=== PATIENT | female | born 1950 | race Caucasian/White ===

== ENCOUNTER → 2017-04-14 | Outpatient (CLI) | payer MEDICARE ==
--- NOTE | 2017-04-15 13:54 | MM ---
Reason for exam: screening (asymptomatic). Last mammogram was performed 1 year ago. History: Patient is postmenopausal and is nulliparous. Family history of breast cancer in sister at age 58. Benign stereotactic core biopsy of the left breast, January 14, 2004. Core biopsy of the left breast. Took hormonal contraceptives for 1 year. Physical Findings: A clinical breast exam by your physician is recommended on an annual basis and results should be correlated with mammographic findings. MG 3D Screening Mammo W/Cad Bilateral CC and MLO view(s) were taken. Prior study comparison: April 09, 2016, bilateral MG 3d screening mammo w/cad. April 05, 2015, bilateral MG screening mammo w CAD. The breast tissue is heterogeneously dense. This may lower the sensitivity of mammography. No suspicious abnormality. No significant changes when compared with prior studies. ASSESSMENT: Negative, BI-RAD 1 RECOMMENDATION: Routine screening mammogram of both breasts in 1 year.
== END | disposition home or self-care (01) ==
LOC: RADMAMWWP 14:50
PROVIDERS: ATTEND Obstetrics & Gynecology
DX: Z12.31 Encounter for screening mammogram for malignant neoplasm of breast (principal); Z80.3 Family history of malignant neoplasm of breast
CPT/HCPCS: 77063; G0202

== ENCOUNTER 2017-10-13 10:20 | Observation (INO) | payer MEDICARE ==
[2017-10-13] MEDS ORDERED: SODIUM CHLORIDE 0.9% 1,000 ML IV STA (10:45)
[2017-10-13] MEDS ORDERED: ONDANSETRON 4 MG/2 ML VIAL IVP STA (10:45)
[2017-10-13] MEDS ORDERED: DEXAMETHASONE SOD PHOSPHATE 10 MG/ML 1 ML VIAL IV STA (10:46)
[2017-10-13] MEDS ORDERED: MORPHINE SULFATE 4 MG/ML SYRINGE IVP STA (10:47)
--- NOTE | 2017-10-13 11:19 | ED ---
General Adult HPI - General Chief complaint: Recheck/Abnormal Lab/Rx Stated complaint: Head pain Time Seen by Provider: 10/13/17 10:33 Source: patient, RN notes reviewed, old records reviewed Mode of arrival: ambulatory - History of Present Illness Initial comments: This is a 57-year-old female to the ER for evaluation regarding headache. Severe headache 3 days. No history of headache. Patient denies vision loss denies any other complaints. Patient does have shooting pain in her forehead and right side of her head. Patient denies any vision changes currently. No other neurological deficit - Related Data Home Medications Medication Instructions Recorded Confirmed Azithromycin [Zithromax] 250 mg PO MOWEFR 10/13/17 10/13/17 Bimatoprost [Lumigan .01% Ophth 1 drop BOTH EYES HS 10/13/17 10/13/17 Soln] Calcium Carbonate [Calcium] 600 mg PO DAILY 10/13/17 10/13/17 Ibuprofen [Advil] 200 mg PO Q6HR PRN 10/13/17 10/13/17 Mometasone/Formoterol [Dulera 200 2 puff INHALATION RT-BID 10/13/17 10/13/17 Mcg/5 Mcg Inhaler] Tiotropium Stanley [Spiriva] 1 cap INHALATION RT-DAILY 10/13/17 10/13/17 Previous Rx's Medication Instructions Recorded predniSONE 60 mg PO DAILY #30 tab 10/13/17 Allergies Allergy/AdvReac Type Severity Reaction Status Date / Time budesonide [From Symbicort] AdvReac ANXIETY Verified 10/13/17 11:46 formoterol [From Symbicort] AdvReac ANXIETY Verified 10/13/17 11:46 Review of Systems ROS Statement: Those systems with pertinent positive or pertinent negative responses have been documented in the HPI. ROS Other: All systems not noted in ROS Statement are negative. Past Medical History Past Medical History: COPD History of Any Multi-Drug Resistant Organisms: None Reported Past Surgical History: Hernia Repair Additional Past Surgical History / Comment(s): Carpal tunnel; cataract Past Psychological History: No Psychological Hx Reported Smoking Status: Former smoker Past Alcohol Use History: None Reported Past Drug Use History: None Reported General Exam General appearance: alert, in no apparent distress Head exam: Present: atraumatic, normocephalic, normal inspection Eye exam: Present: normal appearance, PERRL, EOMI. Absent: scleral icterus, conjunctival injection, periorbital swelling ENT exam: Present: normal exam, mucous membranes moist Neck exam: Present: normal inspection. Absent: tenderness, meningismus, lymphadenopathy Respiratory exam: Present: normal lung sounds bilaterally. Absent: respiratory distress, wheezes, rales, rhonchi, stridor Cardiovascular Exam: Present: regular rate, normal rhythm, normal heart sounds. Absent: systolic murmur, diastolic murmur, rubs, gallop, clicks GI/Abdominal exam: Present: soft, normal bowel sounds. Absent: distended, tenderness, guarding, rebound, rigid Extremities exam: Present: normal inspection, full ROM, normal capillary refill. Absent: tenderness, pedal edema, joint swelling, calf tenderness Back exam: Present: normal inspection Neurological exam: Present: alert, oriented X3, CN II-XII intact Psychiatric exam: Present: normal affect, normal mood Skin exam: Present: warm, dry, intact, normal color. Absent: rash Course Vital Signs 10/13/17 10/13/17 10/13/17 10:25 10:46 12:22 Temperature 98.5 F Pulse Rate 104 H 95 85 Respiratory 18 18 18 Rate Blood Pressure 195/98 166/92 160/82 O2 Sat by Pulse 99 99 Oximetry - Reevaluation(s) Reevaluation #1: 10/13/17 13:03 Patient headache is resolved, remains without significant neurological deficit no vision changes Reevaluation #2: 10/13/17 13:03 Patient encouraged to stay in the ER for evaluation of possible temporal arteritis, patient refusing state, will discharge on steroids Medical Decision Making - Medical Decision Making 67 female positive headache right-sided headache right-sided temporal tenderness , positive arteritis, will admit - Lab Data Result diagrams: 10/13/17 11:20 10/13/17 11:20 Lab Results 10/13/17 10/13/17 Range/Units 11:20 11:20 WBC 4.5 (3.8-10.6) k/uL RBC 4.59 (3.80-5.40) m/uL Hgb 13.4 (11.4-16.0) gm/dL Hct 40.1 (34.0-46.0) % MCV 87.4 (80.0-100.0) fL MCH 29.2 (25.0-35.0) pg MCHC 33.4 (31.0-37.0) g/dL RDW 13.4 (11.5-15.5) % Plt Count 295 (150-450) k/uL Neutrophils % 66 % Lymphocytes % 22 % Monocytes % 8 % Eosinophils % 1 % Basophils % 0 % Neutrophils # 3.0 (1.3-7.7) k/uL Lymphocytes # 1.0 (1.0-4.8) k/uL Monocytes # 0.3 (0-1.0) k/uL Eosinophils # 0.0 (0-0.7) k/uL Basophils # 0.0 (0-0.2) k/uL ESR 25 H (0-20) mm/hr Sodium 138 (137-145) mmol/L Potassium 4.9 (3.5-5.1) mmol/L Chloride 101 (98-107) mmol/L Carbon Dioxide 28 (22-30) mmol/L Anion Gap 9 mmol/L BUN 14 (7-17) mg/dL Creatinine 0.70 (0.52-1.04) mg/dL Est GFR (CKD-EPI)AfAm >90 (>60 ml/min/1.73 sqM) Est GFR (CKD-EPI)NonAf 90 (>60 ml/min/1.73 sqM) Glucose 97 (74-99) mg/dL Calcium 10.1 (8.4-10.2) mg/dL Total Bilirubin 0.3 (0.2-1.3) mg/dL AST 27 (14-36) U/L ALT 30 (9-52) U/L Alkaline Phosphatase 84 (38-126) U/L C-Reactive Protein 14.4 H (<10.0) mg/L Total Protein 6.5 (6.3-8.2) g/dL Albumin 3.9 (3.5-5.0) g/dL - Radiology Data Radiology results: report reviewed (CT brain is negative for acute disease), image reviewed Disposition Clinical Impression: Temporal arteritis, Headache, Hypertension Disposition: ADMITTED IP TO THIS [facility] Condition: Good Instructions: Temporal Arteritis (ED), Acute Headache (ED) Prescriptions: predniSONE 60 mg PO DAILY #30 tab Is patient prescribed a controlled substance at d/c from ED?: No Referrals: Jluis Mohan DO [Primary Care Provider] - 1-2 days
[2017-10-13 11:36] LABS: Basophils % (A) 0 %; Eosinophils % (A) 1 %; HCT 40.1 % (34.0-46.0); HGB 13.4 gm/dL (11.4-16.0); Lymphocytes % (A) 22 %; MCH 29.2 pg (25.0-35.0); MCHC 33.4 g/dL (31.0-37.0); MCV 87.4 fL (80.0-100.0); Mean Platelet Volume 6.5; Monocytes # (A) 0.3 k/uL (0-1.0); Monocytes % (A) 8 %; Neutrophils % (A) 66 %; Platelet Count 295 k/uL (150-450); RBC 4.59 m/uL (3.80-5.40); RDW 13.4 % (11.5-15.5); WBC 4.5 k/uL (3.8-10.6)
[2017-10-13 11:47] LABS: ALT 30 U/L (9-52); AST 27 U/L (14-36); Albumin 3.9 g/dL (3.5-5.0); Alkaline Phosphatase 84 U/L (38-126); Anion Gap 9 mmol/L; Blood Urea Nitrogen 14 mg/dL (7-17); C Reactive Protein 14.4 mg/L (<10.0); Calcium 10.1 mg/dL (8.4-10.2); Carbon Dioxide 28 mmol/L (22-30); Chloride 101 mmol/L (98-107); Glucose 97 mg/dL (74-99); Potassium 4.9 mmol/L (3.5-5.1); Sodium 138 mmol/L (137-145); Total Bilirubin 0.3 mg/dL (0.2-1.3); Total Protein 6.5 g/dL (6.3-8.2)
--- NOTE | 2017-10-13 12:01 | CT ---
EXAMINATION TYPE: CT brain wo con DATE OF EXAM: 10/13/2017 HISTORY: Head pain, right-sided headache CT DLP: 1100 mGycm. Automated Exposure Control for Dose Reduction was Utilized. TECHNIQUE: CT scan of the head is performed without contrast. COMPARISON: None. FINDINGS: There is no acute intracranial hemorrhage or midline shift identified. There is diffuse v entricular and sulcal prominence consistent with diffuse age-related cerebral atrophy. There are vag ue areas of low-attenuation in the periventricular white matter consistent suspected on basis of prod uct of chronic small vessel ischemic change in patient of this age. The globes are intact and the vi sualized sinuses are clear. IMPRESSION: No acute intracranial hemorrhage or midline shift. There is mild to moderate diffuse a ge-related cerebral atrophy and probable chronic small vessel ischemic change noted.
[2017-10-13 12:34] LABS: Erythrocyte Sedimentation Rate 25 mm/hr (0-20)
[2017-10-13] MEDS ORDERED: predniSONE 20 MG TAB PO STA (13:02)
[2017-10-13] MEDS ORDERED: ACETAMINOPHEN TAB 500 MG TAB PO PRN (15:52)
[2017-10-13] MEDS: NAPROXEN 250 MG TAB PO SCH ×2 (16:54→20:40)
[2017-10-13] MEDS ORDERED: DEXAMETHASONE SOD PHOSPHATE 4 MG/ML 1 ML VIAL IV SCH (18:00)
[2017-10-13] MEDS ORDERED: RX INFO: IV CONTRAST WAS GIVEN 1 EACH MISC MISCELLANE PRN (21:06)
[2017-10-13] MEDS ORDERED: LATANOPROST 0.005% OPHTH DROPS 2.5 ML BTL BOTH EYES SCH (22:30)
[2017-10-13] MEDS: OXcarbazepine 150 MG TAB PO SCH (22:54)
--- NOTE | 2017-10-13 22:54 | CT ---
EXAMINATION TYPE: CT angio head neck DATE OF EXAM: 10/13/2017 HISTORY: Right side facial pain. COMPARISON: NONE CT DLP: 219.1 mGycm. Automated Exposure Control for Dose Reduction was Utilized. TECHNIQUE: CTA scan of the neck and brain is performed with IV Contrast, patient injected with 65ml mL of Isovue 370, axial images are obtained, coronal and sagittal reformatted images are reviewed. Th ree-D reconstructed images are created on an independent workstation and reviewed. FINDINGS: There is normal branching pattern of the great vessels on the aortic arch. There is approximate 30% s tenosis at the origin left internal carotid artery. There is mild plaque and 10-15% stenosis at the o rigin right internal carotid artery. There is arterial flow in the common internal and external carot id arteries bilaterally. There is arterial flow in both vertebral arteries which are fairly symmetric . There is no evidence of carotid or vertebral artery dissection. There is arterial flow in the anter ior middle and posterior cerebral arteries. There is arterial flow in the vertebrobasilar artery syst em. There is patency of the posterior communicating arteries. I see no mass effect. There is no evide nce of aneurysm or neovascularity. There is normal contrast opacification of the venous sinuses. CONCLUSION: Minimal plaque at the carotid artery bifurcations. No evidence of hemodynamically significant stenosi s. Normal CT angiogram of the brain.
--- NOTE | 2017-10-13 23:41 | HP ---
HISTORY AND PHYSICAL DATE OF SERVICE: 10/13/2017 PRESENTING COMPLAINT: Severe headache. HISTORY OF PRESENTING COMPLAINT: This is a very pleasant 67-year-old patient of Dr. Mohan who presents with a severe headache. Patient's headache started about 4 days ago, worse on the right side, localized, and also affecting the face. It is very sharp, lightening, like a pick ax. Vision was not affected. It comes and goes and can be worse with talking or chewing food. Patient was told in the past that she had neuralgia and did get some treatment for that in the past; does not remember what. Has had it occasionally, but now it has become rather severe. No change in vision. No change in speech. No weakness in the arms or legs. Does not feel any weakness in the muscles or difficulty getting up. REVIEW OF SYSTEMS: CONSTITUTIONAL: None. HEENT: As above. RESPIRATORY: None. CARDIOVASCULAR: None. GASTROINTESTINAL: None. GENITOURINARY: None. MUSCULOSKELETAL: None. DERMATOLOGICAL: None. HEMATOLOGICAL: None. LYMPHATICS: None. PSYCHIATRY: None. NEUROLOGICAL: None. PAST MEDICAL HISTORY: 1. COPD. 2. Possible glaucoma. 3. Neuralgia on the right side of the scalp. PAST SURGICAL HISTORY: 1. Breast surgery. 2. Hernia repair. 3. Bilateral carpal tunnel. 4. Bilateral cataract removal with lens. 5. Bronchoscopy. 6. Right inguinal hernia repair. SOCIAL HISTORY: Lives by herself. Smoked for 21 years; stopped in 2009. Denies alcohol. 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 FAMILY HISTORY: Father in his 50s from COPD. HOME MEDICATIONS: 1. Advil 200 mg q.6 p.r.n. 2. Calcium 600 mg p.o. daily. 3. Lumigan 0.01% one drop to both eyes at bedtime. 4. Spiriva 1 capsule daily. 5. Dulera 200/5 two puffs b.i.d. 6. Zithromax 250 mg Wednesday, Wednesday and Wednesday. ALLERGIES: BUDESONIDE. PHYSICAL EXAMINATION: Temperature 97.8, pulse 99, respiration 18, blood pressure 141/81, pulse ox 92% on room air. GENERAL APPEARANCE: Sitting up. Average build. Not in distress. EYES: Pupils equal. Conjunctivae normal. HEENT: Patient has some tenderness in the right side of the scalp. I do not see any pulsating or prominence of scalp artery. External appearance of nose and ears normal. Oral cavity normal. NECK: JVD not raised. Mass not palpable. RESPIRATORY: Effort normal. LUNGS: Slightly decreased breath sounds. CARDIOVASCULAR: First and second sounds normal. No edema. ABDOMEN: Soft, nontender. Liver and spleen not palpable. LYMPHATIC: No lymph node palpable in neck or axillae. PSYCHIATRY: Alert and oriented x3. Mood and affect normal. NEUROLOGICAL: Pupils equal. Cranial nerves grossly intact. Power and sensation grossly intact. INVESTIGATIONS: White count 4.5, hemoglobin 13.4. ESR 25. Potassium 4.9. BUN and creatinine are normal. CRP 14.4. ASSESSMENT: This patient presented with localized severe headache on the right side of the scalp and extending to the right upper part of the face. There are no visual symptoms, no pulsating arteries, no muscle weakness, etc. This could well be trigeminal neuralgia with acute flareup at presentation, but given a slight increase in ESR and CRP, temporal arteritis cannot be ruled out. Patient was given steroids, and I will also start the patient on Trileptal. I will do a CT angio of the neck and the brain. Neurology was consulted. Will consult Vascular Surgery for a temporal artery biopsy. Care was discussed with the patient. Questions were answered. MMODL / IJN: [id number] /
[2017-10-14] MEDS: IPRATROPIUM-ALBUTEROL 3 ML NEB INHALATION SCH ×4 (00:43→19:00)
[2017-10-14 08:00] VITALS: RESP 18
[2017-10-14] MEDS: NAPROXEN 250 MG TAB PO SCH (08:34)
[2017-10-14] MEDS: OXcarbazepine 150 MG TAB PO SCH (08:34)
[2017-10-14] MEDS ORDERED: predniSONE 20 MG TAB PO SCH (09:00)
[2017-10-14] MEDS ORDERED: ENOXAPARIN 40 MG/0.4 ML SYRINGE SQ SCH (09:00)
--- NOTE | 2017-10-14 10:48 | CONS ---
CONSULTATION This is a 67-year-old female. Patient was consulted for right temporal artery biopsy. Patient came with history of headache localized to the right temporal area for the last 4 days. Patient was put on steroid and had an ESR which was found to be 25. Patient did not has any vision problem. Patient's headache comes and goes. MEDICAL HISTORY: History of COPD. SURGICAL HISTORY: Patient had a breast surgery, hernia repair, bilateral carpal tunnel, bilateral cataract and right inguinal hernia repair. PHYSICAL EXAMINATION: Patient was seen in her room. Neck is supple. No bruit appreciated. Patient's temporal artery is palpable. Patient has a right temporal headache. Chest is clear. Abdomen is soft. NEURO: Normal motor function. PLAN: We will do the carotid ultrasound and schedule for a right temporal artery biopsy. Risks and complications of bleeding, infection has been discussed. MMODL / IJN: [id number] /
[2017-10-14 17:12] VITALS: BP 152/72; PULSE 103; TEMP 98
--- NOTE | 2017-10-15 07:34 | DS ---
DISCHARGE SUMMARY DATE OF ADMISSION: 10/13/17. DATE OF DISCHARGE: 10/14/17 FINAL DIAGNOSES: 1. Acute severe trigeminal neuralgia on the right scalp. 2. Chronic obstructive pulmonary disease in an ex-smoker. 3. Glaucoma. HOSPITAL COURSE: This is a patient who has had prior episodes of neuralgia, presents with severe headache, rather classic of trigeminal neuralgia. The patient had a minimally elevated ESR and CRP. I talked to Dr. Feng today. He said to discontinue the prednisone and cancel temporal artery biopsy. The patient's symptoms were more compatible with trigeminal neuralgia and the patient was started on Tegretol. Symptoms are doing better. On examination tenderness on the right side of the face and right side of the scalp. The patient did also have a CT angio was unremarkable. CONSULTATION: Dr. Feng from Neurology. DISCHARGE MEDICATIONS: 1. Zithromax as before. 2. Lumigan 0.1% 1 drop to both eyes q.h.s. 3. Calcium 600 mg p.o. daily. 4. Advil 200 mg q.6h p.r.n. 5. Dulera 200/5 2 puffs b.i.d. 6. Spiriva 1 capsule p.o. daily. 7. Tegretol 100 mg p.o. t.i.d. Follow up with Dr. Mohan in 1 week. Follow up with Dr. Feng in one week. MMODL / IJN: [id number] /
--- NOTE | 2017-10-15 09:31 | CONS ---
CONSULTATION DATE OF CONSULTATION: 10/14/2017 CHIEF COMPLAINT: Facial pain. HISTORY OF PRESENT ILLNESS: The patient is a pleasant 67-year-old female, who is being evaluated by the neurology service per the request of Dr. Nolen, for right facial pain. The patient states that over the past several days, she has been having a sharp stabbing electrical pain over her right forehead and maxillary region of the face. She also states that her face is extremely sensitive to the touch and anything that touches it can bring on this sharp electrical pain. She denies any visual loss, but does complain of some eye pain as well on the right side. The patient had history of trigeminal neuralgia several years ago, which was treated with Tegretol and the symptoms did resolve. She states that this episode is significantly worse as far as intensity. She denies any recent injuries. A CT scan of the brain was done, which showed generalized atrophy and small- vessel ischemic changes. A CT angiogram of the brain and neck were normal. Her Sed rate was slightly elevated at 25 and her CRP was slightly elevated at 14.4. Her CBC and comprehensive metabolic profile were normal. PAST MEDICAL HISTORY: Chronic obstructive pulmonary disease, history of trigeminal neurology, history of carpal tunnel syndrome, carpal tunnel release surgery, breast surgery, hernia repair, cataract surgery. SOCIAL HISTORY: The patient is a former smoker. She denies any alcohol or drug use. FAMILY HISTORY: Positive for chronic obstructive pulmonary disease. HOME MEDICATIONS: Reviewed in the chart. ALLERGIES: BUDESONIDE. REVIEW OF SYSTEMS: As mentioned above and otherwise negative. PHYSICAL EXAM: Vital signs show a temperature of 97.5, pulse 80, respiration 18, blood pressure 126/74. GENERAL APPEARANCE: The patient is a well-developed, elderly female, who appears to be in no acute distress. HEENT: Normocephalic, atraumatic. No tenderness to palpation is present along the temporal region. No facial asymmetry is seen. Neck is supple with no masses felt. CARDIOVASCULAR: Regular rate and rhythm. ABDOMEN: Nontender, nondistended. Extremities showed no edema or clubbing. NEUROLOGICAL EXAM: The patient is alert, aware and oriented x3. Speech and language are normal. Strength is full in all 4 extremities. Sensory exam was normal to light touch in all 4 extremities. No pronator drift is seen. No tremors or seizure- like activity is noticed. Cranial nerve testing showed significant hypersensitivity in the right V1 and V2 distribution. IMPRESSION: Trigeminal neuralgia, right V1 and V2 distribution. RECOMMENDATION: The patient's symptoms are consistent with acute trigeminal neuralgia. There was concern for temporal arteritis from the emergency room admission, but the patient's symptoms are not consistent with this. She has no tenderness to palpation over the temporal artery and her Sed rate and CRP are minimally elevated. Although she does have some eye pain, she denies any visual loss. Her physical examination is also consistent with trigeminal neuralgia. I discussed with the patient results of her workup. I also discussed with her treatment options. I will start her on Tegretol 100 mg 3 times daily. Possible side effects were discussed with the patient. She will follow up in clinic for further management. From a neurology standpoint, the patient is cleared for discharge. If you have any further questions, please feel free to contact me. Thank you for allowing me to participate in the care of your patient. If you have any questions, please feel free to contact me. KEENAN / IJN: [id number] / TABBY
== END 2017-10-14 20:08 | disposition home or self-care (01) ==
LOC: EC 10:20 → 3OBS 13:04
PROVIDERS: ADMIT Hospitalist; ATTEND Hospitalist
DX: G50.0 Trigeminal neuralgia (principal); J44.9 Chronic obstructive pulmonary disease, unspecified; R70.0 Elevated erythrocyte sedimentation rate; H40.9 Unspecified glaucoma; Z87.891 Personal history of nicotine dependence; Z88.8 Allergy status to other drugs, medicaments and biological substances; Z79.899 Other long term (current) drug therapy; Z79.2 Long term (current) use of antibiotics
CPT/HCPCS: 96374 ×2; 96375 ×3; 96361 ×6; 99285 ×2; 96372; 96376; 36415; 94640 ×2; 80053; 85652; 85025; 86140; 87040; 70496; 70450; 70498; G0378 ×2; J2270; J1100 ×2; J2405; J1650; J7512; Q9967

== ENCOUNTER → 2018-05-12 | Outpatient (CLI) | payer MEDICARE ==
--- NOTE | 2018-05-12 22:12 | BD ---
EXAMINATION TYPE: Axial Bone Density DATE OF EXAM: 05/12/2018 COMPARISON: Prior DEXA bone scan 2012. CLINICAL HISTORY: Postmenopausal female Height: 64.5 Weight: 137.0 FRAX RISK QUESTIONS: Alcohol (3 or more units per day): no Family History (Parent hip fracture): yes Glucocorticoids (More than 3mos): no (Ex: prednisone, prednisolone, methylprednisolone, dexamethasone, and hydrocortisone). History of Fracture in Adulthood: yes Secondary Osteoporosis: 1. Type 1 Diabetes: no 2. Hyperthyroidism: no 3. Menopause before 45: no 4. Malnutrition: no 5. Chronic liver disease: no Rheumatoid Arthritis: no Current Tobacco Use: no RISK FACTORS HISTORY OF: Family History of Osteoporosis: yes Active: no Diet low in dairy products/other sources of calcium: yes Postmenopausal woman: age 50 Lost more than 2 inches in height since high school: yes Frequent falls: no MEDICATIONS: inhalers, Zithromax, eye drops Prednisone or other steroids: prednisone How Long: about 1 month Additional History: EXAM MEASUREMENTS: Bone mineral densitometry was performed using the [employer] System. Bone mineral density as measured about the Lumbar spine is: ----- L1-L4(G/cm2): 1.056 T Score Values are as follows: ----- L2: -0.7 ----- L3: -0.8 ----- L4: -1.7 ----- L1-L4: -1.0 Bone mineral density has: decreased -10.1 % since study of: 03.14.2013 Bone mineral density about the R hip (g/cm2): 0.887 Bone mineral density about the L hip (g/cm2): 0.891 T Score values are as follows: -----R Neck: -1.1 -----L Neck: -1.1 -----R Total: -1.5 -----L Total: -0.9 Bone mineral density has: decreased -3.3 % since study of: 03.14.2013 IMPRESSION: Osteopenia (T Score between -2.5 and -1) is now present femoral neck level in both hips. There is slightly increased risk of fracture and the patient may be considered for treatment. Re-Screen 2-5 years. NOTE: T-SCORE=SD OF THE YOUNG ADULT MEAN.
--- NOTE | 2018-05-13 11:14 | MM ---
Reason for exam: screening (asymptomatic). Last mammogram was performed 1 year and 1 month ago. History: Patient is postmenopausal and is nulliparous. Family history of breast cancer in sister at age 58. Benign stereotactic core biopsy of the left breast, January 14, 2004. Core biopsy of the left breast. Took hormonal contraceptives for 1 year. Physical Findings: A clinical breast exam by your physician is recommended on an annual basis and results should be correlated with mammographic findings. MG Screening Mammo w CAD Bilateral CC and MLO view(s) were taken. Prior study comparison: April 14, 2017, bilateral MG 3d screening mammo w/cad. April 09, 2016, bilateral MG 3d screening mammo w/cad. The breast tissue is heterogeneously dense. This may lower the sensitivity of mammography. No significant changes when compared with prior studies. ASSESSMENT: Benign, BI-RAD 2 RECOMMENDATION: Routine screening mammogram of both breasts in 1 year.
== END | disposition home or self-care (01) ==
LOC: RADMAMWWP 14:43
PROVIDERS: ATTEND Obstetrics & Gynecology
DX: Z12.31 Encounter for screening mammogram for malignant neoplasm of breast (principal); Z13.820 Encounter for screening for osteoporosis; M85.852 Other specified disorders of bone density and structure, left thigh; M85.851 Other specified disorders of bone density and structure, right thigh
CPT/HCPCS: 77067; 77080

== ENCOUNTER 2018-09-13 11:57 | Inpatient (IN) | payer MEDICARE ==
[2018-09-13] MEDS ORDERED: methylPREDNISolone SOD SUCCI 125 MG/2 ML VIAL IV STA (12:11)
[2018-09-13] MEDS ORDERED: ALBUTEROL NEBULIZED 2.5 MG/3 ML INHALATION STA ×2 (12:11→15:43)
[2018-09-13] MEDS ORDERED: IPRATROPIUM 0.5 MG/2.5 ML NEBU INHALATION STA (12:11)
[2018-09-13] MEDS ORDERED: SODIUM CHLORIDE 0.9% 500 ML 500 ML IV STA (12:11)
[2018-09-13] MEDS ORDERED: AZITHROMYCIN 500 MG in SODIUM CHLORIDE 0.9% 250 ML IVPB STA (12:11)
--- NOTE | 2018-09-13 12:29 | ED ---
General Adult HPI - General Chief complaint: Shortness of Breath Stated complaint: Sob/chest pain Time Seen by Provider: 09/13/18 12:05 Source: patient, RN notes reviewed, old records reviewed Mode of arrival: wheelchair - History of Present Illness Initial comments: 68-year-old female history COPD presents for evaluation of cough and dyspnea. Patient quit smoking several years ago. She does have history of COPD, she's had cough and dyspnea for the past 2 weeks, this worsened over the past 24 hours. Cough is nonproductive. Initially began as a sore throat with URI sympt oms. Has progressed to more severe dyspnea. She does complain of chest pain worse with cough and chest congestion. No history of CAD, no history of CHF. Denies fever or chills. - Related Data Home Medications Medication Instructions Recorded Confirmed Azithromycin [Zithromax] 250 mg PO MOWEFR 10/13/17 09/13/18 Bimatoprost [Lumigan .01% Ophth 1 drop BOTH EYES HS 10/13/17 09/13/18 Soln] Mometasone/Formoterol [Dulera 200 2 puff INHALATION RT-BID 10/13/17 09/13/18 Mcg/5 Mcg Inhaler] Tiotropium [place] [Spiriva] 1 cap INHALATION RT-DAILY 10/13/17 09/13/18 Benzonatate [Tessalon Perles] 200 mg PO TID PRN 09/13/18 09/13/18 Ibuprofen [Motrin Ib] 200 mg PO Q4H PRN 09/13/18 09/13/18 predniSONE 5 mg PO Q48H 09/13/18 09/13/18 predniSONE See Taper PO DIRECTED 09/13/18 09/13/18 Allergies Allergy/AdvReac Type Severity Reaction Status Date / Time budesonide [From Symbicort] AdvReac ANXIETY Verified 09/13/18 12:39 formoterol [From Symbicort] AdvReac ANXIETY Verified 09/13/18 12:39 Review of Systems ROS Statement: Those systems with pertinent positive or pertinent negative responses have been documented in the HPI. ROS Other: All systems not noted in ROS Statement are negative. Past Medical History Past Medical History: COPD, Eye Disorder Additional Past Medical History / Comment(s): Bronchitis, bilateral eyes with increased intraocular pressure-not glaucoma yet, neuralgia R side forhead in past. History of Any Multi-Drug Resistant Organisms: None Reported Past Surgical History: Breast Surgery, Hernia Repair, Orthopedic Surgery Additional Past Surgical History / Comment(s): Bilateral carpal tunnel; bilateral cataract removal with lens, bronchoscopy, R inguinal hernia repair, co lonoscopy, benign L breast biopsy. Past Anesthesia/Blood Transfusion Reactions: No Reported Reaction Past Psychological History: No Psychological Hx Reported Smoking Status: Former smoker Past Alcohol Use History: None Reported Past Drug Use History: None Reported - Past Family History Father Family Medical History: COPD Additional Family Medical History / Comment(s): Father in his 50s of COPD. He was a smoker. Mother Family Medical History: CVA/TIA, Hypertension, Pneumonia Additional Family Medical History / Comment(s): Mother fell at age 85 and fractured her hip. Post op she became HTN and had a stroke and then ended up w ith pneumonia and . General Exam General appearance: alert, in no apparent distress Head exam: Present: atraumatic, normocephalic Eye exam: Present: normal appearance, PERRL, EOMI ENT exam: Present: normal exam Neck exam: Present: normal inspection. Absent: tenderness, meningismus Respiratory exam: Present: respiratory distress, wheezes, rhonchi, accessory muscle use, decreased breath sounds, prolonged expiratory Cardiovascular Exam: Present: normal rhythm, tachycardia GI/Abdominal exam: Present: soft. Absent: distended, tenderness, guarding, rebound Neurological exam: Present: alert, oriented X3, CN II-XII intact. Absent: motor sensory deficit Psychiatric exam: Present: normal affect, normal mood Skin exam: Present: warm, dry, intact. Absent: cyanosis, diaphoretic Course Vital Signs 09/13/18 09/13/18 09/13/18 12:01 12:26 12:45 Temperature 98.4 F Pulse Rate 122 H 112 H 117 H Pulse Rate [ Methods Analyst Data Processing ] Respiratory 24 Rate Blood Pressure 180/88 O2 Sat by Pulse 94 L Oximetry 09/13/18 09/13/18 09/13/18 12:53 13:08 13:57 Temperature 97.7 F Pulse Rate 111 H 122 H 124 H Pulse Rate [ 111 H Methods Analyst Data Processing ] Respiratory 28 H 22 Rate Blood Pressure 157/83 151/76 O2 Sat by Pulse 98 96 Oximetry 09/13/18 14:32 Temperature Pulse Rate 112 H Pulse Rate [ Methods Analyst Data Processing ] Respiratory 20 Rate Blood Pressure 142/84 O2 Sat by Pulse 96 Oximetry EKG Findings - EKG Comments: EKG Findings:: EKG: Sinus tachycardia, significant right atrial enlargement, no ST segment changes, rate of 112, GA interval 152, QRS duration 78, QTC 417 Medical Decision Making - Medical Decision Making 60-year-old female presents with worsening cough and dyspnea, she has been on appropriate outpatient treatment and is not improved. She has history of COPD, she is diffuse wheezing and rhonchi bilaterally. Chest x-ray obtained, shows hyperinflation consistent with COPD, no focal pneumonia, no pneumothorax. Patient has mild leukocytosis at 12 she has been on steroids. Normal CMP, negative troponin, negative d-dimer, negative BNP, influenza negative. She will be admitted for further treatment of COPD exacerbation. Pulmonology placed on consult. - Lab Data Result diagrams: 09/13/18 12:38 09/13/18 12:38 Lab Results 09/13/18 09/13/18 09/13/18 Range/Units 12:38 12:38 12:38 WBC 12.0 H (3.8-10.6) k/uL RBC 5.11 (3.80-5.40) m/uL Hgb 14.7 (11.4-16.0) gm/dL Hct 46.3 H (34.0-46.0) % MCV 90.5 (80.0-100.0) fL MCH 28.8 (25.0-35.0) pg MCHC 31.8 (31.0-37.0) g/dL RDW 13.7 (11.5-15.5) % Plt Count 306 (150-450) k/uL Neutrophils % 92 % Lymphocytes % 4 % Monocytes % 4 % Eosinophils % 1 % Basophils % 0 % Neutrophils # 11.0 H (1.3-7.7) k/uL Lymphocytes # 0.4 L (1.0-4.8) k/uL Monocytes # 0.5 (0-1.0) k/uL Eosinophils # 0.1 (0-0.7) k/uL Basophils # 0.0 (0-0.2) k/uL PT (9.0-12.0) sec INR (<1.2) APTT (22.0-30.0) sec D-Dimer (<0.60) mg/L FEU Sodium 137 (137-145) mmol/L Potassium 4.7 (3.5-5.1) mmol/L Chloride 101 (98-107) mmol/L Carbon Dioxide 25 (22-30) mmol/L Anion Gap 11 mmol/L BUN 12 (7-17) mg/dL Creatinine 0.72 (0.52-1.04) mg/dL Est GFR (CKD-EPI)AfAm >90 (>60 ml/min/1.73 sqM) Est GFR (CKD-EPI)NonAf 87 (>60 ml/min/1.73 sqM) Glucose 124 H (74-99) mg/dL Plasma Lactic Acid Jer (0.7-2.0) mmol/L Calcium 10.0 (8.4-10.2) mg/dL Magnesium 2.0 (1.6-2.3) mg/dL Total Bilirubin 0.6 (0.2-1.3) mg/dL AST 21 (14-36) U/L ALT 24 (9-52) U/L Alkaline Phosphatase 76 (38-126) U/L Troponin I (0.000-0.034) ng/mL NT-Pro-B Natriuret Pep 100 pg/mL Total Protein 7.1 (6.3-8.2) g/dL Albumin 4.4 (3.5-5.0) g/dL Influenza Type A RNA (Not Detectd) Influenza Type B (PCR) (Not Detectd) 09/13/18 09/13/18 09/13/18 Range/Units 12:38 12:38 12:38 WBC (3.8-10.6) k/uL RBC (3.80-5.40) m/uL Hgb (11.4-16.0) gm/dL Hct (34.0-46.0) % MCV (80.0-100.0) fL MCH (25.0-35.0) pg MCHC (31.0-37.0) g/dL RDW (11.5-15.5) % Plt Count (150-450) k/uL Neutrophils % % Lymphocytes % % Monocytes % % Eosinophils % % Basophils % % Neutrophils # (1.3-7.7) k/uL Lymphocytes # (1.0-4.8) k/uL Monocytes # (0-1.0) k/uL Eosinophils # (0-0.7) k/uL Basophils # (0-0.2) k/uL PT 9.9 (9.0-12.0) sec INR 0.9 (<1.2) APTT 22.9 (22.0-30.0) sec D-Dimer (<0.60) mg/L FEU Sodium (137-145) mmol/L Potassium (3.5-5.1) mmol/L Chloride (98-107) mmol/L Carbon Dioxide (22-30) mmol/L Anion Gap mmol/L BUN (7-17) mg/dL Creatinine (0.52-1.04) mg/dL Est GFR (CKD-EPI)AfAm (>60 ml/min/1.73 sqM) Est GFR (CKD-EPI)NonAf (>60 ml/min/1.73 sqM) Glucose (74-99) mg/dL Plasma Lactic Acid Jer (0.7-2.0) mmol/L Calcium (8.4-10.2) mg/dL Magnesium (1.6-2.3) mg/dL Total Bilirubin (0.2-1.3) mg/dL AST (14-36) U/L ALT (9-52) U/L Alkaline Phosphatase (38-126) U/L Troponin I <0.012 (0.000-0.034) ng/mL NT-Pro-B Natriuret Pep pg/mL Total Protein (6.3-8.2) g/dL Albumin (3.5-5.0) g/dL Influenza Type A RNA Not Detected (Not Detectd) Influenza Type B (PCR) Not Detected (Not Detectd) 09/13/18 09/13/18 Range/Units 12:38 14:30 WBC (3.8-10.6) k/uL RBC (3.80-5.40) m/uL Hgb (11.4-16.0) gm/dL Hct (34.0-46.0) % MCV (80.0-100.0) fL MCH (25.0-35.0) pg MCHC (31.0-37.0) g/dL RDW (11.5-15.5) % Plt Count (150-450) k/uL Neutrophils % % Lymphocytes % % Monocytes % % Eosinophils % % Basophils % % Neutrophils # (1.3-7.7) k/uL Lymphocytes # (1.0-4.8) k/uL Monocytes # (0-1.0) k/uL Eosinophils # (0-0.7) k/uL Basophils # (0-0.2) k/uL PT (9.0-12.0) sec INR (<1.2) APTT (22.0-30.0) sec D-Dimer 0.54 (<0.60) mg/L FEU Sodium (137-145) mmol/L Potassium (3.5-5.1) mmol/L Chloride (98-107) mmol/L Carbon Dioxide (22-30) mmol/L Anion Gap mmol/L BUN (7-17) mg/dL Creatinine (0.52-1.04) mg/dL Est GFR (CKD-EPI)AfAm (>60 ml/min/1.73 sqM) Est GFR (CKD-EPI)NonAf (>60 ml/min/1.73 sqM) Glucose (74-99) mg/dL Plasma Lactic Acid Jer 1.9 (0.7-2.0) mmol/L Calcium (8.4-10.2) mg/dL Magnesium (1.6-2.3) mg/dL Total Bilirubin (0.2-1.3) mg/dL AST (14-36) U/L ALT (9-52) U/L Alkaline Phosphatase (38-126) U/L Troponin I (0.000-0.034) ng/mL NT-Pro-B Natriuret Pep pg/mL Total Protein (6.3-8.2) g/dL Albumin (3.5-5.0) g/dL Influenza Type A RNA (Not Detectd) Influenza Type B (PCR) (Not Detectd) Critical Care Time Critical Care Time: Yes Total Critical Care Time: 35 Disposition Clinical Impression: Acute exacerbation of chronic obstructive airways disease Disposition: ADMITTED IP TO THIS HOSP Condition: Stable Is patient prescribed a controlled substance at d/c from ED?: No Referrals: Jluis Mohan DO [Primary Care Provider] - 1-2 days Decision to Admit Reason: Admit from EC Decision Date: 09/13/18 Decision Time: 15:47
[2018-09-13 13:01] LABS: Basophils % (A) 0 %; Eosinophils # (A) 0.1 k/uL (0-0.7); Eosinophils % (A) 1 %; HCT 46.3 % (34.0-46.0); HGB 14.7 gm/dL (11.4-16.0); Lymphocytes # (A) 0.4 k/uL (1.0-4.8); Lymphocytes % (A) 4 %; MCH 28.8 pg (25.0-35.0); MCHC 31.8 g/dL (31.0-37.0); MCV 90.5 fL (80.0-100.0); Mean Platelet Volume 6.6; Monocytes # (A) 0.5 k/uL (0-1.0); Monocytes % (A) 4 %; Neutrophils % (A) 92 %; Platelet Count 306 k/uL (150-450); RBC 5.11 m/uL (3.80-5.40); RDW 13.7 % (11.5-15.5)
[2018-09-13 13:11] LABS: ALT 24 U/L (9-52); AST 21 U/L (14-36); Albumin 4.4 g/dL (3.5-5.0); Alkaline Phosphatase 76 U/L (38-126); Anion Gap 11 mmol/L; Blood Urea Nitrogen 12 mg/dL (7-17); Carbon Dioxide 25 mmol/L (22-30); Chloride 101 mmol/L (98-107); Glucose 124 mg/dL (74-99); Potassium 4.7 mmol/L (3.5-5.1); Sodium 137 mmol/L (137-145); Total Bilirubin 0.6 mg/dL (0.2-1.3); Total Protein 7.1 g/dL (6.3-8.2)
[2018-09-13 13:15] LABS: INR 0.9 (<1.2); Partial Thromboplastin Time 22.9 sec (22.0-30.0); Prothrombin Time 9.9 sec (9.0-12.0)
[2018-09-13] MEDS ORDERED: SODIUM CHLORIDE 0.9% 500 ML 500 ML IV ONE (14:09)
--- NOTE | 2018-09-13 14:41 | XR ---
EXAMINATION TYPE: XR chest 2V DATE OF EXAM: 09/13/2018 COMPARISON: 07/11/2013 HISTORY: Shortness of breath, cough and congestion TECHNIQUE: Frontal and lateral views of the chest are obtained. FINDINGS: There is no focal air space opacity, pleural effusion, or pneumothorax seen. Pulmonary hy perinflation and flattening of the diaphragms relate to underlying COPD. The cardiac silhouette size is within normal limits. The osseous structures are intact. Mild multilevel degenerative changes of the spine are noted. IMPRESSION: No acute cardiopulmonary process.
[2018-09-13] MEDS ORDERED: IPRATROPIUM-ALBUTEROL 3 ML NEB INHALATION PRN (15:42)
[2018-09-13] MEDS: IPRATROPIUM-ALBUTEROL 3 ML NEB INHALATION SCH ×3 (15:55→23:27)
[2018-09-13] MEDS: SODIUM CHLORIDE 0.9% 1,000 ML IV SCH (16:06)
[2018-09-13 17:08] VITALS: BMI 20.8
[2018-09-13] MEDS: methylPREDNISolone SOD SUCCI 125 MG/2 ML VIAL IV SCH ×2 (17:35→23:40)
[2018-09-13] MEDS ORDERED: NON-FORMULARY DRUG (Mometasone/Formoterol [Dulera 200 Mcg/5 Mcg Inhaler] 2 PUFF) INHALATION SCH (20:00)
[2018-09-13] MEDS: LATANOPROST 0.005% OPHTH DROPS 2.5 ML BTL BOTH EYES SCH (20:45)
[2018-09-13] MEDS: ACETAMINOPHEN TAB 325 MG TAB PO PRN (20:45)
[2018-09-13 21:19] LABS: Glucose,Whole Blood 140 mg/dL (75-99)
[2018-09-13] MEDS: INSULIN ASPART (NovoLOG) 100 UNIT/ML VIAL SQ SCH (21:41)
[2018-09-13] MEDS ORDERED: NALOXONE 0.4 MG/ML 1 ML VIAL IV PRN (21:51)
[2018-09-13] MEDS ORDERED: ALPRAZolam 0.25 MG TAB PO PRN (21:51)
[2018-09-13] MEDS ORDERED: ONDANSETRON 4 MG/2 ML VIAL IVP PRN (21:51)
[2018-09-13] MEDS ORDERED: CALCIUM CARBONATE 500 MG CHEWABLE PO PRN (21:51)
[2018-09-13] MEDS ORDERED: MAGNESIUM HYDROXIDE 2,400 MG/10 ML CUP PO PRN (21:51)
[2018-09-13] MEDS ORDERED: LACTULOSE 20 GM/30 ML CUP PO PRN (21:51)
--- NOTE | 2018-09-13 22:27 | HP ---
HISTORY AND PHYSICAL DATE OF ADMISSION: 09/13/2018 DATE OF SERVICE: 09/13/2018 PRESENTING COMPLAINT: Short of breath. HISTORY OF PRESENTING COMPLAINT: This is a very pleasant 68-year-old patient of Dr. Mohan who developed a chest cold about 2 weeks ago, went and saw Dr. Parker and was given antibiotics, steroids. She really did not feel better. She went back and got a steroid shot and was still getting short of breath, tired. No fever or chills. Some cough. No major sputum production. Tired, rundown, decreased appetite, wheezing at rest, difficulty getting about. Hence admitted to the hospital. REVIEW OF SYSTEMS: CONSTITUTIONAL: Tired. HEENT: None. RESPIRATORY: As above. CARDIOVASCULAR: None. GASTROINTESTINAL: None. GENITOURINARY: None. MUSCULOSKELETAL: None. DERMATOLOGICAL: None. HEMATOLOGICAL: None. LYMPHATICS: None. PSYCHIATRY: None. NEUROLOGICAL: None. PAST MEDICAL HISTORY: COPD, trigeminal neuralgia. PAST SURGICAL HISTORY: 1. Breast surgery. 2. Hernia repair. 3. Orthopedic surgery. 4. Bilateral carpal tunnel surgery. 5. Bilateral cataract removal with lens. 6. Right inguinal hernia repair. SOCIAL HISTORY: The patient smoked for 31 years, stopped 10 years ago. No alcohol. Lives by herself. Does work at [employer]. FAMILY HISTORY: Father of COPD in his 50s. HOME MEDICATIONS: 1. Prednisone 5 mg every 48 hours. 2. Motrin 200 mg q.4 p.r.n. 3. Zithromax 250 mg Wednesday, Wednesday, Wednesday. 4. Spiriva 1 capsule p.o. daily. 5. Dulera 200/5 two puffs b.i.d. 6. Lumigan 0.01 one drop both eyes at bedtime. 7. Tessalon Perles 200 mg t.i.d. p.r.n. ALLERGY: SYMBICORT. PHYSICAL EXAMINATION: Temperature 98.4, pulse 122, respiration 24, blood pressure 157/83, pulse ox 94% on room air. GENERAL APPEARANCE: Sitting up. Short of breath. EYES: Pupils equal. Conjunctivae normal. HEENT: External appearance of nose and ears normal. Oral cavity normal. NECK: JVD not raised. Mass not palpable. RESPIRATORY: Effort increased. Not able to speak in full sentences. LUNGS: Diminished breath sounds. Prolonged expiration. Expiratory wheezing. CARDIOVASCULAR: First and second sounds normal. No edema. ABDOMEN: Soft, non-tender. Liver and spleen not palpable. LYMPHATIC: No lymph node palpable in neck or axillae. PSYCHIATRY: Alert and oriented x3. Mood and affect normal. NEUROLOGICAL: Pupils equal. Cranial nerves grossly intact. Power and sensation grossly intact. INVESTIGATIONS: White count 12, hemoglobin 14.7, potassium 4.7. BUN and creatinine are normal. Influenza A and B negative. EKG tracing, personally reviewed by me, shows sinus tachycardia, evidence of P- pulmonale. Chest x-ray film, personally reviewed by me, shows evidence of emphysema and prominent pulmonary artery; no obvious infiltrates. ASSESSMENT: 1. Acute severe chronic obstructive pulmonary disease exacerbation, having failed outpatient treatment, in an ex-smoker. 2. Possible viral bronchitis. 3. Rule out secondary pulmonary hypertension. PLAN: Patient is started on nebulized bronchodilator every 4 hours, IV Solu-Medrol, inhaled steroids, Lovenox for DVT prophylaxis. Accu-Cheks will be followed. Care was discussed with the patient. Dr. Parker was consulted. Will also do a 2D echo to rule out pulmonary hypertension. MMODL / IJN: [id number] /
[2018-09-13] MEDS: ENOXAPARIN 40 MG/0.4 ML SYRINGE SQ SCH (22:28)
[2018-09-13] MEDS: BUDESONIDE 1 MG/2 ML NEBU INHALATION SCH (22:30)
[2018-09-13] MEDS: FORMOTEROL FUMARATE 20 MCG/2 ML NEBU INHALATION SCH (22:30)
[2018-09-14] MEDS: IPRATROPIUM-ALBUTEROL 3 ML NEB INHALATION SCH ×6 (03:13→23:57)
[2018-09-14] MEDS: SODIUM CHLORIDE 0.9% 1,000 ML IV SCH ×2 (05:07→18:07)
[2018-09-14] MEDS: methylPREDNISolone SOD SUCCI 125 MG/2 ML VIAL IV SCH ×4 (05:35→23:06)
[2018-09-14 07:20] LABS: Glucose,Whole Blood 129 mg/dL (75-99)
[2018-09-14] MEDS: BUDESONIDE 1 MG/2 ML NEBU INHALATION SCH ×2 (07:30→20:12)
[2018-09-14] MEDS: FORMOTEROL FUMARATE 20 MCG/2 ML NEBU INHALATION SCH ×2 (07:30→20:12)
[2018-09-14] MEDS ORDERED: NON-FORMULARY DRUG (Tiotropium Bromide [Spiriva] 1 CAP) INHALATION SCH (08:00)
[2018-09-14] MEDS: ENOXAPARIN 40 MG/0.4 ML SYRINGE SQ SCH (08:08)
[2018-09-14] MEDS: ACETAMINOPHEN TAB 325 MG TAB PO PRN ×2 (08:08→14:46)
[2018-09-14] MEDS: INSULIN ASPART (NovoLOG) 100 UNIT/ML VIAL SQ SCH ×4 (08:10→19:41)
[2018-09-14] MEDS ORDERED: CARVEDILOL 6.25 MG TAB PO SCH (09:30)
--- NOTE | 2018-09-14 10:35 | ECHOF ---
Referral Reason:poss sec pulm hypertension MEASUREMENTS -------- HEIGHT: 165.1 cm WEIGHT: 58.5 kg BP: 113/68 IVSd: 1.2 cm (0.6 - 1.1) LVIDd: 3.5 cm (3.9 - 5.3) LVPWd: 1.2 cm (0.6 - 1.1) IVSs: 1.5 cm LVIDs: 2.4 cm LVPWs: 1.4 cm Ao Diam: 3.2 cm (2.0 - 3.7) AV Cusp: 1.7 cm (1.5 - 2.6) LA Diam: 3.0 cm (2.7 - 3.8) MV EXCURSION: 21.518 mm (> 18.000) MV EF SLOPE: 118 mm/s (70 - 150) EPSS: 0.4 cm MV E Ronnie: 1.19 m/s MV DecT: 131 ms MV A Ronnie: 0.22 m/s MV E/A Ratio: 5.51 RAP: 5.00 mmHg RVSP: 13.38 mmHg FINDINGS -------- Sinus rhythm. This was a technically adequate study. The left ventricular size is normal. There is mild concentric left ventricular hypertrophy. Overa ll left ventricular systolic function is normal with, an EF between 55 - 60 %. The right ventricle is normal in size. The left atrial size is normal. The right atrial size is normal. The aortic valve is trileaflet, and appears structurally normal. No aortic stenosis or regurgitation. Mild mitral regurgitation is present. Mild tricuspid regurgitation present. There is no evidence of pulmonary hypertension. The right v entricular systolic pressure, as measured by Doppler, is 13.38mmHg. There is no pulmonic regurgitation present. The aortic root size is normal. There is no pericardial effusion. CONCLUSIONS -------- 1. The left ventricular size is normal. 2. There is mild concentric left ventricular hypertrophy. 3. Overall left ventricular systolic function is normal with, an EF between 55 - 60 %. 4. The right ventricle is normal in size. 5. The left atrial size is normal. 6. The right atrial size is normal. 7. The aortic valve is trileaflet, and appears structurally normal. No aortic stenosis or regurgitati on. 8. Mild mitral regurgitation is present. 9. Mild tricuspid regurgitation present. 10. There is no evidence of pulmonary hypertension. 11. The right ventricular systolic pressure, as measured by Doppler, is 13.38mmHg. 12. There is no pulmonic regurgitation present. 13. The aortic root size is normal. 14. There is no pericardial effusion. DEVELOPMENT AND HOUSING DIRECTOR: Penny Nguyen RDCS
[2018-09-14 11:43] LABS: Glucose,Whole Blood 123 mg/dL (75-99)
--- NOTE | 2018-09-14 12:49 | P.CNPUL ---
History of Present Illness Consult date: 09/14/18 Requesting physician: Deonte Nolen Reason for consult: dyspnea, cough, COPD Chief complaint: Exacerbation of COPD History of present illness: This is a 68-year-old white female patient of Dr. Mohan today's Dr. 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 Patient presented to the emergency department on 09/13/2018 for evaluation of worsening dyspnea, cough and congestion, but the outpatient t reatment, patient was seen in the pulmonary clinic on 09/02/2018 complaints of coughing, wheezing, shortness of breath. Is producing some thick yellow phlegm at that time, was negative for any fever or chills, hemoptysis or chest pain. Chest x-ray showed no evidence of infiltrates. Patient was treated with the Depo-Medrol 80 mg IM, placed on prednisone taper over 15 days, and oral Levaquin for 10 days. Patient completed the course of treatment, however she did not significantly improve, she went to the urgent care clinic 2 days ago, was treated with another prednisone taper and was given IM dose of steroids and was given some cough medication, but because of persistence of her symptoms she went to the emergency department for further evaluation and treatment. Chest x-ray showed no acute pulmonary process. Denied any fever or chills, influenza screen was negative, patient denies smoking. He quit smoking 10 years ago, does carry [id number] smoking history prior to that. She works at [employer] and could have been exposed to someone sick. White blood cell, is 12.0, hemoglobin is 14.7, d- dimer, coagulation profile were within normal limits, electrolytes and renal profile lactic acid were normal, troponins were negative 2, proBNP is within normal limits at 100, patient was tachycardic, but afebrile, she was given some IV fluids, she was placed on IV steroids, was given a dose of IV Zithromax in the emergency department and admitted for further management. Review of Systems All systems: negative Constitutional: Denies chills, Denies fever Eyes: denies blurred vision, denies pain Ears, nose, mouth and throat: Denies headache, Denies sore throat Cardiovascular: Denies chest pain, Denies shortness of breath Respiratory: Reports congestion, Reports dyspnea, Reports respiratory infections, Reports wheezing, Denies cough Gastrointestinal: Denies abdominal pain, Denies diarrhea, Denies nausea, Denies vomiting Genitourinary: Denies dysuria, Denies hematuria Musculoskeletal: Denies myalgias Integumentary: Denies pruritus, Denies rash Neurological: Denies numbness, Denies weakness Psychiatric: Denies anxiety, Denies depression Endocrine: Denies fatigue, Denies weight change Past Medical History Past Medical History: COPD, Eye Disorder Additional Past Medical History / Comment(s): Bronchitis, bilateral eyes with increased intraocular pressure-not glaucoma yet, neuralgia R side forhead in past. History of Any Multi-Drug Resistant Organisms: None Reported Past Surgical History: Breast Surgery, Hernia Repair, Orthopedic Surgery Additional Past Surgical History / Comment(s): Bilateral carpal tunnel; bilateral cataract removal with lens, bronchoscopy, R inguinal hernia repair, colonoscopy, benign L breast biopsy. Past Anesthesia/Blood Transfusion Reactions: No Reported Reaction Past Psychological History: No Psychological Hx Reported Additional Psychological History / Comment(s): Pt resides alone in a ground floor apartment with 7 steps to get in. She works at [employer]. She drives. She has a nebulizer. Smoking Status: Former smoker Past Alcohol Use History: None Reported Additional Past Alcohol Use History / Comment(s): Pt started smoking in 1978 and quit in 2009. Past Drug Use History: None Reported - Past Family History Father Family Medical History: COPD Additional Family Medical History / Comment(s): Father in his 50s of COPD. He was a smoker. Mother Family Medical History: CVA/TIA, Hypertension, Pneumonia Additional Family Medical History / Comment(s): Mother fell at age 85 and fractured her hip. Post op she became HTN and had a stroke and then ended up with pneumonia and . Medications and Allergies Home Medications Medication Instructions Recorded Confirmed Type Azithromycin [Zithromax] 250 mg PO MOWEFR 10/13/17 09/13/18 History Bimatoprost [Lumigan .01% Ophth 1 drop BOTH EYES HS 10/13/17 09/13/18 History Soln] Mometasone/Formoterol [Dulera 200 2 puff INHALATION RT-BID 10/13/17 09/13/18 History Mcg/5 Mcg Inhaler] Tiotropium [place] [Spiriva] 1 cap INHALATION RT-DAILY 10/13/17 09/13/18 History Benzonatate [Tessalon Perles] 200 mg PO TID PRN 09/13/18 09/13/18 History Ibuprofen [Motrin Ib] 200 mg PO Q4H PRN 09/13/18 09/13/18 History predniSONE 5 mg PO Q48H 09/13/18 09/13/18 History predniSONE See Taper PO DIRECTED 09/13/18 09/13/18 History Allergies Allergy/AdvReac Type Severity Reaction Status Date / Time budesonide [From Symbicort] AdvReac ANXIETY Verified 09/13/18 12:39 formoterol [From Symbicort] AdvReac ANXIETY Verified 09/13/18 12:39 Physical Exam Vitals: Vital Signs Temp Pulse Pulse Pulse Resp BP BP 09/14/18 11:30 102 H 09/14/18 11:19 100 09/14/18 08:00 111 H 22 09/14/18 07:50 108 H 09/14/18 07:41 104 H 09/14/18 07:40 104 H 09/14/18 07:30 104 H 09/14/18 06:58 98.1 F 111 H 22 151/83 09/14/18 03:25 118 H 16 09/14/18 03:13 115 H 18 09/14/18 01:10 98.2 F 111 H 19 164/77 09/13/18 23:39 111 H 09/13/18 23:29 111 H 09/13/18 20:04 100 09/13/18 19:56 100 09/13/18 19:05 98.3 F 112 H 18 155/66 09/13/18 16:41 97.5 F L 116 H 22 149/78 09/13/18 16:16 120 H 09/13/18 16:00 121 H 22 09/13/18 15:56 110 H 09/13/18 15:53 97.9 F 121 H 20 166/75 09/13/18 14:32 112 H 20 142/84 09/13/18 13:57 97.7 F 124 H 22 151/76 09/13/18 13:08 122 H 09/13/18 12:53 111 H 111 H 28 H 157/83 04/16/19 12:45 117 H BP Pulse Ox 04/17/19 11:30 09/14/18 11:19 09/14/18 08:00 09/14/18 07:50 09/14/18 07:41 09/14/18 07:40 09/14/18 07:30 09/14/18 06:58 178/79 94 L 09/14/18 03:25 09/14/18 03:13 09/14/18 01:10 96 09/13/18 23:39 09/13/18 23:29 09/13/18 20:04 09/13/18 19:56 09/13/18 19:05 92 L 09/13/18 16:41 95 09/13/18 16:16 09/13/18 16:00 09/13/18 15:56 09/13/18 15:53 93 L 09/13/18 14:32 96 09/13/18 13:57 96 09/13/18 13:08 09/13/18 12:53 98 09/13/18 12:45 Intake and Output 09/13/18 09/14/18 09/14/18 22:59 06:59 14:59 Intake Total 200 Balance 200 Intake: Oral 200 Other: # Voids 3 1 1 Weight 58.513 kg GENERAL EXAM: Alert, pleasant, 68-year-old white female, comfortable in no apparent distress. HEAD: Normocephalic/atraumatic. EYES: Normal reaction of pupils, equal size. Conjunctiva pink, sclera white. NOSE: Clear with pink turbinates. THROAT: No erythema or exudates. NECK: No masses, no JVD, no thyroid enlargement, no adenopathy. CHEST: No chest wall deformity. Symmetrical expansion. LUNGS: Equal air entry with dementia breath sounds, and expiratory wheezing CVS: Regular rate and rhythm, normal S1 and S2, no gallops, no murmurs, no rubs ABDOMEN: Soft, nontender. No hepatosplenomegaly, normal bowel sounds, no guarding or rigidity. EXTREMITIES: No clubbing, no edema, no cyanosis, 2+ pulses and upper and lower extremities. MUSCULOSKELETAL: Muscle strength and tone normal. SPINE: No scoliosis or deformity SKIN: No rashes CENTRAL NERVOUS SYSTEM: Alert and oriented -3. No focal deficits, tone is normal in all 4 extremities. PSYCHIATRIC: Alert and oriented -3. Appropriate affect. Intact judgment and insight. Results - Laboratory Findings CBC and BMP: 09/13/18 12:38 09/13/18 12:38 PT/INR, D-dimer PT 9.9 sec (9.0-12.0) 09/13/18 12:38 INR 0.9 (<1.2) 09/13/18 12:38 D-Dimer 0.54 mg/L FEU (<0.60) 09/13/18 14:30 Abnormal lab findings: Abnormal Labs 09/13/18 09/13/18 09/13/18 12:38 12:38 21:18 WBC 12.0 H Hct 46.3 H Neutrophils # 11.0 H Lymphocytes # 0.4 L Glucose 124 H POC Glucose (mg/dL) 140 H TSH 09/14/18 09/14/18 09/14/18 06:59 09:22 11:39 WBC Hct Neutrophils # Lymphocytes # Glucose POC Glucose (mg/dL) 129 H 123 H TSH 0.161 L - Diagnostic Findings Chest x-ray: report reviewed, image reviewed Assessment and Plan Plan: Assessment: #1. Acute exacerbation of COPD complicated by a purulent tracheobronchitis with failure of outpatient treatment, chest x-ray did not show any acute pulmonary process, and influenza screen was negative #2. Stage III COPD, steroid dependent, on chronic suppressive therapy with oral Zithromax every other day #3. Tachycardia, troponins have been negative, proBNP is within normal limits, cardiogram showed preserved left ventricular systolic function with an EF between 55-60%, no aortic stenosis or regurgitation, mild mitral regurgitation, no evidence of pulmonary hypertension #4. Former smoker, currently in remission, quit smoking 10 years ago, carries [id number] smoking history #5. Glaucoma Plan: Continue nebulized bronchodilators, IV steroids, Pulmicort, Perforomist, we'll add Zithromax. Try to obtain a sputum culture, and is not producing much sputum. We will add Mucinex. Fever or chills, chest pain, no hemoptysis, chest x-ray has been reviewed with Dr. Overton, did not show any acute pulmonary process. Echo results have been reviewed. Tachycardia has improved, no complaints of chest pain. Troponins are negative. Continue to follow and make further recommendations I performed a history & physical examination of the patient and discussed their management with my nurse practitioner, Tracey Vicente. I reviewed the nurse practitioner's note and agree with the documented findings and plan of care. Lung sounds are positive for diffuse wheezes throughout the lung sterling. The findings and the impression was discussed with the patient. I attest to the documentation by the nurse practitioner. Time with Patient: Greater than 30
[2018-09-14 12:55] LABS: T4, Free (Free Thyroxine) 1.17 ng/dL (0.78-2.19)
[2018-09-14] MEDS ORDERED: AZITHROMYCIN 500 MG TAB PO SCH (13:00)
--- NOTE | 2018-09-14 13:41 | P.CRDCN ---
History of Present Illness History of present illness: This is a pleasant 68-year-old female past medical history significant for COPD and former nicotine dependence. She denies history of coronary artery disease, hypertension, dyslipidemia or diabetes mellitus. 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 She states she has seen Dr. Miles in the past and undergone a stress test which she states was normal. We have been asked to see her in consultation for symptoms of chest discomfort. She is currently admitted into the hospital being treated for an acute exacerbation of COPD. She complains of persistent cough and congestion for the previous 2 weeks. She states she has seen her primary care physician and was given antibiotics and steroids however she did not have much if any improvement. Upon arrival to the hospital blood pressure was 180/88 heart rate was 122. EKG reveals sinus tachycardia with a heart rate of 112. She has been consistently tachycardic since admission with rates 110-124. She also complains of a pleuritic type chest discomfort worse with deep inspiration or when she coughs. The pain is in the midsternal region and radiates both sides of her chest. There is no radiation down the arm, through to the back, into the neck or jaw. She does complain of shortness of breath with exertion however denies any symptoms of palpitations or dizziness. Chest x-ray on admission is negative for acute cardiopulmonary process. Laboratory data reviewed, WBC 12.0, hemoglobin 14.7, platelets 306, d-dimer 0.54, sodium 137, potassium 4.7, creatinine 0.72, magnesium 2.0, cardiac enzymes negative 2, and T proBNP 100, TSH 0.161 with a free T4 of 1.17. She currently takes no cardiac medications. At the time of my exam: CONSTITUTIONAL: Denies fever. Denies chills. EYES: Denies blurred vision. Denies vision changes. Denies eye pain. EARS, NOSE, MOUTH & THROAT: Denies headache. Denies sore throat. Denies ear pain. CARDIOVASCULAR: Complains of pleuritic chest pain. Complains of shortness of breath. Denies orthopnea. Denies PND. Denies palpitations. RESPIRATORY: Complains of cough. GASTROINTESTINAL: Denies abdominal pain. Denies diarrhea. Denies constipation. Denies nausea. Denies vomiting. MUSCULOSKELETAL: Denies myalgias. INTEGUMENTARY: Denies pruitis. Denies rash. NEUROLOGIC: Denies numbness. Denies tingling. Denies weakness. PSYCHIATRIC: Denies anxiety. Denies depression. ENDOCRINE: Denies fatigue. Denies weight change. Denies polydipsia. Denies polyurina. GENITOURINARY: Denies burning, hematuria or urgency with micturation. HEMATOLOGIC: Denies history of anemia. Denies bleeding. Blood pressure 170/79 heart rate 111 afebrile maintaining oxygen saturation on nasal cannula GENERAL: This is a 68-year-old female in no apparent distress at the time of my examination. HEENT: Head is atraumatic, normocephalic. Pupils are equal, round. Sclerae anicteric. Conjunctivae are clear. Mucous membranes of the mouth are moist. Neck is supple. There is no jugular venous distention. No carotid bruit is heard. LUNGS: Clear to auscultation no wheezes, rales or rhonchi. No chest wall tenderness is noted on palpation or with deep breathing. HEART: Regular rate and rhythm without murmurs, rubs or gallops. S1 and S2 heard. ABDOMEN: Soft, nontender. Bowel sounds are heard. No organomegaly noted. EXTREMITIES: No evidence of peripheral edema and no calf tenderness noted. VASCULAR: Radial and dorsalis pedis pulses palpated, no evidence of clubbing. NEUROLOGIC: Patient is awake, alert and oriented x3. ASSESSMENT Sinus tachycardia secondary to steroids and inhalers as well as infectious process. Acute exacerbation of COPD Pleuritic chest pain, atypical for angina. An acute coronary event has been ruled out. PLAN Echocardiogram has been obtained and reviewed and reveals normal LV systolic function. Thyroid studies have been requested and reviewed as well. Due to her hypertension and tachycardia we will start on metoprolol 25 mg twice a day. Ongoing medical management of acute exacerbation of COPD. Thank you kindly for this consultation. Nurse Practitioner note has been reviewed, I agree with a documented findings and plan of care. Patient was seen and examined. Past Medical History Past Medical History: COPD, Eye Disorder Additional Past Medical History / Comment(s): Bronchitis, bilateral eyes with increased intraocular pressure-not glaucoma yet, neuralgia R side forhead in past. History of Any Multi-Drug Resistant Organisms: None Reported Past Surgical History: Breast Surgery, Hernia Repair, Orthopedic Surgery Additional Past Surgical History / Comment(s): Bilateral carpal tunnel; bilateral cataract removal with lens, bronchoscopy, R inguinal hernia repair, colonoscopy, benign L breast biopsy. Past Anesthesia/Blood Transfusion Reactions: No Reported Reaction Past Psychological History: No Psychological Hx Reported Additional Psychological History / Comment(s): Pt resides alone in a ground floor apartment with 7 steps to get in. She works at [employer]. She drives. She has a nebulizer. Smoking Status: Former smoker Past Alcohol Use History: None Reported Additional Past Alcohol Use History / Comment(s): Pt started smoking in 1978 and quit in 2009. Past Drug Use History: None Reported - Past Family History Father Family Medical History: COPD Additional Family Medical History / Comment(s): Father in his 50s of COPD. He was a smoker. Mother Family Medical History: CVA/TIA, Hypertension, Pneumonia Additional Family Medical History / Comment(s): Mother fell at age 85 and frac tured her hip. Post op she became HTN and had a stroke and then ended up with pneumonia and . Medications and Allergies Home Medications Medication Instructions Recorded Confirmed Type Azithromycin [Zithromax] 250 mg PO MOWEFR 10/13/17 09/13/18 History Bimatoprost [Lumigan .01% Ophth 1 drop BOTH EYES HS 10/13/17 09/13/18 History Soln] Mometasone/Formoterol [Dulera 200 2 puff INHALATION RT-BID 10/13/17 09/13/18 History Mcg/5 Mcg Inhaler] Tiotropium [place] [Spiriva] 1 cap INHALATION RT-DAILY 10/13/17 09/13/18 History Benzonatate [Tessalon Perles] 200 mg PO TID PRN 09/13/18 09/13/18 History Ibuprofen [Motrin Ib] 200 mg PO Q4H PRN 09/13/18 09/13/18 History predniSONE 5 mg PO Q48H 09/13/18 09/13/18 History predniSONE See Taper PO DIRECTED 09/13/18 09/13/18 History Allergies Allergy/AdvReac Type Severity Reaction Status Date / Time budesonide [From Symbicort] AdvReac ANXIETY Verified 09/13/18 12:39 formoterol [From Symbicort] AdvReac ANXIETY Verified 09/13/18 12:39 Physical Exam Vitals: Vital Signs Temp Pulse Pulse Pulse Resp BP BP 09/14/18 08:00 111 H 22 09/14/18 07:50 108 H 09/14/18 07:41 104 H 09/14/18 07:40 104 H 09/14/18 07:30 104 H 09/14/18 06:58 98.1 F 111 H 22 151/83 09/14/18 03:25 118 H 16 09/14/18 03:13 115 H 18 09/14/18 01:10 98.2 F 111 H 19 164/77 09/13/18 23:39 111 H 09/13/18 23:29 111 H 09/13/18 20:04 100 09/13/18 19:56 100 09/13/18 19:05 98.3 F 112 H 18 155/66 09/13/18 16:41 97.5 F L 116 H 22 149/78 09/13/18 16:16 120 H 09/13/18 16:00 121 H 22 09/13/18 15:56 110 H 09/13/18 15:53 97.9 F 121 H 20 166/75 09/13/18 14:32 112 H 20 142/84 09/13/18 13:57 97.7 F 124 H 22 151/76 09/13/18 13:08 122 H 09/13/18 12:53 111 H 111 H 28 H 157/83 09/13/18 12:45 117 H 09/13/18 12:26 112 H 09/13/18 12:01 98.4 F 122 H 24 180/88 BP Pulse Ox 09/14/18 08:00 09/14/18 07:50 09/14/18 07:41 09/14/18 07:40 09/14/18 07:30 09/14/18 06:58 178/79 94 L 09/14/18 03:25 09/14/18 03:13 09/14/18 01:10 96 09/13/18 23:39 09/13/18 23:29 09/13/18 20:04 09/13/18 19:56 09/13/18 19:05 92 L 09/13/18 16:41 95 09/13/18 16:16 09/13/18 16:00 09/13/18 15:56 09/13/18 15:53 93 L 09/13/18 14:32 96 09/13/18 13:57 96 09/13/18 13:08 09/13/18 12:53 98 09/13/18 12:45 09/13/18 12:26 09/13/18 12:01 94 L Intake and Output 09/13/18 09/14/18 09/14/18 22:59 06:59 14:59 Intake Total 200 Balance 200 Intake: Oral 200 Other: # Voids 3 1 Results 09/13/18 12:38 09/13/18 12:38 Cardiac Enzymes 09/13/18 09/13/18 Range/Units 12:38 12:38 AST 21 (14-36) U/L Troponin I <0.012 (0.000-0.034) ng/mL Coagulation 09/13/18 Range/Units 12:38 PT 9.9 (9.0-12.0) sec APTT 22.9 (22.0-30.0) sec CBC 09/13/18 Range/Units 12:38 WBC 12.0 H (3.8-10.6) k/uL RBC 5.11 (3.80-5.40) m/uL Hgb 14.7 (11.4-16.0) gm/dL Hct 46.3 H (34.0-46.0) % Plt Count 306 (150-450) k/uL Comprehensive Metabolic Panel 09/13/18 Range/Units 12:38 Sodium 137 (137-145) mmol/L Potassium 4.7 (3.5-5.1) mmol/L Chloride 101 (98-107) mmol/L Carbon Dioxide 25 (22-30) mmol/L BUN 12 (7-17) mg/dL Creatinine 0.72 (0.52-1.04) mg/dL Glucose 124 H (74-99) mg/dL Calcium 10.0 (8.4-10.2) mg/dL AST 21 (14-36) U/L ALT 24 (9-52) U/L Alkaline Phosphatase 76 (38-126) U/L Total Protein 7.1 (6.3-8.2) g/dL Albumin 4.4 (3.5-5.0) g/dL Current Medications Generic Name Dose Route Start Last Admin Trade Name Freq PRN Reason Stop Dose Admin Acetaminophen 650 mg 09/13/18 20:35 09/14/18 08:08 Tylenol Tab PO 650 mg Q6HR PRN Administration Fever and/ or Pain Albuterol/Ipratropium 3 ml 09/13/18 15:42 Duoneb 0.5 Mg-3 Mg/3 Ml Soln INHALATION RT-Q4H PRN Shortness Of Breath Or Wheezing Albuterol/Ipratropium 3 ml 09/14/18 00:00 09/14/18 07:30 Duoneb 0.5 Mg-3 Mg/3 Ml Soln INHALATION 3 ml RT-Q4H ASH Administration Alprazolam 0.25 mg 09/13/18 21:51 Xanax PO Q6HR PRN Anxiety Budesonide 1 mg 09/13/18 21:31 09/14/18 07:30 Pulmicort INHALATION 1 mg RT-BID [facility] Administration Calcium Carbonate/Glycine 1,000 mg 09/13/18 21:51 Tums PO Q4HR PRN Dyspepsia Carvedilol 6.25 mg 09/14/18 09:30 Coreg PO BID-W/MEALS [facility] Enoxaparin Sodium 40 mg 09/13/18 21:45 09/14/18 08:08 Lovenox SQ 40 mg DAILY [facility] Administration Formoterol Fumarate 20 mcg 09/13/18 21:53 09/14/18 07:30 Perforomist INHALATION 20 mcg RT-BID [facility] Administration Sodium Chloride 1,000 mls @ 75 mls/hr 09/13/18 15:45 09/14/18 05:07 Saline 0.9% IV Not Given .[id number] [facility] Insulin Aspart 0 unit 09/13/18 21:00 09/14/18 08:10 Novolog SQ Not Given ACHS [facility] Protocol Lactulose 20 gm 09/13/18 21:51 Cephulac PO DAILY PRN Constipation Latanoprost 1 drops 09/13/18 21:00 09/13/18 20:45 Xalatan 0.005% BOTH EYES 1 drops HS [facility] Administration Magnesium Hydroxide 2,400 mg 09/13/18 21:51 Milk Of Magnesia PO DAILY PRN Constipation Melatonin 3 mg 09/13/18 21:51 Melatonin PO HS PRN Insomnia Methylprednisolone Sodium Succinate 60 mg 09/13/18 18:00 09/14/18 05:35 Solu-Medrol IV 60 mg Q6HR [facility] Administration Naloxone HCl 0.2 mg 09/13/18 21:51 Narcan IV Q2M PRN Opioid Reversal Ondansetron HCl 4 mg 09/13/18 21:51 Zofran IVP Q8HR PRN Nausea And Vomiting Intake and Output 09/13/18 09/14/18 09/14/18 22:59 06:59 14:59 Intake Total 200 Balance 200 Intake: Oral 200 Other: # Voids 3 1 09/13/18 12:38 09/13/18 12:38
[2018-09-14] MEDS: guaiFENesin 600 MG TABLET.ER PO SCH ×2 (14:43→20:57)
[2018-09-14 16:59] LABS: Glucose,Whole Blood 112 mg/dL (75-99)
[2018-09-14 19:17] LABS: Glucose,Whole Blood 127 mg/dL (75-99)
[2018-09-14] MEDS: METOPROLOL TARTRATE 25 MG TAB PO SCH (20:56)
[2018-09-14] MEDS: LATANOPROST 0.005% OPHTH DROPS 2.5 ML BTL BOTH EYES SCH (20:56)
--- NOTE | 2018-09-14 22:15 | PN ---
PROGRESS NOTE DATE OF SERVICE: September 14, 2018. PRESENTING COMPLAINT: Short of breath. INTERVAL HISTORY: Patient admitted with severe COPD exacerbation, acute tracheobronchitis. Still quite a bit short of breath, slight cough, not able to bring up anything. Sitting up. Did tolerate some diet. REVIEW OF SYSTEMS: Done for constitutional, cardiovascular, GI, pulmonary; relevant findings as above. CURRENT MEDICATIONS: Reviewed that include DuoNeb, IV Solu-Medrol. PHYSICAL EXAMINATION: Temperature 97.8. Pulse 92, respiratory 18, blood pressure 165/79, pulse ox 95 percent on 2 L. GENERAL APPEARANCE: Sitting up in a chair, short of breath. EYES: Pupils equal. Conjunctivae normal. NECK: JVD not raised. Mass not palpable. RESPIRATORY: Effort increased. Not able to speak in full sentences. LUNGS: Diminished breath sounds. Prolonged expiration. Some splinting. CARDIOVASCULAR: 1st and 2nd heart sounds normal. No edema. ABDOMEN: Soft, nontender. Liver and spleen not palpable. PSYCHIATRY: Alert and oriented times three. Mood slightly anxious-appearing. INVESTIGATIONS: TSH 0.161, free T3 2.5. Influenza A and B negative. ASSESSMENT: 1. Acute severe chronic obstructive pulmonary disease exacerbation, having failed outpatient treatment, slow to respond. 2. Possible viral bronchitis. 3. Sick euthyroid syndrome. No clinical evidence of thyroid dysfunction. 4. Hyperglycemia secondary to steroids. Sugars of 140. PLAN: To continue with bronchodilators, antibiotic, steroids. Care was discussed with the patient. Follow. Additionally patient's 2D echocardiogram was unremarkable. MMODL / IJN: [id number] /
[2018-09-15] MEDS: methylPREDNISolone SOD SUCCI 125 MG/2 ML VIAL IV SCH ×4 (05:05→23:40)
[2018-09-15] MEDS: IPRATROPIUM-ALBUTEROL 3 ML NEB INHALATION SCH ×5 (05:56→20:26)
[2018-09-15] MEDS: FORMOTEROL FUMARATE 20 MCG/2 ML NEBU INHALATION SCH ×2 (07:20→20:25)
[2018-09-15] MEDS: BUDESONIDE 1 MG/2 ML NEBU INHALATION SCH ×2 (07:20→20:25)
[2018-09-15 07:22] LABS: Glucose,Whole Blood 120 mg/dL (75-99)
[2018-09-15] MEDS: INSULIN ASPART (NovoLOG) 100 UNIT/ML VIAL SQ SCH ×4 (07:24→21:08)
[2018-09-15] MEDS: SODIUM CHLORIDE 0.9% 1,000 ML IV SCH ×2 (09:00→23:48)
--- NOTE | 2018-09-15 09:16 | XR ---
EXAMINATION TYPE: XR chest 2V DATE OF EXAM: 09/15/2018 COMPARISON: 09/13/2018 HISTORY: Shortness of breath TECHNIQUE: Frontal and lateral views of the chest are obtained. FINDINGS: Scattered senescent parenchymal changes noted. Hyperinflation compatible with COPD. No evidence for infiltrate. No evidence for atelectasis. Heart size is stable. Mediastinal structures are stable and grossly unremarkable. No evidence for hilar prominence. Degenerative changes dorsal spine. IMPRESSION: 1. No evidence for acute pulmonary disease.
[2018-09-15] MEDS: ENOXAPARIN 40 MG/0.4 ML SYRINGE SQ SCH (09:53)
[2018-09-15] MEDS: METOPROLOL TARTRATE 25 MG TAB PO SCH ×2 (09:53→21:07)
[2018-09-15] MEDS: guaiFENesin 600 MG TABLET.ER PO SCH ×2 (09:53→21:07)
[2018-09-15 11:37] LABS: Glucose,Whole Blood 112 mg/dL (75-99)
--- NOTE | 2018-09-15 12:28 | P.PN ---
Subjective Progress Note Date: 09/15/18 Principal diagnosis: Acute exacerbation of COPD completed by purulent tracheal bronchitis and failure of outpatient treatment This is a 68-year-old white female patient of Dr. Kimberlee garrido's Dr. 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 Patient presented to the emergency department on 09/13/2018 for evaluation of worsening dyspnea, cough and congestion, but the outpatient tr eatment, patient was seen in the pulmonary clinic on 09/02/2018 complaints of coughing, wheezing, shortness of breath. Is producing some thick yellow phlegm at that time, was negative for any fever or chills, hemoptysis or chest pain. Chest x-ray showed no evidence of infiltrates. Patient was treated with the Depo-Medrol 80 mg IM, placed on prednisone taper over 15 days, and oral Levaquin for 10 days. Patient completed the course of treatment, however she did not significantly improve, she went to the urgent care clinic 2 days ago, was treated with another prednisone taper and was given IM dose of steroids and was given some cough medication, but because of persistence of her symptoms she went to the emergency department for further evaluation and treatment. Chest x-ray showed no acute pulmonary process. Denied any fever or chills, influenza screen was negative, patient denies smoking. He quit smoking 10 years ago, does carry [id number] smoking history prior to that. She works at [employer] and could have been exposed to someone sick. White blood cell, is 12.0, hemoglobin is 14.7, d- dimer, coagulation profile were within normal limits, electrolytes and renal profile lactic acid were normal, troponins were negative 2, proBNP is within normal limits at 100, patient was tachycardic, but afebrile, she was given some IV fluids, she was placed on IV steroids, was given a dose of IV Zithromax in the emergency department and admitted for further management. On 09/15/2018 patient seen in follow-up in the medical surgical floor. She still states she is short of breath, coughing quite a bit, however she is not able to bring up any phlegm. She states her condition has really not gotten better since she came in, he is on Zithromax, nebulized bronchodilators, Pulmicort, Perforomist, IV steroids. Repeat chest x-ray has been obtained today, reviewed with Dr. Overton, and showed no evidence of acute pulmonary disease, he has been afebrile, hemodynamically stable. Left-sided chest wall discomfort has subsided. Lung sounds are positive for diminished breath sounds on the left base, with the scattered expiratory wheezing and some basilar crackles. Objective - Vital Signs Vital signs: Vital Signs Temp 98.0 F 09/15/18 07:00 Pulse 77 09/15/18 11:26 Resp 18 09/15/18 07:00 BP 166/81 09/15/18 07:00 Pulse Ox 94 L 09/15/18 07:00 Intake & Output 09/14/18 09/15/18 09/15/18 18:59 06:59 18:59 Intake Total 225 Balance 225 Weight 58.513 kg Intake: Intake, IV Titration 225 Amount Sodium Chloride 0.9% 1, 225 000 ml @ 75 mls/hr IV . [id number] [facility] Rx#:[id number] Other: # Voids 2 - Exam GENERAL EXAM: Alert, pleasant, 68-year-old white female, comfortable in no apparent distress. HEAD: Normocephalic/atraumatic. EYES: Normal reaction of pupils, equal size. Conjunctiva pink, sclera white. NOSE: Clear with pink turbinates. THROAT: No erythema or exudates. NECK: No masses, no JVD, no thyroid enlargement, no adenopathy. CHEST: No chest wall deformity. Symmetrical expansion. LUNGS: Equal air entry with dementia breath sounds, and expiratory wheezing CVS: Regular rate and rhythm, normal S1 and S2, no gallops, no murmurs, no rubs ABDOMEN: Soft, nontender. No hepatosplenomegaly, normal bowel sounds, no guarding or rigidity. EXTREMITIES: No clubbing, no edema, no cyanosis, 2+ pulses and upper and lower extremities. MUSCULOSKELETAL: Muscle strength and tone normal. SPINE: No scoliosis or deformity SKIN: No rashes CENTRAL NERVOUS SYSTEM: Alert and oriented -3. No focal deficits, tone is normal in all 4 extremities. PSYCHIATRIC: Alert and oriented -3. Appropriate affect. Intact judgment and insight. - Labs CBC & Chem 7: 09/13/18 12:38 04/16/19 12:38 Labs: Abnormal Lab Results - Last 24 Hours (Table) 09/14/18 09/14/18 09/14/18 Range/Units 09:22 16:45 19:06 POC Glucose (mg/dL) 112 H 127 H (75-99) mg/dL Free T3 pg/mL 2.5 L (2.8-5.3) pg/ml 09/15/18 09/15/18 Range/Units 07:20 11:34 POC Glucose (mg/dL) 120 H 112 H (75-99) mg/dL Free T3 pg/mL (2.8-5.3) pg/ml Microbiology - Last 24 Hours (Table) 09/13/18 12:38 Blood Culture - Preliminary Blood No Growth after 24 hours Assessment and Plan Plan: Assessment: #1. Acute exacerbation of COPD complicated by a purulent tracheobronchitis with failure of outpatient treatment, chest x-ray did not show any acute pulmonary process, and influenza screen was negative #2. Stage III COPD, steroid dependent, on chronic suppressive therapy with oral Zithromax every other day #3. Tachycardia, troponins have been negative, proBNP is within normal limits, cardiogram showed preserved left ventricular systolic function with an EF between 55-60%, no aortic stenosis or regurgitation, mild mitral regurgitation, no evidence of pulmonary hypertension #4. Former smoker, currently in remission, quit smoking 10 years ago, carries 2 5-pack-year smoking history #5. Glaucoma Plan: Repeat chest x-ray has been obtained, and reviewed, showed no acute pulmonary process, patient states she has not significantly improved, still quite dyspneic, coughing quite a bit, not bringing up any phlegm, we will switch to antibiotic coverage to Zosyn and Levaquin. Continue same dose IV steroids, nebulized bronchodilators, will continue to follow. I performed a history & physical examination of the patient and discussed their management with my nurse practitioner, Tracey Vicente. I reviewed the nurse practitioner's note and agree with the documented findings and plan of care. Lung sounds are positive for diffuse wheezes throughout the lung sterling. The findings and the impression was discussed with the patient. I attest to the do cumentation by the nurse practitioner. Time with Patient: Less than 30
[2018-09-15] MEDS ORDERED: LEVOFLOXACIN 500MG-D5W PMX 500 MG in DEXTROSE/WATER 1 100ML.BAG IVPB SCH (13:00)
[2018-09-15] MEDS: PIPERACILLIN-TAZOBACTAM 3.375 GM in SODIUM CHLORIDE 0.9% 100 ML IVPB SCH ×2 (15:02→23:29)
[2018-09-15 17:03] LABS: Glucose,Whole Blood 105 mg/dL (75-99)
[2018-09-15] MEDS: ACETAMINOPHEN TAB 325 MG TAB PO PRN (18:21)
[2018-09-15 20:30] LABS: Glucose,Whole Blood 126 mg/dL (75-99)
--- NOTE | 2018-09-15 20:56 | PN ---
PROGRESS NOTE DATE OF SERVICE: Short of breath. INTERVAL HISTORY: Patient admitted with severe COPD exacerbation, acute tracheobronchitis, still remains short of breath, cough. Did tolerate some diet. Tired. Sitting up. REVIEW OF SYSTEMS: Done for constitutional, cardiovascular, GI, pulmonary and relevant findings as above. CURRENT MEDICATIONS: Reviewed that include DuoNeb, Levaquin, IV Solu-Medrol, IV Zosyn. PHYSICAL EXAMINATION: VITAL SIGNS: Temperature 98.1, pulse 72, respiration 26, blood pressure 155/79, pulse ox 96% on 2 L. GENERAL APPEARANCE: Sitting up in a chair. EYES: Pupils equal. Conjunctivae normal. NECK: JVD not raised. Mass not palpable. RESPIRATORY: Effort increased. LUNGS: Decreased breath sounds. Prolonged expiration. CARDIOVASCULAR: 1st and 2nd sounds normal. No edema. ABDOMEN: Soft, nontender. Liver and spleen not palpable. PSYCHIATRY: Alert and oriented times three. Mood and affect normal. INVESTIGATIONS: TSH 0.161 and free T3 is low at 2.5. ASSESSMENT: 1. Acute severe chronic obstructive pulmonary disease exacerbation, having failed outpatient treatment, slow to respond. 2. Possible viral bronchitis. 3. Sick euthyroid syndrome. No clinical evidence of thyroid dysfunction. 4. Hyperglycemia secondary to steroids. PLAN: Continue patient on bronchodilators, IV Zosyn, IV Solu-Medrol, IV Levaquin. Follow with Pulmonary. MMODL / IJN: [id number] /
[2018-09-15] MEDS: LATANOPROST 0.005% OPHTH DROPS 2.5 ML BTL BOTH EYES SCH (21:07)
[2018-09-15] MEDS: MELATONIN 3 MG TABLET PO PRN (23:32)
[2018-09-16] MEDS: IPRATROPIUM-ALBUTEROL 3 ML NEB INHALATION SCH ×6 (00:01→19:34)
[2018-09-16] MEDS: methylPREDNISolone SOD SUCCI 125 MG/2 ML VIAL IV SCH ×3 (05:25→17:26)
[2018-09-16] MEDS ORDERED: DEXAMETHASONE SOD PHOSPHATE 10 MG/ML 1 ML VIAL IV ONE (07:00)
[2018-09-16] MEDS ORDERED: MORPHINE SULFATE 2 MG/ML SYRINGE IV PRN (07:00)
[2018-09-16] MEDS ORDERED: HYDROmorphone 0.5 MG/0.5 ML SYRINGE IVP PRN (07:00)
[2018-09-16] MEDS ORDERED: ONDANSETRON 4 MG/2 ML VIAL IVP ONE (07:00)
[2018-09-16 07:01] LABS: Glucose,Whole Blood 148 mg/dL (75-99)
[2018-09-16] MEDS: FORMOTEROL FUMARATE 20 MCG/2 ML NEBU INHALATION SCH ×2 (07:29→19:44)
[2018-09-16] MEDS: BUDESONIDE 1 MG/2 ML NEBU INHALATION SCH ×2 (07:29→19:34)
[2018-09-16] MEDS: PIPERACILLIN-TAZOBACTAM 3.375 GM in SODIUM CHLORIDE 0.9% 100 ML IVPB SCH ×3 (07:37→23:24)
[2018-09-16] MEDS: INSULIN ASPART (NovoLOG) 100 UNIT/ML VIAL SQ SCH ×4 (07:39→20:32)
[2018-09-16] MEDS: LACTATED RINGERS 1,000 ML IV SCH (07:40)
[2018-09-16] MEDS: guaiFENesin 600 MG TABLET.ER PO SCH ×2 (07:56→20:32)
[2018-09-16] MEDS: ENOXAPARIN 40 MG/0.4 ML SYRINGE SQ SCH (09:05)
[2018-09-16] MEDS: METOPROLOL TARTRATE 25 MG TAB PO SCH ×2 (09:05→20:31)
[2018-09-16] MEDS ORDERED: KETAMINE 10 MG/ML 20 ML VIAL ONE (11:32)
[2018-09-16] MEDS ORDERED: PROPOFOL 10 MG/ML 20 ML VIAL IV ONE (11:32)
[2018-09-16] MEDS ORDERED: MIDAZOLAM 2 MG/2 ML VIAL ONE (11:32)
[2018-09-16] MEDS ORDERED: IV FLUID CONTINUATION 1,000 ML IV ONE (11:35)
[2018-09-16] MEDS ORDERED: LIDOCAINE 2% INJ 20 MG/ML INTRATRACH ONE (11:57)
[2018-09-16] MEDS ORDERED: LACTATED RINGERS 1,000 ML IV ONE (11:59)
[2018-09-16] MEDS: SODIUM CHLORIDE 0.9% 1,000 ML IV SCH (13:01)
[2018-09-16 13:12] LABS: Glucose,Whole Blood 119 mg/dL (75-99)
[2018-09-16] MEDS: ACETAMINOPHEN TAB 325 MG TAB PO PRN (13:16)
[2018-09-16 16:44] LABS: Glucose,Whole Blood 131 mg/dL (75-99)
--- NOTE | 2018-09-16 17:14 | P.PN ---
Subjective Progress Note Date: 09/16/18 Principal diagnosis: Acute exacerbation of COPD completed by purulent tracheal bronchitis and failure of outpatient treatment This is a 68-year-old white female patient of Dr. Kimberlee garrido's Dr. 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 Patient presented to the emergency department on 09/13/2018 for evaluation of worsening dyspnea, cough and congestion, but the outpatient tr eatment, patient was seen in the pulmonary clinic on 09/02/2018 complaints of coughing, wheezing, shortness of breath. Is producing some thick yellow phlegm at that time, was negative for any fever or chills, hemoptysis or chest pain. Chest x-ray showed no evidence of infiltrates. Patient was treated with the Depo-Medrol 80 mg IM, placed on prednisone taper over 15 days, and oral Levaquin for 10 days. Patient completed the course of treatment, however she did not significantly improve, she went to the urgent care clinic 2 days ago, was treated with another prednisone taper and was given IM dose of steroids and was given some cough medication, but because of persistence of her symptoms she went to the emergency department for further evaluation and treatment. Chest x-ray showed no acute pulmonary process. Denied any fever or chills, influenza screen was negative, patient denies smoking. He quit smoking 10 years ago, does carry [id number] smoking history prior to that. She works at [employer] and could have been exposed to someone sick. White blood cell, is 12.0, hemoglobin is 14.7, d- dimer, coagulation profile were within normal limits, electrolytes and renal profile lactic acid were normal, troponins were negative 2, proBNP is within normal limits at 100, patient was tachycardic, but afebrile, she was given some IV fluids, she was placed on IV steroids, was given a dose of IV Zithromax in the emergency department and admitted for further management. On 09/15/2018 patient seen in follow-up in the medical surgical floor. She still states she is short of breath, coughing quite a bit, however she is not able to bring up any phlegm. She states her condition has really not gotten better since she came in, he is on Zithromax, nebulized bronchodilators, Pulmicort, Perforomist, IV steroids. Repeat chest x-ray has been obtained today, reviewed with Dr. Overton, and showed no evidence of acute pulmonary disease, he has been afebrile, hemodynamically stable. Left-sided chest wall discomfort has subsided. Lung sounds are positive for diminished breath sounds on the left base, with the scattered expiratory wheezing and some basilar crackles. On 09/16/2018 patient seen in follow-up on medical surgical floor, still quite dyspneic, wheezy, congested, not bringing up much sputum, patient is scheduled for bronchoscopy with BAL with Dr. Overton today, yesterday we switched antibiotic coverage to Zosyn and Levaquin, and has been unable to produce sputum for culture, blood culture showed no growth. No new labs a chest x-rays, will continue the steroids, nebulized bronchodilators. Objective - Vital Signs Vital signs: Vital Signs Temp 98.1 F 09/16/18 13:30 Pulse 90 09/16/18 16:14 Resp 16 09/16/18 13:30 BP 149/74 09/16/18 14:00 Pulse Ox 96 09/16/18 14:00 Intake & Output 09/15/18 09/16/18 09/16/18 18:59 06:59 18:59 Intake Total 1480 250 Balance 1480 250 Weight 58.513 kg Intake: IV 250 Intake, IV Titration 800 Amount Levofloxacin 500Mg-D5w 100 Pmx 500 mg In Dextrose/ Water 1 100ml.bag @ 100 mls/hr IVPB Q24H [facility] Rx#: [id number] Piperacillin-Tazobactam 3 100 .375 gm In Sodium Chloride 0.9% 100 ml @ 25 mls/hr IVPB Q8HR [facility] Rx# :[id number] Sodium Chloride 0.9% 1, 600 000 ml @ 75 mls/hr IV . [id number] [facility] Rx#:[id number] Oral 680 Other: # Bowel Movements 0 - Exam GENERAL EXAM: Alert, pleasant, 68-year-old white female, comfortable in no apparent distress. HEAD: Normocephalic/atraumatic. EYES: Normal reaction of pupils, equal size. Conjunctiva pink, sclera white. NOSE: Clear with pink turbinates. THROAT: No erythema or exudates. NECK: No masses, no JVD, no thyroid enlargement, no adenopathy. CHEST: No chest wall deformity. Symmetrical expansion. LUNGS: Equal air entry with diffuse wheezes, rhonchi CVS: Regular rate and rhythm, normal S1 and S2, no gallops, no murmurs, no rubs ABDOMEN: Soft, nontender. No hepatosplenomegaly, normal bowel sounds, no guarding or rigidity. EXTREMITIES: No clubbing, no edema, no cyanosis, 2+ pulses and upper and lower extremities. MUSCULOSKELETAL: Muscle strength and tone normal. SPINE: No scoliosis or deformity SKIN: No rashes CENTRAL NERVOUS SYSTEM: Alert and oriented -3. No focal deficits, tone is normal in all 4 extremities. PSYCHIATRIC: Alert and oriented -3. Appropriate affect. Intact judgment and insight. - Labs CBC & Chem 7: 09/13/18 12:38 09/13/18 12:38 Labs: Abnormal Lab Results - Last 24 Hours (Table) 09/15/18 09/16/18 09/16/18 Range/Units 20:27 06:59 13:09 POC Glucose (mg/dL) 126 H 148 H 119 H (75-99) mg/dL 09/16/18 Range/Units 16:43 POC Glucose (mg/dL) 131 H (75-99) mg/dL Microbiology - Last 24 Hours (Table) 09/13/18 12:38 Blood Culture - Preliminary Blood No Growth after 72 hours Assessment and Plan Plan: Assessment: #1. Acute exacerbation of COPD complicated by a purulent tracheobronchitis with failure of outpatient treatment, chest x-ray did not show any acute pulmonary process, and influenza screen was negative #2. Stage III COPD, steroid dependent, on chronic suppressive therapy with oral Zithromax every other day #3. Tachycardia, troponins have been negative, proBNP is within normal limits, cardiogram showed preserved left ventricular systolic function with an EF between 55-60%, no aortic stenosis or regurgitation, mild mitral regurgitation, no evidence of pulmonary hypertension #4. Former smoker, currently in remission, quit smoking 10 years ago, carries [id number] smoking history #5. Glaucoma Plan: Continue with current antibiotics, will await the results of the bronchial wash cultures. Patient underwent bronchoscopy with BAL today, large amount of retained secretions was removed. Following the procedure patient seen in the room unit, and she is already feeling significant improvement with shortness of breath, congestion and wheezing. Anticipate accelerated recovery, continue with IV steroids, bronchodilators. Continue to follow. I performed a history & physical examination of the patient and discussed their management with my nurse practitioner, Tracey Vicente. I reviewed the nurse practitioner's note and agree with the documented findings and plan of care. Kanchan ng sounds are positive for diffuse wheezes throughout the lung sterling. The findings and the impression was discussed with the patient. I attest to the documentation by the nurse practitioner. Time with Patient: Less than 30
--- NOTE | 2018-09-16 19:03 | PN ---
PROGRESS NOTE PROGRESS NOTE ADDENDUM: DATE OF SERVICE: 09/15/2018 ADDENDUM: My note dictated on 09/15/2018 at 1947 should note that the correct date of service was 09/15/2018. MMODL / IJN: [id number] /
--- NOTE | 2018-09-16 19:39 | PN ---
PROGRESS NOTE DATE OF SERVICE: 09/16/2018 PRESENTING COMPLAINT: Short of breath. INTERVAL HISTORY: Patient presented with severe COPD exacerbation, acute tracheobronchitis, not improving. The patient was taken for bronchoscopy with lavage earlier today and just returned feeling somewhat better. Resting. REVIEW OF SYSTEMS: Done for constitutional, cardiovascular, GI, pulmonary; relevant findings as above. CURRENT MEDICATIONS: Reviewed. They include DuoNeb, Solu-Medrol, IV Zosyn. PHYSICAL EXAMINATION: Temperature 98.1, pulse 82, respiration 16, blood pressure 177/86, pulse ox 97% on 2 L. GENERAL APPEARANCE: Sitting up, awake. EYES: Pupils equal. Conjunctivae normal. NECK: JVD not raised. Mass not palpable. RESPIRATORY: Effort increased. LUNGS: Decreased breath sounds. Prolonged expiration. CARDIOVASCULAR: First and second sounds normal. No edema. ABDOMEN: Soft, non-tender. Liver and spleen not palpable. PSYCHIATRY: Alert and oriented x3. Mood and affect normal. Status post bronchoscopy. INVESTIGATIONS: Accu-Cheks are noted. ASSESSMENT: 1. Acute severe chronic obstructive pulmonary disease exacerbation, having failed outpatient treatment, not improving, status post bronchoalveolar lavage. 2. Acute thyroid syndrome. No clinical evidence of thyroid dysfunction. 3. Hyperglycemia secondary to steroids. PLAN: Await formal report of the bronchoscopy. Continue with IV Solu-Medrol. Dose will be cut back. Antibiotics to continue. MMODL / IJN: [id number] /
--- NOTE | 2018-09-16 20:03 | OP ---
OPERATIVE REPORT OPERATIVE PROCEDURE: Bronchoscopy, random bronchial washings and random bronchoalveolar lavage of both lungs/multiple lobes. PREOPERATIVE DIAGNOSIS: Severe purulent tracheobronchitis and chronic obstructive pulmonary disease exacerbation, difficulty clearing secretions. POSTOPERATIVE DIAGNOSIS: Severe purulent tracheobronchitis and chronic obstructive pulmonary disease exacerbation, difficulty clearing secretions. ANESTHESIA USED: IV conscious sedation. PROCEDURE: The patient was prepared according to the bronchoscopy protocol. Oxygen was applied via Ventimask over the mouth. During the procedure the patient was monitored, and we monitored oxygen saturation continuously via pulse oximetry. Blood pressure was intermittently monitored. Cardiac rhythm was continuously monitored. After adequate IV conscious sedation, the bronchoscope was advanced through the right naris down to the area of the vocal cords. Significant purulent secretions were noted in the distance between the nares and the vocal cords. Multiple attempts were made to reach the vocal cords, but because of secretions these were suctioned until clear, and then I was able to pass the bronchoscope down all the way to the vocal cords. Lidocaine was applied over the vocal cords, and the bronchoscope was advanced further down to the trachea. Significant purulent secretions were noted to be filling most of the trachea, and these were suctioned. As I went down further, thorough examination was done of the multiple lobes, right upper lobe, right middle lobe, right lower lobe, left upper lobe lingula and left lower lobe. Again there were significant purulent secretions filling up the whole airways involving multiple lobes. Washings and lavage was done out of these multiple lobes until all purulent secretions were cleared. Minimal bleeding was noted from the mucosa, mostly from the tip of the bronchoscope, but that was very minimal and negligible. Fluid was sent for different diagnostic studies. No evidence of any immediate complications. MMODL / IJN: [id number] /
[2018-09-16 20:28] LABS: Glucose,Whole Blood 146 mg/dL (75-99)
[2018-09-16] MEDS: LATANOPROST 0.005% OPHTH DROPS 2.5 ML BTL BOTH EYES SCH (20:32)
[2018-09-16 20:57] LABS: Appearance,BF Cloudy; Color,BF Red; Nucleated Cells, Body Fluid 8520 /uL; RBC, Body Fluid 17400 /uL
[2018-09-16 20:58] LABS: Mononuclear WBC,Body Fluid 2 %; Polynuclear WBC,Body Fluid 98 %
[2018-09-16] MEDS: methylPREDNISolone SOD SUCCI 40 MG/ML 1 ML VIAL IV SCH (23:24)
[2018-09-16] MEDS: MELATONIN 3 MG TABLET PO PRN (23:26)
[2018-09-17] MEDS: SODIUM CHLORIDE 0.9% 1,000 ML IV SCH ×2 (02:45→13:23)
[2018-09-17] MEDS: IPRATROPIUM-ALBUTEROL 3 ML NEB INHALATION SCH ×3 (03:44→12:46)
[2018-09-17 07:37] LABS: Glucose,Whole Blood 122 mg/dL (75-99)
[2018-09-17 07:45] VITALS: BP 155/74; RESP 20; TEMP 97.8
[2018-09-17] MEDS: PIPERACILLIN-TAZOBACTAM 3.375 GM in SODIUM CHLORIDE 0.9% 100 ML IVPB SCH (08:08)
[2018-09-17] MEDS: INSULIN ASPART (NovoLOG) 100 UNIT/ML VIAL SQ SCH ×2 (08:09→13:22)
[2018-09-17] MEDS: LACTATED RINGERS 1,000 ML IV SCH (08:09)
[2018-09-17] MEDS: ENOXAPARIN 40 MG/0.4 ML SYRINGE SQ SCH (08:09)
[2018-09-17] MEDS: METOPROLOL TARTRATE 25 MG TAB PO SCH (08:10)
[2018-09-17] MEDS: guaiFENesin 600 MG TABLET.ER PO SCH (08:10)
[2018-09-17] MEDS: methylPREDNISolone SOD SUCCI 40 MG/ML 1 ML VIAL IV SCH (08:10)
[2018-09-17 08:31] LABS: Basophils % (A) 0 %; Eosinophils % (A) 0 %; HCT 40.5 % (34.0-46.0); Lymphocytes # (A) 0.2 k/uL (1.0-4.8); Lymphocytes % (A) 2 %; MCH 29.2 pg (25.0-35.0); Mean Platelet Volume 7.4; Monocytes # (A) 0.6 k/uL (0-1.0); Monocytes % (A) 4 %; Neutrophils # (A) 13.4 k/uL (1.3-7.7); Neutrophils % (A) 94 %; Platelet Count 279 k/uL (150-450); RBC 4.45 m/uL (3.80-5.40); RDW 14.2 % (11.5-15.5); WBC 14.3 k/uL (3.8-10.6)
[2018-09-17 08:43] LABS: Anion Gap 5 mmol/L; Blood Urea Nitrogen 21 mg/dL (7-17); Calcium 9.6 mg/dL (8.4-10.2); Carbon Dioxide 32 mmol/L (22-30); Chloride 103 mmol/L (98-107); Glucose 158 mg/dL (74-99); Potassium 4.3 mmol/L (3.5-5.1); Sodium 140 mmol/L (137-145)
[2018-09-17] MEDS: BUDESONIDE 1 MG/2 ML NEBU INHALATION SCH (09:18)
[2018-09-17] MEDS: FORMOTEROL FUMARATE 20 MCG/2 ML NEBU INHALATION SCH (09:18)
[2018-09-17] MEDS ORDERED: predniSONE 10 MG TAB PO SCH (09:45)
[2018-09-17] MEDS ORDERED: AMOXIC-POT CLAV 875-125MG 1 EACH TAB PO SCH (09:45)
[2018-09-17 12:06] LABS: Glucose,Whole Blood 95 mg/dL (75-99)
--- NOTE | 2018-09-17 12:29 | P.PN ---
Subjective Progress Note Date: 09/17/18 Principal diagnosis: Acute exacerbation of chronic obstructive pulmonary disease, complicated by purulent tracheobronchitis. Failed outpatient treatment. This is a 68-year-old white female patient of Dr. Kimberlee garrido's Dr. 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 Patient presented to the emergency department on 09/13/2018 for evaluation of worsening dyspnea, cough and congestion, but the outpatient treatment, patient was seen in the pulmonary clinic on 09/02/2018 complaints of coughing, wheezing, shortness of breath. Is producing some thick yellow phlegm at that time, was negative for any fever or chills, hemoptysis or chest pain. Chest x-ray showed no evidence of infiltrates. Patient was treated with the Depo-Medrol 80 mg IM, placed on prednisone taper over 15 days, and oral Levaquin for 10 days. Patient completed the course of treatment, however she did not significantly improve, she went to the urgent care clinic 2 days ago, was treated with another prednisone taper and was given IM dose of steroids and was given some cough medication, but because of persistence of her symptoms she went to the emergency department for further evaluation and treatment. Chest x-ray showed no acute pulmonary process. Denied any fever or chills, influenza screen was negative, patient denies smoking. He quit smoking 10 years ago, does carry [id number] smoking history prior to that. She works at [employer] and could have been exposed to someone sick. White blood cell, is 12.0, hemoglobin is 14.7, d- dimer, coagulation profile were within normal limits, electrolytes and renal profile lactic acid were normal, troponins were negative 2, proBNP is within normal limits at 100, patient was tachycardic, but afebrile, she was given some IV fluids, she was placed on IV steroids, was given a dose of IV Zithromax in the emergency department and admitted for further management. On 09/15/2018 patient seen in follow-up in the medical surgical floor. She still states she is short of breath, coughing quite a bit, however she is not able to bring up any phlegm. She states her condition has really not gotten better since she came in, he is on Zithromax, nebulized bronchodilators, Pulmicort, Perforomist, IV steroids. Repeat chest x-ray has been obtained today, reviewed with Dr. Overton, and showed no evidence of acute pulmonary disease, he has been afebrile, hemodynamically stable. Left-sided chest wall discomfort has subsided. Lung sounds are positive for diminished breath sounds on the left base, with the scattered expiratory wheezing and some basilar in house cra ckles. On 09/16/2018 patient seen in follow-up on medical surgical floor, still quite dyspneic, wheezy, congested, not bringing up much sputum, patient is scheduled for bronchoscopy with BAL with Dr. Overton today, yesterday we switched antibiotic coverage to Zosyn and Levaquin, and has been unable to produce sputum for culture, blood culture showed no growth. No new labs a chest x-rays, will continue the steroids, nebulized bronchodilators. The patient is seen today 09/17/2018 in follow-up on the regular medical floor. She is currently sitting up in a chair at the bedside. Awake and alert in no acute distress. She is breathing quite a bit better today as compared to yesterday. Less phlegm production following her bronchoscopy with BAL. Ultrasound pending. He is currently maintaining good O2 saturations in the high 90s on 2 L/m per nasal cannula. She's been afebrile. Hemodynamically stable. White count 14.3. Hemoglobin 13.0. Creatinine 0.71. She remains on DuoNeb inhalations, Augmentin, redness own taper. She is anxious to go home. Objective - Vital Signs Vital signs: Vital Signs Temp 97.8 F 09/17/18 07:00 Pulse 92 09/17/18 09:43 Resp 20 09/17/18 07:00 BP 155/74 09/17/18 07:00 Pulse Ox 99 09/17/18 07:00 Intake & Output 09/16/18 09/17/18 09/17/18 18:59 06:59 18:59 Intake Total 250 350 200 Balance 250 350 200 Weight 58.513 kg Intake: IV 250 Intake, IV Titration 350 Amount Piperacillin-Tazobactam 3 200 .375 gm In Sodium Chloride 0.9% 100 ml @ 25 mls/hr IVPB Q8HR [facility] Rx# :[id number] Sodium Chloride 0.9% 1, 150 000 ml @ 75 mls/hr IV . [id number] [facility] Rx#:[id number] Oral 200 Other: # Voids 3 # Bowel Movements 0 - Exam GENERAL EXAM: Alert, active 68-year-old female, comfortable in no apparent distress. On 2 L nasal cannula. HEAD: Normocephalic. EYES: Normal reaction of pupils, equal size. NOSE: Clear with pink turbinates. THROAT: No erythema or exudates. NECK: No masses, no JVD. CHEST: No chest wall deformity. LUNGS: Equal air entry with few scattered rhonchi, end expiratory wheeze, diminished. CVS: S1 and S2 normal with no audible murmur, regular rhythm. ABDOMEN: No hepatosplenomegaly, normal bowel sounds, no guarding or rigidity. SPINE: No scoliosis or deformity SKIN: No rashes CENTRAL NERVOUS SYSTEM: No focal deficits, tone is normal in all 4 extremities. EXTREMITIES: There is no peripheral edema. No clubbing, no cyanosis. Peripheral pulses are intact. - Labs CBC & Chem 7: 09/17/18 07:57 09/17/18 07:57 Labs: Abnormal Lab Results - Last 24 Hours (Table) 09/16/18 09/16/18 09/16/18 Range/Units 11:45 13:09 16:43 WBC (3.8-10.6) k/uL Neutrophils # (1.3-7.7) k/uL Lymphocytes # (1.0-4.8) k/uL Carbon Dioxide (22-30) mmol/L BUN (7-17) mg/dL Glucose (74-99) mg/dL POC Glucose (mg/dL) 119 H 131 H (75-99) mg/dL Viral Test See Below H 09/16/18 09/17/18 09/17/18 Range/Units 20:26 06:59 07:57 WBC 14.3 H (3.8-10.6) k/uL Neutrophils # 13.4 H (1.3-7.7) k/uL Lymphocytes # 0.2 L (1.0-4.8) k/uL Carbon Dioxide (22-30) mmol/L BUN (7-17) mg/dL Glucose (74-99) mg/dL POC Glucose (mg/dL) 146 H 122 H (75-99) mg/dL Viral Test 09/17/18 Range/Units 07:57 WBC (3.8-10.6) k/uL Neutrophils # (1.3-7.7) k/uL Lymphocytes # (1.0-4.8) k/uL Carbon Dioxide 32 H (22-30) mmol/L BUN 21 H (7-17) mg/dL Glucose 158 H (74-99) mg/dL POC Glucose (mg/dL) (75-99) mg/dL Viral Test Microbiology - Last 24 Hours (Table) 09/16/18 11:45 Acid Fast Bacilli Smear - Final Bronchoalviolar Lavage - Right Acid Fast Bacilli Culture - Preliminary 09/16/18 11:45 Gram Stain - Preliminary Bronchoalviolar Lavage - Right Bronchial Washings Culture - Preliminary 09/16/18 11:45 Fungal Culture - Preliminary Bronchoalviolar Lavage - Right 09/13/18 12:38 Blood Culture - Preliminary Blood No Growth after 72 hours Assessment and Plan Assessment: Assessment: #1. Acute exacerbation of COPD complicated by a purulent tracheobronchitis with failure of outpatient treatment, chest x-ray did not show any acute pulmonary process, and influenza screen was negative #2. Stage III COPD, steroid dependent, on chronic suppressive therapy with oral Zithromax every other day #3. Tachycardia, troponins have been negative, proBNP is within normal limits, cardiogram showed preserved left ventricular systolic function with an EF between 55-60%, no aortic stenosis or regurgitation, mild mitral regurgitation, no evidence of pulmonary hypertension #4. Former smoker, currently in remission, quit smoking 10 years ago, carries [id number] smoking history #5. Glaucoma Plan: The patient was seen and evaluated by Dr. Parker. Bronchial wash cultures pending. She is improved today as compared to yesterday. She is cleared for discharge from the pulmonary standpoint. Complete course of antibiotics in the form of Augmentin, prednisone taper, home pulmonary medications. Follow-up in our office in 1-2 weeks' time. She is encouraged call sooner with any recurrence of symptoms or other questions or concerns. I, the cosigning physician, performed a history & physical examination of the patient. Lungs sounds with some few scattered rhonchi, end expiratory wheeze, diminished Maintaining good O2 saturations in the 90s on 2 L/m per nasal cannula. I discussed the assessment and plan of care with my nurse practitioner, Francisca Madden. I attest to the above note as dictated by her.
[2018-09-17 12:59] VITALS: PULSE 88
--- NOTE | 2018-09-19 06:15 | DS ---
DISCHARGE SUMMARY DATE OF ADMISSION: 09/13/2018 DATE OF DISCHARGE: 09/17/2018 FINAL DIAGNOSES: 1. Acute severe chronic obstructive pulmonary disease exacerbation, having failed outpatient treatment. 2. Sick euthyroid syndrome. No evidence of thyroid dysfunction. 3. Hyperglycemia secondary to steroids. 4. Purulent tracheobronchitis. HOSPITAL COURSE: This patient having failed outpatient treatment with COPD exacerbation, purulent tracheobronchitis. Admitted for the same. As she was not responding adequately, lavage was carried out to which patient responded well. A 2-D echocardiogram showed EF of 55% to 60%. The patient's bronchial results are pending at the time of discharge. CONSULTATION: Dr. Parker from Pulmonary and Dr. Yamila Yancey from Cardiology. DISCHARGE MEDICATIONS: 1. Lumigan 0.01% 1 drop both eyes q.h.s. 2. Dulera 200/5 two puffs b.i.d. 3. Spiriva 1 capsule daily. 4. Prednisone taper. 5. Mucinex 1200 mg q.12. 6. Augmentin 875 one tablet q.12; ten tablets. Follow up with Dr. Mohan in 1 week. Follow up with a relay associate in one week. PHYSICAL EXAMINATION: On examination, temperature 97.8, pulse 73, respiration 20, blood pressure 155/74, pulse ox 99% on 2 L. LUNGS: Occasional crackles. Decreased wheezing. MMODL / IJN: [id number] /
== END 2018-09-17 15:51 | disposition home or self-care (01) | DRG 168 ==
LOC: EC 11:57 → 4SSUR 15:42
PROVIDERS: ADMIT Hospitalist; ATTEND Hospitalist
PROC: 0B9C8ZX Drainage of Right Upper Lung Lobe, Via Natural or Artificial Opening Endoscopic, Diagnostic (ICD-10-PCS; 2018-09-16)
PROC: 0B9G8ZX Drainage of Left Upper Lung Lobe, Via Natural or Artificial Opening Endoscopic, Diagnostic (ICD-10-PCS; 2018-09-16)
PROC: 0B9D8ZX Drainage of Right Middle Lung Lobe, Via Natural or Artificial Opening Endoscopic, Diagnostic (ICD-10-PCS; 2018-09-16)
PROC: 0B9F8ZX Drainage of Right Lower Lung Lobe, Via Natural or Artificial Opening Endoscopic, Diagnostic (ICD-10-PCS; 2018-09-16)
PROC: 0B9H8ZX Drainage of Lung Lingula, Via Natural or Artificial Opening Endoscopic, Diagnostic (ICD-10-PCS; principal; 2018-09-16 07:30)
PROC: 0B9J8ZX Drainage of Left Lower Lung Lobe, Via Natural or Artificial Opening Endoscopic, Diagnostic (ICD-10-PCS; 2018-09-16 07:30)
DX: J44.0 Chronic obstructive pulmonary disease with (acute) lower respiratory infection (principal); J44.1 Chronic obstructive pulmonary disease with (acute) exacerbation; E07.81 Sick-euthyroid syndrome; J20.9 Acute bronchitis, unspecified; T38.0X5A Adverse effect of glucocorticoids and synthetic analogues, initial encounter; R73.9 Hyperglycemia, unspecified; I34.0 Nonrheumatic mitral (valve) insufficiency; H40.9 Unspecified glaucoma; G50.0 Trigeminal neuralgia; Z87.891 Personal history of nicotine dependence; Z79.51 Long term (current) use of inhaled steroids; Z79.52 Long term (current) use of systemic steroids; Z79.899 Other long term (current) drug therapy; Z98.42 Cataract extraction status, left eye; Z98.41 Cataract extraction status, right eye; Z96.1 Presence of intraocular lens; Z98.890 Other specified postprocedural states; Z88.8 Allergy status to other drugs, medicaments and biological substances; Z82.5 Family history of asthma and other chronic lower respiratory diseases; Z82.3 Family history of stroke; Z82.49 Family history of ischemic heart disease and other diseases of the circulatory system
CPT/HCPCS: 31624; 31645; 36415; 71046; 80048; 80053; 83605; 83735; 83880; 84439; 84443; 84481; 84484; 85025; 85379; 85610; 85730; 87040; 87070; 87102; 87116; 87205; 87206; 87252; 87496; 87498; 87502; 87529; 87634; 87798; 88108; 88305; 89050; 93005; 93306; 94640; 94644; 94760; 96361; 96365; 96375; 99291

== ENCOUNTER 2018-12-18 07:41 | Emergency (ER) | payer MEDICARE ==
[2018-12-18 07:48] VITALS: TEMP 98
[2018-12-18] MEDS ORDERED: KETOROLAC 60 MG/2 ML VIAL IM STA (07:53)
[2018-12-18] MEDS ORDERED: MORPHINE SULFATE 4 MG/ML SYRINGE IM STA (07:53)
--- NOTE | 2018-12-18 07:57 | ED ---
General Adult HPI - General Chief complaint: Extremity Injury, Lower Stated complaint: HIP PAIN Time Seen by Provider: 12/18/18 07:42 Source: patient, EMS, RN notes reviewed Mode of arrival: EMS Limitations: no limitations - History of Present Illness Initial comments: Patient is a pleasant 68-year-old female presenting to the emergency Department with complaints of left hip pain. Onset of symptoms was 2 days ago. Symptoms then resolved. Symptoms returned yesterday and have progressively worsened since that time. Discomfort is persistent. Discomfort increases with movement. No history of chronic hip problems. Patient denies any back or sacral pain. No abdominal pain. No lower leg pain. Patient denies any fever or rash. - Related Data Home Medications Medication Instructions Recorded Confirmed Bimatoprost [Lumigan .01% Ophth 1 drop BOTH EYES HS 10/13/17 12/18/18 Soln] Mometasone/Formoterol [Dulera 200 2 puff INHALATION RT-BID 10/13/17 12/18/18 Mcg/5 Mcg Inhaler] Tiotropium [place] [Spiriva] 1 cap INHALATION RT-DAILY 10/13/17 12/18/18 predniSONE 5 mg PO Q48H 09/13/18 12/18/18 Azithromycin [Zithromax] 250 mg PO MOWEFR 12/18/18 12/18/18 carBAMazepine [TEGretol] 100 mg PO TID 12/18/18 12/18/18 Previous Rx's Medication Instructions Recorded predniSONE 2 tab PO DAILY #10 tab 12/18/18 Allergies Allergy/AdvReac Type Severity Reaction Status Date / Time budesonide [From Symbicort] AdvReac ANXIETY Verified 12/18/18 09:02 formoterol [From Symbicort] AdvReac ANXIETY Verified 12/18/18 09:02 Review of Systems ROS Statement: Those systems with pertinent positive or pertinent negative responses have been documented in the HPI. ROS Other: All systems not noted in ROS Statement are negative. Constitutional: Denies: fever, chills Eyes: Denies: eye pain ENT: Denies: ear pain Respiratory: Denies: dyspnea Cardiovascular: Denies: chest pain Endocrine: Denies: fatigue Gastrointestinal: Denies: abdominal pain Genitourinary: Denies: dysuria Musculoskeletal: Reports: arthralgia Skin: Denies: rash Neurological: Denies: weakness Past Medical History Past Medical History: COPD, Eye Disorder Additional Past Medical History / Comment(s): Bronchitis, bilateral eyes with increased intraocular pressure-not glaucoma yet, neuralgia R side forhead in past. History of Any Multi-Drug Resistant Organisms: None Reported Past Surgical History: Breast Surgery, Hernia Repair, Orthopedic Surgery Additional Past Surgical History / Comment(s): Bilateral carpal tunnel; bilateral cataract removal with lens, bronchoscopy, R inguinal hernia repair, colonoscopy, benign L breast biopsy. Past Anesthesia/Blood Transfusion Reactions: No Reported Reaction Past Psychological History: No Psychological Hx Reported Smoking Status: Former smoker Past Alcohol Use History: None Reported Past Drug Use History: None Reported - Past Family History Father Family Medical History: COPD Additional Family Medical History / Comment(s): Father in his 50s of COPD. He was a smoker. Mother Family Medical History: CVA/TIA, Hypertension, Pneumonia Additional Family Medical History / Comment(s): Mother fell at age 85 and fractured her hip. Post op she became HTN and had a stroke and then ended up with pneumonia and . General Exam Limitations: no limitations General appearance: alert, in no apparent distress Head exam: Present: atraumatic Eye exam: Present: normal appearance Neck exam: Present: normal inspection Respiratory exam: Present: normal lung sounds bilaterally Cardiovascular Exam: Present: regular rate, normal rhythm Expanded Peripheral pulses: 2+: Posterior Tibialis (R), Posterior Tibialis (L), Dorsalis Pedis (R), Dorsalis Pedis (L) GI/Abdominal exam: Present: soft. Absent: distended, tenderness, hernia Extremities exam: Present: full ROM (Discomfort with active and passive range of motion), tenderness (Minimal tenderness left anterior hip.), normal capillary refill. Absent: pedal edema, calf tenderness Back exam: Present: normal inspection. Absent: tenderness, vertebral tenderness Neurological exam: Present: alert. Absent: motor sensory deficit Psychiatric exam: Present: normal affect, normal mood Skin exam: Present: normal color. Absent: rash Course Vital Signs 12/18/18 12/18/18 12/18/18 07:46 10:50 12:14 Temperature 98 F Pulse Rate 100 89 89 Respiratory 16 18 18 Rate Blood Pressure 155/85 145/74 171/94 O2 Sat by Pulse 98 94 L 94 L Oximetry - Reevaluation(s) Reevaluation #1: 12/18/18 10:18 Patient reevaluated and still with discomfort. Still with pain with range of motion. Patient is receptive to further imaging with computed tomography scan. Medical Decision Making - Medical Decision Making Case was discussed earlier with Dr. Loya who recommended steroids. He states the patient is able to ambulate some she can be discharged and follow-up in the being the week. Patient was able to ambulate in the emergency department without using a walker. Patient states she does have a cane at home if needed. Patient will be discharged with steroids with close follow-up with orthopedics. Patient is aware of results and need for follow-up. - Lab Data Result diagrams: 12/18/18 10:35 12/18/18 10:35 Lab Results 12/18/18 12/18/18 12/18/18 Range/Units 10:35 10:35 12:12 WBC 8.6 (3.8-10.6) k/uL RBC 4.46 (3.80-5.40) m/uL Hgb 13.3 (11.4-16.0) gm/dL Hct 39.8 (34.0-46.0) % MCV 89.1 (80.0-100.0) fL MCH 29.8 (25.0-35.0) pg MCHC 33.5 (31.0-37.0) g/dL RDW 13.1 (11.5-15.5) % Plt Count 304 (150-450) k/uL Neutrophils % 88 % Lymphocytes % 4 % Monocytes % 6 % Eosinophils % 0 % Basophils % 0 % Neutrophils # 7.6 (1.3-7.7) k/uL Lymphocytes # 0.4 L (1.0-4.8) k/uL Monocytes # 0.5 (0-1.0) k/uL Eosinophils # 0.0 (0-0.7) k/uL Basophils # 0.0 (0-0.2) k/uL Sodium 133 L (137-145) mmol/L Potassium 4.5 (3.5-5.1) mmol/L Chloride 99 (98-107) mmol/L Carbon Dioxide 26 (22-30) mmol/L Anion Gap 8 mmol/L BUN 13 (7-17) mg/dL Creatinine 0.59 (0.52-1.04) mg/dL Est GFR (CKD-EPI)AfAm >90 (>60 ml/min/1.73 sqM) Est GFR (CKD-EPI)NonAf >90 (>60 ml/min/1.73 sqM) Glucose 116 H (74-99) mg/dL Calcium 9.2 (8.4-10.2) mg/dL Total Bilirubin 0.4 (0.2-1.3) mg/dL AST 21 (14-36) U/L ALT 21 (9-52) U/L Alkaline Phosphatase 85 (38-126) U/L C-Reactive Protein 45.6 H (<10.0) mg/L Total Protein 6.6 (6.3-8.2) g/dL Albumin 4.0 (3.5-5.0) g/dL Urine Color Light Yellow Urine Appearance Clear (Clear) Urine pH 7.5 (5.0-8.0) Ur Specific [place] 1.040 H (1.001-1.035) Urine Protein Negative (Negative) Urine Glucose (UA) Negative (Negative) Urine Ketones Trace H (Negative) Urine Blood Negative (Negative) Urine Nitrite Negative (Negative) Urine Bilirubin Negative (Negative) Urine Urobilinogen <2.0 (<2.0) mg/dL Ur Leukocyte Esterase Negative (Negative) - Radiology Data Radiology results: report reviewed (Computed tomography scan of the pelvis and left hip shows degenerative changes. Probable renal cyst.), image reviewed (Pelvis and left hip x-ray show no acute abnormality) Disposition Clinical Impression: Hip pain Disposition: HOME SELF-CARE Condition: Stable Instructions (If sedation given, give patient instructions): Arthralgia (ED), Hip Pain (ED) Additional Instructions: Please follow-up with primary care physician and orthopedics in the beginning of the week. Return for unable to walk, fevers, increased pain, redness, swelling, worsening symptoms or other concerns. Your prescription has been sent to [facility] pharmacy. Prescriptions: predniSONE 2 tab PO DAILY #10 tab Is patient prescribed a controlled substance at d/c from ED?: No Referrals: Jluis Mohan DO [Primary Care Provider] - 1-2 days
--- NOTE | 2018-12-18 08:33 | XR ---
EXAMINATION TYPE: XR Hip LT and AP Pelvis , 3 VIEWS DATE OF EXAM ORDERED: 12/18/2018 HISTORY: Pain. COMPARISON: None. FINDINGS: There are degenerative changes in the lower lumbar spine. Both pelvis, no fracture, dislocation or other acute osseous lesion is seen. There are mild degenerat bria changes present in both hips. IMPRESSION: 1. NO ACUTE OSSEOUS LESION. 2. MILD DEGENERATIVE CHANGE.
[2018-12-18] MEDS ORDERED: RX INFO: IV CONTRAST WAS GIVEN 1 EACH MISC MISCELLANE PRN (10:17)
[2018-12-18] MEDS ORDERED: ORPHENADRINE 30 MG/ML 2 ML VIAL IVP STA (10:17)
[2018-12-18 10:45] LABS: Basophils % (A) 0 %; Eosinophils % (A) 0 %; HCT 39.8 % (34.0-46.0); HGB 13.3 gm/dL (11.4-16.0); Lymphocytes # (A) 0.4 k/uL (1.0-4.8); Lymphocytes % (A) 4 %; MCH 29.8 pg (25.0-35.0); MCHC 33.5 g/dL (31.0-37.0); MCV 89.1 fL (80.0-100.0); Mean Platelet Volume 6.3; Monocytes # (A) 0.5 k/uL (0-1.0); Monocytes % (A) 6 %; Neutrophils # (A) 7.6 k/uL (1.3-7.7); Neutrophils % (A) 88 %; Platelet Count 304 k/uL (150-450); RBC 4.46 m/uL (3.80-5.40); RDW 13.1 % (11.5-15.5); WBC 8.6 k/uL (3.8-10.6)
[2018-12-18 10:52] VITALS: RESP 18
[2018-12-18 10:56] LABS: ALT 21 U/L (9-52); AST 21 U/L (14-36); African American GFR (CKD) >90 (>60 ml/min/1.73 sqM); Alkaline Phosphatase 85 U/L (38-126); Anion Gap 8 mmol/L; Blood Urea Nitrogen 13 mg/dL (7-17); C Reactive Protein 45.6 mg/L (<10.0); Calcium 9.2 mg/dL (8.4-10.2); Carbon Dioxide 26 mmol/L (22-30); Chloride 99 mmol/L (98-107); Glucose 116 mg/dL (74-99); Potassium 4.5 mmol/L (3.5-5.1); Sodium 133 mmol/L (137-145); Total Bilirubin 0.4 mg/dL (0.2-1.3); Total Protein 6.6 g/dL (6.3-8.2)
--- NOTE | 2018-12-18 12:13 | CT ---
EXAMINATION TYPE: CT pelvis w con, CT hip LT w con DATE OF EXAM: 12/18/2018 REFERENCE: NONE HISTORY: Pain HISTORY: Hip pain REFERENCE: NONE CT DLP: 832.8 mGy Automated exposure control for dose reduction was used. TECHNIQUE: Helical acquisition through the abdomen and pelvis was obtained following the oral ingesti on of without Oral Contrast and following intravenous administration of 100 ml mL of Isovue 300. The data was reformatted in axial, coronal and sagittal projections. FINDINGS: There is an exophytic incompletely visualized low attenuating mass arising from the latera l aspect of the mid polar region of the left kidney. Visualized portions of the liver and gallbladder are normal. There is mild to moderate atheromatous calcification of the visualized arterial tree. The bladder is unremarkable. Visualized bowel is unremarkable. There is degenerative disc disease and hypertrophic spondylosis in the lower lumbar spine. There is d egenerative change present in both hips. There is pseudocystic change present in the right hip. No fr acture is seen. IMPRESSION: 1. PROBABLE CYST ARISING FROM THE MID POLAR REGION OF THE LEFT KIDNEY. THIS COULD BE CONFIRMED WITH U LTRASOUND 2. DEGENERATIVE CHANGE WITHIN THE SPINE. 3. DEGENERATIVE CHANGE WITHIN THE HIPS.
[2018-12-18 12:25] LABS: Appearance,Urine Clear (Clear); Bilirubin,Urine Negative (Negative); Blood,Urine Negative (Negative); Color,Urine Light Yellow; Glucose,Urine (UA) Negative (Negative); Ketones,Urine Trace (Negative); Leukocyte Esterase,Urine Negative (Negative); Nitrite,Urine Negative (Negative); PH, Urine 7.5 (5.0-8.0); Protein,Urine Negative (Negative); Urobilinogen,Urine <2.0 mg/dL (<2.0)
[2018-12-18] MEDS ORDERED: methylPREDNISolone SOD SUCCI 125 MG/2 ML VIAL IV STA (12:40)
[2018-12-18 15:10] VITALS: BP 156/78; PULSE 70
== END 2018-12-18 15:09 | disposition home or self-care (01) ==
LOC: EC 07:41
DX: M25.552 Pain in left hip (principal); J44.9 Chronic obstructive pulmonary disease, unspecified; Z87.891 Personal history of nicotine dependence; Z98.890 Other specified postprocedural states; Z79.51 Long term (current) use of inhaled steroids; Z79.52 Long term (current) use of systemic steroids; Z79.899 Other long term (current) drug therapy; Z88.8 Allergy status to other drugs, medicaments and biological substances
CPT/HCPCS: 36415; 80053; 85025; 86140; 81003; 73502; 72193; 73701; 99284; 96374; 96375; 96372 ×2; J2270; J2360; J2930; J1885; Q9967

== ENCOUNTER → 2019-01-13 | Outpatient (CLI) | payer MEDICARE ==
--- NOTE | 2019-01-13 15:54 | US ---
EXAMINATION TYPE: US kidneys/renal and bladder DATE OF EXAM: 01/13/2019 COMPARISON: CT 2019 CLINICAL HISTORY: N28.1 CYST OF KIDNEY. Left kidney cyst seen on recent CT EXAM MEASUREMENTS: Right Kidney: 11.2 x 4.6 x 4.2 cm Left Kidney: 11.1 x 4.7 x 4.4 cm Right Kidney: There is slight fullness of the renal pelvis without dalia hydronephrosis. Correspondin g to the prior CT there is a 1.6 x 1.3 x 1.7cm renal sinus cyst. Left Kidney: As seen on the prior CT of 12/18/2018 there is an exophytic cyst of the lateral mid pole measuring 2.8 x 2.5 x 3.2cm that appears anechoic and simple. Bladder: wnl Bilateral Jets seen: yes There is no evidence for hydronephrosis at this point in time. No nephrolithiasis is seen. No brennan s are identified. The urinary bladder is anechoic. Bilateral ureteral jets are seen. There is malro tation of the left kidney noted. IMPRESSION: Benign-appearing left renal cyst and right renal sinus cyst. 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
== END | disposition home or self-care (01) ==
LOC: RADUSWWP 14:49
PROVIDERS: ATTEND Family Medicine
DX: Q63.2 Ectopic kidney (principal)
CPT/HCPCS: 76770

== ENCOUNTER 2020-01-07 16:59 | Emergency (ER) | payer MEDICARE ==
[2020-01-07 17:02] VITALS: TEMP 98
[2020-01-07] MEDS ORDERED: IPRATROPIUM-ALBUTEROL 3 ML NEB INHALATION STA (17:11)
[2020-01-07] MEDS ORDERED: SODIUM CHLORIDE 0.9% 1,000 ML IV STA (17:13)
--- NOTE | 2020-01-07 17:15 | ED ---
General Adult HPI - General Chief complaint: Shortness of Breath Stated complaint: COPD, congestion Time Seen by Provider: 01/07/20 17:04 Source: patient Mode of arrival: ambulatory Limitations: no limitations - History of Present Illness Initial comments: Dictation was produced using [employer] dictation software. please excuse any grammatical, word or spelling errors. This patient was cared for during a federal and state declared state of emergen cy secondary to Covid 19 Chief Complaint: 69-year-old male presents with shortness of breath and productive cough. History of Present Illness: 69-year-old female presents with shortness of breath and productive cough. Patient states her symptoms have been ongoing since yesterday. She does report a history of COPD. She was put on Levaquin and prednisone. Course of her symptoms have not really improved. 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 She denies any chest pain. She does complain of some mild shortness of breath. Denies any nausea or vomiting. She states that her sputum is white and thick. She states that that certainly reason why she can't breathe. She denies any overt contact with individuals suspicious for coronavirus. The ROS documented in this emergency department record has been reviewed and confirmed by me. Those systems with pertinent positive or negative responses have been documented in the HPI. All other systems are other negative and/or noncontributory. PHYSICAL EXAM: General Impression: Alert and oriented x3, not in acute distress HEENT: Normocephalic atraumatic, extra-ocular movements intact, pupils equal and reactive to light bilaterally, dry mucous membranes Cardiovascular: Heart regular rate and rhythm Chest: Able to complete full sentences, no retractions, no tachypnea lungs clear to auscultation bilaterally Abdomen: abdomen soft, non-tender, non-distended, no organomegaly Musculoskeletal: Pulses present and equal in all extremities, no peripheral edema Motor: no focal deficits noted Neurological: CN II-XII grossly intact, no focal motor or sensory deficits noted Skin: Intact with no visualized rashes Psych: Normal affect and mood ED course: 69-year-old female presents with productive cough and shortness of breath. As upon arrival shows heart rate of 105, blood pressure 209/105, rest of vital signs within acceptable limits. Patient's coffee at bedside however she does not have any wheezing upon auscultation of the lung. Laboratory evaluation obtained. CBC is unremarkable. Coag panel is negative. D-dimer 0.51. Age adjusted d-dimer is negative. Metabolic panel is negative. Prematurity peptide is 176. No concern for pulmonary emboli at this time. No evidence of acute side causing shortness of breath. Patient given breathing treatment.X-rays unremarkable. At this point no other abnormalities noted. X-rays are clear. I believe the medication she owns is appropriate. Patient has some Mucinex at home that she does bought however hasn't taken yet. Patient is strongly advised to begin using this medication to help break on the sputum. Patient also told to hydrate well in order to help loosen the phlegm. Patient's well-appearing at bedside. She is advised follow-up with primary care physician upon discharge. Return parameters discussed. EKG interpretation: Ventricular rate 97, normal sinus rhythm,. 154, QRS 82, QTC 414. No AK prolongation, no QTC prolongation, no ST or T-wave changes noted. EKG compared to 09/13/2018 showing no changes. Overall, this EKG is unremarkable - Related Data Home Medications Medication Instructions Recorded Confirmed Bimatoprost [Lumigan .01% Ophth 1 drop BOTH EYES HS 10/13/17 12/18/18 Soln] Mometasone/Formoterol [Dulera 200 2 puff INHALATION RT-BID 10/13/17 12/18/18 Mcg-5 Mcg Inhaler] Tiotropium [place] [Spiriva] 1 cap INHALATION RT-DAILY 10/13/17 12/18/18 predniSONE 5 mg PO Q48H 09/13/18 12/18/18 Azithromycin [Zithromax] 250 mg PO MOWEFR 12/18/18 12/18/18 carBAMazepine [TEGretol] 100 mg PO TID 12/18/18 12/18/18 Previous Rx's Medication Instructions Recorded predniSONE [Deltasone] 2 tab PO DAILY #10 tab 12/18/18 Allergies Allergy/AdvReac Type Severity Reaction Status Date / Time budesonide [From Symbicort] AdvReac ANXIETY Verified 01/07/20 17:02 formoterol [From Symbicort] AdvReac ANXIETY Verified 01/07/20 17:02 Review of Systems ROS Statement: Those systems with pertinent positive or pertinent negative responses have been documented in the HPI. ROS Other: All systems not noted in ROS Statement are negative. Past Medical History Past Medical History: COPD, Eye Disorder Additional Past Medical History / Comment(s): Bronchitis, bilateral eyes with increased intraocular pressure-not glaucoma yet, neuralgia R side forhead in past. History of Any Multi-Drug Resistant Organisms: None Reported Past Surgical History: Breast Surgery, Hernia Repair, Orthopedic Surgery Additional Past Surgical History / Comment(s): Bilateral carpal tunnel; bilateral cataract removal with lens, bronchoscopy, R inguinal hernia repair, colonoscopy, benign L breast biopsy. Past Anesthesia/Blood Transfusion Reactions: No Reported Reaction Past Psychological History: No Psychological Hx Reported Smoking Status: Former smoker Past Alcohol Use History: None Reported Past Drug Use History: None Reported - Past Family History Father Family Medical History: COPD Additional Family Medical History / Comment(s): Father in his 50s of COPD. He was a smoker. Mother Family Medical History: CVA/TIA, Hypertension, Pneumonia Additional Family Medical History / Comment(s): Mother fell at age 85 and fractured her hip. Post op she became HTN and had a stroke and then ended up with pneumonia and . General Exam Limitations: no limitations Course Vital Signs 01/07/20 01/07/20 01/07/20 17:01 17:54 18:00 Temperature 98.0 F Pulse Rate 105 H 89 90 Respiratory 24 Rate Blood Pressure 209/105 O2 Sat by Pulse 98 Oximetry Medical Decision Making - Lab Data Result diagrams: 01/07/20 17:23 01/07/20 17:23 Lab Results 01/07/20 01/07/20 01/07/20 Range/Units 17:23 17:23 17:23 WBC 6.7 (3.8-10.6) k/uL RBC 4.80 (3.80-5.40) m/uL Hgb 13.8 (11.4-16.0) gm/dL Hct 42.9 (34.0-46.0) % MCV 89.4 (80.0-100.0) fL MCH 28.8 (25.0-35.0) pg MCHC 32.3 (31.0-37.0) g/dL RDW 13.2 (11.5-15.5) % Plt Count 306 (150-450) k/uL Neutrophils % 81 % Lymphocytes % 11 % Monocytes % 6 % Eosinophils % 0 % Basophils % 0 % Neutrophils # 5.4 (1.3-7.7) k/uL Lymphocytes # 0.8 L (1.0-4.8) k/uL Monocytes # 0.4 (0-1.0) k/uL Eosinophils # 0.0 (0-0.7) k/uL Basophils # 0.0 (0-0.2) k/uL PT 9.9 (9.0-12.0) sec INR 0.9 (<1.2) APTT 22.9 (22.0-30.0) sec D-Dimer 0.51 (<0.60) mg/L FEU Sodium 133 L (137-145) mmol/L Potassium 4.4 (3.5-5.1) mmol/L Chloride 99 (98-107) mmol/L Carbon Dioxide 25 (22-30) mmol/L Anion Gap 9 mmol/L BUN 20 H (7-17) mg/dL Creatinine 0.73 (0.52-1.04) mg/dL Est GFR (CKD-EPI)AfAm >90 (>60 ml/min/1.73 sqM) Est GFR (CKD-EPI)NonAf 85 (>60 ml/min/1.73 sqM) Glucose 116 H (74-99) mg/dL Calcium 9.4 (8.4-10.2) mg/dL NT-Pro-B Natriuret Pep pg/mL 01/07/20 Range/Units 17:23 WBC (3.8-10.6) k/uL RBC (3.80-5.40) m/uL Hgb (11.4-16.0) gm/dL Hct (34.0-46.0) % MCV (80.0-100.0) fL MCH (25.0-35.0) pg MCHC (31.0-37.0) g/dL RDW (11.5-15.5) % Plt Count (150-450) k/uL Neutrophils % % Lymphocytes % % Monocytes % % Eosinophils % % Basophils % % Neutrophils # (1.3-7.7) k/uL Lymphocytes # (1.0-4.8) k/uL Monocytes # (0-1.0) k/uL Eosinophils # (0-0.7) k/uL Basophils # (0-0.2) k/uL PT (9.0-12.0) sec INR (<1.2) APTT (22.0-30.0) sec D-Dimer (<0.60) mg/L FEU Sodium (137-145) mmol/L Potassium (3.5-5.1) mmol/L Chloride (98-107) mmol/L Carbon Dioxide (22-30) mmol/L Anion Gap mmol/L BUN (7-17) mg/dL Creatinine (0.52-1.04) mg/dL Est GFR (CKD-EPI)AfAm (>60 ml/min/1.73 sqM) Est GFR (CKD-EPI)NonAf (>60 ml/min/1.73 sqM) Glucose (74-99) mg/dL Calcium (8.4-10.2) mg/dL NT-Pro-B Natriuret Pep 176 pg/mL Disposition Clinical Impression: Cough Disposition: HOME SELF-CARE Condition: Good Instructions (If sedation given, give patient instructions): Acute Cough (ED) Is patient prescribed a controlled substance at d/c from ED?: No Referrals: Jluis Mohan DO [Primary Care Provider] - 1-2 days Time of Disposition: 18:41
[2020-01-07 17:51] LABS: Basophils % (A) 0 %; Eosinophils % (A) 0 %; HCT 42.9 % (34.0-46.0); HGB 13.8 gm/dL (11.4-16.0); Lymphocytes # (A) 0.8 k/uL (1.0-4.8); Lymphocytes % (A) 11 %; MCH 28.8 pg (25.0-35.0); MCHC 32.3 g/dL (31.0-37.0); MCV 89.4 fL (80.0-100.0); Mean Platelet Volume 7.4; Monocytes # (A) 0.4 k/uL (0-1.0); Monocytes % (A) 6 %; Neutrophils # (A) 5.4 k/uL (1.3-7.7); Neutrophils % (A) 81 %; Platelet Count 306 k/uL (150-450); RDW 13.2 % (11.5-15.5); WBC 6.7 k/uL (3.8-10.6)
[2020-01-07 18:01] LABS: African American GFR (CKD) >90 (>60 ml/min/1.73 sqM); Anion Gap 9 mmol/L; Blood Urea Nitrogen 20 mg/dL (7-17); Calcium 9.4 mg/dL (8.4-10.2); Carbon Dioxide 25 mmol/L (22-30); Chloride 99 mmol/L (98-107); Glucose 116 mg/dL (74-99); Non-African American GFR(CKD) 85 (>60 ml/min/1.73 sqM); Potassium 4.4 mmol/L (3.5-5.1); Sodium 133 mmol/L (137-145)
[2020-01-07 18:09] LABS: D-Dimer 0.51 mg/L FEU (<0.60); INR 0.9 (<1.2); Prothrombin Time 9.9 sec (9.0-12.0)
[2020-01-07 18:10] LABS: Partial Thromboplastin Time 22.9 sec (22.0-30.0)
--- NOTE | 2020-01-07 18:32 | XR ---
EXAMINATION TYPE: XR chest 2V DATE OF EXAM: 01/07/2020 COMPARISON: 01/02/2020 HISTORY: Cough TECHNIQUE: 2 views FINDINGS: There is pulmonary hyperinflation and flattening of the diaphragm. Heart size is normal. Th ere are chest leads. Costophrenic angles are clear. The bony thorax is intact. IMPRESSION: No active cardiopulmonary disease. Normal heart. No change.
[2020-01-07 19:09] VITALS: BP 180/94; PULSE 92; RESP 18
== END 2020-01-07 19:10 | disposition home or self-care (01) ==
LOC: EC 16:59
DX: R05 Cough (principal); R06.02 Shortness of breath; R03.0 Elevated blood-pressure reading, without diagnosis of hypertension; Z79.899 Other long term (current) drug therapy; Z87.891 Personal history of nicotine dependence; Z88.8 Allergy status to other drugs, medicaments and biological substances; Z87.09 Personal history of other diseases of the respiratory system
CPT/HCPCS: 36415; 71046; 80048; 83880; 85025; 85379; 85610; 85730; 93005; 94640; 96360; 99285

== ENCOUNTER → 2020-08-14 | Outpatient (CLI) | payer MEDICARE ==
--- NOTE | 2020-08-16 08:04 | BD ---
EXAMINATION TYPE: Axial Bone Density DATE OF EXAM: 08/14/2020 COMPARISON: 05/12/2018 CLINICAL HISTORY: Height: 64 IN Weight: 136 LBS FRAX RISK QUESTIONS: Family History (Parent hip fracture): YES MOTHER Glucocorticoids (More than 3mos): 5 MG EVERY OTHER DAYFOR 3 YEARS (Ex: prednisone, prednisolone, methylprednisolone, dexamethasone, and hydrocortisone). RISK FACTORS HISTORY OF: Family History of Osteoporosis: YES MOTHER Active: YES Diet low in dairy products/other sources of calcium: YES Postmenopausal woman: AGE 50 MEDICATIONS: Prednisone or other steroids: 5 MG PREDNISONE EVERY OTHER DAY FOR 3+ YEARS Additional Medications: 5 MG EVERY OTHER DAY PREDNISONE,SPIRIVA, DULERA, AZITHROMCIN, EXAM MEASUREMENTS: Bone mineral densitometry was performed using the [employer] System. Bone mineral density as measured about the Lumbar spine is: ----- L1-L4(G/cm2): 1.003 T Score Values are as follows: ----- L2: -1.2 ----- L3: -1.0 ----- L4: -2.0 ----- L1-L4: -1.5 Bone mineral density has: Decreased -4.4% since study of: 05/12/2018 Bone mineral density about the R hip (g/cm2): 0.836 Bone mineral density about the L hip (g/cm2): 0.869 T Score values are as follows: -----R Neck: -1.5 -----L Neck: -1.2 -----R Total: -1.9 -----L Total: -1.4 Bone mineral density has: Decreased -7.2% since study of: 05/12/2018 IMPRESSION: Osteopenia (T Score between -2.5 and -1). There is slightly increased risk of fracture and the patient may be considered for treatment. Re-Screen 2-5 years. NOTE: T-SCORE=SD OF THE YOUNG ADULT MEAN.
--- NOTE | 2020-08-19 10:00 | MM ---
Reason for exam: screening (asymptomatic). Last mammogram was performed 1 year and 2 months ago. History: Patient is postmenopausal and is nulliparous. Family history of breast cancer in sister at age 58. Benign stereotactic core biopsy of the left breast, January 14, 2004. Core biopsy of the left breast. Took hormonal contraceptives for 1 year. Physical Findings: A clinical breast exam by your physician is recommended on an annual basis and results should be correlated with mammographic findings. MG Screening Mammo w CAD Bilateral CC and MLO view(s) were taken. Prior study comparison: June 08, 2019, bilateral MG screening mammo w CAD. May 12, 2018, bilateral MG screening mammo w CAD. The breast tissue is heterogeneously dense. This may lower the sensitivity of mammography. Previous mammotome biopsy in the left breast. Benign oil cyst calcifications. No significant changes when compared with prior studies. ASSESSMENT: Negative, BI-RAD 1 RECOMMENDATION: Routine screening mammogram of both breasts in 1 year.
== END ==
LOC: RADMAMWWP 11:03
PROVIDERS: ATTEND Obstetrics & Gynecology
DX: M85.80 Other specified disorders of bone density and structure, unspecified site (principal)
CPT/HCPCS: 77067; 77080

== ENCOUNTER 2021-03-19 14:10 | Emergency (ER) | payer MEDICARE ==
[2021-03-19] MEDS ORDERED: IPRATROPIUM-ALBUTEROL 3 ML NEB INHALATION STA (14:39)
--- NOTE | 2021-03-19 14:45 | ED ---
General Adult HPI - General Chief complaint: Allergic Reaction Stated complaint: Poss Allergic Reaction Time Seen by Provider: 03/19/21 14:20 Source: patient, RN notes reviewed, old records reviewed Mode of arrival: wheelchair Limitations: no limitations - History of Present Illness Initial comments: This is a 70-year-old female who presents emergency department stating that she took some nystatin liquid for thrush that her doctor gave her after she took she felt like her throat was irritated and was concerned it might close off. Patient denies any difficulty breathing but she does states she is coughing a lot. Patient states she has albuterol nebulizer but does not take it because it always makes her cough when she takes and sometimes makes her cough up sputum and she doesn't like that. Patient denies any chest pain patient denies any palpitations. Patient is on steroids right now for her COPD at 40 mg a day currently and will be going down to 30 mg a day sounds. - Related Data Home Medications Medication Instructions Recorded Confirmed Bimatoprost [Lumigan .01% Ophth 1 drop BOTH EYES HS 10/13/17 03/19/21 Soln] Mometasone/Formoterol [Dulera 200 2 puff INHALATION RT-BID 10/13/17 03/19/21 Mcg-5 Mcg Inhaler] Tiotropium [place] [Spiriva] 1 cap INHALATION RT-DAILY 10/13/17 03/19/21 predniSONE 5 mg PO DAILY 09/13/18 03/19/21 Azithromycin [Zithromax] 250 mg PO MOWEFR 12/18/18 03/19/21 Albuterol Nebulized [Ventolin 2.5 mg INHALATION RT-Q4H PRN 03/19/21 03/19/21 Nebulized] Atorvastatin [Lipitor] 10 mg PO W/SUPPER 03/19/21 03/19/21 Cholecalciferol [Vitamin D3 (25 25 mcg PO DAILY 03/19/21 03/19/21 Mcg = 1000 Iu)] Levofloxacin [Levaquin] 500 mg PO DAILY 03/19/21 03/19/21 Meloxicam [Mobic] 15 mg PO DAILY PRN 03/19/21 03/19/21 Nystatin 100,000 Unit/ml Susp 5 ml PO QID 03/19/21 03/19/21 [Mycostatin Oral Susp] carBAMazepine 100 mg PO TID PRN 03/19/21 03/19/21 predniSONE See Taper PO DAILY 03/19/21 03/19/21 traZODone HCL [Desyrel] 50 mg PO HS PRN 03/19/21 03/19/21 Allergies Allergy/AdvReac Type Severity Reaction Status Date / Time budesonide [From Symbicort] AdvReac ANXIETY Verified 03/19/21 16:16 formoterol [From Symbicort] AdvReac ANXIETY Verified 03/19/21 16:16 Review of Systems ROS Statement: Those systems with pertinent positive or pertinent negative responses have been documented in the HPI. ROS Other: All systems not noted in ROS Statement are negative. Past Medical History Past Medical History: COPD, Eye Disorder Additional Past Medical History / Comment(s): Bronchitis, bilateral eyes with increased intraocular pressure-not glaucoma yet, neuralgia R side forhead in past. History of Any Multi-Drug Resistant Organisms: None Reported Past Surgical History: Breast Surgery, Hernia Repair, Orthopedic Surgery Additional Past Surgical History / Comment(s): Bilateral carpal tunnel; bila teral cataract removal with lens, bronchoscopy, R inguinal hernia repair, colonoscopy, benign L breast biopsy. Past Anesthesia/Blood Transfusion Reactions: No Reported Reaction Past Psychological History: No Psychological Hx Reported Smoking Status: Former smoker Past Alcohol Use History: None Reported Past Drug Use History: None Reported - Past Family History Father Family Medical History: COPD Additional Family Medical History / Comment(s): Father in his 50s of COPD. He was a smoker. Mother Family Medical History: CVA/TIA, Hypertension, Pneumonia Additional Family Medical History / Comment(s): Mother fell at age 85 and fractured her hip. Post op she became HTN and had a stroke and then ended up with pneumonia and . General Exam - General Exam Comments Initial Comments: GENERAL: Patient is well-developed and well-nourished. Patient is nontoxic and well- hydrated and is in mild distress. ENT: Neck is soft and supple. No significant lymphadenopathy is noted. Oropharynx is clear. Moist mucous membranes. Neck has full range of motion without eliciting any pain. There is no thyroid enlargement and no masses were felt. EYES: The sclera were anicteric and conjunctiva were pink and moist. Extraocular movements were intact and pupils were equal round and reactive to light. Eyelids were unremarkable. PULMONARY: Patient has some expiratory wheezing CARDIOVASCULAR: There is a regular rate and rhythm without any murmurs gallops or rubs. ABDOMEN: Soft and nontender with normal bowel sounds. SKIN: Skin is clear with no lesions or rashes and otherwise unremarkable. NEUROLOGIC: Patient is alert and oriented x3. Cranial nerves II through XII are grossly intact. Motor and sensory are also intact. Normal speech, volume and content. Symmetrical smile. MUSCULOSKELETAL: Normal extremities with adequate strength and full range of motion. LYMPHATICS: No significant lymphadenopathy is noted PSYCHIATRIC: Normal psychiatric evaluation. Limitations: no limitations Course Vital Signs 03/19/21 03/19/21 03/19/21 14:19 15:06 15:14 Temperature 98.0 F Pulse Rate 108 H 80 82 Respiratory 19 Rate Blood Pressure 151/8 O2 Sat by Pulse 96 Oximetry 03/19/21 03/19/21 03/19/21 16:00 16:37 17:43 Temperature 97.4 F L Pulse Rate 89 108 H Respiratory 16 16 Rate Blood Pressure 181/100 198/99 163/75 O2 Sat by Pulse 95 97 Oximetry Medical Decision Making - Medical Decision Making patient did not want Benadryl this time because she has to drive home. EKG shows normal sinus rhythm at 94 bpm [place] interval is on a 46 QRS is 82 QT interval 336 QTC is 420. Patient's EKG shows no ST segment elevation or depression. Patient has a chest x-ray shows no acute abnormality. Patient did receive Benadryl emergency department. I went back into reevaluate her should stay much better however her blood pressure was elevated. Patient states yesterday she was at her doctor's office and her blood pressure was normal. I had an IV started on the patient we gave her hydralazine emergency department or pressure came down and she remained asymptomatic at this time. Disposition Clinical Impression: Hypertensive urgency, Allergic reaction caused by a drug Disposition: HOME SELF-CARE Condition: Good Instructions (If sedation given, give patient instructions): Hypertension (ED), Allergies (ED) Additional Instructions: Patient should follow-up with her primary medical care doctor soon as possible for high blood pressure. Patient should take her blood pressure before the meal before bed and documents of primary medical care doctor can assess her needs. Patient returns emergency Department having chest pain difficulty breathing or any blurred vision. Patient should return to the emergency department blood pressures over 160 systolic or 100 diastolic. Is patient prescribed a controlled substance at d/c from ED?: No Referrals: Jluis Mohan DO [Primary Care Provider] - 1-2 days Time of Disposition: 18:09
[2021-03-19] MEDS ORDERED: diphenhydrAMINE 50 MG CAP PO STA (14:58)
--- NOTE | 2021-03-19 15:59 | XR ---
EXAMINATION TYPE: XR chest 2V DATE OF EXAM: 03/19/2021 COMPARISON: Chest x-ray 01/07/2020, CT chest 02/08/2018 HISTORY: Difficulty breathing TECHNIQUE: Frontal and lateral views of the chest are obtained. FINDINGS: There is no focal air space opacity, pleural effusion, or pneumothorax seen. The cardiac silhouette size is within normal limits. The osseous structures are intact, bone mineralization is reduced. There are prominent lung volumes as on prior exam resting COPD. IMPRESSION: No acute cardiopulmonary process. Emphysema.
[2021-03-19 16:16] VITALS: RESP 16; TEMP 97.4
[2021-03-19] MEDS ORDERED: hydrALAZINE HCL 20 MG/ML 1 ML VIAL IVP STA (17:05)
[2021-03-19] MEDS ORDERED: LORazepam 2 MG/ML INJ IV STA (17:39)
[2021-03-19 17:44] VITALS: BP 163/75; PULSE 108
== END 2021-03-19 18:29 | disposition home or self-care (01) ==
LOC: EC 14:10
DX: I16.0 Hypertensive urgency (principal); T50.905A Adverse effect of unspecified drugs, medicaments and biological substances, initial encounter; J44.9 Chronic obstructive pulmonary disease, unspecified; Z87.891 Personal history of nicotine dependence; Z79.52 Long term (current) use of systemic steroids; Z79.1 Long term (current) use of non-steroidal anti-inflammatories (NSAID); Z79.51 Long term (current) use of inhaled steroids; Z79.899 Other long term (current) drug therapy
CPT/HCPCS: 99284 ×2; 96374 ×2; 96375 ×2; 94640; 93005; 71046; J2060; J0360

== ENCOUNTER 2021-03-23 13:31 | Observation (INO) | payer MEDICARE ==
[2021-03-23] MEDS ORDERED: MAGNESIUM SULFATE-D5W PMX 1 GM in DEXTROSE/WATER 1 100ML.BAG IVPB ONE (14:47)
[2021-03-23] MEDS ORDERED: IPRATROPIUM-ALBUTEROL 3 ML NEB INHALATION STA ×2 (14:47→14:48)
[2021-03-23] MEDS ORDERED: methylPREDNISolone SOD SUCCI 125 MG/2 ML VIAL IV STA (14:48)
[2021-03-23 15:04] LABS: Basophils % (A) 0 %; Eosinophils % (A) 1 %; HCT 44.7 % (34.0-46.0); HGB 15.2 gm/dL (11.4-16.0); Lymphocytes # (A) 0.2 k/uL (1.0-4.8); Lymphocytes % (A) 3 %; MCH 30.7 pg (25.0-35.0); MCV 90.2 fL (80.0-100.0); Mean Platelet Volume 7.2; Monocytes # (A) 0.4 k/uL (0-1.0); Monocytes % (A) 5 %; Neutrophils % (A) 92 %; Platelet Count 307 k/uL (150-450); RBC 4.96 m/uL (3.80-5.40); RDW 14.3 % (11.5-15.5); WBC 7.6 k/uL (3.8-10.6)
[2021-03-23 15:14] LABS: ALT 26 U/L (4-34); AST 25 U/L (14-36); African American GFR (CKD) >90 (>60 ml/min/1.73 sqM); Albumin 3.9 g/dL (3.5-5.0); Alkaline Phosphatase 62 U/L (38-126); Anion Gap 6 mmol/L; Blood Urea Nitrogen 18 mg/dL (7-17); Calcium 9.8 mg/dL (8.4-10.2); Carbon Dioxide 25 mmol/L (22-30); Chloride 102 mmol/L (98-107); Glucose 125 mg/dL (74-99); Non-African American GFR(CKD) 83 (>60 ml/min/1.73 sqM); Potassium 4.9 mmol/L (3.5-5.1); Sodium 133 mmol/L (137-145); Total Bilirubin 0.6 mg/dL (0.2-1.3); Total Protein 6.8 g/dL (6.3-8.2)
--- NOTE | 2021-03-23 15:41 | XR ---
EXAMINATION TYPE: XR chest 2V DATE OF EXAM: 03/23/2021 COMPARISON: 03/19/2021 HISTORY: Cough. Short of breath TECHNIQUE: 2 views FINDINGS: Heart is normal. Lungs are clear of infiltrate. There is no heart failure. There is flatten ing of the diaphragm. Bony thorax is intact. IMPRESSION: There is evidence of COPD. No acute lung disease. No change.
[2021-03-23] MEDS ORDERED: ACETAMINOPHEN TAB 325 MG TAB PO PRN (16:41)
[2021-03-23] MEDS ORDERED: NALOXONE 0.4 MG/ML 1 ML VIAL IV PRN (16:41)
--- NOTE | 2021-03-23 16:41 | ED ---
General Adult HPI - General Chief complaint: Shortness of Breath Stated complaint: DOMINIQUE Time Seen by Provider: 03/23/21 14:32 Source: patient, RN notes reviewed, old records reviewed Mode of arrival: wheelchair Limitations: no limitations - History of Present Illness Initial comments: Patient was evaluated when she was placed in a room. Patient is a 70-year-old female who presents emergency Department complaining of his COPD exacerbation. I evaluated the patient when she was placed in a room. Patient is a past medical history of COPD not on oxygen at home. She states that over the last month she has had intermittent COPD exacerbations. She recently completed a course of Levaquin for bronchitis last week. Just states she is currently on prednisone therapy. She states that her breathing treatments have not been improving and over the last 2-3 days she has noticed worsening shortness of breath. She also endorses a nonproductive cough. She has required bronchoscopy previously to help with mucous plugs. She denies any chest pain, abdominal pain, nausea, vomiting. Denies any lightheadedness, weakness, numbness. Denies any headaches. His no other acute complaints at this time. She has any fevers, chills, sick contacts. She was vaccinated for COVID-19. She presents emergency department over concern for worsening COPD exacerbation. She is on oral prednisone therapy as well as home inhalers which didn't seem to be improving h er symptoms. - Related Data Home Medications Medication Instructions Recorded Confirmed Bimatoprost [Lumigan .01% Ophth 1 drop BOTH EYES HS 10/13/17 03/23/21 Soln] Mometasone/Formoterol [Dulera 200 2 puff INHALATION RT-BID 10/13/17 03/23/21 Mcg-5 Mcg Inhaler] Tiotropium [place] [Spiriva] 1 cap INHALATION RT-DAILY 10/13/17 03/23/21 predniSONE 5 mg PO DIRECTED 09/13/18 03/23/21 Azithromycin [Zithromax] 250 mg PO MOWEFR 12/18/18 03/23/21 Albuterol Nebulized [Ventolin 2.5 mg INHALATION RT-Q4H PRN 03/19/21 03/23/21 Nebulized] Atorvastatin [Lipitor] 10 mg PO W/SUPPER 03/19/21 03/23/21 Cholecalciferol [Vitamin D3 (25 25 mcg PO DAILY 03/19/21 03/23/21 Mcg = 1000 Iu)] Meloxicam [Mobic] 15 mg PO DAILY PRN 03/19/21 03/23/21 Nystatin 100,000 Unit/ml Susp 5 ml PO QID 03/19/21 03/23/21 [Mycostatin Oral Susp] carBAMazepine 100 mg PO TID PRN 03/19/21 03/23/21 predniSONE See Taper PO DAILY 03/19/21 03/23/21 traZODone HCL [Desyrel] 50 mg PO HS PRN 03/19/21 03/23/21 Allergies Allergy/AdvReac Type Severity Reaction Status Date / Time budesonide [From Symbicort] AdvReac ANXIETY Verified 03/23/21 14:06 formoterol [From Symbicort] AdvReac ANXIETY Verified 03/23/21 14:06 Review of Systems ROS Statement: Those systems with pertinent positive or pertinent negative responses have been documented in the HPI. Review of Systems: CONST: Denies fever EYES: Denies blurry vision ENT: Denies nasal congestion C/V: Denies Chest pain RESP: Endorses wheezing, shortness of breath GI: Denies abdominal pain : Denies dysuria SKIN: Denies rash. MSK: Denies joint pain. NEURO: Denies headache ROS Other: All systems not noted in ROS Statement are negative. Past Medical History Past Medical History: COPD, Eye Disorder Additional Past Medical History / Comment(s): Bronchitis, bilateral eyes with increased intraocular pressure-not glaucoma yet, neuralgia R side forhead in past. History of Any Multi-Drug Resistant Organisms: None Reported Past Surgical History: Breast Surgery, Hernia Repair, Orthopedic Surgery Additional Past Surgical History / Comment(s): Bilateral carpal tunnel; bilateral cataract removal with lens, bronchoscopy, R inguinal hernia repair, co lonoscopy, benign L breast biopsy. Past Anesthesia/Blood Transfusion Reactions: No Reported Reaction Past Psychological History: No Psychological Hx Reported Smoking Status: Former smoker Past Alcohol Use History: None Reported Past Drug Use History: None Reported - Past Family History Father Family Medical History: COPD Additional Family Medical History / Comment(s): Father in his 50s of COPD. He was a smoker. Mother Family Medical History: CVA/TIA, Hypertension, Pneumonia Additional Family Medical History / Comment(s): Mother fell at age 85 and fractured her hip. Post op she became HTN and had a stroke and then ended up w ith pneumonia and . General Exam - General Exam Comments Initial Comments: General: Appears in mild distress and is tachypneic. HEAD: Normal with no signs of head trauma. EYES: PERRLA, EOMI, conjunctiva normal, no discharge. ENT: Hearing grossly intact, normal oropharynx. No rhinorrhea appreciated. Trachea is midline. RESPIRATORY: Patient has bilateral end expiratory wheezing without any obvious rales. There is mildly increased work of breathing. She is tachypneic. C/V: Mildly tachycardic with a regular rhythm in triage. S1 and S2 auscultated. No peripheral edema. Peripheral pulses are 2+ and intact throughout. ABD: Abd is soft, nontender, nondistended EXT: Normal range of motion, no obvious deformity SKIN: No rashes or lesions observed on exposed skin. NEURO: Alert and oriented 4. No focal deficits. Limitations: no limitations Course Vital Signs 03/23/21 03/23/21 03/23/21 14:04 15:00 15:10 Temperature 99.1 F Pulse Rate 116 H 72 76 Respiratory 24 Rate Blood Pressure 134/98 O2 Sat by Pulse 94 L Oximetry Medical Decision Making - Medical Decision Making Based on the patient's presentation and physical exam, I'm concerned for was likely a COPD exacerbation. I cannot rule out infectious etiology at this time and therefore we will obtain viral swabs consisting of flu, RSV, Covid in addition to chest x-ray and basic labs. Screening EKG will also be obtained. She was in agreement with this plan. She'll be connected to continuous pulse oximetry while she is here in the department. She varies from 94-96% on room air. She currently is sinus tachycardic. She was symptomatically treated with multiple DuoNeb breathing treatments as well as IV Solu-Medrol and IV magnesium. Patient's EKG showed sinus tachycardia without any signs of acute ischemia. Chest x-ray shows no acute cardiopulmonary process but findings consistent with COPD. Laboratory studies are remarkable for mild hyponatremia of 133. The remainder of her labs are unremarkable. Patient is flu, RSV, Covid negative. On reevaluation, patient still tachypneic with ambulation and has bilateral end expiratory wheezing, although there is some improvement. We did discuss the findings of her laboratory studies, imaging. I would like to admit her to the hospital for her COPD exacerbation. Every 6 hours Solu-Medrol will be ordered as well as every 4 hours DuoNeb. Patient was in agreement this plan. I will consult pulmonology to evaluate the patient tomorrow, Dr. Henao. I spoke with the admitting team under Dr. Nolen who was in agreement this plan. Patient was therefore admitted in serious condition. - Lab Data Result diagrams: 03/23/21 14:52 03/23/21 14:52 Lab Results 03/23/21 03/23/21 03/23/21 Range/Units 14:52 14:52 14:52 WBC 7.6 (3.8-10.6) k/uL RBC 4.96 (3.80-5.40) m/uL Hgb 15.2 (11.4-16.0) gm/dL Hct 44.7 (34.0-46.0) % MCV 90.2 (80.0-100.0) fL MCH 30.7 (25.0-35.0) pg MCHC 34.0 (31.0-37.0) g/dL RDW 14.3 (11.5-15.5) % Plt Count 307 (150-450) k/uL MPV 7.2 Neutrophils % 92 % Lymphocytes % 3 % Monocytes % 5 % Eosinophils % 1 % Basophils % 0 % Neutrophils # 7.0 (1.3-7.7) k/uL Lymphocytes # 0.2 L (1.0-4.8) k/uL Monocytes # 0.4 (0-1.0) k/uL Eosinophils # 0.0 (0-0.7) k/uL Basophils # 0.0 (0-0.2) k/uL Sodium 133 L (137-145) mmol/L Potassium 4.9 (3.5-5.1) mmol/L Chloride 102 (98-107) mmol/L Carbon Dioxide 25 (22-30) mmol/L Anion Gap 6 mmol/L BUN 18 H (7-17) mg/dL Creatinine 0.74 (0.52-1.04) mg/dL Est GFR (CKD-EPI)AfAm >90 (>60 ml/min/1.73 sqM) Est GFR (CKD-EPI)NonAf 83 (>60 ml/min/1.73 sqM) Glucose 125 H (74-99) mg/dL Calcium 9.8 (8.4-10.2) mg/dL Total Bilirubin 0.6 (0.2-1.3) mg/dL AST 25 (14-36) U/L ALT 26 (4-34) U/L Alkaline Phosphatase 62 (38-126) U/L Total Protein 6.8 (6.3-8.2) g/dL Albumin 3.9 (3.5-5.0) g/dL Influenza Type A (PCR) Not Detected (Not Detectd) Influenza Type B (PCR) Not Detected (Not Detectd) RSV (PCR) Not Detected (Not Detectd) SARS-CoV-2 (PCR) Not Detected (Not Detectd) - EKG Data -: EKG Interpreted by Me EKG Comments: 12-lead Electrocardiogram Interpretation Note EKG was reviewed and interpreted by myself. 12-lead ECG performed at 1433 is interpreted by me as revealing sinus tachycardia at a rate of 107 beats per minute. [place] is normal. [place] interval is 150 ms, QRS duration 76 ms, QTc is 408 ms.. There were no ST or T wave abnormalities to suggest myocardial ischemia or injury. R wave progression across the precordium was satisfactory. By my interpretation this EKG is non-diagnostic for acute ischemia. Disposition Clinical Impression: COPD exacerbation Disposition: ADMITTED IP TO THIS HOSP Condition: Serious
[2021-03-23] MEDS ORDERED: traZODone HCL 50 MG TAB PO PRN (16:43)
[2021-03-23] MEDS ORDERED: MELOXICAM 7.5 MG TAB PO PRN (16:43)
[2021-03-23] MEDS: ATORVASTATIN 10 MG TAB PO SCH (18:10)
[2021-03-23] MEDS: NYSTATIN 100,000 UNIT/ML SUSP 500,000 UNIT/5 ML CUP PO SCH ×2 (18:12→23:07)
[2021-03-23] MEDS: IPRATROPIUM-ALBUTEROL 3 ML NEB INHALATION SCH ×2 (19:29→23:18)
[2021-03-23] MEDS ORDERED: MOMETASONE INHALATION SCH (20:00)
[2021-03-23] MEDS ORDERED: FORMOTEROL INHALATION SCH (20:00)
[2021-03-23] MEDS ORDERED: [UNRECOGNIZED DRUG - OTHER] INHALATION SCH (20:00)
[2021-03-23] MEDS: LATANOPROST 0.005% OPHTH DROPS 2.5 ML BTL BOTH EYES SCH (23:17)
[2021-03-23] MEDS: methylPREDNISolone SOD SUCCI 40 MG/ML 1 ML VIAL IV SCH (23:18)
[2021-03-23] MEDS: HEPARIN SODIUM,PORCINE/PF 5,000 UNIT/0.5 ML SYRINGE SQ SCH (23:18)
[2021-03-24] MEDS: IPRATROPIUM-ALBUTEROL 3 ML NEB INHALATION SCH ×6 (03:44→23:37)
[2021-03-24] MEDS: methylPREDNISolone SOD SUCCI 40 MG/ML 1 ML VIAL IV SCH ×2 (05:31→10:02)
[2021-03-24] MEDS ORDERED: NON FORMULARY DRUG (Tiotropium Bromide [Spiriva] 18 MCG Cap.W.Dev) INHALATION SCH (08:00)
[2021-03-24] MEDS: FORMOTEROL FUMARATE 20 MCG/2 ML NEBU INHALATION SCH ×2 (08:44→19:39)
[2021-03-24] MEDS: BUDESONIDE 1 MG/2 ML NEBU INHALATION SCH ×2 (08:44→19:39)
[2021-03-24] MEDS: NYSTATIN 100,000 UNIT/ML SUSP 500,000 UNIT/5 ML CUP PO SCH ×5 (09:59→21:17)
[2021-03-24] MEDS: CHOLECALCIFEROL 25 MCG (1000 IU) TABLET PO SCH (10:02)
[2021-03-24] MEDS: HEPARIN SODIUM,PORCINE/PF 5,000 UNIT/0.5 ML SYRINGE SQ SCH ×3 (10:02→23:13)
[2021-03-24] MEDS ORDERED: ALPRAZolam 0.5 MG TAB PO PRN (11:51)
[2021-03-24] MEDS: methylPREDNISolone SOD SUCCI 125 MG/2 ML VIAL IV SCH ×3 (12:05→23:12)
[2021-03-24] MEDS: DOXYCYCLINE 100 MG CAP PO SCH ×2 (12:05→21:16)
--- NOTE | 2021-03-24 13:12 | P.CNPUL ---
History of Present Illness Consult date: 03/24/21 Requesting physician: Deonte Nolen Reason for consult: dyspnea Chief complaint: cough, wheezing, shortness of breath History of present illness: This is a 70-year-old white female patient, with known history of COPD, she follows with Dr. Overton in the pulmonary clinic for the same, she has a baseline FEV1 of 35% of predicted, stage III COPD, the patient is on maintenance dose of azithromycin 250 mg on Wednesday schedule as well as maintenance dose prednisone 5 mg for prevention of frequent pulmonary infections and COPD exacerbation. Patient is a former smoker, and has history of glaucoma. Patient came into the emergency department on 03/23/2021 for evaluation of worsening shortness of breath. She recently completed a course of Levaquin for bronchitis last week. She is also on a prednisone taper. She has been taking her breathing treatments. She endorsed a nonproductive congested cough. She had previously required bronchoscopy to help clear the mucous plugs. She denied any fever, denied any chest pain, no hemoptysis, no abdominal pain and nausea vomiting or diarrhea. She was vaccinated for COVID-19. She tested negative for influenza A and B, RSV and COVID-19. Chest x-ray showed no acute lung disease. Blood work showed white blood cell count of 7.6, hemoglobin 15.2, platelet count of 307, patient is leukopenic with a lymphocyte count of 0.2, sodium is 133, the rest of the electrolytes are within normal limits, BUN is 18 creatinine 0.74. Patient has been started on IV Solu-Medrol 60 mg every 6 hours, she is on nebulized bronchodilators, and we will add doxycycline. Review of Systems All systems: negative Constitutional: Denies chills, Denies fever Eyes: denies blurred vision, denies pain Ears, nose, mouth and throat: Denies headache, Denies sore throat Cardiovascular: Denies chest pain, Denies shortness of breath Respiratory: Reports dyspnea, Reports respiratory infections, Denies cough Gastrointestinal: Denies abdominal pain, Denies diarrhea, Denies nausea, Denies vomiting Genitourinary: Denies dysuria, Denies hematuria Musculoskeletal: Denies myalgias Integumentary: Denies pruritus, Denies rash Neurological: Denies numbness, Denies weakness Psychiatric: Denies anxiety, Denies depression Endocrine: Denies fatigue, Denies weight change Past Medical History Past Medical History: COPD, Eye Disorder Additional Past Medical History / Comment(s): Bronchitis, bilateral eyes with increased intraocular pressure-not glaucoma yet, neuralgia R side forhead in past. History of Any Multi-Drug Resistant Organisms: None Reported Past Surgical History: Breast Surgery, Hernia Repair, Orthopedic Surgery Additional Past Surgical History / Comment(s): Bilateral carpal tunnel; bilateral cataract removal with lens, bronchoscopy, R inguinal hernia repair, colonoscopy, benign L breast biopsy. Past Anesthesia/Blood Transfusion Reactions: No Reported Reaction Past Psychological History: No Psychological Hx Reported Smoking Status: Former smoker Past Alcohol Use History: None Reported Past Drug Use History: None Reported - Past Family History Father Family Medical History: COPD Additional Family Medical History / Comment(s): Father in his 50s of COPD. He was a smoker. Mother Family Medical History: CVA/TIA, Hypertension, Pneumonia Additional Family Medical History / Comment(s): Mother fell at age 85 and fractured her hip. Post op she became HTN and had a stroke and then ended up with pneumonia and . Medications and Allergies Home Medications Medication Instructions Recorded Confirmed Type Bimatoprost [Lumigan .01% Ophth 1 drop BOTH EYES HS 10/13/17 03/23/21 History Soln] Mometasone/Formoterol [Dulera 200 2 puff INHALATION RT-BID 10/13/17 03/23/21 History Mcg-5 Mcg Inhaler] Tiotropium [place] [Spiriva] 1 cap INHALATION RT-DAILY 10/13/17 03/23/21 History predniSONE 5 mg PO DIRECTED 09/13/18 03/23/21 History Azithromycin [Zithromax] 250 mg PO MOWEFR 12/18/18 03/23/21 History Albuterol Nebulized [Ventolin 2.5 mg INHALATION RT-Q4H PRN 03/19/21 03/23/21 History Nebulized] Atorvastatin [Lipitor] 10 mg PO W/SUPPER 03/19/21 03/23/21 History Cholecalciferol [Vitamin D3 (25 25 mcg PO DAILY 03/19/21 03/23/21 History Mcg = 1000 Iu)] Meloxicam [Mobic] 15 mg PO DAILY PRN 03/19/21 03/23/21 History Nystatin 100,000 Unit/ml Susp 5 ml PO QID 03/19/21 03/23/21 History [Mycostatin Oral Susp] carBAMazepine 100 mg PO TID PRN 03/19/21 03/23/21 History predniSONE See Taper PO DAILY 03/19/21 03/23/21 History traZODone HCL [Desyrel] 50 mg PO HS PRN 03/19/21 03/23/21 History Allergies Allergy/AdvReac Type Severity Reaction Status Date / Time budesonide [From Symbicort] AdvReac ANXIETY Verified 03/23/21 14:06 formoterol [From Symbicort] AdvReac ANXIETY Verified 03/23/21 14:06 Physical Exam Vitals: Vital Signs Temp Pulse Resp BP Pulse Ox 03/24/21 11:13 115 H 03/24/21 10:58 123 H 03/24/21 10:06 116 H 28 H 159/86 93 L 03/24/21 06:00 98.0 F 105 H 26 H 170/91 96 03/24/21 05:00 118 H 18 170/91 96 03/24/21 04:34 29 H 03/24/21 03:58 106 H 03/24/21 03:45 96 03/23/21 23:21 98 18 179/89 94 L 03/23/21 19:42 107 H 03/23/21 19:29 95 03/23/21 18:12 98 18 166/97 95 03/23/21 15:10 76 03/23/21 15:00 72 03/23/21 14:04 99.1 F 116 H 24 134/98 94 L GENERAL EXAM: Alert, very pleasant, 70-year-old white female, resting on the gurney in the emergency department, currently on 2 L of oxygen with a pulse ox of 96%, patient is tachycardic, she is also dyspnea, in sinus mechanism with a rate of 1:15 to 123 BPM on a monitor, afebrile, mildly wheezy, she is at congested cough HEAD: Normocephalic/atraumatic. EYES: Normal reaction of pupils, equal size. Conjunctiva pink, sclera white. NOSE: Clear with pink turbinates. THROAT: No erythema or exudates. NECK: No masses, no JVD, no thyroid enlargement, no adenopathy. CHEST: No chest wall deformity. Symmetrical expansion. LUNGS: Equal air entry with diffuse wheezes and rhonchi CVS: Regular rate and rhythm, normal S1 and S2, no gallops, no murmurs, no rubs ABDOMEN: Soft, nontender. No hepatosplenomegaly, normal bowel sounds, no guarding or rigidity. EXTREMITIES: No clubbing, no edema, no cyanosis, 2+ pulses and upper and lower extremities. MUSCULOSKELETAL: Muscle strength and tone normal. SPINE: No scoliosis or deformity SKIN: No rashes CENTRAL NERVOUS SYSTEM: Alert and oriented -3. No focal deficits, tone is norm al in all 4 extremities. PSYCHIATRIC: Alert and oriented -3. Appropriate affect. Intact judgment and insight. Results - Laboratory Findings CBC and BMP: 03/23/21 14:52 03/23/21 14:52 Abnormal lab findings: Abnormal Labs 03/23/21 03/23/21 14:52 14:52 Lymphocytes # 0.2 L Sodium 133 L BUN 18 H Glucose 125 H - Diagnostic Findings Chest x-ray: report reviewed, image reviewed Additional studies: EKG reviewed Assessment and Plan Plan: Assessment: #1. Acute exacerbation of chronic obstructive pulmonary disease. Chest x-ray showed no evidence of acute pulmonary process, COVID-19, RSV, influenza A and B were negative. #2. Severe COPD, with baseline FEV1 of 35% predicted, stage III COPD, usually not on home oxygen, on maintenance with prednisone 5 mg daily #3. Recent episode of bronchitis, recently completed Levaquin and prednisone taper on an outpatient basis #4. Chronic suppressive therapy with azithromycin for prevention of frequent exacerbations of COPD #5. Former smoker, currently in remission, quit smoking 12 years ago, carries [id number] smoking history #6. Glaucoma Plan: Continue IV steroids Continue nebulized bronchodilators We'll add doxycycline Continue to follow her clinical course and make further adjustments to her therapy I performed a history & physical examination of the patient and discussed their management with my nurse practitioner, Tracey Vicente. I reviewed the nurse practitioner's note and agree with the documented findings and plan of care. Lung sounds are positive for diffuse wheezes throughout the lung sterling. The findings and the impression was discussed with the patient. I attest to the documentation by the nurse practitioner. Time with Patient: Greater than 30
[2021-03-24] MEDS ORDERED: FLUCONAZOLE 100 MG TAB PO ONE (13:30)
[2021-03-24] MEDS: guaiFENesin 600 MG TABLET.ER PO SCH ×3 (14:32→21:16)
[2021-03-24] MEDS ORDERED: LACTULOSE 20 GM/30 ML CUP PO PRN (16:02)
[2021-03-24] MEDS ORDERED: MAG HYDROX/AL HYDROX/SIMETH 30 ML CUP PO PRN (16:02)
[2021-03-24] MEDS ORDERED: ONDANSETRON 4 MG/2 ML VIAL IVP PRN (16:02)
[2021-03-24] MEDS ORDERED: MELATONIN 3 MG TABLET PO PRN (16:02)
[2021-03-24] MEDS ORDERED: MAGNESIUM HYDROXIDE 2,400 MG/10 ML CUP PO PRN (16:02)
[2021-03-24] MEDS ORDERED: CALCIUM CARBONATE 500 MG CHEWABLE PO PRN (16:02)
--- NOTE | 2021-03-24 16:12 | P.HPIM ---
History of Present Illness H&P Date: 03/24/21 Chief Complaint: Short of breath This is a 70-year-old patient, follows with Dr. Mohan. Greeting Card Writer Dr. Parker. Chronic stable medical conditions include hyperlipidemia,. Patient long-standing COPD. Patient for a month has been struggling with increasing shortness of breath. Has a rather congested cough not able to bring up anything. She's gone through steroids antibiotics in the last [address] Parker. Still wheezing. Denies any fever and chills. Appetite is fair. No change in her bowel pattern. Wheezing is present. Presents to the ER for the same. Review of systems: GEN.: Tired EYES: None HEENT: None NECK: None RESPIRATORY: As above CARDIOVASCULAR: None GASTROINTESTINAL: None GENITOURINARY: None MUSCULOSKELETAL: None LYMPHATICS: None HEMATOLOGICAL: None PSYCHIATRY: None NEUROLOGICAL: None Past medical history to include: COPD, hyperlipidemia Social history: Lives alone. Stop smoking 11 years ago. Smoked for about 31 years. No alcohol Family history: Father in his 50s from COPD was a smoker Physical examination: VITAL SIGNS: 99.1, 116, 24, 134/98, 94% on room air GENERAL: BMI 21.6, sitting up in bed, short of breath. EYES: Pupils equal. Conjunctiva normal. HEENT: External appearance of nose and ears normal, oral cavity grossly normal some white spots in the posterior pharynx. NECK: JVD not raised; masses not palpable. HEART: First and second heart sounds are normal; no edema. LUNGS:[ Respiratory rate increased; decreased breath sounds. ABDOMEN: Soft, nontender, liver spleen not palpable, no masses palpable. PSYCH: Alert and oriented x3; mood and affect normal. NEUROLOGICAL: Cranial nerves grossly intact; no facial asymmetry, power and sensation grossly intact. LYMPHATICS: No lymph nodes palpable in the axilla and neck INVESTIGATIONS, reviewed in the clinical context: WBC 7.6 hemoglobin 15.2 platelets 307 sodium 133 potassium 4.9 BUN 18 creatinine 0.74 Influenza type A, type B, RSV, COVID 19 [PCR]: Not detected EKG tracing personally reviewed by me-sinus tachycardia. P pulmonale, rate 107 Chest x-ray film personally reviewed by me-hyperinflated lung. No obvious infiltrate Assessment and plan: -Acute COPD exacerbation and failed outpatient treatment in a ex-smoker Nebulized bronchodilators, IV steroids, inhaled steroids. Long-acting beta agonist. Consult pulmonary -Acute tracheal bronchitis. Patient not able to expectorate. His other congested. Humidify oxygen. Add Mucinex 600 mg 4 times a day. -Pharyngeal candidiasis Oral Diflucan -Hyperlipidemia Lipitor 10 mg with supper Nebulized bronchitis. IV and inhaled steroids. Mucinex. Humidify oxygen. Diflucan. Consult pulmonary. Care was discussed with the patient. Questions answered. Past Medical History Past Medical History: COPD, Eye Disorder Additional Past Medical History / Comment(s): Bronchitis, bilateral eyes with increased intraocular pressure-not glaucoma yet, neuralgia R side forhead in past. History of Any Multi-Drug Resistant Organisms: None Reported Past Surgical History: Breast Surgery, Hernia Repair, Orthopedic Surgery Additional Past Surgical History / Comment(s): Bilateral carpal tunnel; bilateral cataract removal with lens, bronchoscopy, R inguinal hernia repair, colonoscopy, benign L breast biopsy. Past Anesthesia/Blood Transfusion Reactions: No Reported Reaction Past Psychological History: No Psychological Hx Reported Smoking Status: Former smoker Past Alcohol Use History: None Reported Past Drug Use History: None Reported - Past Family History Father Family Medical History: COPD Additional Family Medical History / Comment(s): Father in his 50s of COPD. He was a smoker. Mother Family Medical History: CVA/TIA, Hypertension, Pneumonia Additional Family Medical History / Comment(s): Mother fell at age 85 and fractured her hip. Post op she became HTN and had a stroke and then ended up with pneumonia and . Medications and Allergies Home Medications Medication Instructions Recorded Confirmed Type Bimatoprost [[place] .01% Ophth 1 drop BOTH EYES HS 10/13/17 03/23/21 History Soln] Mometasone/Formoterol [Dulera 200 2 puff INHALATION RT-BID 10/13/17 03/23/21 History Mcg-5 Mcg Inhaler] Tiotropium [place] [Spiriva] 1 cap INHALATION RT-DAILY 10/13/17 03/23/21 History predniSONE 5 mg PO DIRECTED 09/13/18 03/23/21 History Azithromycin [Zithromax] 250 mg PO MOWEFR 12/18/18 03/23/21 History Albuterol Nebulized [Ventolin 2.5 mg INHALATION RT-Q4H PRN 03/19/21 03/23/21 History Nebulized] Atorvastatin [Lipitor] 10 mg PO W/SUPPER 03/19/21 03/23/21 History Cholecalciferol [Vitamin D3 (25 25 mcg PO DAILY 03/19/21 03/23/21 History Mcg = 1000 Iu)] Meloxicam [Mobic] 15 mg PO DAILY PRN 03/19/21 03/23/21 History Nystatin 100,000 Unit/ml Susp 5 ml PO QID 03/19/21 03/23/21 History [Mycostatin Oral Susp] carBAMazepine 100 mg PO TID PRN 03/19/21 03/23/21 History predniSONE See Taper PO DAILY 03/19/21 03/23/21 History traZODone HCL [Desyrel] 50 mg PO HS PRN 03/19/21 03/23/21 History Allergies Allergy/AdvReac Type Severity Reaction Status Date / Time budesonide [From Symbicort] AdvReac ANXIETY Verified 03/23/21 14:06 formoterol [From Symbicort] AdvReac ANXIETY Verified 03/23/21 14:06 Physical Exam Vitals: Vital Signs Temp Pulse Resp BP Pulse Ox 03/24/21 10:06 116 H 28 H 159/86 93 L 03/24/21 06:00 98.0 F 105 H 26 H 170/91 96 03/24/21 05:00 118 H 18 170/91 96 03/24/21 04:34 29 H 03/24/21 03:58 106 H 03/24/21 03:45 96 03/23/21 23:21 98 18 179/89 94 L 03/23/21 19:42 107 H 03/23/21 19:29 95 03/23/21 18:12 98 18 166/97 95 03/23/21 15:10 76 03/23/21 15:00 72 03/23/21 14:04 99.1 F 116 H 24 134/98 94 L Results CBC & Chem 7: 03/23/21 14:52 03/23/21 14:52 Labs: Abnormal Lab Results - Last 24 Hours (Table) 03/23/21 03/23/21 Range/Units 14:52 14:52 Lymphocytes # 0.2 L (1.0-4.8) k/uL Sodium 133 L (137-145) mmol/L BUN 18 H (7-17) mg/dL Glucose 125 H (74-99) mg/dL
[2021-03-24] MEDS: ATORVASTATIN 10 MG TAB PO SCH (17:37)
[2021-03-24 17:45] LABS: Glucose,Whole Blood 151 mg/dL (75-99)
[2021-03-24] MEDS: INSULIN ASPART (NovoLOG) 100 UNIT/ML VIAL SQ SCH ×2 (17:51→21:16)
[2021-03-24 21:10] LABS: Glucose,Whole Blood 158 mg/dL (75-99)
[2021-03-24 21:15] LABS: Magnesium 2.3 mg/dL (1.6-2.3); Potassium 4.6 mmol/L (3.5-5.1)
[2021-03-24] MEDS: LATANOPROST 0.005% OPHTH DROPS 2.5 ML BTL BOTH EYES SCH (21:17)
[2021-03-25] MEDS: IPRATROPIUM-ALBUTEROL 3 ML NEB INHALATION SCH ×5 (04:01→19:53)
[2021-03-25] MEDS: methylPREDNISolone SOD SUCCI 125 MG/2 ML VIAL IV SCH ×3 (05:42→17:49)
[2021-03-25] MEDS: BUDESONIDE 1 MG/2 ML NEBU INHALATION SCH ×2 (07:14→19:53)
[2021-03-25] MEDS: FORMOTEROL FUMARATE 20 MCG/2 ML NEBU INHALATION SCH ×2 (07:14→19:53)
[2021-03-25 07:25] LABS: Glucose,Whole Blood 224 mg/dL (75-99)
[2021-03-25] MEDS: INSULIN ASPART (NovoLOG) 100 UNIT/ML VIAL SQ SCH ×4 (08:24→20:19)
[2021-03-25] MEDS: DOXYCYCLINE 100 MG CAP PO SCH ×2 (08:52→21:14)
[2021-03-25] MEDS: CHOLECALCIFEROL 25 MCG (1000 IU) TABLET PO SCH (08:52)
[2021-03-25] MEDS: guaiFENesin 600 MG TABLET.ER PO SCH ×4 (08:54→21:14)
[2021-03-25] MEDS: FLUCONAZOLE 100 MG TAB PO SCH (08:54)
[2021-03-25] MEDS: NYSTATIN 100,000 UNIT/ML SUSP 500,000 UNIT/5 ML CUP PO SCH ×4 (08:54→21:14)
[2021-03-25] MEDS: HEPARIN SODIUM,PORCINE/PF 5,000 UNIT/0.5 ML SYRINGE SQ SCH ×2 (09:10→17:50)
--- NOTE | 2021-03-25 10:49 | P.PN ---
Subjective Progress Note Date: 03/25/21 Principal diagnosis: COPD exacerbation This is a 70-year-old white female patient, with known history of COPD, she follows with Dr. Overton in the pulmonary clinic for the same, she has a baseline FEV1 of 35% of predicted, stage III COPD, the patient is on maintenance dose of azithromycin 250 mg on Wednesday schedule as well as maintenance dose prednisone 5 mg for prevention of frequent pulmonary infections and COPD exacerbation. Patient is a former smoker, and has history of glaucoma. Patient came into the emergency department on 03/23/2021 for evaluation of worsening shortness of breath. She recently completed a course of Levaquin for bronchitis last week. She is also on a prednisone taper. She has been taking her breathing treatments. She endorsed a nonproductive congested cough. She had previously required bronchoscopy to help clear the mucous plugs. She denied any fever, denied any chest pain, no hemoptysis, no abdominal pain and nausea v omiting or diarrhea. She was vaccinated for COVID-19. She tested negative for influenza A and B, RSV and COVID-19. Chest x-ray showed no acute lung disease. Blood work showed white blood cell count of 7.6, hemoglobin 15.2, platelet count of 307, patient is leukopenic with a lymphocyte count of 0.2, sodium is 133, the rest of the electrolytes are within normal limits, BUN is 18 creatinine 0.74. Patient has been started on IV Solu-Medrol 60 mg every 6 hours, she is on nebulized bronchodilators, and we will add doxycycline. The patient is seen today 03/25/2021 in follow-up on the regular medical floor. She is currently sitting up in bed. Awake and alert in no acute distress. Breathing a bit easier today compared to yesterday. Not quite back to her baseline. She is maintaining O2 saturations in the 90s on room air. She's been afebrile. Glucose 224. She is continued on DuoNeb inhalations, Pulmicort and Perforomist inhalations, IV Solu-Medrol. Empiric antibiotics in the form of doxycycline. She is on Diflucan as well. Objective - Vital Signs Vital signs: Vital Signs Temp 97.8 F 03/25/21 06:45 Pulse 112 H 03/25/21 07:42 Resp 16 03/25/21 06:45 BP 169/95 03/25/21 06:45 Pulse Ox 93 L 03/25/21 04:47 Intake & Output 03/24/21 03/25/21 03/25/21 18:59 06:59 18:59 Other: Voiding Method Toilet # Voids 2 - Exam GENERAL EXAM: Alert, active, pleasant 70-year-old female patient, on room air, fairly comfortable in no apparent distress. HEAD: Normocephalic. EYES: Normal reaction of pupils, equal size. NOSE: Clear with pink turbinates. THROAT: No erythema or exudates. NECK: No masses, no JVD. CHEST: No chest wall deformity. LUNGS: Equal air entry with bilateral end expiratory wheeze, diminished. CVS: S1 and S2 normal with no audible murmur, regular rhythm. ABDOMEN: No hepatosplenomegaly, normal bowel sounds, no guarding or rigidity. SPINE: No scoliosis or deformity SKIN: No rashes CENTRAL NERVOUS SYSTEM: No focal deficits, tone is normal in all 4 extremities. EXTREMITIES: There is no peripheral edema. No clubbing, no cyanosis. Peripheral pulses are intact. - Labs CBC & Chem 7: 03/23/21 14:52 03/24/21 20:53 Labs: Abnormal Lab Results - Last 24 Hours (Table) 03/24/21 03/24/21 03/25/21 Range/Units 17:31 21:08 07:23 POC Glucose (mg/dL) 151 H 158 H 224 H (75-99) mg/dL Assessment and Plan Assessment: 1 Acute exacerbation of chronic obstructive pulmonary disease. Chest x-ray showed no evidence of acute pulmonary process, COVID-19, RSV, influenza A and B were negative. 2 Severe COPD, with baseline FEV1 of 35% predicted, stage III COPD, usually not on home oxygen, on maintenance with prednisone 5 mg daily 3 Recent episode of bronchitis, recently completed Levaquin and prednisone t aper on an outpatient basis 4 Chronic suppressive therapy with azithromycin for prevention of frequent exacerbations of COPD 5 Former smoker, currently in remission, quit smoking 12 years ago, carries [id number] smoking history 6 Glaucoma Plan: The patient was seen and evaluated by Dr. Parker Continue the current treatment plan Probable discharge in the a.m. We will continue to follow I, the cosigning physician, performed a history & physical examination of the patient. Lungs sounds with bilateral end expiratory wheeze, diminished. Maintaining good O2 saturations in the 90s on room air. I discussed the assessment and plan of care with my nurse practitioner, Francisca Madden. I attest to the above note as dictated by her.
[2021-03-25 12:06] LABS: Glucose,Whole Blood 113 mg/dL (75-99)
[2021-03-25 17:36] LABS: Glucose,Whole Blood 134 mg/dL (75-99)
[2021-03-25] MEDS: ATORVASTATIN 10 MG TAB PO SCH (17:49)
--- NOTE | 2021-03-25 18:09 | P.PN ---
Progress Note - Text Progress Note Date: 03/25/21 Chief Complaint: Short of breath This is a 70-year-old patient, follows with Dr. Mohan. [employer] Dr. Parker. Chronic stable medical conditions include hyperlipidemia,. Patient long-standing COPD. Patient for a month has been struggling with increasing shortness of breath. Has a rather congested cough not able to bring up anything. She's gone through steroids antibiotics in the last [address] Parker. Still wheezing. Denies any fever and chills. Appetite is fair. No change in her bowel pattern. Wheezing is present. Presents to the ER for the same. Admitted with COPD exacerbation, acute tracheal bronchitis, oropharyngeal candidiasis. Started on steroids, Mucinex, Diflucan. March 25: Some improvement in breathing. Bringing up some phlegm. Thick. Had about 75% of her lunch. Sitting up. Review of systems: Was done for constitutional, cardiovascular, GI, pulmonary. relevant finding as above Active Medications Acetaminophen (Acetaminophen Tab 325 Mg Tab) 650 mg PO Q6HR PRN PRN Reason: Mild Pain or Fever > 100.5 Al Hydroxide/Mg Hydroxide (Mag Hydrox/Al Hydrox/Simeth 30 Ml Cup) 15 ml PO Q6HR PRN PRN Reason: Indigestion Albuterol/Ipratropium (Ipratropium-Albuterol 3 Ml Neb) 3 ml INHALATION RT-Q4H S Last Admin: 03/25/21 15:13 Dose: 3 ml Documented by: Alprazolam (Alprazolam 0.5 Mg Tab) 0.5 mg PO TID PRN PRN Reason: Anxiety Atorvastatin Calcium (Atorvastatin 10 Mg Tab) 10 mg PO W/SUPPER [facility] Last Admin: 03/25/21 17:49 Dose: 10 mg Documented by: Budesonide (Budesonide 1 Mg/2 Ml Nebu) 1 mg INHALATION RT-BID [facility] Last Admin: 03/25/21 07:14 Dose: 1 mg Documented by: Calcium Carbonate/Glycine (Calcium Carbonate 500 Mg Chewable) 1,000 mg PO Q4HR PRN PRN Reason: Dyspepsia Carbamazepine (Carbamazepine Chew 100 Mg Chew) 100 mg PO TID PRN PRN Reason: SEZIURE Cholecalciferol (Cholecalciferol 25 Mcg (1000 Iu) Tablet) 25 mcg PO DAILY [facility] Last Admin: 03/25/21 08:52 Dose: 25 mcg Documented by: Doxycycline Monohydrate (Doxycycline 100 Mg Cap) 100 mg PO BID [facility] Last Admin: 03/25/21 08:52 Dose: 100 mg Documented by: Fluconazole (Fluconazole 100 Mg Tab) 100 mg PO DAILY [facility] Last Admin: 03/25/21 08:54 Dose: 100 mg Documented by: Formoterol Fumarate (Formoterol Fumarate 20 Mcg/2 Ml Nebu) 20 mcg INHALATION RT-BID [facility] Last Admin: 03/25/21 07:14 Dose: 20 mcg Documented by: Guaifenesin (Guaifenesin 600 Mg Tablet.Er) 600 mg PO QID [facility] Last Admin: 03/25/21 17:49 Dose: 600 mg Documented by: Heparin Sodium (Porcine) (Heparin Sodium,Porcine/Pf 5,000 Unit/0.5 Ml Syringe) 5,000 unit SQ Q8HR [facility] Last Admin: 03/25/21 17:50 Dose: 5,000 unit Documented by: Insulin Aspart (Insulin Aspart (Novolog) 100 Unit/Ml Vial) 0 unit SQ [facility]; Protocol Last Admin: 03/25/21 17:50 Dose: 1 unit Documented by: Lactulose (Lactulose 20 Gm/30 Ml Cup) 20 gm PO DAILY PRN PRN Reason: Constipation Latanoprost (Latanoprost 0.005% Ophth Drops 2.5 Ml Btl) 1 drops BOTH EYES HS [facility] Last Admin: 03/24/21 21:17 Dose: 1 drops Documented by: Magnesium Hydroxide (Magnesium Hydroxide 2,400 Mg/10 Ml Cup) 2,400 mg PO DAILY PRN PRN Reason: Constipation Melatonin (Melatonin 3 Mg Tablet) 3 mg PO HS PRN PRN Reason: Insomnia Meloxicam (Meloxicam 7.5 Mg Tab) 15 mg PO DAILY PRN PRN Reason: Pain Methylprednisolone Sodium Succinate (Methylprednisolone Sod Succi 125 Mg/2 Ml Vial) 60 mg IV Q6H [facility] Last Admin: 03/25/21 17:49 Dose: 60 mg Documented by: Naloxone HCl (Naloxone 0.4 Mg/Ml 1 Ml Vial) 0.2 mg IV Q2M PRN PRN Reason: Opioid Reversal Nystatin (Nystatin 100,000 Unit/Ml Susp 500,000 Unit/5 Ml Cup) 500,000 unit PO QID [facility] Last Admin: 03/25/21 16:39 Dose: Not Given Documented by: Ondansetron HCl (Ondansetron 4 Mg/2 Ml Vial) 4 mg IVP Q8HR PRN PRN Reason: Nausea And Vomiting Trazodone HCl (Trazodone Hcl 50 Mg Tab) 50 mg PO HS PRN PRN Reason: Insomnia Past medical history to include: COPD, hyperlipidemia Social history: Lives alone. Stop smoking 11 years ago. Smoked for about 31 years. No alcohol Family history: Father in his 50s from COPD was a smoker Physical examination: VITAL SIGNS: 97.9, 107, 19, 161-84, 95% room air GENERAL: Reclining in bed, less short of breath EYES: Pupils equal. Conjunctiva normal. HEENT: External appearance of nose and ears normal, oral cavity grossly normal some white spots in the posterior pharynx. NECK: JVD not raised; masses not palpable. HEART: First and second heart sounds are normal; no edema. LUNGS:[ Respiratory rate increased; decreased breath sounds. ABDOMEN: Soft, nontender, liver spleen not palpable, no masses palpable. PSYCH: Alert and oriented x3; mood and affect normal. INVESTIGATIONS, reviewed in the clinical context: WBC 7.6 hemoglobin 15.2 platelets 307 sodium 133 potassium 4.9 BUN 18 creatinine 0.74 Influenza type A, type B, RSV, COVID 19 [PCR]: Not detected EKG tracing personally reviewed by me-sinus tachycardia. P pulmonale, rate 107 Chest x-ray film personally reviewed by me-hyperinflated lung. No obvious infiltrate Assessment and plan: -Acute COPD exacerbation and failed outpatient treatment in a ex-smoker Nebulized bronchodilators, IV steroids, inhaled steroids. Long-acting beta agonist. Consult pulmonary -Acute tracheal bronchitis. Patient not able to expectorate. His other congested. Humidify oxygen. Mucinex 600 mg 4 times a day. -Pharyngeal candidiasis Oral Diflucan -Hyperlipidemia Lipitor 10 mg with supper Nebulized bronchitis. IV and inhaled steroids. Mucinex. Humidify oxygen. Diflucan. Add flutter valve. Discussed with patient
[2021-03-25 20:12] LABS: Glucose,Whole Blood 121 mg/dL (75-99)
[2021-03-25] MEDS: LATANOPROST 0.005% OPHTH DROPS 2.5 ML BTL BOTH EYES SCH (21:14)
[2021-03-26] MEDS: IPRATROPIUM-ALBUTEROL 3 ML NEB INHALATION SCH ×6 (00:34→20:56)
[2021-03-26] MEDS: methylPREDNISolone SOD SUCCI 125 MG/2 ML VIAL IV SCH ×2 (06:13)
[2021-03-26 07:14] LABS: Glucose,Whole Blood 123 mg/dL (75-99)
[2021-03-26] MEDS: INSULIN ASPART (NovoLOG) 100 UNIT/ML VIAL SQ SCH ×4 (07:49→20:21)
[2021-03-26] MEDS: HEPARIN SODIUM,PORCINE/PF 5,000 UNIT/0.5 ML SYRINGE SQ SCH ×4 (08:07→23:52)
[2021-03-26] MEDS: FLUCONAZOLE 100 MG TAB PO SCH (08:08)
[2021-03-26] MEDS: CHOLECALCIFEROL 25 MCG (1000 IU) TABLET PO SCH (08:08)
[2021-03-26] MEDS: DOXYCYCLINE 100 MG CAP PO SCH ×2 (08:08→20:21)
[2021-03-26] MEDS: NYSTATIN 100,000 UNIT/ML SUSP 500,000 UNIT/5 ML CUP PO SCH ×4 (08:08→20:22)
[2021-03-26] MEDS: guaiFENesin 600 MG TABLET.ER PO SCH ×4 (08:08→20:22)
[2021-03-26] MEDS: BUDESONIDE 1 MG/2 ML NEBU INHALATION SCH ×2 (08:54→21:56)
[2021-03-26] MEDS: FORMOTEROL FUMARATE 20 MCG/2 ML NEBU INHALATION SCH ×2 (08:54→21:56)
--- NOTE | 2021-03-26 12:21 | P.PN ---
Subjective Progress Note Date: 03/26/21 Principal diagnosis: COPD exacerbation This is a 70-year-old white female patient, with known history of COPD, she follows with Dr. Overton in the pulmonary clinic for the same, she has a baseline FEV1 of 35% of predicted, stage III COPD, the patient is on maintenance dose of azithromycin 250 mg on Wednesday schedule as well as maintenance dose prednisone 5 mg for prevention of frequent pulmonary infections and COPD exacerbation. Patient is a former smoker, and has history of glaucoma. Patient came into the emergency department on 03/23/2021 for evaluation of worsening shortness of breath. She recently completed a course of Levaquin for bronchitis last week. She is also on a prednisone taper. She has been taking her breathing treatments. She endorsed a nonproductive congested cough. She had previously required bronchoscopy to help clear the mucous plugs. She denied any fever, denied any chest pain, no hemoptysis, no abdominal pain and nausea v omiting or diarrhea. She was vaccinated for COVID-19. She tested negative for influenza A and B, RSV and COVID-19. Chest x-ray showed no acute lung disease. Blood work showed white blood cell count of 7.6, hemoglobin 15.2, platelet count of 307, patient is leukopenic with a lymphocyte count of 0.2, sodium is 133, the rest of the electrolytes are within normal limits, BUN is 18 creatinine 0.74. Patient has been started on IV Solu-Medrol 60 mg every 6 hours, she is on nebulized bronchodilators, and we will add doxycycline. The patient is seen today 03/25/2021 in follow-up on the regular medical floor. She is currently sitting up in bed. Awake and alert in no acute distress. Breathing a bit easier today compared to yesterday. Not quite back to her baseline. She is maintaining O2 saturations in the 90s on room air. She's been afebrile. Glucose 224. She is continued on DuoNeb inhalations, Pulmicort and Perforomist inhalations, IV Solu-Medrol. Empiric antibiotics in the form of doxycycline. She is on Diflucan as well. The patient is seen today 03/26/2021 in follow-up on the regular medical floor. She is currently sitting up in bed. Awake and alert in no acute distress. States she is still not back to her baseline. Still with a loose nonproductive cough. Dyspnea on exertion. Maintaining O2 saturations in the low 90s on room air. Placed on 2 L nasal cannula. She's afebrile. Blood glucose 123. She is continued on DuoNeb inhalations, Pulmicort and Perforomist inhalations, IV Solu- Medrol. Empiric antibiotics in the form of doxycycline. Objective - Vital Signs Vital signs: Vital Signs Temp 97.9 F 03/26/21 04:47 Pulse 97 03/26/21 12:02 Resp 16 03/26/21 04:47 BP 166/81 03/26/21 04:47 Pulse Ox 92 L 03/26/21 04:47 Intake & Output 03/25/21 03/26/21 03/26/21 18:59 06:59 18:59 Intake Total 590 Balance 590 Intake: Oral 590 Other: Voiding Method Toilet # Voids 2 2 - Exam GENERAL EXAM: Alert, active, pleasant 70-year-old female patient, on 2 L nasal cannula, fairly comfortable in no apparent distress. HEAD: Normocephalic. EYES: Normal reaction of pupils, equal size. NOSE: Clear with pink turbinates. THROAT: No erythema or exudates. NECK: No masses, no JVD. CHEST: No chest wall deformity. LUNGS: Equal air entry with bilateral end expiratory wheeze, diminished. CVS: S1 and S2 normal with no audible murmur, regular rhythm. ABDOMEN: No hepatosplenomegaly, normal bowel sounds, no guarding or rigidity. SPINE: No scoliosis or deformity SKIN: No rashes CENTRAL NERVOUS SYSTEM: No focal deficits, tone is normal in all 4 extremities. EXTREMITIES: There is no peripheral edema. No clubbing, no cyanosis. Peripheral pulses are intact. - Labs CBC & Chem 7: 03/23/21 14:52 03/24/21 20:53 Labs: Abnormal Lab Results - Last 24 Hours (Table) 03/25/21 03/25/21 03/26/21 Range/Units 17:34 20:11 07:13 POC Glucose (mg/dL) 134 H 121 H 123 H (75-99) mg/dL Assessment and Plan Assessment: 1 Acute exacerbation of chronic obstructive pulmonary disease. Chest x-ray showed no evidence of acute pulmonary process, COVID-19, RSV, influenza A and B were negative. 2 Severe COPD, with baseline FEV1 of 35% predicted, stage III COPD, usually not on home oxygen, on maintenance with prednisone 5 mg daily 3 Recent episode of bronchitis, recently completed Levaquin and prednisone taper on an outpatient basis 4 Chronic suppressive therapy with azithromycin for prevention of frequent exacerbations of COPD 5 Former smoker, currently in remission, quit smoking 12 years ago, carries [id number] smoking history 6 Glaucoma Plan: The patient was seen and evaluated by Dr. Parker Patient has been slow to progress If no improvement tomorrow we'll plan for bronchoscopy on 03/28/2021 Continue the current treatment plan for now We will continue to follow I, the cosigning physician, performed a history & physical examination of the patient. Lungs sounds with bilateral end expiratory wheeze, diminished. Maintaining good O2 saturations in the 90s on 2 L/m per nasal cannula. I discussed the assessment and plan of care with my nurse practitioner, Francisca Madden. I attest to the above note as dictated by her.
[2021-03-26 12:25] LABS: Glucose,Whole Blood 113 mg/dL (75-99)
[2021-03-26 17:40] LABS: Glucose,Whole Blood 113 mg/dL (75-99)
[2021-03-26] MEDS: methylPREDNISolone SOD SUCCI 40 MG/ML 1 ML VIAL IV SCH ×2 (17:44→23:52)
[2021-03-26] MEDS: ATORVASTATIN 10 MG TAB PO SCH (17:59)
--- NOTE | 2021-03-26 18:11 | P.PN ---
Progress Note - Text Progress Note Date: 03/26/21 Chief Complaint: Short of breath This is a 70-year-old patient, follows with Dr. Mohan. [employer] Dr. Parker. Chronic stable medical conditions include hyperlipidemia,. Patient long-standing COPD. Patient for a month has been struggling with increasing shortness of breath. Has a rather congested cough not able to bring up anything. She's gone through steroids antibiotics in the last [address] Parker. Still wheezing. Denies any fever and chills. Appetite is fair. No change in her bowel pattern. Wheezing is present. Presents to the ER for the same. Admitted with COPD exacerbation, acute tracheal bronchitis, oropharyngeal candidiasis. Started on steroids, Mucinex, Diflucan. March 25: Some improvement in breathing. Bringing up some phlegm. Thick. Had about 75% of her lunch. Sitting up. March 26: Patient still congestive the chest. Not able to bring up much phlegm. Bronchitis steroids. Mucinex. Humidified oxygen. Discussed with the patient patient will benefit from bronchial lavage. Review of systems: Was done for constitutional, cardiovascular, GI, pulmonary. relevant finding as above Active Medications Acetaminophen (Acetaminophen Tab 325 Mg Tab) 650 mg PO Q6HR PRN PRN Reason: Mild Pain or Fever > 100.5 Al Hydroxide/Mg Hydroxide (Mag Hydrox/Al Hydrox/Simeth 30 Ml Cup) 15 ml PO Q6HR PRN PRN Reason: Indigestion Albuterol/Ipratropium (Ipratropium-Albuterol 3 Ml Neb) 3 ml INHALATION RT-Q4H [facility] Last Admin: 03/26/21 17:00 Dose: 3 ml Documented by: Alprazolam (Alprazolam 0.5 Mg Tab) 0.5 mg PO TID PRN PRN Reason: Anxiety Atorvastatin Calcium (Atorvastatin 10 Mg Tab) 10 mg PO W/SUPPER [facility] Last Admin: 03/26/21 17:59 Dose: 10 mg Documented by: Budesonide (Budesonide 1 Mg/2 Ml Nebu) 1 mg INHALATION RT-BID [facility] Last Admin: 03/26/21 08:54 Dose: 1 mg Documented by: Calcium Carbonate/Glycine (Calcium Carbonate 500 Mg Chewable) 1,000 mg PO Q4HR PRN PRN Reason: Dyspepsia Carbamazepine (Carbamazepine Chew 100 Mg Chew) 100 mg PO TID PRN PRN Reason: SEZIURE Cholecalciferol (Cholecalciferol 25 Mcg (1000 Iu) Tablet) 25 mcg PO DAILY [facility] Last Admin: 03/26/21 08:08 Dose: 25 mcg Documented by: Doxycycline Monohydrate (Doxycycline 100 Mg Cap) 100 mg PO BID [facility] Last Admin: 03/26/21 08:08 Dose: 100 mg Documented by: Fluconazole (Fluconazole 100 Mg Tab) 100 mg PO DAILY [facility] Last Admin: 03/26/21 08:08 Dose: 100 mg Documented by: Formoterol Fumarate (Formoterol Fumarate 20 Mcg/2 Ml Nebu) 20 mcg INHALATION RT-BID [facility] Last Admin: 03/26/21 08:54 Dose: 20 mcg Documented by: Guaifenesin (Guaifenesin 600 Mg Tablet.Er) 600 mg PO QID [facility] Last Admin: 03/26/21 17:59 Dose: 600 mg Documented by: Heparin Sodium (Porcine) (Heparin Sodium,Porcine/Pf 5,000 Unit/0.5 Ml Syringe) 5,000 unit SQ Q8HR [facility] Last Admin: 03/26/21 17:43 Dose: 5,000 unit Documented by: Insulin Aspart (Insulin Aspart (Novolog) 100 Unit/Ml Vial) 0 unit SQ [facility]; Protocol Last Admin: 03/26/21 17:42 Dose: Not Given Documented by: Lactulose (Lactulose 20 Gm/30 Ml Cup) 20 gm PO DAILY PRN PRN Reason: Constipation Latanoprost (Latanoprost 0.005% Ophth Drops 2.5 Ml Btl) 1 drops BOTH EYES HS [facility] Last Admin: 03/25/21 21:14 Dose: 1 drops Documented by: Magnesium Hydroxide (Magnesium Hydroxide 2,400 Mg/10 Ml Cup) 2,400 mg PO DAILY PRN PRN Reason: Constipation Melatonin (Melatonin 3 Mg Tablet) 3 mg PO HS PRN PRN Reason: Insomnia Meloxicam (Meloxicam 7.5 Mg Tab) 15 mg PO DAILY PRN PRN Reason: Pain Methylprednisolone Sodium Succinate (Methylprednisolone Sod Succi 40 Mg/Ml 1 Ml Vial) 40 mg IV Q8HR [facility] Last Admin: 03/26/21 17:44 Dose: 40 mg Documented by: Naloxone HCl (Naloxone 0.4 Mg/Ml 1 Ml Vial) 0.2 mg IV Q2M PRN PRN Reason: Opioid Reversal Nystatin (Nystatin 100,000 Unit/Ml Susp 500,000 Unit/5 Ml Cup) 500,000 unit PO QID [facility] Last Admin: 03/26/21 15:05 Dose: Not Given Documented by: Ondansetron HCl (Ondansetron 4 Mg/2 Ml Vial) 4 mg IVP Q8HR PRN PRN Reason: Nausea And Vomiting Trazodone HCl (Trazodone Hcl 50 Mg Tab) 50 mg PO HS PRN PRN Reason: Insomnia Past medical history to include: COPD, hyperlipidemia Social history: Lives alone. Stop smoking 11 years ago. Smoked for about 31 years. No alcohol Family history: Father in his 50s from COPD was a smoker Physical examination: VITAL SIGNS: 97.9, 107, 19, 161-84, 95% room air GENERAL: Reclining in bed, less short of breath EYES: Pupils equal. Conjunctiva normal. HEENT: External appearance of nose and ears normal, oral cavity grossly normal some white spots in the posterior pharynx. NECK: JVD not raised; masses not palpable. HEART: First and second heart sounds are normal; no edema. LUNGS:[ Respiratory rate increased; decreased breath sounds. ABDOMEN: Soft, nontender, liver spleen not palpable, no masses palpable. PSYCH: Alert and oriented x3; mood and affect normal. INVESTIGATIONS, reviewed in the clinical context: WBC 7.6 hemoglobin 15.2 platelets 307 sodium 133 potassium 4.9 BUN 18 creatinine 0.74 Influenza type A, type B, RSV, COVID 19 [PCR]: Not detected EKG tracing personally reviewed by me-sinus tachycardia. P pulmonale, rate 107 Chest x-ray film personally reviewed by me-hyperinflated lung. No obvious infiltrate Assessment and plan: -Acute COPD exacerbation and failed outpatient treatment in a ex-smoker Nebulized bronchodilators, IV steroids, inhaled steroids. Long-acting beta agonist. Consult pulmonary -Acute severe tracheal bronchitis. Patient not able to expectorate. Humidify oxygen. Mucinex 600 mg 4 times a day. Patient will benefit from bronchial lavage -Pharyngeal candidiasis Oral Diflucan -Hyperlipidemia Lipitor 10 mg with supper Nebulized bronchitis. Cutback IV steroids. Continue other medications including Mucinex. Discussed with the patient. Patient will benefit from bronchial lavage
[2021-03-26 20:16] LABS: Glucose,Whole Blood 206 mg/dL (75-99)
[2021-03-26] MEDS: LATANOPROST 0.005% OPHTH DROPS 2.5 ML BTL BOTH EYES SCH (20:21)
[2021-03-27] MEDS: IPRATROPIUM-ALBUTEROL 3 ML NEB INHALATION SCH ×5 (01:21→20:57)
[2021-03-27 07:13] LABS: Glucose,Whole Blood 131 mg/dL (75-99)
[2021-03-27] MEDS: INSULIN ASPART (NovoLOG) 100 UNIT/ML VIAL SQ SCH ×4 (07:19→21:03)
[2021-03-27] MEDS: BUDESONIDE 1 MG/2 ML NEBU INHALATION SCH ×2 (09:09→20:57)
[2021-03-27] MEDS: FORMOTEROL FUMARATE 20 MCG/2 ML NEBU INHALATION SCH ×2 (09:09→20:57)
[2021-03-27] MEDS: HEPARIN SODIUM,PORCINE/PF 5,000 UNIT/0.5 ML SYRINGE SQ SCH ×3 (09:33→23:26)
[2021-03-27] MEDS: methylPREDNISolone SOD SUCCI 40 MG/ML 1 ML VIAL IV SCH ×3 (09:33→23:26)
[2021-03-27] MEDS: CHOLECALCIFEROL 25 MCG (1000 IU) TABLET PO SCH (09:38)
[2021-03-27] MEDS: guaiFENesin 600 MG TABLET.ER PO SCH ×4 (09:38→21:03)
[2021-03-27] MEDS: DOXYCYCLINE 100 MG CAP PO SCH ×2 (09:39→21:03)
[2021-03-27] MEDS: FLUCONAZOLE 100 MG TAB PO SCH (09:39)
[2021-03-27] MEDS: NYSTATIN 100,000 UNIT/ML SUSP 500,000 UNIT/5 ML CUP PO SCH ×4 (09:41→20:26)
[2021-03-27 11:37] LABS: Glucose,Whole Blood 128 mg/dL (75-99)
--- NOTE | 2021-03-27 12:12 | P.PN ---
Subjective Progress Note Date: 03/27/21 Principal diagnosis: COPD exacerbation This is a 70-year-old white female patient, with known history of COPD, she follows with Dr. Overton in the pulmonary clinic for the same, she has a baseline FEV1 of 35% of predicted, stage III COPD, the patient is on maintenance dose of azithromycin 250 mg on Wednesday schedule as well as maintenance dose prednisone 5 mg for prevention of frequent pulmonary infections and COPD exacerbation. Patient is a former smoker, and has history of glaucoma. Patient came into the emergency department on 03/23/2021 for evaluation of worsening shortness of breath. She recently completed a course of Levaquin for bronchitis last week. She is also on a prednisone taper. She has been taking her breathing treatments. She endorsed a nonproductive congested cough. She had previously required bronchoscopy to help clear the mucous plugs. She denied any fever, denied any chest pain, no hemoptysis, no abdominal pain and nausea v omiting or diarrhea. She was vaccinated for COVID-19. She tested negative for influenza A and B, RSV and COVID-19. Chest x-ray showed no acute lung disease. Blood work showed white blood cell count of 7.6, hemoglobin 15.2, platelet count of 307, patient is leukopenic with a lymphocyte count of 0.2, sodium is 133, the rest of the electrolytes are within normal limits, BUN is 18 creatinine 0.74. Patient has been started on IV Solu-Medrol 60 mg every 6 hours, she is on nebulized bronchodilators, and we will add doxycycline. The patient is seen today 03/25/2021 in follow-up on the regular medical floor. She is currently sitting up in bed. Awake and alert in no acute distress. Breathing a bit easier today compared to yesterday. Not quite back to her baseline. She is maintaining O2 saturations in the 90s on room air. She's been afebrile. Glucose 224. She is continued on DuoNeb inhalations, Pulmicort and Perforomist inhalations, IV Solu-Medrol. Empiric antibiotics in the form of doxycycline. She is on Diflucan as well. The patient is seen today 03/26/2021 in follow-up on the regular medical floor. She is currently sitting up in bed. Awake and alert in no acute distress. States she is still not back to her baseline. Still with a loose nonproductive cough. Dyspnea on exertion. Maintaining O2 saturations in the low 90s on room air. Placed on 2 L nasal cannula. She's afebrile. Blood glucose 123. She is continued on DuoNeb inhalations, Pulmicort and Perforomist inhalations, IV Solu- Medrol. Empiric antibiotics in the form of doxycycline. The patient is seen today 03/27/2021 in follow-up on the regular medical floor. She is currently sitting up in a chair at the bedside. Awake and alert in no acute distress. She states she is still not back to her baseline. Loose cough, congestion shortness of breath. Maintaining O2 saturations up to 99% on 2 L/m per nasal cannula. She's been afebrile. Hemodynamically stable. Blood glucose 128. She is continued on DuoNeb inhalations, Pulmicort and Perforomist inhalations, IV Solu-Medrol. Diflucan. Empiric antibiotics in the form of doxycycline. Objective - Vital Signs Vital signs: Vital Signs Temp 97.4 F L 03/27/21 04:35 Pulse 80 03/27/21 12:02 Resp 18 03/27/21 04:35 BP 171/85 03/27/21 04:35 Pulse Ox 93 L 03/27/21 10:46 Intake & Output 03/26/21 03/27/21 03/27/21 18:59 06:59 18:59 Intake Total 600 Balance 600 Intake: Oral 600 Other: Voiding Method Toilet Toilet # Voids 3 2 - Exam GENERAL EXAM: Alert, active, pleasant 70-year-old female patient, on 2 L nasal cannula, fairly comfortable in no apparent distress. HEAD: Normocephalic. EYES: Normal reaction of pupils, equal size. NOSE: Clear with pink turbinates. THROAT: No erythema or exudates. NECK: No masses, no JVD. CHEST: No chest wall deformity. LUNGS: Equal air entry with bilateral end expiratory wheeze, diminished. CVS: S1 and S2 normal with no audible murmur, regular rhythm. ABDOMEN: No hepatosplenomegaly, normal bowel sounds, no guarding or rigidity. SPINE: No scoliosis or deformity SKIN: No rashes CENTRAL NERVOUS SYSTEM: No focal deficits, tone is normal in all 4 extremities. EXTREMITIES: There is no peripheral edema. No clubbing, no cyanosis. Peripheral pulses are intact. - Labs CBC & Chem 7: 03/23/21 14:52 03/24/21 20:53 Labs: Abnormal Lab Results - Last 24 Hours (Table) 03/26/21 03/26/21 03/26/21 Range/Units 12:24 17:39 20:15 POC Glucose (mg/dL) 113 H 113 H 206 H (75-99) mg/dL 03/27/21 03/27/21 Range/Units 07:12 11:35 POC Glucose (mg/dL) 131 H 128 H (75-99) mg/dL Assessment and Plan Assessment: 1 Acute exacerbation of chronic obstructive pulmonary disease. Chest x-ray showed no evidence of acute pulmonary process, COVID-19, RSV, influenza A and B were negative. 2 Severe COPD, with baseline FEV1 of 35% predicted, stage III COPD, usually not on home oxygen, on maintenance with prednisone 5 mg daily 3 Recent episode of bronchitis, recently completed Levaquin and prednisone taper on an outpatient basis 4 Chronic suppressive therapy with azithromycin for prevention of frequent exacerbations of COPD 5 Former smoker, currently in remission, quit smoking 12 years ago, carries [id number] smoking history 6 Glaucoma Plan: The patient was seen and evaluated by Dr. Parker Patient has been slow to progress Bronchoscopy with BAL in the a.m. Continue the current treatment plan for now We will continue to follow I, the cosigning physician, performed a history & physical examination of the patient. Lungs sounds with bilateral end expiratory wheeze, diminished. Maintaining good O2 saturations in the 90s on 2 L/m per nasal cannula. I discussed the assessment and plan of care with my nurse practitioner, Francisca Madden. I attest to the above note as dictated by her.
--- NOTE | 2021-03-27 13:48 | P.PN ---
Progress Note - Text Progress Note Date: 03/27/21 Chief Complaint: Short of breath This is a 70-year-old patient, follows with Dr. Mohan. [employer] Dr. Parker. Chronic stable medical conditions include hyperlipidemia,. Patient long-standing COPD. Patient for a month has been struggling with increasing shortness of breath. Has a rather congested cough not able to bring up anything. She's gone through steroids antibiotics in the last [address] Parker. Still wheezing. Denies any fever and chills. Appetite is fair. No change in her bowel pattern. Wheezing is present. Presents to the ER for the same. Admitted with COPD exacerbation, acute tracheal bronchitis, oropharyngeal candidiasis. Started on steroids, Mucinex, Diflucan. March 25: Some improvement in breathing. Bringing up some phlegm. Thick. Had about 75% of her lunch. Sitting up. March 26: Patient still congestive the chest. Not able to bring up much phlegm. Bronchitis steroids. Mucinex. Humidified oxygen. Discussed with the patient patient will benefit from bronchial lavage. March 27: Congested in the anterior chest. Planning for bronchoscopy. Not able to expectorate much. Anxious about the procedure. Review of systems: Was done for constitutional, cardiovascular, GI, pulmonary. relevant finding as above Active Medications Acetaminophen (Acetaminophen Tab 325 Mg Tab) 650 mg PO Q6HR PRN PRN Reason: Mild Pain or Fever > 100.5 Al Hydroxide/Mg Hydroxide (Mag Hydrox/Al Hydrox/Simeth 30 Ml Cup) 15 ml PO Q6HR PRN PRN Reason: Indigestion Albuterol/Ipratropium (Ipratropium-Albuterol 3 Ml Neb) 3 ml INHALATION RT-Q4H [facility] Last Admin: 03/27/21 12:02 Dose: 3 ml Documented by: Alprazolam (Alprazolam 0.5 Mg Tab) 0.5 mg PO TID PRN PRN Reason: Anxiety Atorvastatin Calcium (Atorvastatin 10 Mg Tab) 10 mg PO W/SUPPER [facility] Last Admin: 03/26/21 17:59 Dose: 10 mg Documented by: Budesonide (Budesonide 1 Mg/2 Ml Nebu) 1 mg INHALATION RT-BID [facility] Last Admin: 03/27/21 09:09 Dose: Not Given Documented by: Calcium Carbonate/Glycine (Calcium Carbonate 500 Mg Chewable) 1,000 mg PO Q4HR PRN PRN Reason: Dyspepsia Carbamazepine (Carbamazepine Chew 100 Mg Chew) 100 mg PO TID PRN PRN Reason: SEZIURE Cholecalciferol (Cholecalciferol 25 Mcg (1000 Iu) Tablet) 25 mcg PO DAILY [facility] Last Admin: 03/27/21 09:38 Dose: 25 mcg Documented by: Doxycycline Monohydrate (Doxycycline 100 Mg Cap) 100 mg PO BID [facility] Last Admin: 03/27/21 09:39 Dose: 100 mg Documented by: Fluconazole (Fluconazole 100 Mg Tab) 100 mg PO DAILY [facility] Last Admin: 03/27/21 09:39 Dose: 100 mg Documented by: Formoterol Fumarate (Formoterol Fumarate 20 Mcg/2 Ml Nebu) 20 mcg INHALATION RT-BID [facility] Last Admin: 03/27/21 09:09 Dose: Not Given Documented by: Guaifenesin (Guaifenesin 600 Mg Tablet.Er) 600 mg PO QID [facility] Last Admin: 03/27/21 13:44 Dose: 600 mg Documented by: Heparin Sodium (Porcine) (Heparin Sodium,Porcine/Pf 5,000 Unit/0.5 Ml Syringe) 5,000 unit SQ Q8HR [facility] Last Admin: 03/27/21 09:33 Dose: 5,000 unit Documented by: Insulin Aspart (Insulin Aspart (Novolog) 100 Unit/Ml Vial) 0 unit SQ [facility]; Protocol Last Admin: 03/27/21 11:45 Dose: Not Given Documented by: Lactulose (Lactulose 20 Gm/30 Ml Cup) 20 gm PO DAILY PRN PRN Reason: Constipation Latanoprost (Latanoprost 0.005% Ophth Drops 2.5 Ml Btl) 1 drops BOTH [facility] Last Admin: 03/26/21 20:21 Dose: 1 drops Documented by: Magnesium Hydroxide (Magnesium Hydroxide 2,400 Mg/10 Ml Cup) 2,400 mg PO DAILY PRN PRN Reason: Constipation Melatonin (Melatonin 3 Mg Tablet) 3 mg PO HS PRN PRN Reason: Insomnia Meloxicam (Meloxicam 7.5 Mg Tab) 15 mg PO DAILY PRN PRN Reason: Pain Methylprednisolone Sodium Succinate (Methylprednisolone Sod Succi 40 Mg/Ml 1 Ml Vial) 40 mg IV Q8HR [facility] Last Admin: 03/27/21 09:33 Dose: 40 mg Documented by: Naloxone HCl (Naloxone 0.4 Mg/Ml 1 Ml Vial) 0.2 mg IV Q2M PRN PRN Reason: Opioid Reversal Nystatin (Nystatin 100,000 Unit/Ml Susp 500,000 Unit/5 Ml Cup) 500,000 unit PO QID [facility] Last Admin: 03/27/21 13:40 Dose: Not Given Documented by: Ondansetron HCl (Ondansetron 4 Mg/2 Ml Vial) 4 mg IVP Q8HR PRN PRN Reason: Nausea And Vomiting Trazodone HCl (Trazodone Hcl 50 Mg Tab) 50 mg PO HS PRN PRN Reason: Insomnia Past medical history to include: COPD, hyperlipidemia Social history: Lives alone. Stop smoking 11 years ago. Smoked for about 31 years. No alcohol Family history: Father in his 50s from COPD was a smoker Physical examination: VITAL SIGNS: 97.9, 57, 14, 1 72 x 66, 94% on 1 L GENERAL: Sitting up in a chair, some shortness of breath EYES: Pupils equal. Conjunctiva normal. HEENT: External appearance of nose and ears normal, oral cavity grossly normal some white spots in the posterior pharynx. NECK: JVD not raised; masses not palpable. HEART: First and second heart sounds are normal; no edema. LUNGS:[ Respiratory rate increased; decreased breath sounds. ABDOMEN: Soft, nontender, liver spleen not palpable, no masses palpable. PSYCH: Alert and oriented x3; mood and affect normal. INVESTIGATIONS, reviewed in the clinical context: WBC 7.6 hemoglobin 15.2 platelets 307 sodium 133 potassium 4.9 BUN 18 creatinine 0.74 Influenza type A, type B, RSV, COVID 19 [PCR]: Not detected EKG tracing personally reviewed by me-sinus tachycardia. P pulmonale, rate 107 Chest x-ray film personally reviewed by me-hyperinflated lung. No obvious infiltrate Assessment and plan: -Acute COPD exacerbation and failed outpatient treatment in a ex-smoker Nebulized bronchodilators, IV steroids, inhaled steroids. Long-acting beta agonist. Follow with pulmonary -Acute severe tracheal bronchitis. Patient not able to expectorate. Humidify oxygen. Mucinex 600 mg 4 times a day. Pending bronchial lavage -Pharyngeal candidiasis Oral Diflucan -Hyperlipidemia Lipitor 10 mg with supper Continue current treatment plan. Pending bronchoscopy. Discussed with the patient.
[2021-03-27 17:20] LABS: Glucose,Whole Blood 128 mg/dL (75-99)
[2021-03-27] MEDS: ATORVASTATIN 10 MG TAB PO SCH (17:45)
[2021-03-27 20:48] LABS: Glucose,Whole Blood 144 mg/dL (75-99)
[2021-03-27] MEDS: LATANOPROST 0.005% OPHTH DROPS 2.5 ML BTL BOTH EYES SCH (21:03)
[2021-03-28] MEDS: IPRATROPIUM-ALBUTEROL 3 ML NEB INHALATION SCH ×6 (01:03→20:35)
[2021-03-28] MEDS: HEPARIN SODIUM,PORCINE/PF 5,000 UNIT/0.5 ML SYRINGE SQ SCH ×3 (07:25→23:20)
[2021-03-28 07:30] LABS: Glucose,Whole Blood 122 mg/dL (75-99)
[2021-03-28] MEDS: INSULIN ASPART (NovoLOG) 100 UNIT/ML VIAL SQ SCH ×4 (07:33→20:58)
[2021-03-28] MEDS: FLUCONAZOLE 100 MG TAB PO SCH (07:55)
[2021-03-28] MEDS: CHOLECALCIFEROL 25 MCG (1000 IU) TABLET PO SCH (07:55)
[2021-03-28] MEDS: guaiFENesin 600 MG TABLET.ER PO SCH ×4 (07:55→20:59)
[2021-03-28] MEDS: DOXYCYCLINE 100 MG CAP PO SCH ×2 (07:56→20:58)
[2021-03-28] MEDS: NYSTATIN 100,000 UNIT/ML SUSP 500,000 UNIT/5 ML CUP PO SCH ×4 (07:57→19:45)
[2021-03-28] MEDS: FORMOTEROL FUMARATE 20 MCG/2 ML NEBU INHALATION SCH ×2 (08:31→20:35)
[2021-03-28] MEDS: BUDESONIDE 1 MG/2 ML NEBU INHALATION SCH ×2 (08:31→20:35)
[2021-03-28] MEDS: methylPREDNISolone SOD SUCCI 40 MG/ML 1 ML VIAL IV SCH ×3 (08:40→23:20)
[2021-03-28 11:52] LABS: Glucose,Whole Blood 124 mg/dL (75-99)
--- NOTE | 2021-03-28 12:05 | P.PN ---
Subjective Progress Note Date: 03/28/21 Principal diagnosis: COPD exacerbation This is a 70-year-old white female patient, with known history of COPD, she follows with Dr. Overton in the pulmonary clinic for the same, she has a baseline FEV1 of 35% of predicted, stage III COPD, the patient is on maintenance dose of azithromycin 250 mg on Wednesday schedule as well as maintenance dose prednisone 5 mg for prevention of frequent pulmonary infections and COPD exacerbation. Patient is a former smoker, and has history of glaucoma. Patient came into the emergency department on 03/23/2021 for evaluation of worsening shortness of breath. She recently completed a course of Levaquin for bronchitis last week. She is also on a prednisone taper. She has been taking her breathing treatments. She endorsed a nonproductive congested cough. She had previously required bronchoscopy to help clear the mucous plugs. She denied any fever, denied any chest pain, no hemoptysis, no abdominal pain and nausea v omiting or diarrhea. She was vaccinated for COVID-19. She tested negative for influenza A and B, RSV and COVID-19. Chest x-ray showed no acute lung disease. Blood work showed white blood cell count of 7.6, hemoglobin 15.2, platelet count of 307, patient is leukopenic with a lymphocyte count of 0.2, sodium is 133, the rest of the electrolytes are within normal limits, BUN is 18 creatinine 0.74. Patient has been started on IV Solu-Medrol 60 mg every 6 hours, she is on nebulized bronchodilators, and we will add doxycycline. The patient is seen today 03/25/2021 in follow-up on the regular medical floor. She is currently sitting up in bed. Awake and alert in no acute distress. Breathing a bit easier today compared to yesterday. Not quite back to her baseline. She is maintaining O2 saturations in the 90s on room air. She's been afebrile. Glucose 224. She is continued on DuoNeb inhalations, Pulmicort and Perforomist inhalations, IV Solu-Medrol. Empiric antibiotics in the form of doxycycline. She is on Diflucan as well. The patient is seen today 03/26/2021 in follow-up on the regular medical floor. She is currently sitting up in bed. Awake and alert in no acute distress. States she is still not back to her baseline. Still with a loose nonproductive cough. Dyspnea on exertion. Maintaining O2 saturations in the low 90s on room air. Placed on 2 L nasal cannula. She's afebrile. Blood glucose 123. She is continued on DuoNeb inhalations, Pulmicort and Perforomist inhalations, IV Solu- Medrol. Empiric antibiotics in the form of doxycycline. The patient is seen today 03/27/2021 in follow-up on the regular medical floor. She is currently sitting up in a chair at the bedside. Awake and alert in no acute distress. She states she is still not back to her baseline. Loose cough, congestion shortness of breath. Maintaining O2 saturations up to 99% on 2 L/m per nasal cannula. She's been afebrile. Hemodynamically stable. Blood glucose 128. She is continued on DuoNeb inhalations, Pulmicort and Perforomist inhalations, IV Solu-Medrol. Diflucan. Empiric antibiotics in the form of doxycycline. The patient is seen today 03/28/2021 in follow-up on the regular medical floor. She is currently sitting up in bed. Awake and alert in no acute distress. St ates her breathing is still about the same. Still with a loose nonproductive cough. She is maintaining O2 saturations up to 98% on 2 L/m per nasal cannula. She's afebrile. Hemodynamically stable. Blood glucose 124. She is continued on DuoNeb inhalations, Pulmicort and Perforomist inhalations, IV Solu-Medrol. Diflucan. Empiric antibiotics in the form of doxycycline. Plan is for bronchoscopy with BAL today. Objective - Vital Signs Vital signs: Vital Signs Temp 97.8 F 03/28/21 05:00 Pulse 101 H 03/28/21 08:55 Resp 17 03/28/21 05:00 BP 164/78 03/28/21 05:00 Pulse Ox 98 03/28/21 08:31 Intake & Output 03/27/21 03/28/21 03/28/21 18:59 06:59 18:59 Other: Voiding Method Toilet Toilet Toilet # Voids 3 2 1 - Exam GENERAL EXAM: Alert, active, pleasant 70-year-old female patient, on 2 L nasal cannula, fairly comfortable in no apparent distress. HEAD: Normocephalic. EYES: Normal reaction of pupils, equal size. NOSE: Clear with pink turbinates. THROAT: No erythema or exudates. NECK: No masses, no JVD. CHEST: No chest wall deformity. LUNGS: Equal air entry with bilateral end expiratory wheeze, diminished. CVS: S1 and S2 normal with no audible murmur, regular rhythm. ABDOMEN: No hepatosplenomegaly, normal bowel sounds, no guarding or rigidity. SPINE: No scoliosis or deformity SKIN: No rashes CENTRAL NERVOUS SYSTEM: No focal deficits, tone is normal in all 4 extremities. EXTREMITIES: There is no peripheral edema. No clubbing, no cyanosis. P eripheral pulses are intact. - Labs CBC & Chem 7: 03/23/21 14:52 03/24/21 20:53 Labs: Abnormal Lab Results - Last 24 Hours (Table) 03/27/21 03/27/21 03/28/21 Range/Units 17:18 20:46 07:29 POC Glucose (mg/dL) 128 H 144 H 122 H (75-99) mg/dL 03/28/21 Range/Units 11:51 POC Glucose (mg/dL) 124 H (75-99) mg/dL Assessment and Plan Assessment: 1 Acute exacerbation of chronic obstructive pulmonary disease. Chest x-ray showed no evidence of acute pulmonary process, COVID-19, RSV, influenza A and B were negative. 2 Severe COPD, with baseline FEV1 of 35% predicted, stage III COPD, usually not on home oxygen, on maintenance with prednisone 5 mg daily 3 Recent episode of bronchitis, recently completed Levaquin and prednisone taper on an outpatient basis 4 Chronic suppressive therapy with azithromycin for prevention of frequent exacerbations of COPD 5 Former smoker, currently in remission, quit smoking 12 years ago, carries [id number] smoking history 6 Glaucoma Plan: The patient was seen and evaluated by Dr. Parker Patient has been slow to progress Bronchoscopy with BAL today Continue the current treatment plan for now We will continue to follow I, the cosigning physician, performed a history & physical examination of the patient. Lungs sounds with bilateral end expiratory wheeze, diminished. Maintaining good O2 saturations in the 90s on 2 L/m per nasal cannula. I discussed the assessment and plan of care with my nurse practitioner, Francisca Madden. I attest to the above note as dictated by her.
[2021-03-28] MEDS ORDERED: PROPOFOL 10 MG/ML 20 ML VIAL IV ONE (13:22)
[2021-03-28] MEDS ORDERED: LACTATED RINGERS 1,000 ML IV ONE ×2 (13:25)
[2021-03-28] MEDS ORDERED: LIDOCAINE 2% INJ 20 MG/ML INTRATRACH ONE (13:34)
[2021-03-28 17:47] LABS: Glucose,Whole Blood 126 mg/dL (75-99)
[2021-03-28] MEDS: ATORVASTATIN 10 MG TAB PO SCH (17:52)
--- NOTE | 2021-03-28 18:45 | OP ---
OPERATIVE REPORT OPERATIVE REPORT: Bronchoscopy. PREOPERATIVE DIAGNOSIS: Acute exacerbation of chronic obstructive pulmonary disease, acute tracheobronchitis, and difficulty clearing secretions. POSTOPERATIVE DIAGNOSIS: Acute exacerbation of chronic obstructive pulmonary disease, acute tracheobronchitis, and difficulty clearing secretions. ANESTHESIA USED: IV conscious sedation. PROCEDURE DESCRIPTION: Patient was placed in a supine position. We monitored her O2 saturation continuously. Blood pressure was intermittently monitored and cardiac rhythm was continuously monitored. O2 was applied via nasal cannula. After IV conscious sedation, 2 mL of lidocaine were instilled into the right naris and the bronchoscope was advanced through the right naris down to the area of the vocal cords. Lidocaine was applied over the vocal cords, and the bronchoscope was advanced further down to the trachea. As we entered the trachea, there was a significant amount of purulent secretions on the posterior wall of the trachea. These were suctioned. Then as I went downwards to the right mainstem and left mainstem bronchi, there was also a significant amount of bronchial secretions, purulent, thick, and I was able to do a random wash of both lungs, including right mainstem and left mainstem bronchus, right upper lobe, right middle lobe, right lower lobe, left upper lobe lingula and left lower lobe. All secretions were suctioned easily with saline used to suction the said secretions. Procedure was well tolerated. No evidence of any complications. Fluid was sent for different diagnostic studies. MMODL / IJN: [id number] /
--- NOTE | 2021-03-28 19:13 | P.PN ---
Progress Note - Text Progress Note Date: 03/28/21 Chief Complaint: Short of breath This is a 70-year-old patient, follows with Dr. Mohan. 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 Parker. Chronic stable medical conditions include hyperlipidemia,. Patient long-standing COPD. Patient for a month has been struggling with increasing shortness of breath. Has a rather congested cough not able to bring up anything. She's gone through steroids antibiotics in the last [address] Parker. Still wheezing. Denies any fever and chills. Appetite is fair. No change in her bowel pattern. Wheezing is present. Presents to the ER for the same. Admitted with COPD exacerbation, acute tracheal bronchitis, oropharyngeal candidiasis. Started on steroids, Mucinex, Diflucan. March 25: Some improvement in breathing. Bringing up some phlegm. Thick. Had about 75% of her lunch. Sitting up. March 26: Patient still congestive the chest. Not able to bring up much phlegm. Bronchitis steroids. Mucinex. Humidified oxygen. Discussed with the patient patient will benefit from bronchial lavage. March 27: Congested in the anterior chest. Planning for bronchoscopy. Not able to expectorate much. Anxious about the procedure. March 28: Remains congested. Saw the patient this morning. Pending bronchoscopy. Discussed with patient. Review of systems: Was done for constitutional, cardiovascular, GI, pulmonary. relevant finding as above Active Medications Acetaminophen (Acetaminophen Tab 325 Mg Tab) 650 mg PO Q6HR PRN PRN Reason: Mild Pain or Fever > 100.5 Al Hydroxide/Mg Hydroxide (Mag Hydrox/Al Hydrox/Simeth 30 Ml Cup) 15 ml PO Q6HR PRN PRN Reason: Indigestion Albuterol/Ipratropium (Ipratropium-Albuterol 3 Ml Neb) 3 ml INHALATION RT-Q4H [facility] Last Admin: 03/28/21 17:49 Dose: Not Given Documented by: Alprazolam (Alprazolam 0.5 Mg Tab) 0.5 mg PO TID PRN PRN Reason: Anxiety Atorvastatin Calcium (Atorvastatin 10 Mg Tab) 10 mg PO W/SUPPER [facility] Last Admin: 03/28/21 17:52 Dose: 10 mg Documented by: Budesonide (Budesonide 1 Mg/2 Ml Nebu) 1 mg INHALATION RT-BID [facility] Last Admin: 03/28/21 08:31 Dose: 1 mg Documented by: Calcium Carbonate/Glycine (Calcium Carbonate 500 Mg Chewable) 1,000 mg PO Q4HR PRN PRN Reason: Dyspepsia Carbamazepine (Carbamazepine Chew 100 Mg Chew) 100 mg PO TID PRN PRN Reason: SEZIURE Cholecalciferol (Cholecalciferol 25 Mcg (1000 Iu) Tablet) 25 mcg PO DAILY [facility] Last Admin: 03/28/21 07:55 Dose: 25 mcg Documented by: Doxycycline Monohydrate (Doxycycline 100 Mg Cap) 100 mg PO BID [facility] Last Admin: 03/28/21 07:56 Dose: 100 mg Documented by: Fluconazole (Fluconazole 100 Mg Tab) 100 mg PO DAILY [facility] Last Admin: 03/28/21 07:55 Dose: 100 mg Documented by: Formoterol Fumarate (Formoterol Fumarate 20 Mcg/2 Ml Nebu) 20 mcg INHALATION RT-BID [facility] Last Admin: 03/28/21 08:31 Dose: 20 mcg Documented by: Guaifenesin (Guaifenesin 600 Mg Tablet.Er) 600 mg PO QID [facility] Last Admin: 03/28/21 17:52 Dose: 600 mg Documented by: Heparin Sodium (Porcine) (Heparin Sodium,Porcine/Pf 5,000 Unit/0.5 Ml Syringe) 5,000 unit SQ Q8HR [facility] Last Admin: 03/28/21 16:26 Dose: 5,000 unit Documented by: Insulin Aspart (Insulin Aspart (Novolog) 100 Unit/Ml Vial) 0 unit SQ [facility]; Protocol Last Admin: 03/28/21 17:48 Dose: Not Given Documented by: Lactulose (Lactulose 20 Gm/30 Ml Cup) 20 gm PO DAILY PRN PRN Reason: Constipation Latanoprost (Latanoprost 0.005% Ophth Drops 2.5 Ml Btl) 1 drops BOTH EYES HS [facility] Last Admin: 03/27/21 21:03 Dose: 1 drops Documented by: Magnesium Hydroxide (Magnesium Hydroxide 2,400 Mg/10 Ml Cup) 2,400 mg PO DAILY PRN PRN Reason: Constipation Melatonin (Melatonin 3 Mg Tablet) 3 mg PO HS PRN PRN Reason: Insomnia Meloxicam (Meloxicam 7.5 Mg Tab) 15 mg PO DAILY PRN PRN Reason: Pain Methylprednisolone Sodium Succinate (Methylprednisolone Sod Succi 40 Mg/Ml 1 Ml Vial) 40 mg IV Q8HR [facility] Last Admin: 03/28/21 16:26 Dose: 40 mg Documented by: Naloxone HCl (Naloxone 0.4 Mg/Ml 1 Ml Vial) 0.2 mg IV Q2M PRN PRN Reason: Opioid Reversal Nystatin (Nystatin 100,000 Unit/Ml Susp 500,000 Unit/5 Ml Cup) 500,000 unit PO QID [facility] Last Admin: 03/28/21 17:48 Dose: Not Given Documented by: Ondansetron HCl (Ondansetron 4 Mg/2 Ml Vial) 4 mg IVP Q8HR PRN PRN Reason: Nausea And Vomiting Trazodone HCl (Trazodone Hcl 50 Mg Tab) 50 mg PO HS PRN PRN Reason: Insomnia Past medical history to include: COPD, hyperlipidemia Social history: Lives alone. Stop smoking 11 years ago. Smoked for about 31 years. No alcohol Family history: Father in his 50s from COPD was a smoker Physical examination: VITAL SIGNS: 98.5, 111, 18, 171/89, 97% on 2 L GENERAL: Reclining in bed, some shortness of breath EYES: Pupils equal. Conjunctiva normal. HEENT: External appearance of nose and ears normal, oral cavity grossly normal some white spots in the posterior pharynx. NECK: JVD not raised; masses not palpable. HEART: First and second heart sounds are normal; no edema. LUNGS:[ Respiratory rate increased; decreased breath sounds. Expiratory crackles. ABDOMEN: Soft, nontender, liver spleen not palpable, no masses palpable. PSYCH: Alert and oriented x3; mood and affect normal. INVESTIGATIONS, reviewed in the clinical context: WBC 7.6 hemoglobin 15.2 platelets 307 sodium 133 potassium 4.9 BUN 18 creatinine 0.74 Influenza type A, type B, RSV, COVID 19 [PCR]: Not detected EKG tracing personally reviewed by me-sinus tachycardia. P pulmonale, rate 107 Chest x-ray film personally reviewed by me-hyperinflated lung. No obvious infiltrate Assessment and plan: -Acute COPD exacerbation and failed outpatient treatment in a ex-smoker Nebulized bronchodilators, IV steroids, inhaled steroids. Long-acting beta agonist. Follow with pulmonary -Acute severe tracheal bronchitis. Patient not able to expectorate. Humidify oxygen. Mucinex 600 mg 4 times a day. Pending bronchial lavage -Pharyngeal candidiasis Oral Diflucan -Hyperlipidemia Lipitor 10 mg with supper Continue current treatment plan. Pending bronchoscopy today. Discussed with patient.
[2021-03-28 20:33] LABS: Glucose,Whole Blood 169 mg/dL (75-99)
[2021-03-28] MEDS: LATANOPROST 0.005% OPHTH DROPS 2.5 ML BTL BOTH EYES SCH (20:59)
[2021-03-29] MEDS: IPRATROPIUM-ALBUTEROL 3 ML NEB INHALATION SCH ×7 (00:04→23:04)
[2021-03-29 07:42] LABS: Glucose,Whole Blood 129 mg/dL (75-99)
[2021-03-29] MEDS: INSULIN ASPART (NovoLOG) 100 UNIT/ML VIAL SQ SCH ×4 (08:34→20:17)
[2021-03-29] MEDS: BUDESONIDE 1 MG/2 ML NEBU INHALATION SCH ×2 (09:03→19:56)
[2021-03-29] MEDS: FORMOTEROL FUMARATE 20 MCG/2 ML NEBU INHALATION SCH ×2 (09:03→19:55)
[2021-03-29] MEDS: methylPREDNISolone SOD SUCCI 40 MG/ML 1 ML VIAL IV SCH ×3 (09:19→23:21)
[2021-03-29] MEDS: HEPARIN SODIUM,PORCINE/PF 5,000 UNIT/0.5 ML SYRINGE SQ SCH ×3 (09:20→23:21)
[2021-03-29] MEDS: NYSTATIN 100,000 UNIT/ML SUSP 500,000 UNIT/5 ML CUP PO SCH ×4 (09:55→20:17)
[2021-03-29] MEDS: FLUCONAZOLE 100 MG TAB PO SCH (09:56)
[2021-03-29] MEDS: CHOLECALCIFEROL 25 MCG (1000 IU) TABLET PO SCH (09:56)
[2021-03-29] MEDS: DOXYCYCLINE 100 MG CAP PO SCH ×2 (09:56→20:17)
[2021-03-29] MEDS: guaiFENesin 600 MG TABLET.ER PO SCH ×4 (09:56→20:17)
[2021-03-29 12:04] LABS: Glucose,Whole Blood 153 mg/dL (75-99)
--- NOTE | 2021-03-29 14:30 | P.PN ---
Progress Note - Text Progress Note Date: 03/29/21 Chief Complaint: Short of breath This is a 70-year-old patient, follows with Dr. Mohan. 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 Chronic stable medical conditions include hyperlipidemia,. Patient long-standing COPD. Patient for a month has been struggling with increasing shortness of breath. Has a rather congested cough not able to bring up anything. She's gone through steroids antibiotics in the last [address] Parker. Still wheezing. Denies any fever and chills. Appetite is fair. No change in her bowel pattern. Wheezing is present. Presents to the ER for the same. Admitted with COPD exacerbation, acute tracheal bronchitis, oropharyngeal candidiasis. Started on steroids, Mucinex, Diflucan. March 25: Some improvement in breathing. Bringing up some phlegm. Thick. Had about 75% of her lunch. Sitting up. March 26: Patient still congestive the chest. Not able to bring up much phlegm. Bronchitis steroids. Mucinex. Humidified oxygen. Discussed with the patient patient will benefit from bronchial lavage. March 27: Congested in the anterior chest. Planning for bronchoscopy. Not able to expectorate much. Anxious about the procedure. March 28: Remains congested. Saw the patient this morning. Pending bronchoscopy. Discussed with patient. March 29: Patient underwent bronchoscopy with lavage yesterday. A lot of thick infected appearing secretion was removed. This morning. Patient breathing is a bit better. Decreased congestion. Discussed with Dr. Parker. Follow. Oral intake better. Sitting up in a chair. Review of systems: Was done for constitutional, cardiovascular, GI, pulmonary. relevant finding as above Active Medications Acetaminophen (Acetaminophen Tab 325 Mg Tab) 650 mg PO Q6HR PRN PRN Reason: Mild Pain or Fever > 100.5 Al Hydroxide/Mg Hydroxide (Mag Hydrox/Al Hydrox/Simeth 30 Ml Cup) 15 ml PO Q6HR PRN PRN Reason: Indigestion Albuterol/Ipratropium (Ipratropium-Albuterol 3 Ml Neb) 3 ml INHALATION RT-Q4H [facility] Last Admin: 03/29/21 12:23 Dose: 3 ml Documented by: Alprazolam (Alprazolam 0.5 Mg Tab) 0.5 mg PO TID PRN PRN Reason: Anxiety Atorvastatin Calcium (Atorvastatin 10 Mg Tab) 10 mg PO W/SUPPER [facility] Last Admin: 03/28/21 17:52 Dose: 10 mg Documented by: Budesonide (Budesonide 1 Mg/2 Ml Nebu) 1 mg INHALATION RT-BID [facility] Last Admin: 03/29/21 09:03 Dose: 1 mg Documented by: Calcium Carbonate/Glycine (Calcium Carbonate 500 Mg Chewable) 1,000 mg PO Q4HR PRN PRN Reason: Dyspepsia Carbamazepine (Carbamazepine Chew 100 Mg Chew) 100 mg PO TID PRN PRN Reason: SEZIURE Cholecalciferol (Cholecalciferol 25 Mcg (1000 Iu) Tablet) 25 mcg PO DAILY [facility] Last Admin: 03/29/21 09:56 Dose: 25 mcg Documented by: Doxycycline Monohydrate (Doxycycline 100 Mg Cap) 100 mg PO BID [facility] Last Admin: 03/29/21 09:56 Dose: 100 mg Documented by: Fluconazole (Fluconazole 100 Mg Tab) 100 mg PO DAILY [facility] Last Admin: 03/29/21 09:56 Dose: 100 mg Documented by: Formoterol Fumarate (Formoterol Fumarate 20 Mcg/2 Ml Nebu) 20 mcg INHALATION RT-BID [facility] Last Admin: 03/29/21 09:03 Dose: 20 mcg Documented by: Guaifenesin (Guaifenesin 600 Mg Tablet.Er) 600 mg PO QID [facility] Last Admin: 03/29/21 12:08 Dose: 600 mg Documented by: Heparin Sodium (Porcine) (Heparin Sodium,Porcine/Pf 5,000 Unit/0.5 Ml Syringe) 5,000 unit SQ Q8HR [facility] Last Admin: 03/29/21 09:20 Dose: 5,000 unit Documented by: Insulin Aspart (Insulin Aspart (Novolog) 100 Unit/Ml Vial) 0 unit SQ [facility]; Protocol Last Admin: 03/29/21 12:08 Dose: 1 unit Documented by: Lactulose (Lactulose 20 Gm/30 Ml Cup) 20 gm PO DAILY PRN PRN Reason: Constipation Latanoprost (Latanoprost 0.005% Ophth Drops 2.5 Ml Btl) 1 drops BOTH EYES HS [facility] Last Admin: 03/28/21 20:59 Dose: 1 drops Documented by: Magnesium Hydroxide (Magnesium Hydroxide 2,400 Mg/10 Ml Cup) 2,400 mg PO DAILY PRN PRN Reason: Constipation Melatonin (Melatonin 3 Mg Tablet) 3 mg PO HS PRN PRN Reason: Insomnia Meloxicam (Meloxicam 7.5 Mg Tab) 15 mg PO DAILY PRN PRN Reason: Pain Methylprednisolone Sodium Succinate (Methylprednisolone Sod Succi 40 Mg/Ml 1 Ml Vial) 40 mg IV Q8HR [facility] Last Admin: 03/29/21 09:19 Dose: 40 mg Documented by: Naloxone HCl (Naloxone 0.4 Mg/Ml 1 Ml Vial) 0.2 mg IV Q2M PRN PRN Reason: Opioid Reversal Nystatin (Nystatin 100,000 Unit/Ml Susp 500,000 Unit/5 Ml Cup) 500,000 unit PO QID [facility] Last Admin: 03/29/21 12:06 Dose: Not Given Documented by: Ondansetron HCl (Ondansetron 4 Mg/2 Ml Vial) 4 mg IVP Q8HR PRN PRN Reason: Nausea And Vomiting Trazodone HCl (Trazodone Hcl 50 Mg Tab) 50 mg PO HS PRN PRN Reason: Insomnia Past medical history to include: COPD, hyperlipidemia Social history: Lives alone. Stop smoking 11 years ago. Smoked for about 31 years. No alcohol Family history: Father in his 50s from COPD was a smoker Physical examination: VITAL SIGNS: 98.9, 109, 19, 154/49, 92% room air GENERAL: Sitting up in a chair, eating lunch congested cough EYES: Pupils equal. Conjunctiva normal. HEENT: External appearance of nose and ears normal, oral cavity grossly normal some white spots in the posterior pharynx. NECK: JVD not raised; masses not palpable. HEART: First and second heart sounds are normal; no edema. LUNGS:[ Respiratory rate increased; decreased breath sounds. Wheezing. ABDOMEN: Soft, nontender, liver spleen not palpable, no masses palpable. PSYCH: Alert and oriented x3; mood and affect normal. INVESTIGATIONS, reviewed in the clinical context: WBC 7.6 hemoglobin 15.2 platelets 307 sodium 133 potassium 4.9 BUN 18 creatinine 0.74 Influenza type A, type B, RSV, COVID 19 [PCR]: Not detected EKG tracing personally reviewed by me-sinus tachycardia. P pulmonale, rate 107 Chest x-ray film personally reviewed by me-hyperinflated lung. No obvious infiltrate Assessment and plan: -Acute COPD exacerbation and failed outpatient treatment in a ex-smoker Nebulized bronchodilators, IV steroids, inhaled steroids. Long-acting beta agonist. Follow with pulmonary -Acute severe tracheal bronchitis. Patient not able to expectorate. Humidify oxygen. Mucinex 600 mg 4 times a day. Status post bronchial lavage. Out of infected secretion was removed. -Pharyngeal candidiasis Oral Diflucan -Hyperlipidemia Lipitor 10 mg with supper Discussed with the patient. Continue current medication treatment plan. Await culture results.
--- NOTE | 2021-03-29 14:46 | P.PN ---
Subjective Progress Note Date: 03/29/21 Principal diagnosis: COPD exacerbation This is a 70-year-old white female patient, with known history of COPD, she follows with Dr. Overton in the pulmonary clinic for the same, she has a baseline FEV1 of 35% of predicted, stage III COPD, the patient is on maintenance dose of azithromycin 250 mg on Wednesday schedule as well as maintenance dose prednisone 5 mg for prevention of frequent pulmonary infections and COPD exacerbation. Patient is a former smoker, and has history of glaucoma. Patient came into the emergency department on 03/23/2021 for evaluation of worsening shortness of breath. She recently completed a course of Levaquin for bronchitis last week. She is also on a prednisone taper. She has been taking her breathing treatments. She endorsed a nonproductive congested cough. She had previously required bronchoscopy to help clear the mucous plugs. She denied any fever, denied any chest pain, no hemoptysis, no abdominal pain and nausea v omiting or diarrhea. She was vaccinated for COVID-19. She tested negative for influenza A and B, RSV and COVID-19. Chest x-ray showed no acute lung disease. Blood work showed white blood cell count of 7.6, hemoglobin 15.2, platelet count of 307, patient is leukopenic with a lymphocyte count of 0.2, sodium is 133, the rest of the electrolytes are within normal limits, BUN is 18 creatinine 0.74. Patient has been started on IV Solu-Medrol 60 mg every 6 hours, she is on nebulized bronchodilators, and we will add doxycycline. The patient is seen today 03/25/2021 in follow-up on the regular medical floor. She is currently sitting up in bed. Awake and alert in no acute distress. Breathing a bit easier today compared to yesterday. Not quite back to her baseline. She is maintaining O2 saturations in the 90s on room air. She's been afebrile. Glucose 224. She is continued on DuoNeb inhalations, Pulmicort and Perforomist inhalations, IV Solu-Medrol. Empiric antibiotics in the form of doxycycline. She is on Diflucan as well. The patient is seen today 03/26/2021 in follow-up on the regular medical floor. She is currently sitting up in bed. Awake and alert in no acute distress. States she is still not back to her baseline. Still with a loose nonproductive cough. Dyspnea on exertion. Maintaining O2 saturations in the low 90s on room air. Placed on 2 L nasal cannula. She's afebrile. Blood glucose 123. She is continued on DuoNeb inhalations, Pulmicort and Perforomist inhalations, IV Solu- Medrol. Empiric antibiotics in the form of doxycycline. The patient is seen today 03/27/2021 in follow-up on the regular medical floor. She is currently sitting up in a chair at the bedside. Awake and alert in no acute distress. She states she is still not back to her baseline. Loose cough, congestion shortness of breath. Maintaining O2 saturations up to 99% on 2 L/m per nasal cannula. She's been afebrile. Hemodynamically stable. Blood glucose 128. She is continued on DuoNeb inhalations, Pulmicort and Perforomist inhalations, IV Solu-Medrol. Diflucan. Empiric antibiotics in the form of doxycycline. The patient is seen today 03/28/2021 in follow-up on the regular medical floor. She is currently sitting up in bed. Awake and alert in no acute distress. St ates her breathing is still about the same. Still with a loose nonproductive cough. She is maintaining O2 saturations up to 98% on 2 L/m per nasal cannula. She's afebrile. Hemodynamically stable. Blood glucose 124. She is continued on DuoNeb inhalations, Pulmicort and Perforomist inhalations, IV Solu-Medrol. Diflucan. Empiric antibiotics in the form of doxycycline. Plan is for bronchoscopy with BAL today. The patient is seen today 03/29/2021 in follow-up on the regular medical floor. She is currently sitting up in bed. Awake and alert in no acute distress. Her breathing is better today compared to yesterday. She is status post bronchoscopy with BAL with significant amount of mucus removed. Cultures pending. She is maintaining O2 saturations in the 90s on room air. She's been afebrile. Hemodynamically stable. Blood glucose 153. She is continued on DuoNeb inhalations, Pulmicort and Perforomist inhalations, IV Solu-Medrol. Diflucan. Empiric antibiotics in the form of doxycycline. Objective - Vital Signs Vital signs: Vital Signs Temp 98.9 F 03/29/21 12:03 Pulse 108 H 03/29/21 12:36 Resp 19 03/29/21 12:03 BP 154/49 03/29/21 12:03 Pulse Ox 92 L 03/29/21 12:03 Intake & Output 03/28/21 03/29/21 03/29/21 18:59 06:59 18:59 Intake Total 100 600 Balance 100 600 Intake: IV 100 Oral 600 Other: Voiding Method Toilet Toilet # Voids 2 3 - Exam GENERAL EXAM: Alert, pleasant 70-year-old female patient, on room air, fairly comfortable in no apparent distress. HEAD: Normocephalic. EYES: Normal reaction of pupils, equal size. NOSE: Clear with pink turbinates. THROAT: No erythema or exudates. NECK: No masses, no JVD. CHEST: No chest wall deformity. LUNGS: Equal air entry with bilateral end expiratory wheeze, diminished. CVS: S1 and S2 normal with no audible murmur, regular rhythm. ABDOMEN: No hepatosplenomegaly, normal bowel sounds, no guarding or rigidity. SPINE: No scoliosis or deformity SKIN: No rashes CENTRAL NERVOUS SYSTEM: No focal deficits, tone is normal in all 4 extremities. EXTREMITIES: There is no peripheral edema. No clubbing, no cyanosis. Peripheral pulses are intact. - Labs CBC & Chem 7: 03/23/21 14:52 03/24/21 20:53 Labs: Abnormal Lab Results - Last 24 Hours (Table) 03/28/21 03/28/21 03/29/21 Range/Units 17:45 20:31 07:40 POC Glucose (mg/dL) 126 H 169 H 129 H (75-99) mg/dL 03/29/21 Range/Units 12:03 POC Glucose (mg/dL) 153 H (75-99) mg/dL Microbiology - Last 24 Hours (Table) 03/28/21 13:32 Gram Stain - Preliminary Bronchoalviolar Lavage - Left Bronchial Washings Culture - Preliminary 03/28/21 13:32 Acid Fast Bacilli Culture - Preliminary Bronchoalviolar Lavage - Left 03/28/21 13:32 Fungal Culture - Preliminary Bronchoalviolar Lavage - Left Assessment and Plan Assessment: 1 Acute exacerbation of chronic obstructive pulmonary disease. Chest x-ray showed no evidence of acute pulmonary process, COVID-19, RSV, influenza A and B were negative. 2 Severe COPD, with baseline FEV1 of 35% predicted, stage III COPD, usually not on home oxygen, on maintenance with prednisone 5 mg daily 3 Recent episode of bronchitis, recently completed Levaquin and prednisone taper on an outpatient basis 4 Chronic suppressive therapy with azithromycin for prevention of frequent exacerbations of COPD 5 Former smoker, currently in remission, quit smoking 12 years ago, carries [id number] smoking history 6 Glaucoma Plan: The patient was seen and evaluated by Dr. Parker Improved and on room air Bronchoscopy with BAL formed yesterday with retained secretions removed Cultures pending Continue the current treatment plan for now Probable discharge in the a.m. We will continue to follow I, the cosigning physician, performed a history & physical examination of the patient. Lungs sounds with bilateral end expiratory wheeze, diminished. Maintaining good O2 saturations in the 90s on room air. I discussed the assessment and plan of care with my nurse practitioner, Francisca Madden. I attest to the above note as dictated by her.
[2021-03-29] MEDS: ATORVASTATIN 10 MG TAB PO SCH (16:49)
[2021-03-29 17:41] LABS: Glucose,Whole Blood 139 mg/dL (75-99)
[2021-03-29 20:02] LABS: Glucose,Whole Blood 189 mg/dL (75-99)
[2021-03-29] MEDS: LATANOPROST 0.005% OPHTH DROPS 2.5 ML BTL BOTH EYES SCH (20:19)
[2021-03-30] MEDS: IPRATROPIUM-ALBUTEROL 3 ML NEB INHALATION SCH ×6 (03:19→23:24)
[2021-03-30 07:01] LABS: African American GFR (CKD) >90 (>60 ml/min/1.73 sqM); Anion Gap 5 mmol/L; Blood Urea Nitrogen 25 mg/dL (7-17); Calcium 9.5 mg/dL (8.4-10.2); Carbon Dioxide 28 mmol/L (22-30); Chloride 101 mmol/L (98-107); Glucose 143 mg/dL (74-99); Non-African American GFR(CKD) 88 (>60 ml/min/1.73 sqM); Potassium 4.7 mmol/L (3.5-5.1); Sodium 134 mmol/L (137-145)
[2021-03-30 07:46] LABS: Glucose,Whole Blood 119 mg/dL (75-99)
[2021-03-30] MEDS: INSULIN ASPART (NovoLOG) 100 UNIT/ML VIAL SQ SCH ×4 (07:50→21:54)
[2021-03-30] MEDS: NYSTATIN 100,000 UNIT/ML SUSP 500,000 UNIT/5 ML CUP PO SCH ×4 (08:02→20:55)
[2021-03-30] MEDS: DOXYCYCLINE 100 MG CAP PO SCH (08:03)
[2021-03-30] MEDS: guaiFENesin 600 MG TABLET.ER PO SCH ×4 (08:03→20:52)
[2021-03-30] MEDS: HEPARIN SODIUM,PORCINE/PF 5,000 UNIT/0.5 ML SYRINGE SQ SCH ×3 (08:03→23:08)
[2021-03-30] MEDS: CHOLECALCIFEROL 25 MCG (1000 IU) TABLET PO SCH (08:03)
[2021-03-30] MEDS: FLUCONAZOLE 100 MG TAB PO SCH (08:04)
[2021-03-30] MEDS: methylPREDNISolone SOD SUCCI 40 MG/ML 1 ML VIAL IV SCH ×2 (08:04→20:51)
[2021-03-30] MEDS: FORMOTEROL FUMARATE 20 MCG/2 ML NEBU INHALATION SCH ×2 (08:57→20:12)
[2021-03-30] MEDS: BUDESONIDE 1 MG/2 ML NEBU INHALATION SCH ×2 (08:57→20:12)
[2021-03-30 13:06] LABS: Glucose,Whole Blood 131 mg/dL (75-99)
--- NOTE | 2021-03-30 14:47 | P.PN ---
Subjective Progress Note Date: 03/30/21 Principal diagnosis: COPD exacerbation This is a 70-year-old white female patient, with known history of COPD, she follows with Dr. Overton in the pulmonary clinic for the same, she has a baseline FEV1 of 35% of predicted, stage III COPD, the patient is on maintenance dose of azithromycin 250 mg on Wednesday schedule as well as maintenance dose prednisone 5 mg for prevention of frequent pulmonary infections and COPD exacerbation. Patient is a former smoker, and has history of glaucoma. Patient came into the emergency department on 03/23/2021 for evaluation of worsening shortness of breath. She recently completed a course of Levaquin for bronchitis last week. She is also on a prednisone taper. She has been taking her breathing treatments. She endorsed a nonproductive congested cough. She had previously required bronchoscopy to help clear the mucous plugs. She denied any fever, denied any chest pain, no hemoptysis, no abdominal pain and nausea v omiting or diarrhea. She was vaccinated for COVID-19. She tested negative for influenza A and B, RSV and COVID-19. Chest x-ray showed no acute lung disease. Blood work showed white blood cell count of 7.6, hemoglobin 15.2, platelet count of 307, patient is leukopenic with a lymphocyte count of 0.2, sodium is 133, the rest of the electrolytes are within normal limits, BUN is 18 creatinine 0.74. Patient has been started on IV Solu-Medrol 60 mg every 6 hours, she is on nebulized bronchodilators, and we will add doxycycline. The patient is seen today 03/25/2021 in follow-up on the regular medical floor. She is currently sitting up in bed. Awake and alert in no acute distress. Breathing a bit easier today compared to yesterday. Not quite back to her baseline. She is maintaining O2 saturations in the 90s on room air. She's been afebrile. Glucose 224. She is continued on DuoNeb inhalations, Pulmicort and Perforomist inhalations, IV Solu-Medrol. Empiric antibiotics in the form of doxycycline. She is on Diflucan as well. The patient is seen today 03/26/2021 in follow-up on the regular medical floor. She is currently sitting up in bed. Awake and alert in no acute distress. States she is still not back to her baseline. Still with a loose nonproductive cough. Dyspnea on exertion. Maintaining O2 saturations in the low 90s on room air. Placed on 2 L nasal cannula. She's afebrile. Blood glucose 123. She is continued on DuoNeb inhalations, Pulmicort and Perforomist inhalations, IV Solu- Medrol. Empiric antibiotics in the form of doxycycline. The patient is seen today 03/27/2021 in follow-up on the regular medical floor. She is currently sitting up in a chair at the bedside. Awake and alert in no acute distress. She states she is still not back to her baseline. Loose cough, congestion shortness of breath. Maintaining O2 saturations up to 99% on 2 L/m per nasal cannula. She's been afebrile. Hemodynamically stable. Blood glucose 128. She is continued on DuoNeb inhalations, Pulmicort and Perforomist inhalations, IV Solu-Medrol. Diflucan. Empiric antibiotics in the form of doxycycline. The patient is seen today 03/28/2021 in follow-up on the regular medical floor. She is currently sitting up in bed. Awake and alert in no acute distress. St ates her breathing is still about the same. Still with a loose nonproductive cough. She is maintaining O2 saturations up to 98% on 2 L/m per nasal cannula. She's afebrile. Hemodynamically stable. Blood glucose 124. She is continued on DuoNeb inhalations, Pulmicort and Perforomist inhalations, IV Solu-Medrol. Diflucan. Empiric antibiotics in the form of doxycycline. Plan is for bronchoscopy with BAL today. The patient is seen today 03/29/2021 in follow-up on the regular medical floor. She is currently sitting up in bed. Awake and alert in no acute distress. Her breathing is better today compared to yesterday. She is status post bronchoscopy with BAL with significant amount of mucus removed. Cultures pending. She is maintaining O2 saturations in the 90s on room air. She's been afebrile. Hemodynamically stable. Blood glucose 153. She is continued on DuoNeb inhalations, Pulmicort and Perforomist inhalations, IV Solu-Medrol. Diflucan. Empiric antibiotics in the form of doxycycline. The patient is seen today 03/30/2021 in follow-up on the regular medical floor. She is currently sitting up in a chair at the bedside. Awake and alert in no acute distress. Breathing better today compared to yesterday. Starting to feel back to her baseline. Maintain O2 saturations in the mid 90s on room air. She's afebrile. Bronchial wash cultures with preliminary gram-negative bacilli, moderate gram-positive cocci. Sodium 134. Potassium 4.7. Creatinine 0.70. Glucose 143. She remains on DuoNeb inhalations, Pulmicort and Perforomist inhalations, IV Solu-Medrol, antibiotics in the form of doxycycline. Remains on Diflucan. Objective - Vital Signs Vital signs: Vital Signs Temp 97.8 F 03/30/21 13:00 Pulse 100 03/30/21 13:00 Resp 18 03/30/21 13:00 BP 156/89 03/30/21 13:00 Pulse Ox 95 03/30/21 13:00 Intake & Output 03/29/21 03/30/21 03/30/21 18:59 06:59 18:59 Intake Total 600 Output Total 2 Balance -2 600 Intake: Oral 600 Output: Urine 2 Other: Voiding Method Toilet # Voids 2 - Exam GENERAL EXAM: Alert, pleasant 70-year-old female patient, on room air, fairly comfortable in no apparent distress. HEAD: Normocephalic. EYES: Normal reaction of pupils, equal size. NOSE: Clear with pink turbinates. THROAT: No erythema or exudates. NECK: No masses, no JVD. CHEST: No chest wall deformity. LUNGS: Equal air entry with bilateral end expiratory wheeze, diminished. CVS: S1 and S2 normal with no audible murmur, regular rhythm. ABDOMEN: No hepatosplenomegaly, normal bowel sounds, no guarding or rigidity. SPINE: No scoliosis or deformity SKIN: No rashes CENTRAL NERVOUS SYSTEM: No focal deficits, tone is normal in all 4 extremities. EXTREMITIES: There is no peripheral edema. No clubbing, no cyanosis. Peripheral pulses are intact. - Labs CBC & Chem 7: 03/23/21 14:52 03/30/21 05:42 Labs: Abnormal Lab Results - Last 24 Hours (Table) 03/29/21 03/29/21 03/30/21 Range/Units 17:39 20:01 05:42 Sodium 134 L (137-145) mmol/L BUN 25 H (7-17) mg/dL Glucose 143 H (74-99) mg/dL POC Glucose (mg/dL) 139 H 189 H (75-99) mg/dL 03/30/21 03/30/21 Range/Units 07:38 12:58 Sodium (137-145) mmol/L BUN (7-17) mg/dL Glucose (74-99) mg/dL POC Glucose (mg/dL) 119 H 131 H (75-99) mg/dL Microbiology - Last 24 Hours (Table) 03/28/21 13:32 Gram Stain - Preliminary Bronchoalviolar Lavage - Left Bronchial Washings Culture - Preliminary Gram Neg Bacilli 03/28/21 13:32 Acid Fast Bacilli Smear - Final Bronchoalviolar Lavage - Left Acid Fast Bacilli Culture - Preliminary Assessment and Plan Assessment: 1 Acute exacerbation of chronic obstructive pulmonary disease. Chest x-ray showed no evidence of acute pulmonary process, COVID-19, RSV, influenza A and B were negative. Bronchial wash culture showing gram-negative bacilli. 2 Severe COPD, with baseline FEV1 of 35% predicted, stage III COPD, usually not on home oxygen, on maintenance with prednisone 5 mg daily 3 Recent episode of bronchitis, recently completed Levaquin and prednisone taper on an outpatient basis 4 Chronic suppressive therapy with azithromycin for prevention of frequent exacerbations of COPD 5 Former smoker, currently in remission, quit smoking 12 years ago, carries [id number] smoking history 6 Glaucoma Plan: The patient was seen and evaluated by Dr. Parker Improved and on room air Awaiting final bronchial wash cultures Continue the current treatment plan for now Probable discharge in the a.m. We will continue to follow I, the cosigning physician, performed a history & physical examination of the patient. Lungs sounds with bilateral end expiratory wheeze, diminished. Maintaining good O2 saturations in the 90s on room air. I discussed the assessment and plan of care with my nurse practitioner, Francisca Madden. I attest to the above note as dictated by her.
--- NOTE | 2021-03-30 15:32 | P.PN ---
Progress Note - Text Chief Complaint: Short of breath This is a 70-year-old patient, follows with Dr. Mohan. [employer] Co Op Dr. Juan pritchett. Chronic stable medical conditions include hyperlipidemia,. Patient long- standing COPD. Patient for a month has been struggling with increasing shortness of breath. Has a rather congested cough not able to bring up anything. She's gone through steroids antibiotics in the last [address] Parker. Still wheezing. Denies any fever and chills. Appetite is fair. No change in her bowel pattern. Wheezing is present. Presents to the ER for the same. Admitted with COPD exacerbation, acute tracheal bronchitis, oropharyngeal candidiasis. Started on steroids, Mucinex, Diflucan. March 25: Some improvement in breathing. Bringing up some phlegm. Thick. Had about 75% of her lunch. Sitting up. March 26: Patient still congestive the chest. Not able to bring up much phlegm. Bronchitis steroids. Mucinex. Humidified oxygen. Discussed with the patient patient will benefit from bronchial lavage. March 27: Congested in the anterior chest. Planning for bronchoscopy. Not able to expectorate much. Anxious about the procedure. March 28: Remains congested. Saw the patient this morning. Pending bronchoscopy. Discussed with patient. March 29: Patient underwent bronchoscopy with lavage yesterday. A lot of thick infected appearing secretion was removed. This morning. Patient breathing is a bit better. Decreased congestion. Discussed with Dr. Parker. Follow. Oral intake better. Sitting up in a chair. March 30: Sitting up in a chair. Breathing congestion much better. Oral intake improved. Discussed with the patient. Awaiting cultures. Active Medications Acetaminophen (Acetaminophen Tab 325 Mg Tab) 650 mg PO Q6HR PRN PRN Reason: Mild Pain or Fever > 100.5 Al Hydroxide/Mg Hydroxide (Mag Hydrox/Al Hydrox/Simeth 30 Ml Cup) 15 ml PO Q6HR PRN PRN Reason: Indigestion Albuterol/Ipratropium (Ipratropium-Albuterol 3 Ml Neb) 3 ml INHALATION RT-Q4H [facility] Last Admin: 03/30/21 12:44 Dose: 3 ml Documented by: Alprazolam (Alprazolam 0.5 Mg Tab) 0.5 mg PO TID PRN PRN Reason: Anxiety Atorvastatin Calcium (Atorvastatin 10 Mg Tab) 10 mg PO W/SUPPER [facility] Last Admin: 03/29/21 16:49 Dose: 10 mg Documented by: Budesonide (Budesonide 1 Mg/2 Ml Nebu) 1 mg INHALATION RT-BID [facility] Last Admin: 03/30/21 08:57 Dose: 1 mg Documented by: Calcium Carbonate/Glycine (Calcium Carbonate 500 Mg Chewable) 1,000 mg PO Q4HR PRN PRN Reason: Dyspepsia Carbamazepine (Carbamazepine Chew 100 Mg Chew) 100 mg PO TID PRN PRN Reason: SEZIURE Cholecalciferol (Cholecalciferol 25 Mcg (1000 Iu) Tablet) 25 mcg PO DAILY [facility] Last Admin: 03/30/21 08:03 Dose: 25 mcg Documented by: Doxycycline Monohydrate (Doxycycline 100 Mg Cap) 100 mg PO BID [facility] Last Admin: 03/30/21 08:03 Dose: 100 mg Documented by: Fluconazole (Fluconazole 100 Mg Tab) 100 mg PO DAILY [facility] Last Admin: 03/30/21 08:04 Dose: 100 mg Documented by: Formoterol Fumarate (Formoterol Fumarate 20 Mcg/2 Ml Nebu) 20 mcg INHALATION RT-BID [facility] Last Admin: 03/30/21 08:57 Dose: 20 mcg Documented by: Guaifenesin (Guaifenesin 600 Mg Tablet.Er) 600 mg PO QID [facility] Last Admin: 03/30/21 13:02 Dose: 600 mg Documented by: Heparin Sodium (Porcine) (Heparin Sodium,Porcine/Pf 5,000 Unit/0.5 Ml Syringe) 5,000 unit SQ Q8HR [facility] Last Admin: 03/30/21 08:03 Dose: 5,000 unit Documented by: Insulin Aspart (Insulin Aspart (Novolog) 100 Unit/Ml Vial) 0 unit SQ ACHS [facility]; Protocol Last Admin: 03/30/21 13:02 Dose: 1 unit Documented by: Lactulose (Lactulose 20 Gm/30 Ml Cup) 20 gm PO DAILY PRN PRN Reason: Constipation Latanoprost (Latanoprost 0.005% Ophth Drops 2.5 Ml Btl) 1 drops BOTH EYES [facility] Last Admin: 03/29/21 20:19 Dose: 1 drops Documented by: Magnesium Hydroxide (Magnesium Hydroxide 2,400 Mg/10 Ml Cup) 2,400 mg PO DAILY PRN PRN Reason: Constipation Melatonin (Melatonin 3 Mg Tablet) 3 mg PO HS PRN PRN Reason: Insomnia Meloxicam (Meloxicam 7.5 Mg Tab) 15 mg PO DAILY PRN PRN Reason: Pain Methylprednisolone Sodium Succinate (Methylprednisolone Sod Succi 40 Mg/Ml 1 Ml Vial) 40 mg IV Q8HR [facility] Last Admin: 03/30/21 08:04 Dose: 40 mg Documented by: Naloxone HCl (Naloxone 0.4 Mg/Ml 1 Ml Vial) 0.2 mg IV Q2M PRN PRN Reason: Opioid Reversal Nystatin (Nystatin 100,000 Unit/Ml Susp 500,000 Unit/5 Ml Cup) 500,000 unit PO QID [facility] Last Admin: 03/30/21 12:17 Dose: Not Given Documented by: Ondansetron HCl (Ondansetron 4 Mg/2 Ml Vial) 4 mg IVP Q8HR PRN PRN Reason: Nausea And Vomiting Trazodone HCl (Trazodone Hcl 50 Mg Tab) 50 mg PO HS PRN PRN Reason: Insomnia Past medical history to include: COPD, hyperlipidemia Social history: Lives alone. Stop smoking 11 years ago. Smoked for about 31 years. No alcohol Family history: Father in his 50s from COPD was a smoker Physical examination: VITAL SIGNS: 97.8, 100, 18, 1 5689, 95% room air GENERAL: Sitting up in a chair, more comfortable. Not sounding congested EYES: Pupils equal. Conjunctiva normal. HEENT: External appearance of nose and ears normal, oral cavity grossly normal some white spots in the posterior pharynx. NECK: JVD not raised; masses not palpable. HEART: First and second heart sounds are normal; no edema. LUNGS:[ Respiratory rate increased; decreased breath sounds. ABDOMEN: Soft, nontender, liver spleen not palpable, no masses palpable. PSYCH: Alert and oriented x3; mood and affect normal. INVESTIGATIONS, reviewed in the clinical context: March 30: Potassium 4.7 creatinine 0.7 WBC 7.6 hemoglobin 15.2 platelets 307 sodium 133 potassium 4.9 BUN 18 creatinine 0.74 Influenza type A, type B, RSV, COVID 19 [PCR]: Not detected EKG tracing personally reviewed by me-sinus tachycardia. P pulmonale, rate 107 Chest x-ray film personally reviewed by me-hyperinflated lung. No obvious infiltrate Assessment and plan: -Acute COPD exacerbation and failed outpatient treatment in a ex-smoker Nebulized bronchodilators, IV steroids, inhaled steroids. Long-acting beta agonist. Follow with pulmonary -Acute severe tracheal bronchitis. Patient not able to expectorate. : Better Humidify oxygen. Mucinex 600 mg 4 times a day. Status post bronchial lavage. lot of infected secretion was removed. -Pharyngeal candidiasis Oral Diflucan -Hyperlipidemia Lipitor 10 mg with supper -Hyperglycemia secondary to steroids. No diabetes Doing better. Continue current medications. Cutback Solu-Medrol. Hopefully home tomorrow.
[2021-03-30 17:30] LABS: Glucose,Whole Blood 106 mg/dL (75-99)
[2021-03-30] MEDS: ATORVASTATIN 10 MG TAB PO SCH (17:38)
[2021-03-30 20:51] VITALS: RESP 20; TEMP 97.6
[2021-03-30] MEDS: LATANOPROST 0.005% OPHTH DROPS 2.5 ML BTL BOTH EYES SCH (20:55)
[2021-03-30] MEDS ORDERED: LEVOFLOXACIN 500 MG TAB PO SCH (21:00)
[2021-03-30 21:34] LABS: Glucose,Whole Blood 144 mg/dL (75-99)
[2021-03-31] MEDS: IPRATROPIUM-ALBUTEROL 3 ML NEB INHALATION SCH ×3 (03:17→12:55)
[2021-03-31 05:48] VITALS: BP 172/84
[2021-03-31 07:35] LABS: Glucose,Whole Blood 115 mg/dL (75-99)
[2021-03-31] MEDS: INSULIN ASPART (NovoLOG) 100 UNIT/ML VIAL SQ SCH ×2 (07:36→12:37)
[2021-03-31] MEDS: BUDESONIDE 1 MG/2 ML NEBU INHALATION SCH (08:29)
[2021-03-31] MEDS: FORMOTEROL FUMARATE 20 MCG/2 ML NEBU INHALATION SCH (08:29)
[2021-03-31 08:33] VITALS: PULSE 98
[2021-03-31] MEDS: guaiFENesin 600 MG TABLET.ER PO SCH (09:36)
[2021-03-31] MEDS: CHOLECALCIFEROL 25 MCG (1000 IU) TABLET PO SCH (09:36)
[2021-03-31] MEDS: methylPREDNISolone SOD SUCCI 40 MG/ML 1 ML VIAL IV SCH (09:36)
[2021-03-31] MEDS: HEPARIN SODIUM,PORCINE/PF 5,000 UNIT/0.5 ML SYRINGE SQ SCH (09:36)
[2021-03-31] MEDS: NYSTATIN 100,000 UNIT/ML SUSP 500,000 UNIT/5 ML CUP PO SCH ×2 (09:37→12:50)
[2021-03-31 12:34] LABS: Glucose,Whole Blood 102 mg/dL (75-99)
--- NOTE | 2021-03-31 19:59 | P.DS ---
Providers Date of admission: 03/26/21 07:16 Expected date of discharge: 03/31/21 Attending physician: Deonte Nolen Consults: 03/23/21 16:42 Consult Physician Routine Consulting Provider: Vinny Henao Consult Reason/Comments: COPD exacerbation Do you want consulting provider notified?: Yes Primary care physician: [facility] Course: Chief Complaint: Short of breath This is a 70-year-old patient, follows with Dr. Mohan. [employer] Dr. Praker. Chronic stable medical conditions include hyperlipidemia,. Patient long-standing COPD. Patient for a month has been struggling with increasing shortness of breath. Has a rather congested cough not able to bring up anything. She's gone through steroids antibiotics in the last [address] Parker. Still wheezing. Denies any fever and chills. Appetite is fair. No change in her bowel pattern. Wheezing is present. Presents to the ER for the same. Admitted with COPD exacerbation, acute tracheal bronchitis, oropharyngeal candidiasis. Started on steroids, Mucinex, Diflucan. March 25: Some improvement in breathing. Bringing up some phlegm. Thick. Had about 75% of her lunch. Sitting up. March 26: Patient still congestive the chest. Not able to bring up much phlegm. Bronchitis steroids. Mucinex. Humidified oxygen. Discussed with the patient patient will benefit from bronchial lavage. March 27: Congested in the anterior chest. Planning for bronchoscopy. Not able to expectorate much. Anxious about the procedure. March 28: Remains congested. Saw the patient this morning. Pending bronchoscopy. Discussed with patient. March 29: Patient underwent bronchoscopy with lavage yesterday. A lot of thick infected appearing secretion was removed. This morning. Patient breathing is a bit better. Decreased congestion. Discussed with Dr. Parker. Follow. Oral intake better. Sitting up in a chair. March 30: Sitting up in a chair. Breathing congestion much better. Oral intake improved. Discussed with the patient. Awaiting cultures. March 31: Doing much better. Up and about in the hallway. Chest congestion greatly improved. Discussed with pulmonary. Patient be discharged. Patient seen by Dr. Patel today. Discussion and discharge planning more than 35 minutes Consultation: Dr. Patel partners from pulmonary Past medical history to include: COPD, hyperlipidemia Social history: Lives alone. Stop smoking 11 years ago. Smoked for about 31 years. No alcohol Family history: Father in his 50s from COPD was a smoker Physical examination: VITAL SIGNS: 97.6, 56, 20, 172/84, 97% on room air GENERAL: Comfortable, not congested EYES: Pupils equal. Conjunctiva normal. HEENT: External appearance of nose and ears normal, oral cavity grossly normal some white spots in the posterior pharynx. NECK: JVD not raised; masses not palpable. HEART: First and second heart sounds are normal; no edema. LUNGS:[ Respiratory rate increased; improved air entry. ABDOMEN: Soft, nontender, liver spleen not palpable, no masses palpable. PSYCH: Alert and oriented x3; mood and affect normal. INVESTIGATIONS, reviewed in the clinical context: March 31: Bronchial culture: Stenotrophomonas maltophilia March 30: Potassium 4.7 creatinine 0.7 WBC 7.6 hemoglobin 15.2 platelets 307 sodium 133 potassium 4.9 BUN 18 creatinine 0.74 Influenza type A, type B, RSV, COVID 19 [PCR]: Not detected EKG tracing personally reviewed by me-sinus tachycardia. P pulmonale, rate 107 Chest x-ray film personally reviewed by me-hyperinflated lung. No obvious infiltrate Assessment and plan: -Acute COPD exacerbation and failed outpatient treatment in a ex-smoker Nebulized bronchodilators, IV steroids, inhaled steroids. Long-acting beta agonist. Discharged on tapering prednisone. -Acute severe tracheal bronchitis. Patient not able to expectorate. : Better Humidify oxygen. Mucinex 600 mg 4 times a day. Status post bronchial lavage. lot of infected secretion was removed. Cultures positive for Stenotrophomonas maltophilia. We will add Levaquin. -Pharyngeal candidiasis Oral Diflucan -Hyperlipidemia Lipitor 10 mg with supper -Hyperglycemia secondary to steroids. No diabetes Disposition: Home Plan - Discharge Summary New Discharge Prescriptions: New predniSONE 10 mg PO DAILY #30 tab Continue Tiotropium [place] [Spiriva] 1 cap INHALATION RT-DAILY Mometasone/Formoterol [Dulera 200 Mcg-5 Mcg Inhaler] 2 puff INHALATION RT-BID Bimatoprost [Lumigan .01% Ophth Soln] 1 drop BOTH EYES HS carBAMazepine 100 mg PO TID PRN PRN Reason: SEZIURE Albuterol Nebulized [Ventolin Nebulized] 2.5 mg INHALATION RT-Q4H PRN PRN Reason: Shortness Of Breath traZODone HCL [Desyrel] 50 mg PO HS PRN PRN Reason: Insomnia Meloxicam [Mobic] 15 mg PO DAILY PRN PRN Reason: Pain Cholecalciferol [Vitamin D3 (25 Mcg = 1000 Iu)] 25 mcg PO DAILY Atorvastatin [Lipitor] 10 mg PO W/SUPPER Discontinued predniSONE 5 mg PO DIRECTED Azithromycin [Zithromax] 250 mg PO MOWEFR Nystatin 100,000 Unit/ml Susp [Mycostatin Oral Susp] 5 ml PO QID predniSONE See Taper PO DAILY Discharge Medication List Bimatoprost [Lumigan .01% Ophth Soln] 1 drop BOTH EYES HS 10/13/17 [History] Mometasone/Formoterol [Dulera 200 Mcg-5 Mcg Inhaler] 2 puff INHALATION RT-BID 10/13/17 [History] Tiotropium [place] [Spiriva] 1 cap INHALATION RT-DAILY 10/13/17 [History] Albuterol Nebulized [Ventolin Nebulized] 2.5 mg INHALATION RT-Q4H PRN 03/19/21 [History] Atorvastatin [Lipitor] 10 mg PO W/SUPPER 03/19/21 [History] Cholecalciferol [Vitamin D3 (25 Mcg = 1000 Iu)] 25 mcg PO DAILY 03/19/21 [History] Meloxicam [Mobic] 15 mg PO DAILY PRN 03/19/21 [History] carBAMazepine 100 mg PO TID PRN 03/19/21 [History] traZODone HCL [Desyrel] 50 mg PO HS PRN 03/19/21 [History] predniSONE 10 mg PO DAILY #30 tab 03/31/21 [Rx] Follow up Appointment(s)/Referral(s): Margarito Parker MD [STAFF PHYSICIAN] - 04/07/21 10:30 am Jluis Mohan DO [Primary Care Provider] - 04/02/21 1:40 pm Patient Instructions/Handouts: Prednisone (By mouth), COPD (Chronic Obstructive Pulmonary Disease) (DC), How Your Lungs Work (ED) Activity/Diet/Wound Care/Special Instructions: antobiotics per pulmonary Discharge Disposition: HOME SELF-CARE
== END 2021-03-31 13:47 | disposition home or self-care (01) ==
LOC: EC 13:31 → 6NMEDSUR 16:47 → 5NMEDONC 03-24 14:39 → OBSVTOIN 03-26 07:16 → INTOOBSV 03-26 07:16 → 5NMEDONC 03-29 12:16 → UNDODISIN 03-31 13:47
PROVIDERS: ADMIT Hospitalist; ATTEND Hospitalist
DX: J44.1 Chronic obstructive pulmonary disease with (acute) exacerbation (principal); J44.0 Chronic obstructive pulmonary disease with (acute) lower respiratory infection; J20.9 Acute bronchitis, unspecified; B37.0 Candidal stomatitis; E78.5 Hyperlipidemia, unspecified; R73.9 Hyperglycemia, unspecified; T38.0X5A Adverse effect of glucocorticoids and synthetic analogues, initial encounter; M79.2 Neuralgia and neuritis, unspecified; H40.053 Ocular hypertension, bilateral; H40.9 Unspecified glaucoma; E87.1 Hypo-osmolality and hyponatremia; Z20.822 Contact with and (suspected) exposure to COVID-19; Z87.891 Personal history of nicotine dependence; Z79.899 Other long term (current) drug therapy; Z79.51 Long term (current) use of inhaled steroids; Z88.8 Allergy status to other drugs, medicaments and biological substances; Z83.6 Family history of other diseases of the respiratory system; Z82.3 Family history of stroke; Z82.49 Family history of ischemic heart disease and other diseases of the circulatory system; Z82.5 Family history of asthma and other chronic lower respiratory diseases
CPT/HCPCS: 96376 ×5; 96372 ×5; 96366 ×2; 96365; 96375; 99285; 36415; 94668 ×3; 94640 ×17; 94760 ×4; 94667; 93005; 87798 ×3; 87496; 87498; 87529; 80053; 80048; 83735; 84132; 85025; 87252; 87502; 87634; 87070; 87205; 87116; 87102; 87077; 87186; 87206; 87636; 71046; 31624; G0378 ×10; J2001; J2920 ×8; J2930 ×4; J3475; J2704; J1644 ×9

== ENCOUNTER 2021-07-12 06:35 | Inpatient (IN) | payer MEDICARE ==
--- NOTE | 2021-07-12 06:48 | ED ---
SOB HPI - General Stated Complaint: Difficulty Breathing Time Seen by Provider: 07/12/21 06:37 Source: patient, EMS, RN notes reviewed Mode of arrival: EMS Limitations: no limitations - History of Present Illness Initial Comments: this is a 70-year-old female presents emergency department via EMS with chief complaint shortness of breath. Patient states symptoms started yesterday afternoon. Patient states she was getting some relief with her albuterol treatments but states helping at this time. Patient does have a history of COPD was a former smoker states that she has a nonproductive cough at this time which is chronic for the patient. She denies any chest pain, leg swelling. Patient has no history of CHF. Patient denies any recent sick contacts. Patient was hospitalized back in February for similar reasons. - Related Data Home Medications Medication Instructions Recorded Confirmed Bimatoprost [Lumigan .01% Ophth 1 drop BOTH EYES HS 10/13/17 03/23/21 Soln] Mometasone/Formoterol [Dulera 200 2 puff INHALATION RT-BID 10/13/17 03/23/21 Mcg-5 Mcg Inhaler] Tiotropium [place] [Spiriva] 1 cap INHALATION RT-DAILY 10/13/17 03/23/21 Albuterol Nebulized [Ventolin 2.5 mg INHALATION RT-Q4H PRN 03/19/21 03/23/21 Nebulized] Atorvastatin [Lipitor] 10 mg PO W/SUPPER 03/19/21 03/23/21 Cholecalciferol [Vitamin D3 (25 25 mcg PO DAILY 03/19/21 03/23/21 Mcg = 1000 Iu)] Meloxicam [Mobic] 15 mg PO DAILY PRN 03/19/21 03/23/21 carBAMazepine 100 mg PO TID PRN 03/19/21 03/23/21 traZODone HCL [Desyrel] 50 mg PO HS PRN 03/19/21 03/23/21 Previous Rx's Medication Instructions Recorded Levofloxacin [Levaquin] 750 mg PO DAILY #7 tab 03/31/21 predniSONE 10 mg PO DAILY #30 tab 03/31/21 Allergies Allergy/AdvReac Type Severity Reaction Status Date / Time budesonide [From Symbicort] AdvReac ANXIETY Verified 07/12/21 06:40 formoterol [From Symbicort] AdvReac ANXIETY Verified 07/12/21 06:40 Review of Systems ROS Statement: Those systems with pertinent positive or pertinent negative responses have been documented in the HPI. ROS Other: All systems not noted in ROS Statement are negative. Past Medical History Past Medical History: COPD, Eye Disorder Additional Past Medical History / Comment(s): Bronchitis, bilateral eyes with increased intraocular pressure-not glaucoma yet, neuralgia R side forhead in past. History of Any Multi-Drug Resistant Organisms: None Reported Past Surgical History: Breast Surgery, Hernia Repair, Orthopedic Surgery Additional Past Surgical History / Comment(s): Bilateral carpal tunnel; bilateral cataract removal with lens, bronchoscopy, R inguinal hernia repair, colonoscopy, benign L breast biopsy. Past Anesthesia/Blood Transfusion Reactions: No Reported Reaction Smoking Status: Former smoker - Past Family History Father Family Medical History: COPD Additional Family Medical History / Comment(s): Father in his 50s of COPD. He was a smoker. Mother Family Medical History: CVA/TIA, Hypertension, Pneumonia Additional Family Medical History / Comment(s): Mother fell at age 85 and fractured her hip. Post op she became HTN and had a stroke and then ended up with pneumonia and . General Exam General appearance: alert, in no apparent distress Head exam: Present: atraumatic, normocephalic, normal inspection Eye exam: Present: normal appearance, PERRL, EOMI. Absent: scleral icterus, conjunctival injection, periorbital swelling ENT exam: Present: normal exam, normal oropharynx, mucous membranes moist Neck exam: Present: normal inspection, full ROM. Absent: tenderness, meningismus, lymphadenopathy Respiratory exam: Present: wheezes, rhonchi. Absent: normal lung sounds bilaterally, respiratory distress, rales, stridor Cardiovascular Exam: Present: regular rate, normal rhythm, normal heart sounds. Absent: systolic murmur, diastolic murmur, rubs, gallop, clicks Extremities exam: Absent: pedal edema Neurological exam: Present: alert Psychiatric exam: Present: normal affect, normal mood Skin exam: Present: warm, dry, intact, normal color. Absent: rash Course Vital Signs 07/12/21 07/12/21 07/12/21 06:41 06:51 06:52 Temperature Pulse Rate 129 H 134 H Respiratory 28 H 26 H 26 H Rate Blood Pressure 149/119 148/90 O2 Sat by Pulse 98 96 Oximetry 07/12/21 07/12/21 07/12/21 07:30 07:34 07:50 Temperature 98 F Pulse Rate 120 H 115 H 129 H Respiratory 24 Rate Blood Pressure 148/90 O2 Sat by Pulse 100 Oximetry Medical Decision Making - Medical Decision Making 70-year-old female presented for a dyspnea. Patient is having acute COPD exacerbation x-ray does not reveal a significant pneumonia. Patient is negative COVID-19. Patient does have multiple treatments prior arrival and emergency department with minimal improvement. Patient continues to have dyspnea with talking, ambulation. - Lab Data Result diagrams: 07/12/21 06:48 07/12/21 06:48 Lab Results 07/12/21 07/12/21 07/12/21 Range/Units 06:48 06:48 06:48 WBC 7.7 (3.8-10.6) k/uL RBC 4.28 (3.80-5.40) m/uL Hgb 13.2 (11.4-16.0) gm/dL Hct 40.8 (34.0-46.0) % MCV 95.3 (80.0-100.0) fL MCH 30.8 (25.0-35.0) pg MCHC 32.3 (31.0-37.0) g/dL RDW 12.6 (11.5-15.5) % Plt Count 347 (150-450) k/uL MPV 7.3 Neutrophils % 73 % Lymphocytes % 17 % Monocytes % 8 % Eosinophils % 0 % Basophils % 0 % Neutrophils # 5.6 (1.3-7.7) k/uL Lymphocytes # 1.3 (1.0-4.8) k/uL Monocytes # 0.6 (0-1.0) k/uL Eosinophils # 0.0 (0-0.7) k/uL Basophils # 0.0 (0-0.2) k/uL PT 10.6 (9.0-12.0) sec INR 1.0 (<1.2) APTT 19.3 L (22.0-30.0) sec Sodium 137 (137-145) mmol/L Potassium 4.0 (3.5-5.1) mmol/L Chloride 104 (98-107) mmol/L Carbon Dioxide 26 (22-30) mmol/L Anion Gap 7 mmol/L BUN 20 H (7-17) mg/dL Creatinine 0.79 (0.52-1.04) mg/dL Est GFR (CKD-EPI)AfAm 89 (>60 ml/min/1.73 sqM) Est GFR (CKD-EPI)NonAf 77 (>60 ml/min/1.73 sqM) Glucose 141 H (74-99) mg/dL Plasma Lactic Acid Jer (0.7-2.0) mmol/L Calcium 9.0 (8.4-10.2) mg/dL Magnesium 1.9 (1.6-2.3) mg/dL Total Bilirubin 0.5 (0.2-1.3) mg/dL AST 20 (14-36) U/L ALT 22 (4-34) U/L Alkaline Phosphatase 75 (38-126) U/L Troponin I (0.000-0.034) ng/mL Total Protein 6.3 (6.3-8.2) g/dL Albumin 3.6 (3.5-5.0) g/dL Coronavirus (PCR) (Not Detectd) 07/12/21 07/12/21 07/12/21 Range/Units 06:48 06:48 07:33 WBC (3.8-10.6) k/uL RBC (3.80-5.40) m/uL Hgb (11.4-16.0) gm/dL Hct (34.0-46.0) % MCV (80.0-100.0) fL MCH (25.0-35.0) pg MCHC (31.0-37.0) g/dL RDW (11.5-15.5) % Plt Count (150-450) k/uL MPV Neutrophils % % Lymphocytes % % Monocytes % % Eosinophils % % Basophils % % Neutrophils # (1.3-7.7) k/uL Lymphocytes # (1.0-4.8) k/uL Monocytes # (0-1.0) k/uL Eosinophils # (0-0.7) k/uL Basophils # (0-0.2) k/uL PT (9.0-12.0) sec INR (<1.2) APTT (22.0-30.0) sec Sodium (137-145) mmol/L Potassium (3.5-5.1) mmol/L Chloride (98-107) mmol/L Carbon Dioxide (22-30) mmol/L Anion Gap mmol/L BUN (7-17) mg/dL Creatinine (0.52-1.04) mg/dL Est GFR (CKD-EPI)AfAm (>60 ml/min/1.73 sqM) Est GFR (CKD-EPI)NonAf (>60 ml/min/1.73 sqM) Glucose (74-99) mg/dL Plasma Lactic Acid Jer 2.2 H* (0.7-2.0) mmol/L Calcium (8.4-10.2) mg/dL Magnesium (1.6-2.3) mg/dL Total Bilirubin (0.2-1.3) mg/dL AST (14-36) U/L ALT (4-34) U/L Alkaline Phosphatase (38-126) U/L Troponin I <0.012 (0.000-0.034) ng/mL Total Protein (6.3-8.2) g/dL Albumin (3.5-5.0) g/dL Coronavirus (PCR) Not Detected (Not Detectd) - EKG Data -: EKG Interpreted by Me EKG Comments: EKG performed at 6:55 sinus tachycardia with a rate of 126 IN 161 QRS 82 QT/QTC 291/365 Disposition Clinical Impression: Acute exacerbation of chronic obstructive airways disease Disposition: ADMITTED IP TO THIS HOSP Condition: Fair Referrals: Jluis Mohan DO [Primary Care Provider] - 1-2 days
[2021-07-12 07:04] LABS: Basophils % (A) 0 %; Eosinophils % (A) 0 %; HCT 40.8 % (34.0-46.0); HGB 13.2 gm/dL (11.4-16.0); Lymphocytes # (A) 1.3 k/uL (1.0-4.8); Lymphocytes % (A) 17 %; MCH 30.8 pg (25.0-35.0); MCHC 32.3 g/dL (31.0-37.0); MCV 95.3 fL (80.0-100.0); Mean Platelet Volume 7.3; Monocytes # (A) 0.6 k/uL (0-1.0); Monocytes % (A) 8 %; Neutrophils # (A) 5.6 k/uL (1.3-7.7); Neutrophils % (A) 73 %; Platelet Count 347 k/uL (150-450); RBC 4.28 m/uL (3.80-5.40); RDW 12.6 % (11.5-15.5); WBC 7.7 k/uL (3.8-10.6)
[2021-07-12 07:20] LABS: Albumin 3.6 g/dL (3.5-5.0); Magnesium 1.9 mg/dL (1.6-2.3); Total Bilirubin 0.5 mg/dL (0.2-1.3); Total Protein 6.3 g/dL (6.3-8.2)
[2021-07-12 07:22] LABS: Prothrombin Time 10.6 sec (9.0-12.0)
[2021-07-12] MEDS ORDERED: IPRATROPIUM-ALBUTEROL 3 ML NEB INHALATION STA (07:26)
--- NOTE | 2021-07-12 07:28 | XR ---
EXAMINATION TYPE: XR chest 2V DATE OF EXAM: 07/12/2021 7:24 AM COMPARISON: 03/23/2021 TECHNIQUE: XR chest 2V Frontal and lateral views of the chest. CLINICAL INDICATION:Female, 70 years old with history of difficulty breathing; FINDINGS: Lungs/Pleura: There is flattening of the diaphragm with increased lucency of the lungs. No evidence o f pneumothorax, pleural effusion or focal consolidation. Pulmonary vascularity: Unremarkable. Heart/mediastinum: Cardiomediastinal silhouette is unremarkable. Musculoskeletal: No acute osseous pathology. IMPRESSION: 1. No acute cardiopulmonary disease process. 2. COPD changes.
[2021-07-12 07:38] LABS: Partial Thromboplastin Time 19.3 sec (22.0-30.0)
[2021-07-12] MEDS ORDERED: AZITHROMYCIN 500 MG in SODIUM CHLORIDE 0.9% 250 ML IVPB STA (08:12)
[2021-07-12] MEDS ORDERED: traZODone HCL 50 MG TAB PO PRN (08:15)
[2021-07-12] MEDS: IPRATROPIUM-ALBUTEROL 3 ML NEB INHALATION PRN ×2 (09:11→12:13)
[2021-07-12] MEDS: ALBUTEROL NEBULIZED 2.5 MG/3 ML INHALATION SCH ×3 (09:16→19:29)
[2021-07-12] MEDS ORDERED: MELOXICAM 7.5 MG TAB PO PRN (10:24)
--- NOTE | 2021-07-12 12:31 | P.CNPUL ---
History of Present Illness Consult date: 07/12/21 Requesting physician: Deonte Nolen Reason for consult: COPD Chief complaint: Shortness of breath, cough, and wheezing History of present illness: This is a 70-year-old female, familiar to my service, known to have history of severe COPD, FEV1 is 35% of the predicted value. Patient is maintained on Zithromax every other day, prednisone 5 mg daily, she is a former smoker, known history of glaucoma, her last admission to the hospital was back in February of 2021, at that time the patient came in with acute exacerbation of COPD, and she underwent bronchoscopy and BAL. Patient was found to have stenotrophomonas infection, treated with proper antibiotics, I believe the patient received Bact rim, and she responded well to treatment. Patient is here today with 2 days history of cough wheezing shortness of breath, cough, however she is unable to bring up any phlegm, intermittent wheezing, and not feeling well. No fever no chills no hemoptysis no chest pain. Chest x-ray showed no evidence of active disease, patient was admitted, and this consult was initiated. Review of Systems Constitutional: Denies chills, Denies fever Eyes: denies blurred vision, denies pain Ears, nose, mouth and throat: Denies headache, Denies sore throat Cardiovascular: Denies chest pain, Denies shortness of breath Respiratory: As noted in HPI Gastrointestinal: Denies abdominal pain, Denies diarrhea, Denies nausea, Denies vomiting Genitourinary: Denies dysuria, Denies hematuria Musculoskeletal: Denies myalgias Integumentary: Denies pruritus, Denies rash Neurological: Denies numbness, Denies weakness Psychiatric: Denies anxiety, Denies depression Endocrine: Denies fatigue, Denies weight change Past Medical History Past Medical History: COPD, Eye Disorder Additional Past Medical History / Comment(s): Bronchitis, bilateral eyes with increased intraocular pressure-not glaucoma yet, neuralgia R side forhead in past. History of Any Multi-Drug Resistant Organisms: None Reported Past Surgical History: Breast Surgery, Hernia Repair, Orthopedic Surgery Additional Past Surgical History / Comment(s): Bilateral carpal tunnel; bilateral cataract removal with lens, bronchoscopy, R inguinal hernia repair, colonoscopy, benign L breast biopsy. Past Anesthesia/Blood Transfusion Reactions: No Reported Reaction Smoking Status: Former smoker - Past Family History Father Family Medical History: COPD Additional Family Medical History / Comment(s): Father in his 50s of COPD. He was a smoker. Mother Family Medical History: CVA/TIA, Hypertension, Pneumonia Additional Family Medical History / Comment(s): Mother fell at age 85 and fractured her hip. Post op she became HTN and had a stroke and then ended up with pneumonia and . Medications and Allergies Home Medications Medication Instructions Recorded Confirmed Type Bimatoprost [Lumigan .01% Ophth 1 drop BOTH EYES HS 10/13/17 07/12/21 History Soln] Mometasone/Formoterol [Dulera 200 2 puff INHALATION RT-BID 10/13/17 07/12/21 History Mcg-5 Mcg Inhaler] Tiotropium [place] [Spiriva] 1 cap INHALATION RT-DAILY 10/13/17 07/12/21 History Albuterol Nebulized [Ventolin 2.5 mg INHALATION RT-Q4H PRN 03/19/21 07/12/21 History Nebulized] Atorvastatin [Lipitor] 10 mg PO W/SUPPER 03/19/21 07/12/21 History Cholecalciferol [Vitamin D3 (25 25 mcg PO DAILY 03/19/21 07/12/21 History Mcg = 1000 Iu)] Meloxicam [Mobic] 15 mg PO DAILY PRN 03/19/21 07/12/21 History carBAMazepine 100 mg PO TID PRN 03/19/21 07/12/21 History traZODone HCL [Desyrel] 50 mg PO HS PRN 03/19/21 07/12/21 History Azithromycin 250 mg PO MOWEFR 07/12/21 07/12/21 History Calcium Carbonate/Vitamin D3 1 cap PO DAILY 07/12/21 07/12/21 History [Calcium 600 mg-D3 10 Mcg (400 Iu)] methylPREDNISolone [Medrol Dose See Taper PO DAILY 07/12/21 07/12/21 History Pack] predniSONE 5 mg PO Q48H 07/12/21 07/12/21 History Allergies Allergy/AdvReac Type Severity Reaction Status Date / Time budesonide [From Symbicort] AdvReac ANXIETY Verified 07/12/21 08:19 formoterol [From Symbicort] AdvReac ANXIETY Verified 07/12/21 08:19 Physical Exam Vitals: Vital Signs Temp Pulse Resp BP Pulse Ox 07/12/21 12:14 117 H 07/12/21 09:24 125 H 07/12/21 09:16 135 H 07/12/21 07:50 129 H 07/12/21 07:34 98 F 115 H 24 148/90 100 07/12/21 07:30 120 H 07/12/21 06:52 26 H 07/12/21 06:51 134 H 26 H 148/90 96 07/12/21 06:41 129 H 28 H 149/119 98 Intake and Output 07/11/21 07/12/21 07/12/21 22:59 06:59 14:59 Other: Weight 60.328 kg Physical Exam: Revealed a 70-year-old female in no distress, on few liters nasal cannula. Head: Atraumatic normocephalic. HEENT:[Neck is supple.] [No neck masses.] [No thyromegaly.] [No JVD.] Chest: [Symmetrical chest expansion, diffuse rhonchi and wheezes noted bilaterally. Cardiac Exam: [Normal S1 and S2, no S3 gallop, no murmur.] Abdomen: [Soft, nontender, no megaly, no rebound, no guarding, normal bowel sounds.] Extremities: [No clubbing, no edema, no cyanosis.] Neurological Exam: [No focal neurologic deficit.] Oriented 3. Psychiatric: Normal mood affect and normal mental status examination. Skin: No rashes. Results - Laboratory Findings CBC and BMP: 07/12/21 06:48 07/12/21 06:48 PT/INR, D-dimer PT 10.6 sec (9.0-12.0) 07/12/21 06:48 INR 1.0 (<1.2) 07/12/21 06:48 Abnormal lab findings: Abnormal Labs 07/12/21 07/12/21 07/12/21 06:48 06:48 06:48 APTT 19.3 L BUN 20 H Glucose 141 H Plasma Lactic Acid Jer 2.2 H* 07/12/21 10:06 APTT BUN Glucose Plasma Lactic Acid Jer 2.1 H* - Diagnostic Findings Chest x-ray: image reviewed (As noted in HPI) Assessment and Plan Assessment: Impression: Acute exacerbation of COPD Acute purulent tracheobronchitis, previous history of stenotrophomonas infection History of severe COPD FEV1 of 35%. Former smoker. History of glaucoma. Recommendation: Patient was seen and examined in the ER. Agree with admitting the patient. Patient will be placed on oxygen, bronchodilators, IV Solu-Medrol, antibiotics in the form of Bactrim, Check sputum cultures, We'll continue to follow. In the past, patient required bronchoscopy and BAL to speed up her recovery, not certain whether she will need bronchoscopy and BAL this time, this decision will be made in the next couple of days. Time with Patient: Greater than 30
[2021-07-12] MEDS: methylPREDNISolone SOD SUCCI 125 MG/2 ML VIAL IV SCH ×3 (13:11→22:43)
[2021-07-12] MEDS: SULFAMETHOX-TMP 800-160MG 1 EACH TAB PO SCH ×2 (13:11→22:42)
[2021-07-12] MEDS ORDERED: FLUCONAZOLE 100 MG TAB PO ONE (13:15)
[2021-07-12] MEDS ORDERED: ACETAMINOPHEN TAB 325 MG TAB PO PRN (14:46)
[2021-07-12] MEDS ORDERED: ONDANSETRON 4 MG/2 ML VIAL IVP PRN (14:46)
[2021-07-12] MEDS ORDERED: LACTULOSE 20 GM/30 ML CUP PO PRN (14:46)
[2021-07-12] MEDS ORDERED: CALCIUM CARBONATE 500 MG CHEWABLE PO PRN (14:46)
[2021-07-12] MEDS ORDERED: NALOXONE 0.4 MG/ML 1 ML VIAL IV PRN (14:46)
[2021-07-12] MEDS ORDERED: ALPRAZolam 0.25 MG TAB PO PRN (14:46)
[2021-07-12] MEDS ORDERED: MELATONIN 3 MG TABLET PO PRN (14:46)
--- NOTE | 2021-07-12 14:49 | P.HPIM ---
History of Present Illness H&P Date: 07/12/21 Chief Complaint: Short of breath This is a 70-year-old patient, follows with Dr. Mohan. [employer] Dr. Parker. Chronic stable medical conditions include hyperlipidemia,. long- standing COPD. patient was admitted in December 2020. Was not responding to regular treatment for COPD was underwent bronchoscopy lot of secretions was removed. Finally was discharged. On dislocation patient remains to be somewhat short of breath. But yesterday became increasingly short of breath. Started wheezing quite a bit. Cough not able to produce much slightly congested in the chest. No fever no chills. Appetite has been fine. No edema. No chest pain or palpitation. Review of systems: GEN.: Tired EYES: None HEENT: None NECK: None RESPIRATORY: As above CARDIOVASCULAR: None GASTROINTESTINAL: None GENITOURINARY: None MUSCULOSKELETAL: None LYMPHATICS: None HEMATOLOGICAL: None PSYCHIATRY: None NEUROLOGICAL: None Past medical history to include: COPD, hyperlipidemia Social history: Lives alone. Stop smoking around 1999. Smoked for about 31 years. No alcohol Family history: Father in his 50s from COPD was a smoker Physical examination: VITAL SIGNS: 98, 129, 28, 149/90, 96% on 4 L GENERAL: BMI 98.6, sitting up in bed, awake, short of breath. EYES: Pupils equal. Conjunctiva normal. HEENT: External appearance of nose and ears normal, oral cavity white spots in the r pharynx. NECK: JVD not raised; masses not palpable. HEART: First and second heart sounds are normal; no edema. LUNGS:[ Respiratory rate increased, diminished breath sounds prolonged ex piration and wheezing. ABDOMEN: Soft, nontender, liver spleen not palpable, no masses palpable. PSYCH: [Alert and oriented x3; mood and affect slightly anxious. MUSCULOSKELETAL:No Clubbing/cyanosis;muscles-grossly intact. Evidence of OA NEUROLOGICAL: Cranial nerves grossly intact; no facial asymmetry, power and sensation grossly intact. LYMPHATICS: No lymph nodes palpable in the axilla and neck INVESTIGATIONS, reviewed in the clinical context: White count 7.7 hemoglobin 13.2 platelets 347 potassium 4 creatinine 0.79 glucose 141 Lactic acid 2.2 Troponin I less than 0.012 proBNP 124 Coronavirus [PCR]: Not detected EKG tracing personally reviewed by Mauro urbina, sinus tachycardia rate 126 Chest x-ray film personally reviewed by me-hyperinflated. No obvious infiltrate Assessment and plan: -Acute COPD exacerbation in a ex-smoker Nebulized bronchodilators every 4 , IV steroids, inhaled steroids. Long-acting beta agonist. -Pharyngeal candidiasis, from steroids Oral Diflucan -Hyperlipidemia Lipitor 10 mg with supper -Lactic acidosis type II. No sepsis -Hyperglycemia secondary to steroids. No diabetes Nebulized bronchodilators, IV steroids, inhaled steroids, long-acting beta agonists. Subcu Lovenox. Diflucan. Resume home medications. Pulmonary consulted. Care was discussed with the patient. Humidify oxygen. Given the complexity and severity of patient's condition expect the patient to be in the hospital at least for 2 overnights Past Medical History Past Medical History: COPD, Eye Disorder Additional Past Medical History / Comment(s): Bronchitis, bilateral eyes with increased intraocular pressure-not glaucoma yet, neuralgia R side forhead in past. History of Any Multi-Drug Resistant Organisms: None Reported Past Surgical History: Breast Surgery, Hernia Repair, Orthopedic Surgery Additional Past Surgical History / Comment(s): Bilateral carpal tunnel; bilateral cataract removal with lens, bronchoscopy, R inguinal hernia repair, colonoscopy, benign L breast biopsy. Past Anesthesia/Blood Transfusion Reactions: No Reported Reaction Smoking Status: Former smoker - Past Family History Father Family Medical History: COPD Additional Family Medical History / Comment(s): Father in his 50s of COPD. He was a smoker. Mother Family Medical History: CVA/TIA, Hypertension, Pneumonia Additional Family Medical History / Comment(s): Mother fell at age 85 and fractured her hip. Post op she became HTN and had a stroke and then ended up with pneumonia and . Medications and Allergies Home Medications Medication Instructions Recorded Confirmed Type Bimatoprost [Lumigan .01% Ophth 1 drop BOTH EYES HS 10/13/17 07/12/21 History Soln] Mometasone/Formoterol [Dulera 200 2 puff INHALATION RT-BID 10/13/17 07/12/21 History Mcg-5 Mcg Inhaler] Tiotropium [place] [Spiriva] 1 cap INHALATION RT-DAILY 10/13/17 07/12/21 History Albuterol Nebulized [Ventolin 2.5 mg INHALATION RT-Q4H PRN 03/19/21 07/12/21 History Nebulized] Atorvastatin [Lipitor] 10 mg PO W/SUPPER 03/19/21 07/12/21 History Cholecalciferol [Vitamin D3 (25 25 mcg PO DAILY 03/19/21 07/12/21 History Mcg = 1000 Iu)] Meloxicam [Mobic] 15 mg PO DAILY PRN 03/19/21 07/12/21 History carBAMazepine 100 mg PO TID PRN 03/19/21 07/12/21 History traZODone HCL [Desyrel] 50 mg PO HS PRN 03/19/21 07/12/21 History Azithromycin 250 mg PO MOWEFR 07/12/21 07/12/21 History Calcium Carbonate/Vitamin D3 1 cap PO DAILY 07/12/21 07/12/21 History [Calcium 600 mg-D3 10 Mcg (400 Iu)] methylPREDNISolone [Medrol Dose See Taper PO DAILY 07/12/21 07/12/21 History Pack] predniSONE 5 mg PO Q48H 07/12/21 07/12/21 History Allergies Allergy/AdvReac Type Severity Reaction Status Date / Time budesonide [From Symbicort] AdvReac ANXIETY Verified 07/12/21 08:19 formoterol [From Symbicort] AdvReac ANXIETY Verified 07/12/21 08:19 Physical Exam Vitals: Vital Signs Temp Pulse Resp BP Pulse Ox 07/12/21 09:24 125 H 07/12/21 09:16 135 H 07/12/21 07:50 129 H 07/12/21 07:34 98 F 115 H 24 148/90 100 07/12/21 07:30 120 H 07/12/21 06:52 26 H 07/12/21 06:51 134 H 26 H 148/90 96 07/12/21 06:41 129 H 28 H 149/119 98 Intake and Output 07/11/21 07/12/21 07/12/21 22:59 06:59 14:59 Other: Weight 60.328 kg Results CBC & Chem 7: 07/12/21 06:48 07/12/21 06:48 Labs: Abnormal Lab Results - Last 24 Hours (Table) 07/12/21 07/12/21 07/12/21 Range/Units 06:48 06:48 06:48 APTT 19.3 L (22.0-30.0) sec BUN 20 H (7-17) mg/dL Glucose 141 H (74-99) mg/dL Plasma Lactic Acid Jer 2.2 H* (0.7-2.0) mmol/L
[2021-07-12] MEDS: IPRATROPIUM-ALBUTEROL 3 ML NEB INHALATION SCH ×3 (15:16→23:19)
[2021-07-12] MEDS: guaiFENesin 600 MG TABLET.ER PO SCH ×3 (15:38→21:55)
[2021-07-12] MEDS: ENOXAPARIN 40 MG/0.4 ML SYRINGE SQ SCH (15:38)
[2021-07-12 16:48] LABS: Glucose,Whole Blood 173 mg/dL (75-99)
[2021-07-12] MEDS: ATORVASTATIN 10 MG TAB PO SCH (17:03)
[2021-07-12] MEDS: INSULIN ASPART (NovoLOG) 100 UNIT/ML VIAL SQ SCH ×2 (17:03→21:55)
[2021-07-12] MEDS: FORMOTEROL FUMARATE 20 MCG/2 ML NEBU INHALATION SCH (18:59)
[2021-07-12] MEDS: BUDESONIDE 1 MG/2 ML NEBU INHALATION SCH (18:59)
[2021-07-12] MEDS ORDERED: SYMBICORT 160-4.5 MCG INHALER INHALATION SCH (20:00)
[2021-07-12 21:56] LABS: Glucose,Whole Blood 133 mg/dL (75-99)
[2021-07-12] MEDS: LATANOPROST 0.005% OPHTH DROPS 2.5 ML BTL BOTH EYES SCH (22:42)
[2021-07-13] MEDS: IPRATROPIUM-ALBUTEROL 3 ML NEB INHALATION SCH ×5 (03:09→19:37)
[2021-07-13] MEDS: methylPREDNISolone SOD SUCCI 125 MG/2 ML VIAL IV SCH ×4 (05:43→23:28)
[2021-07-13 06:55] LABS: Glucose,Whole Blood 153 mg/dL (75-99)
[2021-07-13] MEDS ORDERED: IPRATROPIUM 0.5 MG/2.5 ML NEBU INHALATION SCH (08:00)
[2021-07-13] MEDS: FORMOTEROL FUMARATE 20 MCG/2 ML NEBU INHALATION SCH (08:10)
[2021-07-13] MEDS: BUDESONIDE 1 MG/2 ML NEBU INHALATION SCH (08:10)
[2021-07-13] MEDS: guaiFENesin 600 MG TABLET.ER PO SCH ×4 (08:45→20:55)
[2021-07-13] MEDS: FLUCONAZOLE 100 MG TAB PO SCH (08:45)
[2021-07-13] MEDS: INSULIN ASPART (NovoLOG) 100 UNIT/ML VIAL SQ SCH ×4 (08:45→20:54)
[2021-07-13] MEDS: CHOLECALCIFEROL 25 MCG (1000 IU) TABLET PO SCH (08:45)
[2021-07-13] MEDS: CALCIUM CARB-VIT D 500 MG-5 MCG TAB PO SCH (08:45)
[2021-07-13] MEDS: ENOXAPARIN 40 MG/0.4 ML SYRINGE SQ SCH (08:45)
[2021-07-13] MEDS: SULFAMETHOX-TMP 800-160MG 1 EACH TAB PO SCH ×2 (09:07→20:55)
[2021-07-13 11:46] LABS: Glucose,Whole Blood 142 mg/dL (75-99)
--- NOTE | 2021-07-13 12:26 | P.PN ---
Subjective Progress Note Date: 07/13/21 Principal diagnosis: Acute exacerbation of COPD This is a 70-year-old female, familiar to my service, known to have history of severe COPD, FEV1 is 35% of the predicted value. Patient is maintained on Zithromax every other day, prednisone 5 mg daily, she is a former smoker, known history of glaucoma, her last admission to the hospital was back in February of 2021, at that time the patient came in with acute exacerbation of COPD, and she underwent bronchoscopy and BAL. Patient was found to have stenotrophomonas infection, treated with proper antibiotics, I believe the patient received Bactrim, and she responded well to treatment. Patient is here today with 2 days history of cough wheezing shortness of breath, cough, however she is unable to bring up any phlegm, intermittent wheezing, and not feeling well. No fever no chills no hemoptysis no chest pain. Chest x-ray showed no evidence of active disease, patient was admitted, and this consult was initiated. Reevaluated today on 07/13/21, patient remains symptomatic, continues to have intermittent episodes of cough and wheezing. However the patient is only on 2 L nasal cannula, and O2 saturations 98%. She is on antibiotics, bronchodilators, and steroids, in the past the patient required bronchoscopy and BAL to improve her pulmonary symptoms, and I wouldn't be surprised if that has to be done again. Objective - Vital Signs Vital signs: Vital Signs Temp 97.9 F 07/13/21 07:33 Pulse 111 H 07/13/21 12:11 Resp 20 07/13/21 12:11 BP 147/80 07/13/21 01:30 Pulse Ox 98 07/13/21 08:11 Intake & Output 07/12/21 07/13/21 07/13/21 18:59 06:59 18:59 Intake Total 1000 Balance 1000 Weight 60.328 kg Intake: Oral 1000 Other: Voiding Method Toilet # Voids 2 2 # Bowel Movements 0 - Exam Physical Exam: Revealed a 70-year-old female in no distress, on 2 liters nasal cannula. Head: Atraumatic normocephalic. HEENT:[Neck is supple.] [No neck masses.] [No thyromegaly.] [No JVD.] Chest: [Symmetrical chest expansion, diffuse rhonchi and wheezes noted bilaterally. Cardiac Exam: [Normal S1 and S2, no S3 gallop, no murmur.] Abdomen: [Soft, nontender, no megaly, no rebound, no guarding, normal bowel sounds.] Extremities: [No clubbing, no edema, no cyanosis.] Neurological Exam: [No focal neurologic deficit.] Oriented 3. Psychiatric: Normal mood affect and normal mental status examination. Skin: No rashes. - Labs CBC & Chem 7: 07/12/21 06:48 07/12/21 06:48 Labs: Abnormal Lab Results - Last 24 Hours (Table) 07/12/21 07/12/21 07/12/21 Range/Units 13:00 16:46 21:54 POC Glucose (mg/dL) 173 H 133 H (75-99) mg/dL Plasma Lactic Acid Jer 4.5 H* (0.7-2.0) mmol/L 07/13/21 07/13/21 Range/Units 06:54 11:45 POC Glucose (mg/dL) 153 H 142 H (75-99) mg/dL Plasma Lactic Acid Jer (0.7-2.0) mmol/L Microbiology - Last 24 Hours (Table) 07/12/21 09:18 Blood Culture - Preliminary Blood No Growth after 24 hours 07/12/21 09:05 Blood Culture - Preliminary Blood No Growth after 24 hours Assessment and Plan Assessment: Impression: Acute exacerbation of COPD Acute purulent tracheobronchitis, previous history of stenotrophomonas infection History of severe COPD FEV1 of 35%. Former smoker. History of glaucoma. Recommendation: Continue oxygen, bronchodilators, IV Solu-Medrol, antibiotics in the form of Bactrim, Check sputum cultures, We'll continue to follow. Patient may require bronchoscopy and BAL to improve and speed up her recovered. Time with Patient: Less than 30
[2021-07-13 16:51] LABS: Glucose,Whole Blood 142 mg/dL (75-99)
[2021-07-13] MEDS: ATORVASTATIN 10 MG TAB PO SCH (17:17)
--- NOTE | 2021-07-13 17:26 | P.PN ---
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 Chronic stable medical conditions include hyperlipidemia,. long- standing COPD. patient was admitted in December 2020. Was not responding to regular treatment for COPD was underwent bronchoscopy lot of secretions was removed. Finally was discharged. On dislocation patient remains to be somewhat short of breath. But yesterday became increasingly short of breath. Started wheezing quite a bit. Cough not able to produce much slightly congested in the chest. No fever no chills. Appetite has been fine. No edema. No chest pain or palpitation. Admitted with severe COPD exacerbation and oropharyngeal candidiasis. Started on nebulized bronchodilators steroids Diflucan. July 13: Remains short of breath. Congested cough. Anxious. Patient r eassured. Continue IV steroids bronchodilators. Mucinex. Active Medications Acetaminophen (Acetaminophen Tab 325 Mg Tab) 650 mg PO Q6HR PRN PRN Reason: Mild Pain or Fever > 100.5 Last Admin: 07/12/21 22:47 Dose: 650 mg Documented by: Albuterol/Ipratropium (Ipratropium-Albuterol 3 Ml Neb) 3 ml INHALATION RT-Q4H PRN PRN Reason: Shortness Of Breath Or Wheezing Last Admin: 07/12/21 12:13 Dose: 3 ml Documented by: Albuterol/Ipratropium (Ipratropium-Albuterol 3 Ml Neb) 3 ml INHALATION RT-Q4H [facility] Last Admin: 07/13/21 15:55 Dose: 3 ml Documented by: Alprazolam (Alprazolam 0.25 Mg Tab) 0.25 mg PO Q6HR PRN PRN Reason: Anxiety Atorvastatin Calcium (Atorvastatin 10 Mg Tab) 10 mg PO W/SUPPER [facility] Last Admin: 07/13/21 17:17 Dose: 10 mg Documented by: Calcium Carbonate (Calcium Carb-Vit D 500 Mg-5 Mcg Tab) 1 each PO DAILY [facility] Last Admin: 07/13/21 08:45 Dose: 1 each Documented by: Calcium Carbonate/Glycine (Calcium Carbonate 500 Mg Chewable) 1,000 mg PO Q4HR PRN PRN Reason: Dyspepsia Carbamazepine (Carbamazepine Chew 100 Mg Chew) 100 mg PO TID PRN PRN Reason: SEZIURE Cholecalciferol (Cholecalciferol 25 Mcg (1000 Iu) Tablet) 25 mcg PO DAILY [facility] Last Admin: 07/13/21 08:45 Dose: 25 mcg Documented by: Enoxaparin Sodium (Enoxaparin 40 Mg/0.4 Ml Syringe) 40 mg SQ DAILY [facility] Last Admin: 07/13/21 08:45 Dose: 40 mg Documented by: Fluconazole (Fluconazole 100 Mg Tab) 100 mg PO DAILY [facility] Last Admin: 07/13/21 08:45 Dose: 100 mg Documented by: Guaifenesin (Guaifenesin 600 Mg Tablet.Er) 600 mg PO QID [facility] Last Admin: 07/13/21 17:17 Dose: 600 mg Documented by: Insulin Aspart (Insulin Aspart (Novolog) 100 Unit/Ml Vial) 0 unit SQ ACHS [facility]; Protocol Last Admin: 07/13/21 17:17 Dose: 2 unit Documented by: Lactulose (Lactulose 20 Gm/30 Ml Cup) 20 gm PO DAILY PRN PRN Reason: Constipation Latanoprost (Latanoprost 0.005% Ophth Drops 2.5 Ml Btl) 1 drops BOTH EYES HS [facility] Last Admin: 07/12/21 22:42 Dose: 1 drops Documented by: Melatonin (Melatonin 3 Mg Tablet) 3 mg PO HS PRN PRN Reason: Insomnia Meloxicam (Meloxicam 7.5 Mg Tab) 15 mg PO DAILY PRN PRN Reason: Pain Methylprednisolone Sodium Succinate (Methylprednisolone Sod Succi 125 Mg/2 Ml Vial) 60 mg IV Q6HR [facility] Last Admin: 07/13/21 17:19 Dose: 60 mg Documented by: Naloxone HCl (Naloxone 0.4 Mg/Ml 1 Ml Vial) 0.2 mg IV Q2M PRN PRN Reason: Opioid Reversal Ondansetron HCl (Ondansetron 4 Mg/2 Ml Vial) 4 mg IVP Q8HR PRN PRN Reason: Nausea And Vomiting Trazodone HCl (Trazodone Hcl 50 Mg Tab) 50 mg PO HS PRN PRN Reason: Insomnia Trimethoprim/Sulfamethoxazole (Sulfamethox-Tmp 800-160mg 1 Each Tab) 1 each PO BID [facility] Last Admin: 07/13/21 09:07 Dose: 1 each Documented by: Past medical history to include: COPD, hyperlipidemia Social history: Lives alone. Stop smoking around 1999. Smoked for about 31 years. No alcohol Family history: Father in his 50s from COPD was a smoker Physical examination: VITAL SIGNS: 99, 120, 18, 143.75, 96% 2 L GENERAL: , sitting up in bed, awake, short of breath. Anxious EYES: Pupils equal. Conjunctiva normal. HEENT: External appearance of nose and ears normal, oral cavity white spots in the r pharynx. NECK: JVD not raised; masses not palpable. HEART: First and second heart sounds are normal; no edema. LUNGS:[ Respiratory rate increased, diminished breath sounds prolonged expiration and wheezing. ABDOMEN: Soft, nontender, liver spleen not palpable, no masses palpable. PSYCH: [Alert and oriented x3; mood and affect slightly anxious. MUSCULOSKELETAL:No Clubbing/cyanosis;muscles-grossly intact. Evidence of OA INVESTIGATIONS, reviewed in the clinical context: White count 7.7 hemoglobin 13.2 platelets 347 potassium 4 creatinine 0.79 glucose 141 Lactic acid 2.2 Troponin I less than 0.012 proBNP 124 Coronavirus [PCR]: Not detected EKG tracing personally reviewed by me-P pulmonale, sinus tachycardia rate 126 Chest x-ray film personally reviewed by me-hyperinflated. No obvious infiltrate Assessment and plan: -Acute severe COPD exacerbation in a ex-smoker: Slow to respond Nebulized bronchodilators every 4 , IV steroids, inhaled steroids. Long-acting beta agonist. -Pharyngeal candidiasis, from steroids Oral Diflucan -Hyperlipidemia Lipitor 10 mg with supper -Lactic acidosis type II. No sepsis -Hyperglycemia secondary to steroids. No diabetes Nebulized bronchodilators, IV steroids, inhaled steroids, long-acting beta agonists. Subcu Lovenox. Diflucan. . Care was discussed with the patient. Humidify oxygen. Reassured
[2021-07-13 20:27] LABS: Glucose,Whole Blood 144 mg/dL (75-99)
[2021-07-13] MEDS: LATANOPROST 0.005% OPHTH DROPS 2.5 ML BTL BOTH EYES SCH (20:55)
[2021-07-14] MEDS: IPRATROPIUM-ALBUTEROL 3 ML NEB INHALATION SCH ×6 (02:03→19:13)
[2021-07-14] MEDS: methylPREDNISolone SOD SUCCI 125 MG/2 ML VIAL IV SCH ×4 (05:32→23:00)
[2021-07-14 06:24] LABS: Glucose,Whole Blood 135 mg/dL (75-99)
[2021-07-14] MEDS: INSULIN ASPART (NovoLOG) 100 UNIT/ML VIAL SQ SCH ×4 (08:20→21:27)
[2021-07-14] MEDS: SULFAMETHOX-TMP 800-160MG 1 EACH TAB PO SCH ×2 (08:55→20:23)
[2021-07-14] MEDS: ENOXAPARIN 40 MG/0.4 ML SYRINGE SQ SCH (08:55)
[2021-07-14] MEDS: CALCIUM CARB-VIT D 500 MG-5 MCG TAB PO SCH (08:55)
[2021-07-14] MEDS: FLUCONAZOLE 100 MG TAB PO SCH (08:55)
[2021-07-14] MEDS: CHOLECALCIFEROL 25 MCG (1000 IU) TABLET PO SCH (08:55)
[2021-07-14] MEDS: guaiFENesin 600 MG TABLET.ER PO SCH ×4 (08:55→20:23)
[2021-07-14 11:01] LABS: Glucose,Whole Blood 201 mg/dL (75-99)
--- NOTE | 2021-07-14 14:41 | P.PN ---
Subjective Progress Note Date: 07/14/21 Principal diagnosis: Acute exacerbation of COPD This is a 70-year-old female, familiar to my service, known to have history of severe COPD, FEV1 is 35% of the predicted value. Patient is maintained on Zithromax every other day, prednisone 5 mg daily, she is a former smoker, known history of glaucoma, her last admission to the hospital was back in February of 2021, at that time the patient came in with acute exacerbation of COPD, and she underwent bronchoscopy and BAL. Patient was found to have stenotrophomonas infection, treated with proper antibiotics, I believe the patient received Bactrim, and she responded well to treatment. Patient is here today with 2 days history of cough wheezing shortness of breath, cough, however she is unable to bring up any phlegm, intermittent wheezing, and not feeling well. No fever no chills no hemoptysis no chest pain. Chest x-ray showed no evidence of active disease, patient was admitted, and this consult was initiated. Reevaluated today on 07/13/21, patient remains symptomatic, continues to have intermittent episodes of cough and wheezing. However the patient is only on 2 L nasal cannula, and O2 saturations 98%. She is on antibiotics, bronchodilators, and steroids, in the past the patient required bronchoscopy and BAL to improve her pulmonary symptoms, and I wouldn't be surprised if that has to be done again. On 07/14/2021 patient seen in follow-up on medical surgical floor. Patient states she is improving, still has a congested cough, but feels comfortable, she is on 3 L of oxygen pulse ox is 99%, she is afebrile, hemodynamically she is stable, no complaints of chest discomfort. No fever chills, patient remains on IV Solu-Medrol 61 g every 6 hours, DuoNeb, and Bactrim DS. Objective - Vital Signs Vital signs: Vital Signs Temp 98.3 F 07/14/21 08:55 Pulse 108 H 07/14/21 11:26 Resp 19 07/14/21 08:55 BP 145/81 07/14/21 08:55 Pulse Ox 99 07/14/21 08:55 Intake & Output 07/13/21 07/14/21 07/14/21 18:59 06:59 18:59 Intake Total 1080 Balance 1080 Intake: Oral 1080 Other: Voiding Method Toilet Toilet Toilet # Voids 3 3 # Bowel Movements 0 - Exam GENERAL EXAM: Alert, very pleasant, 71-year-old white female, on 3 L of oxygen with a pulse ox of 99% comfortable in no apparent distress. HEAD: Normocephalic/atraumatic. EYES: Normal reaction of pupils, equal size. Conjunctiva pink, sclera white. NOSE: Clear with pink turbinates. THROAT: No erythema or exudates. NECK: No masses, no JVD, no thyroid enlargement, no adenopathy. CHEST: No chest wall deformity. Symmetrical expansion. LUNGS: Equal air entry with with scattered rhonchi and mild wheezes CVS: Regular rate and rhythm, normal S1 and S2, no gallops, no murmurs, no rubs ABDOMEN: Soft, nontender. No hepatosplenomegaly, normal bowel sounds, no guarding or rigidity. EXTREMITIES: No clubbing, no edema, no cyanosis, 2+ pulses and upper and lower extremities. MUSCULOSKELETAL: Muscle strength and tone normal. SPINE: No scoliosis or deformity SKIN: No rashes CENTRAL NERVOUS SYSTEM: Alert and oriented -3. No focal deficits, tone is normal in all 4 extremities. PSYCHIATRIC: Alert and oriented -3. Appropriate affect. Intact judgment and insight. - Labs CBC & Chem 7: 07/12/21 06:48 07/12/21 06:48 Labs: Abnormal Lab Results - Last 24 Hours (Table) 07/13/21 07/13/21 07/14/21 Range/Units 16:49 20:23 06:19 POC Glucose (mg/dL) 142 H 144 H 135 H (75-99) mg/dL 07/14/21 Range/Units 10:59 POC Glucose (mg/dL) 201 H (75-99) mg/dL Microbiology - Last 24 Hours (Table) 07/12/21 09:05 Blood Culture - Preliminary Blood No Growth after 48 hours 07/12/21 09:18 Blood Culture - Preliminary Blood No Growth after 48 hours Assessment and Plan Plan: Assessment: #1. Acute exacerbation of COPD #2. Accupril tracheobronchitis with previous history of stenotrophomonas infection, patient has been started on Bactrim DS #3. History of severe COPD with FEV1 of 35% predicted #4. Former smoker #5. History of glaucoma Plan: Continue current medical treatment Continue IV Solu-Medrol, Continue DuoNeb Continue Bactrim DS Send a sputum culture We'll continue to follow her clinical course I performed a history & physical examination of the patient and discussed their management with my nurse practitioner, Tracey Vicente. I reviewed the nurse practitioner's note and agree with the documented findings and plan of care. Lung sounds are positive for diffuse rhonchi throughout the lung sterling. The findings and the impression was discussed with the patient. I attest to the documentation by the nurse practitioner. Time with Patient: Less than 30
[2021-07-14 16:08] LABS: Glucose,Whole Blood 80 mg/dL (75-99)
[2021-07-14] MEDS: ATORVASTATIN 10 MG TAB PO SCH (16:19)
[2021-07-14] MEDS ORDERED: FORMOTEROL FUMARATE 20 MCG/2 ML NEBU INHALATION SCH (20:00)
[2021-07-14] MEDS ORDERED: BUDESONIDE 1 MG/2 ML NEBU INHALATION SCH (20:00)
[2021-07-14 20:15] LABS: Glucose,Whole Blood 124 mg/dL (75-99)
[2021-07-14] MEDS: LATANOPROST 0.005% OPHTH DROPS 2.5 ML BTL BOTH EYES SCH (20:23)
--- NOTE | 2021-07-14 21:07 | P.PN ---
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 Chronic stable medical conditions include hyperlipidemia,. long- standing COPD. patient was admitted in December 2020. Was not responding to regular treatment for COPD was underwent bronchoscopy lot of secretions was removed. Finally was discharged. On dislocation patient remains to be somewhat short of breath. But yesterday became increasingly short of breath. Started wheezing quite a bit. Cough not able to produce much slightly congested in the chest. No fever no chills. Appetite has been fine. No edema. No chest pain or palpitation. Admitted with severe COPD exacerbation and oropharyngeal candidiasis. Started on nebulized bronchodilators steroids Diflucan. July 13: Remains short of breath. Congested cough. Anxious. Patient r eassured. Continue IV steroids bronchodilators. Mucinex. July 14: Sitting up. Short of breath. Anxious. Congested cough. No expectorations. On IV steroids bronchodilators Mucinex. Diflucan. Active Medications Acetaminophen (Acetaminophen Tab 325 Mg Tab) 650 mg PO Q6HR PRN PRN Reason: Mild Pain or Fever > 100.5 Last Admin: 07/12/21 22:47 Dose: 650 mg Documented by: Albuterol/Ipratropium (Ipratropium-Albuterol 3 Ml Neb) 3 ml INHALATION RT-Q4H PRN PRN Reason: Shortness Of Breath Or Wheezing Last Admin: 07/12/21 12:13 Dose: 3 ml Documented by: Albuterol/Ipratropium (Ipratropium-Albuterol 3 Ml Neb) 3 ml INHALATION RT-Q4H [facility] Last Admin: 07/14/21 19:13 Dose: 3 ml Documented by: Alprazolam (Alprazolam 0.25 Mg Tab) 0.25 mg PO Q6HR PRN PRN Reason: Anxiety Atorvastatin Calcium (Atorvastatin 10 Mg Tab) 10 mg PO W/SUPPER [facility] Last Admin: 07/14/21 16:19 Dose: 10 mg Documented by: Calcium Carbonate (Calcium Carb-Vit D 500 Mg-5 Mcg Tab) 1 each PO DAILY [facility] Last Admin: 07/14/21 08:55 Dose: 1 each Documented by: Calcium Carbonate/Glycine (Calcium Carbonate 500 Mg Chewable) 1,000 mg PO Q4HR PRN PRN Reason: Dyspepsia Carbamazepine (Carbamazepine Chew 100 Mg Chew) 100 mg PO TID PRN PRN Reason: SEZIURE Cholecalciferol (Cholecalciferol 25 Mcg (1000 Iu) Tablet) 25 mcg PO DAILY [facility] Last Admin: 07/14/21 08:55 Dose: 25 mcg Documented by: Enoxaparin Sodium (Enoxaparin 40 Mg/0.4 Ml Syringe) 40 mg SQ DAILY [facility] Last Admin: 07/14/21 08:55 Dose: 40 mg Documented by: Fluconazole (Fluconazole 150 Mg Tab) 150 mg PO DAILY [facility] Guaifenesin (Guaifenesin 600 Mg Tablet.Er) 600 mg PO QID [facility] Last Admin: 07/14/21 20:23 Dose: 600 mg Documented by: Insulin Aspart (Insulin Aspart (Novolog) 100 Unit/Ml Vial) 0 unit SQ [facility]; Protocol Last Admin: 07/14/21 16:16 Dose: Not Given Documented by: Lactulose (Lactulose 20 Gm/30 Ml Cup) 20 gm PO DAILY PRN PRN Reason: Constipation Latanoprost (Latanoprost 0.005% Ophth Drops 2.5 Ml Btl) 1 drops BOTH EYES HS [facility] Last Admin: 07/14/21 20:23 Dose: 1 drops Documented by: Melatonin (Melatonin 3 Mg Tablet) 3 mg PO HS PRN PRN Reason: Insomnia Meloxicam (Meloxicam 7.5 Mg Tab) 15 mg PO DAILY PRN PRN Reason: Pain Methylprednisolone Sodium Succinate (Methylprednisolone Sod Succi 125 Mg/2 Ml Vial) 60 mg IV Q6HR [facility] Last Admin: 07/14/21 16:19 Dose: 60 mg Documented by: Naloxone HCl (Naloxone 0.4 Mg/Ml 1 Ml Vial) 0.2 mg IV Q2M PRN PRN Reason: Opioid Reversal Ondansetron HCl (Ondansetron 4 Mg/2 Ml Vial) 4 mg IVP Q8HR PRN PRN Reason: Nausea And Vomiting Trazodone HCl (Trazodone Hcl 50 Mg Tab) 50 mg PO HS PRN PRN Reason: Insomnia Last Admin: 07/14/21 20:26 Dose: 50 mg Documented by: Trimethoprim/Sulfamethoxazole (Sulfamethox-Tmp 800-160mg 1 Each Tab) 1 each PO BID [facility] Last Admin: 07/14/21 20:23 Dose: 1 each Documented by: Past medical history to include: COPD, hyperlipidemia Social history: Lives alone. Stop smoking around 1999. Smoked for about 31 years. No alcohol Family history: Father in his 50s from COPD was a smoker Physical examination: VITAL SIGNS: 98.4, 1:15, 18, 1 45 x 77, 97% on 2 L GENERAL: , sitting up in bed, awake, short of breath. Congested cough, EYES: Pupils equal. Conjunctiva normal. HEENT: External appearance of nose and ears normal, oral cavity white spots in the r pharynx. NECK: JVD not raised; masses not palpable. HEART: First and second heart sounds are normal; no edema. LUNGS:[ Respiratory rate increased, diminished breath sounds prolonged expiration and wheezing. Some scattered expiratory crackles ABDOMEN: Soft, nontender, liver spleen not palpable, no masses palpable. PSYCH: Alert and oriented x3; mood and affect slightly anxious. MUSCULOSKELETAL:No Clubbing/cyanosis;muscles-grossly intact. Evidence of OA INVESTIGATIONS, reviewed in the clinical context: White count 7.7 hemoglobin 13.2 platelets 347 potassium 4 creatinine 0.79 glucose 141 Lactic acid 2.2 Troponin I less than 0.012 proBNP 124 Coronavirus [PCR]: Not detected EKG tracing personally reviewed by me-P pulmonale, sinus tachycardia rate 126 Chest x-ray film personally reviewed by me-hyperinflated. No obvious infiltrate Assessment and plan: -Acute severe COPD exacerbation in a ex-smoker: Slow to respond Nebulized bronchodilators every 4 , IV steroids, inhaled steroids. Long-acting beta agonist. -Pharyngeal candidiasis, from steroids Oral Diflucan -Hyperlipidemia Lipitor 10 mg with supper -Lactic acidosis type II. No sepsis -Hyperglycemia secondary to steroids. No diabetes Continue Nebulized bronchodilators, IV steroids, inhaled steroids, long-acting beta agonists. Subcu Lovenox. Diflucan. . discussed with the patient. Humidify oxygen. Add flutter valve.
[2021-07-15] MEDS: IPRATROPIUM-ALBUTEROL 3 ML NEB INHALATION SCH ×7 (00:10→23:25)
[2021-07-15] MEDS: methylPREDNISolone SOD SUCCI 125 MG/2 ML VIAL IV SCH ×3 (05:11→17:12)
[2021-07-15 07:05] LABS: Glucose,Whole Blood 132 mg/dL (75-99)
[2021-07-15] MEDS: CALCIUM CARB-VIT D 500 MG-5 MCG TAB PO SCH (08:00)
[2021-07-15] MEDS: guaiFENesin 600 MG TABLET.ER PO SCH ×4 (08:00→20:26)
[2021-07-15] MEDS: FLUCONAZOLE 150 MG TAB PO SCH (08:00)
[2021-07-15] MEDS: SULFAMETHOX-TMP 800-160MG 1 EACH TAB PO SCH ×2 (08:00→20:26)
[2021-07-15] MEDS: CHOLECALCIFEROL 25 MCG (1000 IU) TABLET PO SCH (08:00)
[2021-07-15] MEDS: ENOXAPARIN 40 MG/0.4 ML SYRINGE SQ SCH (08:01)
[2021-07-15] MEDS: INSULIN ASPART (NovoLOG) 100 UNIT/ML VIAL SQ SCH ×4 (08:01→20:26)
[2021-07-15 11:19] LABS: Glucose,Whole Blood 121 mg/dL (75-99)
--- NOTE | 2021-07-15 12:24 | P.PN ---
Subjective Progress Note Date: 07/15/21 Principal diagnosis: Acute exacerbation of COPD This is a 70-year-old female, familiar to my service, known to have history of severe COPD, FEV1 is 35% of the predicted value. Patient is maintained on Zithromax every other day, prednisone 5 mg daily, she is a former smoker, known history of glaucoma, her last admission to the hospital was back in February of 2021, at that time the patient came in with acute exacerbation of COPD, and she underwent bronchoscopy and BAL. Patient was found to have stenotrophomonas infection, treated with proper antibiotics, I believe the patient received Bactrim, and she responded well to treatment. Patient is here today with 2 days history of cough wheezing shortness of breath, cough, however she is unable to bring up any phlegm, intermittent wheezing, and not feeling well. No fever no chills no hemoptysis no chest pain. Chest x-ray showed no evidence of active disease, patient was admitted, and this consult was initiated. Reevaluated today on 07/13/21, patient remains symptomatic, continues to have intermittent episodes of cough and wheezing. However the patient is only on 2 L nasal cannula, and O2 saturations 98%. She is on antibiotics, bronchodilators, and steroids, in the past the patient required bronchoscopy and BAL to improve her pulmonary symptoms, and I wouldn't be surprised if that has to be done again. On 07/14/2021 patient seen in follow-up on medical surgical floor. Patient states she is improving, still has a congested cough, but feels comfortable, she is on 3 L of oxygen pulse ox is 99%, she is afebrile, hemodynamically she is stable, no complaints of chest discomfort. No fever chills, patient remains on IV Solu-Medrol 61 g every 6 hours, DuoNeb, and Bactrim DS. On 07/15/2021 patient is seen in follow-up on medical surgical floor. Patient states has been slow to improve, still quite congested, she is using the flutter valve, she is maximized on medical treatment, she is on Solu-Medrol 61 g every 6 hours, she is on breathing treatments, she is on Bactrim DS for empiric antibiotic coverage. Discussed possibility of bronchoscopy with BAL with the patient, she has had Bronchs in the past, she states in the past they have helped her recover faster. She is agreeable to proceed with the bronch with BAL possibly tomorrow or the next day. Objective - Vital Signs Vital signs: Vital Signs Temp 98.3 F 07/15/21 07:25 Pulse 111 H 07/15/21 10:29 Resp 17 07/15/21 10:29 BP 168/72 07/15/21 07:25 Pulse Ox 95 07/15/21 08:31 Intake & Output 07/14/21 07/15/21 07/15/21 18:59 06:59 18:59 Intake Total 960 Balance 960 Intake: Oral 960 Other: Voiding Method Toilet # Voids 2 # Bowel Movements 1 - Exam GENERAL EXAM: Alert, very pleasant, 71-year-old white female, on 3 L of oxygen with a pulse ox of 95% comfortable in no apparent distress. HEAD: Normocephalic/atraumatic. EYES: Normal reaction of pupils, equal size. Conjunctiva pink, sclera white. NOSE: Clear with pink turbinates. THROAT: No erythema or exudates. NECK: No masses, no JVD, no thyroid enlargement, no adenopathy. CHEST: No chest wall deformity. Symmetrical expansion. LUNGS: Equal air entry with with scattered rhonchi and mild wheezes CVS: Regular rate and rhythm, normal S1 and S2, no gallops, no murmurs, no rubs ABDOMEN: Soft, nontender. No hepatosplenomegaly, normal bowel sounds, no guarding or rigidity. EXTREMITIES: No clubbing, no edema, no cyanosis, 2+ pulses and upper and lower extremities. MUSCULOSKELETAL: Muscle strength and tone normal. SPINE: No scoliosis or deformity SKIN: No rashes CENTRAL NERVOUS SYSTEM: Alert and oriented -3. No focal deficits, tone is normal in all 4 extremities. PSYCHIATRIC: Alert and oriented -3. Appropriate affect. Intact judgment and insight. - Labs CBC & Chem 7: 07/12/21 06:48 07/12/21 06:48 Labs: Abnormal Lab Results - Last 24 Hours (Table) 07/14/21 07/15/21 07/15/21 Range/Units 20:13 06:56 11:17 POC Glucose (mg/dL) 124 H 132 H 121 H (75-99) mg/dL Microbiology - Last 24 Hours (Table) 07/12/21 09:05 Blood Culture - Preliminary Blood No Growth after 72 hours 07/12/21 09:18 Blood Culture - Preliminary Blood No Growth after 72 hours Assessment and Plan Plan: Assessment: #1. Acute exacerbation of COPD #2. Accupril tracheobronchitis with previous history of stenotrophomonas infection, patient has been started on Bactrim DS #3. History of severe COPD with FEV1 of 35% predicted #4. Former smoker #5. History of glaucoma Plan: Patient continues to be congested, bronchospastic, slow to improve She has been maximized on medical treatment Continue with same dose IV Solu-Medrol, nebulized treatments, and empiric antibiotics Sputum culture has been sent Discussed possibility of bronchoscopy with BAL with the patient She is agreeable to proceed We will schedule for , 07/17/2021 Nothing to eat after midnight on 07/16/2021 I performed a history & physical examination of the patient and discussed their management with my nurse practitioner, Tracey Vicente. I reviewed the nurse practitioner's note and agree with the documented findings and plan of care. Lung sounds are positive for diffuse rhonchi throughout the lung sterling. The findings and the impression was discussed with the patient. I attest to the documentation by the nurse practitioner. Time with Patient: Less than 30
[2021-07-15 16:40] LABS: Glucose,Whole Blood 138 mg/dL (75-99)
[2021-07-15] MEDS: ATORVASTATIN 10 MG TAB PO SCH (17:12)
[2021-07-15 19:57] LABS: Glucose,Whole Blood 148 mg/dL (75-99)
[2021-07-15] MEDS: LATANOPROST 0.005% OPHTH DROPS 2.5 ML BTL BOTH EYES SCH (20:26)
[2021-07-15] MEDS ORDERED: ZOLPIDEM 5 MG TAB PO SCH (21:00)
--- NOTE | 2021-07-15 21:04 | P.PN ---
Progress Note - Text Progress Note Date: 07/15/21 Chief Complaint: Short of breath This is a 70-year-old patient, follows with Dr. Mohan. P[employer] Dr. Parker. Chronic stable medical conditions include hyperlipidemia,. long- standing COPD. patient was admitted in December 2020. Was not responding to regular treatment for COPD was underwent bronchoscopy lot of secretions was removed. Finally was discharged. On dislocation patient remains to be somewhat short of breath. But yesterday became increasingly short of breath. Started wheezing quite a bit. Cough not able to produce much slightly congested in the chest. No fever no chills. Appetite has been fine. No edema. No chest pain or palpitation. Admitted with severe COPD exacerbation and oropharyngeal candidiasis. Started on nebulized bronchodilators steroids Diflucan. July 13: Remains short of breath. Congested cough. Anxious. Patient r eassured. Continue IV steroids bronchodilators. Mucinex. July 14: Sitting up. Short of breath. Anxious. Congested cough. No expectorations. On IV steroids bronchodilators Mucinex. Diflucan. July 15: Oxygen humidified. Anxious. Congested cough. Bringing up some phlegm. Continue steroids bronchodilators Mucinex Diflucan. Bronchoscopy and couple of days Active Medications Acetaminophen (Acetaminophen Tab 325 Mg Tab) 650 mg PO Q6HR PRN PRN Reason: Mild Pain or Fever > 100.5 Last Admin: 07/12/21 22:47 Dose: 650 mg Documented by: Albuterol/Ipratropium (Ipratropium-Albuterol 3 Ml Neb) 3 ml INHALATION RT-Q4H PRN PRN Reason: Shortness Of Breath Or Wheezing Last Admin: 07/12/21 12:13 Dose: 3 ml Documented by: Albuterol/Ipratropium (Ipratropium-Albuterol 3 Ml Neb) 3 ml INHALATION RT-Q4H [facility] Last Admin: 07/15/21 19:54 Dose: 3 ml Documented by: Alprazolam (Alprazolam 0.25 Mg Tab) 0.25 mg PO Q6HR PRN PRN Reason: Anxiety Atorvastatin Calcium (Atorvastatin 10 Mg Tab) 10 mg PO W/SUPPER [facility] Last Admin: 07/15/21 17:12 Dose: 10 mg Documented by: Calcium Carbonate (Calcium Carb-Vit D 500 Mg-5 Mcg Tab) 1 each PO DAILY [facility] Last Admin: 07/15/21 08:00 Dose: 1 each Documented by: Calcium Carbonate/Glycine (Calcium Carbonate 500 Mg Chewable) 1,000 mg PO Q4HR PRN PRN Reason: Dyspepsia Carbamazepine (Carbamazepine Chew 100 Mg Chew) 100 mg PO TID PRN PRN Reason: SEZIURE Cholecalciferol (Cholecalciferol 25 Mcg (1000 Iu) Tablet) 25 mcg PO DAILY [facility] Last Admin: 07/15/21 08:00 Dose: 25 mcg Documented by: Enoxaparin Sodium (Enoxaparin 40 Mg/0.4 Ml Syringe) 40 mg SQ DAILY [facility] Last Admin: 07/15/21 08:01 Dose: 40 mg Documented by: Fluconazole (Fluconazole 150 Mg Tab) 150 mg PO DAILY [facility] Last Admin: 07/15/21 08:00 Dose: 150 mg Documented by: Guaifenesin (Guaifenesin 600 Mg Tablet.Er) 600 mg PO QID [facility] Last Admin: 07/15/21 20:26 Dose: 600 mg Documented by: Insulin Aspart (Insulin Aspart (Novolog) 100 Unit/Ml Vial) 0 unit SQ ACHS [facility]; Protocol Last Admin: 07/15/21 20:26 Dose: Not Given Documented by: Lactulose (Lactulose 20 Gm/30 Ml Cup) 20 gm PO DAILY PRN PRN Reason: Constipation Latanoprost (Latanoprost 0.005% Ophth Drops 2.5 Ml Btl) 1 drops BOTH EYES HS [facility] Last Admin: 07/15/21 20:26 Dose: 1 drops Documented by: Melatonin (Melatonin 3 Mg Tablet) 3 mg PO HS PRN PRN Reason: Insomnia Meloxicam (Meloxicam 7.5 Mg Tab) 15 mg PO DAILY PRN PRN Reason: Pain Methylprednisolone Sodium Succinate (Methylprednisolone Sod Succi 125 Mg/2 Ml Vial) 60 mg IV Q6HR [facility] Last Admin: 07/15/21 17:12 Dose: 60 mg Documented by: Naloxone HCl (Naloxone 0.4 Mg/Ml 1 Ml Vial) 0.2 mg IV Q2M PRN PRN Reason: Opioid Reversal Ondansetron HCl (Ondansetron 4 Mg/2 Ml Vial) 4 mg IVP Q8HR PRN PRN Reason: Nausea And Vomiting Trazodone HCl (Trazodone Hcl 50 Mg Tab) 50 mg PO HS PRN PRN Reason: Insomnia Last Admin: 07/14/21 20:26 Dose: 50 mg Documented by: Trimethoprim/Sulfamethoxazole (Sulfamethox-Tmp 800-160mg 1 Each Tab) 1 each PO BID [facility] Last Admin: 07/15/21 20:26 Dose: 1 each Documented by: Zolpidem Tartrate (Zolpidem 5 Mg Tab) 5 mg PO HS [facility] Last Admin: 07/15/21 20:25 Dose: 5 mg Documented by: Past medical history to include: COPD, hyperlipidemia Social history: Lives alone. Stop smoking around 1999. Smoked for about 31 years. No alcohol Family history: Father in his 50s from COPD was a smoker Physical examination: VITAL SIGNS: 98.5, 113, 17, 169 with 73, 96% on 3 L GENERAL: , sitting up in bed, awake, less short of breath. Congested cough, EYES: Pupils equal. Conjunctiva normal. HEENT: External appearance of nose and ears normal, oral cavity decreased white spots in the pharynx. NECK: JVD not raised; masses not palpable. HEART: First and second heart sounds are normal; no edema. LUNGS:[ Respiratory rate increased, diminished breath sounds prolonged expiration . Some scattered expiratory crackles ABDOMEN: Soft, nontender, liver spleen not palpable, no masses palpable. PSYCH: Alert and oriented x3; mood and affect slightly anxious. MUSCULOSKELETAL:No Clubbing/cyanosis;muscles-grossly intact. Evidence of OA INVESTIGATIONS, reviewed in the clinical context: White count 7.7 hemoglobin 13.2 platelets 347 potassium 4 creatinine 0.79 glucose 141 Lactic acid 2.2 Troponin I less than 0.012 proBNP 124 Coronavirus [PCR]: Not detected EKG tracing personally reviewed by me-P pulmonale, sinus tachycardia rate 126 Chest x-ray film personally reviewed by me-hyperinflated. No obvious infiltrate Assessment and plan: -Acute severe COPD exacerbation in a ex-smoker: Slow to respond Nebulized bronchodilators every 4 , IV steroids, inhaled steroids. Long-acting beta agonist. -Pharyngeal candidiasis, from steroids Oral Diflucan -Hyperlipidemia Lipitor 10 mg with supper -Lactic acidosis type II. No sepsis -Hyperglycemia secondary to steroids. No diabetes Continue Nebulized bronchodilators, IV steroids, inhaled steroids, long-acting beta agonists. Subcu Lovenox. Diflucan. . discussed with the patient. flutter valve-helping. For bronchoscopy next 1-2 days.
[2021-07-16] MEDS: methylPREDNISolone SOD SUCCI 125 MG/2 ML VIAL IV SCH ×4 (02:57→17:11)
[2021-07-16] MEDS: IPRATROPIUM-ALBUTEROL 3 ML NEB INHALATION SCH ×6 (03:48→23:35)
[2021-07-16 07:15] LABS: Glucose,Whole Blood 151 mg/dL (75-99)
[2021-07-16] MEDS: INSULIN ASPART (NovoLOG) 100 UNIT/ML VIAL SQ SCH ×4 (08:55→21:18)
[2021-07-16 11:30] LABS: Glucose,Whole Blood 129 mg/dL (75-99)
[2021-07-16] MEDS ORDERED: MIDAZOLAM 2 MG/2 ML VIAL ONE (11:52)
[2021-07-16] MEDS ORDERED: PROPOFOL 10 MG/ML 20 ML VIAL IV ONE (11:52)
[2021-07-16] MEDS ORDERED: LIDOCAINE 1% INJ 10MG/ML (20 ML MDV) ONE (11:52)
[2021-07-16] MEDS ORDERED: fentaNYL (PF) 50 MCG/ML 2 ML AMP ONE (11:52)
[2021-07-16] MEDS ORDERED: SODIUM CHLORIDE 0.9% 500 ML 500 ML IV ONE ×2 (11:55)
[2021-07-16] MEDS ORDERED: LIDOCAINE 2% INJ 20 MG/ML INTRATRACH ONE (12:06)
--- NOTE | 2021-07-16 12:24 | P.PN ---
Subjective Progress Note Date: 07/16/21 Principal diagnosis: Acute exacerbation of COPD This is a 70-year-old female, familiar to my service, known to have history of severe COPD, FEV1 is 35% of the predicted value. Patient is maintained on Zithromax every other day, prednisone 5 mg daily, she is a former smoker, known history of glaucoma, her last admission to the hospital was back in February of 2021, at that time the patient came in with acute exacerbation of COPD, and she underwent bronchoscopy and BAL. Patient was found to have stenotrophomonas infection, treated with proper antibiotics, I believe the patient received Bactrim, and she responded well to treatment. Patient is here today with 2 days history of cough wheezing shortness of breath, cough, however she is unable to bring up any phlegm, intermittent wheezing, and not feeling well. No fever no chills no hemoptysis no chest pain. Chest x-ray showed no evidence of active disease, patient was admitted, and this consult was initiated. Reevaluated today on 07/13/21, patient remains symptomatic, continues to have intermittent episodes of cough and wheezing. However the patient is only on 2 L nasal cannula, and O2 saturations 98%. She is on antibiotics, bronchodilators, and steroids, in the past the patient required bronchoscopy and BAL to improve her pulmonary symptoms, and I wouldn't be surprised if that has to be done again. On 07/14/2021 patient seen in follow-up on medical surgical floor. Patient states she is improving, still has a congested cough, but feels comfortable, she is on 3 L of oxygen pulse ox is 99%, she is afebrile, hemodynamically she is stable, no complaints of chest discomfort. No fever chills, patient remains on IV Solu-Medrol 61 g every 6 hours, DuoNeb, and Bactrim DS. On 07/15/2021 patient is seen in follow-up on medical surgical floor. Patient states has been slow to improve, still quite congested, she is using the flutter valve, she is maximized on medical treatment, she is on Solu-Medrol 61 g every 6 hours, she is on breathing treatments, she is on Bactrim DS for empiric antibiotic coverage. Discussed possibility of bronchoscopy with BAL with the patient, she has had Bronchs in the past, she states in the past they have helped her recover faster. She is agreeable to proceed with the bronch with BAL possibly tomorrow or the next day. On 07/16/2021 patient seen in follow-up on medical surgical floor, she still quite congested, she states she is not able to clear much phlegm, she has been coughing quite a bit. She remains on IV Solu-Medrol 60 mg every 6 hours, breathing treatments, she is on Diflucan and Bactrim DS for empiric antibiotic coverage, vital signs have been stable, she is on 3 L of oxygen the pulse ox of 96%. She is scheduled for bronchoscopy with BAL today. Objective - Vital Signs Vital signs: Vital Signs Temp 97.7 F 07/16/21 01:42 Pulse 108 H 07/16/21 10:07 Resp 16 07/16/21 10:07 BP 152/75 07/16/21 01:42 Pulse Ox 96 07/16/21 08:41 Intake & Output 07/15/21 07/16/21 07/16/21 18:59 06:59 18:59 Intake Total 960 200 Balance 960 200 Intake: IV 200 Oral 960 Other: Voiding Method Toilet # Voids 3 1 # Bowel Movements 1 - Exam GENERAL EXAM: Alert, very pleasant, 71-year-old white female, on 3 L of oxygen with a pulse ox of 95% comfortable in no apparent distress. HEAD: Normocephalic/atraumatic. EYES: Normal reaction of pupils, equal size. Conjunctiva pink, sclera white. NOSE: Clear with pink turbinates. THROAT: No erythema or exudates. NECK: No masses, no JVD, no thyroid enlargement, no adenopathy. CHEST: No chest wall deformity. Symmetrical expansion. LUNGS: Equal air entry with with scattered rhonchi and mild wheezes CVS: Regular rate and rhythm, normal S1 and S2, no gallops, no murmurs, no rubs ABDOMEN: Soft, nontender. No hepatosplenomegaly, normal bowel sounds, no guarding or rigidity. EXTREMITIES: No clubbing, no edema, no cyanosis, 2+ pulses and upper and lower extremities. MUSCULOSKELETAL: Muscle strength and tone normal. SPINE: No scoliosis or deformity SKIN: No rashes CENTRAL NERVOUS SYSTEM: Alert and oriented -3. No focal deficits, tone is no rmal in all 4 extremities. PSYCHIATRIC: Alert and oriented -3. Appropriate affect. Intact judgment and insight. - Labs CBC & Chem 7: 07/12/21 06:48 07/12/21 06:48 Labs: Abnormal Lab Results - Last 24 Hours (Table) 07/15/21 07/15/21 07/16/21 Range/Units 16:36 19:55 07:13 POC Glucose (mg/dL) 138 H 148 H 151 H (75-99) mg/dL 07/16/21 Range/Units 11:29 POC Glucose (mg/dL) 129 H (75-99) mg/dL Microbiology - Last 24 Hours (Table) 07/12/21 09:18 Blood Culture - Preliminary Blood No Growth after 96 hours 07/12/21 09:05 Blood Culture - Preliminary Blood No Growth after 96 hours 07/15/21 12:30 Gram Stain - Preliminary Sputum Sputum Culture - Preliminary Assessment and Plan Plan: Assessment: #1. Acute exacerbation of COPD #2. Acute tracheobronchitis with previous history of stenotrophomonas infec tion, patient has been started on Bactrim DS, status post bronchoscopy with BAL on 07/16/2021 with removal of copious purulent secretions #3. History of severe COPD with FEV1 of 35% predicted #4. Former smoker #5. History of glaucoma Plan: Patient has tolerated procedure very well, please refer to the procedure note Copious purulent secretions have been removed from both lungs, upper and lower lobes Samples were sent for cultures We'll continue with same medical treatment including with IV Solu-Medrol, nebulized treatments, and antibiotics Anticipate speeded up recovery post bronch We'll continue to follow her clinical course I performed a history & physical examination of the patient and discussed their management with my nurse practitioner, Tracey Vicente. I reviewed the nurse practitioner's note and agree with the documented findings and plan of care. Lung sounds are positive for diffuse rhonchi throughout the lung sterling. The findings and the impression was discussed with the patient. I attest to the documentation by the nurse practitioner. Time with Patient: Less than 30
[2021-07-16] MEDS: IPRATROPIUM-ALBUTEROL 3 ML NEB INHALATION PRN (13:52)
[2021-07-16] MEDS: CALCIUM CARB-VIT D 500 MG-5 MCG TAB PO SCH (13:52)
[2021-07-16] MEDS: ENOXAPARIN 40 MG/0.4 ML SYRINGE SQ SCH (13:52)
[2021-07-16] MEDS: CHOLECALCIFEROL 25 MCG (1000 IU) TABLET PO SCH (13:53)
[2021-07-16] MEDS: SULFAMETHOX-TMP 800-160MG 1 EACH TAB PO SCH ×2 (13:53→21:24)
[2021-07-16] MEDS: guaiFENesin 600 MG TABLET.ER PO SCH ×4 (13:53→21:24)
[2021-07-16] MEDS: FLUCONAZOLE 150 MG TAB PO SCH (13:53)
--- NOTE | 2021-07-16 14:06 | PCN ---
PROCEDURE NOTE PULMONARY/CRITICAL CARE PROCEDURE NOTE: PROCEDURE PERFORMED: Bronchoscopy, airway examination, therapeutic lavage, BAL right middle lobe. PREOPERATIVE DIAGNOSIS: Acute bronchitis with retained secretions. POSTOPERATIVE DIAGNOSIS: Acute bronchitis with retained secretions. OPERATORS: 1. Dr. Patel. 2. Dr. Vicente. PROCEDURE DESCRIPTION: There was informed consent and universal timeout. The patient's procedure took place in room #1 [facility]. Anesthesia provided general anesthesia. After the patient was adequately sedated and being fully monitored, the bronchoscope was inserted through the right nostril. It passed through the right nasopharynx into the oropharynx. The hypopharynx was identified and topicalized. The hypopharyngeal structures included anterior commissure, true cords, false cords, arytenoids, piriform sinuses, right and left valleculae and epiglottis. All those structures appeared normal. There were some retained secretions noted, though, in the hypopharynx. The glottic opening was topicalized. The bronchoscope was pushed through the glottic opening into the trachea. There were thick secretions noted throughout the trachea. They were suctioned with some difficulty. The tracheal wilfrid was sharp. The right and left mainstem were topicalized. Right upper lobe and its 3 segments, right middle lobe and its 2 segments, right lower lobe and its 5 segments, left upper lobe proper and its 2 segments, lingula and its 2 segments and left lower lobe and its 4 segments were all evaluated. There was hyperemia and erythema of the airways throughout. There was some mucosal friability, some vascular engorgement. There were thick secretions noted throughout the airways. They were very difficult to suction, and saline was used to facilitate that. After the secretions were removed, the bronchoscope was wedged into the right middle lobe. A formal BAL took place. Thirty mL of fluid was recovered. The fluid will be sent for analysis. Additional secretions were suctioned and the bronchoscope was withdrawn. The patient tolerated the procedure well and was stable throughout the entire procedure. There were no immediate complications. MMODL / IJN: [id number] /
[2021-07-16 16:39] LABS: Glucose,Whole Blood 135 mg/dL (75-99)
[2021-07-16] MEDS: ATORVASTATIN 10 MG TAB PO SCH (17:11)
--- NOTE | 2021-07-16 20:32 | P.PN ---
Progress Note - Text Progress Note Date: 07/16/21 Chief Complaint: Short of breath This is a 70-year-old patient, follows with Dr. Mohan. Patient Office Rep Dr. Parker. Chronic stable medical conditions include hyperlipidemia,. long- standing COPD. patient was admitted in December 2020. Was not responding to regular treatment for COPD was underwent bronchoscopy lot of secretions was removed. Finally was discharged. On dislocation patient remains to be somewhat short of breath. But yesterday became increasingly short of breath. Started wheezing quite a bit. Cough not able to produce much slightly congested in the chest. No fever no chills. Appetite has been fine. No edema. No chest pain or palpitation. Admitted with severe COPD exacerbation and oropharyngeal candidiasis. Started on nebulized bronchodilators steroids Diflucan. July 13: Remains short of breath. Congested cough. Anxious. Patient r eassured. Continue IV steroids bronchodilators. Mucinex. July 14: Sitting up. Short of breath. Anxious. Congested cough. No expectorations. On IV steroids bronchodilators Mucinex. Diflucan. July 15: Oxygen humidified. Anxious. Congested cough. Bringing up some phlegm. Continue steroids bronchodilators Mucinex Diflucan. Bronchoscopy and couple of days July 16: Humidified oxygen. Underwent bronchoscopy today: Thick secretions noted. Hyperkalemia noted mucosal friability. Some secretions are very difficult to suction.. Postprocedure patient still short of breath. Short winded. Active Medications Acetaminophen (Acetaminophen Tab 325 Mg Tab) 650 mg PO Q6HR PRN PRN Reason: Mild Pain or Fever > 100.5 Last Admin: 07/12/21 22:47 Dose: 650 mg Documented by: Albuterol/Ipratropium (Ipratropium-Albuterol 3 Ml Neb) 3 ml INHALATION RT-Q4H PRN PRN Reason: Shortness Of Breath Or Wheezing Last Admin: 07/16/21 13:52 Dose: 3 ml Documented by: Albuterol/Ipratropium (Ipratropium-Albuterol 3 Ml Neb) 3 ml INHALATION RT-Q4H [facility] Last Admin: 07/16/21 16:15 Dose: 3 ml Documented by: Alprazolam (Alprazolam 0.25 Mg Tab) 0.25 mg PO Q6HR PRN PRN Reason: Anxiety Atorvastatin Calcium (Atorvastatin 10 Mg Tab) 10 mg PO W/SUPPER [facility] Last Admin: 07/16/21 17:11 Dose: 10 mg Documented by: Calcium Carbonate (Calcium Carb-Vit D 500 Mg-5 Mcg Tab) 1 each PO DAILY [facility] Last Admin: 07/16/21 13:52 Dose: 1 each Documented by: Calcium Carbonate/Glycine (Calcium Carbonate 500 Mg Chewable) 1,000 mg PO Q4HR PRN PRN Reason: Dyspepsia Carbamazepine (Carbamazepine Chew 100 Mg Chew) 100 mg PO TID PRN PRN Reason: SEZIURE Cholecalciferol (Cholecalciferol 25 Mcg (1000 Iu) Tablet) 25 mcg PO DAILY [facility] Last Admin: 07/16/21 13:53 Dose: 25 mcg Documented by: Enoxaparin Sodium (Enoxaparin 40 Mg/0.4 Ml Syringe) 40 mg SQ DAILY [facility] Last Admin: 07/16/21 13:52 Dose: 40 mg Documented by: Fluconazole (Fluconazole 150 Mg Tab) 150 mg PO DAILY [facility] Last Admin: 07/16/21 13:53 Dose: 150 mg Documented by: Guaifenesin (Guaifenesin 600 Mg Tablet.Er) 600 mg PO QID [facility] Last Admin: 07/16/21 17:10 Dose: 600 mg Documented by: Insulin Aspart (Insulin Aspart (Novolog) 100 Unit/Ml Vial) 0 unit SQ [facility]; Protocol Last Admin: 07/16/21 17:06 Dose: Not Given Documented by: Lactulose (Lactulose 20 Gm/30 Ml Cup) 20 gm PO DAILY PRN PRN Reason: Constipation Latanoprost (Latanoprost 0.005% Ophth Drops 2.5 Ml Btl) 1 drops BOTH EYES HS [facility] Last Admin: 07/15/21 20:26 Dose: 1 drops Documented by: Melatonin (Melatonin 3 Mg Tablet) 3 mg PO HS PRN PRN Reason: Insomnia Meloxicam (Meloxicam 7.5 Mg Tab) 15 mg PO DAILY PRN PRN Reason: Pain Methylprednisolone Sodium Succinate (Methylprednisolone Sod Succi 125 Mg/2 Ml Vial) 60 mg IV Q6HR [facility] Last Admin: 07/16/21 17:11 Dose: 60 mg Documented by: Naloxone HCl (Naloxone 0.4 Mg/Ml 1 Ml Vial) 0.2 mg IV Q2M PRN PRN Reason: Opioid Reversal Ondansetron HCl (Ondansetron 4 Mg/2 Ml Vial) 4 mg IVP Q8HR PRN PRN Reason: Nausea And Vomiting Trazodone HCl (Trazodone Hcl 50 Mg Tab) 50 mg PO HS PRN PRN Reason: Insomnia Last Admin: 07/14/21 20:26 Dose: 50 mg Documented by: Trimethoprim/Sulfamethoxazole (Sulfamethox-Tmp 800-160mg 1 Each Tab) 1 each PO BID [facility] Last Admin: 07/16/21 13:53 Dose: 1 each Documented by: Past medical history to include: COPD, hyperlipidemia Social history: Lives alone. Stop smoking around 1999. Smoked for about 31 years. No alcohol Family history: Father in his 50s from COPD was a smoker Physical examination: VITAL SIGNS: 98, 110, 18, 1 77 x 82, 98% 3 L GENERAL: , sitting up in bed, awake, short of breath. EYES: Pupils equal. Conjunctiva normal. HEENT: External appearance of nose and ears normal, oral cavity decreased white spots in the pharynx. NECK: JVD not raised; masses not palpable. HEART: First and second heart sounds are normal; no edema. LUNGS:[ Respiratory rate increased, diminished breath sounds prolonged e xpiration . ABDOMEN: Soft, nontender, liver spleen not palpable, no masses palpable. PSYCH: Alert and oriented x3; mood and affect slightly anxious. MUSCULOSKELETAL:No Clubbing/cyanosis;muscles-grossly intact. Evidence of OA INVESTIGATIONS, reviewed in the clinical context: White count 7.7 hemoglobin 13.2 platelets 347 potassium 4 creatinine 0.79 glucose 141 Lactic acid 2.2 Troponin I less than 0.012 proBNP 124 Coronavirus [PCR]: Not detected EKG tracing personally reviewed by me-P pulmonale, sinus tachycardia rate 126 Chest x-ray film personally reviewed by me-hyperinflated. No obvious infiltrate Assessment and plan: -Acute severe COPD exacerbation in a ex-smoker: Slow to respond Nebulized bronchodilators every 4 , IV steroids, inhaled steroids. Long-acting beta agonist. -Severe bronchial secretions. Cleared by lavage/bronchoscopy on July 16 Cultures pending -Pharyngeal candidiasis, from steroids Oral Diflucan -Hyperlipidemia Lipitor 10 mg with supper -Lactic acidosis type II. No sepsis -Hyperglycemia secondary to steroids. No diabetes Continue Nebulized bronchodilators, IV steroids, inhaled steroids, long-acting beta agonists. Subcu Lovenox. Diflucan. . flutter valve-helping. Follow with pulmonary
[2021-07-16 21:04] LABS: Glucose,Whole Blood 137 mg/dL (75-99)
[2021-07-16] MEDS: LATANOPROST 0.005% OPHTH DROPS 2.5 ML BTL BOTH EYES SCH (21:24)
[2021-07-16 22:29] LABS: Appearance,BF Cloudy
[2021-07-17] MEDS: methylPREDNISolone SOD SUCCI 125 MG/2 ML VIAL IV SCH ×2 (01:11→06:36)
[2021-07-17] MEDS: IPRATROPIUM-ALBUTEROL 3 ML NEB INHALATION SCH ×3 (04:02→11:28)
[2021-07-17 07:11] LABS: Glucose,Whole Blood 143 mg/dL (75-99)
[2021-07-17 07:28] VITALS: BP 154/81; TEMP 97.8
[2021-07-17] MEDS: INSULIN ASPART (NovoLOG) 100 UNIT/ML VIAL SQ SCH ×2 (07:37→13:01)
[2021-07-17] MEDS: guaiFENesin 600 MG TABLET.ER PO SCH ×2 (09:43→13:02)
[2021-07-17] MEDS: CALCIUM CARB-VIT D 500 MG-5 MCG TAB PO SCH (09:43)
[2021-07-17] MEDS: ENOXAPARIN 40 MG/0.4 ML SYRINGE SQ SCH (09:43)
[2021-07-17] MEDS: CHOLECALCIFEROL 25 MCG (1000 IU) TABLET PO SCH (09:43)
[2021-07-17] MEDS: SULFAMETHOX-TMP 800-160MG 1 EACH TAB PO SCH (10:05)
[2021-07-17] MEDS: FLUCONAZOLE 150 MG TAB PO SCH (10:05)
[2021-07-17 11:29] VITALS: PULSE 92
[2021-07-17 11:29] LABS: Glucose,Whole Blood 136 mg/dL (75-99)
[2021-07-17 11:39] VITALS: RESP 20
--- NOTE | 2021-07-17 11:53 | P.PN ---
Subjective Progress Note Date: 07/17/21 This is a 70-year-old female, familiar to my service, known to have history of severe COPD, FEV1 is 35% of the predicted value. Patient is maintained on Zithromax every other day, prednisone 5 mg daily, she is a former smoker, known history of glaucoma, her last admission to the hospital was back in February of 2021, at that time the patient came in with acute exacerbation of COPD, and she underwent bronchoscopy and BAL. Patient was found to have stenotrophomonas infection, treated with proper antibiotics, I believe the patient received Bactrim, and she responded well to treatment. Patient is here today with 2 days history of cough wheezing shortness of breath, cough, however she is unable to bring up any phlegm, intermittent wheezing, and not feeling well. No fever no chills no hemoptysis no chest pain. Chest x-ray showed no evidence of active disease, patient was admitted, and this consult was initiated. Reevaluated today on 07/13/21, patient remains symptomatic, continues to have intermittent episodes of cough and wheezing. However the patient is only on 2 L nasal cannula, and O2 saturations 98%. She is on antibiotics, bronchodilators, and steroids, in the past the patient required bronchoscopy and BAL to improve her pulmonary symptoms, and I wouldn't be surprised if that has to be done again. On 07/14/2021 patient seen in follow-up on medical surgical floor. Patient states she is improving, still has a congested cough, but feels comfortable, she is on 3 L of oxygen pulse ox is 99%, she is afebrile, hemodynamically she is stable, no complaints of chest discomfort. No fever chills, patient remains on IV Solu-Medrol 61 g every 6 hours, DuoNeb, and Bactrim DS. On 07/15/2021 patient is seen in follow-up on medical surgical floor. Patient states has been slow to improve, still quite congested, she is using the flutter valve, she is maximized on medical treatment, she is on Solu-Medrol 61 g every 6 hours, she is on breathing treatments, she is on Bactrim DS for empiric antibiotic coverage. Discussed possibility of bronchoscopy with BAL with the patient, she has had Bronchs in the past, she states in the past they have helped her recover faster. She is agreeable to proceed with the bronch with BAL possibly tomorrow or the next day. On 07/16/2021 patient seen in follow-up on medical surgical floor, she still quite congested, she states she is not able to clear much phlegm, she has been coughing quite a bit. She remains on IV Solu-Medrol 60 mg every 6 hours, breathing treatments, she is on Diflucan and Bactrim DS for empiric antibiotic coverage, vital signs have been stable, she is on 3 L of oxygen the pulse ox of 96%. She is scheduled for bronchoscopy with BAL today. The patient is seen today 07/17/2021 in follow-up on the regular medical floor. She is currently sitting up in bed. Awake and alert in no acute distress. Maintaining O2 saturations in the 90s on room air. Afebrile. Hemodynamically stable. Bronchial wash cultures revealed no growth. Blood glucose 136. Continued on DuoNeb inhalations, IV Solu-Medrol, antibiotics in the form of Bactrim. Lovenox for DVT prophylaxis. Remains on Diflucan. Objective - Vital Signs Vital signs: Vital Signs Temp 97.8 F 07/17/21 07:27 Pulse 92 07/17/21 11:38 Resp 20 07/17/21 11:38 BP 154/81 07/17/21 07:27 Pulse Ox 94 L 07/17/21 08:28 Intake & Output 07/16/21 07/17/21 07/17/21 18:59 06:59 18:59 Intake Total 550 236 Balance 550 236 Intake: IV 200 Oral 350 236 Other: Voiding Method Toilet Toilet Toilet # Voids 2 - Exam GENERAL EXAM: Alert, active, currently on room air, pleasant 71-year-old female patient, comfortable in no apparent distress. HEAD: Normocephalic. EYES: Normal reaction of pupils, equal size. NOSE: Clear with pink turbinates. THROAT: No erythema or exudates. NECK: No masses, no JVD. CHEST: No chest wall deformity. LUNGS: Equal air entry with no crackles, wheeze, rhonchi or dullness. CVS: S1 and S2 normal with no audible murmur, regular rhythm. ABDOMEN: No hepatosplenomegaly, normal bowel sounds, no guarding or rigidity. SPINE: No scoliosis or deformity SKIN: No rashes CENTRAL NERVOUS SYSTEM: No focal deficits, tone is normal in all 4 extremities. EXTREMITIES: There is no peripheral edema. No clubbing, no cyanosis. Peripheral pulses are intact. - Labs CBC & Chem 7: 07/12/21 06:48 07/12/21 06:48 Labs: Abnormal Lab Results - Last 24 Hours (Table) 07/16/21 07/16/21 07/17/21 Range/Units 16:37 21:01 07:10 POC Glucose (mg/dL) 135 H 137 H 143 H (75-99) mg/dL 07/17/21 Range/Units 11:28 POC Glucose (mg/dL) 136 H (75-99) mg/dL Microbiology - Last 24 Hours (Table) 07/12/21 09:18 Blood Culture - Preliminary Blood No Growth after 120 hours 07/12/21 09:05 Blood Culture - Preliminary Blood No Growth after 120 hours 07/15/21 12:30 Gram Stain - Final Sputum Sputum Culture - Final 07/16/21 12:00 Gram Stain - Preliminary Bronchial Washings - Right Bronchial Washings Culture - Preliminary 07/16/21 12:00 Acid Fast Bacilli Culture - Preliminary Bronchial Washings - Right 07/16/21 12:00 Fungal Culture - Preliminary Bronchial Washings - Right Assessment and Plan Assessment: 1. Acute exacerbation of COPD 2. Acute tracheobronchitis with previous history of stenotrophomonas infection, patient has been started on Bactrim DS, status post bronchoscopy with BAL on 07/16/2021 with removal of copious purulent secretions 3. History of severe COPD with FEV1 of 35% predicted 4. Former smoker 5. History of glaucoma Plan: The patient was seen and evaluated Stable for discharge from the pulmonary standpoint Continue her home pulmonary medications Please a prednisone taper starting at 40 mg daily for 4 days Complete her course of antibiotics Follow-up in the office in 1-2 weeks' I, the cosigning physician, performed a history & physical examination of the patient. Lungs sounds are clear. Maintaining good O2 saturations in the 90s on room air. I discussed the assessment and plan of care with my nurse practitioner, Francisca Madden. I attest to the above note as dictated by her.
--- NOTE | 2021-07-17 18:30 | P.DS ---
Providers Date of admission: 07/12/21 08:16 Expected date of discharge: 07/17/21 Attending physician: Deonte Nolen Consults: 07/12/21 08:13 Consult Physician Routine Consulting Provider: Margarito Parker Consult Reason/Comments: COPD exacerbation Do you want consulting provider notified?: Yes Primary care physician: [facility] Course: Chief Complaint: Short of breath This is a 70-year-old patient, follows with Dr. Mohan. Remote Sensing Advisor Dr. Parker. Chronic stable medical conditions include hyperlipidemia,. long- standing COPD. patient was admitted in December 2020. Was not responding to regular treatment for COPD was underwent bronchoscopy lot of secretions was removed. Finally was discharged. On dislocation patient remains to be somewhat short of breath. But yesterday became increasingly short of breath. Started wheezing quite a bit. Cough not able to produce much slightly congested in the chest. No fever no chills. Appetite has been fine. No edema. No chest pain or palpitation. Admitted with severe COPD exacerbation and oropharyngeal candidiasis. Started on nebulized bronchodilators steroids Diflucan. Patient remained very congested. On July 16 underwent bronchoscopy thick secretions were removed. Hyperemic and mucosal friability noted. July 17: Breathing much improved. Feeling better. Patient be discharged home. Short course of Bactrim DS. Diflucan. Questions answered Discussion and discharge planning more than 35 minutes Past medical history to include: COPD, hyperlipidemia Social history: Lives alone. Stop smoking around 1999. Smoked for about 31 years. No alcohol Family history: Father in his 50s from COPD was a smoker Physical examination: VITAL SIGNS: 97.8, 100, 18, 150/81, 94% room air GENERAL: , sitting up in chair, awake, breathing better EYES: Pupils equal. Conjunctiva normal. HEENT: External appearance of nose and ears normal, oral cavity decreased white spots in the pharynx. NECK: JVD not raised; masses not palpable. HEART: First and second heart sounds are normal; no edema. LUNGS:[ Respiratory rate increased, diminished breath sounds ABDOMEN: Soft, nontender, liver spleen not palpable, no masses palpable. PSYCH: Alert and oriented x3; mood and affect slightly anxious. MUSCULOSKELETAL:No Clubbing/cyanosis;muscles-grossly intact. Evidence of OA INVESTIGATIONS, reviewed in the clinical context: White count 7.7 hemoglobin 13.2 platelets 347 potassium 4 creatinine 0.79 glucose 141 Lactic acid 2.2 Troponin I less than 0.012 proBNP 124 Coronavirus [PCR]: Not detected EKG tracing personally reviewed by Mauro pulmonale, sinus tachycardia rate 126 Chest x-ray film personally reviewed by me-katie. No obvious infiltrate Assessment and plan: -Acute severe COPD exacerbation in a ex-smoker: Better Nebulized bronchodilators every 4 , IV steroids, inhaled steroids. Long-acting beta agonist. -Severe bronchial secretions. Cleared by lavage/bronchoscopy on July 16 -Pharyngeal candidiasis, from steroids Oral Diflucan -Hyperlipidemia Lipitor 10 mg with supper -Lactic acidosis type II. No sepsis -Hyperglycemia secondary to steroids. No diabetes Disposition: Home Patient Condition at Discharge: Fair Plan - Discharge Summary New Discharge Prescriptions: New Sulfamethox-Tmp 800-160Mg [Bactrim DS 800-160 mg] 1 each PO BID #10 tab Fluconazole [Diflucan] 150 mg PO DAILY #10 tab Continue Tiotropium [place] [Spiriva] 1 cap INHALATION RT-DAILY Mometasone/Formoterol [Dulera 200 Mcg-5 Mcg Inhaler] 2 puff INHALATION RT-BID Bimatoprost [[place]umigan .01% Ophth Soln] 1 drop BOTH EYES HS carBAMazepine 100 mg PO TID PRN PRN Reason: SEZIURE Azithromycin 250 mg PO MOWEFR Calcium Carbonate/Vitamin D3 [Calcium 600 mg-D3 10 Mcg (400 Iu)] 1 cap PO DAILY Albuterol Nebulized [Ventolin Nebulized] 2.5 mg INHALATION RT-Q4H PRN PRN Reason: Shortness Of Breath traZODone HCL [Desyrel] 50 mg PO HS PRN PRN Reason: Insomnia Meloxicam [Mobic] 15 mg PO DAILY PRN PRN Reason: Pain Cholecalciferol [Vitamin D3 (25 Mcg = 1000 Iu)] 25 mcg PO DAILY Atorvastatin [Lipitor] 10 mg PO W/SUPPER methylPREDNISolone [Medrol Dose Pack] See Taper PO DAILY predniSONE 5 mg PO Q48H Discharge Medication List Bimatoprost [[place] .01% Ophth Soln] 1 drop BOTH EYES HS 10/13/17 [History] Mometasone/Formoterol [Dulera 200 Mcg-5 Mcg Inhaler] 2 puff INHALATION RT-BID 10/13/17 [History] Tiotropium [place] [Spiriva] 1 cap INHALATION RT-DAILY 10/13/17 [History] Albuterol Nebulized [Ventolin Nebulized] 2.5 mg INHALATION RT-Q4H PRN 03/19/21 [History] Atorvastatin [Lipitor] 10 mg PO W/SUPPER 03/19/21 [History] Cholecalciferol [Vitamin D3 (25 Mcg = 1000 Iu)] 25 mcg PO DAILY 03/19/21 [History] Meloxicam [Mobic] 15 mg PO DAILY PRN 03/19/21 [History] carBAMazepine 100 mg PO TID PRN 03/19/21 [History] traZODone HCL [Desyrel] 50 mg PO HS PRN 03/19/21 [History] Azithromycin 250 mg PO MOWEFR 07/12/21 [History] Calcium Carbonate/Vitamin D3 [Calcium 600 mg-D3 10 Mcg (400 Iu)] 1 cap PO DAILY 07/12/21 [History] methylPREDNISolone [Medrol Dose Pack] See Taper PO DAILY 07/12/21 [History] predniSONE 5 mg PO Q48H 07/12/21 [History] Fluconazole [Diflucan] 150 mg PO DAILY #10 tab 07/17/21 [Rx] Sulfamethox-Tmp 800-160Mg [Bactrim DS 800-160 mg] 1 each PO BID #10 tab 07/17/21 [Rx] Follow up Appointment(s)/Referral(s): Margarito Parker MD [Family Provider] - 07/25/21 1:00 pm Jluis Mohan DO [Primary Care Provider] - 07/18/21 1:20 pm Patient Instructions/Handouts: COPD (Chronic Obstructive Pulmonary Disease) (DC) Discharge Disposition: HOME SELF-CARE
[2021-07-18] MEDS ORDERED: predniSONE 20 MG TAB PO SCH (09:00)
== END 2021-07-17 15:14 | disposition home or self-care (01) | DRG 191 ==
LOC: EC 06:35 → 5NMEDONC 08:16 → 4SSUR 16:48
PROVIDERS: ADMIT Hospitalist; ATTEND Hospitalist
PROC: 0B9D8ZX Drainage of Right Middle Lung Lobe, Via Natural or Artificial Opening Endoscopic, Diagnostic (ICD-10-PCS; principal; 2021-07-16 11:30)
DX: J44.1 Chronic obstructive pulmonary disease with (acute) exacerbation (principal); B37.0 Candidal stomatitis; E87.2 Acidosis; H40.9 Unspecified glaucoma; B96.89 Other specified bacterial agents as the cause of diseases classified elsewhere; R73.9 Hyperglycemia, unspecified; T38.0X5A Adverse effect of glucocorticoids and synthetic analogues, initial encounter; J44.0 Chronic obstructive pulmonary disease with (acute) lower respiratory infection; F41.9 Anxiety disorder, unspecified; G47.00 Insomnia, unspecified; K59.00 Constipation, unspecified; J20.9 Acute bronchitis, unspecified; E87.5 Hyperkalemia; Z20.822 Contact with and (suspected) exposure to COVID-19; E78.5 Hyperlipidemia, unspecified; Z87.891 Personal history of nicotine dependence; Z79.51 Long term (current) use of inhaled steroids; Z79.52 Long term (current) use of systemic steroids; Z79.899 Other long term (current) drug therapy; Z98.42 Cataract extraction status, left eye; Z98.41 Cataract extraction status, right eye; Z96.1 Presence of intraocular lens; Z82.5 Family history of asthma and other chronic lower respiratory diseases; Z82.49 Family history of ischemic heart disease and other diseases of the circulatory system; Z82.3 Family history of stroke; Z88.8 Allergy status to other drugs, medicaments and biological substances
CPT/HCPCS: 31624; 31645; 36415; 71046; 80053; 83605; 83735; 83880; 84145; 84484; 85025; 85610; 85730; 87040; 87070; 87102; 87116; 87205; 87206; 87252; 87635; 88108; 88305; 89050; 93005; 94640; 94667; 94760; 99285

== ENCOUNTER → 2021-09-19 | Outpatient (CLI) | payer MEDICARE ==
--- NOTE | 2021-09-22 11:22 | MM ---
Reason for exam: screening (asymptomatic). Last mammogram was performed 1 year and 1 month ago. History: Patient is postmenopausal and is nulliparous. Family history of breast cancer in sister at age 58. Benign stereotactic core biopsy of the left breast, January 14, 2004. Core biopsy of the left breast. Took hormonal contraceptives for 1 year. Physical Findings: A clinical breast exam by your physician is recommended on an annual basis and results should be correlated with mammographic findings. MG Screening Mammo w CAD Bilateral CC and MLO view(s) were taken. Prior study comparison: August 14, 2020, bilateral MG screening mammo w CAD. June 08, 2019, bilateral MG screening mammo w CAD. The breast tissue is extremely dense which could obscure a lesion on mammography. Previous mammotome biopsy in the left breast. No significant changes when compared with prior studies. ASSESSMENT: Benign, BI-RAD 2 RECOMMENDATION: Routine screening mammogram of both breasts in 1 year.
== END | disposition home or self-care (01) ==
LOC: RADMAMWWP 12:25
PROVIDERS: ATTEND Obstetrics & Gynecology
DX: Z12.31 Encounter for screening mammogram for malignant neoplasm of breast (principal); Z78.0 Asymptomatic menopausal state; Z80.3 Family history of malignant neoplasm of breast
CPT/HCPCS: 77067

== ENCOUNTER → 2022-09-21 | Outpatient (CLI) | payer MEDICARE ==
--- NOTE | 2022-09-21 16:07 | BD ---
EXAMINATION TYPE: Axial Bone Density DATE OF EXAM: 09/21/2022 CLINICAL HISTORY: 72 years old Female. ICD-10 CODE: M85.88 DISORDER OF BONE DENSITY Comparison: Prior DEXA bone scan 2020 Height: 64 Weight: 142.8 FRAX RISK QUESTIONS: Alcohol (3 or more units per day): no Family History (Parent hip fracture): mother Glucocorticoids (More than 3mos): yes past 10 years History of Fracture in Adulthood: foot Secondary Osteoporosis: 1. Type 1 Diabetes: no 2. Hyperthyroidism: no 3. Menopause before 45: no 4. Malnutrition: no 5. Chronic liver disease: no Rheumatoid Arthritis: no Current Tobacco Use: no RISK FACTORS HISTORY OF: Hip Fracture (Right/Left): no Spine Fracture: no History of Wrist Fracture: no Surgery to Spine/Hip(right/left)/Wrist (right/left): no Family History of Osteoporosis: mother, sister, Active: somewhat Diet low in dairy products/other sources of calcium: yes Postmenopausal woman: no Take estrogen and/or progesterone medications: no Lost more than 2 inches in height since high school: yes Frequent falls: no Poor Health: no Hyperparathyroidism: no Adrenal Insufficiency: no MEDICATIONS: Prednisone or other steroids: prednisone How Long: past 2 years Thyroid Medications: no Osteoporosis Medications: no Additional Medications: inhaler past 10 years, calcium, Vit D , Azithromycin Additional History: EXAM MEASUREMENTS: Bone mineral densitometry was performed using the [employer] System. Bone mineral density as measured about the Lumbar spine is: ----- L1-L4(G/cm2): 0.979 T Score Values are as follows: ----- L1: -2.1 ----- L2: -1.3 ----- L3: -1.3 ----- L4: -2.2 ----- L1-L4: -1.7 Z Score Values are as follows: ----- L1: -0.4 ----- L2: 0.4 ----- L3: 0.4 ----- L4: -0.4 ----- L1-L4: 0.0 Bone mineral density has: decreased -5.3 % since study of: 08/14/2022 Bone mineral density about the R hip (g/cm2): 0.747 Bone mineral density about the L hip (g/cm2): 0.738 T Score values are as follows: -----R Neck: -1.0 -----L Neck: -2.2 -----R Total: -2.1 -----L Total: -2.1 Z Score values are as follows: -----R Neck: 0.7 -----L Neck: -0.4 -----R Total: -0.5 -----L Total: -0.6 Bone mineral density has: DECREASED -6.8 % since study of: 08/14/2020 FRAX%s: The graph provided illustrates a 34.1% chance for a major osteoporotic fx and a 16.3% chance for the hips probability for fx in 10 years time. IMPRESSION: Osteopenia (T Score between -2.5 and -1) remains present. There is slightly increased risk of fracture and the patient may be considered for treatment. Re-Screen 2-5 years. NOTE: T-SCORE=SD OF THE YOUNG ADULT MEAN.
--- NOTE | 2022-09-22 18:59 | MM ---
Reason for Exam: Screening (asymptomatic). Last screening mammogram was performed 12 month(s) ago. Patient History: Menarche at age 12. Patient has no children. Hormonal Contraceptives for 1 year until age 21. Core Biopsy on the Left side. 01/14/2004, Benign Stereotactic Core Biopsy on the left side. Sister had breast cancer, age 58. Risk Values: Lesley 5 year model risk: 5.2%. NCI Lifetime model risk: 13.0%. Prior Study Comparison: 06/08/2019 Bilateral Screening Mammogram, [facility]. 08/14/2020 Bilateral Screening Mammogram, [facility]. 09/19/2021 Bilateral Screening Mammogram, [facility]. Tissue Density: The breast tissue is heterogeneously dense. This may lower the sensitivity of mammography. Findings: Analyzed By CAD. Microcalcification 11:00 anterior depth right breast. Further magnification views are recommended. Microclip left breast from prior biopsy. Otherwise, no significant change. Overall Assessment: Incomplete: need additional imaging evaluation, BI-RAD 0 Management: Special View Mammogram of the right breast. For new anterior right breast microcalcifications. [facility] will attempt to contact patient to return for supplemental views and ultrasound if indicated. Electronically signed and approved by: Tucker Zuluaga M.D. Radiologist
== END | disposition home or self-care (01) ==
LOC: RADMAMWWP 14:34
PROVIDERS: ATTEND Obstetrics & Gynecology
DX: Z12.31 Encounter for screening mammogram for malignant neoplasm of breast (principal); M85.89 Other specified disorders of bone density and structure, multiple sites; Z80.3 Family history of malignant neoplasm of breast
CPT/HCPCS: 77063; 77067; 77080

== ENCOUNTER → 2022-09-24 | Outpatient (CLI) | payer MEDICARE ==
--- NOTE | 2022-09-24 11:22 | MM ---
Reason for Exam: Additional evaluation requested from prior study. Last screening mammogram was performed less than 1 month ago. Patient History: Menarche at age 12. Patient has no children. Hormonal Contraceptives for 1 year until age 21. Core Biopsy on the Left side. 01/14/2004, Benign Stereotactic Core Biopsy on the left side. Sister had breast cancer, age 58. Risk Values: Lesley 5 year model risk: 5.2%. NCI Lifetime model risk: 13.0%. Tissue Density: Right: The breast tissue is heterogeneously dense. This may lower the sensitivity of mammography. Findings: Analyzed By CAD. New grouped heterogeneous microcalcifications 11:00 anterior right breast. Further tissue sampling is recommended. Overall Assessment: Suspicious, BI-RAD 4 Management: Stereotactic Core Biopsy of the right breast. For the 11:00 anterior right breast microcalcifications. Results were given to the patient verbally at the time of exam. Electronically signed and approved by: Tucker Zuluaga M.D. Radiologist
== END | disposition home or self-care (01) ==
LOC: RADMAMWWP 10:08
PROVIDERS: ATTEND Obstetrics & Gynecology
DX: R92.8 Other abnormal and inconclusive findings on diagnostic imaging of breast (principal); Z80.3 Family history of malignant neoplasm of breast; Z98.890 Other specified postprocedural states
CPT/HCPCS: 77065; G0279; 77061

== ENCOUNTER → 2022-10-08 | Day surgery (SDC) | payer MEDICARE ==
[2022-10-08 10:12] VITALS: BP 149/82; RESP 12
[2022-10-08 11:10] VITALS: PULSE 79; TEMP 98.7
--- NOTE | 2022-10-16 10:12 | MM ---
Risk Values: Lesley 5 year model risk: 5.2%. NCI Lifetime model risk: 13.0%. Prior Study Comparison: 09/19/2021 Bilateral Screening Mammogram, [facility]. 09/21/2022 Bilateral MG 3D screening mammo w/cad, [facility]. 09/24/2022 Right MG 3D work up w/cad RT, [facility]. Pathology Description: Approach: CC FA Needle Type: Eviva Cores: 10 Skin Nicks: 1 Gauge: 9 The procedure of stereotactic guided core biopsy was explained to the patient. Benefits, alternatives, and risks were discussed. An informed consent was then obtained. The shortness pathway for biopsy was chosen. Shortness pathway was a superior approach. I performed the localization followed by the remainder of the procedure. A vacuum assisted biopsy gun was used to obtain multiple 10 core samples. The patient tolerated the procedure well without any immediate complication. The patient was kept in the radiology department for short stay after the procedure and then discharged home in stable condition. Targeted calcifications are identified in specimen mammogram. Post biopsy mammogram shows the clip to appear in satisfactory position relative to the targeted area of concern on the preprocedure images. Some residual calcifications are present along the posterior margin of the clip. IMPRESSION: SUCCESSFUL, UNCOMPLICATED STEREOTACTIC GUIDED CORE BIOPSY NEW 11-12 O'CLOCK ANTERIOR LEFT BREAST MICROCALCIFICATIONS. Pathology Results: Result: Malignant, Invasive ductal carcinoma. 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 See Surgical Pathology Cancer Case Summary and Comment. Overall Assessment: Malignant Management: Surgical Consultation of the right breast. Electronically signed and approved by: Tucker Zuluaga M.D. Radiologist
== END ==
LOC: RADMAMWWP 09:54
PROVIDERS: ATTEND Surgery
DX: C50.911 Malignant neoplasm of unspecified site of right female breast (principal)
CPT/HCPCS: 19081; A4648; J2001; 88305; 88341; 88342

== ENCOUNTER 2022-10-16 08:14 | Day surgery (SDC) | payer MEDICARE ==
[2022-10-14 08:33] VITALS: BMI 24.0
[~2022-10-16 08:14] MED LIST: LACTATED RINGERS 1,000 ML IV SCH
[2022-10-16 08:40] VITALS: TEMP 98.6
[2022-10-16 08:53] LABS: Glucose,Whole Blood 86 mg/dL (70-110)
[2022-10-16] MEDS ORDERED: HYDROCORTISONE SUCCINATE 100 MG/2 ML VIAL IVP ONE (08:54)
[2022-10-16] MEDS ORDERED: PROPOFOL 10 MG/ML 20 ML VIAL IV ONE (10:47)
[2022-10-16] MEDS ORDERED: LIDOCAINE 2% INJ 20 MG/ML (2 ML VIAL) ONE (10:47)
--- NOTE | 2022-10-16 11:16 | P.PCN ---
Date of Procedure: 10/16/22 Procedure(s) Performed: BRIEF HISTORY: Patient is a 72-year-old, pleasant, white female scheduled for an upper endoscopy as a part of evaluation of intermittent dysphagia to solids for the last several months duration. She has the symptoms usually with meat and bread. She is hence scheduled for possible dilation today. PROCEDURE PERFORMED: Esophagogastroduodenoscopy with biopsy and dilation. PREOPERATIVE DIAGNOSIS: Intermittent dysphagia to solids of 6 months duration. IV sedation per anesthesia. PROCEDURE: After informed consent was obtained, the patient was brought into the endoscopy unit. IV sedation was administered by Anesthesia under continuous monitoring. Initially the Olympus GIF-140 video endoscope was inserted into the mouth. Esophagus intubated without any difficulty. It was gradually advanced into the stomach and duodenum and carefully examined. The bulb and the second part of the duodenum appeared normal. The scope at this time was withdrawn to the stomach, adequately insufflated with air, and upon careful examination, mucosa of the antrum, mild gastritis and biopsies were done from this area. Mucosa body, cardia and the fundus appeared normal. The scope was then withdrawn into the esophagus. The GE junction was located at 39 cm from the incisors. Small hiatal hernia noted. There was a short segment of Phan's esophagus extending 3 mm proximal to the GE junction which was biopsied. There was a distal esophageal Schatzki's ring identified and this was dilated using 18-20 mm TTS balloon in a sequential fashion for 6 seconds. The rest of the esophagus appeared normal and the patient tolerated the procedure well. IMPRESSION: 1. Widely patent distal esophageal Schatzki's ring status post balloon dilation using 18-20 mm TTS balloon as described above. 2. Small hiatal hernia and short segment Phan's esophagus 3. Mild antral gastric. RECOMMENDATIONS: The findings of this examination were discussed with the patient as her family. She was advised to follow with the biopsy results. If the biopsy of Phan's esophagus he can have a repeat upper endoscopy in 2 years. In the meantime I suggested that she can try Prilosec 20 mg daily for 6 weeks to see for any improvement in his symptoms.
[2022-10-16 11:26] VITALS: RESP 16
[2022-10-16 11:34] VITALS: BP 167/83; PULSE 90
== END 2022-10-16 12:00 | disposition home or self-care (01) ==
LOC: ORWHC2ENDO 08:14
PROVIDERS: ATTEND Internal Medicine Gastroenterology
DX: K29.50 Unspecified chronic gastritis without bleeding (principal); K22.2 Esophageal obstruction; K44.9 Diaphragmatic hernia without obstruction or gangrene; K22.70 Barrett's esophagus without dysplasia; E78.5 Hyperlipidemia, unspecified; J44.9 Chronic obstructive pulmonary disease, unspecified; Z79.899 Other long term (current) drug therapy; Z88.8 Allergy status to other drugs, medicaments and biological substances; Z98.890 Other specified postprocedural states
CPT/HCPCS: 88305; 43239; 43249; J1720; J2704; J2001; C1726

== ENCOUNTER → 2022-11-27 | Outpatient (CLI) | payer MEDICARE ==
--- NOTE | 2022-12-08 13:50 | BMR ---
EXAMINATION TYPE: MR breast BILAT wo/w con DATE OF EXAM: 11/27/2022 6:09 PM COMPARISON: Mammography 09/24/2022 as well as 09/21/2022 HISTORY: Right breast cancer. HX of biopsy. CONTRAST: The patient was injected with 6.5 mL intravenous Gadavist gadolinium contrast. TECHNIQUE: Precontrast T1 and T2 coronal, axial and high-resolution STIR sagittal images were acquire d. Postcontrast dynamic images were acquired.This study was processed using a [employer] computer-aid ed detection system to optimize radiologist interpretation by generating multiplanar and three-dimens ional reconstructions, creating subtraction images from the dynamic contrast data and computing tumor volumes and dimensions. FINDINGS: Right breast: There is scattered fibroglandular tissue seen with mild adenosis present. Postbiopsy c hanges are noted at the right 11:00 position approximately 3.6 cm from the nipple. Microclip marker s ignal void defect is noted to be in place. There is postprocedural nonmass enhancement seen adjacent to the clip. There is no evidence for multifocal disease. There is no evidence for an enhancing mass. No skin thickening or nipple retraction is seen. No axillary adenopathy present. Left breast: There is scattered fibroglandular tissue seen with mild adenosis present. Microclip mar ker noted in place from prior biopsy. There is no evidence for an enhancing mass or pathologic enhanc ement. No skin thickening or nipple retraction is seen. No axillary adenopathy present. IMPRESSION: 1. Right breast: BI-RADS 5 biopsy-proven malignancy. Needle localization with open biopsy recommended . No evidence for adenopathy or multifocal disease. 2. Left breast: BI-RADS Category 2 benign RECOMMENDATION: MR is approximately 98% specific in excluding invasive or infiltrative malignant neop lasm when hypovascularity or absence of enhancement is determined. Rare hypovascular neoplasms includ e mucinous carcinomas and tubular carcinomas. MR may not detect low-grade of DCIS and unusual instan amrik of hypovascular lobular carcinomas have been reported. Mr breast findings should not be used to mitigate against biopsy in cases where there is substantive mammographic evidence of malignancy. Mri is not a suitable substitute for yearly screening mammogram unless the patient has extremely dense b reasts and the mammography study is limited or un-interpretable at which point the decision to substi tute MR is at the discretion of the patient and the patients clinician.
== END | disposition home or self-care (01) ==
LOC: RADMRIMAIN 17:09
PROVIDERS: ATTEND Surgery
DX: C50.911 Malignant neoplasm of unspecified site of right female breast (principal)
CPT/HCPCS: C8908; A9585; 77049

== ENCOUNTER 2022-12-21 09:54 | Day surgery (SDC) | payer MEDICARE ==
--- NOTE | 2022-12-21 07:41 | P.GSHP ---
History of Present Illness H&P Date: 12/21/22 Chief Complaint: Right breast cancer 72-year-old female underwent a recent right breast workup. She was found have calcifications. Stereo core biopsy showed triple negative invasive ductal carcinoma. Patient is asymptomatic. Family history of breast cancer in her sister. She has been seen by oncology preoperatively. She was presented at tumor board. It was decided to order an MRI of the breast to evaluate proximity to the nipple areola complex and to rule out non-mass enhancement. MRI showed no findings to contraindicate breast conservation. Patient has been interested in lumpectomy from the onset. Past Medical History Past Medical History: COPD, Eye Disorder, Hyperlipidemia Additional Past Medical History / Comment(s): Bronchitis, bilateral eyes with increased intraocular pressure-not glaucoma yet, neuralgia R side forhead in past,daily steroid, FOOD GETS STUCK IN THROAT, BLOATING History of Any Multi-Drug Resistant Organisms: None Reported Past Surgical History: Breast Surgery, Hernia Repair, Orthopedic Surgery Additional Past Surgical History / Comment(s): Bilateral carpal tunnel; bilateral cataract removal with lens, bronchoscopy, R inguinal hernia repair, colonoscopy, benign L breast biopsy. RT BREAST BIOSPY, Past Anesthesia/Blood Transfusion Reactions: No Reported Reaction Smoking Status: Former smoker - Past Family History Father Family Medical History: COPD Additional Family Medical History / Comment(s): Father in his 50s of COPD. He was a smoker. Mother Family Medical History: CVA/TIA, Hypertension, Pneumonia Additional Family Medical History / Comment(s): Mother fell at age 85 and fractured her hip. Post op she became HTN and had a stroke and then ended up with pneumonia and . Medications and Allergies Home Medications Medication Instructions Recorded Confirmed Type Bimatoprost [Lumigan 0.01% Ophth 1 drop BOTH EYES HS 10/13/17 12/18/22 History Soln] Mometasone/Formoterol [Dulera 200 2 puff INHALATION RT-BID 10/13/17 12/18/22 History Mcg-5 Mcg Inhaler] Tiotropium [place] [Spiriva] 1 cap INHALATION RT-DAILY 10/13/17 12/18/22 History Albuterol Nebulized [Ventolin 2.5 mg INHALATION RT-Q4H PRN 03/19/21 12/18/22 History Nebulized] Atorvastatin [Lipitor] 10 mg PO W/SUPPER 03/19/21 12/18/22 History Azithromycin 250 mg PO MOWEFR 07/12/21 12/18/22 History Calcium Carbonate/Vitamin D3 1 cap PO DAILY 07/12/21 12/18/22 History [Calcium 600 mg-D3 10 Mcg (400 Iu)] predniSONE 5 mg PO DAILY 07/12/21 12/18/22 History guaiFENesin [Mucinex] 600 mg PO Q12H 10/14/22 12/18/22 History Omeprazole 20 mg PO DAILY 12/18/22 12/18/22 History Allergies Allergy/AdvReac Type Severity Reaction Status Date / Time budesonide [From Symbicort] AdvReac ANXIETY Verified 12/18/22 08:29 formoterol [From Symbicort] AdvReac ANXIETY Verified 12/18/22 08:29 zolpidem [From Ambien] AdvReac Hallucinati Verified 12/18/22 08:29 ons Surgical - Exam Physical exam: General: Well-developed, well-nourished HEENT: Normocephalic, sclerae nonicteric Right breast: Recent biopsy site changes noted, no palpable adenopathy or residual mass Left breast: No masses or adenopathy Abdomen: Nontender, nondistended Extremities: No edema Neuro: Alert and oriented Assessment and Plan (1) Breast cancer, right Narrative/Plan: 72-year-old female with right-sided breast cancer. We'll proceed with right b reast wire localization lumpectomy with sentinel lymph node biopsy and injection. Risks of bleeding, infection, scarring, dimpling, numbness, poor healing, seroma, nerve injury, lymphedema, recurrence, possible need for further surgeries reviewed. Patient understands and wishes to proceed. Status: Acute Code(s): C50.911 - MALIGNANT NEOPLASM OF UNSP SITE OF RIGHT FEMALE BREAST SNOMED Code(s): 514601330
--- NOTE | 2022-12-21 07:42 | P.NAPBC ---
NAPBC Queries - NAPBC Queries Was patient's case review presented at [facility] tumor board? If no, comment.: Yes Was patient's pathology reviewed at [facility]? If no, comment.: Yes Was breast conservation surgery offered? If no, comment.: Yes Was sentinel node biopsy offered? If no, comment.: Yes Was diagnosis confirmed by percutaneous core biopsy? If no, comment.: Yes Is patient mastectomy patient?: No Was a preop referral to reconstructive surgeon offered?: Yes Clinical Stage: 1b
[~2022-12-21 09:54] MED LIST changes: +ACETAMINOPHEN TAB 500 MG TAB PO PRN; +HEPARIN SODIUM,PORCINE/PF 5,000 UNIT/0.5 ML SYRINGE SQ PRN; -LACTATED RINGERS 1,000 ML IV SCH; +Pre Op ABX Message 1 EACH MISC MISCELLANE ONE
[2022-12-21] MEDS ORDERED: LACTATED RINGERS 1,000 ML IV ONE ×2 (10:20→13:50)
[2022-12-21 10:35] LABS: Glucose,Whole Blood 101 mg/dL (70-110)
[2022-12-21] MEDS ORDERED: ONDANSETRON 4 MG/2 ML VIAL ONE (10:35)
[2022-12-21] MEDS ORDERED: ALPRAZolam 0.25 MG TAB ONE (10:35)
[2022-12-21] MEDS ORDERED: ALPRAZolam 0.25 MG TAB PO ONE (10:37)
[2022-12-21] MEDS ORDERED: ONDANSETRON 4 MG/2 ML VIAL IVP ONE (10:38)
[2022-12-21] MEDS ORDERED: HYDROCORTISONE SUCCINATE 100 MG/2 ML VIAL IVP ONE (10:47)
[2022-12-21] MEDS ORDERED: LIDOCAINE 1% INJ 10MG/ML (20 ML MDV) SQ ONE (11:44)
[2022-12-21] MEDS ORDERED: LIDOCAINE 2% INJ 20 MG/ML (2 ML VIAL) ONE (12:19)
[2022-12-21] MEDS ORDERED: PROPOFOL 10 MG/ML 20 ML VIAL IV ONE (12:19)
[2022-12-21] MEDS ORDERED: fentaNYL (PF) 50 MCG/ML 2 ML AMP ONE (12:19)
[2022-12-21] MEDS ORDERED: MIDAZOLAM 2 MG/2 ML VIAL ONE (12:19)
[2022-12-21] MEDS ORDERED: BUPIVACAINE (PF) 0.25% 30 ML VIAL SQ ONE ×2 (12:32→13:34)
--- NOTE | 2022-12-21 12:43 | NM ---
EXAMINATION TYPE: NM sentinel node injection DATE OF EXAM: 12/21/2022 COMPARISON: Same day needle localization CLINICAL INDICATION: Female, 72 years old with history of Breast cancer; TECHNIQUE AND FINDINGS: The procedure of sentinel lymph node injection was explained to the patient. The benefits, alternatives, and risks were discussed. An informed consent was then obtained. Overlying skin is cleaned with sterile alcohol. Following this, 476 uCi Tc99m Tilmanocept was inject ed in the upper outer aspect of the right nipple intradermally. The patient tolerated the procedure well without any immediate complication. The patient was kept in the radiology department for short stay after the procedure and then taken to surgery for surgical p rocedure what is presumed intraoperative gamma probe will be used for sentinel lymph node detection. IMPRESSION: Right breast radiotracer injection for sentinel node localization as above.
[2022-12-21] MEDS ORDERED: ceFAZolin 1,000 MG VIAL ONE (12:45)
[2022-12-21] MEDS ORDERED: SODIUM CHLORIDE 0.9% 100 ML BAG ONE (12:45)
[2022-12-21] MEDS ORDERED: SODIUM CHLORIDE 0.9% 50 ML with ceFAZolin 2,000 MG IV ONE ×2 (12:45)
[2022-12-21] MEDS ORDERED: ACETAMINOPHEN TAB 325 MG TAB PO PRN (13:46)
[2022-12-21] MEDS ORDERED: NALOXONE 0.4 MG/ML 1 ML VIAL IV PRN (13:46)
[2022-12-21] MEDS ORDERED: traMADol 50 MG TAB PO PRN (13:46)
--- NOTE | 2022-12-21 13:51 | P.OP ---
Date of Procedure: 12/21/22 Procedure(s) Performed: PREOPERATIVE DIAGNOSIS: Right breast cancer POSTOPERATIVE DIAGNOSIS: Same PROCEDURE: Right Breast wire localization lumpectomy with sentinel lymph node biopsy SURGEON: Akosua EBL: Minimal ANESTHESIA: General COMPLICATIONS: None OPERATIVE PROCEDURE: Patient was placed on the operating room table in the supine position. 2 mL of methylene blue was injected into the subareolar space. The breast was then massaged for 5 minutes. The breast was prepped and draped in usual sterile fashion. The right axilla was addressed at that time. The hot spot in the right axilla was identified. A small curvilinear incision was made using the scalpel. Dissection down through the subcutaneous tissues took place using electrocautery. Using the neoprobe I identified a single fatty replaced lymph node that was both blue in color and radioactive. After this was removed there was no residual blue lymph nodes or radioactivity within the axilla. This lymph node was then sent to pathology for permanent sectioning. The surgical site was inspected and no bleeding was seen. The subcutaneous tissues were closed using 3-0 Vicryl sutures. The skin was closed using 4-0 Monocryl sutures. The wire entrance site was then addressed. This was present at the 10:00 location periareolar. A curvilinear incision was made adjacent to the areola. I followed the wire down into the breast tissue. An adequate lumpectomy specimen then took place around the wire. Margins of 1.5-2 cm worth attempted to be achieved. Palpation of the specimen suggested that the posterior and superior margins were somewhat close. I took an additional margin posteriorly and superiorly and these margins were painted the appropriate color on the new margin side. The initial specimen was also painted the appropriate 6 colors. Clips were used to identify the lumpectomy cavity. The clip was confirmed to be within the lumpectomy specimen by radiology. The subcutaneous tissues were closed using 3-0 Vicryl sutures. The skin was closed using a running 4-0 Monocryl stitch. Skin glue was then applied. DISPOSITION: Stable to recovery room
[2022-12-21 14:07] VITALS: TEMP 97.8
[2022-12-21] MEDS ORDERED: HYDROmorphone 0.5 MG/0.5 ML SYRINGE IVP ONE ×2 (14:11→14:20)
--- NOTE | 2022-12-21 14:15 | MM ---
Electronically signed and approved by: Bucky Amor, DO
[2022-12-21] MEDS ORDERED: ENALAPRILAT 1.25 MG/ML 1 ML VIAL IV ONE (15:40)
[2022-12-21 16:58] VITALS: PULSE 76; RESP 18
[2022-12-21 16:59] VITALS: BP 135/71
== END 2022-12-21 16:33 ==
LOC: OR 09:54
PROVIDERS: ATTEND Surgery
DX: C50.911 Malignant neoplasm of unspecified site of right female breast (principal); J44.9 Chronic obstructive pulmonary disease, unspecified; E78.5 Hyperlipidemia, unspecified; H40.053 Ocular hypertension, bilateral; R13.10 Dysphagia, unspecified; Z98.890 Other specified postprocedural states; Z97.2 Presence of dental prosthetic device (complete) (partial); Z98.42 Cataract extraction status, left eye; Z98.41 Cataract extraction status, right eye; Z96.1 Presence of intraocular lens; Z87.891 Personal history of nicotine dependence; Z83.6 Family history of other diseases of the respiratory system; Z80.3 Family history of malignant neoplasm of breast; Z82.49 Family history of ischemic heart disease and other diseases of the circulatory system; Z82.3 Family history of stroke; Z79.52 Long term (current) use of systemic steroids; Z79.51 Long term (current) use of inhaled steroids; Z79.899 Other long term (current) drug therapy; Z88.8 Allergy status to other drugs, medicaments and biological substances
CPT/HCPCS: 76098; 19281; 38792; 19301; 38525; A9520; J2250; J1720; J2405; J0690; J2001 ×2; J3010; J2704; J1170; J1644; 88307; 88341; 88342

== ENCOUNTER 2023-01-25 08:44 | Day surgery (SDC) | payer MEDICARE ==
[2023-01-19 08:32] VITALS: BMI 24.0
[~2023-01-25 08:44] MED LIST changes: -ACETAMINOPHEN TAB 500 MG TAB PO PRN; -HEPARIN SODIUM,PORCINE/PF 5,000 UNIT/0.5 ML SYRINGE SQ PRN
[2023-01-25] MEDS ORDERED: fentaNYL (PF) 50 MCG/ML 2 ML AMP IV PRN (08:57)
[2023-01-25] MEDS ORDERED: ONDANSETRON 4 MG/2 ML VIAL IVP ONE (08:57)
[2023-01-25] MEDS ORDERED: LACTATED RINGERS 1,000 ML IV SCH (08:57)
[2023-01-25 09:32] LABS: Glucose,Whole Blood 83 mg/dL (70-110)
--- NOTE | 2023-01-25 10:24 | P.GSHP ---
History of Present Illness H&P Date: 01/25/23 Chief Complaint: Right breast cancer 72-year-old female recently diagnosed with right-sided breast cancer. Underwent lumpectomy demonstrating grade 3 triple negative right breast cancer with a positive sentinel lymph node. Patient will be starting adjuvant chemotherapy later this week. Here today for Port-A-Cath placement. Past Medical History Past Medical History: Cancer, COPD, Eye Disorder, Hyperlipidemia Additional Past Medical History / Comment(s): Bronchitis, bilateral eyes with increased intraocular pressure-not glaucoma yet, past hx neuralgia R side forehead, right sided breast cancer History of Any Multi-Drug Resistant Organisms: None Reported Past Surgical History: Breast Surgery, Hernia Repair, Orthopedic Surgery Additional Past Surgical History / Comment(s): Bilateral carpal tunnel, bilateral cataract removal with lens, bronchoscopy, R inguinal hernia repair, colonoscopy, benign L breast biopsy. RT BREAST BIOSPY, Rt breast lumpectomy Past Anesthesia/Blood Transfusion Reactions: No Reported Reaction Past Psychological History: No Psychological Hx Reported Smoking Status: Former smoker Past Alcohol Use History: None Reported Additional Past Alcohol Use History / Comment(s): Pt started smoking in 1978 and quit in 2009. Past Drug Use History: None Reported - Past Family History Father Family Medical History: COPD Additional Family Medical History / Comment(s): Father in his 50s of COPD. He was a smoker. Mother Family Medical History: CVA/TIA, Hypertension, Pneumonia Additional Family Medical History / Comment(s): Mother fell at age 85 and fractured her hip. Post op she became HTN and had a stroke and then ended up with pneumonia and . Medications and Allergies Home Medications Medication Instructions Recorded Confirmed Type Bimatoprost [Lumigan 0.01% Ophth 1 drop BOTH EYES HS 10/13/17 01/25/23 History Soln] Mometasone/Formoterol [Dulera 200 2 puff INHALATION RT-BID 10/13/17 01/25/23 History Mcg-5 Mcg Inhaler] Tiotropium [place] [Spiriva] 1 cap INHALATION RT-DAILY 10/13/17 01/25/23 History Atorvastatin [Lipitor] 10 mg PO W/SUPPER 03/19/21 01/25/23 History predniSONE 5 mg PO DAILY 07/12/21 01/25/23 History guaiFENesin [Mucinex] 600 mg PO Q12H PRN 10/14/22 01/25/23 History Omeprazole 20 mg PO DAILY 12/18/22 01/25/23 History levoFLOXacin 500 mg PO DAILY 01/19/23 01/25/23 History Allergies Allergy/AdvReac Type Severity Reaction Status Date / Time budesonide [From Symbicort] AdvReac ANXIETY Verified 01/25/23 09:14 formoterol [From Symbicort] AdvReac ANXIETY Verified 01/25/23 09:14 zolpidem [From Ambien] AdvReac Hallucinati Verified 01/25/23 09:14 ons Surgical - Exam Vital Signs Temp Pulse Resp BP Pulse Ox 98.3 F 88 18 156/72 96 01/25/23 09:11 01/25/23 09:11 01/25/23 09:11 01/25/23 09:11 01/25/23 09:11 Physical exam: General: Well-developed, well-nourished HEENT: Normocephalic, sclerae nonicteric Abdomen: Nontender, nondistended Extremities: No edema Neuro: Alert and oriented Assessment and Plan (1) Breast cancer, right Narrative/Plan: Will proceed with Port-A-Cath placement at this time. Risks of bleeding, infection, DVT, pneumothorax, catheter malfunction, anesthesia related complications were discussed. The patient understands and wishes to proceed. Current Visit: No Status: Acute Code(s): C50.911 - MALIGNANT NEOPLASM OF UNSP SITE OF RIGHT FEMALE BREAST SNOMED Code(s): 463443065
[2023-01-25] MEDS ORDERED: MIDAZOLAM 2 MG/2 ML VIAL ONE (10:32)
[2023-01-25] MEDS ORDERED: PROPOFOL 10 MG/ML 20 ML VIAL IV ONE (10:32)
[2023-01-25] MEDS ORDERED: LIDOCAINE 2% INJ 20 MG/ML (2 ML VIAL) ONE (10:32)
[2023-01-25] MEDS ORDERED: fentaNYL (PF) 50 MCG/ML 2 ML AMP ONE (10:32)
[2023-01-25] MEDS ORDERED: LIDOCAINE 1% INJ 10MG/ML (20 ML MDV) SQ ONE ×2 (10:46→11:13)
[2023-01-25] MEDS ORDERED: HYDROcodone/APAP 5-325MG 1 EACH TAB PO PRN (11:26)
[2023-01-25] MEDS ORDERED: traMADol 50 MG TAB PO PRN (11:26)
[2023-01-25] MEDS ORDERED: NALOXONE 0.4 MG/ML 1 ML VIAL IV PRN (11:26)
[2023-01-25] MEDS ORDERED: ACETAMINOPHEN TAB 325 MG TAB PO PRN (11:26)
[2023-01-25 11:29] VITALS: TEMP 97.8
--- NOTE | 2023-01-25 11:30 | P.OP ---
Date of Procedure: 01/25/23 Procedure(s) Performed: PREOPERATIVE DIAGNOSIS: Right breast cancer POSTOPERATIVE DIAGNOSIS: Same PROCEDURE: Port-A-Cath placement with fluoroscopic and ultrasound guidance SURGEON: Akosua EBL: Minimal ANESTHESIA: Sedation COMPLICATIONS: None OPERATIVE PROCEDURE: Patient was brought and placed on the operative table in the supine position. The patient was sedated per anesthesia that time. The chest and neck were prepped and draped in usual sterile fashion. The ultrasound probe was used to identify the location of the left internal jugular vein. The skin was localized with lidocaine. The Seldinger needle was advanced into the IJ under ultrasound guidance. The wire was advanced through the needle under fluoroscopic guidance into the superior vena cava. A port pocket was created in the left infraclavicular location. The catheter was tunneled from the wire entrance site to the port pocket. The port was then connected to the catheter. The dilator introducer was threaded over the guidewire. The guidewire and dilator were then removed. The catheter was advanced through the introducer and introducer was then removed. The tip was seen to be in the right atrial junction via fluoroscopy. A picture of the radiograph showing the tip at the radial digital junction was taken. Port was flushed with both saline and a Hep- Lock solution. There was good flow both in and out of the port. The port was sutured in underlying tissues using 3-0 silk sutures. The subcutaneous tissues were reapproximated using 3-0 Vicryl sutures and the skin at both locations using 4-0 Monocryl sutures. Skin glue and sterile dressings then applied. DISPOSITION: Stable to recovery room
[2023-01-25 12:09] VITALS: RESP 16
--- NOTE | 2023-01-25 12:17 | XR ---
EXAMINATION TYPE: XR chest 1V confirm line [facility] DATE OF EXAM: 01/25/2023 COMPARISON: 07/12/2021 HISTORY: Post Port-A-Cath insertion TECHNIQUE: Single frontal view of the chest is obtained. FINDINGS: There is a Mediport catheter. There is no consolidation. Diffuse osteopenia. The heart siz e is normal. There are surgical clips along the right chest. Subsegmental linear changes lung bases. Hyperinflation is suggestive of COPD. IMPRESSION: 1. COPD. No definite focal pneumonia.
[2023-01-25 13:32] VITALS: BP 165/89; PULSE 72
--- NOTE | 2023-01-25 16:17 | FL ---
Intraoperative/procedural fluoroscopic services were provided. Total fluoroscopy time is 25 seconds w ith a total of 3 submitted images to PACS. Please see the operative/procedural note for further detai ls. DAP: [id number] [id number]
== END 2023-01-25 13:46 | disposition home or self-care (01) ==
LOC: OR 08:44
PROVIDERS: ATTEND Surgery
DX: C50.911 Malignant neoplasm of unspecified site of right female breast (principal); J44.9 Chronic obstructive pulmonary disease, unspecified; E78.5 Hyperlipidemia, unspecified; Z17.1 Estrogen receptor negative status [ER-]; Z85.3 Personal history of malignant neoplasm of breast; Z87.891 Personal history of nicotine dependence; Z83.3 Family history of diabetes mellitus; Z82.49 Family history of ischemic heart disease and other diseases of the circulatory system; Z79.51 Long term (current) use of inhaled steroids; Z79.52 Long term (current) use of systemic steroids; Z79.899 Other long term (current) drug therapy
CPT/HCPCS: 77001; 36561; C1788; J2250; J2405; J2001 ×2; J3010; J1642; J2704

== ENCOUNTER 2023-02-04 05:06 | Inpatient (IN) | payer MEDICARE ==
[2023-02-04 05:10] LABS: Glucose,Whole Blood 97 mg/dL (70-110)
[2023-02-04] MEDS ORDERED: SODIUM CHLORIDE 0.9% 500 ML 500 ML IV STA (05:29)
[2023-02-04] MEDS: SODIUM CHLORIDE 0.9% 500 ML 500 ML IV STA ×2 (05:30→05:33)
--- NOTE | 2023-02-04 05:30 | ED ---
Weakness HPI - General Source: patient, EMS, RN notes reviewed, old records reviewed Mode of arrival: EMS Limitations: no limitations - History of Present Illness MD Complaint: generalized weakness, lack of energy -: days(s) Location: generalized Severity: severe Severity scale (1-10): 8 Consistency: constant Improves with: none Worsens with: none Context: recent illness, history of similar Associated Symptoms: nausea/vomiting <Jacob Abdi - Last Filed: 02/04/23 05:41> <Bucky Perez - Last Filed: 02/04/23 08:29> - General Chief complaint: Fall Stated complaint: SYNCOPE Time Seen by Provider: 02/04/23 05:07 - History of Present Illness Initial comments: This is a 72-year-old female DF for evaluation today. Patient presents today for evaluation of severe weakness lightheadedness dizziness multiple falls dizziness and near syncopal feelings. Patient has no chest pain or shortness of breath currently but has been persistently weak with diarrhea throughout the day. (Jacob Abdi) - Related Data Home Medications Medication Instructions Recorded Confirmed Bimatoprost [Lumigan 0.01% Ophth 1 drop BOTH EYES HS 10/13/17 01/25/23 Soln] Mometasone/Formoterol [Dulera 200 2 puff INHALATION RT-BID 10/13/17 01/25/23 Mcg-5 Mcg Inhaler] Tiotropium [place] [Spiriva] 1 cap INHALATION RT-DAILY 10/13/17 01/25/23 Atorvastatin [Lipitor] 10 mg PO W/SUPPER 03/19/21 01/25/23 predniSONE 5 mg PO DAILY 07/12/21 01/25/23 guaiFENesin [Mucinex] 600 mg PO Q12H PRN 10/14/22 01/25/23 Omeprazole 20 mg PO DAILY 12/18/22 01/25/23 levoFLOXacin 500 mg PO DAILY 01/19/23 01/25/23 Previous Rx's Medication Instructions Recorded traMADol HCl [Ultram] 50 mg PO Q6H PRN #6 tab 01/25/23 Allergies Allergy/AdvReac Type Severity Reaction Status Date / Time budesonide [From Symbicort] AdvReac ANXIETY Verified 01/28/23 09:53 formoterol [From Symbicort] AdvReac ANXIETY Verified 01/28/23 09:53 zolpidem [From Ambien] AdvReac Hallucinati Verified 01/28/23 09:53 ons Review of Systems ROS Other: All systems not noted in ROS Statement are negative. <JinJacob B - Last Filed: 02/04/23 05:41> ROS Other: All systems not noted in ROS Statement are negative. <Bucky Perez Fidencio - Last Filed: 02/04/23 08:29> ROS Statement: Those systems with pertinent positive or pertinent negative responses have been documented in the HPI. Past Medical History Past Medical History: COPD, Eye Disorder, Hyperlipidemia Additional Past Medical History / Comment(s): Bronchitis, bilateral eyes with increased intraocular pressure-not glaucoma yet, neuralgia R side forhead in past,daily steroid, FOOD GETS STUCK IN THROAT, BLOATING History of Any Multi-Drug Resistant Organisms: None Reported Past Surgical History: Breast Surgery, Hernia Repair, Orthopedic Surgery Additional Past Surgical History / Comment(s): Bilateral carpal tunnel; bilateral cataract removal with lens, bronchoscopy, R inguinal hernia repair, colonoscopy, benign L breast biopsy. RT BREAST BIOSPY, Past Anesthesia/Blood Transfusion Reactions: No Reported Reaction Past Psychological History: No Psychological Hx Reported Smoking Status: Former smoker - Past Family History Father Family Medical History: COPD Additional Family Medical History / Comment(s): Father in his 50s of COPD. He was a smoker. Mother Family Medical History: CVA/TIA, Hypertension, Pneumonia Additional Family Medical History / Comment(s): Mother fell at age 85 and fr actured her hip. Post op she became HTN and had a stroke and then ended up with pneumonia and . <Jacob Abdi - Last Filed: 02/04/23 05:41> General Exam Limitations: no limitations General appearance: alert, in no apparent distress, anxious, lethargic, in distress Head exam: Present: atraumatic, normocephalic, normal inspection Eye exam: Present: normal appearance, PERRL, EOMI. Absent: scleral icterus, conjunctival injection, periorbital swelling ENT exam: Present: normal exam, mucous membranes dry Neck exam: Present: normal inspection. Absent: tenderness, meningismus, lymphadenopathy Respiratory exam: Present: normal lung sounds bilaterally. Absent: respiratory distress, wheezes, rales, rhonchi, stridor Cardiovascular Exam: Present: regular rate, normal rhythm, normal heart sounds. Absent: systolic murmur, diastolic murmur, rubs, gallop, clicks GI/Abdominal exam: Present: soft, normal bowel sounds. Absent: distended, tenderness, guarding, rebound, rigid Extremities exam: Present: normal inspection, full ROM, normal capillary refill. Absent: tenderness, pedal edema, joint swelling, calf tenderness Back exam: Present: normal inspection Neurological exam: Present: alert, oriented X3, CN II-XII intact Psychiatric exam: Present: normal affect, normal mood Skin exam: Present: warm, dry, intact, normal color. Absent: rash <Jacob Abdi - Last Filed: 02/04/23 05:41> Course Vital Signs 02/04/23 02/04/23 02/04/23 05:08 06:28 07:31 Temperature 98.8 F Pulse Rate 103 H 98 105 H Respiratory 20 18 20 Rate Blood Pressure 122/67 118/66 O2 Sat by Pulse 98 94 L Oximetry 02/04/23 02/04/23 07:45 07:47 Temperature Pulse Rate 107 H 113 H Respiratory 24 Rate Blood Pressure O2 Sat by Pulse 96 Oximetry EKG Findings - EKG Comments: EKG Findings:: EKG is sinus tachycardia 106 ND 159 QRS 179 QTC 370 <Jacob Abdi - Last Filed: 02/04/23 05:41> Medical Decision Making - Lab Data Result diagrams: 02/04/23 05:48 02/04/23 05:48 <Bucky Perez - Last Filed: 02/04/23 08:29> - Medical Decision Making Was pt. sent in by a medical professional or institution (, PA, DRYWALL HANGER, urgent care, hospital, or fci...) When possible be specific @ -No Did you speak to anyone other than the patient for history (EMS, parent, family, police, friend...)? What history was obtained from this source @ -No Did you review nursing and triage notes (agree or disagree)? Why? @ -I reviewed and agree with nursing and triage notes Were old charts reviewed (outside hosp., previous admission, EMS record, old EKG, old radiological studies, urgent care reports/EKG's, fci records)? Report findings @ -No old charts were reviewed Differential Diagnosis (chest pain, altered mental status, abdominal pain women, abdominal pain men, vaginal bleeding, weakness, fever, dyspnea, syncope, headache, dizziness, GI bleed, back pain, seizure, CVA, palpatations, mental health, musculoskeletal)? @ Differential Weakness: Hypoglycemia, shock, sepsis, hyponatremia, anemia, infection, ID, ETOH, adverse medicine reaction, overdose, stroke, this is not meant to be an all-inclusive list. EKG interpreted by me (3pts min.). @ -As above X-rays interpreted by me (1pt min.). @ -None done CT interpreted by me (1pt min.). @ -CT brain, negative for intracranial hemorrhage or mass effect, CT and she agreed with the chest negative for pulmonary embolism, CT of the abdomen and pelvis with contrast showing a distended urinary bladder, and enteritis versus ileus. U/S interpreted by me (1pt. min.). @ -None done What testing was considered but not performed or refused? (CT, X-rays, U/S, labs)? Why? @ -None What meds were considered but not given or refused? Why? @ -None Did you discuss the management of the patient with other professionals (professionals i.e. , PA, DRYWALL HANGER, lab, RT, psych nurse, social services counselor, mental hygiene consultant, teacher, ammunition officer, case management assistant)? Give summary @ -Is discussed with Dr. Nolen will admit Was smoking cessation discussed for >3mins.? @ -No Was critical care preformed (if so, how long)? @ -No Were there social determinants of health that impacted care today? How? (Homelessness, low income, unemployed, alcoholism, drug addiction, transportat ion, low edu. Level, literacy, decrease access to med. care, retirement, rehab)? @ -No Was there de-escalation of care discussed even if they declined (Discuss DNR or withdrawal of care, Hospice)? DNR status @ -No What co-morbidities impacted this encounter? (DM, HTN, Smoking, COPD, CAD, Cancer, CVA, ARF, Chemo, Hep., AIDS, mental health diagnosis, sleep apnea, morbid obesity)? @ -[Breast cancer, current chemotherapy Was patient admitted / discharged? Hospital course, mention meds given and route, prescriptions, significant lab abnormalities, going to OR and other pertinent info. @ -[6 is a 72-year-old female whose care was signed out at shift change awaiting CT imaging and laboratory testing. Patient had initially presented with generalized weakness, multiple falls and diarrhea. She is currently undergoing chemotherapy and received chemotherapy one week prior. She is neutropenic on laboratory testing with a total white count of 600. She has stable hemoglobin and from cytopenia. Normal electrolytes, urinalysis is pending. Imaging of the brain for headache injury related to her falls is negative for intracranial hemorrhage or mass effect. Patient is moderately dyspneic with wheezing throughout and there was concern for pulmonary embolism given her cancer diagnoses, this is negative for pulmonary embolism. CT the abdomen does show ileus and enteritis type picture. Patient will be admitted for hydration, treatment of COPD and generalized weakness. Undiagnosed new problem with uncertain prognosis? @ -No Drug Therapy requiring intensive monitoring for toxicity (Heparin, Nitro, Insulin, Cardizem)? @ -No Were any procedures done? @ -No Diagnosis/symptom? @ Neutropenia, dehydration, COPD Acute, or Chronic, or Acute on Chronic? @acute Uncomplicated (without systemic symptoms) or Complicated (systemic symptoms)? @ -[Complicated. Side effects of treatment? @ -No Exacerbation, Progression, or Severe Exacerbation? @ -No Poses a threat to life or bodily function? How? (Chest pain, USA, ID, pneumonia, PE, COPD, DKA, ARF, appy, cholecystitis, CVA, Diverticulitis, Homicidal, Suicidal, threat to staff... and all critical care pts) @ -[Yes, cancer, COPD (Bucky Perez) - Lab Data Lab Results 02/04/23 02/04/23 02/04/23 Range/Units 05:09 05:48 05:48 WBC (3.8-10.6) k/uL RBC (3.80-5.40) m/uL Hgb (11.4-16.0) gm/dL Hct (34.0-46.0) % MCV (80.0-100.0) fL MCH (25.0-35.0) pg MCHC (31.0-37.0) g/dL RDW (11.5-15.5) % Plt Count (150-450) k/uL MPV Sodium 133 L (137-145) mmol/L Potassium 4.2 (3.5-5.1) mmol/L Chloride 101 (98-107) mmol/L Carbon Dioxide 31 H (22-30) mmol/L Anion Gap 1 mmol/L BUN 20 H (7-17) mg/dL Creatinine 0.86 (0.52-1.04) mg/dL Est GFR (CKD-EPI)AfAm 79 (>60 ml/min/1.73 sqM) Est GFR (CKD-EPI)NonAf 68 (>60 ml/min/1.73 sqM) Glucose 94 (74-99) mg/dL POC Glucose (mg/dL) 97 (70-110) mg/dL POC Glu Lead Sql Developer ID Katerine Fagan Plasma Lactic Acid Jer 0.9 (0.7-2.0) mmol/L Calcium 8.6 (8.4-10.2) mg/dL Phosphorus 2.9 (2.5-4.5) mg/dL Magnesium 2.0 (1.6-2.3) mg/dL Total Bilirubin 0.9 (0.2-1.3) mg/dL AST 22 (14-36) U/L ALT 18 (4-34) U/L Alkaline Phosphatase 78 (38-126) U/L Troponin I (0.000-0.034) ng/mL NT-Pro-B Natriuret Pep 235 pg/mL Total Protein 5.7 L (6.3-8.2) g/dL Albumin 3.3 L (3.5-5.0) g/dL 02/04/23 02/04/23 Range/Units 05:48 05:48 WBC 0.6 L* (3.8-10.6) k/uL RBC 4.36 (3.80-5.40) m/uL Hgb 13.1 (11.4-16.0) gm/dL Hct 40.6 (34.0-46.0) % MCV 93.2 (80.0-100.0) fL MCH 30.2 (25.0-35.0) pg MCHC 32.4 (31.0-37.0) g/dL RDW 12.8 (11.5-15.5) % Plt Count 96 L D (150-450) k/uL MPV 8.1 Sodium (137-145) mmol/L Potassium (3.5-5.1) mmol/L Chloride (98-107) mmol/L Carbon Dioxide (22-30) mmol/L Anion Gap mmol/L BUN (7-17) mg/dL Creatinine (0.52-1.04) mg/dL Est GFR (CKD-EPI)AfAm (>60 ml/min/1.73 sqM) Est GFR (CKD-EPI)NonAf (>60 ml/min/1.73 sqM) Glucose (74-99) mg/dL POC Glucose (mg/dL) (70-110) mg/dL POC Glu Lead Sql Developer ID Plasma Lactic Acid Jer (0.7-2.0) mmol/L Calcium (8.4-10.2) mg/dL Phosphorus (2.5-4.5) mg/dL Magnesium (1.6-2.3) mg/dL Total Bilirubin (0.2-1.3) mg/dL AST (14-36) U/L ALT (4-34) U/L Alkaline Phosphatase (38-126) U/L Troponin I <0.012 (0.000-0.034) ng/mL NT-Pro-B Natriuret Pep pg/mL Total Protein (6.3-8.2) g/dL Albumin (3.5-5.0) g/dL Disposition <Jacob Abdi B - Last Filed: 02/04/23 05:41> Is patient prescribed a controlled substance at d/c from ED?: No Time of Disposition: 08:29 <Bucky Perez - Last Filed: 02/04/23 08:29> Clinical Impression: Weakness, Dehydration, COPD (chronic obstructive pulmonary disease), Neutropenia, Breast cancer Disposition: ADMITTED IP TO THIS HOSP Condition: Stable Referrals: Jluis Mohan DO [Primary Care Provider] - 1-2 days
[2023-02-04] MEDS: SODIUM CHLORIDE 0.9% 1,000 ML IV SCH ×3 (05:34→22:17)
[2023-02-04 06:12] LABS: ALT 18 U/L (4-34); AST 22 U/L (14-36); African American GFR (CKD) 79 (>60 ml/min/1.73 sqM); Albumin 3.3 g/dL (3.5-5.0); Alkaline Phosphatase 78 U/L (38-126); Anion Gap 1 mmol/L; Blood Urea Nitrogen 20 mg/dL (7-17); Calcium 8.6 mg/dL (8.4-10.2); Carbon Dioxide 31 mmol/L (22-30); Chloride 101 mmol/L (98-107); Glucose 94 mg/dL (74-99); Non-African American GFR(CKD) 68 (>60 ml/min/1.73 sqM); Phosphorus 2.9 mg/dL (2.5-4.5); Potassium 4.2 mmol/L (3.5-5.1); Sodium 133 mmol/L (137-145); Total Bilirubin 0.9 mg/dL (0.2-1.3); Total Protein 5.7 g/dL (6.3-8.2)
[2023-02-04 06:15] LABS: HCT 40.6 % (34.0-46.0); HGB 13.1 gm/dL (11.4-16.0); MCH 30.2 pg (25.0-35.0); MCHC 32.4 g/dL (31.0-37.0); MCV 93.2 fL (80.0-100.0); Mean Platelet Volume 8.1; RBC 4.36 m/uL (3.80-5.40); RDW 12.8 % (11.5-15.5)
[2023-02-04 06:20] LABS: NT-Pro-B-Type Natriuretic Pept 235 pg/mL
[2023-02-04] MEDS ORDERED: IPRATROPIUM-ALBUTEROL 3 ML NEB INHALATION STA (07:01)
[2023-02-04 07:13] LABS: WBC 0.6 k/uL (3.8-10.6)
--- NOTE | 2023-02-04 07:41 | CT ---
EXAMINATION TYPE: CT brain wo con DATE OF EXAM: 02/04/2023 COMPARISON: 10/13/2017 HISTORY: 72-year-old female with pain after fall, dizziness TECHNIQUE: Examination was done in axial plane without intravenous contrast. Coronal and sagittal r econstructions performed. CT DLP: 1110.4 mGycm Automated exposure control for dose reduction was used. FINDINGS: There is no evidence of acute intracranial hemorrhage, acute ischemic changes, mass, mass-effect, or extra-axial fluid collection. There is no effacement of cerebral sulci or basal subarachnoid cister ns. Similar mild ventricular prominence likely due to central cerebral atrophy. Huber's ratio calculat ed at 0.33. Moderate confluent white matter hypodense lesions in both cerebral hemispheres redemonstr ated. There is no midline shift. [place]-white matter distinction is preserved. Leftward nasal septal deviation. Trace mucosal thickening ethmoid air cells. Mastoid air cells are we ll pneumatized. Orbits and globes are intact. IMPRESSION: Similar mild central cerebral atrophy and moderate burden of chronic small vessel ischemic disease. N o acute intracranial abnormality seen.
--- NOTE | 2023-02-04 07:45 | CT ---
EXAMINATION TYPE: CT angio chest DATE OF EXAM: 02/04/2023 COMPARISON: 02/08/2018 HISTORY: 72-year-old female fall, trauma, shortness of breath, PE TECHNIQUE: Contiguous axial scanning of the chest performed with IV Contrast, patient injected with 1 00 mL of Isovue 370. Coronal/sagittal MIP reconstructions performed. CT DLP: 271.5 mGycm Automated exposure control for dose reduction was used. FINDINGS: Suspect prior postsurgical and posttreatment change of the right breast. Additional surgical clips ri ght axilla. Heart normal size without pericardial effusion. No flattening of the interventricular septum or reflu x of contrast into the hepatic veins. Borderline ectatic ascending aorta 3.5 cm. Bovine configuration to the aortic arch. Left anterior chest wall injection port with catheter tip at the lower SVC. Satisfactory opacification of the pulmonary arterial system without evidence for pulmonary embolus. No progressive lymphadenopathy by CT size criteria. Mild diffuse bronchial wall thickening. Mild emphysematous change. Some strandy scarring or atelectas is in the lower lungs. No consolidation or pleural effusion. Abdomen and pelvis reported separately. Bones: Mild to moderate degenerative disc disease and anterior endplate spondylosis mid to lower thor acic spine. IMPRESSION: 1. NO EVIDENCE FOR PULMONARY EMBOLUS. 2. COPD WITH MILD EMPHYSEMA. NO ACUTE PROCESS SEEN.
--- NOTE | 2023-02-04 07:54 | CT ---
EXAMINATION TYPE: CT abdomen pelvis w con DATE OF EXAM: 02/04/2023 COMPARISON: Pelvis 12/18/2018 HISTORY: 72-year-old female with abdominal pain after fall, trauma TECHNIQUE: Contiguous axial scanning of the abdomen and pelvis following administration of 100 ml Iso dawson 300 IV contrast. Delayed images through the kidneys and coronal/sagittal reconstructions perform ed. CT DLP: 751.7 mGycm Automated exposure control for dose reduction was used. FINDINGS: Chest reported separately. 2.0 cm left hepatic dome cyst. No other focal liver lesion. Portal venous system is patent. No biliar y ductal dilatation. No abnormal gallbladder distention. Adrenal glands, spleen, and pancreas within normal limits. Centrally located cyst right kidney measuring 1.6 cm and partially exophytic lateral cyst left kidney measuring 3.5 cm. Symmetric uptake and excretion of contrast from both kidneys. Moderate atherosclerotic calcification infrarenal abdominal aorta. A few prominent but nondilated small bowel loops are present and are nonspecific measuring up to 2.4 cm in caliber. No free fluid or free air. No mesenteric or retroperitoneal lymphadenopathy. Scattered mild to moderate stool burden. Minimal sigmoid diverticulosis. No pericolonic inflammatory change seen. Prominent distention of the urinary bladder, distended up to 14 cm craniocaudal. Uterus is anteverted. Probable left fundal fibroid measuring 2.8 cm was present on 12/18/2018 as well. Ovaries are not well delineated from adjacent clustered bowel loops. No abnormal fluid collection in the pelvis or pelvic lymphadenopathy. Bones: Moderate degenerative change of the left greater than right hips. Suggestion of some subcutane ous soft tissue bruising along the lateral aspect of the upper left thigh and left hip. Moderate spon dylotic change mid to lower lumbar spine. No acute fracture seen. IMPRESSION: 1. PROMINENT DISTENTION OF THE URINARY BLADDER UP TO 14 CM CRANIOCAUDAL. PLEASE CORRELATE CLINICALLY TO EXCLUDE URINARY RETENTION. 2. A FEW PROMINENT BUT NONDILATED SMALL BOWEL LOOPS THROUGHOUT THE ABDOMEN ARE NONSPECIFIC AND COULD BE TRANSIENT OR COULD REPRESENT A MILD ILEUS OR ENTERITIS. 3. MINIMAL SIGMOID DIVERTICULOSIS WITHOUT ACUTE DIVERTICULITIS. 4. THE APPEARANCE OF SOME SUBCUTANEOUS SOFT TISSUE BRUISING ALONG THE LATERAL ASPECT OF THE LEFT HIP AND UPPER LEFT THIGH.
[2023-02-04] MEDS ORDERED: NON FORMULARY DRUG (Tiotropium Bromide [Spiriva] 18 MCG Cap.W.Dev) INHALATION SCH (08:00)
[2023-02-04] MEDS ORDERED: NALOXONE 0.4 MG/ML 1 ML VIAL IV PRN (08:23)
[2023-02-04] MEDS ORDERED: ONDANSETRON 4 MG/2 ML VIAL IVP PRN (08:23)
[2023-02-04 10:27] LABS: RBC Morphology Normal
[2023-02-04 10:28] LABS: Platelet Count 96 k/uL (150-450)
[2023-02-04 10:38] LABS: Prothrombin Time 10.4 sec (9.0-12.0)
[2023-02-04] MEDS ORDERED: ONDANSETRON ODT 4 MG TAB PO PRN (11:10)
[2023-02-04] MEDS: PANTOPRAZOLE 40 MG TABLET PO SCH (11:46)
[2023-02-04] MEDS: ACETAMINOPHEN TAB 325 MG TAB PO PRN ×2 (11:46→19:52)
[2023-02-04] MEDS ORDERED: VANCOMYCIN IV PER PHARMACY 1 EACH MISC MISCELLANE PRN (12:30)
[2023-02-04] MEDS: MAG HYDROX/AL HYDROX/SIMETH 30 ML, diphenhydrAMINE ELIXIR 75 MG, LIDOCAINE VISCOUS 2% 3... PO SCH ×9 (12:48→21:36)
[2023-02-04 13:11] LABS: Appearance,Urine Clear (Clear); Bilirubin,Urine Negative (Negative); Blood,Urine Negative (Negative); Color,Urine Colorless; Glucose,Urine (UA) Negative (Negative); Ketones,Urine Negative (Negative); Leukocyte Esterase,Urine Negative (Negative); Nitrite,Urine Negative (Negative); PH, Urine 7.5 (5.0-8.0); Protein,Urine Negative (Negative); Specific Gravity,Urine 1.036 (1.001-1.035); Urobilinogen,Urine <2.0 mg/dL (<2.0)
[2023-02-04] MEDS: IPRATROPIUM-ALBUTEROL 3 ML NEB INHALATION SCH ×3 (13:31→21:15)
[2023-02-04] MEDS ORDERED: VANCOMYCIN 1,250 MG in SODIUM CHLORIDE 0.9% 250 ML IVPB ONE (14:00)
--- NOTE | 2023-02-04 14:08 | P.HPIM ---
History of Present Illness H&P Date: 02/04/23 Chief Complaint: Tired Very pleasant 72-year-old patient, follows with Dr. Mohan. Power Lineman Dr. Parker. Oncologist Dr. Garber. Patient has been diagnosed with breast cancer. Stage I. Triple negative. Posterior lymph nodes. Received her first chemotherapy. Patient thereafter started feeling increasingly tired. The point she fell down yesterday. Has been having diarrhea. A few a day. No blood. No abdominal pain. Has been feeling cold. Did spike a fever in the ER. Decreased appetite. Tired rundown. Had a baseline patient does have a congested cough. Patient has noted urine increased urinary frequency. Has been a bit more short of breath right now. Review of systems: GEN.: Tired fever EYES: None HEENT: None NECK: None RESPIRATORY: As above CARDIOVASCULAR: None GASTROINTESTINAL: As above GENITOURINARY: Urinary frequency MUSCULOSKELETAL: None LYMPHATICS: None HEMATOLOGICAL: None PSYCHIATRY: None NEUROLOGICAL: None Past medical history to include: COPD, hyperlipidemia, breast cancer triple negative currently undergoing treatment Social history: Lives alone. Stop smoking around 1999. Smoked for about 31 years. No alcohol Physical examination: VITAL SIGNS: 101.6, 122, 20, 151/71, 94% room air GENERAL: BMI 24.4, reclining in bed, awake, but short of breath, congested cough EYES: Pupils equal. Conjunctiva normal. HEENT: External appearance of nose and ears normal, oral cavity white spots in the r pharynx. NECK: JVD not raised; masses not palpable. HEART: First and second heart sounds are normal; no edema. LUNGS:[ Respiratory rate increased, diminished breath sounds ABDOMEN: Soft, nontender, liver spleen not palpable, no masses palpable. PSYCH: [Alert and oriented x3; mood and affect slightly anxious. MUSCULOSKELETAL:No Clubbing/cyanosis;muscles-grossly intact. Evidence of OA NEUROLOGICAL: Cranial nerves grossly intact; no facial asymmetry, power and sensation grossly intact. LYMPHATICS: No lymph nodes palpable in the axilla and neck INVESTIGATIONS, reviewed in the clinical context: February 04: White count 0.6 hemoglobin 13.1 platelets 96 sodium 133 potassium 4.2 BUN 20 creatinine 0.86 UA: Negative for nitrite leukoesterase. EKG tracing personally reviewed by me-normal sinus rhythm. Rate 106 CT brain without contrast: Mild central cerebral atrophy. Moderate burden of chronic small vessel ischemic disease. CT angiogram chest: No evidence of PE. Emphysema changes. Assessment and plan: -Sepsis picture in a patient status post first dose of chemotherapy. Patient's UA is benign. Had some more shortness breath. This could be from tumor lysis. Empirically patient started on IVs cefepime and vancomycin. Blood culture pending. -Acute COPD exacerbation in a ex-smoker: DuoNeb, nebulized steroids -Hyperlipidemia Lipitor 10 mg with supper -Breast cancer stage I, triple negative. Has received 4 dose of chemotherapy. Being followed by Dr. Garber from oncology. -Full code Care was discussed with the patient and the friends at bedside. Given the complexity and severity of patient's condition expect the patient to be in the hospital at least for 2 overnights Past Medical History Past Medical History: COPD, Eye Disorder, Hyperlipidemia Additional Past Medical History / Comment(s): Bronchitis, bilateral eyes with increased intraocular pressure-not glaucoma yet, neuralgia R side forhead in past,daily steroid, FOOD GETS STUCK IN THROAT, BLOATING History of Any Multi-Drug Resistant Organisms: None Reported Past Surgical History: Breast Surgery, Hernia Repair, Orthopedic Surgery Additional Past Surgical History / Comment(s): Bilateral carpal tunnel; bilateral cataract removal with lens, bronchoscopy, R inguinal hernia repair, colonoscopy, benign L breast biopsy. RT BREAST BIOSPY, Past Anesthesia/Blood Transfusion Reactions: No Reported Reaction Past Psychological History: No Psychological Hx Reported Smoking Status: Former smoker - Past Family History Father Family Medical History: COPD Additional Family Medical History / Comment(s): Father in his 50s of COPD. He was a smoker. Mother Family Medical History: CVA/TIA, Hypertension, Pneumonia Additional Family Medical History / Comment(s): Mother fell at age 85 and fractured her hip. Post op she became HTN and had a stroke and then ended up with pneumonia and . Medications and Allergies Home Medications Medication Instructions Recorded Confirmed Type Bimatoprost [Lumigan 0.01% Ophth 1 drop BOTH EYES HS 10/13/17 02/04/23 History Soln] Mometasone/Formoterol [Dulera 200 2 puff INHALATION RT-BID 10/13/17 02/04/23 History Mcg-5 Mcg Inhaler] Tiotropium [place] [Spiriva] 1 cap INHALATION RT-DAILY 10/13/17 02/04/23 History Atorvastatin [Lipitor] 10 mg PO W/SUPPER 03/19/21 02/04/23 History Omeprazole 20 mg PO DAILY 12/18/22 02/04/23 History Aprepitant [Emend] 80 mg PO DIRECTED 02/04/23 02/04/23 History Lido/Mdryl/Maalox 111 5 ml PO PCHS 02/04/23 02/04/23 History Lidocaine-Prilocaine Cream [Emla 1 applic TOPICAL DAILY PRN 02/04/23 02/04/23 History Cream 2.5%/2.5%] OLANZapine [ZyPREXA] 2.5 - 5 mg PO HS 02/04/23 02/04/23 History Ondansetron Odt [Zofran Odt] 4 mg PO Q4H PRN 02/04/23 02/04/23 History Allergies Allergy/AdvReac Type Severity Reaction Status Date / Time budesonide [From Symbicort] AdvReac ANXIETY Verified 02/04/23 08:51 formoterol [From Symbicort] AdvReac ANXIETY Verified 02/04/23 08:51 zolpidem [From Ambien] AdvReac Hallucinati Verified 02/04/23 08:51 ons Physical Exam Vitals: Vital Signs Temp Pulse Resp BP Pulse Ox 02/04/23 07:47 113 H 24 96 02/04/23 07:45 107 H 02/04/23 07:31 105 H 20 02/04/23 06:28 98 18 118/66 94 L 02/04/23 05:08 98.8 F 103 H 20 122/67 98 Intake and Output 02/03/23 02/04/23 02/04/23 22:59 06:59 14:59 Other: Weight 64.41 kg Results CBC & Chem 7: 02/04/23 05:48 02/04/23 05:48 Labs: Abnormal Lab Results - Last 24 Hours (Table) 02/04/23 02/04/23 02/04/23 Range/Units 05:48 05:48 09:58 WBC 0.6 L* (3.8-10.6) k/uL Plt Count 96 L D (150-450) k/uL D-Dimer 1.51 H (<0.60) mg/L FEU Sodium 133 L (137-145) mmol/L Carbon Dioxide 31 H (22-30) mmol/L BUN 20 H (7-17) mg/dL Total Protein 5.7 L (6.3-8.2) g/dL Albumin 3.3 L (3.5-5.0) g/dL
--- NOTE | 2023-02-04 14:31 | P.CNPUL ---
History of Present Illness Consult date: 02/04/23 Requesting physician: Jluis Mohan Reason for consult: dyspnea, cough, COPD Chief complaint: Weakness, diarrhea, dehydration. History of present illness: Pulmonary consult dated 02/04/2023. 72-year-old female who was seen in the emergency department, for generalized weakness, diarrhea, and dehydration. The patient apparently was seen in the emergency department, early in the morning on February 04. She came in for weakness, lightheadedness, and dizziness. Addition, she apparently was having multiple falls at home. In addition, more recently she was complaining of shortness of breath, chest congestion and cough. She does see my partner in the office for COPD. She states that her lung function is only at 30%. Nonetheless, she does not use oxygen at home. Currently, she is on room air. She seen in the emergency department,. She's getting a breathing treatment with albuterol sulfate and ipratropium bromide. Her home medications include albuterol updrafts, an albuterol inhaler, Dulera, 2 puffs twice a day, Spiriva, and prednisone 5 mg a day. She apparently also takes azithromycin, 250 mg every other day, primarily as an anti-inflammatory. White count is 0.6, heme him 13.1, hematocrit 40.6, and platelet count 96,000. The patient is undergoing chemotherapy for breast cancer. D-dimer was 1.51. Sodium 133, potassium 4.2, chlorides 101, CO2 31, UN 20, and creatinine 0.86. The rest of her metabolic profile looks relatively normal. Albumin is a bit low at 3.3. Urine is negative. Brain CT shows mild central cerebral atrophy and moderate burden of chronic small vessel ischemic disease. CT angiogram was negative for pulmonary embolism, and did show some evidence of emphysema. CT of the abdomen and pelvis showed prominent distention of the urinary bladder, prominent but nondilated small bowel loops, minimal sigmoid diverticulosis, without diverticulitis, and some soft tissue bruising along the lateral aspect of the left hip and upper left thigh. Review of Systems REVIEW OF SYSTEMS: CONSTITUTIONAL: Weakness, lack of energy.] NEUROLOGIC: Lightheadedness, dizziness, with possible syncope.] HEENT: [ Negative.] CARDIAC: [Negative.] PULMONARY: Shortness of breath, cough, chest congestion. GI: [Negative.] : [Negative.] RHEUMATOLOGIC: [ Negative.] IMMUNOLOGIC: [ Negative.] ENDOCRINE: [Negative. ] DERMATOLOGIC: [Negative.] Past Medical History Past Medical History: COPD, Eye Disorder, Hyperlipidemia Additional Past Medical History / Comment(s): Bronchitis, bilateral eyes with increased intraocular pressure-not glaucoma yet, neuralgia R side forhead in past,daily steroid, FOOD GETS STUCK IN THROAT, BLOATING History of Any Multi-Drug Resistant Organisms: None Reported Past Surgical History: Breast Surgery, Hernia Repair, Orthopedic Surgery Additional Past Surgical History / Comment(s): Bilateral carpal tunnel; bilateral cataract removal with lens, bronchoscopy, R inguinal hernia repair, colonoscopy, benign L breast biopsy. RT BREAST BIOSPY, Past Anesthesia/Blood Transfusion Reactions: No Reported Reaction Past Psychological History: No Psychological Hx Reported Smoking Status: Former smoker - Past Family History Father Family Medical History: COPD Additional Family Medical History / Comment(s): Father in his 50s of COPD. He was a smoker. Mother Family Medical History: CVA/TIA, Hypertension, Pneumonia Additional Family Medical History / Comment(s): Mother fell at age 85 and fractured her hip. Post op she became HTN and had a stroke and then ended up with pneumonia and . Medications and Allergies Home Medications Medication Instructions Recorded Confirmed Type Bimatoprost [Lumigan 0.01% Ophth 1 drop BOTH EYES HS 10/13/17 02/04/23 History Soln] Mometasone/Formoterol [Dulera 200 2 puff INHALATION RT-BID 10/13/17 02/04/23 History Mcg-5 Mcg Inhaler] Tiotropium [place] [Spiriva] 1 cap INHALATION RT-DAILY 10/13/17 02/04/23 History Atorvastatin [Lipitor] 10 mg PO W/SUPPER 03/19/21 02/04/23 History Omeprazole 20 mg PO DAILY 12/18/22 02/04/23 History Aprepitant [Emend] 80 mg PO DIRECTED 02/04/23 02/04/23 History Lido/Mdryl/Maalox 111 5 ml PO PCHS 02/04/23 02/04/23 History Lidocaine-Prilocaine Cream [Emla 1 applic TOPICAL DAILY PRN 02/04/23 02/04/23 History Cream 2.5%/2.5%] OLANZapine [ZyPREXA] 2.5 - 5 mg PO HS 02/04/23 02/04/23 History Ondansetron Odt [Zofran Odt] 4 mg PO Q4H PRN 02/04/23 02/04/23 History Allergies Allergy/AdvReac Type Severity Reaction Status Date / Time budesonide [From Symbicort] AdvReac ANXIETY Verified 02/04/23 08:51 formoterol [From Symbicort] AdvReac ANXIETY Verified 02/04/23 08:51 zolpidem [From Ambien] AdvReac Hallucinati Verified 02/04/23 08:51 ons Physical Exam Osteopathic Statement: *. No significant issues noted on an osteopathic structural exam other than those noted in the History and Physical/Consult. Vitals: Vital Signs Temp Pulse Resp BP Pulse Ox 02/04/23 13:31 104 H 16 98 02/04/23 13:13 97.7 F 112 H 18 130/67 02/04/23 11:37 101.6 F H 122 H 20 151/71 94 L 02/04/23 07:47 113 H 24 96 02/04/23 07:45 107 H 02/04/23 07:31 105 H 20 02/04/23 06:28 98 18 118/66 94 L 02/04/23 05:08 98.8 F 103 H 20 122/67 98 Intake and Output 02/03/23 02/04/23 02/04/23 22:59 06:59 14:59 Other: Weight 64.41 kg No acute distress, oriented 3. Currently on room air. No respiratory distress. No use of accessory muscles or conversational dyspnea. HEENT examination is grossly unremarkable. Neck supple. Full range of motion. No adenopathy thyromegaly or neck vein distention. Cardiovascular examination reveals regular rhythm rate. S1-S2 normal. No S3 or S4. No discernible murmur noted. Heart rate 104 bpm. Lungs reveal scattered rhonchi and expiratory wheezes. Breath sounds are equal bilaterally. No crackles. Room air saturation between 94 and 98%. Abdomen soft bowel sounds are heard. No masses or tenderness. Extremities are intact. No cyanosis clubbing or edema. Skin is without rash or lesion. Neurologic examination is brief but nonfocal. Results - Laboratory Findings CBC and BMP: 02/04/23 05:48 02/04/23 05:48 PT/INR, D-dimer PT 10.4 sec (9.0-12.0) 02/04/23 09:58 INR 1.0 (<1.2) 02/04/23 09:58 D-Dimer 1.51 mg/L FEU (<0.60) H 02/04/23 09:58 Abnormal lab findings: Abnormal Labs 02/04/23 02/04/23 02/04/23 05:48 05:48 09:58 WBC 0.6 L* Plt Count 96 L D D-Dimer 1.51 H Sodium 133 L Carbon Dioxide 31 H BUN 20 H Total Protein 5.7 L Albumin 3.3 L Ur Specific [place] 02/04/23 12:52 WBC Plt Count D-Dimer Sodium Carbon Dioxide BUN Total Protein Albumin Ur Specific [place] 1.036 H - Diagnostic Findings Chest x-ray: image reviewed CT scan - chest: image reviewed Assessment and Plan Assessment: Weakness, dehydration, dizziness, lightheadedness, and frequent falls, likely related to recent chemotherapy for breast cancer. Severe COPD, with an FEV1, that is 30% of predicted, mildly active at this time. History of hyperlipidemia. History of breast cancer, currently undergoing chemotherapy. Gastroesophageal reflux disease. Prior history of tobacco use. Plan: Plan dated 02/04/2023. The patient is seen in the emergency department, room 5. We'll get her back on her normal breathing medications and regimen. Additional recommendations and suggestions are forthcoming. Labs, x-rays, and medications are reviewed. We will boost her dose of steroid given her history of chronic prednisone use, and the possibility of relative adrenal insufficiency. Additional recommendations and suggestions are forthcoming. Prognosis is guarded. Time with Patient: Greater than 30
[2023-02-04] MEDS: CEFEPIME 2 GM in SODIUM CHLORIDE 0.9% 100 ML IVPB SCH ×2 (14:58→22:16)
[2023-02-04] MEDS: BUDESONIDE 1 MG/2 ML NEBU INHALATION SCH ×2 (15:03→21:14)
--- NOTE | 2023-02-04 15:29 | XR ---
EXAMINATION TYPE: XR chest 2V DATE OF EXAM: 02/04/2023 COMPARISON: 01/25/2023 TECHNIQUE: PA and lateral views submitted. HISTORY: Shortness of breath FINDINGS: The lungs are clear and there is no pneumothorax, pleural effusion, or focal pneumonia. Heart size normal and no overt failure. Osseous structures demonstrate hypertrophic and degenerative changes of the spine. Mediport catheter seen with the tip overlying the SVC and there is diffuse osteopenia with bilateral shoulder arthropathy. Hyperinflation lungs noted. Surgical clips along the right axilla an d chest wall. IMPRESSION: 1. COPD and cardiomegaly. No acute infiltrate. No overt failure.
--- NOTE | 2023-02-04 16:27 | P.CONS ---
History of Present Illness - Reason for Consult Consult date: 02/04/23 neutropenia Requesting physician: Bucky Perez - Chief Complaint weakness - History of Present Illness Patient is a 72-year-old female with a history of COPD and breast cancer. She is a patient of Dr. Garber. The patient had routine mammogram performed on 09/21/22. This showed new microcalcifications that 11:00 in the anterior right breast. She underwent a stereotactic biopsy on 10/08/22. Size of the biopsy specimen was 9 mm, and showed invasive ductal carcinoma, grade 3, which was triple negative ( ER/VT negative, and HER-2/haja 0 on IHC). The patient therefore proceeded to lumpectomy with sentinel node biopsy on 12/21/22. This revealed 1.4 cm invasive ductal carcinoma, grade 3, with associated DCIS and margins negative. 05/31 lymph node was involved with 8 mm tumor deposit. She completed cycle 1 of Adriamycin and Cytoxan with neulasta on 01/28/23. patient presented to the emergency room with complaints of generalized weakness, dizziness, near-syncope and diarrhea over the last couple days. Patient reports diarrhea began progressing 2 days ago but worsened last night having 7 episodes of diarrhea. patient denies vomiting nausea and vomiting. Denies shortness of breath and cough. He reports she is experiencing sore throat and oral sores. Prior to admission patient was prescribed cool solution. Her treatment of mucositis. Patient denies fever and chills. Upon presentation CTA chest revealed no evidence for PE. COPD with mild emphysema. No acute processes seen. CT brain showed no acute intracranial abnormalities. CT abdomen and pelvis showed, in distention of the urinary bladder. A few prominent but nondilated small bowel loops throughout the abdomen are nonspecific. Minimal sigmoid diverticulosis without acute diverticulitis. UA pending. CBC revealed leukopenia with WBC 0.6. Hemoglobin 13.1 and platelets 96,000. Patient is afebrile. 98% on room air Review of Systems 10 point ROS is negative except as stated in the HPI Past Medical History Past Medical History: Cancer, COPD, Eye Disorder, Hyperlipidemia Additional Past Medical History / Comment(s): Bronchitis, bilateral eyes with increased intraocular pressure-not glaucoma yet, neuralgia R side forhead in past,daily steroid, FOOD GETS STUCK IN THROAT, BLOATING, breats cancer History of Any Multi-Drug Resistant Organisms: None Reported Past Surgical History: Breast Surgery, Hernia Repair, Orthopedic Surgery Additional Past Surgical History / Comment(s): Bilateral carpal tunnel; bilateral cataract removal with lens, bronchoscopy, R inguinal hernia repair, colonoscopy, benign L breast biopsy. RT BREAST BIOSPY, Past Anesthesia/Blood Transfusion Reactions: No Reported Reaction Past Psychological History: No Psychological Hx Reported Additional Psychological History / Comment(s): Pt resides alone in a ground floor apartment with 7 steps to get in. She works at [employer]. She drives. She has a nebulizer. Smoking Status: Former smoker Past Alcohol Use History: None Reported Additional Past Alcohol Use History / Comment(s): Pt started smoking in 1978 and quit in 2009. Past Drug Use History: None Reported - Past Family History Father Family Medical History: COPD Additional Family Medical History / Comment(s): Father in his 50s of COPD. He was a smoker. Mother Family Medical History: CVA/TIA, Hypertension, Pneumonia Additional Family Medical History / Comment(s): Mother fell at age 85 and fractured her hip. Post op she became HTN and had a stroke and then ended up with pneumonia and . Medications and Allergies Home Medications Medication Instructions Recorded Confirmed Type Bimatoprost [Lumigan 0.01% Ophth 1 drop BOTH EYES HS 10/13/17 02/04/23 History Soln] Mometasone/Formoterol [Dulera 200 2 puff INHALATION RT-BID 10/13/17 02/04/23 History Mcg-5 Mcg Inhaler] Tiotropium [place] [Spiriva] 1 cap INHALATION RT-DAILY 10/13/17 02/04/23 History Atorvastatin [Lipitor] 10 mg PO W/SUPPER 03/19/21 02/04/23 History Omeprazole 20 mg PO DAILY 12/18/22 02/04/23 History Aprepitant [Emend] 80 mg PO DIRECTED 02/04/23 02/04/23 History Lido/Mdryl/Maalox 111 5 ml PO PCHS 02/04/23 02/04/23 History Lidocaine-Prilocaine Cream [Emla 1 applic TOPICAL DAILY PRN 02/04/23 02/04/23 History Cream 2.5%/2.5%] OLANZapine [ZyPREXA] 2.5 - 5 mg PO HS 02/04/23 02/04/23 History Ondansetron Odt [Zofran Odt] 4 mg PO Q4H PRN 02/04/23 02/04/23 History Allergies Allergy/AdvReac Type Severity Reaction Status Date / Time budesonide [From Symbicort] AdvReac ANXIETY Verified 02/04/23 08:51 formoterol [From Symbicort] AdvReac ANXIETY Verified 02/04/23 08:51 zolpidem [From Ambien] AdvReac Hallucinati Verified 02/04/23 08:51 ons Physical Exam Vitals: Vital Signs Temp Pulse Pulse Resp BP BP Pulse Ox 02/04/23 15:37 100 02/04/23 15:32 96 02/04/23 15:17 98.8 F 109 H 18 128/72 95 02/04/23 13:31 104 H 16 98 02/04/23 13:13 97.7 F 112 H 18 130/67 02/04/23 11:37 101.6 F H 122 H 20 151/71 94 L 02/04/23 07:47 113 H 24 96 02/04/23 07:45 107 H 02/04/23 07:31 105 H 20 02/04/23 06:28 98 18 118/66 94 L 02/04/23 05:08 98.8 F 103 H 20 122/67 98 Intake and Output 02/04/23 02/04/23 02/04/23 06:59 14:59 22:59 Other: # Voids 1 # Bowel Movements 1 Weight 64.41 kg 64.41 kg - Constitutional General appearance: average body habitus, no acute distress - EENT diffuse mucositis noted Eyes: anicteric sclerae, EOMI ENT: hearing grossly normal - Respiratory Respiratory: bilateral: CTA - Cardiovascular Rhythm: regular Heart sounds: normal: S1, S2 Abnormal Heart Sounds: no systolic murmur, no diastolic murmur, no rub, no S3 Gallop, no S4 Gallop, no click, no other - Gastrointestinal General gastrointestinal: soft, no tenderness - Integumentary Integumentary: no cyanotic, no jaundiced - Neurologic grossly intact - Musculoskeletal Musculoskeletal: generalized weakness - Psychiatric Psychiatric: A&O x's 3, appropriate affect, intact judgment & insight Results CBC & Chem 7: 02/04/23 05:48 02/04/23 05:48 Labs: Abnormal Lab Results - Last 24 Hours (Table) 02/04/23 02/04/23 02/04/23 Range/Units 05:48 05:48 09:58 WBC 0.6 L* (3.8-10.6) k/uL Plt Count 96 L D (150-450) k/uL D-Dimer 1.51 H (<0.60) mg/L FEU Sodium 133 L (137-145) mmol/L Carbon Dioxide 31 H (22-30) mmol/L BUN 20 H (7-17) mg/dL Total Protein 5.7 L (6.3-8.2) g/dL Albumin 3.3 L (3.5-5.0) g/dL Ur Specific [place] (1.001-1.035) 02/04/23 Range/Units 12:52 WBC (3.8-10.6) k/uL Plt Count (150-450) k/uL D-Dimer (<0.60) mg/L FEU Sodium (137-145) mmol/L Carbon Dioxide (22-30) mmol/L BUN (7-17) mg/dL Total Protein (6.3-8.2) g/dL Albumin (3.5-5.0) g/dL Ur Specific [place] 1.036 H (1.001-1.035) CT scan - abdomen: report reviewed CT scan - chest: report reviewed CT Scan - head: report reviewed CT scan - pelvis: report reviewed Assessment and Plan (1) Dehydration Current Visit: Yes Status: Acute Priority: High Code(s): E86.0 - DEHYDRATION SNOMED Code(s): 45999170 (2) Neutropenia Current Visit: Yes Status: Acute Priority: High Code(s): D70.9 - NEUTROPENIA, UNSPECIFIED SNOMED Code(s): 916715953 (3) Breast cancer Current Visit: Yes Status: Acute Priority: High Code(s): C50.919 - MALIGNANT NEOPLASM OF UNSP SITE OF UNSPECIFIED FEMALE BREAST SNOMED Code(s): 685679908 Plan: Neutropenia: -WBC 600. Patient completed cycle 1 of Adriamycin and Cytoxan with neulasta on 01/28/23. Neulasta injection given on 01/29. Noted cytopennia common with this regimen. G-CSF takes 7-10 days to become effective. She is s/p 6 days from injection date. Would expect counts to improve over the next 1-3 days. No need for additional G-CSF support at this time. Will continue to monitor -Will order infectious workup. CTA chest negative for acute processes -Pt started on clear liquid diet for bowel rest -Empiric abx Vanco and cefepime has been started. ID consulted -KOOLs solution ordered for mucositis Breast cancer: -S/p right lumpectomy with sentinel node biopsy on 12/21/22. 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 -Completed cycle 1 of Adriamycin and Cytoxan with neulasta on 01/28/23 -May have to delay next cycle by 1 week, pending recovery of counts and acute condition. Will schedule hospital f/u prior to cycle 2 to ensure she has adequately recovered Attests: I have seen and examined pt, performed H&P, developed impression and plan of care. Discussed with dictator. Agree with documentation, dictated as a scribe
[2023-02-04] MEDS: ATORVASTATIN 10 MG TAB PO SCH (16:57)
[2023-02-04] MEDS: HYDROCORTISONE SUCCINATE 100 MG/2 ML VIAL IV SCH (18:08)
[2023-02-04] MEDS ORDERED: MOMETASONE INHALATION SCH (20:00)
[2023-02-04] MEDS ORDERED: FORMOTEROL INHALATION SCH (20:00)
[2023-02-04] MEDS: FORMOTEROL FUMARATE 20 MCG/2 ML NEBU INHALATION SCH (21:15)
[2023-02-04] MEDS: LATANOPROST 0.005% OPHTH DROPS 2.5 ML BTL BOTH EYES SCH (21:33)
--- NOTE | 2023-02-04 22:10 | P.CONS ---
History of Present Illness - Reason for Consult Consult date: 02/04/23 - History of Present Illness Patient is a 72-year-old female with a past medical history significant for COPD breast cancer for the patient recently did get Mediport placement and completed her first chemotherapy cycle on 01/28/2023 patient now presenting to the [facility] ER complains of generalized weakness dizziness and near syncopal episode patient denies any headache or URI symptoms no chest pain shortness of breath or cough she did have some sores in the mouth but no difficulty swallowing some nausea but no vomiting no abdominal pain however he did have diarrhea with multiple loose stools condition of the patient was evaluated on presentation to the hospital patient initially febrile subseque ntly spiked a fever of 101.6 F patient was tachycardic did have a low white count of 0.6 and neutrophil count not done creatinine 0.86 liver enzymes are normal UA has been negative influenza RSV was negative patient did have a CT of the brain that was negative for any bleed CT of the chest no evidence for PE COPD with mild emphysema no acute processes seen CT abdominal pelvis prominent distention of the urinary bladder after 14 cm nondilated small bowel loops , diverticulosis without diverticulitis patient was empirically started on cefepime and vancomycin infectious was consulted for further management of antibiotic therapy Past Medical History Past Medical History: COPD, Eye Disorder, Hyperlipidemia Additional Past Medical History / Comment(s): Bronchitis, bilateral eyes with increased intraocular pressure-not glaucoma yet, neuralgia R side forhead in past,daily steroid, FOOD GETS STUCK IN THROAT, BLOATING History of Any Multi-Drug Resistant Organisms: None Reported Past Surgical History: Breast Surgery, Hernia Repair, Orthopedic Surgery Additional Past Surgical History / Comment(s): Bilateral carpal tunnel; bilateral cataract removal with lens, bronchoscopy, R inguinal hernia repair, colonoscopy, benign L breast biopsy. RT BREAST BIOSPY, Past Anesthesia/Blood Transfusion Reactions: No Reported Reaction Past Psychological History: No Psychological Hx Reported Smoking Status: Former smoker - Past Family History Father Family Medical History: COPD Additional Family Medical History / Comment(s): Father in his 50s of COPD. He was a smoker. Mother Family Medical History: CVA/TIA, Hypertension, Pneumonia Additional Family Medical History / Comment(s): Mother fell at age 85 and fractured her hip. Post op she became HTN and had a stroke and then ended up with pneumonia and . Medications and Allergies Home Medications Medication Instructions Recorded Confirmed Type Bimatoprost [Lumigan 0.01% Ophth 1 drop BOTH EYES HS 10/13/17 02/04/23 History Soln] Mometasone/Formoterol [Dulera 200 2 puff INHALATION RT-BID 10/13/17 02/04/23 History Mcg-5 Mcg Inhaler] Tiotropium [place] [Spiriva] 1 cap INHALATION RT-DAILY 10/13/17 02/04/23 History Atorvastatin [Lipitor] 10 mg PO W/SUPPER 03/19/21 02/04/23 History Omeprazole 20 mg PO DAILY 12/18/22 02/04/23 History Aprepitant [Emend] 80 mg PO DIRECTED 02/04/23 02/04/23 History Lido/Mdryl/Maalox 111 5 ml PO PCHS 02/04/23 02/04/23 History Lidocaine-Prilocaine Cream [Emla 1 applic TOPICAL DAILY PRN 02/04/23 02/04/23 History Cream 2.5%/2.5%] OLANZapine [ZyPREXA] 2.5 - 5 mg PO HS 02/04/23 02/04/23 History Ondansetron Odt [Zofran Odt] 4 mg PO Q4H PRN 02/04/23 02/04/23 History Allergies Allergy/AdvReac Type Severity Reaction Status Date / Time budesonide [From Symbicort] AdvReac ANXIETY Verified 02/04/23 08:51 formoterol [From Symbicort] AdvReac ANXIETY Verified 02/04/23 08:51 zolpidem [From Ambien] AdvReac Hallucinati Verified 02/04/23 08:51 ons Physical Exam Vitals: Vital Signs Temp Pulse Resp BP Pulse Ox 02/04/23 11:37 101.6 F H 122 H 20 151/71 94 L 02/04/23 07:47 113 H 24 96 02/04/23 07:45 107 H 02/04/23 07:31 105 H 20 02/04/23 06:28 98 18 118/66 94 L 02/04/23 05:08 98.8 F 103 H 20 122/67 98 Intake and Output 02/03/23 02/04/23 02/04/23 22:59 06:59 14:59 Other: Weight 64.41 kg Results CBC & Chem 7: 02/06/23 05:06 02/06/23 05:06 Labs: Abnormal Lab Results - Last 24 Hours (Table) 02/04/23 02/04/23 02/04/23 Range/Units 05:48 05:48 09:58 WBC 0.6 L* (3.8-10.6) k/uL Plt Count 96 L D (150-450) k/uL D-Dimer 1.51 H (<0.60) mg/L FEU Sodium 133 L (137-145) mmol/L Carbon Dioxide 31 H (22-30) mmol/L BUN 20 H (7-17) mg/dL Total Protein 5.7 L (6.3-8.2) g/dL Albumin 3.3 L (3.5-5.0) g/dL Assessment and Plan Plan: 1patient presented hospital with febrile neutropenia in this patient with recent diagnosis of breast cancer has received her first cycle of chemotherapy about a week ago now presenting with weakness did have predominantly GI symptoms especially diarrhea and did have some sores in the mouth CT of the chest was negative for any pneumonia urine was negative no evidence of any cellulitis at the [facility] site 2-we will check stool studies including C. difficile and stool culture, blood cultures obtained currently pending 3continue with empiric cefepime and vancomycin while waiting for the work-up to be completed We will follow on clinical condition and cultures to further adjust medication if needed Thank you for this consultation we will follow the patient along with you Dictation was produced using [employer] dictation software. please excuse any grammatical, word or spelling errors. Time with Patient: Greater than 30
[2023-02-05] MEDS: HYDROCORTISONE SUCCINATE 100 MG/2 ML VIAL IV SCH ×5 (00:20→23:59)
[2023-02-05] MEDS: VANCOMYCIN 1,250 MG in SODIUM CHLORIDE 0.9% 250 ML IVPB SCH (05:28)
[2023-02-05] MEDS: SODIUM CHLORIDE 0.9% 1,000 ML IV SCH ×3 (05:29→16:43)
[2023-02-05] MEDS: FORMOTEROL FUMARATE 20 MCG/2 ML NEBU INHALATION SCH ×2 (08:10→18:20)
[2023-02-05] MEDS: BUDESONIDE 1 MG/2 ML NEBU INHALATION SCH ×2 (08:10→18:20)
[2023-02-05] MEDS: IPRATROPIUM-ALBUTEROL 3 ML NEB INHALATION SCH ×4 (08:11→18:21)
[2023-02-05] MEDS: PANTOPRAZOLE 40 MG TABLET PO SCH (11:41)
[2023-02-05] MEDS: CEFEPIME 2 GM in SODIUM CHLORIDE 0.9% 100 ML IVPB SCH ×2 (11:42→20:53)
[2023-02-05] MEDS: MAG HYDROX/AL HYDROX/SIMETH 30 ML, diphenhydrAMINE ELIXIR 75 MG, LIDOCAINE VISCOUS 2% 3... PO SCH ×9 (11:44→20:54)
--- NOTE | 2023-02-05 11:51 | P.PN ---
Subjective Progress Note Date: 02/05/23 72-year-old female who was seen in the emergency department, for generalized weakness, diarrhea, and dehydration. The patient apparently was seen in the emergency department, early in the morning on February 04. She came in for weakness, lightheadedness, and dizziness. Addition, she apparently was having multiple falls at home. In addition, more recently she was complaining of shortness of breath, chest congestion and cough. She does see my partner in the office for COPD. She states that her lung function is only at 30%. Nonetheless, she does not use oxygen at home. Currently, she is on room air. She seen in the emergency department,. She's getting a breathing treatment with albuterol sulfate and ipratropium bromide. Her home medications include albuterol updrafts, an albuterol inhaler, Dulera, 2 puffs twice a day, Spiriva, and prednisone 5 mg a day. She apparently also takes azithromycin, 250 mg every other day, primarily as an anti-inflammatory. White count is 0.6, heme him 13 .1, hematocrit 40.6, and platelet count 96,000. The patient is undergoing chemotherapy for breast cancer. D-dimer was 1.51. Sodium 133, potassium 4.2, chlorides 101, CO2 31, UN 20, and creatinine 0.86. The rest of her metabolic profile looks relatively normal. Albumin is a bit low at 3.3. Urine is negative. Brain CT shows mild central cerebral atrophy and moderate burden of chronic small vessel ischemic disease. CT angiogram was negative for pulmonary embolism, and did show some evidence of emphysema. CT of the abdomen and pelvis showed prominent distention of the urinary bladder, prominent but nondilated small bowel loops, minimal sigmoid diverticulosis, without diverticulitis, and some soft tissue bruising along the lateral aspect of the left hip and upper left thigh. The patient is seen today 02/05/2023 in follow-up on the regular [facility] floor. She is sitting up in bed. Awake and alert in no acute distress. Maintaining good O2 saturations in the 90s on room air. She's afebrile. Hemodynamically stable. Influenza screen negative. COVID-19 screen negative. RSV screen negative. She remains on bronchodilators, vancomycin and cefepime. Remains on Solu-Cortef. Objective - Vital Signs Vital signs: Vital Signs Temp 98.3 F 02/05/23 08:00 Pulse 100 02/05/23 11:15 Resp 18 02/05/23 11:15 BP 160/77 02/05/23 08:00 Pulse Ox 98 02/05/23 08:11 FiO2 Intake & Output 02/04/23 02/05/23 02/05/23 18:59 06:59 18:59 Output Total 200 Balance -200 Weight 64.41 kg Output: Urine 200 Other: Voiding Method Toilet # Voids 1 4 1 # Bowel Movements 1 1 - Exam GENERAL EXAM: Alert, pleasant 72-year-old female, on room air, comfortable in no apparent distress. HEAD: Normocephalic. EYES: Normal reaction of pupils, equal size. NOSE: Clear with pink turbinates. THROAT: No erythema or exudates. NECK: No masses, no JVD. CHEST: No chest wall deformity. LUNGS: Equal air entry with no crackles, wheeze, rhonchi or dullness. CVS: S1 and S2 normal with no audible murmur, regular rhythm. ABDOMEN: No hepatosplenomegaly, normal bowel sounds, no guarding or rigidity. SPINE: No scoliosis or deformity SKIN: No rashes CENTRAL NERVOUS SYSTEM: No focal deficits, tone is normal in all 4 extremities. EXTREMITIES: There is no peripheral edema. No clubbing, no cyanosis. Peripheral pulses are intact. - Labs CBC & Chem 7: 02/04/23 05:48 02/04/23 05:48 Labs: Abnormal Lab Results - Last 24 Hours (Table) 02/04/23 02/04/23 Range/Units 12:52 16:04 Procalcitonin 0.19 H (0.02-0.09) ng/mL Ur Specific [place] 1.036 H (1.001-1.035) Assessment and Plan Assessment: Weakness, dehydration, dizziness, lightheadedness, and frequent falls, likely related to recent chemotherapy for breast cancer. Severe COPD, with an FEV1, that is 30% of predicted, mildly active at this time. History of hyperlipidemia. History of breast cancer, currently undergoing chemotherapy. Gastroesophageal reflux disease. Prior history of tobacco use. Plan: The patient was seen and evaluated Medications reviewed Stable and on room air Continue the current treatment plan We'll continue to follow I have personally seen and examined the patient, performed the documentation and the assessment and plan as written. Number of minutes spent on the visit: 10.
[2023-02-05 13:08] LABS: Basophils % (A) 0 %; Eosinophils % (A) 0 %; HCT 33.1 % (34.0-46.0); HGB 11.1 gm/dL (11.4-16.0); Lymphocytes # (A) 0.2 k/uL (1.0-4.8); Lymphocytes % (A) 24 %; MCHC 33.4 g/dL (31.0-37.0); MCV 92.8 fL (80.0-100.0); Mean Platelet Volume 9.2; Monocytes # (A) 0.1 k/uL (0-1.0); Monocytes % (A) 8 %; Neutrophils % (A) 63 %; RBC 3.57 m/uL (3.80-5.40); RDW 13.2 % (11.5-15.5)
[2023-02-05 13:12] LABS: WBC 0.7 k/uL (3.8-10.6)
[2023-02-05 13:13] LABS: Neutrophils # (A) 0.4 k/uL (1.3-7.7)
[2023-02-05 13:17] LABS: Platelet Count 76 k/uL (150-450)
--- NOTE | 2023-02-05 14:57 | P.PN ---
Progress Note - Text Progress Note Date: 02/05/23 Chief Complaint: Tired Very pleasant 72-year-old patient, follows with Dr. Mohan. Rotoprinter Dr. Parker. Oncologist Dr. Garber. Patient has been diagnosed with breast cancer. Stage I. Triple negative. Posterior lymph nodes. Received her first chemotherapy. Patient thereafter started feeling increasingly tired. The point she fell down yesterday. Has been having diarrhea. A few a day. No blood. No abdominal pain. Has been feeling cold. Did spike a fever in the ER. Decreased appetite. Tired rundown. Had a baseline patient does have a congested cough. Patient has noted urine increased urinary frequency. Has been a bit more short of breath right now. February 05: Tired. Short of breath. Some clear sputum. On IV cefepime and vancomycin. Cultures negative throughout. Did tolerate some diet. Active Medications Acetaminophen (Acetaminophen Tab 325 Mg Tab) 650 mg PO Q6HR PRN PRN Reason: Mild Pain or Fever > 100.5 Last Admin: 02/04/23 19:52 Dose: 650 mg Albuterol/Ipratropium (Ipratropium-Albuterol 3 Ml Neb) 3 ml INHALATION RT-QID [facility] Last Admin: 02/05/23 11:15 Dose: 3 ml Atorvastatin Calcium (Atorvastatin 10 Mg Tab) 10 mg PO W/SUPPER [facility] Last Admin: 02/04/23 16:57 Dose: 10 mg Budesonide (Budesonide 1 Mg/2 Ml Nebu) 1 mg INHALATION RT-BID [facility] Last Admin: 02/05/23 08:10 Dose: Not Given Al Hydroxide/Mg Hydroxide 30 ml/ Diphenhydramine HCl 75 mg/Lidocaine HCl 30 ml 0 ml PO TID [facility] Last Admin: 02/05/23 11:44 Dose: 5 ml Formoterol Fumarate (Formoterol Fumarate 20 Mcg/2 Ml Nebu) 20 mcg INHALATION RT-BID [facility] Last Admin: 02/05/23 08:10 Dose: Not Given Hydrocortisone Sodium Succinate (Hydrocortisone Succinate 100 Mg/2 Ml Vial) 50 mg IV Q6HR [facility] Last Admin: 02/05/23 12:42 Dose: 50 mg Sodium Chloride (Saline 0.9%) 1,000 mls @ 130 mls/hr IV .Q7H42M [facility] Last Admin: 02/05/23 09:13 Dose: 130 mls/hr Cefepime HCl 2 gm/ Sodium (Chloride) 100 mls @ 25 mls/hr IVPB Q12HR [facility]; Protocol Last Admin: 02/05/23 11:42 Dose: 25 mls/hr Vancomycin HCl 1,250 mg/ (Sodium Chloride) 250 mls @ 125 mls/hr IVPB Q18H [facility] Last Admin: 02/05/23 05:28 Dose: 125 mls/hr Latanoprost (Latanoprost 0.005% Ophth Drops 2.5 Ml Btl) 1 drops BOTH EYES HS [facility] Last Admin: 02/04/23 21:33 Dose: 1 drops Miscellaneous Information (Vancomycin Trough Due 1 Each Misc) 0 each MISCELLANE DIRECTED ONE Stop: 02/06/23 17:01 Naloxone HCl (Naloxone 0.4 Mg/Ml 1 Ml Vial) 0.2 mg IV Q2M PRN PRN Reason: Opioid Reversal Ondansetron HCl (Ondansetron 4 Mg/2 Ml Vial) 4 mg IVP Q8HR PRN PRN Reason: Nausea And Vomiting Ondansetron HCl (Ondansetron Odt 4 Mg Tab) 4 mg PO Q4H PRN PRN Reason: Nausea And Vomiting Pantoprazole Sodium (Pantoprazole 40 Mg Tablet) 40 mg PO DAILY [facility] Last Admin: 02/05/23 11:41 Dose: 40 mg Past medical history to include: COPD, hyperlipidemia, breast cancer triple negative currently undergoing treatment Social history: Lives alone. Stop smoking around 1999. Smoked for about 31 years. No alcohol Physical examination: VITAL SIGNS: 98.3, 114, 16, 146 by Lilly 6, 94% room air GENERAL: BMI 24.4, reclining in bed, awake, - short of breath, congested cough EYES: Pupils equal. Conjunctiva normal. HEENT: External appearance of nose and ears normal, oral cavity white spots in the r pharynx. NECK: JVD not raised; masses not palpable. HEART: First and second heart sounds are normal; no edema. LUNGS:[ Respiratory rate increased, diminished breath sounds , coarse breath sounds ABDOMEN: Soft, nontender, liver spleen not palpable, no masses palpable. PSYCH: [Alert and oriented x3; mood and affect slightly anxious. MUSCULOSKELETAL:No Clubbing/cyanosis;muscles-grossly intact. Evidence of OA INVESTIGATIONS, reviewed in the clinical context: January ARDS: White count 0.7 hemoglobin 11.1 platelets 76 neutrophils 0.4 January 7: White count 0.6 hemoglobin 13.1 platelets 96 sodium 133 potassium 4.2 BUN 20 creatinine 0.86 UA: Negative for nitrite leukoesterase. EKG tracing personally reviewed by me-normal sinus rhythm. Rate 106 CT brain without contrast: Mild central cerebral atrophy. Moderate burden of chronic small vessel ischemic disease. CT angiogram chest: No evidence of PE. Emphysema changes. Assessment and plan: -Sepsis picture in a patient status post first dose of chemotherapy. Patient's UA is benign. Had some more shortness breath. This could be from tumor lysis/pneumonia. Empirically patient started on IVs cefepime and vancomycin. Blood culture pending. -Acute COPD exacerbation in a ex-smoker: DuoNeb, nebulized steroids -Pancytopenia secondary to chemotherapy -Hyperlipidemia Lipitor 10 mg with supper -Breast cancer stage I, triple negative. Has received first dose of chemotherapy. Being followed by Dr. Garber from oncology. -Full code Continue IV antibiotics. Discussed. Follow labs.
--- NOTE | 2023-02-05 15:37 | P.PN ---
Subjective Progress Note Date: 02/05/23 Principal diagnosis: neutropenic fever At today's visit patient is resting comfortably in bed. She is reporting improvement in symptoms today. She is tolerating clear liquid diet well. Denies nausea vomiting and abdominal pain. Diarrhea has subsided. Patient developed fever last night, Tmax 101.8. Afebrile today. WBC mildly improved at 700, ANC 400. Objective - Vital Signs Vital signs: Vital Signs Temp 98.3 F 02/05/23 12:40 Pulse 102 H 02/05/23 15:22 Resp 16 02/05/23 12:40 BP 146/66 02/05/23 12:40 Pulse Ox 94 L 02/05/23 12:40 FiO2 Intake & Output 02/04/23 02/05/23 02/05/23 18:59 06:59 18:59 Output Total 200 Balance -200 Weight 64.41 kg Output: Urine 200 Other: Voiding Method Toilet # Voids 1 4 1 # Bowel Movements 1 1 - Constitutional General appearance: Present: average body habitus, no acute distress - EENT Eyes: Present: anicteric sclerae, EOMI ENT: Present: hearing grossly normal - Respiratory Details: breathing is even and unlabored - Cardiovascular Details: skin is warm and dry - Gastrointestinal General gastrointestinal: Present: soft. Absent: distended, tenderness - Integumentary Integumentary: Absent: cyanotic, jaundiced - Neurologic Neurologic Comment(s): grossly intact - Musculoskeletal Musculoskeletal: Present: generalized weakness - Psychiatric Psychiatric: Present: A&O x's 3, appropriate affect, intact judgment & insight - Labs CBC & Chem 7: 02/05/23 12:19 02/04/23 05:48 Labs: Abnormal Lab Results - Last 24 Hours (Table) 02/04/23 02/05/23 Range/Units 16:04 12:19 WBC 0.7 L* (3.8-10.6) k/uL RBC 3.57 L (3.80-5.40) m/uL Hgb 11.1 L (11.4-16.0) gm/dL Hct 33.1 L (34.0-46.0) % Plt Count 76 L (150-450) k/uL Neutrophils # 0.4 L* (1.3-7.7) k/uL Lymphocytes # 0.2 L (1.0-4.8) k/uL Procalcitonin 0.19 H (0.02-0.09) ng/mL Assessment and Plan (1) Dehydration Current Visit: Yes Status: Acute Priority: High Code(s): E86.0 - DEHYDRATION SNOMED Code(s): 15854427 (2) Neutropenia Current Visit: Yes Status: Acute Priority: High Code(s): D70.9 - NEUTROPENIA, UNSPECIFIED SNOMED Code(s): 583705035 (3) Breast cancer Current Visit: Yes Status: Acute Priority: High Code(s): C50.919 - MALIGNANT NEOPLASM OF UNSP SITE OF UNSPECIFIED FEMALE BREAST SNOMED Code(s): 370917392 Plan: Neutropenic fever: -WBC improved, 700, ANC 400. Patient completed cycle 1 of Adriamycin and Cytoxan with neulasta on 01/28/23. Neulasta injection given on 01/29. Noted cytopennia common with this regimen. G-CSF takes 7-10 days to become effective. Would expect counts to continue to improve over the next 1-2 days. No need for additional G-CSF support at this time. Will continue to monitor -Tmax 101.8, afebrile today -Infectious workup negative thus far. Blood and stool cultures pending. -Tolerating clear liquid diet well, will advance to full liquids -Empiric abx Vanco and cefepime has been started. ID following and agrees with plan -KOOLs solution ordered for mucositis Breast cancer: -S/p right lumpectomy with sentinel node biopsy on 12/21/22. 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 -Completed cycle 1 of Adriamycin and Cytoxan with neulasta on 01/28/23 -May have to delay next cycle by 1 week, pending recovery of counts and acute condition. Will schedule hospital f/u prior to cycle 2 to ensure patient has adequately recovered
[2023-02-05] MEDS: ATORVASTATIN 10 MG TAB PO SCH (16:43)
[2023-02-05] MEDS: LATANOPROST 0.005% OPHTH DROPS 2.5 ML BTL BOTH EYES SCH (20:55)
[2023-02-06] MEDS: SODIUM CHLORIDE 0.9% 1,000 ML IV SCH ×3 (00:03→21:19)
[2023-02-06 05:47] LABS: African American GFR (CKD) >90 (>60 ml/min/1.73 sqM); Non-African American GFR(CKD) >90 (>60 ml/min/1.73 sqM)
[2023-02-06] MEDS: HYDROCORTISONE SUCCINATE 100 MG/2 ML VIAL IV SCH (05:47)
[2023-02-06 06:46] LABS: Basophils % (A) 0 %; Eosinophils % (A) 0 %; HCT 32.9 % (34.0-46.0); HGB 10.7 gm/dL (11.4-16.0); Lymphocytes # (A) 0.1 k/uL (1.0-4.8); Lymphocytes % (A) 6 %; MCH 30.9 pg (25.0-35.0); MCHC 32.7 g/dL (31.0-37.0); MCV 94.6 fL (80.0-100.0); Mean Platelet Volume 9.1; Monocytes # (A) 0.1 k/uL (0-1.0); Monocytes % (A) 6 %; Neutrophils # (A) 1.8 k/uL (1.3-7.7); Neutrophils % (A) 84 %; Platelet Count 81 k/uL (150-450); RBC 3.47 m/uL (3.80-5.40); RDW 13.1 % (11.5-15.5); WBC 2.1 k/uL (3.8-10.6)
--- NOTE | 2023-02-06 07:50 | P.PN ---
Subjective Progress Note Date: 02/06/23 72-year-old female who was seen in the emergency department, for generalized weakness, diarrhea, and dehydration. The patient apparently was seen in the emergency department, early in the morning on February 04. She came in for weakness, lightheadedness, and dizziness. Addition, she apparently was having multiple falls at home. In addition, more recently she was complaining of shortness of breath, chest congestion and cough. She does see my partner in the office for COPD. She states that her lung function is only at 30%. Nonetheless, she does not use oxygen at home. Currently, she is on room air. She seen in the emergency department,. She's getting a breathing treatment with albuterol sulfate and ipratropium bromide. Her home medications include albuterol updrafts, an albuterol inhaler, Dulera, 2 puffs twice a day, Spiriva, and prednisone 5 mg a day. She apparently also takes azithromycin, 250 mg every other day, primarily as an anti-inflammatory. White count is 0.6, heme him 13 .1, hematocrit 40.6, and platelet count 96,000. The patient is undergoing chemotherapy for breast cancer. D-dimer was 1.51. Sodium 133, potassium 4.2, chlorides 101, CO2 31, UN 20, and creatinine 0.86. The rest of her metabolic profile looks relatively normal. Albumin is a bit low at 3.3. Urine is negative. Brain CT shows mild central cerebral atrophy and moderate burden of chronic small vessel ischemic disease. CT angiogram was negative for pulmonary embolism, and did show some evidence of emphysema. CT of the abdomen and pelvis showed prominent distention of the urinary bladder, prominent but nondilated small bowel loops, minimal sigmoid diverticulosis, without diverticulitis, and some soft tissue bruising along the lateral aspect of the left hip and upper left thigh. The patient is seen today 02/05/2023 in follow-up on the regular [facility] medical floor. She is sitting up in bed. Awake and alert in no acute distress. Maintaining good O2 saturations in the 90s on room air. She's afebrile. Hemodynamically stable. Influenza screen negative. COVID-19 screen negative. RSV screen negative. She remains on bronchodilators, vancomycin and cefepime. Remains on Solu-Cortef. The patient is seen today 02/06/2023 in follow-up on the regular medical floor. She is awake and alert in no acute distress. Sitting up in bed. Feeling quite a bit better. She is maintaining good O2 saturation in the 90s on room air. She's been afebrile. Slightly tachycardic. Blood cultures reveal no growth. White count 2.1. Hemoglobin 10.7. Platelets 81,000. Creatinine 0.58. She rem ains on Solu-Cortef, bronchodilators, vancomycin and cefepime. Normal saline at 130 ML's per hour. Objective - Vital Signs Vital signs: Vital Signs Temp 98.0 F 02/06/23 01:01 Pulse 119 H 02/06/23 01:01 Resp 19 02/06/23 01:01 BP 188/83 02/06/23 01:01 Pulse Ox 92 L 02/06/23 01:01 FiO2 Intake & Output 02/05/23 02/06/23 02/06/23 18:59 06:59 18:59 Output Total 200 Balance -200 Output: Urine 200 Other: Voiding Method Toilet # Voids 1 2 - Exam GENERAL EXAM: Alert, 72-year-old female, sitting up in bed, comfortable in no apparent distress. HEAD: Normocephalic. EYES: Normal reaction of pupils, equal size. NOSE: Clear with pink turbinates. THROAT: No erythema or exudates. NECK: No masses, no JVD. CHEST: No chest wall deformity. LUNGS: Equal air entry with no crackles, wheeze, rhonchi or dullness. On room air. CVS: S1 and S2 normal with no audible murmur, regular rhythm. ABDOMEN: No hepatosplenomegaly, normal bowel sounds, no guarding or rigidity. SPINE: No scoliosis or deformity SKIN: No rashes CENTRAL NERVOUS SYSTEM: No focal deficits, tone is normal in all 4 extremities. EXTREMITIES: There is no peripheral edema. No clubbing, no cyanosis. Peripheral pulses are intact. - Labs CBC & Chem 7: 02/06/23 05:06 02/06/23 05:06 Labs: Abnormal Lab Results - Last 24 Hours (Table) 02/05/23 02/06/23 Range/Units 12:19 05:06 WBC 0.7 L* 2.1 L (3.8-10.6) k/uL RBC 3.57 L 3.47 L (3.80-5.40) m/uL Hgb 11.1 L 10.7 L (11.4-16.0) gm/dL Hct 33.1 L 32.9 L (34.0-46.0) % Plt Count 76 L 81 L (150-450) k/uL Neutrophils # 0.4 L* (1.3-7.7) k/uL Lymphocytes # 0.2 L 0.1 L (1.0-4.8) k/uL Microbiology - Last 24 Hours (Table) 02/04/23 12:40 Blood Culture - Preliminary Blood 02/04/23 12:55 Blood Culture - Preliminary Blood Assessment and Plan Assessment: Weakness, dehydration, dizziness, lightheadedness, and frequent falls, likely related to recent chemotherapy for breast cancer. Severe COPD, with an FEV1, that is 30% of predicted, mildly active at this time. History of hyperlipidemia. History of breast cancer, currently undergoing chemotherapy. Gastroesophageal reflux disease. Prior history of tobacco use. Plan: The patient was seen and evaluated Medications and labs reviewed Stable and on room air Discontinue Solu-Cortef, initiate prednisone We'll continue to follow I have personally seen and examined the patient, performed the documentation and the assessment and plan as written. Number of minutes spent on the visit: 10.
[2023-02-06] MEDS: PANTOPRAZOLE 40 MG TABLET PO SCH (08:08)
[2023-02-06] MEDS: predniSONE 10 MG TAB PO SCH (08:08)
[2023-02-06] MEDS: CEFEPIME 2 GM in SODIUM CHLORIDE 0.9% 100 ML IVPB SCH ×3 (08:09→23:33)
[2023-02-06] MEDS: MAG HYDROX/AL HYDROX/SIMETH 30 ML, diphenhydrAMINE ELIXIR 75 MG, LIDOCAINE VISCOUS 2% 3... PO SCH ×9 (08:10→21:18)
[2023-02-06] MEDS: IPRATROPIUM-ALBUTEROL 3 ML NEB INHALATION SCH ×4 (09:27→20:30)
[2023-02-06] MEDS: FORMOTEROL FUMARATE 20 MCG/2 ML NEBU INHALATION SCH ×2 (09:27→20:29)
[2023-02-06] MEDS: BUDESONIDE 1 MG/2 ML NEBU INHALATION SCH ×2 (09:27→20:28)
--- NOTE | 2023-02-06 10:35 | P.PN ---
Subjective Progress Note Date: 02/05/23 Principal diagnosis: Febrile Neutropenia Patient is a 72-year-old female with a past medical history significant for COPD breast cancer for the patient recently did get Mediport placement and completed her first chemotherapy cycle on 01/28/2023 patient now presenting to the [facility] ER complains of generalized weakness dizziness and near syncopal episode, patient did have a fever and low white count. On today's evaluation that is 02/05/2023 the patient did have overall resolution of the fever still complaining of some sores in the mouth but no difficulty sw allowing breathing comfortably on room air no chest pain shortness of breath or cough. Patient hemoglobin 11.1 white count 0.7 COVID testing was negative procalcitonin 0.19 blood cultures currently pending Objective - Vital Signs Vital signs: Vital Signs Temp 98.3 F 02/05/23 12:40 Pulse 114 H 02/05/23 12:40 Resp 16 02/05/23 12:40 BP 146/66 02/05/23 12:40 Pulse Ox 94 L 02/05/23 12:40 FiO2 Intake & Output 02/04/23 02/05/23 02/05/23 18:59 06:59 18:59 Output Total 200 Balance -200 Weight 64.41 kg Output: Urine 200 Other: Voiding Method Toilet # Voids 1 4 1 # Bowel Movements 1 1 - Exam GENERAL DESCRIPTION: Elderly female lying in bed in no distress RESPIRATORY SYSTEM: Unlabored breathing , decreased breath sounds at bases HEART: S1 S2 regular rate and rhythm ,no loud murmurs ABDOMEN: Soft , no tenderness EXTREMITIES: No edema feet - Labs CBC & Chem 7: 02/06/23 05:06 02/06/23 05:06 Labs: Abnormal Lab Results - Last 24 Hours (Table) 02/04/23 02/05/23 Range/Units 16:04 12:19 WBC 0.7 L* (3.8-10.6) k/uL RBC 3.57 L (3.80-5.40) m/uL Hgb 11.1 L (11.4-16.0) gm/dL Hct 33.1 L (34.0-46.0) % Plt Count 76 L (150-450) k/uL Neutrophils # 0.4 L* (1.3-7.7) k/uL Lymphocytes # 0.2 L (1.0-4.8) k/uL Procalcitonin 0.19 H (0.02-0.09) ng/mL Assessment and Plan (1) Febrile neutropenia Current Visit: Yes Status: Acute Code(s): D70.9 - NEUTROPENIA, UNSPECIFIED; R50.81 - FEVER PRESENTING WITH CONDITIONS CLASSIFIED ELSEWHERE SNOMED Code(s): 736435208 Plan: 1patient presented hospital with febrile neutropenia in this patient with recent diagnosis of breast cancer has received her first cycle of chemotherapy about a week ago now presenting with weakness did have predominantly GI symptoms especially diarrhea and did have some sores in the mouth CT of the chest was negative for any pneumonia urine was negative no evidence of any cellulitis at the [facility] [place] site 2stool studies and blood cultures are currently pending 3patient did have resolution of the fever we will continue patient cefepime and vancomycin while waiting for the culture to finalize Dictation was produced using [employer] software. please excuse any grammatical, word or spelling errors.
[2023-02-06] MEDS ORDERED: VANCOMYCIN TROUGH DUE 1 EACH MISC MISCELLANE ONE (17:00)
--- NOTE | 2023-02-06 17:43 | P.PN ---
Progress Note - Text Progress Note Date: 02/06/23 Chief Complaint: Tired Very pleasant 72-year-old patient, follows with Dr. Mohan. Yeast Pumper Dr. Parker. Oncologist Dr. Garber. Patient has been diagnosed with breast cancer. Stage I. Triple negative. Posterior lymph nodes. Received her first chemotherapy. Patient thereafter started feeling increasingly tired. The point she fell down yesterday. Has been having diarrhea. A few a day. No blood. No abdominal pain. Has been feeling cold. Did spike a fever in the ER. Decreased appetite. Tired rundown. Had a baseline patient does have a congested cough. Patient has noted urine increased urinary frequency. Has been a bit more short of breath right now. February 05: Tired. Short of breath. Some clear sputum. On IV cefepime and vancomycin. Cultures negative throughout. Did tolerate some diet. February 06: Reclining in bed. Not very keen on hospital food friend visiting. Left family bring in some food, as discussed with limitations. No fever. On IV cefepime and vancomycin. Respiratory symptoms better. We will do nasal MRSA screen. Active Medications Acetaminophen (Acetaminophen Tab 325 Mg Tab) 650 mg PO Q6HR PRN PRN Reason: Mild Pain or Fever > 100.5 Last Admin: 02/04/23 19:52 Dose: 650 mg Albuterol/Ipratropium (Ipratropium-Albuterol 3 Ml Neb) 3 ml INHALATION RT-QID [facility] Last Admin: 02/06/23 15:46 Dose: 3 ml Atorvastatin Calcium (Atorvastatin 10 Mg Tab) 10 mg PO W/SUPPER [facility] Last Admin: 02/05/23 16:43 Dose: 10 mg Budesonide (Budesonide 1 Mg/2 Ml Nebu) 1 mg INHALATION RT-BID [facility] Last Admin: 02/06/23 09:27 Dose: Not Given Al Hydroxide/Mg Hydroxide 30 ml/ Diphenhydramine HCl 75 mg/Lidocaine HCl 30 ml 0 ml PO TID [facility] Last Admin: 02/06/23 15:36 Dose: 5 ml Formoterol Fumarate (Formoterol Fumarate 20 Mcg/2 Ml Nebu) 20 mcg INHALATION RT-BID [facility] Last Admin: 02/06/23 09:27 Dose: Not Given Sodium Chloride (Saline 0.9%) 1,000 mls @ 130 mls/hr IV .Q7H42M [facility] Last Admin: 02/06/23 09:25 Dose: 130 mls/hr Vancomycin HCl 1,250 mg/ (Sodium Chloride) 250 mls @ 125 mls/hr IVPB Q18H [facility] Last Admin: 02/06/23 00:00 Dose: 125 mls/hr Cefepime HCl 2 gm/ Sodium (Chloride) 100 mls @ 25 mls/hr IVPB Q8HR [facility]; Protocol Last Admin: 02/06/23 15:35 Dose: 25 mls/hr Latanoprost (Latanoprost 0.005% Ophth Drops 2.5 Ml Btl) 1 drops BOTH EYES HS [facility] Last Admin: 02/05/23 20:55 Dose: 1 drops Naloxone HCl (Naloxone 0.4 Mg/Ml 1 Ml Vial) 0.2 mg IV Q2M PRN PRN Reason: Opioid Reversal Ondansetron HCl (Ondansetron 4 Mg/2 Ml Vial) 4 mg IVP Q8HR PRN PRN Reason: Nausea And Vomiting Ondansetron HCl (Ondansetron Odt 4 Mg Tab) 4 mg PO Q4H PRN PRN Reason: Nausea And Vomiting Pantoprazole Sodium (Pantoprazole 40 Mg Tablet) 40 mg PO DAILY [facility] Last Admin: 02/06/23 08:08 Dose: 40 mg Prednisone (Prednisone 10 Mg Tab) 30 mg PO DAILY [facility] Last Admin: 02/06/23 08:08 Dose: 30 mg Past medical history to include: COPD, hyperlipidemia, breast cancer triple negative currently undergoing treatment Social history: Lives alone. Stop smoking around 1999. Smoked for about 31 years. No alcohol Physical examination: VITAL SIGNS: 98.3, 96, 19, 151-75, 95% room air GENERAL: reclining in bed, awake, -breathing a bit better EYES: Pupils equal. Conjunctiva normal. HEENT: External appearance of nose and ears normal, oral cavity white spots in the r pharynx. NECK: JVD not raised; masses not palpable. HEART: First and second heart sounds are normal; no edema. LUNGS:[ Respiratory rate increased, diminished breath sounds , improvement entry ABDOMEN: Soft, nontender, liver spleen not palpable, no masses palpable. PSYCH: [Alert and oriented x3; mood and affect normal. MUSCULOSKELETAL:No Clubbing/cyanosis;muscles-grossly intact. Evidence of OA INVESTIGATIONS, reviewed in the clinical context: February 06: WBC 2.1 hemoglobin 10.7 platelets 81 pro calcitonin 0.15 February 05: White count 0.7 hemoglobin 11.1 platelets 76 neutrophils 0.4 February 04: White count 0.6 hemoglobin 13.1 platelets 96 sodium 133 potassium 4.2 BUN 20 creatinine 0.86 UA: Negative for nitrite leukoesterase. EKG tracing personally reviewed by me-normal sinus rhythm. Rate 106 CT brain without contrast: Mild central cerebral atrophy. Moderate burden of chronic small vessel ischemic disease. CT angiogram chest: No evidence of PE. Emphysema changes. Assessment and plan: -Sepsis picture in a patient status post first dose of chemotherapy. Patient's UA is benign. Had some more shortness breath. This could be from tumor lysis/pneumonia. Empirically patient started on IVs cefepime and vancomycin. Blood culture N now -Suspect pneumonia, gram-negative organism, POA IV cefepime and vancomycin. Check MRSA nasal screen. -Acute COPD exacerbation in a ex-smoker: DuoNeb, nebulized steroids -Pancytopenia secondary to chemotherapy -Hyperlipidemia Lipitor 10 mg with supper -Breast cancer stage I, triple negative. Has received first dose of chemotherapy. Being followed by Dr. Garber from oncology. -Full code Continue IV antibiotics. Discussed. Check MRSA nasal screen. Oral prednisone per pulmonary.
--- NOTE | 2023-02-06 18:15 | P.PN ---
Subjective Progress Note Date: 02/06/23 Principal diagnosis: Febrile Neutropenia Patient is a 72-year-old female with a past medical history significant for COPD breast cancer for the patient recently did get Mediport placement and completed her first chemotherapy cycle on 01/28/2023 patient now presenting to the [facility] ER complains of generalized weakness dizziness and near syncopal episode, patient did have a fever and low white count. On today's evaluation that is 02/06/2023, the patient remains to be afebrile, the patient is breathing comfortably, the patient denies chest pain shortness of breath or cough, no nausea no vomiting no abdominal pain and no diarrhea has been reported. Patient hemoglobin 10.7 white count 2.1 COVID testing was negative procalcitonin 0.19 blood cultures currently pending Objective - Vital Signs Vital signs: Vital Signs Temp 98.3 F 02/06/23 12:39 Pulse 100 02/06/23 15:56 Resp 19 02/06/23 12:39 BP 151/75 02/06/23 12:39 Pulse Ox 95 02/06/23 12:39 FiO2 Intake & Output 02/05/23 02/06/23 02/06/23 18:59 06:59 18:59 Output Total 200 Balance -200 Output: Urine 200 Other: Voiding Method Toilet Toilet # Voids 1 2 1 - Exam GENERAL DESCRIPTION: Elderly female lying in bed in no distress RESPIRATORY SYSTEM: Unlabored breathing , decreased breath sounds at bases HEART: S1 S2 regular rate and rhythm ,no loud murmurs ABDOMEN: Soft , no tenderness EXTREMITIES: No edema feet - Labs CBC & Chem 7: 02/06/23 05:06 02/06/23 05:06 Labs: Abnormal Lab Results - Last 24 Hours (Table) 02/06/23 02/06/23 Range/Units 05:06 05:06 WBC 2.1 L (3.8-10.6) k/uL RBC 3.47 L (3.80-5.40) m/uL Hgb 10.7 L (11.4-16.0) gm/dL Hct 32.9 L (34.0-46.0) % Plt Count 81 L (150-450) k/uL Lymphocytes # 0.1 L (1.0-4.8) k/uL Procalcitonin 0.15 H (0.02-0.09) ng/mL Microbiology - Last 24 Hours (Table) 02/04/23 12:40 Blood Culture - Preliminary Blood 02/04/23 12:55 Blood Culture - Preliminary Blood Assessment and Plan (1) Febrile neutropenia Current Visit: Yes Status: Acute Code(s): D70.9 - NEUTROPENIA, UNSPECIFIED; R50.81 - FEVER PRESENTING WITH CONDITIONS CLASSIFIED ELSEWHERE SNOMED Code(s): 435290029 Plan: 1patient presented hospital with febrile neutropenia in this patient with recent diagnosis of breast cancer has received her first cycle of chemotherapy about a week ago now presenting with weakness did have predominantly GI symptoms especially diarrhea and did have some sores in the mouth CT of the chest was negative for any pneumonia urine was negative no evidence of any cellulitis at the [facility] site 2stool studies and blood cultures are currently pending 3patient did have resolution of the fever and improvement in the white count was up to 2.1 4we will continue patient cefepime and vancomycin while waiting for the culture to finalize Dictation was produced using [employer] dictation software. please excuse any grammatical, word or spelling errors. Time with Patient: Less than 30
[2023-02-06] MEDS: ATORVASTATIN 10 MG TAB PO SCH (18:27)
[2023-02-06] MEDS: VANCOMYCIN 1,250 MG in SODIUM CHLORIDE 0.9% 250 ML IVPB SCH ×3 (19:36)
[2023-02-06] MEDS: LATANOPROST 0.005% OPHTH DROPS 2.5 ML BTL BOTH EYES SCH (21:18)
[2023-02-07] MEDS: ACETAMINOPHEN TAB 325 MG TAB PO PRN ×2 (01:54→08:50)
[2023-02-07] MEDS ORDERED: VANCOMYCIN 1,250 MG in SODIUM CHLORIDE 0.9% 250 ML IVPB SCH (07:00)
[2023-02-07] MEDS: BUDESONIDE 1 MG/2 ML NEBU INHALATION SCH ×3 (08:20→20:24)
[2023-02-07] MEDS: FORMOTEROL FUMARATE 20 MCG/2 ML NEBU INHALATION SCH (08:20)
[2023-02-07] MEDS: IPRATROPIUM-ALBUTEROL 3 ML NEB INHALATION SCH ×4 (08:20→20:24)
[2023-02-07] MEDS: predniSONE 10 MG TAB PO SCH (08:44)
[2023-02-07] MEDS: PANTOPRAZOLE 40 MG TABLET PO SCH (08:44)
[2023-02-07] MEDS: CEFEPIME 2 GM in SODIUM CHLORIDE 0.9% 100 ML IVPB SCH ×2 (08:44→16:06)
[2023-02-07] MEDS: MAG HYDROX/AL HYDROX/SIMETH 30 ML, diphenhydrAMINE ELIXIR 75 MG, LIDOCAINE VISCOUS 2% 3... PO SCH ×9 (08:44→22:29)
[2023-02-07] MEDS: SODIUM CHLORIDE 0.9% 1,000 ML IV SCH ×2 (08:57→16:16)
--- NOTE | 2023-02-07 10:32 | P.PN ---
Subjective Progress Note Date: 02/07/23 72-year-old female who was seen in the emergency department, for generalized weakness, diarrhea, and dehydration. The patient apparently was seen in the emergency department, early in the morning on February 04. She came in for weakness, lightheadedness, and dizziness. Addition, she apparently was having multiple falls at home. In addition, more recently she was complaining of shortness of breath, chest congestion and cough. She does see my partner in the office for COPD. She states that her lung function is only at 30%. Nonetheless, she does not use oxygen at home. Currently, she is on room air. She seen in the emergency department,. She's getting a breathing treatment with albuterol sulfate and ipratropium bromide. Her home medications include albuterol updrafts, an albuterol inhaler, Dulera, 2 puffs twice a day, Spiriva, and prednisone 5 mg a day. She apparently also takes azithromycin, 250 mg every other day, primarily as an anti-inflammatory. White count is 0.6, heme him 13 .1, hematocrit 40.6, and platelet count 96,000. The patient is undergoing chemotherapy for breast cancer. D-dimer was 1.51. Sodium 133, potassium 4.2, chlorides 101, CO2 31, UN 20, and creatinine 0.86. The rest of her metabolic profile looks relatively normal. Albumin is a bit low at 3.3. Urine is negative. Brain CT shows mild central cerebral atrophy and moderate burden of chronic small vessel ischemic disease. CT angiogram was negative for pulmonary embolism, and did show some evidence of emphysema. CT of the abdomen and pelvis showed prominent distention of the urinary bladder, prominent but nondilated small bowel loops, minimal sigmoid diverticulosis, without diverticulitis, and some soft tissue bruising along the lateral aspect of the left hip and upper left thigh. The patient is seen today 02/05/2023 in follow-up on the regular [facility] medical floor. She is sitting up in bed. Awake and alert in no acute distress. Maintaining good O2 saturations in the 90s on room air. She's afebrile. Hemodynamically stable. Influenza screen negative. COVID-19 screen negative. RSV screen negative. She remains on bronchodilators, vancomycin and cefepime. Remains on Solu-Cortef. The patient is seen today 02/06/2023 in follow-up on the regular medical floor. She is awake and alert in no acute distress. Sitting up in bed. Feeling quite a bit better. She is maintaining good O2 saturation in the 90s on room air. She's been afebrile. Slightly tachycardic. Blood cultures reveal no growth. White count 2.1. Hemoglobin 10.7. Platelets 81,000. Creatinine 0.58. She rem ains on Solu-Cortef, bronchodilators, vancomycin and cefepime. Normal saline at 130 ML's per hour. The patient is seen today 02/07/2023 in follow-up on the regular medical floor. She is currently sitting up in a chair at the bedside. Awake and alert in no acute distress. She is maintaining O2 saturations in the 90s on 2 L/m per nasal cannula. Mean some increasing shortness of breath, cough and congestion. She had been refusing her Pulmicort and Perforomist inhalations. He is taking DuoNe b inhalations. Continued on antibiotics in the form of vancomycin and cefepime. Normal saline at 130 MLS per hour. Lab work pending. Follow-up chest x-ray continues to show mostly COPD. No acute infiltrate. No overt failure. Blood cultures revealing no growth. Currently on a prednisone taper. Objective - Vital Signs Vital signs: Vital Signs Temp 97.9 F 02/07/23 07:35 Pulse 104 H 02/07/23 08:37 Resp 14 02/07/23 07:35 BP 165/68 02/07/23 07:35 Pulse Ox 96 02/07/23 08:23 FiO2 Intake & Output 02/06/23 02/07/23 02/07/23 18:59 06:59 18:59 Other: Voiding Method Toilet Toilet Bedside Commode # Voids 1 4 - Exam GENERAL EXAM: Alert, 72-year-old female, sitting in a chair, on 2 L nasal cannula, comfortable in no apparent distress. HEAD: Normocephalic. EYES: Normal reaction of pupils, equal size. NOSE: Clear with pink turbinates. THROAT: No erythema or exudates. NECK: No masses, no JVD. CHEST: No chest wall deformity. Left MediPort in place. LUNGS: Equal air entry with few scattered rhonchi, end expiratory wheeze. CVS: S1 and S2 normal with no audible murmur, regular rhythm. ABDOMEN: No hepatosplenomegaly, normal bowel sounds, no guarding or rigidity. SPINE: No scoliosis or deformity SKIN: No rashes CENTRAL NERVOUS SYSTEM: No focal deficits, tone is normal in all 4 extremities. EXTREMITIES: There is no peripheral edema. No clubbing, no cyanosis. Peripheral pulses are intact. - Labs CBC & Chem 7: 02/06/23 05:06 02/06/23 05:06 Labs: Microbiology - Last 24 Hours (Table) 02/04/23 12:40 Blood Culture - Preliminary Blood 02/04/23 12:55 Blood Culture - Preliminary Blood Assessment and Plan Assessment: Weakness, dehydration, dizziness, lightheadedness, and frequent falls, likely related to recent chemotherapy for breast cancer. Severe COPD, with an FEV1, that is 30% of predicted, mildly active at this time. History of hyperlipidemia. History of breast cancer, currently undergoing chemotherapy. Gastroesophageal reflux disease. Prior history of tobacco use. Plan: The patient was seen and evaluated Chest x-ray, medications and labs reviewed Stable and on 2 L nasal cannula Patient will have her Dulera brought in from home Continue DuoNeb inhalations Continue prednisone taper Continue antibiotics We'll continue to follow I have personally seen and examined the patient, performed the documentation and the assessment and plan as written. Number of minutes spent on the visit: 10.
[2023-02-07 10:51] LABS: HCT 35.8 % (34.0-46.0); HGB 11.6 gm/dL (11.4-16.0); MCH 30.7 pg (25.0-35.0); MCHC 32.4 g/dL (31.0-37.0); MCV 94.7 fL (80.0-100.0); Mean Platelet Volume 8.4; Platelet Count 108 k/uL (150-450); RBC 3.77 m/uL (3.80-5.40); RDW 13.2 % (11.5-15.5); WBC 10.3 k/uL (3.8-10.6)
--- NOTE | 2023-02-07 11:02 | XR ---
EXAMINATION TYPE: XR chest 1V portable DATE OF EXAM: 02/07/2023 COMPARISON: 02/04/2023 INDICATION: Dyspnea and difficulty in breathing TECHNIQUE: Single frontal view of the chest is obtained. FINDINGS: The heart size is normal. The pulmonary vasculature is normal. The lungs are clear. Port is present on the left with the tip in the superior vena cava region. IMPRESSION: 1. No acute pulmonary process.
[2023-02-07 11:21] LABS: African American GFR (CKD) >90 (>60 ml/min/1.73 sqM); Non-African American GFR(CKD) 89 (>60 ml/min/1.73 sqM)
[2023-02-07] MEDS: DOCUSATE 100 MG CAP PO SCH ×2 (12:24→22:29)
[2023-02-07] MEDS: BENZONATATE 100 MG CAP PO PRN (12:24)
[2023-02-07 14:15] LABS: Band Neutrophils % 5 %; Lymphocytes # (M) 0.52 k/uL (1.0-4.8); Metamyelocytes # (M) 0.21 k/uL (0); Metamyelocytes % 2 %; Monocytes # (M) 0.62 k/uL (0-1.0); Myelocytes # (M) 0.21 k/uL (0); Myelocytes % 2 %; Neutrophils % (M) 82 %; Nucleated Red Blood Cells 0 /100 WBC (0-0); Total Cells Counted 200
[2023-02-07 14:17] LABS: RBC Morphology Normal
--- NOTE | 2023-02-07 16:12 | P.PN ---
Subjective Progress Note Date: 02/07/23 Principal diagnosis: Febrile Neutropenia Patient is a 72-year-old female with a past medical history significant for COPD breast cancer for the patient recently did get Mediport placement and completed her first chemotherapy cycle on 01/28/2023 patient now presenting to the [facility] ER complains of generalized weakness dizziness and near syncopal episode, patient did have a fever and low white count. On today's evaluation that is 02/07/2023, the patient continues to be afebrile, the patient is complaining of shortness of breath and requiring supplemental oxygen today, the patient denies any chest pain or cough, the patient denies having any nausea and vomiting no abdominal pain and no diarrhea. Patient hemoglobin 11.6, the patient white count normal at 10.3, creatinine 0.66 COVID testing was negative procalcitonin 0.19 blood cultures so far negative Objective - Vital Signs Vital signs: Vital Signs Temp 98.1 F 02/07/23 12:20 Pulse 100 02/07/23 15:46 Resp 17 02/07/23 12:20 BP 167/81 02/07/23 12:20 Pulse Ox 94 L 02/07/23 12:20 FiO2 Intake & Output 02/06/23 02/07/23 02/07/23 18:59 06:59 18:59 Other: Voiding Method Toilet Toilet Bedside Commode # Voids 1 4 - Exam GENERAL DESCRIPTION: Elderly female lying in bed in no distress RESPIRATORY SYSTEM: Unlabored breathing , decreased breath sounds at bases HEART: S1 S2 regular rate and rhythm ,no loud murmurs ABDOMEN: Soft , no tenderness EXTREMITIES: No edema feet - Labs CBC & Chem 7: 02/07/23 10:30 02/07/23 10:30 Labs: Abnormal Lab Results - Last 24 Hours (Table) 02/07/23 Range/Units 10:30 RBC 3.77 L (3.80-5.40) m/uL Plt Count 108 L (150-450) k/uL Neutrophils # (Manual) 8.90 H (1.3-7.7) k/uL Lymphocytes # (Manual) 0.52 L (1.0-4.8) k/uL Metamyelocytes # (Man) 0.21 H (0) k/uL Myelocytes # (Manual) 0.21 H (0) k/uL Microbiology - Last 24 Hours (Table) 02/04/23 12:40 Blood Culture - Preliminary Blood 02/04/23 12:55 Blood Culture - Preliminary Blood Assessment and Plan (1) Febrile neutropenia Current Visit: Yes Status: Acute Code(s): D70.9 - NEUTROPENIA, UNSPECIFIED; R50.81 - FEVER PRESENTING WITH CONDITIONS CLASSIFIED ELSEWHERE SNOMED Code(s): 483793106 Plan: 1patient presented hospital with febrile neutropenia in this patient with recent diagnosis of breast cancer has received her first cycle of chemotherapy about a week ago now presenting with weakness did have predominantly GI symptoms especially diarrhea and did have some sores in the mouth CT of the chest was negative for any pneumonia urine was negative no evidence of any cellulitis at the [facility] site 2the patient blood cultures are negative and the patient white count has normalized, fever has resolved 3patient is complaining of more shortness of breath will repeat a chest x-ray as cultures, we will continue the patient on cefepime discontinued the vancomycin and monitor clinical course closely Dictation was produced using [employer] dictation software. please excuse any grammatical, word or spelling errors. Time with Patient: Less than 30
--- NOTE | 2023-02-07 16:24 | P.PN ---
Progress Note - Text Progress Note Date: 02/07/23 Chief Complaint: Tired Very pleasant 72-year-old patient, follows with Dr. Mohan. Sample Color Maker Dr. Parker. Oncologist Dr. Garber. Patient has been diagnosed with breast cancer. Stage I. Triple negative. Posterior lymph nodes. Received her first chemotherapy. Patient thereafter started feeling increasingly tired. The point she fell down yesterday. Has been having diarrhea. A few a day. No blood. No abdominal pain. Has been feeling cold. Did spike a fever in the ER. Decreased appetite. Tired rundown. Had a baseline patient does have a congested cough. Patient has noted urine increased urinary frequency. Has been a bit more short of breath right now. February 05: Tired. Short of breath. Some clear sputum. On IV cefepime and vancomycin. Cultures negative throughout. Did tolerate some diet. February 06: Reclining in bed. Not very keen on hospital food friend visiting. Left family bring in some food, as discussed with limitations. No fever. On IV cefepime and vancomycin. Respiratory symptoms better. We will do nasal MRSA screen. February 07: Bit more short of breath with coughing overnight. Up in a chair. No fever. Remains on IV cefepime. On DuoNeb. Cultures remain negative. Active Medications Acetaminophen (Acetaminophen Tab 325 Mg Tab) 650 mg PO Q6HR PRN PRN Reason: Mild Pain or Fever > 100.5 Last Admin: 02/07/23 08:50 Dose: 650 mg Albuterol/Ipratropium (Ipratropium-Albuterol 3 Ml Neb) 3 ml INHALATION RT-QID [facility] Last Admin: 02/07/23 15:35 Dose: 3 ml Atorvastatin Calcium (Atorvastatin 10 Mg Tab) 10 mg PO W/SUPPER [facility] Last Admin: 02/06/23 18:27 Dose: 10 mg Benzonatate (Benzonatate 100 Mg Cap) 100 mg PO TID PRN PRN Reason: Cough Last Admin: 02/07/23 12:24 Dose: 100 mg Al Hydroxide/Mg Hydroxide 30 ml/ Diphenhydramine HCl 75 mg/Lidocaine HCl 30 ml 0 ml PO TID [facility] Last Admin: 02/07/23 16:11 Dose: 5 ml Docusate Sodium (Docusate 100 Mg Cap) 100 mg PO BID [facility] Last Admin: 02/07/23 12:24 Dose: 100 mg Sodium Chloride (Saline 0.9%) 1,000 mls @ 50 mls/hr IV .Q20H [facility] Last Admin: 02/07/23 16:16 Dose: 50 mls/hr Cefepime HCl 2 gm/ Sodium (Chloride) 100 mls @ 25 mls/hr IVPB Q8HR [facility]; Protocol Last Admin: 02/07/23 16:06 Dose: 25 mls/hr Latanoprost (Latanoprost 0.005% Ophth Drops 2.5 Ml Btl) 1 drops BOTH EYES HS [facility] Last Admin: 02/06/23 21:18 Dose: 1 drops Naloxone HCl (Naloxone 0.4 Mg/Ml 1 Ml Vial) 0.2 mg IV Q2M PRN PRN Reason: Opioid Reversal Ondansetron HCl (Ondansetron 4 Mg/2 Ml Vial) 4 mg IVP Q8HR PRN PRN Reason: Nausea And Vomiting Ondansetron HCl (Ondansetron Odt 4 Mg Tab) 4 mg PO Q4H PRN PRN Reason: Nausea And Vomiting Pantoprazole Sodium (Pantoprazole 40 Mg Tablet) 40 mg PO DAILY [facility] Last Admin: 02/07/23 08:44 Dose: 40 mg Prednisone (Prednisone 10 Mg Tab) 30 mg PO DAILY [facility] Last Admin: 02/07/23 08:44 Dose: 30 mg Past medical history to include: COPD, hyperlipidemia, breast cancer triple negative currently undergoing treatment Social history: Lives alone. Stop smoking around 1999. Smoked for about 31 years. No alcohol Physical examination: VITAL SIGNS: 98.1, 120, 17, 15 May 81, 94% on 2.5 L GENERAL: Up in a chair, but tired EYES: Pupils equal. Conjunctiva normal. HEENT: External appearance of nose and ears normal, oral cavity white spots in the r pharynx. NECK: JVD not raised; masses not palpable. HEART: First and second heart sounds are normal; no edema. LUNGS:[ Respiratory rate increased, diminished breath sounds , ABDOMEN: Soft, nontender, liver spleen not palpable, no masses palpable. PSYCH: [Alert and oriented x3; mood and affect normal. MUSCULOSKELETAL:No Clubbing/cyanosis;muscles-grossly intact. Evidence of OA INVESTIGATIONS, reviewed in the clinical context: February 07: WBC 10.3 hemoglobin 11.6 platelets 108 COVID 19: Not detected February 06: WBC 2.1 hemoglobin 10.7 platelets 81 pro calcitonin 0.15 February 05: White count 0.7 hemoglobin 11.1 platelets 76 neutrophils 0.4 February 04: White count 0.6 hemoglobin 13.1 platelets 96 sodium 133 potassium 4.2 BUN 20 creatinine 0.86 UA: Negative for nitrite leukoesterase. EKG tracing personally reviewed by me-normal sinus rhythm. Rate 106 CT brain without contrast: Mild central cerebral atrophy. Moderate burden of chronic small vessel ischemic disease. CT angiogram chest: No evidence of PE. Emphysema changes. Assessment and plan: -Sepsis picture in a patient status post first dose of chemotherapy. Patient's UA is benign. Had some more shortness breath. This could be from tumor lysis/pneumonia.: Better Empirically patient on IVs cefepime and vancomycin. Blood culture N now -Suspect pneumonia, gram-negative organism, POA IV cefepime and vancomycin. Check MRSA nasal screen. -Acute COPD exacerbation in a ex-smoker: Some worsening DuoNeb, oral steroids. Add Pulmicort nebulizer 1 mg twice a day -Pancytopenia secondary to chemotherapy: Better -Hyperlipidemia Lipitor 10 mg with supper -Breast cancer stage I, triple negative. Has received first dose of chemotherapy. Being followed by Dr. Garber from oncology. -Full code Continue IV antibiotics. Discussed. With The patient. Other medications to continue. Add Pulmicort nebulized
[2023-02-07] MEDS: ATORVASTATIN 10 MG TAB PO SCH (17:37)
--- NOTE | 2023-02-07 17:59 | XR ---
EXAMINATION TYPE: XR chest 2V DATE OF EXAM: 02/07/2023 COMPARISON: 02/04/2023 HISTORY: Shortness of breath. TECHNIQUE: Frontal and lateral views of the chest are obtained. FINDINGS: There is no focal air space opacity, pleural effusion, or pneumothorax seen. The cardiac silhouette size is within normal limits. The pulmonary vasculature is not congested. There is hyperinflation lungs and flattening the diaphragms consistent with COPD There is a Mediport catheter on the left tip of which is in the SVC/R junction. The osseous structures are intact. There are multiple surgical clips in the right breast. IMPRESSION: No acute cardiopulmonary process. COPD.
--- NOTE | 2023-02-07 18:14 | P.PN ---
Subjective Progress Note Date: 02/07/23 Principal diagnosis: neutropenic fever At today's visit patient is resting comfortably in bedside chair. She is reporting increasing shortness of breath since last night with associated nonproductive cough. Patient also reports upper back pain worsened with cough. Patient remains afebrile, SPO2 96% on 2 L. She was transitioned to soft chopped diet last night and tolerated dinner well, however reports this morning due to cough and discomfort she did not feel like eating. Tessalon ordered prn for cough. Denies abdominal pain. Denies nausea vomiting diarrhea. Patient reports last BM was 3 days ago, colace added. WBC has significantly improved, 10.3, ANC 8.9. Objective - Vital Signs Vital signs: Vital Signs Temp 97.9 F 02/07/23 07:35 Pulse 104 H 02/07/23 08:37 Resp 14 02/07/23 07:35 BP 165/68 02/07/23 07:35 Pulse Ox 96 02/07/23 08:23 FiO2 Intake & Output 02/06/23 02/07/23 02/07/23 18:59 06:59 18:59 Other: Voiding Method Toilet Toilet Bedside Commode # Voids 1 4 - Constitutional General appearance: Present: average body habitus, no acute distress - EENT Eyes: Present: anicteric sclerae, EOMI ENT: Present: hearing grossly normal - Respiratory Details: breathing even and unlabored Respiratory: bilateral: CTA - Cardiovascular Rhythm: regular Heart sounds: normal: S1, S2 Abnormal Heart Sounds: Absent: systolic murmur, diastolic murmur, rub, S3 Gallop, S4 Gallop, click, other - Peripheral edema leg Peripheral Edema: bilateral: None - Integumentary Integumentary: Absent: cyanotic, jaundiced - Musculoskeletal Musculoskeletal: Present: strength equal bilaterally - Psychiatric Psychiatric: Present: A&O x's 3, appropriate affect, intact judgment & insight - Labs CBC & Chem 7: 02/07/23 10:30 02/07/23 10:30 Labs: Microbiology - Last 24 Hours (Table) 02/04/23 12:40 Blood Culture - Preliminary Blood 02/04/23 12:55 Blood Culture - Preliminary Blood Assessment and Plan (1) Dehydration Current Visit: Yes Status: Acute Priority: High Code(s): E86.0 - DEHYDRATION SNOMED Code(s): 44381909 (2) Neutropenia Current Visit: Yes Status: Acute Priority: High Code(s): D70.9 - NEUTROPENIA, UNSPECIFIED SNOMED Code(s): 948655358 (3) Breast cancer Current Visit: Yes Status: Acute Priority: High Code(s): C50.919 - MALIGNANT NEOPLASM OF UNSP SITE OF UNSPECIFIED FEMALE BREAST SNOMED Code(s): 763171370 Plan: Neutropenic fever: -WBC significantly improved, 10.3 today, ANC 8,900. Patient completed cycle 1 of Adriamycin and Cytoxan with neulasta on 01/28/23. -Tmax 101.8, remains afebirle x 72 hrs. -Infectious workup negative thus far. Blood cultures negative at 48 hrs. MRSA nasal swab pending. Stool culture uncollected, reports she has not had a BM since admission 3 days ago. Colace added -Repeat chest x-ray today revealed no acute cardiopulmonary processes. COPD noted -Tolerated full liquid diet, transitioned to chopped soft diet. Tolerated well last night, due to cough and discomfort today did not eat breakfast -Continues on empiric abx Vanco and cefepime. ID following -KOOLs solution ordered for mucositis Breast cancer: -S/p right lumpectomy with sentinel node biopsy on 12/21/22. 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 -Completed cycle 1 of Adriamycin and Cytoxan with neulasta on 01/28/23 -May have to delay next cycle by 1 week, pending recovery of acute condition. Plan to dose reduce adriamycin for next cycle by 10% -F/u scheduled with Dr. Garber on 02/12
[2023-02-07] MEDS: LATANOPROST 0.005% OPHTH DROPS 2.5 ML BTL BOTH EYES SCH (22:32)
[2023-02-08] MEDS: CEFEPIME 2 GM in SODIUM CHLORIDE 0.9% 100 ML IVPB SCH ×3 (00:16→15:54)
[2023-02-08] MEDS: BENZONATATE 100 MG CAP PO PRN (00:59)
[2023-02-08] MEDS: IPRATROPIUM-ALBUTEROL 3 ML NEB INHALATION SCH ×5 (07:48→23:23)
[2023-02-08] MEDS: BUDESONIDE 1 MG/2 ML NEBU INHALATION SCH ×2 (07:48→19:45)
[2023-02-08] MEDS: PANTOPRAZOLE 40 MG TABLET PO SCH (08:15)
[2023-02-08] MEDS: predniSONE 10 MG TAB PO SCH (08:15)
[2023-02-08] MEDS: DOCUSATE 100 MG CAP PO SCH ×2 (08:15→21:09)
[2023-02-08] MEDS: MAG HYDROX/AL HYDROX/SIMETH 30 ML, diphenhydrAMINE ELIXIR 75 MG, LIDOCAINE VISCOUS 2% 3... PO SCH ×9 (08:16→21:10)
[2023-02-08] MEDS: FORMOTEROL FUMARATE 20 MCG/2 ML NEBU INHALATION SCH ×2 (11:38→19:45)
[2023-02-08] MEDS: NYSTATIN 100,000 UNIT/ML SUSP 500,000 UNIT/5 ML CUP PO SCH ×3 (14:23→21:10)
--- NOTE | 2023-02-08 15:07 | P.PN ---
Subjective Progress Note Date: 02/08/23 Principal diagnosis: Neutropenia, COPD exacerbation. On treatment for breast cancer In follow-up patient reports increase in cough, expectorating thick, yellow sputum, denies fever, shortness of breath, chest pain. She is tolerating oral intake. She is getting back and forth to the bathroom. Objective - Vital Signs Vital signs: Vital Signs Temp 99.0 F 02/08/23 07:13 Pulse 100 02/08/23 11:47 Resp 19 02/08/23 07:13 BP 167/74 02/08/23 07:13 Pulse Ox 98 02/08/23 07:13 FiO2 Intake & Output 02/07/23 02/08/23 02/08/23 18:59 06:59 18:59 Intake Total 800 Balance 800 Intake: Intake, IV Titration 800 Amount Cefepime 2 gm In Sodium 200 Chloride 0.9% 100 ml @ 25 mls/hr IVPB Q8HR [facility] Rx# :[id number] Sodium Chloride 0.9% 1, 600 000 ml @ 50 mls/hr IV . Q20H [facility] Rx#:[id number] Other: Voiding Method Toilet Bedside Commode # Voids 1 - Constitutional General appearance: Present: average body habitus, cooperative, mild distress - EENT Eyes: Present: anicteric sclerae, EOMI ENT: Present: hearing grossly normal, thrush - Respiratory Respiratory: bilateral: rhonchi, wheezing - Cardiovascular Rhythm: regular Heart sounds: normal: S1, S2 Abnormal Heart Sounds: Absent: systolic murmur, diastolic murmur, rub, S3 Gallop, S4 Gallop, click, other - Peripheral edema leg Peripheral Edema: bilateral: None - Gastrointestinal General gastrointestinal: Present: normal bowel sounds, soft - Integumentary Integumentary: Present: normal - Neurologic Neurologic: Present: CNII-XII intact - Musculoskeletal Musculoskeletal: Present: strength equal bilaterally - Psychiatric Psychiatric: Present: A&O x's 3, appropriate affect, intact judgment & insight - Labs CBC & Chem 7: 02/07/23 10:30 02/07/23 10:30 Labs: Abnormal Lab Results - Last 24 Hours (Table) 02/07/23 Range/Units 10:30 Neutrophils # (Manual) 8.90 H (1.3-7.7) k/uL Lymphocytes # (Manual) 0.52 L (1.0-4.8) k/uL Metamyelocytes # (Man) 0.21 H (0) k/uL Myelocytes # (Manual) 0.21 H (0) k/uL Microbiology - Last 24 Hours (Table) 02/04/23 12:40 Blood Culture - Preliminary Blood 02/04/23 12:55 Blood Culture - Preliminary Blood 02/06/23 18:07 Nasal Screen MRSA/MSSA - Final Nasal Swab - Imaging and Cardiology Chest x-ray: report reviewed Assessment and Plan (1) Febrile neutropenia Current Visit: Yes Status: Resolved Priority: High Code(s): D70.9 - NEUTROPENIA, UNSPECIFIED; R50.81 - FEVER PRESENTING WITH CONDITIONS CLASSIFIED ELSEWHERE SNOMED Code(s): 686354337 (2) COPD exacerbation Current Visit: Yes Status: Acute Priority: High Code(s): J44.1 - CHRONIC OBSTRUCTIVE PULMONARY DISEASE W (ACUTE) EXACERBATION SNOMED Code(s): 576818522 (3) Breast cancer Current Visit: Yes Status: Acute Priority: Medium Code(s): C50.919 - MALIGNANT NEOPLASM OF UNSP SITE OF UNSPECIFIED FEMALE BREAST SNOMED Code(s): 249240273 (4) Breast cancer, right Current Visit: Yes Status: Acute Priority: Medium Code(s): C50.911 - MALIGNANT NEOPLASM OF UNSP SITE OF RIGHT FEMALE BREAST SNOMED Code(s): 304500799 Plan: Febrile neutropenia -Neutropenia secondary to chemotherapy -Patient did receive G-CSF as part of her regimen on 01/29. Patient's WBC/ANC noted to begin recovery at day 8. -Patient has not had a fever for greater than 48 hours, ANC is 8.9, blood cultures negative at 48 hours. Resolved COPD exacerbation -Patient has history of the same. Low counts contribute to the exacerbation. -Patient is on supportive medications including respiratory treatments and antibiotics. Patient is being followed by Infectious Disease and Pulmonary. -Cont treatment for the same Oral thrush -Multifactorial including neutropenia, inhaled respiratory treatments -Nystatin suspension ordered -Oral care ordered Breast cancer -Patient is status post 1/4 cycles of AC with GCSF -Treatment will be delayed until adequate recovery from her current condition. -Orders sent for dose reduction on anthracycline -G-CSF will continue post-treatment attests: I have seen and examined patient, performed H&P, developed impression and plan of care. Discussed with dictator. Agree with documentation, dictated as a scribe.
[2023-02-08] MEDS: SODIUM CHLORIDE 0.9% 1,000 ML IV SCH (15:34)
--- NOTE | 2023-02-08 16:09 | P.PN ---
Subjective Progress Note Date: 02/08/23 On today's evaluation of 02/08/2023, the patient is reporting cough and sputum. No reported fever or chills. She is afebrile. She is hemodynamically stable. She is currently on room air oxygen with a pulse ox of 91%. The chest x-ray was done yesterday shows no acute cardiac pulmonary process, there was no evidence of any pulmonary embolism. There is left anterior chest wall port with catheter tip in the lower SVC. No lymphadenopathy. Mild diffuse bronchial wall thickening and mild emphysema is seen in the background. The blood work from today shows edematous count 0.3 with a hemoglobin of 11.6 and the patient has recovered from an underlying neutropenia. The patient is on IV cefepime. The patient is on prednisone 30 mg this part of burst taper. She denied a was normal sed rate of 50 mL an hour. The cultures are negative. Objective - Vital Signs Vital signs: Vital Signs Temp 98.4 F 02/08/23 12:14 Pulse 112 H 02/08/23 16:04 Resp 19 02/08/23 12:14 BP 145/69 02/08/23 12:14 Pulse Ox 91 L 02/08/23 12:14 FiO2 Intake & Output 02/07/23 02/08/23 02/08/23 18:59 06:59 18:59 Intake Total 800 Balance 800 Intake: Intake, IV Titration 800 Amount Cefepime 2 gm In Sodium 200 Chloride 0.9% 100 ml @ 25 mls/hr IVPB Q8HR [facility] Rx# :[id number] Sodium Chloride 0.9% 1, 600 000 ml @ 50 mls/hr IV . Q20H [facility] Rx#:[id number] Other: Voiding Method Toilet Bedside Commode # Voids 1 - Exam GENERAL EXAM: Alert, 72-year-old female, sitting in a chair, on 2 L nasal ca nnula, comfortable in no apparent distress. HEAD: Normocephalic. EYES: Normal reaction of pupils, equal size. NOSE: Clear with pink turbinates. THROAT: No erythema or exudates. NECK: No masses, no JVD. CHEST: No chest wall deformity. Left MediPort in place. LUNGS: Equal air entry with few scattered rhonchi, end expiratory wheeze. CVS: S1 and S2 normal with no audible murmur, regular rhythm. ABDOMEN: No hepatosplenomegaly, normal bowel sounds, no guarding or rigidity. SPINE: No scoliosis or deformity SKIN: No rashes CENTRAL NERVOUS SYSTEM: No focal deficits, tone is normal in all 4 extremities. EXTREMITIES: There is no peripheral edema. No clubbing, no cyanosis. Peripheral pulses are intact. - Labs CBC & Chem 7: 02/07/23 10:30 02/07/23 10:30 Labs: Microbiology - Last 24 Hours (Table) 02/04/23 12:40 Blood Culture - Preliminary Blood 02/04/23 12:55 Blood Culture - Preliminary Blood 02/06/23 18:07 Nasal Screen MRSA/MSSA - Final Nasal Swab Assessment and Plan Plan: Neutropenic fever, recovered and the patient is currently afebrile. Cultures are negative. Neutropenia has recovered and the patient has normal white cell count for the time being. COPD with an FEV1 of 30% of predicted Acute COPD exacerbation, currently on bronchodilators and steroids History of breast cancer undergoing systemic chemotherapy Generalized weakness and dehydration and lightheadedness and frequent falls related to systemic chemo, improved Hyperlipidemia Acid reflux Plan Continue same treatment. The white cell count is improving. Continue bronchodilators. Prednisone burst taper. IV cefepime. Cultures are negative. Will follow.
--- NOTE | 2023-02-08 16:51 | CDI ---
Documentation Clarification Form Date: 02/08/2023 04:27:21 PM From: Fauzia Bae RN, CCDS Admit Date: 02/04/2023 08:24:00 AM Patient Name: Adeline Johansen Visit Number: [id number] Discharge Date: ATTENTION: The Clinical Documentation Specialists (CDI) and [facility] Coding Staff appreciate your assistance in clarifying documentation. Please respond to the clarification below the line at the bottom and electronically sign. The CDI & [facility] Coding staff will review the response and follow-up if needed. Please note: Queries are made part of the Legal Health Record. If you have any questions, please contact the author of this message via ITS. Dr. Deonte Nolen The patient has Sepsis picture documented in the H/P and subsequent progress notes. Based on this information and the findings below, is there an additional diagnosis that is clinically appropriate for this patient? 02/04 ID: patient presented hospital with febrile neutropenia in this patient with recent diagnosis of breast cancer has received her first cycle of chemotherapy about a week ago now presenting with weakness did have predominantly GI symptoms especially diarrhea and did have some sores in the mouth CT of the chest was negative for any pneumonia urine was negative no evidence of any cellulitis at the [facility] site. History/Risk Factors: COPD, hyperlipidemia, breast cancer stage I. triple negative currently undergoing treatment, former smoker Clinical Indicators: 72-year-old female presents for evaluation of severe weakness lightheadedness dizziness multiple falls. Received her first chemotherapy. Patient does have a congested cough. 02/04 VS: 122/67 103 20 98.8 98% RA EKG is sinus tachycardia 106 02/04 -CT brain, negative for intracranial hemorrhage or mass effect 02/04 CT scan: with the chest negative for pulmonary embolism. COPD with mild Emphysema. No acute process seen. 02/04 Labs WBC 0.6 Plt 96 Na+ 133, Cl 31 Procalcitonin 0.19 Covid NEGATIVE 02/04 Blood cultures Pending, No growth after 72 hours Treatment: .9NS 500 ML Bolus X 2 02/04 Cefepime HCL 2 GM IVPB Q 12/HR 02/04-02/06 Cefepime HCL 2 GM IVPB Q 8 HRS 02/06-02/08 Vancomycin 1,250 MG IVPB Once then Q 18 HR (PTD) 02/04-02/07 Is there an additional diagnosis that is clinically appropriate for this patient? [ + ] Sepsis, present on admission (further specify infection source) [ ] Sepsis ruled out [ ] Other, please specify [ ] Unable to determine SIRS Criteria: 2 or more of the following may indicate SIRS Temperature < 96.8F (36C) or > 101.0F (38.3C) Heart Rate > 90 bpm Respiratory Rate > 20 breaths/min or PaCO2 < 32 mmHg White Blood Cell Count > 12,000 or < 4,000 cells/mm3 or > 10% bands (Template Last Reviewed: May 2022) MTDD
[2023-02-08] MEDS: ATORVASTATIN 10 MG TAB PO SCH (17:28)
--- NOTE | 2023-02-08 17:42 | P.PN ---
Progress Note - Text Progress Note Date: 02/08/23 Chief Complaint: Tired Very pleasant 72-year-old patient, follows with Dr. Mohan. Sl[employer] Dr. Parker. Oncologist Dr. Garber. Patient has been diagnosed with breast cancer. Stage I. Triple negative. Posterior lymph nodes. Received her first chemotherapy. Patient thereafter started feeling increasingly tired. The point she fell down yesterday. Has been having diarrhea. A few a day. No blood. No abdominal pain. Has been feeling cold. Did spike a fever in the ER. Decreased appetite. Tired rundown. Had a baseline patient does have a congested cough. Patient has noted urine increased urinary frequency. Has been a bit more short of breath right now. On January 29 patient received G-CSF February 05: Tired. Short of breath. Some clear sputum. On IV cefepime and vancomycin. Cultures negative throughout. Did tolerate some diet. February 06: Reclining in bed. Not very keen on hospital food friend visiting. Left family bring in some food, as discussed with limitations. No fever. On IV cefepime and vancomycin. Respiratory symptoms better. We will do nasal MRSA screen. February 07: Bit more short of breath with coughing overnight. Up in a chair. No fever. Remains on IV cefepime. On DuoNeb. Cultures remain negative. February 08: Decreased appetite. More short of breath. Clear sputum. MRSA screen nasal culture negative. Vancomycin discontinued. We will increase DuoNeb every 4. Add Perforomist. Blood cultures negative. Active Medications Acetaminophen (Acetaminophen Tab 325 Mg Tab) 650 mg PO Q6HR PRN PRN Reason: Mild Pain or Fever > 100.5 Last Admin: 02/07/23 08:50 Dose: 650 mg Albuterol/Ipratropium (Ipratropium-Albuterol 3 Ml Neb) 3 ml INHALATION RT-Q4H [facility] Last Admin: 02/08/23 15:47 Dose: 3 ml Atorvastatin Calcium (Atorvastatin 10 Mg Tab) 10 mg PO W/SUPPER [facility] Last Admin: 02/08/23 17:28 Dose: 10 mg Benzonatate (Benzonatate 100 Mg Cap) 100 mg PO TID PRN PRN Reason: Cough Last Admin: 02/08/23 00:59 Dose: 100 mg Budesonide (Budesonide 1 Mg/2 Ml Nebu) 1 mg INHALATION RT-BID [facility] Last Admin: 02/08/23 07:48 Dose: 1 mg Al Hydroxide/Mg Hydroxide 30 ml/ Diphenhydramine HCl 75 mg/Lidocaine HCl 30 ml 0 ml PO TID [facility] Last Admin: 02/08/23 15:55 Dose: 5 ml Docusate Sodium (Docusate 100 Mg Cap) 100 mg PO BID [facility] Last Admin: 02/08/23 08:15 Dose: 100 mg Formoterol Fumarate (Formoterol Fumarate 20 Mcg/2 Ml Nebu) 20 mcg INHALATION RT-BID [facility] Last Admin: 02/08/23 11:38 Dose: Not Given Sodium Chloride (Saline 0.9%) 1,000 mls @ 50 mls/hr IV .Q20H [facility] Last Admin: 02/08/23 15:34 Dose: 50 mls/hr Cefepime HCl 2 gm/ Sodium (Chloride) 100 mls @ 25 mls/hr IVPB Q8HR [facility]; Protocol Last Admin: 02/08/23 15:54 Dose: 25 mls/hr Latanoprost (Latanoprost 0.005% Ophth Drops 2.5 Ml Btl) 1 drops BOTH EYES HS [facility] Last Admin: 02/07/23 22:32 Dose: 1 drops Naloxone HCl (Naloxone 0.4 Mg/Ml 1 Ml Vial) 0.2 mg IV Q2M PRN PRN Reason: Opioid Reversal Nystatin (Nystatin 100,000 Unit/Ml Susp 500,000 Unit/5 Ml Cup) 500,000 unit PO QID [facility]; Protocol Last Admin: 02/08/23 17:29 Dose: Not Given Ondansetron HCl (Ondansetron 4 Mg/2 Ml Vial) 4 mg IVP Q8HR PRN PRN Reason: Nausea And Vomiting Ondansetron HCl (Ondansetron Odt 4 Mg Tab) 4 mg PO Q4H PRN PRN Reason: Nausea And Vomiting Pantoprazole Sodium (Pantoprazole 40 Mg Tablet) 40 mg PO DAILY [facility] Last Admin: 02/08/23 08:15 Dose: 40 mg Prednisone (Prednisone 10 Mg Tab) 30 mg PO DAILY [facility] Last Admin: 02/08/23 08:15 Dose: 30 mg Past medical history to include: COPD, hyperlipidemia, breast cancer triple negative currently undergoing treatment Social history: Lives alone. Stop smoking around 1999. Smoked for about 31 years. No alcohol Physical examination: VITAL SIGNS: 98.4, 112, 19, 145/69, 91% room air GENERAL: Up in a chair, but tired, short of breath EYES: Pupils equal. Conjunctiva normal. HEENT: External appearance of nose and ears normal, oral cavity white spots in the r pharynx. NECK: JVD not raised; masses not palpable. HEART: First and second heart sounds are normal; no edema. LUNGS:[ Respiratory rate increased, diminished breath sounds , wheezing prolonged expiration, ABDOMEN: Soft, nontender, liver spleen not palpable, no masses palpable. PSYCH: [Alert and oriented x3; mood and affect anxious MUSCULOSKELETAL:No Clubbing/cyanosis;muscles-grossly intact. Evidence of OA INVESTIGATIONS, reviewed in the clinical context: Nasal screen MRSA: Negative February 07: WBC 10.3 hemoglobin 11.6 platelets 108 COVID 19: Not detected February 06: WBC 2.1 hemoglobin 10.7 platelets 81 pro calcitonin 0.15 February 05: White count 0.7 hemoglobin 11.1 platelets 76 neutrophils 0.4 February 04: White count 0.6 hemoglobin 13.1 platelets 96 sodium 133 potassium 4.2 BUN 20 creatinine 0.86 UA: Negative for nitrite leukoesterase. EKG tracing personally reviewed by me-normal sinus rhythm. Rate 106 CT brain without contrast: Mild central cerebral atrophy. Moderate burden of chronic small vessel ischemic disease. CT angiogram chest: No evidence of PE. Emphysema changes. Assessment and plan: -Sepsis picture in a patient status post first dose of chemotherapy. Patient's UA is benign. Had some more shortness breath. This could be from tumor lysis/pneumonia.: Better Empirically patient on IVs cefepime . Blood culture negative Vancomycin discontinued. -Suspect pneumonia, gram-negative organism, POA IV cefepime MRSA nasal screen-negative. Vancomycin discontinued.. -Acute COPD exacerbation in a ex-smoker: worsening Increase DuoNeb to every 4., Prednisone 30 mg. Pulmicort nebulizer 1 mg twice a day Add Perforomist twice a day -Pancytopenia secondary to chemotherapy: Better Received G-CSF on January 29 -Hyperlipidemia Lipitor 10 mg with supper -Breast cancer-, triple negative. Has received 2/4 cycles of AC. Being followed by Dr. Garber from oncology. -Full code IV cefepime. Increase DuoNeb to every 4. Perforomist added. Discussed. Patient not ready for discharge.
--- NOTE | 2023-02-08 18:07 | P.PN ---
Subjective Progress Note Date: 02/08/23 Principal diagnosis: Febrile Neutropenia Patient is a 72-year-old female with a past medical history significant for COPD breast cancer for the patient recently did get Mediport placement and completed her first chemotherapy cycle on 01/28/2023 patient now presenting to the [facility] ER complains of generalized weakness dizziness and near syncopal episode, patient did have a fever and low white count. On today's evaluation that is 02/08/2023, the patient remains to be afebrile, the patient is complaining of shortness of breath and is currently on the daily his current oxygen, the patient denies having any chest pain patient coming of cough and bring up some sputum, the patient denies nausea and vomiting no abdominal pain and no diarrhea Patient hemoglobin 11.6, the patient white count normal at 10.3, creatinine 0.66 as of yesterday no blood work was done today, chest x-ray was negative for any pneumonia COVID testing was negative procalcitonin 0.19 blood cultures so far negative Objective - Vital Signs Vital signs: Vital Signs Temp 98.4 F 02/08/23 12:14 Pulse 124 H 02/08/23 12:14 Resp 19 02/08/23 12:14 BP 145/69 02/08/23 12:14 Pulse Ox 91 L 02/08/23 12:14 FiO2 Intake & Output 02/07/23 02/08/23 02/08/23 18:59 06:59 18:59 Intake Total 800 Balance 800 Intake: Intake, IV Titration 800 Amount Cefepime 2 gm In Sodium 200 Chloride 0.9% 100 ml @ 25 mls/hr IVPB Q8HR [facility] Rx# :[id number] Sodium Chloride 0.9% 1, 600 000 ml @ 50 mls/hr IV . Q20H [facility] Rx#:[id number] Other: Voiding Method Toilet Bedside Commode # Voids 1 - Exam GENERAL DESCRIPTION: Elderly female lying in bed in no distress RESPIRATORY SYSTEM: Unlabored breathing , decreased breath sounds at bases HEART: S1 S2 regular rate and rhythm ,no loud murmurs ABDOMEN: Soft , no tenderness EXTREMITIES: No edema feet - Labs CBC & Chem 7: 02/07/23 10:30 02/07/23 10:30 Labs: Abnormal Lab Results - Last 24 Hours (Table) 02/07/23 Range/Units 10:30 Neutrophils # (Manual) 8.90 H (1.3-7.7) k/uL Lymphocytes # (Manual) 0.52 L (1.0-4.8) k/uL Metamyelocytes # (Man) 0.21 H (0) k/uL Myelocytes # (Manual) 0.21 H (0) k/uL Microbiology - Last 24 Hours (Table) 02/04/23 12:40 Blood Culture - Preliminary Blood 02/04/23 12:55 Blood Culture - Preliminary Blood 02/06/23 18:07 Nasal Screen MRSA/MSSA - Final Nasal Swab Assessment and Plan (1) Febrile neutropenia Current Visit: Yes Status: Resolved Priority: High Code(s): D70.9 - NEUTROPENIA, UNSPECIFIED; R50.81 - FEVER PRESENTING WITH CONDITIONS CLASSIFIED ELSEWHERE SNOMED Code(s): 449657898 Plan: 1patient presented hospital with febrile neutropenia in this patient with recent diagnosis of breast cancer has received her first cycle of chemotherapy about a week ago now presenting with weakness did have predominantly GI symptoms especially diarrhea and did have some sores in the mouth CT of the chest was negative for any pneumonia urine was negative no evidence of any cellulitis at the [facility] site 2the patient blood cultures are negative and the patient white count has normalized, fever has resolved 3patient to continue with cefepime obtain sputum for Gram stain and culture and monitor clinical course closely Dictation was produced using [employer] dictation software. please excuse any grammatical, word or spelling errors. Time with Patient: Less than 30
[2023-02-08] MEDS: LATANOPROST 0.005% OPHTH DROPS 2.5 ML BTL BOTH EYES SCH (21:10)
[2023-02-09] MEDS: CEFEPIME 2 GM in SODIUM CHLORIDE 0.9% 100 ML IVPB SCH ×3 (00:19→17:09)
[2023-02-09] MEDS: SODIUM CHLORIDE 0.9% 1,000 ML IV SCH (00:20)
[2023-02-09] MEDS: IPRATROPIUM-ALBUTEROL 3 ML NEB INHALATION SCH ×5 (06:31→19:55)
[2023-02-09] MEDS: BUDESONIDE 1 MG/2 ML NEBU INHALATION SCH ×2 (08:51→19:56)
[2023-02-09] MEDS: FORMOTEROL FUMARATE 20 MCG/2 ML NEBU INHALATION SCH ×2 (08:51→19:56)
[2023-02-09] MEDS: predniSONE 10 MG TAB PO SCH (09:55)
[2023-02-09] MEDS: MAG HYDROX/AL HYDROX/SIMETH 30 ML, diphenhydrAMINE ELIXIR 75 MG, LIDOCAINE VISCOUS 2% 3... PO SCH ×9 (09:55→21:44)
[2023-02-09] MEDS: NYSTATIN 100,000 UNIT/ML SUSP 500,000 UNIT/5 ML CUP PO SCH ×4 (09:55→21:44)
[2023-02-09] MEDS: DOCUSATE 100 MG CAP PO SCH ×2 (09:55→21:44)
[2023-02-09] MEDS: PANTOPRAZOLE 40 MG TABLET PO SCH (09:55)
[2023-02-09] MEDS: SENNOSIDES 8.6 MG TAB PO SCH ×2 (13:13→21:44)
--- NOTE | 2023-02-09 13:24 | P.PN ---
Subjective Progress Note Date: 02/09/23 Principal diagnosis: neutropenic fever At today's visit patient is resting comfortably in bedside chair. She reports improvement in breathing was asked still experiencing persistent productive cough with yellow sputum. Reports Tessalon is not helping cough. Patient remains afebrile, SPO2 93 on room air. Tolerating oral diet but reports decreased appetite. Denies nausea vomiting diarrhea. Patient reports last BM was 5 days ago, colace was added with no improvement. WBC has significantly improved, 10.3, ANC 8.9. Objective - Vital Signs Vital signs: Vital Signs Temp 97.9 F 02/09/23 12:13 Pulse 110 H 02/09/23 12:13 Resp 19 02/09/23 12:13 BP 155/76 02/09/23 12:13 Pulse Ox 93 L 02/09/23 12:13 FiO2 Intake & Output 02/08/23 02/09/23 02/09/23 18:59 06:59 18:59 Other: Voiding Method Toilet Bedside Commode # Voids 2 - Constitutional General appearance: Present: average body habitus, no acute distress - EENT Eyes: Present: anicteric sclerae, EOMI ENT: Present: hearing grossly normal - Respiratory Details: breathing is even and unlabored - Cardiovascular Details: skin warm and dry - Gastrointestinal General gastrointestinal: Present: soft - Integumentary Integumentary: Absent: cyanotic, jaundiced - Neurologic Neurologic Comment(s): ggrossly intact - Musculoskeletal Musculoskeletal: Present: strength equal bilaterally - Psychiatric Psychiatric: Present: A&O x's 3, appropriate affect, intact judgment & insight - Labs CBC & Chem 7: 02/07/23 10:30 02/07/23 10:30 Labs: Microbiology - Last 24 Hours (Table) 02/08/23 16:01 Gram Stain - Final Sputum Sputum Culture - Final - Imaging and Cardiology Chest x-ray: report reviewed CT scan - chest: report reviewed Assessment and Plan (1) Dehydration Current Visit: Yes Status: Acute Priority: High Code(s): E86.0 - DEHYDRATION SNOMED Code(s): 20597202 (2) Neutropenia Current Visit: Yes Status: Acute Priority: High Code(s): D70.9 - NEUTROPENIA, UNSPECIFIED SNOMED Code(s): 513783144 (3) Breast cancer Current Visit: Yes Status: Acute Priority: Medium Code(s): C50.919 - MALIGNANT NEOPLASM OF UNSP SITE OF UNSPECIFIED FEMALE BREAST SNOMED Code(s): 985506176 (4) COPD exacerbation Current Visit: Yes Status: Acute Priority: High Code(s): J44.1 - CHRONIC OBSTRUCTIVE PULMONARY DISEASE W (ACUTE) EXACERBATION SNOMED Code(s): 166993394 Plan: Febrile neutropenia -Neutropenia secondary to chemotherapy -Patient did receive G-CSF as part of her regimen on 01/29. Patient's WBC/ANC noted to begin recovery at day 8. -Patient has not had a fever for greater than 72 hours, ANC is 8.9, blood cultures thus far. MRSA nasal swab negative. Repeat CXR negative for acute processes COPD exacerbation -Patient has history of the same. Low counts contribute to the exacerbation. -Patient is on supportive medications including respiratory treatments and antibiotics. Patient is being followed by Infectious Disease and Pulmonary. -Cont treatment for the same Consitpation: -Last BM 5 days ago. -Colace was added without improvement. Will add senna bid -Encouraged increasing oral intake as tolerated Oral thrush -Multifactorial including neutropenia, inhaled respiratory treatments -Nystatin suspension ordered -Oral care ordered Breast cancer -Patient is status post 1/4 cycles of AC with GCSF -Treatment will be delayed until adequate recovery from her current condition. -Orders sent for dose reduction on anthracycline
[2023-02-09] MEDS ORDERED: FUROSEMIDE 10 MG/ML 2 ML VIAL IV STA (16:52)
[2023-02-09] MEDS: ATORVASTATIN 10 MG TAB PO SCH (17:09)
--- NOTE | 2023-02-09 17:36 | P.PN ---
Progress Note - Text Progress Note Date: 02/09/23 Chief Complaint: Tired Very pleasant 72-year-old patient, follows with Dr. Mohan. Brazing Machine Setter Dr. Parker. Oncologist Dr. Garber. Patient has been diagnosed with breast cancer. Stage I. Triple negative. Posterior lymph nodes. Received her first chemotherapy. Patient thereafter started feeling increasingly tired. The point she fell down yesterday. Has been having diarrhea. A few a day. No blood. No abdominal pain. Has been feeling cold. Did spike a fever in the ER. Decreased appetite. Tired rundown. Had a baseline patient does have a congested cough. Patient has noted urine increased urinary frequency. Has been a bit more short of breath right now. On January 29 patient received G-CSF February 05: Tired. Short of breath. Some clear sputum. On IV cefepime and vancomycin. Cultures negative throughout. Did tolerate some diet. February 06: Reclining in bed. Not very keen on hospital food friend visiting. Left family bring in some food, as discussed with limitations. No fever. On IV cefepime and vancomycin. Respiratory symptoms better. We will do nasal MRSA screen. February 07: Bit more short of breath with coughing overnight. Up in a chair. No fever. Remains on IV cefepime. On DuoNeb. Cultures remain negative. February 08: Decreased appetite. More short of breath. Clear sputum. MRSA screen nasal culture negative. Vancomycin discontinued. We will increase DuoNeb every 4. Add Perforomist. Blood cultures negative. February 09: Up in a chair. Some improvement in wheezing and short of breath. Eating little amounts. Some lower extremity edema. Cutback IV fluids. 1 dose of IV Lasix. Kiran wrap. Mouthwash with salt and warm water. Active Medications Acetaminophen (Acetaminophen Tab 325 Mg Tab) 650 mg PO Q6HR PRN PRN Reason: Mild Pain or Fever > 100.5 Last Admin: 02/07/23 08:50 Dose: 650 mg Albuterol/Ipratropium (Ipratropium-Albuterol 3 Ml Neb) 3 ml INHALATION RT-Q4H [facility] Last Admin: 02/09/23 15:33 Dose: 3 ml Atorvastatin Calcium (Atorvastatin 10 Mg Tab) 10 mg PO W/SUPPER [facility] Last Admin: 02/09/23 17:09 Dose: 10 mg Benzonatate (Benzonatate 100 Mg Cap) 100 mg PO TID PRN PRN Reason: Cough Last Admin: 02/08/23 00:59 Dose: 100 mg Budesonide (Budesonide 1 Mg/2 Ml Nebu) 1 mg INHALATION RT-BID [facility] Last Admin: 02/09/23 08:51 Dose: Not Given Al Hydroxide/Mg Hydroxide 30 ml/ Diphenhydramine HCl 75 mg/Lidocaine HCl 30 ml 0 ml PO TID [facility] Last Admin: 02/09/23 17:09 Dose: 5 ml Docusate Sodium (Docusate 100 Mg Cap) 100 mg PO BID [facility] Last Admin: 02/09/23 09:55 Dose: 100 mg Formoterol Fumarate (Formoterol Fumarate 20 Mcg/2 Ml Nebu) 20 mcg INHALATION RT-BID [facility] Last Admin: 02/09/23 08:51 Dose: Not Given Sodium Chloride (Saline 0.9%) 1,000 mls @ 50 mls/hr IV .Q20H [facility] Last Admin: 02/09/23 00:20 Dose: 50 mls/hr Cefepime HCl 2 gm/ Sodium (Chloride) 100 mls @ 25 mls/hr IVPB Q8HR [facility]; Protocol Last Admin: 02/09/23 17:09 Dose: 25 mls/hr Latanoprost (Latanoprost 0.005% Ophth Drops 2.5 Ml Btl) 1 drops BOTH EYES HS [facility] Last Admin: 02/08/23 21:10 Dose: 1 drops Naloxone HCl (Naloxone 0.4 Mg/Ml 1 Ml Vial) 0.2 mg IV Q2M PRN PRN Reason: Opioid Reversal Nystatin (Nystatin 100,000 Unit/Ml Susp 500,000 Unit/5 Ml Cup) 500,000 unit PO QID [facility]; Protocol Last Admin: 02/09/23 17:09 Dose: 500,000 unit Ondansetron HCl (Ondansetron 4 Mg/2 Ml Vial) 4 mg IVP Q8HR PRN PRN Reason: Nausea And Vomiting Ondansetron HCl (Ondansetron Odt 4 Mg Tab) 4 mg PO Q4H PRN PRN Reason: Nausea And Vomiting Pantoprazole Sodium (Pantoprazole 40 Mg Tablet) 40 mg PO DAILY [facility] Last Admin: 02/09/23 09:55 Dose: 40 mg Prednisone (Prednisone 10 Mg Tab) 30 mg PO DAILY [facility] Last Admin: 02/09/23 09:55 Dose: 30 mg Senna (Sennosides 8.6 Mg Tab) 8.6 mg PO BID [facility] Last Admin: 02/09/23 13:13 Dose: 8.6 mg Past medical history to include: COPD, hyperlipidemia, breast cancer triple negative currently undergoing treatment Social history: Lives alone. Stop smoking around 1999. Smoked for about 31 years. No alcohol Physical examination: VITAL SIGNS: 97.9, 110, 19, 155/76, 93% room air GENERAL: Up in a chair, tired, less short of breath EYES: Pupils equal. Conjunctiva normal. HEENT: External appearance of nose and ears normal, oral cavity white spots in the r pharynx. NECK: JVD not raised; masses not palpable. HEART: First and second heart sounds are normal; no edema. LUNGS:[ Respiratory rate increased, diminished breath sounds , ABDOMEN: Soft, nontender, liver spleen not palpable, no masses palpable. PSYCH: [Alert and oriented x3; mood and affect anxious MUSCULOSKELETAL:No Clubbing/cyanosis;muscles-grossly intact. Evidence of OA INVESTIGATIONS, reviewed in the clinical context: Nasal screen MRSA: Negative February 07: WBC 10.3 hemoglobin 11.6 platelets 108 COVID 19: Not detected February 06: WBC 2.1 hemoglobin 10.7 platelets 81 pro calcitonin 0.15 February 05: White count 0.7 hemoglobin 11.1 platelets 76 neutrophils 0.4 February 04: White count 0.6 hemoglobin 13.1 platelets 96 sodium 133 potassium 4.2 BUN 20 creatinine 0.86 UA: Negative for nitrite leukoesterase. EKG tracing personally reviewed by me-normal sinus rhythm. Rate 106 CT brain without contrast: Mild central cerebral atrophy. Moderate burden of chronic small vessel ischemic disease. CT angiogram chest: No evidence of PE. Emphysema changes. Assessment and plan: -Sepsis picture in a patient status post first dose of chemotherapy. Patient's UA is benign. Had some more shortness breath. This could be from tumor lysis/pneumonia.: Better Empirically patient on IVs cefepime . Blood culture negative Vancomycin discontinued. -Suspect pneumonia, gram-negative organism, POA IV cefepime MRSA nasal screen-negative. Vancomycin discontinued.. -Acute COPD exacerbation in a ex-smoker: Slow improvement DuoNeb to every 4., Prednisone 30 mg. Pulmicort nebulizer 1 mg twice a day Perforomist twice a day -Pancytopenia secondary to chemotherapy: Better Received G-CSF on January 29 -Hyperlipidemia Lipitor 10 mg with supper -Breast cancer-, triple negative. Has received 2/4 cycles of AC. Being followed by Dr. Garber from oncology. -Full code Continue current medications. More water with salt mouthwash. Kiran wrap. 1 dose of IV Lasix 20 mg..
--- NOTE | 2023-02-09 17:41 | P.PN ---
Subjective Progress Note Date: 02/09/23 Principal diagnosis: Febrile Neutropenia Patient is a 72-year-old female with a past medical history significant for COPD breast cancer for the patient recently did get Mediport placement and completed her first chemotherapy cycle on 01/28/2023 patient now presenting to the [facility] ER complains of generalized weakness dizziness and near syncopal episode, patient did have a fever and low white count. On today's evaluation that is 02/09/2023, the patient denies any fever or any chills, the patient is breathing comfortably on room air, the patient denies ch est pain still complaining of cough and sputum production, the patient denies nausea and vomiting no abdominal pain and no diarrhea has been reported Patient hemoglobin 11.6, the patient white count normal at 10.3, creatinine 0.66 as of 02/07/2023 no blood work was done today, chest x-ray was negative for any pneumonia COVID testing was negative procalcitonin 0.19 blood cultures so far negative Objective - Vital Signs Vital signs: Vital Signs Temp 97.9 F 02/09/23 12:13 Pulse 104 H 02/09/23 15:47 Resp 19 02/09/23 12:13 BP 155/76 02/09/23 12:13 Pulse Ox 93 L 02/09/23 12:13 FiO2 Intake & Output 02/08/23 02/09/23 02/09/23 18:59 06:59 18:59 Other: Voiding Method Toilet Bedside Commode # Voids 2 2 - Exam GENERAL DESCRIPTION: Elderly female lying in bed in no distress RESPIRATORY SYSTEM: Unlabored breathing , decreased breath sounds at bases HEART: S1 S2 regular rate and rhythm ,no loud murmurs ABDOMEN: Soft , no tenderness EXTREMITIES: No edema feet - Labs CBC & Chem 7: 02/07/23 10:30 02/07/23 10:30 Labs: Microbiology - Last 24 Hours (Table) 02/08/23 16:01 Gram Stain - Final Sputum Sputum Culture - Final Assessment and Plan (1) Febrile neutropenia Current Visit: Yes Status: Resolved Priority: High Code(s): D70.9 - NEUTROPENIA, UNSPECIFIED; R50.81 - FEVER PRESENTING WITH CONDITIONS CLASSIFIED ELSEWHERE SNOMED Code(s): 364713339 Plan: 1patient presented hospital with febrile neutropenia in this patient with recent diagnosis of breast cancer has received her first cycle of chemotherapy about a week ago now presenting with weakness did have predominantly GI symptoms especially diarrhea and did have some sores in the mouth CT of the chest was ne gative for any pneumonia urine was negative no evidence of any cellulitis at the [facility] site 2the patient blood cultures are negative and the patient white count has normalized, fever has resolved 3patient to continue with cefepime and will transition short course of oral antibiotic on discharge Dictation was produced using [employer] software. please excuse any grammatical, word or spelling errors.
[2023-02-09] MEDS: LATANOPROST 0.005% OPHTH DROPS 2.5 ML BTL BOTH EYES SCH (21:45)
[2023-02-10] MEDS: IPRATROPIUM-ALBUTEROL 3 ML NEB INHALATION SCH ×6 (00:03→20:50)
[2023-02-10] MEDS: CEFEPIME 2 GM in SODIUM CHLORIDE 0.9% 100 ML IVPB SCH ×3 (00:14→16:41)
[2023-02-10 05:15] LABS: African American GFR (CKD) >90 (>60 ml/min/1.73 sqM); Anion Gap 4 mmol/L; Blood Urea Nitrogen 10 mg/dL (7-17); Calcium 8.3 mg/dL (8.4-10.2); Carbon Dioxide 32 mmol/L (22-30); Chloride 96 mmol/L (98-107); Glucose 79 mg/dL (74-99); Non-African American GFR(CKD) 86 (>60 ml/min/1.73 sqM); Potassium 3.4 mmol/L (3.5-5.1); Sodium 132 mmol/L (137-145)
[2023-02-10 05:54] LABS: HCT 32.5 % (34.0-46.0); HGB 10.7 gm/dL (11.4-16.0); MCH 30.4 pg (25.0-35.0); MCV 92.1 fL (80.0-100.0); Mean Platelet Volume 8.4; Platelet Count 201 k/uL (150-450); RBC 3.53 m/uL (3.80-5.40); RDW 13.4 % (11.5-15.5)
[2023-02-10] MEDS: BUDESONIDE 1 MG/2 ML NEBU INHALATION SCH ×2 (07:48→20:53)
[2023-02-10] MEDS: FORMOTEROL FUMARATE 20 MCG/2 ML NEBU INHALATION SCH ×2 (07:48→20:53)
[2023-02-10 08:28] VITALS: RESP 16
[2023-02-10 09:05] LABS: Band Neutrophils % 3 %; Lymphocytes # (M) 1.33 k/uL (1.0-4.8); Metamyelocytes # (M) 0.27 k/uL (0); Metamyelocytes % 2 %; Myelocytes # (M) 0.27 k/uL (0); Myelocytes % 2 %; Neutrophils % (M) 80 %; Nucleated Red Blood Cells 1 /100 WBC (0-0); Total Cells Counted 200; WBC 13.3 k/uL (3.8-10.6)
[2023-02-10 09:08] LABS: RBC Morphology Normal
[2023-02-10] MEDS: PANTOPRAZOLE 40 MG TABLET PO SCH (09:12)
[2023-02-10] MEDS: NYSTATIN 100,000 UNIT/ML SUSP 500,000 UNIT/5 ML CUP PO SCH ×4 (09:12→22:19)
[2023-02-10] MEDS: predniSONE 10 MG TAB PO SCH (09:12)
[2023-02-10] MEDS: POTASSIUM CHLORIDE ER 20 MEQ TAB.ER PO SCH ×2 (09:12→10:29)
[2023-02-10] MEDS: DOCUSATE 100 MG CAP PO SCH ×2 (09:12→22:19)
[2023-02-10] MEDS: SENNOSIDES 8.6 MG TAB PO SCH ×2 (09:12→22:19)
[2023-02-10] MEDS: MAG HYDROX/AL HYDROX/SIMETH 30 ML, diphenhydrAMINE ELIXIR 75 MG, LIDOCAINE VISCOUS 2% 3... PO SCH ×9 (09:13→22:19)
[2023-02-10] MEDS ORDERED: MAGNESIUM HYDROXIDE 2,400 MG/30 ML CUP PO PRN (11:01)
[2023-02-10] MEDS ORDERED: MAGNESIUM HYDROXIDE 2,400 MG/30 ML CUP PO STA (11:01)
[2023-02-10 12:08] VITALS: BMI 24.3
--- NOTE | 2023-02-10 13:28 | P.PN ---
Subjective Progress Note Date: 02/10/23 Principal diagnosis: neutropenic fever At today's visit patient is resting comfortably in bedside chair. She reports improvement in breathing, still experiencing persistent productive cough with yellow sputum. Patient remains afebrile, SPO2 98% on 2L. Tolerating oral inatke but reports decreased appetite. Denies nausea vomiting diarrhea. Patient reports last BM was 6 days ago. WBC has significantly improved, 13.3, ANC 11.0 Objective - Vital Signs Vital signs: Vital Signs Temp 98.6 F 02/10/23 08:05 Pulse 100 02/10/23 11:40 Resp 16 02/10/23 08:05 BP 133/52 02/10/23 08:05 Pulse Ox 98 02/10/23 08:05 FiO2 Intake & Output 02/09/23 02/10/23 02/10/23 18:59 06:59 18:59 Output Total 400 Balance -400 Weight 64.41 kg Output: Urine 400 Other: Voiding Method Toilet Bedside Commode # Voids 2 2 1 - Constitutional General appearance: Present: average body habitus, no acute distress - EENT Eyes: Present: anicteric sclerae, EOMI ENT: Present: hearing grossly normal - Respiratory Details: breathing is even and unlabored - Cardiovascular Details: skin warm and dry - Integumentary Integumentary: Absent: cyanotic, jaundiced - Neurologic Neurologic Comment(s): grossly intact - Musculoskeletal Musculoskeletal: Present: strength equal bilaterally - Psychiatric Psychiatric: Present: A&O x's 3, appropriate affect, intact judgment & insight - Labs CBC & Chem 7: 02/10/23 04:11 02/10/23 04:11 Labs: Abnormal Lab Results - Last 24 Hours (Table) 02/10/23 02/10/23 Range/Units 04:11 04:11 WBC 13.3 H (3.8-10.6) k/uL RBC 3.53 L (3.80-5.40) m/uL Hgb 10.7 L (11.4-16.0) gm/dL Hct 32.5 L (34.0-46.0) % Neutrophils # (Manual) 11.00 H (1.3-7.7) k/uL Metamyelocytes # (Man) 0.27 H (0) k/uL Myelocytes # (Manual) 0.27 H (0) k/uL Nucleated RBCs 1 H (0-0) /100 WBC Sodium 132 L (137-145) mmol/L Potassium 3.4 L (3.5-5.1) mmol/L Chloride 96 L (98-107) mmol/L Carbon Dioxide 32 H (22-30) mmol/L Calcium 8.3 L (8.4-10.2) mg/dL Microbiology - Last 24 Hours (Table) 02/04/23 12:40 Blood Culture - Final Blood 02/04/23 12:55 Blood Culture - Final Blood Assessment and Plan (1) Dehydration Current Visit: Yes Status: Acute Priority: High Code(s): E86.0 - DEHYDRATION SNOMED Code(s): 95649133 (2) Neutropenia Current Visit: Yes Status: Acute Priority: High Code(s): D70.9 - NEUTROPENIA, UNSPECIFIED SNOMED Code(s): 605080110 (3) Breast cancer Current Visit: Yes Status: Acute Priority: Medium Code(s): C50.919 - MALIGNANT NEOPLASM OF UNSP SITE OF UNSPECIFIED FEMALE BREAST SNOMED Code(s): 575172442 (4) COPD exacerbation Current Visit: Yes Status: Acute Priority: High Code(s): J44.1 - CHRONIC OBSTRUCTIVE PULMONARY DISEASE W (ACUTE) EXACERBATION SNOMED Code(s): 009454367 Plan: Febrile neutropenia -Neutropenia secondary to chemotherapy -Patient did receive G-CSF as part of her regimen on 01/29. Patient's WBC/ANC noted to begin recovery at day 8. -Patient has not had a fever for greater than 72 hours, ANC is 11.0, blood cultures negative thus far. MRSA nasal swab negative. Repeat CXR negative for acute processes COPD exacerbation -Patient has history of the same. Low counts contribute to the exacerbation. -Patient is on supportive medications including respiratory treatments and antibiotics. Patient is being followed by Infectious Disease and Pulmonary. -Cont treatment for the same Consitpation: -Last BM 6 days ago. -Colace and senna added without improvement. Senna increased to two tabs twice daily. Milk of magnesia added -Encouraged increasing oral intake and activity as tolerated Oral thrush -Multifactorial including neutropenia, inhaled respiratory treatments -Nystatin suspension ordered, sx improving -Oral care ordered Breast cancer -Patient is status post 1/4 cycles of AC with GCSF -Treatment will be delayed until adequate recovery from her current condition. -Orders sent for dose reduction on anthracycline
--- NOTE | 2023-02-10 15:51 | P.PN ---
Progress Note - Text Progress Note Date: 02/10/23 Chief Complaint: Tired Very pleasant 72-year-old patient, follows with Dr. Mohan. Custody Officer Dr. Parker. Oncologist Dr. Garber. Patient has been diagnosed with breast cancer. Stage I. Triple negative. Posterior lymph nodes. Received her first chemotherapy. Patient thereafter started feeling increasingly tired. The point she fell down yesterday. Has been having diarrhea. A few a day. No blood. No abdominal pain. Has been feeling cold. Did spike a fever in the ER. Decreased appetite. Tired rundown. Had a baseline patient does have a congested cough. Patient has noted urine increased urinary frequency. Has been a bit more short of breath right now. On January 29 patient received G-CSF February 05: Tired. Short of breath. Some clear sputum. On IV cefepime and vancomycin. Cultures negative throughout. Did tolerate some diet. February 06: Reclining in bed. Not very keen on hospital food friend visiting. Left family bring in some food, as discussed with limitations. No fever. On IV cefepime and vancomycin. Respiratory symptoms better. We will do nasal MRSA screen. February 07: Bit more short of breath with coughing overnight. Up in a chair. No fever. Remains on IV cefepime. On DuoNeb. Cultures remain negative. February 08: Decreased appetite. More short of breath. Clear sputum. MRSA screen nasal culture negative. Vancomycin discontinued. We will increase DuoNeb every 4. Add Perforomist. Blood cultures negative. February 09: Up in a chair. Some improvement in wheezing and short of breath. Eating little amounts. Some lower extremity edema. Cutback IV fluids. 1 dose of IV Lasix. Kiran wrap. Mouthwash with salt and warm water. February 10: Up in a chair. Tired. Breathing better. Appetite is still down. Kiran wrap lower extremity. IV cefepime. Seen by executive secretary social welfare. Patient plans to return home. Possibly tomorrow. Active Medications Acetaminophen (Acetaminophen Tab 325 Mg Tab) 650 mg PO Q6HR PRN PRN Reason: Mild Pain or Fever > 100.5 Last Admin: 02/07/23 08:50 Dose: 650 mg Albuterol/Ipratropium (Ipratropium-Albuterol 3 Ml Neb) 3 ml INHALATION RT-Q4H [facility] Last Admin: 02/10/23 15:19 Dose: 3 ml Atorvastatin Calcium (Atorvastatin 10 Mg Tab) 10 mg PO W/SUPPER [facility] Last Admin: 02/09/23 17:09 Dose: 10 mg Benzonatate (Benzonatate 100 Mg Cap) 100 mg PO TID PRN PRN Reason: Cough Last Admin: 02/08/23 00:59 Dose: 100 mg Budesonide (Budesonide 1 Mg/2 Ml Nebu) 1 mg INHALATION RT-BID [facility] Last Admin: 02/10/23 07:48 Dose: Not Given Al Hydroxide/Mg Hydroxide 30 ml/ Diphenhydramine HCl 75 mg/Lidocaine HCl 30 ml 0 ml PO TID [facility] Last Admin: 02/10/23 09:13 Dose: 5 ml Docusate Sodium (Docusate 100 Mg Cap) 100 mg PO BID [facility] Last Admin: 02/10/23 09:12 Dose: 100 mg Formoterol Fumarate (Formoterol Fumarate 20 Mcg/2 Ml Nebu) 20 mcg INHALATION RT-BID [facility] Last Admin: 02/10/23 07:48 Dose: Not Given Cefepime HCl 2 gm/ Sodium (Chloride) 100 mls @ 25 mls/hr IVPB Q8HR [facility]; Protocol Last Admin: 02/10/23 09:12 Dose: 25 mls/hr Latanoprost (Latanoprost 0.005% Ophth Drops 2.5 Ml Btl) 1 drops BOTH EYES HS [facility] Last Admin: 02/09/23 21:45 Dose: 1 drops Magnesium Hydroxide (Magnesium Hydroxide 2,400 Mg/30 Ml Cup) 2,400 mg PO DAILY PRN PRN Reason: Constipation Naloxone HCl (Naloxone 0.4 Mg/Ml 1 Ml Vial) 0.2 mg IV Q2M PRN PRN Reason: Opioid Reversal Nystatin (Nystatin 100,000 Unit/Ml Susp 500,000 Unit/5 Ml Cup) 500,000 unit PO QID [facility]; Protocol Last Admin: 02/10/23 12:00 Dose: 500,000 unit Ondansetron HCl (Ondansetron 4 Mg/2 Ml Vial) 4 mg IVP Q8HR PRN PRN Reason: Nausea And Vomiting Ondansetron HCl (Ondansetron Odt 4 Mg Tab) 4 mg PO Q4H PRN PRN Reason: Nausea And Vomiting Pantoprazole Sodium (Pantoprazole 40 Mg Tablet) 40 mg PO DAILY [facility] Last Admin: 02/10/23 09:12 Dose: 40 mg Prednisone (Prednisone 10 Mg Tab) 30 mg PO DAILY [facility] Last Admin: 02/10/23 09:12 Dose: 30 mg Senna (Sennosides 8.6 Mg Tab) 17.2 mg PO BID [facility] Past medical history to include: COPD, hyperlipidemia, breast cancer triple negative currently undergoing treatment Social history: Lives alone. Stop smoking around 1999. Smoked for about 31 years. No alcohol Physical examination: VITAL SIGNS: 90.7, 116, 19, 133 with 64, 90% room air GENERAL: Up in a chair, tired, breathing better EYES: Pupils equal. Conjunctiva normal. HEENT: External appearance of nose and ears normal, oral cavity white spots in the r pharynx. NECK: JVD not raised; masses not palpable. HEART: First and second heart sounds are normal; no edema. LUNGS:[ Respiratory rate increased, diminished breath sounds , ABDOMEN: Soft, nontender, liver spleen not palpable, no masses palpable. PSYCH: [Alert and oriented x3; mood and affect anxious MUSCULOSKELETAL:No Clubbing/cyanosis;muscles-grossly intact. Evidence of OA INVESTIGATIONS, reviewed in the clinical context: February 10: White count 13.3 hemoglobin 10.7 potassium 3.4 creatinine 0.71 Nasal screen MRSA: Negative February 07: WBC 10.3 hemoglobin 11.6 platelets 108 COVID 19: Not detected February 06: WBC 2.1 hemoglobin 10.7 platelets 81 pro calcitonin 0.15 February 05: White count 0.7 hemoglobin 11.1 platelets 76 neutrophils 0.4 February 04: White count 0.6 hemoglobin 13.1 platelets 96 sodium 133 potassium 4.2 BUN 20 creatinine 0.86 UA: Negative for nitrite leukoesterase. EKG tracing personally reviewed by me-normal sinus rhythm. Rate 106 CT brain without contrast: Mild central cerebral atrophy. Moderate burden of chronic small vessel ischemic disease. CT angiogram chest: No evidence of PE. Emphysema changes. Assessment and plan: -Sepsis picture in a patient status post first dose of chemotherapy. Patient's UA is benign. Had some more shortness breath. This could be from tumor lysis/pneumonia.: Better Empirically patient on IVs cefepime . Blood culture negative Vancomycin discontinued. -Suspect pneumonia, gram-negative organism, POA: Improving IV cefepime MRSA nasal screen-negative. Vancomycin discontinued.. -Acute COPD exacerbation in a ex-smoker: Better DuoNeb to every 4., Prednisone 30 mg. Pulmicort nebulizer 1 mg twice a day Perforomist twice a day -Pancytopenia secondary to chemotherapy: Better Received G-CSF on January 29 -Hyperlipidemia Lipitor 10 mg with supper -Breast cancer-, triple negative. Has received 2/4 cycles of AC. Being followed by Dr. Garber from oncology. -Full code Discussed with patient. Increase activity. Replace potassium.
[2023-02-10] MEDS: ATORVASTATIN 10 MG TAB PO SCH (16:40)
[2023-02-10] MEDS: LATANOPROST 0.005% OPHTH DROPS 2.5 ML BTL BOTH EYES SCH (22:19)
[2023-02-11] MEDS: IPRATROPIUM-ALBUTEROL 3 ML NEB INHALATION SCH ×4 (00:13→12:26)
[2023-02-11] MEDS: CEFEPIME 2 GM in SODIUM CHLORIDE 0.9% 100 ML IVPB SCH ×2 (00:28→10:03)
[2023-02-11] MEDS: BENZONATATE 100 MG CAP PO PRN ×2 (00:33→15:05)
[2023-02-11 05:53] LABS: HCT 31.4 % (34.0-46.0); HGB 10.3 gm/dL (11.4-16.0); MCH 30.3 pg (25.0-35.0); MCV 91.8 fL (80.0-100.0); Mean Platelet Volume 8.3; Platelet Count 259 k/uL (150-450); RBC 3.42 m/uL (3.80-5.40); RDW 13.3 % (11.5-15.5); WBC 15.1 k/uL (3.8-10.6)
[2023-02-11 06:14] LABS: Band Neutrophils % 22 %; Lymphocytes # (M) 1.81 k/uL (1.0-4.8); Metamyelocytes % 4 %; Monocytes # (M) 1.06 k/uL (0-1.0); Myelocytes # (M) 0.15 k/uL (0); Myelocytes % 1 %; Neutrophils % (M) 54 %; Nucleated Red Blood Cells 0 /100 WBC (0-0); Total Cells Counted 200
--- NOTE | 2023-02-11 08:25 | P.PN ---
Subjective Progress Note Date: 02/10/23 Principal diagnosis: Febrile Neutropenia Patient is a 72-year-old female with a past medical history significant for COPD breast cancer for the patient recently did get Mediport placement and completed her first chemotherapy cycle on 01/28/2023 patient now presenting to the [facility] ER complains of generalized weakness dizziness and near syncopal episode, patient did have a fever and low white count. On today's evaluation that is 02/10/2023, the patient denies having any fever or any chills, the patient is still complaining of some shortness of breath and the patient continued to have a cough Medicomp some sputum no hemoptysis no nausea no bleeding no abdominal pain and no diarrhea. Patient white count of 15.1 creatinine 0.71 blood culture has been negative sputum cultures came back negative as well. Objective - Vital Signs Vital signs: Vital Signs Temp 98.6 F 02/10/23 08:05 Pulse 100 02/10/23 08:05 Resp 16 02/10/23 08:05 BP 133/52 02/10/23 08:05 Pulse Ox 98 02/10/23 08:05 FiO2 Intake & Output 02/09/23 02/10/23 02/10/23 18:59 06:59 18:59 Output Total 400 Balance -400 Output: Urine 400 Other: Voiding Method Toilet Bedside Commode # Voids 2 2 1 - Exam GENERAL DESCRIPTION: Elderly female lying in bed in no distress RESPIRATORY SYSTEM: Unlabored breathing , decreased breath sounds at bases HEART: S1 S2 regular rate and rhythm ,no loud murmurs ABDOMEN: Soft , no tenderness EXTREMITIES: No edema feet - Labs CBC & Chem 7: 02/11/23 05:34 02/10/23 04:11 Labs: Abnormal Lab Results - Last 24 Hours (Table) 02/10/23 02/10/23 Range/Units 04:11 04:11 WBC 13.3 H (3.8-10.6) k/uL RBC 3.53 L (3.80-5.40) m/uL Hgb 10.7 L (11.4-16.0) gm/dL Hct 32.5 L (34.0-46.0) % Neutrophils # (Manual) 11.00 H (1.3-7.7) k/uL Metamyelocytes # (Man) 0.27 H (0) k/uL Myelocytes # (Manual) 0.27 H (0) k/uL Nucleated RBCs 1 H (0-0) /100 WBC Sodium 132 L (137-145) mmol/L Potassium 3.4 L (3.5-5.1) mmol/L Chloride 96 L (98-107) mmol/L Carbon Dioxide 32 H (22-30) mmol/L Calcium 8.3 L (8.4-10.2) mg/dL Microbiology - Last 24 Hours (Table) 02/04/23 12:40 Blood Culture - Final Blood 02/04/23 12:55 Blood Culture - Final Blood 02/08/23 16:01 Gram Stain - Final Sputum Sputum Culture - Final Assessment and Plan (1) Febrile neutropenia Current Visit: Yes Status: Resolved Priority: High Code(s): D70.9 - NEUTROPENIA, UNSPECIFIED; R50.81 - FEVER PRESENTING WITH CONDITIONS CLASSIFIED ELSEWHERE SNOMED Code(s): 503197303 Plan: 1patient presented hospital with febrile neutropenia in this patient with recent diagnosis of breast cancer has received her first cycle of chemotherapy about a week ago now presenting with weakness did have predominantly GI symptoms especially diarrhea and did have some sores in the mouth CT of the chest was negative for any pneumonia urine was negative no evidence of any cellulitis at the [facility] site 2the patient blood cultures are negative and the patient white count has normalized, fever has resolved, Sputum culture has been negative as well. 3we will keep the patient on cefepime while inpatient and transition short course of oral Ceftin on discharge Dictation was produced using [employer] dictation software. please excuse any grammatical, word or spelling errors.
[2023-02-11] MEDS: BUDESONIDE 1 MG/2 ML NEBU INHALATION SCH (08:32)
[2023-02-11] MEDS: FORMOTEROL FUMARATE 20 MCG/2 ML NEBU INHALATION SCH (08:32)
[2023-02-11] MEDS: SENNOSIDES 8.6 MG TAB PO SCH (10:00)
[2023-02-11] MEDS: DOCUSATE 100 MG CAP PO SCH (10:00)
[2023-02-11] MEDS: predniSONE 10 MG TAB PO SCH (10:01)
[2023-02-11] MEDS: MAG HYDROX/AL HYDROX/SIMETH 30 ML, diphenhydrAMINE ELIXIR 75 MG, LIDOCAINE VISCOUS 2% 3... PO SCH ×3 (10:01)
[2023-02-11] MEDS: PANTOPRAZOLE 40 MG TABLET PO SCH (10:02)
[2023-02-11] MEDS: NYSTATIN 100,000 UNIT/ML SUSP 500,000 UNIT/5 ML CUP PO SCH ×2 (10:02→14:43)
--- NOTE | 2023-02-11 13:14 | P.PN ---
Subjective Progress Note Date: 02/11/23 Principal diagnosis: neutropenic fever At today's visit patient is resting comfortably in bedside chair. She reports improvement in breathing. Patient remains afebrile, SPO2 97% on 2L. Tolerating oral intake. Denies nausea vomiting diarrhea. Patient had large BM this morning. WBC has significantly improved, 15.1, ANC 11.4 Objective - Vital Signs Vital signs: Vital Signs Temp 98.7 F 02/11/23 07:49 Pulse 108 H 02/11/23 12:36 Resp 16 02/11/23 07:49 BP 128/63 02/11/23 07:49 Pulse Ox 97 02/11/23 10:55 FiO2 Intake & Output 02/10/23 02/11/23 02/11/23 18:59 06:59 18:59 Intake Total 100 Balance 100 Weight 64.41 kg Intake: Intake, IV Titration 100 Amount Cefepime 2 gm In Sodium 100 Chloride 0.9% 100 ml @ 25 mls/hr IVPB Q8HR [facility] Rx# :[id number] Other: # Voids 1 3 - Constitutional General appearance: Present: average body habitus, no acute distress - EENT Eyes: Present: anicteric sclerae, EOMI ENT: Present: hearing grossly normal - Respiratory Details: breathing is even and unlabored - Cardiovascular Details: skin is warm and dry - Gastrointestinal General gastrointestinal: Present: soft. Absent: tenderness - Integumentary Integumentary: Absent: cyanotic, jaundiced - Neurologic Neurologic: Present: CNII-XII intact - Musculoskeletal Musculoskeletal: Present: strength equal bilaterally - Psychiatric Psychiatric: Present: A&O x's 3, appropriate affect, intact judgment & insight - Labs CBC & Chem 7: 02/11/23 05:34 02/10/23 04:11 Labs: Abnormal Lab Results - Last 24 Hours (Table) 02/11/23 Range/Units 05:34 WBC 15.1 H (3.8-10.6) k/uL RBC 3.42 L (3.80-5.40) m/uL Hgb 10.3 L (11.4-16.0) gm/dL Hct 31.4 L (34.0-46.0) % Neutrophils # (Manual) 11.40 H (1.3-7.7) k/uL Monocytes # (Manual) 1.06 H (0-1.0) k/uL Metamyelocytes # (Man) 0.60 H (0) k/uL Myelocytes # (Manual) 0.15 H (0) k/uL Microbiology - Last 24 Hours (Table) 02/08/23 16:01 Gram Stain - Final Sputum Sputum Culture - Final Assessment and Plan (1) Dehydration Current Visit: Yes Status: Acute Priority: High Code(s): E86.0 - DEHYDRATION SNOMED Code(s): 80918664 (2) Neutropenia Current Visit: Yes Status: Acute Priority: High Code(s): D70.9 - NEUTROPENIA, UNSPECIFIED SNOMED Code(s): 233104717 (3) Breast cancer Current Visit: Yes Status: Acute Priority: Medium Code(s): C50.919 - MALIGNANT NEOPLASM OF UNSP SITE OF UNSPECIFIED FEMALE BREAST SNOMED Code(s): 286112838 (4) COPD exacerbation Current Visit: Yes Status: Acute Priority: High Code(s): J44.1 - CHRONIC OBSTRUCTIVE PULMONARY DISEASE W (ACUTE) EXACERBATION SNOMED Code(s): 153187454 Plan: Febrile neutropenia -Neutropenia secondary to chemotherapy -Patient did receive G-CSF as part of her regimen on 01/29. Patient's WBC/ANC noted to begin recovery at day 8. -Patient has not had a fever for greater than 72 hours, ANC is 11.4, blood cultures negative thus far. MRSA nasal swab negative. Repeat CXR negative for acute processes COPD exacerbation -Patient has history of the same. Low counts contribute to the exacerbation. -Patient is on supportive medications including respiratory treatments and antibiotics. Patient is being followed by Infectious Disease and Pulmonary. -Cont treatment for the same Constipation: -Continues on colace and senna two tabs twice daily. Milk of magnesia added. Pt had large BM this morning -Encouraged increasing oral intake and activity as tolerated -Senokot-S sent to pharmacy, will continue outpt. Instructed pt on use and when to d/c Oral thrush -Multifactorial including neutropenia, inhaled respiratory treatments -Nystatin suspension ordered, sx improving -Oral care ordered Breast cancer -Patient is status post 1/4 cycles of AC with GCSF -Plan to delay treatment for one week pending acute recovery of symptoms -Orders sent for dose reduction on anthracycline -F/u tomorrow in clinic with Dr. Garber
--- NOTE | 2023-02-11 15:20 | P.PN ---
Subjective Progress Note Date: 02/11/23 Principal diagnosis: Febrile Neutropenia Patient is a 72-year-old female with a past medical history significant for COPD breast cancer for the patient recently did get Mediport placement and completed her first chemotherapy cycle on 01/28/2023 patient now presenting to the [facility] ER complains of generalized weakness dizziness and near syncopal episode, patient did have a fever and low white count. On today's evaluation that is 02/11/2023, the patient is afebrile, the patient is breathing comfortably on 2 L nasal cannula oxygen , the patient denies chest pain and no significant cough, the patient denies nausea and vomiting no abdominal pain and no diarrhea,. Patient white count of 15.1, creatinine 0.71 as of yesterday blood culture has been negative sputum cultures came back negative as well. Objective - Vital Signs Vital signs: Vital Signs Temp 98.7 F 02/11/23 07:49 Pulse 113 H 02/11/23 08:48 Resp 16 02/11/23 07:49 BP 128/63 02/11/23 07:49 Pulse Ox 97 02/11/23 10:55 FiO2 Intake & Output 02/10/23 02/11/23 02/11/23 18:59 06:59 18:59 Intake Total 100 Balance 100 Weight 64.41 kg Intake: Intake, IV Titration 100 Amount Cefepime 2 gm In Sodium 100 Chloride 0.9% 100 ml @ 25 mls/hr IVPB Q8HR [facility] Rx# :[id number] Other: # Voids 1 3 - Exam GENERAL DESCRIPTION: Elderly female lying in bed in no distress RESPIRATORY SYSTEM: Unlabored breathing , decreased breath sounds at bases HEART: S1 S2 regular rate and rhythm ,no loud murmurs ABDOMEN: Soft , no tenderness EXTREMITIES: No edema feet - Labs CBC & Chem 7: 02/11/23 05:34 02/10/23 04:11 Labs: Abnormal Lab Results - Last 24 Hours (Table) 02/11/23 Range/Units 05:34 WBC 15.1 H (3.8-10.6) k/uL RBC 3.42 L (3.80-5.40) m/uL Hgb 10.3 L (11.4-16.0) gm/dL Hct 31.4 L (34.0-46.0) % Neutrophils # (Manual) 11.40 H (1.3-7.7) k/uL Monocytes # (Manual) 1.06 H (0-1.0) k/uL Metamyelocytes # (Man) 0.60 H (0) k/uL Myelocytes # (Manual) 0.15 H (0) k/uL Microbiology - Last 24 Hours (Table) 02/08/23 16:01 Gram Stain - Final Sputum Sputum Culture - Final Assessment and Plan (1) Febrile neutropenia Status: Resolved Priority: High Code(s): D70.9 - NEUTROPENIA, UNSPECIFIED; R50.81 - FEVER PRESENTING WITH CONDITIONS CLASSIFIED ELSEWHERE SNOMED Code(s): 840832001 Plan: 1patient presented hospital with febrile neutropenia in this patient with recent diagnosis of breast cancer has received her first cycle of chemotherapy about a week ago now presenting with weakness did have predominantly GI symptoms especially diarrhea and did have some sores in the mouth CT of the chest was negative for any pneumonia urine was negative no evidence of any cellulitis at the [facility] site 2the patient blood cultures are negative and the patient white count has normalized, fever has resolved, Sputum culture has been negative as well. 3patient did have resolution of her fever and white count has normalized cultures negative for any resistant pathogen will give a short course of oral Ceftin on discharge Dictation was produced using [employer] dictation software. please excuse any grammatical, word or spelling errors. Time with Patient: Less than 30
--- NOTE | 2023-02-11 15:41 | P.DS ---
Providers Date of admission: 02/04/23 08:24 Expected date of discharge: 02/11/23 Attending physician: Deonte Nolen Consults: 02/04/23 08:25 Consult Physician Stat Consulting Provider: Marquise Garber Consult Reason/Comments: Neutropenia, dehydration Do you want consulting provider notified?: Yes 02/04/23 11:33 Consult Physician Routine Consulting Provider: Vik Mcclellan Consult Reason/Comments: neutropenia s/p chemo, diarrhea, abx rec Do you want consulting provider notified?: Yes 02/04/23 12:33 Consult Physician Routine Consulting Provider: Bucky Patel Consult Reason/Comments: copd Do you want consulting provider notified?: Yes Primary care physician: Jluis Hawthorn Center Course: Chief Complaint: Tired Very pleasant 72-year-old patient, follows with Dr. Mohan. Audio Production Manager Dr. Parker. Oncologist Dr. Garber. Patient has been diagnosed with breast cancer. Stage I. Triple negative. Posterior lymph nodes. Received her first chemotherapy. Patient thereafter started feeling increasingly tired. The point she fell down yesterday. Has been having diarrhea. A few a day. No blood. No abdominal pain. Has been feeling cold. Did spike a fever in the ER. Decreased appetite. Tired rundown. Had a baseline patient does have a congested cough. Patient has noted urine increased urinary frequency. Has been a bit more short of breath right now. On January 29 patient received G-CSF February 05: Tired. Short of breath. Some clear sputum. On IV cefepime and vancomycin. Cultures negative throughout. Did tolerate some diet. February 06: Reclining in bed. Not very keen on hospital food friend visiting. Left family bring in some food, as discussed with limitations. No fever. On IV cefepime and vancomycin. Respiratory symptoms better. We will do nasal MRSA screen. February 07: Bit more short of breath with coughing overnight. Up in a chair. No fever. Remains on IV cefepime. On DuoNeb. Cultures remain negative. February 08: Decreased appetite. More short of breath. Clear sputum. MRSA screen nasal culture negative. Vancomycin discontinued. We will increase DuoNeb every 4. Add Perforomist. Blood cultures negative. February 09: Up in a chair. Some improvement in wheezing and short of breath. Eating little amounts. Some lower extremity edema. Cutback IV fluids. 1 dose of IV Lasix. Kiran wrap. Mouthwash with salt and warm water. February 10: Up in a chair. Tired. Breathing better. Appetite is still down. Kiran wrap lower extremity. IV cefepime. Seen by psychiatric social worker supervisor. Patient plans to return home. Possibly tomorrow. February 11: Patient feeling much better today. Had a good bowel movement. Breathing better. Eating better. Discussed with the patient. With discharge i n 5 days of Ceftin. Prednisone taper. DuoNeb. Patient to follow-up with the steel barrel reamer and Dr. Garber oncologist. Home oxygen for COPD. Discussion and discharge planning more than 35 minutes Past medical history to include: COPD, hyperlipidemia, breast cancer triple negative currently undergoing treatment Social history: Lives alone. Stop smoking around 1999. Smoked for about 31 years. No alcohol Physical examination: VITAL SIGNS: 98.7, 108, 16, 128 by city 3, 94% on 2 L GENERAL: Up in a chair, much improved EYES: Pupils equal. Conjunctiva normal. HEENT: External appearance of nose and ears normal, oral cavity white spots in the r pharynx. NECK: JVD not raised; masses not palpable. HEART: First and second heart sounds are normal; no edema. LUNGS:[ Respiratory rate normal, diminished breath sounds , ABDOMEN: Soft, nontender, liver spleen not palpable, no masses palpable. PSYCH: [Alert and oriented x3; mood and affect anxious MUSCULOSKELETAL:No Clubbing/cyanosis;muscles-grossly intact. Evidence of OA INVESTIGATIONS, reviewed in the clinical context: February 12: White count 15.1 hemoglobin 10.3 procalcitonin 0.08 February 10: White count 13.3 hemoglobin 10.7 potassium 3.4 creatinine 0.71 Nasal screen MRSA: Negative February 07: WBC 10.3 hemoglobin 11.6 platelets 108 COVID 19: Not detected February 06: WBC 2.1 hemoglobin 10.7 platelets 81 pro calcitonin 0.15 February 05: White count 0.7 hemoglobin 11.1 platelets 76 neutrophils 0.4 February 04: White count 0.6 hemoglobin 13.1 platelets 96 sodium 133 potassium 4.2 BUN 20 creatinine 0.86 UA: Negative for nitrite leukoesterase. EKG tracing personally reviewed by me-normal sinus rhythm. Rate 106 CT brain without contrast: Mild central cerebral atrophy. Moderate burden of chronic small vessel ischemic disease. CT angiogram chest: No evidence of PE. Emphysema changes. Assessment and plan: -Sepsis picture in a patient status post first dose of chemotherapy. Patient's UA is benign. Had some more shortness breath. This could be from tumor lysis/pneumonia.: Better Empirically patient on IVs cefepime . Blood culture negative Vancomycin discontinued. -Suspect pneumonia, gram-negative organism, POA: Improving IV cefepime MRSA nasal screen-negative. Vancomycin discontinued.. Discharge in Ceftin 5 mg twice a day for 5 days -Acute COPD exacerbation in a ex-smoker: Better DuoNeb to every 4., Prednisone 30 mg. Pulmicort nebulizer 1 mg twice a day Perforomist twice a day -Chronic hypoxic respiratory failure secondary to underlying COPD -Pancytopenia secondary to chemotherapy: Better Received G-CSF on January 29 -Hyperlipidemia Lipitor 10 mg with supper -Breast cancer-, triple negative. Has received 2/4 cycles of AC. Being followed by Dr. Garber from oncology. -Full code Disposition: Home Plan - Discharge Summary Discharge Rx Participant: No New Discharge Prescriptions: New cefUROXime axetiL [Ceftin] 500 mg PO BID #10 tab Ipratropium-Albuterol Nebulize [Duoneb 0.5 mg-3 mg/3 ml Soln] 3 ml INHALATION TID #90 ml Sennosides-Docusate Sodium [Senokot-S] 2 tab PO BID #60 tablet Continue Mometasone/Formoterol [Dulera 200 Mcg-5 Mcg Inhaler] 2 puff INHALATION RT-BID Bimatoprost [Lumigan 0.01% Ophth Soln] 1 drop BOTH EYES HS Aprepitant [Emend] 80 mg PO DIRECTED Lido/Mdryl/Maalox 111 5 ml PO PCHS Atorvastatin [Lipitor] 10 mg PO W/SUPPER Omeprazole 20 mg PO DAILY Ondansetron Odt [Zofran ODT] 4 mg PO Q4H PRN PRN Reason: Nausea And Vomiting OLANZapine [ZyPREXA] 2.5 - 5 mg PO HS Lidocaine-Prilocaine Cream [Emla Cream 2.5%/2.5%] 1 applic TOPICAL DAILY PRN PRN Reason: PORT ACCESS Discontinued Tiotropium [place] [Spiriva] 1 cap INHALATION RT-DAILY Discharge Medication List Bimatoprost [Lumigan 0.01% Ophth Soln] 1 drop BOTH EYES HS 10/13/17 [History] Mometasone/Formoterol [Dulera 200 Mcg-5 Mcg Inhaler] 2 puff INHALATION RT-BID 10/13/17 [History] Atorvastatin [Lipitor] 10 mg PO W/SUPPER 03/19/21 [History] Omeprazole 20 mg PO DAILY 12/18/22 [History] Aprepitant [Emend] 80 mg PO DIRECTED 02/04/23 [History] Lido/Mdryl/Maalox 111 5 ml PO PCHS 02/04/23 [History] Lidocaine-Prilocaine Cream [Emla Cream 2.5%/2.5%] 1 applic TOPICAL DAILY PRN 02/04/23 [History] OLANZapine [ZyPREXA] 2.5 - 5 mg PO HS 02/04/23 [History] Ondansetron Odt [Zofran ODT] 4 mg PO Q4H PRN 02/04/23 [History] Ipratropium-Albuterol Nebulize [Duoneb 0.5 mg-3 mg/3 ml Soln] 3 ml INHALATION TI D #90 ml 02/11/23 [Rx] Sennosides-Docusate Sodium [Senokot-S] 2 tab PO BID #60 tablet 02/11/23 [Rx] cefUROXime axetiL [Ceftin] 500 mg PO BID #10 tab 02/11/23 [Rx] Follow up Appointment(s)/Referral(s): Marquise Garber [STAFF PHYSICIAN] - 02/12/23 10:15 am ([place] office, [facility] [facility] ) Jluis Mohan DO [Primary Care Provider] - 1-2 days (The office will call with a follow up appointment) Vinny Henao MD [STAFF PHYSICIAN] - 03/01/23 9:15 am (w/ Dr Parker) Patient Instructions/Handouts: Cefuroxime (By mouth), Ipratropium/Albuterol (By breathing), Using Oxygen at Home (DC), COPD (Chronic Obstructive Pulmonary Disease) (DC), Neutropenia (DC) Discharge Disposition: HOME WITH HOME HEALTH SERVICES
[2023-02-11 15:42] VITALS: BP 128/63; PULSE 108; TEMP 98.7
== END 2023-02-11 15:07 | disposition home health service (06) | DRG 871 ==
LOC: EC 05:06 → 5NMEDONC 08:24
PROVIDERS: ADMIT Hospitalist; ATTEND Hospitalist
DX: A41.50 Gram-negative sepsis, unspecified (principal); D61.810 Antineoplastic chemotherapy induced pancytopenia; J15.6 Pneumonia due to other Gram-negative bacteria; E88.3 Tumor lysis syndrome; J96.11 Chronic respiratory failure with hypoxia; K56.7 Ileus, unspecified; E87.1 Hypo-osmolality and hyponatremia; C50.911 Malignant neoplasm of unspecified site of right female breast; Z17.1 Estrogen receptor negative status [ER-]; T45.1X5A Adverse effect of antineoplastic and immunosuppressive drugs, initial encounter; D70.1 Agranulocytosis secondary to cancer chemotherapy; E86.0 Dehydration; E78.5 Hyperlipidemia, unspecified; J43.9 Emphysema, unspecified; K12.30 Oral mucositis (ulcerative), unspecified; K21.9 Gastro-esophageal reflux disease without esophagitis; K52.9 Noninfective gastroenteritis and colitis, unspecified; N32.89 Other specified disorders of bladder; R29.6 Repeated falls; Z99.81 Dependence on supplemental oxygen; Z91.81 History of falling; Z20.822 Contact with and (suspected) exposure to COVID-19; Z79.51 Long term (current) use of inhaled steroids; Z82.49 Family history of ischemic heart disease and other diseases of the circulatory system; Z82.5 Family history of asthma and other chronic lower respiratory diseases; R00.0 Tachycardia, unspecified; Z60.2 Problems related to living alone; K57.30 Diverticulosis of large intestine without perforation or abscess without bleeding
CPT/HCPCS: 36415; 70450; 71045; 71046; 71275; 74177; 80048; 80053; 80202; 81003; 82565; 83605; 83735; 83880; 84100; 84145; 84484; 85025; 85379; 85610; 85730; 87040; 87070; 87205; 87502; 87634; 87635; 93005; 94640; 94760; 96361; 96374; 99285

== ENCOUNTER 2023-07-01 10:20 | Day surgery (SDC) | payer MEDICARE ==
[2023-06-25 10:27] VITALS: BMI 23.1
[~2023-07-01 10:20] MED LIST changes: +ACETAMINOPHEN TAB 500 MG TAB PO PRN; +HEPARIN SODIUM,PORCINE 5,000 UNIT/ML 1 ML VIAL SQ PRN; +HYDROmorphone 0.5 MG/0.5 ML SYRINGE IVP PRN; +LACTATED RINGERS 1,000 ML IV SCH; +LIDOCAINE 1% (10MG/ML) FOR IV START INTRADERMA PRN; +ONDANSETRON 4 MG/2 ML VIAL IVP ONE; -Pre Op ABX Message 1 EACH MISC MISCELLANE ONE; +droPERidol 5 MG/2 ML VIAL IVP ONE
--- NOTE | 2023-07-01 10:40 | P.GSHP ---
History of Present Illness H&P Date: 07/01/23 Chief Complaint: Right breast cancer 72-year-old female presenting today for Port-A-Cath removal. Patient had adjuvant chemotherapy after right-sided breast cancer. No issues with the left sided port. Past Medical History Past Medical History: COPD, Eye Disorder, Hyperlipidemia Additional Past Medical History / Comment(s): rt breast CA dx [id number] chemo, starting radiation on 07-05-23.Bronchitis, bilateral eyes with increased intraocular pressure-not glaucoma yet, neuralgia R side forhead in past,daily steroid, FOOD GETS STUCK IN THROAT, BLOATING History of Any Multi-Drug Resistant Organisms: None Reported Past Surgical History: Breast Surgery, Hernia Repair, Orthopedic Surgery Additional Past Surgical History / Comment(s): Bilateral carpal tunnel; bilateral cataract removal with lens, bronchoscopy, R inguinal hernia repair, colonoscopy, benign L breast biopsy. RT BREAST BIOSPY,rt breast lumpectomy and 1 lymph node,lt chest portacath Past Anesthesia/Blood Transfusion Reactions: No Reported Reaction Additional Past Anesthesia/Blood Transfusion Reaction / Comment(s): no hx blood transfusion Smoking Status: Former smoker - Past Family History Father Family Medical History: COPD Additional Family Medical History / Comment(s): Father in his 50s of COPD. He was a smoker. Mother Family Medical History: CVA/TIA, Hypertension, Pneumonia Additional Family Medical History / Comment(s): Mother fell at age 85 and fractured her hip. Post op she became HTN and had a stroke and then ended up with pneumonia and . Medications and Allergies Home Medications Medication Instructions Recorded Confirmed Type Bimatoprost [Lumigan 0.01% Ophth 1 drop BOTH EYES HS 10/13/17 06/25/23 History Soln] Mometasone/Formoterol [Dulera 200 2 puff INHALATION RT-BID 10/13/17 06/25/23 History Mcg-5 Mcg Inhaler] Atorvastatin [Lipitor] 10 mg PO W/SUPPER 03/19/21 06/25/23 History Omeprazole 20 mg PO QAM 12/18/22 06/25/23 History Gabapentin [Neurontin] 200 mg PO BID 05/13/23 06/25/23 History Acetaminophen Tab [Tylenol Tab] 1,000 mg PO Q6HR PRN 06/25/23 06/25/23 History Ipratropium-Albuterol Nebulize 3 ml INHALATION TID PRN 06/25/23 06/25/23 History [Duoneb 0.5 mg-3 mg/3 ml Soln] Tiotropium 18 Mcg/Puff [Spiriva] 1 puff INHALATION QAM 06/25/23 06/25/23 History Vitamin E (Dl,Tocopheryl Acet) 1,000 unit PO DAILY 06/25/23 06/25/23 History [Vitamin E (1000 Iu = 450 MG)] predniSONE 5 mg PO QAM 06/25/23 06/25/23 History Allergies Allergy/AdvReac Type Severity Reaction Status Date / Time budesonide [From Symbicort] AdvReac ANXIETY Verified 07/01/23 10:39 formoterol [From Symbicort] AdvReac ANXIETY Verified 07/01/23 10:39 zolpidem [From Ambien] AdvReac Hallucinati Verified 07/01/23 10:39 ons Surgical - Exam Physical exam: General: Well-developed, well-nourished HEENT: Normocephalic, sclerae nonicteric Abdomen: Nontender, nondistended Extremities: No edema Neuro: Alert and oriented Assessment and Plan (1) Breast cancer, right Narrative/Plan: 72-year-old female with right breast cancer. Will proceed with Port-A-Cath removal at this time. Current Visit: No Status: Acute Priority: Medium Code(s): C50.911 - MALIGNANT NEOPLASM OF UNSP SITE OF RIGHT FEMALE BREAST SNOMED Code(s): 187157867
[2023-07-01 10:59] LABS: Glucose,Whole Blood 105 mg/dL (70-110)
[2023-07-01] MEDS ORDERED: ONDANSETRON 4 MG/2 ML VIAL IVP ONE (11:01)
[2023-07-01 11:17] VITALS: TEMP 98.3
[2023-07-01] MEDS ORDERED: LIDOCAINE 1% INJ 10MG/ML (20 ML MDV) SQ ONE ×2 (12:18→12:41)
[2023-07-01] MEDS ORDERED: MIDAZOLAM 2 MG/2 ML VIAL ONE (12:25)
[2023-07-01] MEDS ORDERED: PROPOFOL 10 MG/ML 20 ML VIAL IV ONE (12:25)
[2023-07-01] MEDS ORDERED: fentaNYL (PF) 50 MCG/ML 2 ML AMP ONE (12:25)
[2023-07-01] MEDS ORDERED: NALOXONE 0.4 MG/ML 1 ML VIAL IV PRN (12:57)
--- NOTE | 2023-07-01 12:58 | P.OP ---
Date of Procedure: 07/01/23 Procedure(s) Performed: PREOPERATIVE DIAGNOSIS: Right breast cancer POSTOPERATIVE DIAGNOSIS: Same PROCEDURE: Port-A-Cath removal SURGEON: Akosua EBL: 5 cc ANESTHESIA: Sedation COMPLICATIONS: None OPERATIVE PROCEDURE: Patient was placed in the supine position. The patient was sedated per anesthesia that time. The chest was prepped and draped in the usual sterile fashion. The skin was localized with Marcaine solution. The previous incision was re-incised using a scalpel. The port was easily excised using accommodation of blunt dissection sharp dissection and electrocautery. The subcutaneous tissues were reapproximated using 3-0 Vicryl sutures. The skin was reapproximated using 4-0 Monocryl sutures. Skin glue was then applied. DISPOSITION: Stable to recovery room
[2023-07-01 14:09] VITALS: BP 145/78; PULSE 83; RESP 18
== END 2023-07-01 14:07 | disposition home or self-care (01) ==
LOC: OR 10:20
PROVIDERS: ATTEND Surgery
DX: Z45.2 Encounter for adjustment and management of vascular access device (principal); C50.411 Malignant neoplasm of upper-outer quadrant of right female breast; Z87.891 Personal history of nicotine dependence; Z88.8 Allergy status to other drugs, medicaments and biological substances; Z79.899 Other long term (current) drug therapy; Z79.52 Long term (current) use of systemic steroids; Z79.51 Long term (current) use of inhaled steroids
CPT/HCPCS: 36590; J2250; J1644; J0690; J2405; J2001; J3010; J2704

== ENCOUNTER 2023-11-25 11:10 | Day surgery (SDC) | payer MEDICARE ==
[2023-11-22 15:33] VITALS: BMI 23.1
[~2023-11-25 11:10] MED LIST changes: -ACETAMINOPHEN TAB 500 MG TAB PO PRN; -HEPARIN SODIUM,PORCINE 5,000 UNIT/ML 1 ML VIAL SQ PRN; -HYDROmorphone 0.5 MG/0.5 ML SYRINGE IVP PRN; -LIDOCAINE 1% (10MG/ML) FOR IV START INTRADERMA PRN; -ONDANSETRON 4 MG/2 ML VIAL IVP ONE; -droPERidol 5 MG/2 ML VIAL IVP ONE
[2023-11-25] MEDS: LIDOCAINE 1% (10MG/ML) FOR IV START INTRADERMA PRN (11:57)
[2023-11-25] MEDS: IV FLUID CONTINUATION 1,000 ML IV ONE ×2 (11:57→12:06)
[2023-11-25] MEDS: LACTATED RINGERS 1,000 ML IV SCH (11:57)
[2023-11-25] MEDS ORDERED: LIDOCAINE 1% INJ 10MG/ML (20 ML MDV) ONE (12:06)
[2023-11-25] MEDS ORDERED: PROPOFOL 10 MG/ML 20 ML VIAL IV ONE (12:06)
[2023-11-25] MEDS ORDERED: SUCCINYLCHOLINE CHLORIDE 200 MG/10 ML VIAL IV ONE (12:06)
[2023-11-25 12:14] LABS: Glucose,Whole Blood 89 mg/dL (70-110)
[2023-11-25 12:49] VITALS: TEMP 97.1
--- NOTE | 2023-11-25 13:01 | OP ---
OPERATIVE REPORT DATE OF SERVICE : OPERATIVE REPORT: Bronchoscopy, random bronchial washings, and BAL. PREOPERATIVE DIAGNOSES: Recurrent bronchitis, recurrent exacerbation of COPD, unable to clear secretions in spite of antibiotics, bronchodilators and steroids. POSTOPERATIVE DIAGNOSIS: Recurrent bronchitis, recurrent exacerbation of COPD, unable to clear secretions in spite of antibiotics, bronchodilators and steroids. ANESTHESIA USED: The patient received general anesthesia with intubation. DESCRIPTION OF PROCEDURE: The patient was brought in to the bronchoscopy suite, she was prepared according to the bronchoscopy protocol prior to the procedure. The patient was intubated by ADVERTISING SALES MANAGER, placed on mechanical ventilation, and we monitored O2 saturation continuously, cardiac rhythm was continuously monitored, and blood pressure was intermittently monitored. After adequate sedation and anesthesia, the bronchoscope was advanced through the adapter on the endotracheal tube, and advanced further down to the distal trachea. Significant thick purulent secretions were noted in the right mainstem bronchus and left mainstem bronchus, these were suctioned, and cleared. Then, thorough examination was done of right upper lobe, right middle lobe, right lower lobe, left upper lobe lingula, and left lower lobe. There was evidence of secondary secretions scattered throughout the airways, mostly in the lower lobe, especially right lower lobe and left lower lobe. Bronchoalveolar lavage was done of the right lower lobe and right middle lobe as well as left lower lobe. Then, bronchial washing was also performed from all the different areas bilaterally until all purulent secretions were suctioned and cleared from the airways. The procedure was well tolerated, no complications, the patient will be extubated shortly, and she will be sent to recovery. MMFARHAT / LEAN: [id number] /
[2023-11-25] MEDS: IPRATROPIUM-ALBUTEROL 3 ML NEB INHALATION STA (13:08)
[2023-11-25 13:16] VITALS: RESP 18
[2023-11-25] MEDS: METOPROLOL TARTRATE 5 MG/5 ML VIAL IVP STA ×2 (13:29→14:03)
[2023-11-25 14:36] VITALS: PULSE 85
[2023-11-25 14:42] VITALS: BP 168/92
[2023-11-25 21:34] LABS: Appearance,BF Cloudy (Clear); RBC, Body Fluid 475 /UL (0-2000)
[2023-11-26 09:02] LABS: Nucleated Cells, Body Fluid 1240 /UL
== END 2023-11-25 14:55 | disposition home or self-care (01) ==
LOC: ORWHC2ENDO 11:10
PROVIDERS: ATTEND Internal Medicine
DX: J44.1 Chronic obstructive pulmonary disease with (acute) exacerbation (principal); E78.5 Hyperlipidemia, unspecified; K21.9 Gastro-esophageal reflux disease without esophagitis; Z87.891 Personal history of nicotine dependence; Z79.899 Other long term (current) drug therapy; Z88.8 Allergy status to other drugs, medicaments and biological substances
CPT/HCPCS: 88108; 88305; 89050; 87070; 87205; 87116; 87102; 87077; 87186; 87206; 31645; 31624; J0330; J2001; J2704

== ENCOUNTER → 2023-12-07 | Outpatient (CLI) | payer MEDICARE ==
--- NOTE | 2023-12-07 13:39 | MM ---
Reason for Exam: Hx of breast cancer, conservation therapy. Last mammogram was performed 1 year(s) and 3 month(s) ago. Patient History: Menarche at age 12. Patient has no children. Breast cancer, right, age 72. Hormonal Contraceptives for 1 year until age 21. 12/21/2022, Lumpectomy on the Right side. 12/21/2022, Malignant MG pre op needle loc RT on the right side. 10/08/2022, Malignant MG stereo VAD BX RT on the right side. Core Biopsy on the Left side. 01/14/2004, Benign Stereotactic Core Biopsy on the left side. Sister had breast cancer, age 58. Prior Study Comparison: 03/23/2014 Bilateral Screening Mammogram, [facility]. 04/05/2015 Bilateral Screening Mammogram, [facility]. 04/09/2016 Bilateral Screening Mammogram, [facility]. 04/14/2017 Bilateral Screening Mammogram, [facility]. 05/12/2018 Bilateral Screening Mammogram, [facility]. 06/08/2019 Bilateral Screening Mammogram, [facility]. 08/14/2020 Bilateral Screening Mammogram, [facility]. 09/19/2021 Bilateral Screening Mammogram, [facility]. 09/21/2022 Bilateral MG 3D screening mammo w/cad, [facility]. 09/24/2022 Right MG 3D work up w/cad RT, [facility]. 11/27/2022 Bilateral MR breast bilat wo/w con, [facility]. Tissue Density: The breasts are extremely dense, which lowers the sensitivity of mammography. Findings: Analyzed By CAD. The pattern is symmetrical. The prior lumpectomy with multiple surgical clips within the right mid breast. Vascular calcification appears to be present. There are benign appearing spherical calcifications present bilaterally. Core marker is within the left breast. Additional surgical clips are within the right axillary region on the mediolateral view. No suspicious groups of microcalcifications, spiculated or lobular masses, architectural distortion or other secondary signs of malignancy are mammographically apparent. Overall Assessment: Benign, BI-RAD 2 Management: Diagnostic Mammogram of both breasts in 1 year. A negative mammogram report should not preclude additional follow up of suspicious palpable abnormalities. Patient should continue monthly self breast exam. A clinical breast exam by your physician is recommended on an annual basis and results should be correlated with mammographic findings. Note on Lesley scores and lifetime risk: 1. A Lesley score greater than 3% is considered moderate risk. If this is the case, consider specialist referral to assess eligibility for a risk reducing agent. 2. If overall lifetime risk for the development of breast cancer is 20% or higher, the patient may qualify for future screening with alternating mammogram and breast MRI. Electronically signed and approved by: Jluis Fay D.O. Radiologis
== END | disposition home or self-care (01) ==
LOC: RADMAMWWP 13:02
PROVIDERS: ATTEND Radiology Radiation Oncology
DX: R92.343 Mammographic extreme density, bilateral breasts (principal); C50.411 Malignant neoplasm of upper-outer quadrant of right female breast; C77.3 Secondary and unspecified malignant neoplasm of axilla and upper limb lymph nodes; R92.1 Mammographic calcification found on diagnostic imaging of breast; Z80.3 Family history of malignant neoplasm of breast
CPT/HCPCS: 77066; G0279; 77062

== ENCOUNTER 2024-01-27 11:17 | Inpatient (IN) | payer MEDICARE ==
[2024-01-27] MEDS: IPRATROPIUM-ALBUTEROL 3 ML NEB INHALATION STA (12:19)
[2024-01-27] MEDS ORDERED: DEXTROSE ONE (12:21)
[2024-01-27] MEDS ORDERED: WATER ONE (12:21)
[2024-01-27] MEDS: methylPREDNISolone SOD SUCCI 125 MG/2 ML VIAL IV STA (12:33)
[2024-01-27] MEDS: MAGNESIUM SULFATE-D5W PMX 1 GM in DEXTROSE/WATER 1 100ML.BAG IVPB STA (12:34)
[2024-01-27 12:43] LABS: Basophils % (A) 0 %; Eosinophils % (A) 1 %; HCT 39.5 % (34.0-46.0); HGB 12.8 gm/dL (11.4-16.0); Lymphocytes # (A) 0.4 k/uL (1.0-4.8); Lymphocytes % (A) 7 %; MCH 31.8 pg (25.0-35.0); MCHC 32.5 g/dL (31.0-37.0); MCV 97.9 fL (80.0-100.0); Mean Platelet Volume 6.8; Monocytes # (A) 0.3 k/uL (0-1.0); Monocytes % (A) 6 %; Neutrophils # (A) 4.6 k/uL (1.3-7.7); Neutrophils % (A) 85 %; Platelet Count 245 k/uL (150-450); RBC 4.04 m/uL (3.80-5.40); RDW 14.5 % (11.5-15.5); WBC 5.4 k/uL (3.8-10.6)
[2024-01-27 12:55] LABS: Partial Thromboplastin Time 22.4 sec (22.0-30.0); Prothrombin Time 10.8 sec (10.0-12.5)
--- NOTE | 2024-01-27 13:08 | XR ---
EXAMINATION TYPE: XR chest 2V DATE OF EXAM: 01/27/2024 1:01 PM CLINICAL INDICATION: Female, 73 years old with history of difficulty breathing; [facility] COMPARISON: Chest radiographs from 02/24/2023 TECHNIQUE: XR chest 2V Frontal view of the chest. FINDINGS: Lungs/Pleura: There is flattening of the diaphragm with increased lucency of the lungs. No evidence o f pneumothorax, pleural effusion or focal consolidation. Pulmonary vascularity: Unremarkable. Heart/mediastinum: Cardiomediastinal silhouette is unremarkable. Musculoskeletal: No acute osseous pathology. IMPRESSION: 1. No acute cardiopulmonary disease process. 2. COPD changes.
[2024-01-27 13:23] LABS: ALT 20 U/L (4-34); AST 30 U/L (14-36); African American GFR (CKD) >90 (>60 ml/min/1.73 sqM); Albumin 3.8 g/dL (3.5-5.0); Alkaline Phosphatase 83 U/L (38-126); Anion Gap 3 mmol/L; Blood Urea Nitrogen 10 mg/dL (7-17); Calcium 9.5 mg/dL (8.4-10.2); Carbon Dioxide 29 mmol/L (22-30); Chloride 101 mmol/L (98-107); Glucose 107 mg/dL (74-99); Non-African American GFR(CKD) 88 (>60 ml/min/1.73 sqM); Potassium 4.4 mmol/L (3.5-5.1); Sodium 133 mmol/L (137-145); Total Bilirubin 0.8 mg/dL (0.2-1.3); Total Protein 6.4 g/dL (6.3-8.2)
[2024-01-27 13:32] LABS: NT-Pro-B-Type Natriuretic Pept 401 pg/mL
--- NOTE | 2024-01-27 14:19 | ED ---
SOB HPI - General Chief Complaint: Shortness of Breath Stated Complaint: DOMINIQUE,COPD Time Seen by Provider: 01/27/24 11:25 Source: patient Mode of arrival: ambulatory Limitations: no limitations - History of Present Illness Initial Comments: 73-year-old female with past medical history of COPD on home O2 when needed who presents to the emergency department from Dr. Overton's office. Has been having worsening shortness of breath. She has been using her nebulizer at home. She takes steroids daily. Symptoms have not been improving. She Dr. Overton in office today who recommended that the patient come to the hospital as he thought she required admission. Denies any chest pain. No fevers. Has a chronic cough. No other alleviating, precipitating or modifying factors - Related Data Home Medications Medication Instructions Recorded Confirmed Bimatoprost [Lumigan 0.01% Ophth 1 drop BOTH EYES HS 10/13/17 01/27/24 Soln] Mometasone/Formoterol [Dulera 200 2 puff INHALATION RT-BID 10/13/17 01/27/24 Mcg-5 Mcg Inhaler] Atorvastatin [Lipitor] 10 mg PO W/SUPPER 03/19/21 01/27/24 Omeprazole 20 mg PO DAILY 12/18/22 01/27/24 Ipratropium-Albuterol Nebulize 3 ml INHALATION RT-QID 06/25/23 01/27/24 [Duoneb 0.5 mg-3 mg/3 ml Soln] Tiotropium 18 Mcg/Puff [Spiriva] 1 puff INHALATION RT-DAILY 06/25/23 01/27/24 predniSONE 5 mg PO DAILY 06/25/23 01/27/24 Budesonide [Pulmicort] 1 mg INHALATION RT-DAILY 11/22/23 01/27/24 Calcium 600mg W/Vitamin D 1 tab PO W/SUPPER 01/27/24 01/27/24 carBAMazepine CHEW [TEGretol Chew] 100 mg PO DAILY PRN 01/27/24 01/27/24 guaiFENesin-DM 600/30MG [Mucinex 1 tab PO BID 01/27/24 01/27/24 Dm] Allergies Allergy/AdvReac Type Severity Reaction Status Date / Time budesonide [From Symbicort] AdvReac ANXIETY Verified 01/27/24 14:41 formoterol [From Symbicort] AdvReac ANXIETY Verified 01/27/24 14:41 zolpidem [From Ambien] AdvReac Hallucinati Verified 01/27/24 14:41 ons Review of Systems ROS Statement: Those systems with pertinent positive or pertinent negative responses have been documented in the HPI. ROS Other: All systems not noted in ROS Statement are negative. Past Medical History Past Medical History: COPD, Eye Disorder, Hyperlipidemia Additional Past Medical History / Comment(s): Bronchitis, bilateral eyes with increased intraocular pressure-not glaucoma yet, neuralgia R side forhead in past,daily steroid, FOOD GETS STUCK IN THROAT, BLOATING, wears oxygen 2lnc as needed History of Any Multi-Drug Resistant Organisms: None Reported Past Surgical History: Breast Surgery, Hernia Repair, Orthopedic Surgery Additional Past Surgical History / Comment(s): Bilateral carpal tunnel; bilateral cataract removal with lens, bronchoscopy, R inguinal hernia repair, colonoscopy RT BREAST BIOSPY, and the node had chemo and radiation july 2023, colonoscopy Past Anesthesia/Blood Transfusion Reactions: No Reported Reaction Additional Past Anesthesia/Blood Transfusion Reaction / Comment(s): no blood transfusion Past Psychological History: No Psychological Hx Reported Smoking Status: Former smoker Past Alcohol Use History: None Reported Past Drug Use History: None Reported - Past Family History Father Family Medical History: COPD Additional Family Medical History / Comment(s): Father in his 50s of COPD. He was a smoker. Mother Family Medical History: CVA/TIA, Hypertension, Pneumonia Additional Family Medical History / Comment(s): Mother fell at age 85 and fractured her hip. Post op she became HTN and had a stroke and then ended up with pneumonia and . Sister(s) Family Medical History: Cancer Additional Family Medical History / Comment(s): breast General Exam Limitations: no limitations General appearance: alert, in no apparent distress Head exam: Present: atraumatic, normocephalic, normal inspection Eye exam: Present: normal appearance, PERRL, EOMI. Absent: scleral icterus, conjunctival injection, periorbital swelling ENT exam: Present: normal exam, mucous membranes moist Neck exam: Present: normal inspection. Absent: tenderness, meningismus, lymphadenopathy Respiratory exam: Present: wheezes, decreased breath sounds. Absent: respiratory distress, rales, rhonchi, stridor Cardiovascular Exam: Present: regular rate, normal rhythm, normal heart sounds. Absent: systolic murmur, diastolic murmur, rubs, gallop, clicks GI/Abdominal exam: Present: soft, normal bowel sounds. Absent: distended, tenderness, guarding, rebound, rigid Extremities exam: Present: normal inspection, full ROM, normal capillary refill. Absent: tenderness, pedal edema, joint swelling, calf tenderness Back exam: Present: normal inspection Neurological exam: Present: alert, oriented X3, CN II-XII intact Psychiatric exam: Present: normal affect, normal mood Skin exam: Present: warm, dry, intact, normal color. Absent: rash Course Vital Signs 01/27/24 01/27/24 01/27/24 11:23 12:11 12:19 Temperature 97.7 F Pulse Rate 108 H 94 Respiratory 24 22 Rate Blood Pressure 184/92 O2 Sat by Pulse 97 Oximetry 01/27/24 01/27/24 01/27/24 12:20 12:27 12:35 Temperature 98.3 F Pulse Rate 92 97 98 Respiratory 20 22 Rate Blood Pressure 180/102 178/91 O2 Sat by Pulse 98 97 Oximetry 01/27/24 01/27/24 01/27/24 13:40 14:15 15:19 Temperature 98.5 F 98.1 F Pulse Rate 105 H 102 H 111 H Respiratory 22 24 Rate Blood Pressure 166/86 162/86 O2 Sat by Pulse 96 96 Oximetry 01/27/24 01/27/24 01/27/24 15:22 15:30 16:19 Temperature 98.3 F Pulse Rate 110 H 128 H Respiratory 22 Rate Blood Pressure 166/81 O2 Sat by Pulse 94 L 95 Oximetry 01/27/24 01/27/24 01/27/24 17:45 18:04 20:29 Temperature 99.0 F Pulse Rate 130 H 120 H 76 Respiratory 26 H 22 18 Rate Blood Pressure 173/92 157/86 O2 Sat by Pulse 93 L 93 L Oximetry 01/27/24 01/27/24 01/27/24 20:35 22:26 23:10 Temperature 98 F Pulse Rate 79 116 H Respiratory 18 16 Rate Blood Pressure 132/72 O2 Sat by Pulse 95 Oximetry 01/27/24 01/28/24 01/28/24 23:55 02:19 06:05 Temperature Pulse Rate 105 H 95 Respiratory 16 19 18 Rate Blood Pressure 132/72 138/73 O2 Sat by Pulse 93 L 93 L Oximetry 01/28/24 01/28/24 01/28/24 07:00 08:04 08:45 Temperature 97.6 F Pulse Rate 100 98 98 Respiratory 20 20 Rate Blood Pressure 165/86 163/78 O2 Sat by Pulse 94 L 96 Oximetry 01/28/24 01/28/24 01/28/24 11:27 11:57 12:00 Temperature Pulse Rate 105 H 104 H 100 Respiratory 20 18 Rate Blood Pressure 140/71 140/71 O2 Sat by Pulse 92 L 100 Oximetry 01/28/24 01/28/24 01/28/24 14:00 15:32 15:46 Temperature Pulse Rate 107 H 113 H 102 H Respiratory 24 Rate Blood Pressure 128/70 O2 Sat by Pulse 95 Oximetry 01/28/24 01/28/24 16:00 18:00 Temperature Pulse Rate 123 H 118 H Respiratory 17 25 H Rate Blood Pressure 126/63 133/75 O2 Sat by Pulse 94 L 94 L Oximetry Medical Decision Making - Medical Decision Making Was pt. sent in by a medical professional or institution (, PA, VETERINARY SURGERY TECHNICIAN, urgent care, hospital, or [facility]...) When possible be specific @ -Patient is sent in by Dr. Parker Did you speak to anyone other than the patient for history (EMS, parent, family, police, friend...)? What history was obtained from this source @ -Spoke with Dr. Parker Did you review nursing and triage notes (agree or disagree)? Why? @ -I reviewed and agree with nursing and triage notes Were old charts reviewed (outside hosp., previous admission, EMS record, old EKG, old radiological studies, urgent care reports/EKG's, [facility] records)? Report findings @ -No old charts were reviewed Differential Diagnosis (chest pain, altered mental status, abdominal pain women, abdominal pain men, vaginal bleeding, weakness, fever, dyspnea, syncope, headache, dizziness, GI bleed, back pain, seizure, CVA, palpatations, mental health, musculoskeletal)? @ -Differential Dyspnea: Coronary syndrome, arrhythmia, tamponade, asthma, COPD, pulmonary embolism, pneumonia, pneumothorax, pulmonary effusion, anaphylaxis, diabetic ketoacidosis, flailed chest, pulmonary contusion, diaphragmatic rupture, anemia, neuromuscular, this is not meant to be an all-inclusive list. EKG interpreted by me (3pts min.). @ -yes and demonstrates sinus tachycardia with a rate of 101. CA interval 148. QRS 78. QTc of 380. No acute ST segment elevations or depressions X-rays interpreted by me (1pt min.). @ -Yes and demonstrates COPD CT interpreted by me (1pt min.). @ -None done U/S interpreted by me (1pt. min.). @ -None done What testing was considered but not performed or refused? (CT, X-rays, U/S, labs)? Why? @ -None What meds were considered but not given or refused? Why? @ -None Did you discuss the management of the patient with other professionals (professionals i.e. , PA, VETERINARY SURGERY TECHNICIAN, lab, RT, psych nurse, licensed clinical social worker, tunnel worker, teacher, sea air land officer, child support case officer)? Give summary @ -Spoke with Dr. Nolen for admission Was smoking cessation discussed for >3mins.? @ -No Was critical care preformed (if so, how long)? @ -No Were there social determinants of health that impacted care today? How? (Homelessness, low income, unemployed, alcoholism, drug addiction, transportation, low edu. Level, literacy, decrease access to med. care, intermediate, rehab)? @ -No Was there de-escalation of care discussed even if they declined (Discuss DNR or withdrawal of care, Hospice)? DNR status @ -No What co-morbidities impacted this encounter? (DM, HTN, Smoking, COPD, CAD, Cancer, CVA, ARF, Chemo, Hep., AIDS, mental health diagnosis, sleep apnea, morbid obesity)? @ -COPD Was patient admitted / discharged? Hospital course, mention meds given and route, prescriptions, significant lab abnormalities, going to OR and other pertinent info. @ -Admitted. Upon arrival patient seen and evaluated in trauma 1. Thorough history and physical exam was performed. Patient is sent in from pulmonology for admission. Patient already takes steroids daily. She is in acute exacerbation requires IV steroids. Patient was agreeable to admission. Spoke with Dr. Nolen for the admission Undiagnosed new problem with uncertain prognosis? @ -No Drug Therapy requiring intensive monitoring for toxicity (Heparin, Nitro, Insulin, Cardizem)? @ -No Were any procedures done? @ -No Diagnosis/symptom? @ -Acute COPD exacerbation Acute, or Chronic, or Acute on Chronic? @ -Acute on chronic Uncomplicated (without systemic symptoms) or Complicated (systemic symptoms)? @ -Complicated Side effects of treatment? @ -No Exacerbation, Progression, or Severe Exacerbation? @ -Yes Poses a threat to life or bodily function? How? (Chest pain, USA, PA, pneumonia, PE, COPD, DKA, ARF, appy, cholecystitis, CVA, Diverticulitis, Homicidal, Suicidal, threat to staff... and all critical care pts) @ -No - Lab Data Result diagrams: 01/28/24 06:10 01/28/24 06:10 Lab Results 01/27/24 01/27/24 01/27/24 Range/Units 12:09 12:09 12:09 WBC 5.4 (3.8-10.6) k/uL RBC 4.04 (3.80-5.40) m/uL Hgb 12.8 (11.4-16.0) gm/dL Hct 39.5 (34.0-46.0) % MCV 97.9 (80.0-100.0) fL MCH 31.8 (25.0-35.0) pg MCHC 32.5 (31.0-37.0) g/dL RDW 14.5 (11.5-15.5) % Plt Count 245 (150-450) k/uL MPV 6.8 Neutrophils % 85 % Lymphocytes % 7 % Monocytes % 6 % Eosinophils % 1 % Basophils % 0 % Neutrophils # 4.6 (1.3-7.7) k/uL Lymphocytes # 0.4 L (1.0-4.8) k/uL Monocytes # 0.3 (0-1.0) k/uL Eosinophils # 0.0 (0-0.7) k/uL Basophils # 0.0 (0-0.2) k/uL PT 10.8 (10.0-12.5) sec INR 1.0 (<1.2) APTT 22.4 (22.0-30.0) sec Sodium 133 L (137-145) mmol/L Potassium 4.4 (3.5-5.1) mmol/L Chloride 101 (98-107) mmol/L Carbon Dioxide 29 (22-30) mmol/L Anion Gap 3 mmol/L BUN 10 (7-17) mg/dL Creatinine 0.67 (0.52-1.04) mg/dL Est GFR (CKD-EPI)AfAm >90 (>60 ml/min/1.73 sqM) Est GFR (CKD-EPI)NonAf 88 (>60 ml/min/1.73 sqM) Glucose 107 H (74-99) mg/dL Plasma Lactic Acid Jer (0.7-2.0) mmol/L Calcium 9.5 (8.4-10.2) mg/dL Total Bilirubin 0.8 (0.2-1.3) mg/dL AST 30 (14-36) U/L ALT 20 (4-34) U/L Alkaline Phosphatase 83 (38-126) U/L Troponin I (0.000-0.034) ng/mL NT-Pro-B Natriuret Pep 401 pg/mL Total Protein 6.4 (6.3-8.2) g/dL Albumin 3.8 (3.5-5.0) g/dL 01/27/24 01/27/24 Range/Units 12:09 12:09 WBC (3.8-10.6) k/uL RBC (3.80-5.40) m/uL Hgb (11.4-16.0) gm/dL Hct (34.0-46.0) % MCV (80.0-100.0) fL MCH (25.0-35.0) pg MCHC (31.0-37.0) g/dL RDW (11.5-15.5) % Plt Count (150-450) k/uL MPV Neutrophils % % Lymphocytes % % Monocytes % % Eosinophils % % Basophils % % Neutrophils # (1.3-7.7) k/uL Lymphocytes # (1.0-4.8) k/uL Monocytes # (0-1.0) k/uL Eosinophils # (0-0.7) k/uL Basophils # (0-0.2) k/uL PT (10.0-12.5) sec INR (<1.2) APTT (22.0-30.0) sec Sodium (137-145) mmol/L Potassium (3.5-5.1) mmol/L Chloride (98-107) mmol/L Carbon Dioxide (22-30) mmol/L Anion Gap mmol/L BUN (7-17) mg/dL Creatinine (0.52-1.04) mg/dL Est GFR (CKD-EPI)AfAm (>60 ml/min/1.73 sqM) Est GFR (CKD-EPI)NonAf (>60 ml/min/1.73 sqM) Glucose (74-99) mg/dL Plasma Lactic Acid Jer 1.2 (0.7-2.0) mmol/L Calcium (8.4-10.2) mg/dL Total Bilirubin (0.2-1.3) mg/dL AST (14-36) U/L ALT (4-34) U/L Alkaline Phosphatase (38-126) U/L Troponin I <0.012 (0.000-0.034) ng/mL NT-Pro-B Natriuret Pep pg/mL Total Protein (6.3-8.2) g/dL Albumin (3.5-5.0) g/dL Disposition Clinical Impression: Acute exacerbation of chronic obstructive airways disease Disposition: ADMITTED IP TO THIS HOSP Condition: Stable Is patient prescribed a controlled substance at d/c from ED?: No Time of Disposition: 14:20 Decision to Admit Reason: Admit from EC Decision Date: 01/27/24 Decision Time: 14:20
[2024-01-27] MEDS ORDERED: NALOXONE 0.4 MG/ML 1 ML VIAL IV PRN (14:20)
[2024-01-27] MEDS: IPRATROPIUM-ALBUTEROL 3 ML NEB INHALATION SCH (15:18)
--- NOTE | 2024-01-27 18:18 | P.HPIM ---
History of Present Illness H&P Date: 01/27/24 Chief Complaint: Short of breath Very pleasant 73-year-old patient, follows with Dr. Mohan. Zoning Administrator Dr. Parker. Oncologist Dr. Garber. diagnosed with breast cancer. Stage I. Triple negative. Posterior lymph nodes. Received chemotherapy. Patient sent in from the office of her groundhand Dr. Parker. Patient been short of breath all summer. Congested cough. Not able to expectorate. It is all stuck in the chest. On home oxygen 2 L. No fever no chills. Eating fair. Able to get around the house. Family at the bedside. Review of systems: GEN.: Tired EYES: None HEENT: None NECK: None RESPIRATORY: As above CARDIOVASCULAR: None GASTROINTESTINAL: As above GENITOURINARY: None MUSCULOSKELETAL: None LYMPHATICS: None HEMATOLOGICAL: None PSYCHIATRY: None NEUROLOGICAL: None Past medical history to include: COPD, hyperlipidemia, breast cancer triple negative, home oxygen 2 L Social history: Lives alone. . Smoked for about 31 years, stopped around 1999. No alcohol Physical examination: VITAL SIGNS: 99, 120, 22, 157 x 86, 93% room air GENERAL: Propped up in bed, a bit short of breath EYES: Pupils equal. Conjunctiva normal. HEENT: External appearance of nose and ears normal, oral cavity white spots in the r pharynx. NECK: JVD not raised; masses not palpable. HEART: First and second heart sounds are normal; no edema. LUNGS:[ Respiratory rate increased l, diminished breath sounds , expiratory crackles ABDOMEN: Soft, nontender, liver spleen not palpable, no masses palpable. PSYCH: [Alert and oriented x3; mood and affect anxious MUSCULOSKELETAL:No Clubbing/cyanosis;muscles-grossly intact. Evidence of OA NEUROLOGICAL: Cranial nerves grossly intact; no facial asymmetry, power and sensation grossly intact. LYMPHATICS: No lymph nodes palpable in the axilla and neck INVESTIGATIONS, reviewed in the clinical context: January 27, 2024: White count 5.4 hemoglobin 12.8 platelets 245 sodium 133 potassium 4.4 creatinine 0.67 Troponin I less than 0.012 proBNP 401 EKG tracing personally reviewed by me-sinus tachycardia. P pulmonale. Chest x-ray film personally reviewed by me-hyperinflated. Interstitial changes Assessment and plan: -Acute COPD exacerbation in a prior smoker, steroid-dependent DuoNeb. IV Solu-Medrol. Nebulized Pulmicort -Acute severe tracheobronchitis. Patient said previous bronchial lavage Mucinex. humidified oxygen. Flutter valve. Doxycycline -Chronic hypoxic respiratory failure secondary to underlying COPD 2 L of oxygen at home -Hyperlipidemia Lipitor 10 mg nightly -GERD Omeprazole -Hyperlipidemia Lipitor 10 mg with supper -Breast cancer-, triple negative. Received chemotherapy being followed by Dr. Garber from oncology. -Full code Dr. Patel from pulmonary consulted. Discussed with patient family at the bedside. Past Medical History Past Medical History: COPD, Eye Disorder, Hyperlipidemia Additional Past Medical History / Comment(s): Bronchitis, bilateral eyes with increased intraocular pressure-not glaucoma yet, neuralgia R side forhead in past,daily steroid, FOOD GETS STUCK IN THROAT, BLOATING, wears oxygen 2lnc as needed History of Any Multi-Drug Resistant Organisms: None Reported Past Surgical History: Breast Surgery, Hernia Repair, Orthopedic Surgery Additional Past Surgical History / Comment(s): Bilateral carpal tunnel; bilateral cataract removal with lens, bronchoscopy, R inguinal hernia repair, colonoscopy RT BREAST BIOSPY, and the node had chemo and radiation july 2023, colonoscopy Past Anesthesia/Blood Transfusion Reactions: No Reported Reaction Additional Past Anesthesia/Blood Transfusion Reaction / Comment(s): no blood transfusion Past Psychological History: No Psychological Hx Reported Smoking Status: Former smoker Past Alcohol Use History: None Reported Past Drug Use History: None Reported - Past Family History Father Family Medical History: COPD Additional Family Medical History / Comment(s): Father in his 50s of COPD. He was a smoker. Mother Family Medical History: CVA/TIA, Hypertension, Pneumonia Additional Family Medical History / Comment(s): Mother fell at age 85 and fractured her hip. Post op she became HTN and had a stroke and then ended up with pneumonia and . Sister(s) Family Medical History: Cancer Additional Family Medical History / Comment(s): breast Medications and Allergies Home Medications Medication Instructions Recorded Confirmed Type Bimatoprost [Lumigan 0.01% Ophth 1 drop BOTH EYES HS 10/13/17 01/27/24 History Soln] Mometasone/Formoterol [Dulera 200 2 puff INHALATION RT-BID 10/13/17 01/27/24 History Mcg-5 Mcg Inhaler] Atorvastatin [Lipitor] 10 mg PO W/SUPPER 03/19/21 01/27/24 History Omeprazole 20 mg PO DAILY 12/18/22 01/27/24 History Ipratropium-Albuterol Nebulize 3 ml INHALATION RT-QID 06/25/23 01/27/24 History [Duoneb 0.5 mg-3 mg/3 ml Soln] Tiotropium 18 Mcg/Puff [Spiriva] 1 puff INHALATION RT-DAILY 06/25/23 01/27/24 Hi story predniSONE 5 mg PO DAILY 06/25/23 01/27/24 History Budesonide [Pulmicort] 1 mg INHALATION RT-DAILY 11/22/23 01/27/24 History Calcium 600mg W/Vitamin D 1 tab PO W/SUPPER 01/27/24 01/27/24 History carBAMazepine CHEW [TEGretol Chew] 100 mg PO DAILY PRN 01/27/24 01/27/24 History guaiFENesin-DM 600/30MG [Mucinex 1 tab PO BID 01/27/24 01/27/24 History Dm] Allergies Allergy/AdvReac Type Severity Reaction Status Date / Time budesonide [From Symbicort] AdvReac ANXIETY Verified 01/27/24 14:41 formoterol [From Symbicort] AdvReac ANXIETY Verified 01/27/24 14:41 zolpidem [From Ambien] AdvReac Hallucinati Verified 01/27/24 14:41 ons Physical Exam Vitals: Vital Signs Temp Pulse Resp BP Pulse Ox 01/27/24 17:45 99.0 F 130 H 26 H 173/92 93 L 01/27/24 16:19 98.3 F 128 H 22 166/81 95 01/27/24 15:30 110 H 01/27/24 15:22 94 L 01/27/24 15:19 111 H 01/27/24 14:15 98.1 F 102 H 24 162/86 96 01/27/24 13:40 98.5 F 105 H 22 166/86 96 01/27/24 12:35 98 22 178/91 97 01/27/24 12:27 97 01/27/24 12:20 98.3 F 92 20 180/102 98 01/27/24 12:19 94 01/27/24 12:11 22 01/27/24 11:23 97.7 F 108 H 24 184/92 97 Intake and Output 01/27/24 01/27/24 01/27/24 06:59 14:59 22:59 Other: Weight 61.235 kg Results CBC & Chem 7: 01/27/24 12:09 01/27/24 12:09 Labs: Abnormal Lab Results - Last 24 Hours (Table) 01/27/24 01/27/24 Range/Units 12:09 12:09 Lymphocytes # 0.4 L (1.0-4.8) k/uL Sodium 133 L (137-145) mmol/L Glucose 107 H (74-99) mg/dL
[2024-01-27] MEDS: ATORVASTATIN 10 MG TAB PO SCH (20:32)
[2024-01-27] MEDS: guaiFENesin 600 MG TABLET.ER PO SCH (20:32)
[2024-01-27] MEDS: CALCIUM CARB-VIT D 500 MG-5 MCG TAB PO SCH (20:32)
[2024-01-27] MEDS: DOXYCYCLINE 100 MG CAP PO SCH (20:33)
[2024-01-27] MEDS: DILTIAZEM ORAL 30 MG TAB PO SCH (20:34)
[2024-01-27] MEDS: BUDESONIDE 1 MG/2 ML NEBU INHALATION SCH (21:26)
[2024-01-27] MEDS ORDERED: IPRATROPIUM-ALBUTEROL 3 ML NEB INHALATION PRN (21:27)
[2024-01-27] MEDS: LATANOPROST 0.005% OPHTH DROPS 2.5 ML BTL BOTH EYES SCH (22:06)
[2024-01-27] MEDS: ACETAMINOPHEN TAB 325 MG TAB PO PRN (22:35)
[2024-01-28] MEDS: methylPREDNISolone SOD SUCCI 40 MG/ML 1 ML VIAL IV SCH (08:07)
[2024-01-28] MEDS: PANTOPRAZOLE 40 MG TABLET PO SCH (08:08)
[2024-01-28] MEDS: IPRATROPIUM-ALBUTEROL 3 ML NEB INHALATION SCH (08:45)
[2024-01-28 08:52] LABS: Basophils # (A) 0.01 X 10*3/uL (0.00-0.10); Basophils % (A) 0.1 %; Eosinophils # (A) 0 X 10*3/uL (0.04-0.35); Eosinophils % (A) 0 %; HCT 37.6 % (37.2-46.3); HGB 12.5 g/dL (12.0-15.0); Lymphocytes # (A) 0.25 X 10*3/uL (0.90-5.00); Lymphocytes % (A) 3.1 %; MCH 32.7 pg (27.0-32.0); MCHC 33.2 g/dL (32.0-37.0); MCV 98.4 FL (80.0-97.0); Mean Platelet Volume 9.3 FL (9.5-12.2); Monocytes # (A) 0.42 X 10*3/uL (0.20-1.00); Monocytes % (A) 5.3 %; NRBC Per 100 WBC 0 X 10*3/uL (0.00-0.01); Neutrophils # (A) 7.28 X 10*3/uL (1.80-7.70); Neutrophils % (A) 91.1 %; Platelet Count 244 X 10*3/uL (140-440); RBC 3.82 X 10*6/uL (4.10-5.20); RDW 14.7 % (11.5-14.5); WBC 7.99 X 10*3/uL (4.50-10.00)
[2024-01-28 09:10] LABS: BUN/Creat Ratio 14.86 Ratio (12.00-20.00); Blood Urea Nitrogen 10.4 mg/dL (9.0-27.0); Carbon Dioxide 26.2 mmol/L (21.6-31.8); Chloride 98 mmol/L (96-109); Glucose 141 mg/dL (70-110); Potassium 4.5 mmol/L (3.5-5.5); Sodium 136 mmol/L (135-145)
[2024-01-28] MEDS: methylPREDNISolone SOD SUCCI 125 MG/2 ML VIAL IV SCH (12:13)
--- NOTE | 2024-01-28 12:29 | P.CNPUL ---
History of Present Illness Consult date: 01/28/24 Requesting physician: Kamlesh Pimentel Reason for consult: dyspnea, COPD Chief complaint: Shortness of breath, cough, congestion History of present illness: This is a very pleasant 73-year-old female patient with a known history of oxygen dependent COPD her FEV1 value was 30% of predicted, breast cancer completed chemotherapy in July 2023, hyperlipidemia, gastroesophageal reflux disease, former smoker. She presented here to the emergency room yesterday with complaints of increasing shortness of breath, cough and congestion. Chest x-ray reveals no acute pulmonary process. Evidence of COPD changes. Count 7.9. Hemoglobin 12.5. Platelets 244. Sodium 136. Potassium 4.5. Bicarb 26. BUN 10. Creatinine 0.7. Glucose 141. Troponin negative x 1. proBNP 401. She is seen today in consultation in the emergency department. She is sitting up in a chair. Awake and alert in no acute distress. She does have bilateral end expiratory wheeze, loose nonproductive cough. Denies any fever or chills. No hemoptysis. Has been initiated on DuoNeb inhalations, Pulmicort and performing scintillations, Solu-Medrol. On empiric antibiotics in the form of doxycycline. Procalcitonin pending. Review of Systems REVIEW OF SYSTEMS: CONSTITUTIONAL: Denies any recent significant weight loss or weight gain. EYES: Denies change in vision. EARS, NOSE, MOUTH, THROAT: Denies headaches, denies sore throat. CARDIOVASCULAR: Denies chest pain, palpitations or syncopal episodes. RESPIRATORY: Positive for shortness of breath, cough, congestion no hemoptysis. GASTROINTESTINAL: Denies change in appetite, denies abdominal pain GENITOURINARY: Denies hematuria, denies infections. MUSKULOSKELETAL: Denies pain, denies swelling. INTEGUMENTARY: Denies rash, denies eczema. NEUROLOGICAL: Denies recent memory loss, no recent seizure activity. PSYCHIATRIC: Denies anxiety, denies depression. HEMATOLOGIC/LYMPHATIC: Denies anemia, denies enlarged lymph nodes. Past Medical History Past Medical History: COPD, Eye Disorder, Hyperlipidemia Additional Past Medical History / Comment(s): Bronchitis, bilateral eyes with increased intraocular pressure-not glaucoma yet, neuralgia R side forhead in past,daily steroid, FOOD GETS STUCK IN THROAT, BLOATING, wears oxygen 2lnc as needed History of Any Multi-Drug Resistant Organisms: None Reported Past Surgical History: Breast Surgery, Hernia Repair, Orthopedic Surgery Additional Past Surgical History / Comment(s): Bilateral carpal tunnel; bilateral cataract removal with lens, bronchoscopy, R inguinal hernia repair, colonoscopy RT BREAST BIOSPY, and the node had chemo and radiation july 2023, colonoscopy Past Anesthesia/Blood Transfusion Reactions: No Reported Reaction Additional Past Anesthesia/Blood Transfusion Reaction / Comment(s): no blood transfusion Past Psychological History: No Psychological Hx Reported Smoking Status: Former smoker Past Alcohol Use History: None Reported Past Drug Use History: None Reported - Past Family History Father Family Medical History: COPD Additional Family Medical History / Comment(s): Father in his 50s of COPD. He was a smoker. Mother Family Medical History: CVA/TIA, Hypertension, Pneumonia Additional Family Medical History / Comment(s): Mother fell at age 85 and fractured her hip. Post op she became HTN and had a stroke and then ended up with pneumonia and . Sister(s) Family Medical History: Cancer Additional Family Medical History / Comment(s): breast Medications and Allergies Home Medications Medication Instructions Recorded Confirmed Type Bimatoprost [Lumigan 0.01% Ophth 1 drop BOTH EYES HS 10/13/17 01/27/24 History Soln] Mometasone/Formoterol [Dulera 200 2 puff INHALATION RT-BID 10/13/17 01/27/24 History Mcg-5 Mcg Inhaler] Atorvastatin [Lipitor] 10 mg PO W/SUPPER 03/19/21 01/27/24 History Omeprazole 20 mg PO DAILY 12/18/22 01/27/24 History Ipratropium-Albuterol Nebulize 3 ml INHALATION RT-QID 06/25/23 01/27/24 History [Duoneb 0.5 mg-3 mg/3 ml Soln] Tiotropium 18 Mcg/Puff [Spiriva] 1 puff INHALATION RT-DAILY 06/25/23 01/27/24 History predniSONE 5 mg PO DAILY 06/25/23 01/27/24 History Budesonide [Pulmicort] 1 mg INHALATION RT-DAILY 11/22/23 01/27/24 History Calcium 600mg W/Vitamin D 1 tab PO W/SUPPER 01/27/24 01/27/24 History carBAMazepine CHEW [TEGretol Chew] 100 mg PO DAILY PRN 01/27/24 01/27/24 History guaiFENesin-DM 600/30MG [Mucinex 1 tab PO BID 01/27/24 01/27/24 History Dm] Allergies Allergy/AdvReac Type Severity Reaction Status Date / Time budesonide [From Symbicort] AdvReac ANXIETY Verified 01/27/24 14:41 formoterol [From Symbicort] AdvReac ANXIETY Verified 01/27/24 14:41 zolpidem [From Ambien] AdvReac Hallucinati Verified 01/27/24 14:41 ons Physical Exam Osteopathic Statement: *. No significant issues noted on an osteopathic structural exam other than those noted in the History and Physical/Consult. Vitals: Vital Signs Temp Pulse Resp BP Pulse Ox 01/28/24 11:57 104 H 01/28/24 11:27 105 H 20 140/71 92 L 01/28/24 08:45 98 01/28/24 08:04 97.6 F 98 20 163/78 96 01/28/24 07:00 100 20 165/86 94 L 01/28/24 06:05 18 01/28/24 02:19 95 19 138/73 93 L 01/27/24 23:55 105 H 16 132/72 93 L 01/27/24 23:10 98 F 01/27/24 22:26 116 H 16 132/72 95 01/27/24 20:35 79 18 01/27/24 20:29 76 18 01/27/24 18:04 120 H 22 157/86 93 L 01/27/24 17:45 99.0 F 130 H 26 H 173/92 93 L 01/27/24 16:19 98.3 F 128 H 22 166/81 95 01/27/24 15:30 110 H 01/27/24 15:22 94 L 01/27/24 15:19 111 H 01/27/24 14:15 98.1 F 102 H 24 162/86 96 01/27/24 13:40 98.5 F 105 H 22 166/86 96 01/27/24 12:35 98 22 178/91 97 01/27/24 12:27 97 01/27/24 12:20 98.3 F 92 20 180/102 98 01/27/24 12:19 94 GENERAL EXAM: Alert, pleasant 73-year-old female, on room air, fairly comfortable in no apparent distress. HEAD: Normocephalic. EYES: Normal reaction of pupils, equal size. NOSE: Clear with pink turbinates. THROAT: No erythema or exudates. NECK: No masses, no JVD. CHEST: No chest wall deformity. LUNGS: Equal air entry with bilateral end expiratory wheeze, few scattered rhonchi, diminished. CVS: S1 and S2 normal with no audible murmur, regular rhythm. ABDOMEN: No hepatosplenomegaly, normal bowel sounds, no guarding or rigidity. SPINE: No scoliosis or deformity SKIN: No rashes CENTRAL NERVOUS SYSTEM: No focal deficits, tone is normal in all 4 extremities. EXTREMITIES: There is no peripheral edema. No clubbing, no cyanosis. Peripheral pulses are intact. Results - Laboratory Findings CBC and BMP: 01/28/24 06:10 01/28/24 06:10 PT/INR, D-dimer PT 10.8 sec (10.0-12.5) 01/27/24 12:09 INR 1.0 (<1.2) 01/27/24 12:09 Abnormal lab findings: Abnormal Labs 01/27/24 01/27/24 01/28/24 12:09 12:09 06:10 RBC 3.82 L MCV 98.4 H MCH 32.7 H RDW 14.7 H MPV 9.3 L Lymphocytes # 0.4 L 0.25 L Eosinophils # 0 L Sodium 133 L Glucose 107 H 01/28/24 06:10 RBC MCV MCH RDW MPV Lymphocytes # Eosinophils # Sodium Glucose 141 H - Diagnostic Findings Chest x-ray: image reviewed Assessment and Plan Assessment: Acute exacerbation of chronic obstructive pulmonary disease Severe Gold stage IV chronic obstructive pulmonary disease with an FEV1 value 30% of predicted Former smoker Breast cancer, status post chemotherapy completed in July 2023 Hyperlipidemia Gastroesophageal reflux disease Plan: The patient was seen and evaluated Chest x-ray, labs and medications reviewed Currently stable and on room air Continue DuoNeb and elations, Pulmicort and performing scintillations Continue IV Solu-Medrol Check a procalcitonin Continue doxycycline for now We will continue to follow and make further recommendations based on her clinical status I have personally seen and examined the patient, performed the documentation and the assessment and plan as written. Number of minutes spent on the visit: 20.
--- NOTE | 2024-01-28 14:59 | P.PN ---
Progress Note - Text Progress Note Date: 01/28/24 Chief Complaint: Short of breath Very pleasant 73-year-old patient, follows with Dr. Mohan. Radiotelegraphist Dr. Parker. Oncologist Dr. Garber. diagnosed with breast cancer. Stage I. Triple negative. Posterior lymph nodes. Received chemotherapy. Patient sent in from the office of her process controls technician Dr. Parker. Patient been short of breath all summer. Congested cough. Not able to expectorate. It is all stuck in the chest. On home oxygen 2 L. No fever no chills. Eating fair. Able to get around the house. Family at the bedside. January 27: Patient overflowing the ER. Up in a chair. Congested cough. No expectoration. I-S and flutter valve ordered. Told patient to use every 1015 minutes. No lavage per pulmonary. Patient IV Solu-Medrol. Mucinex. DuoNeb. Eating well Active Medications Acetaminophen (Acetaminophen Tab 325 Mg Tab) 650 mg PO Q6HR PRN PRN Reason: Mild Pain or Fever > 100.5 Last Admin: 01/27/24 22:35 Dose: 650 mg Albuterol/Ipratropium (Ipratropium-Albuterol 3 Ml Neb) 3 ml INHALATION RT-QID [facility] Last Admin: 01/28/24 11:55 Dose: 3 ml Albuterol/Ipratropium (Ipratropium-Albuterol 3 Ml Neb) 3 ml INHALATION RT-Q2H PRN PRN Reason: Shortness Of Breath Or Wheezing Atorvastatin Calcium (Atorvastatin 10 Mg Tab) 10 mg PO W/SUPPER [facility] Last Admin: 01/27/24 20:32 Dose: 10 mg Budesonide (Budesonide 1 Mg/2 Ml Nebu) 1 mg INHALATION RT-BID [facility] Last Admin: 01/28/24 08:45 Dose: 1 mg Calcium Carbonate (Calcium Carb-Vit D 500 Mg-5 Mcg Tab) 1 each PO W/SUPPER [facility] Last Admin: 01/27/24 20:32 Dose: 1 each Carbamazepine (Carbamazepine Chew 100 Mg Chew) 100 mg PO DAILY PRN PRN Reason: nerve pain Diltiazem HCl (Diltiazem Oral 30 Mg Tab) 30 mg PO TID [facility] Last Admin: 01/28/24 08:08 Dose: 30 mg Doxycycline Monohydrate (Doxycycline 100 Mg Cap) 100 mg PO BID [facility]; Protocol Last Admin: 01/28/24 08:08 Dose: 100 mg Formoterol Fumarate (Formoterol Fumarate 20 Mcg/2 Ml Nebu) 20 mcg INHALATION RT-BID [facility] Guaifenesin (Guaifenesin 600 Mg Tablet.Er) 600 mg PO QID [facility] Last Admin: 01/28/24 13:44 Dose: 600 mg Latanoprost (Latanoprost 0.005% Ophth Drops 2.5 Ml Btl) 1 drops BOTH EYES HS [facility] Last Admin: 01/27/24 22:06 Dose: 1 drops Methylprednisolone Sodium Succinate (Methylprednisolone Sod Succi 125 Mg/2 Ml Vial) 60 mg IV Q6HR [facility] Last Admin: 01/28/24 12:13 Dose: 60 mg Naloxone HCl (Naloxone 0.4 Mg/Ml 1 Ml Vial) 0.2 mg IV Q2M PRN PRN Reason: Opioid Reversal Pantoprazole Sodium (Pantoprazole 40 Mg Tablet) 40 mg PO DAILY [facility] Last Admin: 01/28/24 08:08 Dose: 40 mg Past medical history to include: COPD, hyperlipidemia, breast cancer triple negative, home oxygen 2 L Social history: Lives alone. . Smoked for about 31 years, stopped around 1999. No alcohol Physical examination: VITAL SIGNS: 105, 20, 140 x 71, 92% room air GENERAL: Up in chair, congested cough EYES: Pupils equal. Conjunctiva normal. HEENT: External appearance of nose and ears normal, oral cavity white spots in the r pharynx. NECK: JVD not raised; masses not palpable. HEART: First and second heart sounds are normal; no edema. LUNGS:[ Respiratory rate increased l, diminished breath sounds , expiratory crackles ABDOMEN: Soft, nontender, liver spleen not palpable, no masses palpable. PSYCH: [Alert and oriented x3; mood and affect anxious MUSCULOSKELETAL:No Clubbing/cyanosis;muscles-grossly intact. Evidence of OA INVESTIGATIONS, reviewed in the clinical context: January 27: White count 7.9 hemoglobin 12.5 platelets 244 sodium 136 potassium 4.5 creatinine 0.7 January 27, 2024: White count 5.4 hemoglobin 12.8 platelets 245 sodium 133 potassium 4.4 creatinine 0.67 Troponin I less than 0.012 proBNP 401 EKG tracing personally reviewed by me-sinus tachycardia. P pulmonale. Chest x-ray film personally reviewed by me-hyperinflated. Interstitial changes Assessment and plan: -Acute COPD exacerbation in a prior smoker, steroid-dependent: Slow to respond DuoNeb. IV Solu-Medrol. Nebulized Pulmicort -Acute severe tracheobronchitis. Patient said previous bronchial lavage Mucinex. humidified oxygen. Flutter valve. Doxycycline -Chronic hypoxic respiratory failure secondary to underlying COPD 2 L of oxygen at home -Hyperlipidemia Lipitor 10 mg nightly -GERD Omeprazole -Hyperlipidemia Lipitor 10 mg with supper -Breast cancer-, triple negative. Received chemotherapy being followed by Dr. Garber from oncology. -Full code Followed by pulmonary. Discussed Past Medical History Past Medical History: COPD, Eye Disorder, Hyperlipidemia Additional Past Medical History / Comment(s): Bronchitis, bilateral eyes with increased intraocular pressure-not glaucoma yet, neuralgia R side forhead in past,daily steroid, FOOD GETS STUCK IN THROAT, BLOATING, wears oxygen 2lnc as needed History of Any Multi-Drug Resistant Organisms: None Reported Past Surgical History: Breast Surgery, Hernia Repair, Orthopedic Surgery Additional Past Surgical History / Comment(s): Bilateral carpal tunnel; bilateral cataract removal with lens, bronchoscopy, R inguinal hernia repair, colonoscopy RT BREAST BIOSPY, and the node had chemo and radiation july 2023, colonoscopy Past Anesthesia/Blood Transfusion Reactions: No Reported Reaction Additional Past Anesthesia/Blood Transfusion Reaction / Comment(s): no blood transfusion Past Psychological History: No Psychological Hx Reported Smoking Status: Former smoker Past Alcohol Use History: None Reported Past Drug Use History: None Reported
[2024-01-28] MEDS: FORMOTEROL FUMARATE 20 MCG/2 ML NEBU INHALATION SCH (20:03)
--- NOTE | 2024-01-29 11:15 | P.PN ---
Subjective Progress Note Date: 01/29/24 This is a very pleasant 73-year-old female patient with a known history of oxygen dependent COPD her FEV1 value was 30% of predicted, breast cancer completed chemotherapy in July 2023, hyperlipidemia, gastroesophageal reflux disease, former smoker. She presented here to the emergency room yesterday with complaints of increasing shortness of breath, cough and congestion. Chest x-ray reveals no acute pulmonary process. Evidence of COPD changes. Count 7.9. Hemoglobin 12.5. Platelets 244. Sodium 136. Potassium 4.5. Bicarb 26. BUN 10. Creatinine 0.7. Glucose 141. Troponin negative x 1. proBNP 401. She is seen today in consultation in the emergency department. She is sitting up in a chair. Awake and alert in no acute distress. She does have bilateral end expiratory wheeze, loose nonproductive cough. Denies any fever or chills. No hemoptysis. Has been initiated on DuoNeb inhalations, Pulmicort and performing scintillations, Solu-Medrol. On empiric antibiotics in the form of doxycycline. Procalcitonin pending. The patient is seen today January 29, 2024 in follow-up on the regular medical floor. She is currently up ambulating in her room. Awake and alert in no acute distress. Maintaining O2 saturations in the 90s on 2 L/min per nasal cannula. No IV fluids. She is continued on DuoNeb inhalations, Pulmicort and performing scintillations, Solu-Medrol. Empiric antibiotics in the form of doxycycline. Procalcitonin is still pending. Objective - Vital Signs Vital signs: Vital Signs Temp 97.9 F 01/29/24 07:26 Pulse 100 01/29/24 09:55 Resp 16 01/29/24 07:26 BP 142/83 01/29/24 07:26 Pulse Ox 94 L 01/29/24 07:26 FiO2 Intake & Output 01/28/24 01/29/24 01/29/24 18:59 06:59 18:59 Intake Total 120 Balance 120 Weight 61.235 kg Intake: Oral 120 Other: Voiding Method Toilet # Voids 0 - Exam GENERAL EXAM: Alert, active, 73-year-old female, on 2 L nasal cannula, comfortable in no apparent distress. HEAD: Normocephalic. EYES: Normal reaction of pupils, equal size. NOSE: Clear with pink turbinates. THROAT: No erythema or exudates. NECK: No masses, no JVD. CHEST: No chest wall deformity. LUNGS: Equal air entry with bilateral end expiratory wheeze, diminished. CVS: S1 and S2 normal with no audible murmur, regular rhythm. ABDOMEN: No hepatosplenomegaly, normal bowel sounds, no guarding or rigidity. SPINE: No scoliosis or deformity SKIN: No rashes CENTRAL NERVOUS SYSTEM: No focal deficits, tone is normal in all 4 extremities. EXTREMITIES: There is no peripheral edema. No clubbing, no cyanosis. Peripheral pulses are intact. - Labs CBC & Chem 7: 01/28/24 06:10 01/28/24 06:10 Assessment and Plan Assessment: Acute exacerbation of chronic obstructive pulmonary disease Acute hypoxemic respiratory failure secondary to above Severe Gold stage IV chronic obstructive pulmonary disease with an FEV1 value 30% of predicted Former smoker Breast cancer, status post chemotherapy completed in July 2023 Hyperlipidemia Gastroesophageal reflux disease Plan: The patient was seen and evaluated Medications reviewed Continue bronchodilators and steroid Procalcitonin pending Continue doxycycline for now We will continue to follow I have personally seen and examined the patient, performed the documentation and the assessment and plan as written. Number of minutes spent on the visit: 10.
--- NOTE | 2024-01-29 14:59 | P.PN ---
Progress Note - Text Progress Note Date: 01/29/24 Chief Complaint: Short of breath Very pleasant 73-year-old patient, follows with Dr. Mohan. Lawn Mower Operator Dr. Parker. Oncologist Dr. Garber. diagnosed with breast cancer. Stage I. Triple negative. Posterior lymph nodes. Received chemotherapy. Patient sent in from the office of her pipe chipper Dr. Parker. Patient been short of breath all summer. Congested cough. Not able to expectorate. It is all stuck in the chest. On home oxygen 2 L. No fever no chills. Eating fair. Able to get around the house. Family at the bedside. January 27: Patient overflowing the ER. Up in a chair. Congested cough. No expectoration. I-S and flutter valve ordered. Told patient to use every 1015 minutes. No lavage per pulmonary. Patient IV Solu-Medrol. Mucinex. DuoNeb. Eating well January 28: Up in a chair. Congested cough. Unable to expectorate. Ordered to humidify oxygen. Remains on IV Solu-Medrol. 60 mg every 6. Active Medications Acetaminophen (Acetaminophen Tab 325 Mg Tab) 650 mg PO Q6HR PRN PRN Reason: Mild Pain or Fever > 100.5 Last Admin: 01/27/24 22:35 Dose: 650 mg Albuterol/Ipratropium (Ipratropium-Albuterol 3 Ml Neb) 3 ml INHALATION RT-QID [facility] Last Admin: 01/29/24 12:56 Dose: 3 ml Albuterol/Ipratropium (Ipratropium-Albuterol 3 Ml Neb) 3 ml INHALATION RT-Q2H PRN PRN Reason: Shortness Of Breath Or Wheezing Atorvastatin Calcium (Atorvastatin 10 Mg Tab) 10 mg PO W/SUPPER [facility] Last Admin: 01/28/24 17:54 Dose: 10 mg Budesonide (Budesonide 1 Mg/2 Ml Nebu) 1 mg INHALATION RT-BID [facility] Last Admin: 01/29/24 09:34 Dose: 1 mg Calcium Carbonate (Calcium Carb-Vit D 500 Mg-5 Mcg Tab) 1 each PO W/SUPPER [facility] Last Admin: 01/28/24 17:54 Dose: 1 each Carbamazepine (Carbamazepine Chew 100 Mg Chew) 100 mg PO DAILY PRN PRN Reason: nerve pain Diltiazem HCl (Diltiazem Oral 30 Mg Tab) 30 mg PO TID [facility] Last Admin: 01/29/24 08:12 Dose: 30 mg Doxycycline Monohydrate (Doxycycline 100 Mg Cap) 100 mg PO BID [facility]; Protocol Last Admin: 01/29/24 08:13 Dose: 100 mg Formoterol Fumarate (Formoterol Fumarate 20 Mcg/2 Ml Nebu) 20 mcg INHALATION RT-BID [facility] Last Admin: 01/29/24 09:34 Dose: 20 mcg Guaifenesin (Guaifenesin 600 Mg Tablet.Er) 600 mg PO QID [facility] Last Admin: 01/29/24 12:28 Dose: 600 mg Latanoprost (Latanoprost 0.005% Ophth Drops 2.5 Ml Btl) 1 drops BOTH EYES HS [facility] Last Admin: 01/28/24 22:03 Dose: 1 drops Methylprednisolone Sodium Succinate (Methylprednisolone Sod Succi 125 Mg/2 Ml Vial) 60 mg IV Q6HR [facility] Last Admin: 01/29/24 12:27 Dose: 60 mg Naloxone HCl (Naloxone 0.4 Mg/Ml 1 Ml Vial) 0.2 mg IV Q2M PRN PRN Reason: Opioid Reversal Pantoprazole Sodium (Pantoprazole 40 Mg Tablet) 40 mg PO DAILY [facility] Last Admin: 01/29/24 08:20 Dose: 40 mg Past medical history to include: COPD, hyperlipidemia, breast cancer triple negative, home oxygen 2 L Social history: Lives alone. . Smoked for about 31 years, stopped around 1999. No alcohol Physical examination: VITAL SIGNS: 98.3, 108, 20, 116 x 71, 99% 2 L GENERAL: Up in chair, congested cough EYES: Pupils equal. Conjunctiva normal. HEENT: External appearance of nose and ears normal, oral cavity white spots in the r pharynx. NECK: JVD not raised; masses not palpable. HEART: First and second heart sounds are normal; no edema. LUNGS:[ Respiratory rate increased l, diminished breath sounds , expiratory crackles-upper anterior chest ABDOMEN: Soft, nontender, liver spleen not palpable, no masses palpable. PSYCH: [Alert and oriented x3; mood and affect anxious MUSCULOSKELETAL:No Clubbing/cyanosis;muscles-grossly intact. Evidence of OA INVESTIGATIONS, reviewed in the clinical context: January 27: White count 7.9 hemoglobin 12.5 platelets 244 sodium 136 potassium 4.5 creatinine 0.7 January 27, 2024: White count 5.4 hemoglobin 12.8 platelets 245 sodium 133 potassium 4.4 creatinine 0.67 Troponin I less than 0.012 proBNP 401 EKG tracing personally reviewed by me-sinus tachycardia. P pulmonale. Chest x-ray film personally reviewed by me-hyperinflated. Interstitial changes Assessment and plan: -Acute COPD exacerbation in a prior smoker, steroid-dependent: Slow to respond DuoNeb. IV Solu-Medrol 60 mg every 6. Nebulized Pulmicort -Acute severe tracheobronchitis. Patient said previous bronchial lavage Mucinex. humidified oxygen. Flutter valve. Doxycycline -Chronic hypoxic respiratory failure secondary to underlying COPD 2 L of oxygen at home -Hyperlipidemia Lipitor 10 mg nightly -GERD Omeprazole -Hyperlipidemia Lipitor 10 mg with supper -Breast cancer-, triple negative. Received chemotherapy being followed by Dr. Garber from oncology. -Full code Discussed with patient. Follow-up with pulmonary. Past Medical History Past Medical History: COPD, Eye Disorder, Hyperlipidemia Additional Past Medical History / Comment(s): Bronchitis, bilateral eyes with increased intraocular pressure-not glaucoma yet, neuralgia R side forhead in past,daily steroid, FOOD GETS STUCK IN THROAT, BLOATING, wears oxygen 2lnc as needed History of Any Multi-Drug Resistant Organisms: None Reported Past Surgical History: Breast Surgery, Hernia Repair, Orthopedic Surgery Additional Past Surgical History / Comment(s): Bilateral carpal tunnel; bilateral cataract removal with lens, bronchoscopy, R inguinal hernia repair, colonoscopy RT BREAST BIOSPY, and the node had chemo and radiation july 2023, colonoscopy Past Anesthesia/Blood Transfusion Reactions: No Reported Reaction Additional Past Anesthesia/Blood Transfusion Reaction / Comment(s): no blood transfusion Past Psychological History: No Psychological Hx Reported Smoking Status: Former smoker Past Alcohol Use History: None Reported Past Drug Use History: None Reported
--- NOTE | 2024-01-30 09:56 | P.PN ---
Subjective Progress Note Date: 01/30/24 This is a very pleasant 73-year-old female patient with a known history of oxygen dependent COPD her FEV1 value was 30% of predicted, breast cancer completed chemotherapy in July 2023, hyperlipidemia, gastroesophageal reflux disease, former smoker. She presented here to the emergency room yesterday with complaints of increasing shortness of breath, cough and congestion. Chest x-ray reveals no acute pulmonary process. Evidence of COPD changes. Count 7.9. Hemoglobin 12.5. Platelets 244. Sodium 136. Potassium 4.5. Bicarb 26. BUN 10. Creatinine 0.7. Glucose 141. Troponin negative x 1. proBNP 401. She is seen today in consultation in the emergency department. She is sitting up in a chair. Awake and alert in no acute distress. She does have bilateral end expiratory wheeze, loose nonproductive cough. Denies any fever or chills. No hemoptysis. Has been initiated on DuoNeb inhalations, Pulmicort and performing scintillations, Solu-Medrol. On empiric antibiotics in the form of doxycycline. Procalcitonin pending. The patient is seen today January 29, 2024 in follow-up on the regular medical floor. She is currently up ambulating in her room. Awake and alert in no acute distress. Maintaining O2 saturations in the 90s on 2 L/min per nasal cannula. No IV fluids. She is continued on DuoNeb inhalations, Pulmicort and performing scintillations, Solu-Medrol. Empiric antibiotics in the form of doxycycline. Procalcitonin is still pending. The patient is seen today January 30, 2024 in follow-up on the regular medical floor. She is currently sitting up in a chair having breakfast. Awake and alert in no acute distress. Improving today compared to yesterday. Still not quite back to her baseline. Still with some end expiratory wheezing. She is maintaining O2 saturations in the mid 90s on 2-1/2 L/min per nasal cannula. No new labs today. She is continued on DuoNeb inhalations, Pulmicort and Perforomist inhalations, Solu-Medrol. Empiric antibiotics in the form of doxycycline. Procalcitonin is still pending. Objective - Vital Signs Vital signs: Vital Signs Temp 97.7 F 01/30/24 00:25 Pulse 96 01/30/24 08:54 Resp 18 01/30/24 00:25 BP 149/82 01/30/24 00:25 Pulse Ox 98 01/30/24 00:25 FiO2 Intake & Output 01/29/24 01/30/24 01/30/24 18:59 06:59 18:59 Other: Voiding Method Toilet # Voids 3 1 - Exam GENERAL EXAM: Alert, pleasant 73-year-old female, on 2.5 L nasal cannula, sitting up in a chair, in no apparent distress. HEAD: Normocephalic. EYES: Normal reaction of pupils, equal size. NOSE: Clear with pink turbinates. THROAT: No erythema or exudates. NECK: No masses, no JVD. CHEST: No chest wall deformity. LUNGS: Equal air entry with bilateral end expiratory wheeze, diminished. CVS: S1 and S2 normal with no audible murmur, regular rhythm. ABDOMEN: No hepatosplenomegaly, normal bowel sounds, no guarding or rigidity. SPINE: No scoliosis or deformity SKIN: No rashes CENTRAL NERVOUS SYSTEM: No focal deficits, tone is normal in all 4 extremities. EXTREMITIES: There is no peripheral edema. No clubbing, no cyanosis. Peripheral pulses are intact. - Labs CBC & Chem 7: 01/28/24 06:10 01/28/24 06:10 Assessment and Plan Assessment: Acute exacerbation of chronic obstructive pulmonary disease Acute hypoxemic respiratory failure secondary to above Severe Gold stage IV chronic obstructive pulmonary disease with an FEV1 value 30% of predicted Former smoker Breast cancer, status post chemotherapy completed in July 2023 Hyperlipidemia Gastroesophageal reflux disease Plan: The patient was seen and evaluated Medications reviewed Continue bronchodilators and steroids Procalcitonin pending Continue doxycycline for now She has been slow to progress May require bronchoscopy with BAL if no improvement This patient was seen independently by the pulmonary nurse practitioner addressing pulmonary issues I have personally seen and examined the patient, performed the documentation and the assessment and plan as written. Number of minutes spent on the visit: 24.
--- NOTE | 2024-01-30 15:48 | P.PN ---
Progress Note - Text Progress Note Date: 01/30/24 Chief Complaint: Short of breath Very pleasant 73-year-old patient, follows with Dr. Mohan. 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 Parker. Oncologist Dr. Garber. diagnosed with breast cancer. Stage I. Triple negative. Posterior lymph nodes. Received chemotherapy. Patient sent in from the office of her healthcare financial analyst Dr. Parker. Patient been short of breath all summer. Congested cough. Not able to expectorate. It is all stuck in the chest. On home oxygen 2 L. No fever no chills. Eating fair. Able to get around the house. Family at the bedside. January 27: Patient overflowing the ER. Up in a chair. Congested cough. No expectoration. I-S and flutter valve ordered. Told patient to use every 1015 minutes. No lavage per pulmonary. Patient IV Solu-Medrol. Mucinex. DuoNeb. Eating well January 28: Up in a chair. Congested cough. Unable to expectorate. Ordered to humidify oxygen. Remains on IV Solu-Medrol. 60 mg every 6. January 29: Continues with a wet cough. Very little expectoration. Dr. Strange is planning a lavage early next week. Remains on IV Solu-Medrol. Using incentive spirometry and flutter valve. Humidified oxygen. Active Medications Acetaminophen (Acetaminophen Tab 325 Mg Tab) 650 mg PO Q6HR PRN PRN Reason: Mild Pain or Fever > 100.5 Last Admin: 01/27/24 22:35 Dose: 650 mg Albuterol/Ipratropium (Ipratropium-Albuterol 3 Ml Neb) 3 ml INHALATION RT-QID [facility] Last Admin: 01/30/24 15:38 Dose: 3 ml Albuterol/Ipratropium (Ipratropium-Albuterol 3 Ml Neb) 3 ml INHALATION RT-Q2H PRN PRN Reason: Shortness Of Breath Or Wheezing Atorvastatin Calcium (Atorvastatin 10 Mg Tab) 10 mg PO W/SUPPER [facility] Last Admin: 01/29/24 17:35 Dose: 10 mg Budesonide (Budesonide 1 Mg/2 Ml Nebu) 1 mg INHALATION RT-BID [facility] Last Admin: 01/30/24 08:33 Dose: 1 mg Calcium Carbonate (Calcium Carb-Vit D 500 Mg-5 Mcg Tab) 1 each PO W/SUPPER [facility] Last Admin: 01/29/24 17:35 Dose: 1 each Carbamazepine (Carbamazepine Chew 100 Mg Chew) 100 mg PO DAILY PRN PRN Reason: nerve pain Diltiazem HCl (Diltiazem Oral 30 Mg Tab) 30 mg PO TID [facility] Last Admin: 01/30/24 09:35 Dose: 30 mg Doxycycline Monohydrate (Doxycycline 100 Mg Cap) 100 mg PO BID [facility]; Protocol Last Admin: 01/30/24 09:34 Dose: 100 mg Formoterol Fumarate (Formoterol Fumarate 20 Mcg/2 Ml Nebu) 20 mcg INHALATION RT-BID [facility] Last Admin: 01/30/24 08:32 Dose: 20 mcg Guaifenesin (Guaifenesin 600 Mg Tablet.Er) 600 mg PO QID [facility] Last Admin: 01/30/24 12:15 Dose: 600 mg Latanoprost (Latanoprost 0.005% Ophth Drops 2.5 Ml Btl) 1 drops BOTH EYES HS [facility] Last Admin: 01/29/24 20:42 Dose: 1 drops Methylprednisolone Sodium Succinate (Methylprednisolone Sod Succi 125 Mg/2 Ml Vial) 60 mg IV Q6HR [facility] Last Admin: 01/30/24 12:15 Dose: 60 mg Naloxone HCl (Naloxone 0.4 Mg/Ml 1 Ml Vial) 0.2 mg IV Q2M PRN PRN Reason: Opioid Reversal Pantoprazole Sodium (Pantoprazole 40 Mg Tablet) 40 mg PO DAILY [facility] Last Admin: 01/30/24 09:38 Dose: 40 mg Past medical history to include: COPD, hyperlipidemia, breast cancer triple negative, home oxygen 2 L Social history: Lives alone. . Smoked for about 31 years, stopped around 1999. No alcohol Physical examination: VITAL SIGNS: 97.6, 107, 19, 129 x 69, 99% on 2 L GENERAL: Up in chair, wet sounding cough EYES: Pupils equal. Conjunctiva normal. HEENT: External appearance of nose and ears normal, oral cavity white spots in the r pharynx. NECK: JVD not raised; masses not palpable. HEART: First and second heart sounds are normal; no edema. LUNGS:[ Respiratory rate increased l, diminished breath sounds , expiratory crackles-upper anterior chest ABDOMEN: Soft, nontender, liver spleen not palpable, no masses palpable. PSYCH: [Alert and oriented x3; mood and affect anxious MUSCULOSKELETAL:No Clubbing/cyanosis;muscles-grossly intact. Evidence of OA INVESTIGATIONS, reviewed in the clinical context: January 27: White count 7.9 hemoglobin 12.5 platelets 244 sodium 136 potassium 4.5 creatinine 0.7 January 27, 2024: White count 5.4 hemoglobin 12.8 platelets 245 sodium 133 potassium 4.4 creatinine 0.67 Troponin I less than 0.012 proBNP 401 EKG tracing personally reviewed by me-sinus tachycardia. P pulmonale. Chest x-ray film personally reviewed by me-hyperinflated. Interstitial changes Assessment and plan: -Acute COPD exacerbation in a prior smoker, steroid-dependent: Slow to respond DuoNeb. IV Solu-Medrol 60 mg every 6. Nebulized Pulmicort -Acute severe tracheobronchitis. Patient said previous bronchial lavage Mucinex. humidified oxygen. Flutter valve. Doxycycline Dr. Patel from pulmonary is planning a [place] -Chronic hypoxic respiratory failure secondary to underlying COPD 2 L of oxygen at home -Hyperlipidemia Lipitor 10 mg nightly -GERD Omeprazole -Hyperlipidemia Lipitor 10 mg with supper -Breast cancer-, triple negative. Received chemotherapy being followed by Dr. Garber from oncology. -Full code Discussed. Continue current medications Past Medical History Past Medical History: COPD, Eye Disorder, Hyperlipidemia Additional Past Medical History / Comment(s): Bronchitis, bilateral eyes with increased intraocular pressure-not glaucoma yet, neuralgia R side forhead in past,daily steroid, FOOD GETS STUCK IN THROAT, BLOATING, wears oxygen 2lnc as needed History of Any Multi-Drug Resistant Organisms: None Reported Past Surgical History: Breast Surgery, Hernia Repair, Orthopedic Surgery Additional Past Surgical History / Comment(s): Bilateral carpal tunnel; bilateral cataract removal with lens, bronchoscopy, R inguinal hernia repair, colonoscopy RT BREAST BIOSPY, and the node had chemo and radiation july 2023, colonoscopy Past Anesthesia/Blood Transfusion Reactions: No Reported Reaction Additional Past Anesthesia/Blood Transfusion Reaction / Comment(s): no blood transfusion Past Psychological History: No Psychological Hx Reported Smoking Status: Former smoker Past Alcohol Use History: None Reported Past Drug Use History: None Reported
--- NOTE | 2024-01-31 10:12 | P.PN ---
Subjective Progress Note Date: 01/31/24 This is a very pleasant 73-year-old female patient with a known history of oxygen dependent COPD her FEV1 value was 30% of predicted, breast cancer completed chemotherapy in July 2023, hyperlipidemia, gastroesophageal reflux disease, former smoker. She presented here to the emergency room yesterday with complaints of increasing shortness of breath, cough and congestion. Chest x-ray reveals no acute pulmonary process. Evidence of COPD changes. Count 7.9. Hemoglobin 12.5. Platelets 244. Sodium 136. Potassium 4.5. Bicarb 26. BUN 10. Creatinine 0.7. Glucose 141. Troponin negative x 1. proBNP 401. She is seen today in consultation in the emergency department. She is sitting up in a chair. Awake and alert in no acute distress. She does have bilateral end expiratory wheeze, loose nonproductive cough. Denies any fever or chills. No hemoptysis. Has been initiated on DuoNeb inhalations, Pulmicort and performing scintillations, Solu-Medrol. On empiric antibiotics in the form of doxycycline. Procalcitonin pending. The patient is seen today January 29, 2024 in follow-up on the regular medical floor. She is currently up ambulating in her room. Awake and alert in no acute distress. Maintaining O2 saturations in the 90s on 2 L/min per nasal cannula. No IV fluids. She is continued on DuoNeb inhalations, Pulmicort and performing scintillations, Solu-Medrol. Empiric antibiotics in the form of doxycycline. Procalcitonin is still pending. The patient is seen today January 30, 2024 in follow-up on the regular medical floor. She is currently sitting up in a chair having breakfast. Awake and alert in no acute distress. Improving today compared to yesterday. Still not quite back to her baseline. Still with some end expiratory wheezing. She is maintaining O2 saturations in the mid 90s on 2-1/2 L/min per nasal cannula. No new labs today. She is continued on DuoNeb inhalations, Pulmicort and Perforomist inhalations, Solu-Medrol. Empiric antibiotics in the form of doxycycline. Procalcitonin is still pending. The patient is seen today January 31, 2024 in follow-up on the regular medical floor. He is awake and alert in no acute distress. Sitting up in a chair. Denies any worsening shortness of breath, cough or congestion. Still not quite back to her baseline. Continues with a loose cough. She is maintaining O2 saturations in the upper 90s on 3 L/min per nasal cannula. No new labs today. She remains on DuoNeb and elations, Pulmicort and Perforomist inhalations, Solu- Medrol. Remains on doxycycline. Procalcitonin still pending. Mucinex for her congestion. Objective - Vital Signs Vital signs: Vital Signs Temp 97.8 F 01/31/24 07:20 Pulse 103 H 01/31/24 09:55 Resp 17 01/31/24 07:20 BP 115/86 01/31/24 07:20 Pulse Ox 97 01/31/24 09:35 FiO2 Intake & Output 01/30/24 01/31/24 01/31/24 18:59 06:59 18:59 Intake Total 400 Balance 400 Intake: Oral 400 Other: # Voids 6 2 # Bowel Movements 0 - Exam GENERAL EXAM: Alert, 73-year-old female, on 3 L nasal cannula, up in a chair, in no apparent distress. HEAD: Normocephalic. EYES: Normal reaction of pupils, equal size. NOSE: Clear with pink turbinates. THROAT: No erythema or exudates. NECK: No masses, no JVD. CHEST: No chest wall deformity. LUNGS: Equal air entry with bilateral end expiratory wheeze, diminished. CVS: S1 and S2 normal with no audible murmur, regular rhythm. ABDOMEN: No hepatosplenomegaly, normal bowel sounds, no guarding or rigidity. SPINE: No scoliosis or deformity SKIN: No rashes CENTRAL NERVOUS SYSTEM: No focal deficits, tone is normal in all 4 extremities. EXTREMITIES: There is no peripheral edema. No clubbing, no cyanosis. Peripheral pulses are intact. - Labs CBC & Chem 7: 01/28/24 06:10 01/28/24 06:10 Assessment and Plan Assessment: Acute exacerbation of chronic obstructive pulmonary disease Acute hypoxemic respiratory failure secondary to above Severe Gold stage IV chronic obstructive pulmonary disease with an FEV1 value 30% of predicted Former smoker Breast cancer, status post chemotherapy completed in July 2023 Hyperlipidemia Gastroesophageal reflux disease Plan: The patient was seen and evaluated Medications reviewed Continue the current treatment plan She has been slow to progress May require bronchoscopy with BAL if no improvement This patient was seen independently by the pulmonary nurse practitioner addressing pulmonary issues I have personally seen and examined the patient, performed the documentation and the assessment and plan as written. Number of minutes spent on the visit: 23.
--- NOTE | 2024-01-31 14:14 | P.PN ---
Progress Note - Text Progress Note Date: 01/31/24 Chief Complaint: Short of breath Very pleasant 73-year-old patient, follows with Dr. Mohan. Mill Manager Dr. Parker. Oncologist Dr. Garber. diagnosed with breast cancer. Stage I. Triple negative. Posterior lymph nodes. Received chemotherapy. Patient sent in from the office of her 1st press[address]. Parker. Patient been short of breath all summer. Congested cough. Not able to expectorate. It is all stuck in the chest. On home oxygen 2 L. No fever no chills. Eating fair. Able to get around the house. Family at the bedside. January 27: Patient overflowing the ER. Up in a chair. Congested cough. No expectoration. I-S and flutter valve ordered. Told patient to use every 1015 minutes. No lavage per pulmonary. Patient IV Solu-Medrol. Mucinex. DuoNeb. Eating well January 28: Up in a chair. Congested cough. Unable to expectorate. Ordered to humidify oxygen. Remains on IV Solu-Medrol. 60 mg every 6. January 29: Continues with a wet cough. Very little expectoration. Dr. Strange is planning a lavage early next week. Remains on IV Solu-Medrol. Using incentive spirometry and flutter valve. Humidified oxygen. January 30: Expectoration. Per Dr. Patel continue with steroids. 97% room air. Eating fair Active Medications Acetaminophen (Acetaminophen Tab 325 Mg Tab) 650 mg PO Q6HR PRN PRN Reason: Mild Pain or Fever > 100.5 Last Admin: 01/27/24 22:35 Dose: 650 mg Albuterol/Ipratropium (Ipratropium-Albuterol 3 Ml Neb) 3 ml INHALATION RT-QID [facility] Last Admin: 01/31/24 13:01 Dose: 3 ml Albuterol/Ipratropium (Ipratropium-Albuterol 3 Ml Neb) 3 ml INHALATION RT-Q2H PRN PRN Reason: Shortness Of Breath Or Wheezing Atorvastatin Calcium (Atorvastatin 10 Mg Tab) 10 mg PO W/SUPPER [facility] Last Admin: 01/30/24 17:02 Dose: 10 mg Budesonide (Budesonide 1 Mg/2 Ml Nebu) 1 mg INHALATION RT-BID [facility] Last Admin: 01/31/24 09:32 Dose: 1 mg Calcium Carbonate (Calcium Carb-Vit D 500 Mg-5 Mcg Tab) 1 each PO W/SUPPER [facility] Last Admin: 01/30/24 17:02 Dose: 1 each Carbamazepine (Carbamazepine Chew 100 Mg Chew) 100 mg PO DAILY PRN PRN Reason: nerve pain Diltiazem HCl (Diltiazem Oral 30 Mg Tab) 30 mg PO TID [facility] Last Admin: 01/31/24 09:15 Dose: 30 mg Doxycycline Monohydrate (Doxycycline 100 Mg Cap) 100 mg PO BID [facility]; Protocol Last Admin: 01/31/24 09:15 Dose: 100 mg Formoterol Fumarate (Formoterol Fumarate 20 Mcg/2 Ml Nebu) 20 mcg INHALATION RT-BID [facility] Last Admin: 01/31/24 09:32 Dose: 20 mcg Guaifenesin (Guaifenesin 600 Mg Tablet.Er) 600 mg PO QID [facility] Last Admin: 01/31/24 11:42 Dose: 600 mg Latanoprost (Latanoprost 0.005% Ophth Drops 2.5 Ml Btl) 1 drops BOTH EYES HS [facility] Last Admin: 01/30/24 20:53 Dose: 1 drops Methylprednisolone Sodium Succinate (Methylprednisolone Sod Succi 125 Mg/2 Ml Vial) 60 mg IV Q6HR [facility] Last Admin: 01/31/24 11:42 Dose: 60 mg Naloxone HCl (Naloxone 0.4 Mg/Ml 1 Ml Vial) 0.2 mg IV Q2M PRN PRN Reason: Opioid Reversal Pantoprazole Sodium (Pantoprazole 40 Mg Tablet) 40 mg PO DAILY [facility] Last Admin: 01/31/24 09:15 Dose: 40 mg Past medical history to include: COPD, hyperlipidemia, breast cancer triple negative, home oxygen 2 L Social history: Lives alone. . Smoked for about 31 years, stopped around 1999. No alcohol Physical examination: VITAL SIGNS: 97.6, 104, 18, 115 x 76, 97% room air GENERAL: Up in chair, shortness of breath EYES: Pupils equal. Conjunctiva normal. HEENT: External appearance of nose and ears normal, oral cavity white spots in the r pharynx. NECK: JVD not raised; masses not palpable. HEART: First and second heart sounds are normal; no edema. LUNGS:[ Respiratory rate increased l, diminished breath sounds , expiratory crackles-upper anterior chest ABDOMEN: Soft, nontender, liver spleen not palpable, no masses palpable. PSYCH: [Alert and oriented x3; mood and affect anxious MUSCULOSKELETAL:No Clubbing/cyanosis;muscles-grossly intact. Evidence of OA INVESTIGATIONS, reviewed in the clinical context: January 27: White count 7.9 hemoglobin 12.5 platelets 244 sodium 136 potassium 4.5 creatinine 0.7 January 27, 2024: White count 5.4 hemoglobin 12.8 platelets 245 sodium 133 potassium 4.4 creatinine 0.67 Troponin I less than 0.012 proBNP 401 EKG tracing personally reviewed by me-sinus tachycardia. P pulmonale. Chest x-ray film personally reviewed by me-hyperinflated. Interstitial changes Assessment and plan: -Acute COPD exacerbation in a prior smoker, steroid-dependent: DuoNeb. IV Solu-Medrol 60 mg every 6. Nebulized Pulmicort -Acute severe tracheobronchitis. Patient said previous bronchial lavage Mucinex. humidified oxygen. Flutter valve. Doxycycline Dr. Patel from pulmonary following -Chronic hypoxic respiratory failure secondary to underlying COPD 2 L of oxygen at home -Hyperlipidemia Lipitor 10 mg nightly -GERD Omeprazole -Hyperlipidemia Lipitor 10 mg with supper -Breast cancer-, triple negative. Received chemotherapy being followed by Dr. Garber from oncology. -Full code Current medications. Follow-up with pulmonary. Past Medical History Past Medical History: COPD, Eye Disorder, Hyperlipidemia Additional Past Medical History / Comment(s): Bronchitis, bilateral eyes with increased intraocular pressure-not glaucoma yet, neuralgia R side forhead in past,daily steroid, FOOD GETS STUCK IN THROAT, BLOATING, wears oxygen 2lnc as needed History of Any Multi-Drug Resistant Organisms: None Reported Past Surgical History: Breast Surgery, Hernia Repair, Orthopedic Surgery Additional Past Surgical History / Comment(s): Bilateral carpal tunnel; bilateral cataract removal with lens, bronchoscopy, R inguinal hernia repair, colonoscopy RT BREAST BIOSPY, and the node had chemo and radiation july 2023, colonoscopy Past Anesthesia/Blood Transfusion Reactions: No Reported Reaction Additional Past Anesthesia/Blood Transfusion Reaction / Comment(s): no blood transfusion Past Psychological History: No Psychological Hx Reported Smoking Status: Former smoker Past Alcohol Use History: None Reported Past Drug Use History: None Reported
[2024-02-01] MEDS: PSYLLIUM HUSK 100% 6 GM PACKET PO SCH (12:31)
[2024-02-01] MEDS: FLUCONAZOLE 100 MG TAB PO ONE (12:31)
[2024-02-01] MEDS: LACTULOSE 20 GM/30 ML CUP PO ONE (12:31)
--- NOTE | 2024-02-01 14:58 | P.PN ---
Subjective Progress Note Date: 02/01/24 This is a very pleasant 73-year-old female patient with a known history of oxygen dependent COPD her FEV1 value was 30% of predicted, breast cancer completed chemotherapy in July 2023, hyperlipidemia, gastroesophageal reflux disease, former smoker. She presented here to the emergency room yesterday with complaints of increasing shortness of breath, cough and congestion. Chest x-ray reveals no acute pulmonary process. Evidence of COPD changes. Count 7.9. Hemoglobin 12.5. Platelets 244. Sodium 136. Potassium 4.5. Bicarb 26. BUN 10. Creatinine 0.7. Glucose 141. Troponin negative x 1. proBNP 401. She is seen today in consultation in the emergency department. She is sitting up in a chair. Awake and alert in no acute distress. She does have bilateral end expiratory wheeze, loose nonproductive cough. Denies any fever or chills. No hemoptysis. Has been initiated on DuoNeb inhalations, Pulmicort and performing scintillations, Solu-Medrol. On empiric antibiotics in the form of doxycycline. Procalcitonin pending. The patient is seen today January 29, 2024 in follow-up on the regular medical floor. She is currently up ambulating in her room. Awake and alert in no acute distress. Maintaining O2 saturations in the 90s on 2 L/min per nasal cannula. No IV fluids. She is continued on DuoNeb inhalations, Pulmicort and performing scintillations, Solu-Medrol. Empiric antibiotics in the form of doxycycline. Procalcitonin is still pending. The patient is seen today January 30, 2024 in follow-up on the regular medical floor. She is currently sitting up in a chair having breakfast. Awake and alert in no acute distress. Improving today compared to yesterday. Still not quite back to her baseline. Still with some end expiratory wheezing. She is maintaining O2 saturations in the mid 90s on 2-1/2 L/min per nasal cannula. No new labs today. She is continued on DuoNeb inhalations, Pulmicort and Perforomist inhalations, Solu-Medrol. Empiric antibiotics in the form of doxycycline. Procalcitonin is still pending. The patient is seen today January 31, 2024 in follow-up on the regular medical floor. He is awake and alert in no acute distress. Sitting up in a chair. Denies any worsening shortness of breath, cough or congestion. Still not quite back to her baseline. Continues with a loose cough. She is maintaining O2 saturations in the upper 90s on 3 L/min per nasal cannula. No new labs today. She remains on DuoNeb and elations, Pulmicort and Perforomist inhalations, Solu- Medrol. Remains on doxycycline. Procalcitonin still pending. Mucinex for her congestion. On today's evaluation of [id number], patient is being seen for a follow-up. The holly perkins is being treated for an acute exacerbation. The patient is known to the past COPD with an FEV1 of 30% of predicted. The patient continues to have cough and congestion unable to bring up much sputum and her progress has been/limited over the past 5 days. As such, bronchoscopy and therapeutic airway suctioning endobronchial lavage was recommended. She is currently on oxygen at 3 L. On examination, she remains bronchospastic and wheezy. No new labs are available from today. On her medications, she is on DuoNeb nebulized treatment [id number], performance of Pulmicort nebulized treatments, doxycycline, and IV Solu-Medrol. Diflucan was also added as the patient was noted to have oropharyngeal candidiasis. Objective - Vital Signs Vital signs: Vital Signs Temp 97.9 F 02/01/24 07:23 Pulse 104 H 02/01/24 09:55 Resp 18 02/01/24 07:23 BP 128/77 02/01/24 07:23 Pulse Ox 97 02/01/24 07:23 FiO2 Intake & Output 01/31/24 02/01/24 02/01/24 18:59 06:59 18:59 Other: Voiding Method Toilet Toilet # Voids 3 - Exam GENERAL EXAM: Alert, 73-year-old female, on 3 L nasal cannula, up in a chair, in no apparent distress. HEAD: Normocephalic. EYES: Normal reaction of pupils, equal size. NOSE: Clear with pink turbinates. THROAT: No erythema or exudates. The patient has thrush NECK: No masses, no JVD. CHEST: No chest wall deformity. LUNGS: Equal air entry with bilateral end expiratory wheeze, diminished. CVS: S1 and S2 normal with no audible murmur, regular rhythm. ABDOMEN: No hepatosplenomegaly, normal bowel sounds, no guarding or rigidity. SPINE: No scoliosis or deformity SKIN: No rashes CENTRAL NERVOUS SYSTEM: No focal deficits, tone is normal in all 4 extremities. EXTREMITIES: There is no peripheral edema. No clubbing, no cyanosis. Peripheral pulses are intact. - Labs CBC & Chem 7: 01/28/24 06:10 01/28/24 06:10 Assessment and Plan Plan: Acute exacerbation of chronic obstructive pulmonary disease, still active, bronchospastic and wheezy, continues to have congested cough, unable to bring up much sputum. May benefit from bronchoscopy Acute hypoxemic respiratory failure secondary to above Severe Gold stage IV chronic obstructive pulmonary disease with an FEV1 value 30% of predicted Former smoker Breast cancer, status post chemotherapy completed in July 2023 Hyperlipidemia Gastroesophageal reflux disease Oropharyngeal candidiasis Plan: Start the patient on Diflucan for oropharyngeal candidiasis Continue the current treatment plan She has been slow to progress Will schedule the patient for a bronchoscopy with BAL if no improvement in addition to a therapeutic airway suctioning endobronchial lavage Will continue to follow.
--- NOTE | 2024-02-01 15:03 | P.PN ---
Progress Note - Text Progress Note Date: 02/01/24 Chief Complaint: Short of breath Very pleasant 73-year-old patient, follows with Dr. Mohan. Traveling Passenger Agent Dr. Parker. Oncologist Dr. Garber. diagnosed with breast cancer. Stage I. Triple negative. Posterior lymph nodes. Received chemotherapy. 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 Parker. Patient been short of breath all summer. Congested cough. Not able to expectorate. It is all stuck in the chest. On home oxygen 2 L. No fever no chills. Eating fair. Able to get around the house. Family at the bedside. January 27: Patient overflowing the ER. Up in a chair. Congested cough. No expectoration. I-S and flutter valve ordered. Told patient to use every 1015 minutes. No lavage per pulmonary. Patient IV Solu-Medrol. Mucinex. DuoNeb. Eating well January 28: Up in a chair. Congested cough. Unable to expectorate. Ordered to humidify oxygen. Remains on IV Solu-Medrol. 60 mg every 6. January 29: Continues with a wet cough. Very little expectoration. Dr. Strange is planning a lavage early next week. Remains on IV Solu-Medrol. Using incentive spirometry and flutter valve. Humidified oxygen. January 30: Expectoration. Per Dr. Patel continue with steroids. 97% room air. Eating fair January 31: Congested wet cough. On 3 days of oxygen. Discussed with Dr. Henao from pulmonary. Plan for bronchial lavage suctioning tomorrow. Oral candidiasis. Diflucan be started. No bowel movement for last for 5 days. Will give Metamucil and lactulose. If not then we will need Dulcolax suppository. Active Medications Acetaminophen (Acetaminophen Tab 325 Mg Tab) 650 mg PO Q6HR PRN PRN Reason: Mild Pain or Fever > 100.5 Last Admin: 01/27/24 22:35 Dose: 650 mg Albuterol/Ipratropium (Ipratropium-Albuterol 3 Ml Neb) 3 ml INHALATION RT-QID [facility] Last Admin: 02/01/24 12:33 Dose: 3 ml Albuterol/Ipratropium (Ipratropium-Albuterol 3 Ml Neb) 3 ml INHALATION RT-Q2H PRN PRN Reason: Shortness Of Breath Or Wheezing Atorvastatin Calcium (Atorvastatin 10 Mg Tab) 10 mg PO W/SUPPER [facility] Last Admin: 01/31/24 17:24 Dose: 10 mg Budesonide (Budesonide 1 Mg/2 Ml Nebu) 1 mg INHALATION RT-BID [facility] Last Admin: 02/01/24 09:29 Dose: 1 mg Calcium Carbonate (Calcium Carb-Vit D 500 Mg-5 Mcg Tab) 1 each PO W/SUPPER [facility] Last Admin: 01/31/24 17:24 Dose: 1 each Carbamazepine (Carbamazepine Chew 100 Mg Chew) 100 mg PO DAILY PRN PRN Reason: nerve pain Diltiazem HCl (Diltiazem Oral 30 Mg Tab) 30 mg PO TID [facility] Last Admin: 02/01/24 09:07 Dose: 30 mg Doxycycline Monohydrate (Doxycycline 100 Mg Cap) 100 mg PO BID [facility]; Protocol Last Admin: 02/01/24 09:07 Dose: 100 mg Fluconazole (Fluconazole 100 Mg Tab) 100 mg PO DAILY [facility]; Protocol Formoterol Fumarate (Formoterol Fumarate 20 Mcg/2 Ml Nebu) 20 mcg INHALATION RT-BID [facility] Last Admin: 02/01/24 09:29 Dose: 20 mcg Guaifenesin (Guaifenesin 600 Mg Tablet.Er) 600 mg PO QID [facility] Last Admin: 02/01/24 12:31 Dose: 600 mg Latanoprost (Latanoprost 0.005% Ophth Drops 2.5 Ml Btl) 1 drops BOTH EYES HS [facility] Last Admin: 01/31/24 20:50 Dose: 1 drops Methylprednisolone Sodium Succinate (Methylprednisolone Sod Succi 125 Mg/2 Ml Vial) 60 mg IV Q6HR [facility] Last Admin: 02/01/24 12:31 Dose: 60 mg Naloxone HCl (Naloxone 0.4 Mg/Ml 1 Ml Vial) 0.2 mg IV Q2M PRN PRN Reason: Opioid Reversal Pantoprazole Sodium (Pantoprazole 40 Mg Tablet) 40 mg PO DAILY [facility] Last Admin: 02/01/24 09:07 Dose: 40 mg Psyllium Hydrophilic Mucilloid (Psyllium Husk 100% 6 Gm Packet) 6 gm PO DAILY [facility] Last Admin: 02/01/24 12:31 Dose: 6 gm Past medical history to include: COPD, hyperlipidemia, breast cancer triple negative, home oxygen 2 L Social history: Lives alone. . Smoked for about 31 years, stopped around 1999. No alcohol Physical examination: VITAL SIGNS: 97.9, 96, 18, 128 x 77, 97% on 3 L GENERAL: Up in chair, shortness of breath EYES: Pupils equal. Conjunctiva normal. HEENT: External appearance of nose and ears normal, oral cavity white spots on tongue NECK: JVD not raised; masses not palpable. HEART: First and second heart sounds are normal; no edema. LUNGS:[ Respiratory rate increased l, diminished breath sounds , expiratory crackles- ABDOMEN: Soft, nontender, liver spleen not palpable, no masses palpable. PSYCH: [Alert and oriented x3; mood and affect anxious MUSCULOSKELETAL:No Clubbing/cyanosis;muscles-grossly intact. Evidence of OA INVESTIGATIONS, reviewed in the clinical context: January 27: White count 7.9 hemoglobin 12.5 platelets 244 sodium 136 potassium 4.5 creatinine 0.7 January 27, 2024: White count 5.4 hemoglobin 12.8 platelets 245 sodium 133 potassium 4.4 creatinine 0.67 Troponin I less than 0.012 proBNP 401 EKG tracing personally reviewed by me-sinus tachycardia. P pulmonale. Chest x-ray film personally reviewed by me-hyperinflated. Interstitial changes Assessment and plan: -Acute COPD exacerbation in a prior smoker, steroid-dependent: DuoNeb. IV Solu-Medrol decreased to 40 mg every 12. Nebulized Pulmicort -Acute severe tracheobronchitis. Patient said previous bronchial lavage: Not improving Mucinex. humidified oxygen. Flutter valve. Doxycycline Discussed with Dr. Henao from pulmonary. For lavage tomorrow. -Oral mucocutaneous candidiasis Start Diflucan -Chronic hypoxic respiratory failure secondary to underlying COPD 2 L of oxygen at home -Hyperlipidemia Lipitor 10 mg nightly -GERD Omeprazole -Hyperlipidemia Lipitor 10 mg with supper -Breast cancer-, triple negative. Received chemotherapy being followed by Dr. Garber from oncology. -Full code Add Diflucan. For bronchial lavage tomorrow. Past Medical History Past Medical History: COPD, Eye Disorder, Hyperlipidemia Additional Past Medical History / Comment(s): Bronchitis, bilateral eyes with increased intraocular pressure-not glaucoma yet, neuralgia R side forhead in past,daily steroid, FOOD GETS STUCK IN THROAT, BLOATING, wears oxygen 2lnc as needed History of Any Multi-Drug Resistant Organisms: None Reported Past Surgical History: Breast Surgery, Hernia Repair, Orthopedic Surgery Additional Past Surgical History / Comment(s): Bilateral carpal tunnel; bilateral cataract removal with lens, bronchoscopy, R inguinal hernia repair, colonoscopy RT BREAST BIOSPY, and the node had chemo and radiation july 2023, colonoscopy Past Anesthesia/Blood Transfusion Reactions: No Reported Reaction Additional Past Anesthesia/Blood Transfusion Reaction / Comment(s): no blood transfusion Past Psychological History: No Psychological Hx Reported Smoking Status: Former smoker Past Alcohol Use History: None Reported Past Drug Use History: None Reported
[2024-02-01] MEDS: bisacodyL 10 MG SUPP RECTAL STA (16:45)
[2024-02-01] MEDS: methylPREDNISolone SOD SUCCI 40 MG/ML 1 ML VIAL IV SCH (21:19)
[2024-02-02 05:53] LABS: African American GFR (CKD) 89 (>60 ml/min/1.73 sqM); Anion Gap 1 mmol/L; Blood Urea Nitrogen 20 mg/dL (7-17); Calcium 9.4 mg/dL (8.4-10.2); Carbon Dioxide 29 mmol/L (22-30); Chloride 104 mmol/L (98-107); Glucose 148 mg/dL (74-99); Non-African American GFR(CKD) 77 (>60 ml/min/1.73 sqM); Potassium 3.7 mmol/L (3.5-5.1); Sodium 134 mmol/L (137-145)
[2024-02-02] MEDS: FLUCONAZOLE 100 MG TAB PO SCH (09:33)
[2024-02-02] MEDS ORDERED: MIDAZOLAM 2 MG/2 ML VIAL ONE (11:12)
[2024-02-02] MEDS ORDERED: KETAMINE HCL IN 0.9 % NACL 50 MG/5 ML SYRINGE ONE (11:12)
[2024-02-02] MEDS ORDERED: LIDOCAINE 1% INJ 10MG/ML (20 ML MDV) ONE (11:12)
[2024-02-02] MEDS ORDERED: PROPOFOL 10 MG/ML 20 ML VIAL IV ONE (11:12)
[2024-02-02] MEDS: SODIUM CHLORIDE 0.9% 500 ML 500 ML IV ONE (11:14)
--- NOTE | 2024-02-02 21:46 | P.PN ---
Progress Note - Text Progress Note Date: 02/02/24 Chief Complaint: Short of breath Very pleasant 73-year-old patient, follows with Dr. Mohan. Loan Administrator Dr. Parker. Oncologist Dr. Garber. diagnosed with breast cancer. Stage I. Triple negative. Posterior lymph nodes. Received chemotherapy. Patient sent in from the office of her cell operation supervisor Dr. Parker. Patient been short of breath all summer. Congested cough. Not able to expectorate. It is all stuck in the chest. On home oxygen 2 L. No fever no chills. Eating fair. Able to get around the house. Family at the bedside. January 27: Patient overflowing the ER. Up in a chair. Congested cough. No expectoration. I-S and flutter valve ordered. Told patient to use every 1015 minutes. No lavage per pulmonary. Patient IV Solu-Medrol. Mucinex. DuoNeb. Eating well January 28: Up in a chair. Congested cough. Unable to expectorate. Ordered to humidify oxygen. Remains on IV Solu-Medrol. 60 mg every 6. January 29: Continues with a wet cough. Very little expectoration. Dr. Strange is planning a lavage early next week. Remains on IV Solu-Medrol. Using incentive spirometry and flutter valve. Humidified oxygen. January 30: Expectoration. Per Dr. Patel continue with steroids. 97% room air. Eating fair January 31: Congested wet cough. On 3 days of oxygen. Discussed with Dr. Henao from pulmonary. Plan for bronchial lavage suctioning tomorrow. Oral candidiasis. Diflucan be started. No bowel movement for last for 5 days. Will give Metamucil and lactulose. If not then we will need Dulcolax suppository. February 01: Underwent bronchoscopy with lavage. Extensive thick secretions removed by Dr. Henao. Feeling better. Had a bowel movement with suppository yesterday. Eating a meal. Discussed. Probably home discharge tomorrow. Active Medications Acetaminophen (Acetaminophen Tab 325 Mg Tab) 650 mg PO Q6HR PRN PRN Reason: Mild Pain or Fever > 100.5 Last Admin: 01/27/24 22:35 Dose: 650 mg Albuterol/Ipratropium (Ipratropium-Albuterol 3 Ml Neb) 3 ml INHALATION RT-QID S Last Admin: 02/02/24 21:04 Dose: 3 ml Albuterol/Ipratropium (Ipratropium-Albuterol 3 Ml Neb) 3 ml INHALATION RT-Q2H PRN PRN Reason: Shortness Of Breath Or Wheezing Atorvastatin Calcium (Atorvastatin 10 Mg Tab) 10 mg PO W/SUPPER [facility] Last Admin: 02/02/24 17:24 Dose: 10 mg Budesonide (Budesonide 1 Mg/2 Ml Nebu) 1 mg INHALATION RT-BID [facility] Last Admin: 02/02/24 21:04 Dose: 1 mg Calcium Carbonate (Calcium Carb-Vit D 500 Mg-5 Mcg Tab) 1 each PO W/SUPPER [facility] Last Admin: 02/02/24 17:22 Dose: 1 each Carbamazepine (Carbamazepine Chew 100 Mg Chew) 100 mg PO DAILY PRN PRN Reason: nerve pain Diltiazem HCl (Diltiazem Oral 30 Mg Tab) 30 mg PO TID [facility] Last Admin: 02/02/24 21:34 Dose: 30 mg Doxycycline Monohydrate (Doxycycline 100 Mg Cap) 100 mg PO BID [facility]; Protocol Last Admin: 02/02/24 20:27 Dose: 100 mg Fluconazole (Fluconazole 100 Mg Tab) 100 mg PO DAILY [facility]; Protocol Last Admin: 02/02/24 09:33 Dose: 100 mg Formoterol Fumarate (Formoterol Fumarate 20 Mcg/2 Ml Nebu) 20 mcg INHALATION RT-BID [facility] Last Admin: 02/02/24 21:04 Dose: 20 mcg Guaifenesin (Guaifenesin 600 Mg Tablet.Er) 600 mg PO QID [facility] Last Admin: 02/02/24 21:34 Dose: 600 mg Latanoprost (Latanoprost 0.005% Ophth Drops 2.5 Ml Btl) 1 drops BOTH EYES HS [facility] Last Admin: 02/02/24 20:27 Dose: 1 drops Methylprednisolone Sodium Succinate (Methylprednisolone Sod Succi 40 Mg/Ml 1 Ml Vial) 40 mg IV Q12HR [facility] Last Admin: 02/02/24 20:27 Dose: 40 mg Naloxone HCl (Naloxone 0.4 Mg/Ml 1 Ml Vial) 0.2 mg IV Q2M PRN PRN Reason: Opioid Reversal Pantoprazole Sodium (Pantoprazole 40 Mg Tablet) 40 mg PO DAILY [facility] Last Admin: 02/02/24 09:33 Dose: 40 mg Past medical history to include: COPD, hyperlipidemia, breast cancer triple negative, home oxygen 2 L Social history: Lives alone. . Smoked for about 31 years, stopped around 1999. No alcohol Physical examination: VITAL SIGNS: 97.9, 109, 20, 150/81, 96% on 3 L GENERAL: Up in chair, eating supper EYES: Pupils equal. Conjunctiva normal. HEENT: External appearance of nose and ears normal, oral cavity white spots on tongue NECK: JVD not raised; masses not palpable. HEART: First and second heart sounds are normal; no edema. LUNGS:[ Respiratory rate increased l, diminished breath sounds , ABDOMEN: Soft, nontender, liver spleen not palpable, no masses palpable. PSYCH: [Alert and oriented x3; mood and affect anxious MUSCULOSKELETAL:No Clubbing/cyanosis;muscles-grossly intact. Evidence of OA INVESTIGATIONS, reviewed in the clinical context: February 01: Potassium 3.7 creatinine 0.77 January 27: White count 7.9 hemoglobin 12.5 platelets 244 sodium 136 potassium 4.5 creatinine 0.7 January 27, 2024: White count 5.4 hemoglobin 12.8 platelets 245 sodium 133 potassium 4.4 creatinine 0.67 Troponin I less than 0.012 proBNP 401 EKG tracing personally reviewed by me-sinus tachycardia. P pulmonale. Chest x-ray film personally reviewed by me-hyperinflated. Interstitial changes Assessment and plan: -Acute COPD exacerbation in a prior smoker, steroid-dependent: Better DuoNeb. IV Solu-Medrol 40 mg every 12. Nebulized Pulmicort -Acute severe tracheobronchitis. Patient said previous bronchial lavage: Impro maria isabel Mucinex. humidified oxygen. Flutter valve. Doxycycline Dr. Henao carried out of bronchoscopy with lavage extensive thick secretions removed -Oral mucocutaneous candidiasis Diflucan -Chronic hypoxic respiratory failure secondary to underlying COPD 2 L of oxygen at home -Hyperlipidemia Lipitor 10 mg nightly -GERD Omeprazole -Hyperlipidemia Lipitor 10 mg with supper -Breast cancer-, triple negative. Received chemotherapy being followed by Dr. Garber from oncology. -Full code Chief to oral prednisone in the morning. Discussed. Hopefully home tomorrow. Past Medical History Past Medical History: COPD, Eye Disorder, Hyperlipidemia Additional Past Medical History / Comment(s): Bronchitis, bilateral eyes with increased intraocular pressure-not glaucoma yet, neuralgia R side forhead in past,daily steroid, FOOD GETS STUCK IN THROAT, BLOATING, wears oxygen 2lnc as needed History of Any Multi-Drug Resistant Organisms: None Reported Past Surgical History: Breast Surgery, Hernia Repair, Orthopedic Surgery Additional Past Surgical History / Comment(s): Bilateral carpal tunnel; bilateral cataract removal with lens, bronchoscopy, R inguinal hernia repair, colonoscopy RT BREAST BIOSPY, and the node had chemo and radiation july 2023, colonoscopy Past Anesthesia/Blood Transfusion Reactions: No Reported Reaction Additional Past Anesthesia/Blood Transfusion Reaction / Comment(s): no blood t ransfusion Past Psychological History: No Psychological Hx Reported Smoking Status: Former smoker Past Alcohol Use History: None Reported Past Drug Use History: None Reported
--- NOTE | 2024-02-02 22:19 | P.PN ---
Subjective Progress Note Date: 02/02/24 This is a very pleasant 73-year-old female patient with a known history of oxygen dependent COPD her FEV1 value was 30% of predicted, breast cancer completed chemotherapy in July 2023, hyperlipidemia, gastroesophageal reflux disease, former smoker. She presented here to the emergency room yesterday with complaints of increasing shortness of breath, cough and congestion. Chest x-ray reveals no acute pulmonary process. Evidence of COPD changes. Count 7.9. Hemoglobin 12.5. Platelets 244. Sodium 136. Potassium 4.5. Bicarb 26. BUN 10. Creatinine 0.7. Glucose 141. Troponin negative x 1. proBNP 401. She is seen today in consultation in the emergency department. She is sitting up in a chair. Awake and alert in no acute distress. She does have bilateral end expiratory wheeze, loose nonproductive cough. Denies any fever or chills. No hemoptysis. Has been initiated on DuoNeb inhalations, Pulmicort and performing scintillations, Solu-Medrol. On empiric antibiotics in the form of doxycycline. Procalcitonin pending. The patient is seen today January 29, 2024 in follow-up on the regular medical floor. She is currently up ambulating in her room. Awake and alert in no acute distress. Maintaining O2 saturations in the 90s on 2 L/min per nasal cannula. No IV fluids. She is continued on DuoNeb inhalations, Pulmicort and performing scintillations, Solu-Medrol. Empiric antibiotics in the form of doxycycline. Procalcitonin is still pending. The patient is seen today January 30, 2024 in follow-up on the regular medical floor. She is currently sitting up in a chair having breakfast. Awake and alert in no acute distress. Improving today compared to yesterday. Still not quite back to her baseline. Still with some end expiratory wheezing. She is maintaining O2 saturations in the mid 90s on 2-1/2 L/min per nasal cannula. No new labs today. She is continued on DuoNeb inhalations, Pulmicort and Perforomist inhalations, Solu-Medrol. Empiric antibiotics in the form of doxycycline. Procalcitonin is still pending. The patient is seen today January 31, 2024 in follow-up on the regular medical floor. He is awake and alert in no acute distress. Sitting up in a chair. Denies any worsening shortness of breath, cough or congestion. Still not quite back to her baseline. Continues with a loose cough. She is maintaining O2 saturations in the upper 90s on 3 L/min per nasal cannula. No new labs today. She remains on DuoNeb and elations, Pulmicort and Perforomist inhalations, Solu- Medrol. Remains on doxycycline. Procalcitonin still pending. Mucinex for her congestion. On today's evaluation of [id number], patient is being seen for a follow-up. The holly perkins is being treated for an acute exacerbation. The patient is known to the past COPD with an FEV1 of 30% of predicted. The patient continues to have cough and congestion unable to bring up much sputum and her progress has been/limited over the past 5 days. As such, bronchoscopy and therapeutic airway suctioning endobronchial lavage was recommended. She is currently on oxygen at 3 L. On examination, she remains bronchospastic and wheezy. No new labs are available from today. On her medications, she is on DuoNeb nebulized treatment [id number], performance of Pulmicort nebulized treatments, doxycycline, and IV Solu-Medrol. Diflucan was also added as the patient was noted to have oropharyngeal candidiasis. 02/02/2024, the patient is being seen for a follow-up. The plan is to do a bronchoscopy as the patient has shown limited improvement in terms of COPD exacerbation she continues to have a congested cough. Suspect underlying tracheobronchomalacia. Electrolytes from today are all within normal limits. Procalcitonin level at time of admission was 0.06. The patient has no other new complaints. She remains on oxygen at 3 L/min nasal cannula. The current medication includes DuoNeb updrafts, doxycycline, Perforomist and Pulmicort nebulized treatments [id number] and the patient is currently on a prednisone burst taper starting with 60 mg p.o. daily and IV Solu-Medrol has been discontinued. Objective - Vital Signs Vital signs: Vital Signs Temp 97.5 F L 02/02/24 07:59 Pulse 100 02/02/24 12:02 Resp 17 02/02/24 07:59 BP 156/81 02/02/24 07:59 Pulse Ox 96 02/02/24 07:59 FiO2 Intake & Output 02/01/24 02/02/24 02/02/24 18:59 06:59 18:59 Intake Total 250 Output Total 3 Balance -3 250 Intake: IV 250 Output: Stool 3 Other: Voiding Method Toilet Toilet # Voids 4 1 # Bowel Movements 2 - Exam GENERAL EXAM: Alert, 73-year-old female, on 3 L nasal cannula, up in a chair, in no apparent distress. HEAD: Normocephalic. EYES: Normal reaction of pupils, equal size. NOSE: Clear with pink turbinates. THROAT: No erythema or exudates. The patient has thrush NECK: No masses, no JVD. CHEST: No chest wall deformity. LUNGS: Equal air entry with bilateral end expiratory wheeze, diminished. CVS: S1 and S2 normal with no audible murmur, regular rhythm. ABDOMEN: No hepatosplenomegaly, normal bowel sounds, no guarding or rigidity. SPINE: No scoliosis or deformity SKIN: No rashes CENTRAL NERVOUS SYSTEM: No focal deficits, tone is normal in all 4 extremities. EXTREMITIES: There is no peripheral edema. No clubbing, no cyanosis. Peripheral pulses are intact. - Labs CBC & Chem 7: 01/28/24 06:10 02/02/24 05:07 Labs: Abnormal Lab Results - Last 24 Hours (Table) 02/02/24 Range/Units 05:07 Sodium 134 L (137-145) mmol/L BUN 20 H (7-17) mg/dL Glucose 148 H (74-99) mg/dL Assessment and Plan Plan: Acute exacerbation of chronic obstructive pulmonary disease, still active, bronchospastic and wheezy, continues to have congested cough, unable to bring up much sputum. May benefit from bronchoscopy Acute hypoxemic respiratory failure secondary to above Severe Gold stage IV chronic obstructive pulmonary disease with an FEV1 value 30% of predicted Former smoker Breast cancer, status post chemotherapy completed in July 2023 Hyperlipidemia Gastroesophageal reflux disease Oropharyngeal candidiasis Plan: Continue Diflucan for oropharyngeal candidiasis Continue the current treatment plan Bronchodilators with DuoNeb Perforomist and Pulmicort updrafts twice a day Prednisone burst taper starting with 60 mg She has been slow to progress Plan bronchoscopy with BAL today Will continue to follow.
--- NOTE | 2024-02-02 22:23 | P.PCN ---
Date of Procedure: 02/02/24 Preoperative Diagnosis: COPD exacerbation, tracheobronchitis Postoperative Diagnosis: Diffuse tracheobronchitis and severe tracheobronchomalacia Procedure(s) Performed: Flexible bronchoscopy, bronchoalveolar lavage of the left lower lobe Anesthesia: MAC Surgeon: Vinny Henao Estimated Blood Loss (ml): 0 Pathology: other Condition: stable Disposition: floor Operative Findings: This procedure was done in the endoscopy suite. A consent was signed. Timeout was obtained. Patient was placed on a 10 L full facemask. Anesthetic agent was administered by anesthesia and MAIL HANDLER SORTER at the bedside. After achieving adequate sedation, the flexor bronchoscope was introduced through the right nostril. The bronchoscope was advanced into the upper airway and examination of posterior pharynx and larynx showed some loose respiratory secretions that were suctioned out without any major difficulties. Epiglottis, vallecula, arytenoids and the vocal cords were then inspected and all of this operative instructions were within normal limits with normal abduction and adduction of the vocal cords. Following that, a total of 2 cc of 1% lidocaine was applied to the vocal cord and the bronchoscope was advanced to the upper trachea. Immediately, it was noted that the patient has severe tracheobronchomalacia with dynamic collapse severity of the airway and significant narrowing of the trachea and the bilateral mainstem bronchi with exhalation and coughing. In addition, there was copious amount of creamy purulent respiratory secretions within the patient's airway. Secretions were quite thick and stringy. Therapeutic airway suctioning was done. The bronchoscope had to be moved in and out of the airway on multiple occasions as the patient secretions were quite thick and there were occluding the working chamber of the bronchoscope. The underlying bronchial mucosa was diffusely inflamed and edematous. There was areas of superficial hemorrhage and bleeding due to the severe inflammation. After airway patency was achieved, completed inspection was done. Visualized airways included trachea, bilateral mainstem bronchi, right upper lobe bronchus, bronchus intermedius, right middle and right lower lobe bronchus elevated stent segments on the left and examination of the left side including the left mainstem bronchus, left upper and left lower bronchus and the basilar segments on the left. Noted the mucosal inflammatory changes were rather diffuse. Bronchial lavage of the left lower lobe was done with a total of 4 cc of fluid was infused and 10 cc was suctioned back and aspirate was quite purulent and cloudy. Bronchoscope was removed, procedure was terminated and the patient was transferred to recovery in stable condition.
[2024-02-03 02:51] VITALS: TEMP 98.1
[2024-02-03 07:47] VITALS: BP 162/79; RESP 16
[2024-02-03] MEDS: predniSONE 20 MG TAB PO SCH (09:33)
[2024-02-03 11:28] VITALS: PULSE 108
--- NOTE | 2024-02-03 20:28 | P.PN ---
Progress Note - Text Progress Note Date: 02/03/24 Chief Complaint: Short of breath Very pleasant 73-year-old patient, follows with Dr. Mohan. Data Warehouse Developer Dr. Parker. Oncologist Dr. Garber. diagnosed with breast cancer. Stage I. Triple negative. Posterior lymph nodes. Received chemotherapy. Patient sent in from the office of her dust control engineer Dr. Parker. Patient been short of breath all summer. Congested cough. Not able to expectorate. It is all stuck in the chest. On home oxygen 2 L. No fever no chills. Eating fair. Able to get around the house. Family at the bedside. January 27: Patient overflowing the ER. Up in a chair. Congested cough. No expectoration. I-S and flutter valve ordered. Told patient to use every 1015 minutes. No lavage per pulmonary. Patient IV Solu-Medrol. Mucinex. DuoNeb. Eating well January 28: Up in a chair. Congested cough. Unable to expectorate. Ordered to humidify oxygen. Remains on IV Solu-Medrol. 60 mg every 6. January 29: Continues with a wet cough. Very little expectoration. Dr. Strange is planning a lavage early next week. Remains on IV Solu-Medrol. Using incentive spirometry and flutter valve. Humidified oxygen. January 30: Expectoration. Per Dr. Patel continue with steroids. 97% room air. Eating fair January 31: Congested wet cough. On 3 days of oxygen. Discussed with Dr. Henao from pulmonary. Plan for bronchial lavage suctioning tomorrow. Oral candidiasis. Diflucan be started. No bowel movement for last for 5 days. Will give Metamucil and lactulose. If not then we will need Dulcolax suppository. February 01: Underwent bronchoscopy with lavage. Extensive thick secretions removed by Dr. Henao. Feeling better. Had a bowel movement with suppository yesterday. Eating a meal. Discussed. Probably home discharge tomorrow. February 02: Doing better today. Discussed Juliano. Patient will be dis charged on short course of Diflucan. Prednisone taper. Then to maintenance dose of 5 mg a day. Patient to follow-up with her dust control engineer Dr. Parker outpatient. Stop antibiotics. Questions answered Discussion and discharge planning more than 35 minutes Past medical history to include: COPD, hyperlipidemia, breast cancer triple negative, home oxygen 2 L Social history: Lives alone. . Smoked for about 31 years, stopped around 1999. No alcohol Physical examination: VITAL SIGNS: 98.1, 102, 16, 162/79, 95% on 2 L GENERAL: Up in chair, breathing better EYES: Pupils equal. Conjunctiva normal. HEENT: External appearance of nose and ears normal, oral cavity white spots on tongue NECK: JVD not raised; masses not palpable. HEART: First and second heart sounds are normal; no edema. LUNGS:[ Respiratory rate increased l, occasional wet crackle, ABDOMEN: Soft, nontender, liver spleen not palpable, no masses palpable. PSYCH: [Alert and oriented x3; mood and affect anxious MUSCULOSKELETAL:No Clubbing/cyanosis;muscles-grossly intact. Evidence of OA INVESTIGATIONS, reviewed in the clinical context: February 01: Potassium 3.7 creatinine 0.77 January 27: White count 7.9 hemoglobin 12.5 platelets 244 sodium 136 potassium 4.5 creatinine 0.7 January 27, 2024: White count 5.4 hemoglobin 12.8 platelets 245 sodium 133 potassium 4.4 creatinine 0.67 Troponin I less than 0.012 proBNP 401 EKG tracing personally reviewed by me-sinus tachycardia. P pulmonale. Chest x-ray film personally reviewed by me-hyperinflated. Interstitial changes Assessment and plan: -Acute COPD exacerbation in a prior smoker, steroid-dependent: Better DuoNeb. IV Solu-Medrol, discharged on prednisone taper. Nebulized Pulmicort -Acute severe tracheobronchitis. previous bronchial lavage: Improved Mucinex. humidified oxygen. Flutter valve. Doxycycline-course completed Dr. Henao carried out of bronchoscopy with lavage extensive thick secretions removed -Oral mucocutaneous candidiasis Diflucan 7 days -Chronic hypoxic respiratory failure secondary to underlying COPD 2 L of oxygen at home -Hyperlipidemia Lipitor 10 mg nightly -GERD Omeprazole -Hyperlipidemia Lipitor 10 mg with supper -Breast cancer-, triple negative. Received chemotherapy being followed by Dr. Garber from oncology. -Full code Disposition: Home Past Medical History Past Medical History: COPD, Eye Disorder, Hyperlipidemia Additional Past Medical History / Comment(s): Bronchitis, bilateral eyes with increased intraocular pressure-not glaucoma yet, neuralgia R side forhead in past,daily steroid, FOOD GETS STUCK IN THROAT, BLOATING, wears oxygen 2lnc as needed History of Any Multi-Drug Resistant Organisms: None Reported Past Surgical History: Breast Surgery, Hernia Repair, Orthopedic Surgery Additional Past Surgical History / Comment(s): Bilateral carpal tunnel; bilateral cataract removal with lens, bronchoscopy, R inguinal hernia repair, colonoscopy RT BREAST BIOSPY, and the node had chemo and radiation july 2023, colonoscopy Past Anesthesia/Blood Transfusion Reactions: No Reported Reaction Additional Past Anesthesia/Blood Transfusion Reaction / Comment(s): no blood transfusion Past Psychological History: No Psychological Hx Reported Smoking Status: Former smoker Past Alcohol Use History: None Reported Past Drug Use History: None Reported
--- NOTE | 2024-03-01 22:51 | P.DS ---
Providers Date of admission: 02/01/24 10:07 Expected date of discharge: 02/03/24 Attending physician: Deonte Nolen Consults: 01/27/24 14:20 Consult Physician Urgent Consulting Provider: Bucky Patel Consult Reason/Comments: copd exacerbation Do you want consulting provider notified?: Yes Primary care physician: [facility] Course: Chief Complaint: Short of breath Very pleasant 73-year-old patient, follows with Dr. Mohan. Alignment Specialist Dr. Parker. Oncologist Dr. Garber. diagnosed with breast cancer. Stage I. Triple negative. Posterior lymph nodes. Received chemotherapy. Patient sent in from the office of her penciller Dr. Parker. Patient been short of breath all summer. Congested cough. Not able to expectorate. It is all stuck in the chest. On home oxygen 2 L. No fever no chills. Eating fair. Able to get around the house. Family at the bedside. January 27: Patient overflowing the ER. Up in a chair. Congested cough. No expectoration. I-S and flutter valve ordered. Told patient to use every 1015 minutes. No lavage per pulmonary. Patient IV Solu-Medrol. Mucinex. DuoNeb. Eating well January 28: Up in a chair. Congested cough. Unable to expectorate. Ordered to humidify oxygen. Remains on IV Solu-Medrol. 60 mg every 6. January 29: Continues with a wet cough. Very little expectoration. Dr. Strange is planning a lavage early next week. Remains on IV Solu-Medrol. Using incentive spirometry and flutter valve. Humidified oxygen. January 30: Expectoration. Per Dr. Patel continue with steroids. 97% room air. Eating fair January 31: Congested wet cough. On 3 days of oxygen. Discussed with Dr. Henao from pulmonary. Plan for bronchial lavage suctioning tomorrow. Oral candidiasis. Diflucan be started. No bowel movement for last for 5 days. Will give Metamucil and lactulose. If not then we will need Dulcolax suppository. February 01: Underwent bronchoscopy with lavage. Extensive thick secretions removed by Dr. Henao. Feeling better. Had a bowel movement with suppository yesterday. Eating a meal. Discussed. Probably home discharge tomorrow. Joseline 5: Doing better today. Discussed Juliano. Patient will be discharged on short course of Diflucan. Prednisone taper. Then to maintenance dose of 5 mg a day. Patient to follow-up with her penciller Dr. Parker outpatient. Stop antibiotics. Questions answered Discussion and discharge planning more than 35 minutes Past medical history to include: COPD, hyperlipidemia, breast cancer triple negative, home oxygen 2 L Social history: Lives alone. . Smoked for about 31 years, stopped around 1999. No alcohol Physical examination: VITAL SIGNS: 98.1, 102, 16, 162/79, 95% on 2 L GENERAL: Up in chair, breathing better EYES: Pupils equal. Conjunctiva normal. HEENT: External appearance of nose and ears normal, oral cavity white spots on tongue NECK: JVD not raised; masses not palpable. HEART: First and second heart sounds are normal; no edema. LUNGS:[ Respiratory rate increased l, occasional wet crackle, ABDOMEN: Soft, nontender, liver spleen not palpable, no masses palpable. PSYCH: [Alert and oriented x3; mood and affect anxious MUSCULOSKELETAL:No Clubbing/cyanosis;muscles-grossly intact. Evidence of OA INVESTIGATIONS, reviewed in the clinical context: February 01: Potassium 3.7 creatinine 0.77 January 27: White count 7.9 hemoglobin 12.5 platelets 244 sodium 136 potassium 4.5 creatinine 0.7 January 27, 2024: White count 5.4 hemoglobin 12.8 platelets 245 sodium 133 potassium 4.4 creatinine 0.67 Troponin I less than 0.012 proBNP 401 EKG tracing personally reviewed by me-sinus tachycardia. P pulmonale. Chest x-ray film personally reviewed by me-hyperinflated. Interstitial changes Assessment and plan: -Acute COPD exacerbation in a prior smoker, steroid-dependent: Better DuoNeb. IV Solu-Medrol, discharged on prednisone taper. Nebulized Pulmicort -Acute severe tracheobronchitis. previous bronchial lavage: Improved Mucinex. humidified oxygen. Flutter valve. Doxycycline-course completed Dr. Henao carried out of bronchoscopy with lavage extensive thick secretions removed -Oral mucocutaneous candidiasis Diflucan 7 days -Chronic hypoxic respiratory failure secondary to underlying COPD 2 L of oxygen at home -Hyperlipidemia Lipitor 10 mg nightly -GERD Omeprazole -Hyperlipidemia Lipitor 10 mg with supper -Breast cancer-, triple negative. Received chemotherapy being followed by Dr. Garber from oncology. -Full code Disposition: Home Past Medical History Past Medical History: COPD, Eye Disorder, Hyperlipidemia Additional Past Medical History / Comment(s): Bronchitis, bilateral eyes with increased intraocular pressure-not glaucoma yet, neuralgia R side forhead in past,daily steroid, FOOD GETS STUCK IN THROAT, BLOATING, wears oxygen 2lnc as needed History of Any Multi-Drug Resistant Organisms: None Reported Past Surgical History: Breast Surgery, Hernia Repair, Orthopedic Surgery Additional Past Surgical History / Comment(s): Bilateral carpal tunnel; bilateral cataract removal with lens, bronchoscopy, R inguinal hernia repair, colonoscopy RT BREAST BIOSPY, and the node had chemo and radiation july 2023, colonoscopy Past Anesthesia/Blood Transfusion Reactions: No Reported Reaction Additional Past Anesthesia/Blood Transfusion Reaction / Comment(s): no blood transfusion Past Psychological History: No Psychological Hx Reported Smoking Status: Former smoker Past Alcohol Use History: None Reported Past Drug Use History: None Reported Plan - Discharge Summary Discharge Rx Participant: No New Discharge Prescriptions: New Fluconazole [Diflucan] 100 mg PO DAILY #7 tab guaiFENesin [Mucinex] 600 mg PO QID #120 tab predniSONE 10 mg PO DAILY #30 tab Continue Mometasone/Formoterol [Dulera 200 Mcg-5 Mcg Inhaler] 2 puff INHALATION RT-BID Bimatoprost [Lumigan 0.01% Ophth Soln] 1 drop BOTH EYES HS Ipratropium-Albuterol Nebulize [Duoneb 0.5 mg-3 mg/3 ml Soln] 3 ml INHALATION RT-QID Tiotropium 18 Mcg/Puff [Spiriva] 1 puff INHALATION RT-DAILY Budesonide [Pulmicort] 1 mg INHALATION RT-DAILY Calcium 600mg W/Vitamin D 1 tab PO W/SUPPER Atorvastatin [Lipitor] 10 mg PO W/SUPPER Omeprazole 20 mg PO DAILY predniSONE 5 mg PO DAILY carBAMazepine CHEW [TEGretol Chew] 100 mg PO DAILY PRN PRN Reason: nerve pain Discontinued guaiFENesin-DM 600/30MG [Mucinex Dm] 1 tab PO BID Discharge Medication List Bimatoprost [Lumigan 0.01% Ophth Soln] 1 drop BOTH EYES HS 10/13/17 [History] Mometasone/Formoterol [Dulera 200 Mcg-5 Mcg Inhaler] 2 puff INHALATION RT-BID 10/13/17 [History] Atorvastatin [Lipitor] 10 mg PO W/SUPPER 03/19/21 [History] Omeprazole 20 mg PO DAILY 12/18/22 [History] Ipratropium-Albuterol Nebulize [Duoneb 0.5 mg-3 mg/3 ml Soln] 3 ml INHALATION RT-QID 06/25/23 [History] Tiotropium 18 Mcg/Puff [Spiriva] 1 puff INHALATION RT-DAILY 06/25/23 [History] predniSONE 5 mg PO DAILY 06/25/23 [History] Budesonide [Pulmicort] 1 mg INHALATION RT-DAILY 11/22/23 [History] Calcium 600mg W/Vitamin D 1 tab PO W/SUPPER 01/27/24 [History] carBAMazepine CHEW [TEGretol Chew] 100 mg PO DAILY PRN 01/27/24 [History] Fluconazole [Diflucan] 100 mg PO DAILY #7 tab 02/03/24 [Rx] guaiFENesin [Mucinex] 600 mg PO QID #120 tab 02/03/24 [Rx] predniSONE 10 mg PO DAILY #30 tab 02/03/24 [Rx] Follow up Appointment(s)/Referral(s): Margarito Parker MD [STAFF PHYSICIAN] - 02/25/24 2:15 pm Jluis Mohan DO [Primary Care Provider] - 02/22/24 1:40 pm Patient Instructions/Handouts: COPD (Chronic Obstructive Pulmonary Disease) (DC) Discharge Disposition: HOME SELF-CARE
== END 2024-02-03 13:14 | disposition home or self-care (01) | DRG 190 ==
LOC: EC 11:17 → 6NMEDSUR 14:24 → 4SSUR 01-28 16:32 → OBSVTOIN 02-01 10:07
PROVIDERS: ADMIT Hospitalist; ATTEND Hospitalist
PROC: 0B9J8ZX Drainage of Left Lower Lung Lobe, Via Natural or Artificial Opening Endoscopic, Diagnostic (ICD-10-PCS; principal; 2024-02-02 14:35)
DX: J44.1 Chronic obstructive pulmonary disease with (acute) exacerbation (principal); J96.21 Acute and chronic respiratory failure with hypoxia; B37.0 Candidal stomatitis; C50.911 Malignant neoplasm of unspecified site of right female breast; J39.8 Other specified diseases of upper respiratory tract; Z99.81 Dependence on supplemental oxygen; E78.5 Hyperlipidemia, unspecified; K21.9 Gastro-esophageal reflux disease without esophagitis; Z79.51 Long term (current) use of inhaled steroids; Z88.8 Allergy status to other drugs, medicaments and biological substances; Z92.21 Personal history of antineoplastic chemotherapy; Z92.3 Personal history of irradiation; Z87.891 Personal history of nicotine dependence; Z79.899 Other long term (current) drug therapy; Z17.1 Estrogen receptor negative status [ER-]; Z79.52 Long term (current) use of systemic steroids
CPT/HCPCS: 31624; 31645; 80048; 87070; 87077; 87102; 87116; 87186; 87205; 87206; 87496; 87498; 87502; 87529; 87634; 87635; 87798; 93005; 94640; 94667; 94668; 94760; 96365; 96375; 96376; 99285

== ENCOUNTER 2024-04-15 16:07 | Emergency (ER) | payer MEDICARE ==
--- NOTE | 2024-04-15 16:54 | ED ---
General Adult HPI - General Chief complaint: Shortness of Breath Stated complaint: DOMINIQUE Time Seen by Provider: 04/15/24 16:40 Source: patient, RN notes reviewed, old records reviewed Mode of arrival: ambulatory Limitations: no limitations - History of Present Illness Initial comments: Patient is a 73-year-old female with past medical history remarkable for COPD on chronic 2 L nasal cannula oxygen, hyperlipidemia presents emergency department complaining of COPD flareup. States that this is how she typically feels when she has COPD. States that she coughs but is not coughing anything up but feels like she is getting mucous plugging and struggles to breathe when this occurs. Patient states that has been ongoing for multiple weeks, initially felt better after taking old ciprofloxacin that she had at home. She completed this multiple days ago and then as soon as she was done and began feeling worse again. Presents for further evaluation at this time. Lives by herself. Denies chest pain, nausea, vomiting, abdominal pain, diarrhea. Denies any fevers or chills. No known sick contacts. Presents for further evaluation at this time. Follows up with Dr. Parker. - Related Data Home Medications Medication Instructions Recorded Confirmed Bimatoprost [Lumigan 0.01% Ophth 1 drop BOTH EYES HS 10/13/17 01/27/24 Soln] Mometasone/Formoterol [Dulera 200 2 puff INHALATION RT-BID 10/13/17 01/27/24 Mcg-5 Mcg Inhaler] Atorvastatin [Lipitor] 10 mg PO W/SUPPER 03/19/21 01/27/24 Omeprazole 20 mg PO DAILY 12/18/22 01/27/24 Ipratropium-Albuterol Nebulize 3 ml INHALATION RT-QID 06/25/23 01/27/24 [Duoneb 0.5 mg-3 mg/3 ml Soln] Tiotropium 18 Mcg/Puff [Spiriva] 1 puff INHALATION RT-DAILY 06/25/23 01/27/24 predniSONE 5 mg PO DAILY 06/25/23 01/27/24 Budesonide [Pulmicort] 1 mg INHALATION RT-DAILY 11/22/23 01/27/24 Calcium 600mg W/Vitamin D 1 tab PO W/SUPPER 01/27/24 01/27/24 carBAMazepine CHEW [TEGretol Chew] 100 mg PO DAILY PRN 01/27/24 01/27/24 Previous Rx's Medication Instructions Recorded Fluconazole [Diflucan] 100 mg PO DAILY #7 tab 02/03/24 guaiFENesin [Mucinex] 600 mg PO QID #120 tab 02/03/24 predniSONE 10 mg PO DAILY #30 tab 02/03/24 Sulfamethox-Tmp 800-160Mg [Bactrim 1 tab PO Q12HR 7 Days #14 tab 04/15/24 DS 800-160 mg] predniSONE [Deltasone] 40 mg PO DAILY 5 Days #10 tab 04/15/24 Allergies Allergy/AdvReac Type Severity Reaction Status Date / Time budesonide [From Symbicort] AdvReac ANXIETY Verified 01/27/24 14:41 formoterol [From Symbicort] AdvReac ANXIETY Verified 01/27/24 14:41 zolpidem [From Ambien] AdvReac Hallucinati Verified 01/27/24 14:41 ons Review of Systems ROS Statement: Those systems with pertinent positive or pertinent negative responses have been documented in the HPI. Review of Systems: CONST: Denies fever EYES: Denies blurry vision ENT: Endorses is nasal congestion C/V: Denies Chest pain RESP: Endorses cough GI: Denies abdominal pain : Denies dysuria SKIN: Denies rash. MSK: Denies joint pain. NEURO: Denies headache ROS Other: All systems not noted in ROS Statement are negative. Past Medical History Past Medical History: COPD, Eye Disorder, Hyperlipidemia Additional Past Medical History / Comment(s): Bronchitis, bilateral eyes with increased intraocular pressure-not glaucoma yet, neuralgia R side forhead in past,daily steroid, FOOD GETS STUCK IN THROAT, BLOATING, wears oxygen 2lnc as needed History of Any Multi-Drug Resistant Organisms: None Reported Past Surgical History: Breast Surgery, Hernia Repair, Orthopedic Surgery Additional Past Surgical History / Comment(s): Bilateral carpal tunnel; bilateral cataract removal with lens, bronchoscopy, R inguinal hernia repair, colonoscopy RT BREAST BIOSPY, and the node had chemo and radiation july 2023, colonoscopy Past Anesthesia/Blood Transfusion Reactions: No Reported Reaction Additional Past Anesthesia/Blood Transfusion Reaction / Comment(s): no blood transfusion Past Psychological History: No Psychological Hx Reported Smoking Status: Former smoker Past Alcohol Use History: None Reported Past Drug Use History: None Reported - Past Family History Father Family Medical History: COPD Additional Family Medical History / Comment(s): Father in his 50s of COPD. He was a smoker. Mother Family Medical History: CVA/TIA, Hypertension, Pneumonia Additional Family Medical History / Comment(s): Mother fell at age 85 and fractured her hip. Post op she became HTN and had a stroke and then ended up with pneumonia and . Sister(s) Family Medical History: Cancer Additional Family Medical History / Comment(s): breast General Exam - General Exam Comments Initial Comments: General: Appears in no acute distress. HEAD: Normal with no signs of head trauma. EYES: EOMI ENT: Hearing grossly intact, normal oropharynx. RESPIRATORY: Bilateral end expiratory wheezing. No significant hypoxia on ba seline 2 L nasal cannula oxygen. No significant increased work of breathing. C/V: Regular rate and rhythm. S1 and S2 auscultated, no edema, peripheral pulses 2+ and intact throughout ABD: Abd is soft, nontender, nondistended EXT: Normal range of motion, no obvious deformity SKIN: No rashes or lesions observed on exposed skin. NEURO: Alert and oriented x 4. Limitations: no limitations Course Vital Signs 04/15/24 04/15/24 04/15/24 16:20 17:23 18:00 Temperature 97.6 F 98.0 F Pulse Rate 107 H 89 Respiratory 18 18 16 Rate Blood Pressure 189/96 186/94 O2 Sat by Pulse 95 99 Oximetry Medical Decision Making - Medical Decision Making Was pt. sent in by a medical professional or institution (, PA, YOUTH CARE SPECIALIST, urgent care, hospital, or long-term...) When possible be specific @ -No Did you speak to anyone other than the patient for history (EMS, parent, family, police, friend...)? What history was obtained from this source @ -No Did you review nursing and triage notes (agree or disagree)? Why? @ -I reviewed and agree with nursing and triage notes Were old charts reviewed (outside hosp., previous admission, EMS record, old EKG, old radiological studies, urgent care reports/EKG's, long-term records)? Report findings @ -Compare today's EKG with EKG from December 2023 with no significant acute changes. Differential Diagnosis (chest pain, altered mental status, abdominal pain women, abdominal pain men, vaginal bleeding, weakness, fever, dyspnea, syncope, headache, dizziness, GI bleed, back pain, seizure, CVA, palpatations, mental health, musculoskeletal)? @ -COPD, pneumonia, COVID, flu, RSV. This list is not all inclusive. EKG interpreted by me (3pts min.). @ -As above X-rays interpreted by me (1pt min.). @ -Chest x-ray reveals no obvious acute cardiopulmonary process. CT interpreted by me (1pt min.). @ -None done U/S interpreted by me (1pt. min.). @ -None done What testing was considered but not performed or refused? (CT, X-rays, U/S, labs)? Why? @ -None What meds were considered but not given or refused? Why? @ -None Did you discuss the management of the patient with other professionals (professionals i.e. , PA, YOUTH CARE SPECIALIST, lab, RT, psych nurse, social media project manager, international tax manager, teacher, unarmed security officer, case hardener)? Give summary @ -No Was smoking cessation discussed for >3mins.? @ -No Was critical care preformed (if so, how long)? @ -No Were there social determinants of health that impacted care today? How? (Homelessness, low income, unemployed, alcoholism, drug addiction, transportation, low edu. Level, literacy, decrease access to med. care, senior living, rehab)? @ -No Was there de-escalation of care discussed even if they declined (Discuss DNR or withdrawal of care, Hospice)? DNR status @ -No What co-morbidities impacted this encounter? (DM, HTN, Smoking, COPD, CAD, Cancer, CVA, ARF, Chemo, Hep., AIDS, mental health diagnosis, sleep apnea, morbid obesity)? @ -COPD on baseline 2 L nasal cannula oxygen at home Was patient admitted / discharged? Hospital course, mention meds given and route, prescriptions, significant lab abnormalities, going to OR and other pertinent info. @ -Based on patient's presentation and physical exam, presents emergency department complaining of cough, congestion. Feels like her COPD is flaring up. We will obtain chest x-ray, screen EKG as well as infectious labs. Patient was in agreement this plan. She will be symptomatically treated with IV fluids, DuoNeb, Solu-Medrol. Patient was in agreement this plan. Chest x-ray reveals no obvious acute cardiopulmonary process. EKG reveals no obvious acute ischemic process. Laboratory studies remarkable for no leukocytosis. Negative viral swabs. Remainder the patient's laboratory studies within acceptable limits. On reevaluation, wheezing is improved. Patient resting comfortably saturating 98 to 100% on her baseline 2 L nasal cannula oxygen. I discussed results with patient. I do not believe she requires admission at this time and she was in agreement with plan. She will be discharged home on high doses of prednisone for 5 days as well as antibiotic for tracheobronchitis. She was in agreement this plan. States she typically in the past has either received ciprofloxacin or Bactrim, and is requesting Bactrim which she will be provided with. Recommended follow-up with Dr. Parker her prop maker who she sees this Wednesday. Strict return precautions discussed. Patient given a dose of antibiotic prior to discharge I will provide the patient with a prescription for prednisone, Bactrim. I instructed the patient to follow up with their PCP in the next 1-3 days.. I explained that the patient should return to the emergency department if they experience any worsening symptoms. Strict return precautions were discussed with the patient. The patient expressed understanding of these instructions. I answered all questions that the patient had. The patient was discharged home in good condition with their prescriptions and follow up information. Undiagnosed new problem with uncertain prognosis? @ -No Drug Therapy requiring intensive monitoring for toxicity (Heparin, Nitro, Insulin, Cardizem)? @ -No Were any procedures done? @ -No Diagnosis/symptom? @ -COPD in the setting of chronic hypoxic respiratory failure, tracheobronchitis Acute, or Chronic, or Acute on Chronic? @ -Acute Uncomplicated (without systemic symptoms) or Complicated (systemic symptoms)? @ -Complicated Side effects of treatment? @ -None Exacerbation, Progression, or Severe Exacerbation] @ -No Poses a threat to life or bodily function? @ -Unlikely at this time - Lab Data Result diagrams: 04/15/24 16:57 04/15/24 16:57 Lab Results 04/15/24 04/15/24 04/15/24 Range/Units 16:57 16:57 16:57 WBC 6.0 (3.8-10.6) k/uL RBC 4.34 (3.80-5.40) m/uL Hgb 13.4 (11.4-16.0) gm/dL Hct 42.3 (34.0-46.0) % MCV 97.5 (80.0-100.0) fL MCH 30.8 (25.0-35.0) pg MCHC 31.6 (31.0-37.0) g/dL RDW 14.3 (11.5-15.5) % Plt Count 220 (150-450) k/uL MPV 6.8 Neutrophils % 83 % Lymphocytes % 7 % Monocytes % 8 % Eosinophils % 0 % Basophils % 0 % Neutrophils # 5.0 (1.3-7.7) k/uL Lymphocytes # 0.4 L (1.0-4.8) k/uL Monocytes # 0.5 (0-1.0) k/uL Eosinophils # 0.0 (0-0.7) k/uL Basophils # 0.0 (0-0.2) k/uL Sodium 134 L (137-145) mmol/L Potassium 4.5 (3.5-5.1) mmol/L Chloride 106 (98-107) mmol/L Carbon Dioxide 27 (22-30) mmol/L Anion Gap 1 mmol/L BUN 13 (7-17) mg/dL Creatinine 0.73 (0.52-1.04) mg/dL Est GFR (CKD-EPI)AfAm >90 (>60 ml/min/1.73 sqM) Est GFR (CKD-EPI)NonAf 82 (>60 ml/min/1.73 sqM) Glucose 109 H (74-99) mg/dL Calcium 9.0 (8.4-10.2) mg/dL Magnesium 1.9 (1.6-2.3) mg/dL Total Bilirubin 0.7 (0.2-1.3) mg/dL AST 27 (14-36) U/L ALT 20 (4-34) U/L Alkaline Phosphatase 73 (38-126) U/L Total Protein 6.2 L (6.3-8.2) g/dL Albumin 3.9 (3.5-5.0) g/dL Influenza Type A (PCR) Not Detected (Not Detectd) Influenza Type B (PCR) Not Detected (Not Detectd) RSV (PCR) Not Detected (Not Detectd) SARS-CoV-2 (PCR) Not Detected (Not Detectd) - EKG Data -: EKG Interpreted by Me EKG Comments: 12-lead Electrocardiogram Interpretation Note EKG was reviewed and interpreted by myself. 12-lead ECG performed at 1704 is interpreted by me as revealing normal sinus rhythm at a rate of 96 beats per minute. [place] is normal. CT interval is 159 ms, QRS durations 85 ms, QTc is 395 ms.. There were no ST or T wave abnormalities to suggest myocardial ischemia or injury. R wave progression across the precordium was satisfactory. By my interpretation this EKG is non-diagnostic for acute ischemia. Disposition Clinical Impression: COPD (chronic obstructive pulmonary disease), Tracheobronchitis Disposition: HOME SELF-CARE Condition: Good Instructions (If sedation given, give patient instructions): Acute Bronchitis (ED), COPD (Chronic Obstructive Pulmonary Disease) (ED) Additional Instructions: Follow-up with your PCP and pulmonology. You likely have COPD exacerbation with acute tracheobronchitis. Continue to use your home breathing treatments/inhalers as well as take 5 days of prednisone and continue with the antibiotic. Prescriptions: Sulfamethox-Tmp 800-160Mg [Bactrim DS 800-160 mg] 1 tab PO Q12HR 7 Days #14 tab predniSONE [Deltasone] 40 mg PO DAILY 5 Days #10 tab Is patient prescribed a controlled substance at d/c from ED?: No Referrals: Jluis Mohan DO [Primary Care Provider] - 1-2 days Time of Disposition: 18:16
[2024-04-15 17:20] LABS: Basophils % (A) 0 %; Eosinophils % (A) 0 %; HCT 42.3 % (34.0-46.0); HGB 13.4 gm/dL (11.4-16.0); Lymphocytes # (A) 0.4 k/uL (1.0-4.8); Lymphocytes % (A) 7 %; MCH 30.8 pg (25.0-35.0); MCHC 31.6 g/dL (31.0-37.0); MCV 97.5 fL (80.0-100.0); Mean Platelet Volume 6.8; Monocytes # (A) 0.5 k/uL (0-1.0); Monocytes % (A) 8 %; Neutrophils % (A) 83 %; Platelet Count 220 k/uL (150-450); RBC 4.34 m/uL (3.80-5.40); RDW 14.3 % (11.5-15.5)
[2024-04-15] MEDS: SODIUM CHLORIDE 0.9% 500 ML 500 ML IV STA (17:24)
[2024-04-15] MEDS: methylPREDNISolone SOD SUCCI 125 MG/2 ML VIAL IV STA (17:25)
[2024-04-15 17:31] LABS: ALT 20 U/L (4-34); AST 27 U/L (14-36); African American GFR (CKD) >90 (>60 ml/min/1.73 sqM); Albumin 3.9 g/dL (3.5-5.0); Alkaline Phosphatase 73 U/L (38-126); Anion Gap 1 mmol/L; Blood Urea Nitrogen 13 mg/dL (7-17); Carbon Dioxide 27 mmol/L (22-30); Chloride 106 mmol/L (98-107); Glucose 109 mg/dL (74-99); Magnesium 1.9 mg/dL (1.6-2.3); Non-African American GFR(CKD) 82 (>60 ml/min/1.73 sqM); Potassium 4.5 mmol/L (3.5-5.1); Sodium 134 mmol/L (137-145); Total Bilirubin 0.7 mg/dL (0.2-1.3); Total Protein 6.2 g/dL (6.3-8.2)
--- NOTE | 2024-04-15 17:51 | XR ---
EXAMINATION TYPE: XR chest 2V DATE OF EXAM: 04/15/2024 5:35 PM COMPARISON: Chest radiographs from 01/27/2024 CLINICAL INDICATION: Female, 73 years old with history of cough; TECHNIQUE: XR chest 2V Frontal and lateral views of the chest. FINDINGS: Lungs/Pleura: Prominent interstitial lung markings are seen scattered throughout the lungs. No eviden ce of focal consolidation, pneumothorax or pleural effusion. Flattening of the diaphragms. Pulmonary vascularity: Unremarkable. Heart/mediastinum: Cardiomediastinal silhouette is unremarkable. Musculoskeletal: No acute osseous pathology. Right midlung surgical clips. IMPRESSION: 1. No acute cardiopulmonary disease process. 2. COPD changes. [facility], , 04/15/2024 5:49 PM
[2024-04-15] MEDS: IPRATROPIUM-ALBUTEROL 3 ML NEB INHALATION STA (18:00)
[2024-04-15] MEDS: SULFAMETHOX-TMP 800-160MG 1 EACH TAB PO STA (18:29)
[2024-04-15 18:41] VITALS: BP 186/94; PULSE 89; RESP 16; TEMP 98
== END 2024-04-15 19:03 | disposition home or self-care (01) ==
LOC: EC 16:07
DX: J44.9 Chronic obstructive pulmonary disease, unspecified (principal); J40 Bronchitis, not specified as acute or chronic; Z87.891 Personal history of nicotine dependence; Z88.8 Allergy status to other drugs, medicaments and biological substances
CPT/HCPCS: 36415; 93005; 80053; 83735; 85025; 87636; 71046; 99285; 96374; 96361; J2919

== ENCOUNTER 2024-07-27 20:20 | Inpatient (IN) | payer MEDICARE ==
[2024-07-27 20:33] LABS: Glucose,Whole Blood 96 mg/dL (70-110)
[2024-07-27] MEDS: SODIUM CHLORIDE 0.9% 1,000 ML IV ONE (20:40)
[2024-07-27 20:46] LABS: Basophils % (A) 0 %; Eosinophils # (A) 0.1 k/uL (0-0.7); Eosinophils % (A) 1 %; HCT 44.3 % (34.0-46.0); HGB 14.1 gm/dL (11.4-16.0); Lymphocytes # (A) 0.6 k/uL (1.0-4.8); Lymphocytes % (A) 6 %; MCH 30.1 pg (25.0-35.0); MCHC 31.9 g/dL (31.0-37.0); MCV 94.3 fL (80.0-100.0); Mean Platelet Volume 6.9; Monocytes # (A) 0.8 k/uL (0-1.0); Monocytes % (A) 9 %; Neutrophils # (A) 7.5 k/uL (1.3-7.7); Neutrophils % (A) 82 %; Platelet Count 247 k/uL (150-450); RDW 14.1 % (11.5-15.5); WBC 9.1 k/uL (3.8-10.6)
[2024-07-27 20:58] LABS: ALT 22 U/L (4-34); AST 34 U/L (14-36); African American GFR (CKD) >90 (>60 ml/min/1.73 sqM); Albumin 3.6 g/dL (3.5-5.0); Alkaline Phosphatase 160 U/L (38-126); Anion Gap 8 mmol/L; Blood Urea Nitrogen 20 mg/dL (7-17); Calcium 9.4 mg/dL (8.4-10.2); Carbon Dioxide 26 mmol/L (22-30); Chloride 98 mmol/L (98-107); Creatine Kinase 458 U/L (30-135); Glucose 93 mg/dL (74-99); Non-African American GFR(CKD) 79 (>60 ml/min/1.73 sqM); Potassium 4.2 mmol/L (3.5-5.1); Sodium 132 mmol/L (137-145); Total Bilirubin 1.5 mg/dL (0.2-1.3); Total Protein 6.1 g/dL (6.3-8.2)
[2024-07-27 21:03] LABS: INR 1.1 (<1.2); Prothrombin Time 11.9 sec (10.0-12.5)
[2024-07-27 21:04] LABS: Partial Thromboplastin Time 20.5 sec (22.0-30.0)
[2024-07-27] MEDS: ACETAMINOPHEN TAB 325 MG TAB PO STA (21:12)
--- NOTE | 2024-07-27 21:34 | CT ---
EXAMINATION TYPE: CT brain [place] wo con DATE OF EXAM: 07/27/2024 9:00 PM COMPARISON: 02/04/2023 CLINICAL INDICATION: Female, 74 years old with history of Trauma, Patient presents to by EMS with r/o trip and fall. Patient was trying to get in bed earlier this morning, tripped on the bedsheet and fell on her left hip. Patient denies LOC and BT., pain TECHNIQUE: CT of the brain is performed utilizing 3 mm thick sections through the posterior fossa and 3 mm thick sections through the remaining calvarium. Study is performed within 24 hours of arrival to the hospital. Contrast used: mL of , (none if empty) CT DLP: 1370.4 mGycm, Automated exposure control for dose reduction was used. FINDINGS: No abnormal hyperdensity is present to suggest an acute intracranial hemorrhage. No mass lesion is evident. No acute infarcts are evident. Periventricular white matter hypodensity is present, likely on the ba sis of chronic white matter ischemic changes. This appears confluent. Findings are stable from compar nate Ventricles and sulci are . Prominent for the patient age. Paranasal sinuses and mastoid air cells within the [id number] are clear. IMPRESSIONS: 1. No acute intracranial process. Follow-up MRI can be performed as clinically indicated. 2. Chronic appearing confluent periventricular white matter ischemic changes with atrophy. CT cervical spine. COMPARISON: None TECHNIQUE: CT of the cervical spine is performed in the axial plane at 2 mm thick sections. Reconstr ucted images in the coronal, and sagittal plane are reviewed on the computer. FINDINGS: No acute fractures are evident. Vertebral body alignment is normal. Disc space narrowing is present throughout the cervical spine and is Greatest C5-6. Vertebral body heights are preserved. No spinal canal stenosis is evident. Uncovertebral joint hypertrophy is present contributing to multilevel foraminal stenosis. IMPRESSION: 1. No acute osseous abnormality cervical spine. 2. Degenerative disc changes foraminal stenosis. [facility], , 07/27/2024 9:32 PM
--- NOTE | 2024-07-27 21:35 | XR ---
EXAMINATION TYPE: XR Hip Complete RT DATE OF EXAM: 07/27/2024 9:09 PM COMPARISON: None. CLINICAL INDICATION: Female, 74 years old with history of bilateral hip pain, pain TECHNIQUE: 2 view(s) obtained. FINDINGS: Femoral head articulates with the acetabulum. Joint space narrowing is present. No acute fracture or dislocation evident. IMPRESSION: 1. Degenerative changes right hip. 2. No acute osseous abnormality radiographically apparent. [facility], , 07/27/2024 9:33 PM
--- NOTE | 2024-07-27 21:41 | CT ---
EXAMINATION TYPE: CT ChestAbdPelvis wo con DATE OF EXAM: 07/27/2024 9:00 PM COMPARISON: None. CLINICAL INDICATION: Female, 74 years old with history of fall, left back pain, Patient presents to E by EMS with r/o trip and fall. Patient was trying to get in bed earlier this morning, tripped on th e bedsheet and fell on her left hip. Patient denies LOC and BT. TECHNIQUE: CT ChestAbdPelvis wo con , with sagittal coronal reformats. If MIP/3-D images were created , there are created on a separate workstation. Contrast used: mL of , (none if empty) Oral contrast used: (none if empty) CT DLP: 527.9 mGycm, Automated exposure control for dose reduction was used. FINDINGS: CT CHEST: Portion of the thyroid visualized is normal. No suspicious lung nodules or focal infiltrates are present. No pneumothorax is evident. No enlarged mediastinal or hilar adenopathy is evident. The ascending aorta diameter at the level of the main pulmonary artery is 3.8 cm. The main pulmonary artery diameter at the bifurcation is 2.8 cm. Coronary artery calcifications present. CT ABDOMEN: Liver: There is a cyst within the left lobe liver. Spleen: Normal Pancreas: Normal Adrenal glands: The adrenal glands are normal. Gallbladder: Normal Kidneys: No masses are evident. No hydronephrosis is present. There is a cyst on the lateral left k idney measuring 3.5 cm. No renal stones are evident. Aorta: Vascular calcification is within the aorta. Inferior vena cava: Normal. CT PELVIS: Loops of bowel within the abdomen and pelvis are normal. This study is without oral contrast limi ts bowel evaluation. Appendix: Not identified. No dilated tubular structure or inflammatory changes evident. Urinary bladder: Normal. Genitourinary structures: Uterus is normal. Adnexa are unremarkable. Osseous structures: No suspicious lytic or sclerotic lesions. No acute fractures are evident. Bilater al hips appear intact. Degenerative joint changes at the bilateral hips. There are some degenerative changes at sacroiliac joints. Ribs appear intact. IMPRESSION: 1. No acute posttraumatic change is identified. [facility], , 07/27/2024 9:39 PM
--- NOTE | 2024-07-27 21:42 | XR ---
EXAMINATION TYPE: XR femur LT DATE OF EXAM: 07/27/2024 9:09 PM COMPARISON: None. CLINICAL INDICATION: Female, 74 years old with history of left thigh pain fall, pain TECHNIQUE: 2 view(s) obtained. FINDINGS: Left femoral head articulates with the acetabulum. Joint space is preserved. No acute fracture or dis location is evident. Femur appears intact. Joint spaces are preserved. No acute fracture or dislocati on evident. Follow up exams can be performed 7-10 days from acute trauma for continued pain. IMPRESSION: 1. No acute osseous abnormality left femur [facility], , 07/27/2024 9:40 PM
--- NOTE | 2024-07-27 22:46 | ED ---
General Adult HPI - General Chief complaint: Fall Stated complaint: Fall Time Seen by Provider: 07/27/24 20:23 Source: patient, EMS Mode of arrival: EMS Limitations: no limitations - History of Present Illness Initial comments: Patient is a pleasant 74 y/o female PMH COPD, HLD presenting today for fall at home today. Pt was getting out of bed this morning and got twisted in her sheets, causing her to fall into her left side. Was unable to stand afterwards or reach her phone so spend the day on the floor until a wellness check was done and pt was found on the floor of her home. She thinks she may have hit the left side of her face but otherwise denies head or neck trauma. Denies LOC. Currently denies numbness or weakness of her extremities, MAI, dizziness, chest pain or abdominal pain. Endorses left hip and left sided back pain. Is not on thinners. - Related Data Home Medications Medication Instructions Recorded Confirmed Bimatoprost [[place] 0.01% Ophth 1 drop BOTH EYES HS 10/13/17 07/28/24 Soln] Atorvastatin [Lipitor] 10 mg PO W/SUPPER 03/19/21 07/28/24 Ipratropium-Albuterol Nebulize 3 ml INHALATION RT-QID PRN 06/25/23 07/28/24 [Duoneb 0.5 mg-3 mg/3 ml Soln] Budesonide [Pulmicort] 1 mg INHALATION RT-DAILY 11/22/23 07/28/24 Pantoprazole [Protonix] 40 mg PO DAILY 07/21/24 07/28/24 guaiFENesin [Mucinex] 600 mg PO BID 07/21/24 07/28/24 HYDROcodone/APAP 5-325MG [[place] 1 tab PO Q8H PRN 07/28/24 07/28/24 5-325] Mometasone/Formoterol [Dulera 200 2 puff INHALATION RT-BID 07/28/24 07/28/24 Mcg-5 Mcg Inhaler] predniSONE 5 mg PO Q2D 07/28/24 07/28/24 predniSONE 10 mg PO Q2D 07/28/24 07/28/24 Allergies Allergy/AdvReac Type Severity Reaction Status Date / Time budesonide [From Symbicort] AdvReac ANXIETY Verified 07/28/24 07:06 formoterol [From Symbicort] AdvReac ANXIETY Verified 07/28/24 07:06 zolpidem [From Ambien] AdvReac Hallucinati Verified 07/28/24 07:06 ons Review of Systems ROS Statement: Those systems with pertinent positive or pertinent negative responses have been documented in the HPI. ROS Other: All systems not noted in ROS Statement are negative. 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 Righ t breast cancer 2022 History of Any Multi-Drug Resistant Organisms: None Reported Past Surgical History: Breast Surgery, Hernia Repair, Orthopedic Surgery Additional Past Surgical History / Comment(s): Bilateral carpal tunnel; bilateral cataract removal with lens, bronchoscopy, R inguinal hernia repair, colonoscopy RT BREAST BIOSPY, cancer and the node had chemo and radiation july 2023, colonoscopy Past Anesthesia/Blood Transfusion Reactions: No Reported Reaction Additional Past Anesthesia/Blood Transfusion Reaction / Comment(s): no blood transfusion Past Psychological History: No Psychological Hx Reported Smoking Status: Former smoker Past Alcohol Use History: None Reported Past Drug Use History: None Reported - Past Family History Father Family Medical History: COPD Additional Family Medical History / Comment(s): Father in his 50s of COPD. He was a smoker. Mother Family Medical History: CVA/TIA, Hypertension, Pneumonia Additional Family Medical History / Comment(s): Mother fell at age 85 and fractured her hip. Post op she became HTN and had a stroke and then ended up with pneumonia and . Sister(s) Family Medical History: Cancer Additional Family Medical History / Comment(s): breast General Exam - General Exam Comments Initial Comments: PE: CONSTITUTIONAL: No apparent distress, well appearing SKIN: Warm, dry, no jaundice, hives or petechiae EYES: Pupils are equally round, extraocular movements intact without nystagmus, clear conjunctiva, non-icteric sclera HENT: Normocephalic, atraumatic, dry mucus membranes, oropharynx clear without exudates NECK: , C-collar in place, no signs of injury, no midline spinal tenderness to palpation PULMONARY: Clear to auscultation without wheezes, rhonchi, or rales, normal excursion, no accessory muscle use and no stridor CARDIOVASCULAR: Regular rate, rhythm, normal S1 and S2. No appreciated murmurs, rubs or gallops. Strong radial and dorsalis pedis pulses with intact distal perfusion. No lower extremity edema GASTROINTESTINAL: Soft, active bowel sounds throughout, non-tender, non- distended, no palpable masses, no rebound or guarding. No hepatosplenomegaly MUSCULOSKELETAL: Extremities have no gross deformity, no edema, redness, or swelling. Left thigh is tender to palpation without swelling, bruising, or deformity, mild right and left lateral hip TTP, mild pain in left hip with left hip flexion, otherwise able to move all 4 extremities through full ROM with excellent strength NEUROLOGIC:_a/o x 3, GCS 15, normal mentation and speech. Moves all extremities x 4 without motor or sensory deficit, as above PSYCHIATRIC:_normal mood and affect, thought process is clear and linear Limitations: no limitations Course Vital Signs 07/27/24 07/27/24 07/28/24 20:30 23:01 02:10 Temperature 98.1 F 98.9 F Pulse Rate 116 H 116 H 104 H Respiratory 16 17 17 Rate Blood Pressure 167/85 171/83 155/78 O2 Sat by Pulse 91 L 90 L 96 Oximetry 07/28/24 07/28/24 07/28/24 02:20 03:06 06:00 Temperature Pulse Rate 92 103 H 94 Respiratory 17 18 18 Rate Blood Pressure 147/94 169/84 O2 Sat by Pulse 96 98 97 Oximetry 07/28/24 07/28/24 07/28/24 07:21 08:02 08:11 Temperature 98.4 F Pulse Rate 89 94 90 Respiratory 18 Rate Blood Pressure 157/85 O2 Sat by Pulse 96 Oximetry 07/28/24 07/28/24 07/28/24 08:15 10:35 11:18 Temperature Pulse Rate 104 H 98 96 Respiratory 22 20 Rate Blood Pressure 155/61 160/72 O2 Sat by Pulse 96 97 Oximetry 07/28/24 11:28 Temperature Pulse Rate 100 Respiratory Rate Blood Pressure O2 Sat by Pulse Oximetry EKG Findings - EKG Comments: EKG Findings:: Sinus tachycardia, rate 112 bpm intervals within acceptable limits, normal axis, no ST elevations or depressions, no STEMI, no arrhythmias Medical Decision Making - Medical Decision Making Was pt. sent in by a medical professional or institution (, PA, FOOD TRAY ASSEMBLER, urgent care, hospital, or long term...) When possible be specific @ -No Did you speak to anyone other than the patient for history (EMS, parent, family, police, friend...)? What history was obtained from this source EMS was found on the ground during wellness check, awake and alert Did you review nursing and triage notes (agree or disagree)? Why? @ -I reviewed nursing and triage notes Were old charts reviewed (outside hosp., previous admission, EMS record, old EKG, old radiological studies, urgent care reports/EKG's, long term records)? Report findings @ -Medical records reviewed patient last visited the emergency room on 04/15/2024 for shortness of breath, at that time was noted to wear 2 L oxygen nasal cannula chronically, chest x-ray at that site showed no acute cardiopulmonary process Differential Diagnosis (chest pain, altered mental status, abdominal pain women, abdominal pain men, vaginal bleeding, weakness, fever, dyspnea, syncope, headache, dizziness, GI bleed, back pain, seizure, CVA, palpatations, mental health, musculoskeletal)? Differential diagnosis remains broad over top considerations include hip contusion, femur fracture, hip fracture, pelvis fracture, lumbar spine fracture, sprain, bursitis, strain, rhabdomyolysis, is not inclusive list EKG interpreted by me (3pts min.). @ -As above X-rays interpreted by me (1pt min.). @Personally reviewed XR femur, hips, I see no signs of fracture or dislocation on review of these films agree with radiologist intrepretation CT interpreted by me (1pt min.). @Reviewed CT brain, I see no evidence of hemorrhage, mass effect or skull fracture, personally viewed C-spine I see no evidence of fracture or malalignment, I personally reviewed CT chest abdomen pelvis there is a new L1 compression fracture, no other acute process noted, agree with radiologist interpretation U/S interpreted by me (1pt. min.). @ -None done What testing was considered but not performed or refused? (CT, X-rays, U/S, labs)? Why? @ -None What meds were considered but not given or refused? Why? @ -None Did you discuss the management of the patient with other professionals (professionals i.e. , PA, FOOD TRAY ASSEMBLER, lab, RT, psych nurse, social work associate, computer operations manager, teacher, correction officer city or county jail, case finishing machine adjuster)? Give summary @ -No Was smoking cessation discussed for >3mins.? @ -No Was critical care preformed (if so, how long)? @ -No Were there social determinants of health that impacted care today? How? (Homelessness, low income, unemployed, alcoholism, drug addiction, transportation, low edu. Level, literacy, decrease access to med. care, prison, rehab)? @ -No Was there de-escalation of care discussed even if they declined (Discuss DNR or withdrawal of care, Hospice)? @ -No What co-morbidities impacted this encounter? (DM, HTN, Smoking, COPD, CAD, Cancer, CVA, ARF, Chemo, Hep., AIDS, mental health diagnosis, sleep apnea, morbid obesity)? COPD Was patient admitted / discharged? Hospital course, mention meds given and route, prescriptions, significant lab abnormalities, going to OR and other pertinent info. @ -Admission-This is a pleasant 74-year-old female history of COPD presenting today for mechanical trip and fall that resulted in her having left hip pain and being unable to ambulate to get to her phone. She was on the floor for the entirety of the day today. On my assessment patient is a c-collar in place is nontoxic and overall well-appearing. She does have exquisitely dry mucous membranes, tenderness to palpation of the left lumbar spine, slight tenderness to palp of the hips bilaterally without any deformity, mild tenderness of the left thigh without gross deformity, bruising,or other signs of injury. She does have some pain with left hip flexion but otherwise able to move all 4 ext remities. No signs of head trauma. Given patient's age will obtain CT brain and C-spine, additionally she does have tenderness to palpation along left side of the back, will obtain CT chest abdomen pelvis to evaluate for blunt traumatic injury, as well as pelvis x-rays and left femur x-ray. Patient's pain will be treated Tylenol, she will given IV fluids and basic labs will be obtained as well to evaluate for rhabdomyolysis given excessive downtime. Labs notable for troponin 0.028, this is within normal limits, CK 458, GFR 79, creatinine 0.75, patient received IV fluids, 1 L will be continued on maintenance fluids due to elevated CK, due to difficulty ambulating secondary to pain, new L1 fracture and elevated CPK patient admitted to the hospital. I updated patient to findings and plan of care she is agreeable with plan. Patient admitted to [facility] in stable condition. Undiagnosed new problem with uncertain prognosis? @ -No Drug Therapy requiring intensive monitoring for toxicity (Heparin, Nitro, Insulin, Cardizem)? @ -No Were any procedures done? @ -No Diagnosis/symptom? @ Fall, L1 Compression fracture, rhabdomyolysis Acute, or Chronic, or Acute on Chronic? @acute Uncomplicated (without systemic symptoms) or Complicated (systemic symptoms)? @complicated Side effects of treatment? @ -No Exacerbation, Progression, or Severe Exacerbation? @ -No Poses a threat to life or bodily function? How? (Chest pain, [place], [place], pneumonia, PE, COPD, DKA, ARF, appy, cholecystitis, CVA, Diverticulitis, Homicidal, Suicidal, threat to staff... and all critical care pts) @ -Yes, rhabdomyolysis, if lefft untreated could lead to renal failure and - Lab Data Result diagrams: 07/27/24 20:38 07/28/24 06:55 Lab Results 07/27/24 07/27/24 07/27/24 Range/Units 20:32 20:38 20:38 WBC 9.1 (3.8-10.6) k/uL RBC 4.70 (3.80-5.40) m/uL Hgb 14.1 (11.4-16.0) gm/dL Hct 44.3 (34.0-46.0) % MCV 94.3 (80.0-100.0) fL MCH 30.1 (25.0-35.0) pg MCHC 31.9 (31.0-37.0) g/dL RDW 14.1 (11.5-15.5) % Plt Count 247 (150-450) k/uL MPV 6.9 Neutrophils % 82 % Lymphocytes % 6 % Monocytes % 9 % Eosinophils % 1 % Basophils % 0 % Neutrophils # 7.5 (1.3-7.7) k/uL Lymphocytes # 0.6 L (1.0-4.8) k/uL Monocytes # 0.8 (0-1.0) k/uL Eosinophils # 0.1 (0-0.7) k/uL Basophils # 0.0 (0-0.2) k/uL PT 11.9 (10.0-12.5) sec INR 1.1 (<1.2) APTT 20.5 L (22.0-30.0) sec Sodium (137-145) mmol/L Potassium (3.5-5.1) mmol/L Chloride (98-107) mmol/L Carbon Dioxide (22-30) mmol/L Anion Gap mmol/L BUN (7-17) mg/dL Creatinine (0.52-1.04) mg/dL Est GFR (CKD-EPI)AfAm (>60 ml/min/1.73 sqM) Est GFR (CKD-EPI)NonAf (>60 ml/min/1.73 sqM) Glucose (74-99) mg/dL POC Glucose (mg/dL) 96 (70-110) mg/dL POC Glu Palm Gatherer ID [facility] Plasma Lactic Acid Jer (0.7-2.0) mmol/L Calcium (8.4-10.2) mg/dL Total Bilirubin (0.2-1.3) mg/dL AST (14-36) U/L ALT (4-34) U/L Alkaline Phosphatase (38-126) U/L Creatine Kinase (30-135) U/L Troponin I (0.000-0.034) ng/mL Total Protein (6.3-8.2) g/dL Albumin (3.5-5.0) g/dL 07/27/24 07/27/24 07/27/24 Range/Units 20:38 20:38 20:38 WBC (3.8-10.6) k/uL RBC (3.80-5.40) m/uL Hgb (11.4-16.0) gm/dL Hct (34.0-46.0) % MCV (80.0-100.0) fL MCH (25.0-35.0) pg MCHC (31.0-37.0) g/dL RDW (11.5-15.5) % Plt Count (150-450) k/uL MPV Neutrophils % % Lymphocytes % % Monocytes % % Eosinophils % % Basophils % % Neutrophils # (1.3-7.7) k/uL Lymphocytes # (1.0-4.8) k/uL Monocytes # (0-1.0) k/uL Eosinophils # (0-0.7) k/uL Basophils # (0-0.2) k/uL PT (10.0-12.5) sec INR (<1.2) APTT (22.0-30.0) sec Sodium 132 L (137-145) mmol/L Potassium 4.2 (3.5-5.1) mmol/L Chloride 98 (98-107) mmol/L Carbon Dioxide 26 (22-30) mmol/L Anion Gap 8 mmol/L BUN 20 H (7-17) mg/dL Creatinine 0.75 (0.52-1.04) mg/dL Est GFR (CKD-EPI)AfAm >90 (>60 ml/min/1.73 sqM) Est GFR (CKD-EPI)NonAf 79 (>60 ml/min/1.73 sqM) Glucose 93 (74-99) mg/dL POC Glucose (mg/dL) (70-110) mg/dL POC Glu Palm Gatherer ID Plasma Lactic Acid Jer 1.6 (0.7-2.0) mmol/L Calcium 9.4 (8.4-10.2) mg/dL Total Bilirubin 1.5 H (0.2-1.3) mg/dL AST 34 (14-36) U/L ALT 22 (4-34) U/L Alkaline Phosphatase 160 H (38-126) U/L Creatine Kinase 458 H (30-135) U/L Troponin I 0.028 (0.000-0.034) ng/mL Total Protein 6.1 L (6.3-8.2) g/dL Albumin 3.6 (3.5-5.0) g/dL Disposition Clinical Impression: Compression fracture of L1 vertebra, Rhabdomyolysis, Fall Disposition: ADMITTED IP TO THIS HOSP Condition: Stable
[2024-07-27] MEDS: SODIUM CHLORIDE 0.9% 1,000 ML IV SCH (22:51)
[2024-07-27] MEDS: IBUPROFEN 400 MG TAB PO STA (22:55)
[2024-07-27] MEDS: LIDOCAINE 4% PATCH TOPICAL ONE (22:55)
[2024-07-27] MEDS: methocarbamoL 500 MG TAB PO STA (22:56)
[2024-07-27] MEDS ORDERED: MAG HYDROX/AL HYDROX/SIMETH 30 ML CUP PO PRN (23:15)
[2024-07-27] MEDS ORDERED: bisacodyL 5 MG TABLET.DR PO PRN (23:15)
[2024-07-27] MEDS ORDERED: ONDANSETRON 4 MG/2 ML VIAL IVP PRN (23:15)
[2024-07-27] MEDS ORDERED: NALOXONE 0.4 MG/ML 1 ML VIAL IV PRN (23:15)
[2024-07-27] MEDS ORDERED: CALCIUM CARBONATE 500 MG CHEWABLE PO PRN (23:15)
[2024-07-28] MEDS: SODIUM CHLORIDE 0.9% 500 ML 500 ML IV ONE (00:25)
[2024-07-28] MEDS: traMADol 50 MG TAB PO PRN (00:28)
[2024-07-28] MEDS: guaiFENesin 600 MG TABLET.ER PO SCH (00:28)
[2024-07-28 02:27] LABS: Appearance,Urine Clear (Clear); Bilirubin,Urine Negative (Negative); Blood,Urine Small (Negative); Color,Urine Light Yellow; Glucose,Urine (UA) Negative (Negative); Ketones,Urine 1+ (Negative); Leukocyte Esterase,Urine Negative (Negative); Mucus,Urine Rare /hpf; Nitrite,Urine Negative (Negative); PH, Urine 5.5 (5.0-8.0); Protein,Urine Negative (Negative); RBC,Urine 4 /hpf (0-5); Specific Gravity,Urine 1.018 (1.001-1.035); Squamous Epithelial Cell,Urine <1 /hpf (0-4); Urobilinogen,Urine <2.0 mg/dL (<2.0); WBC,Urine <1 /hpf (0-5)
[2024-07-28 07:37] LABS: African American GFR (CKD) >90 (>60 ml/min/1.73 sqM); Anion Gap 6 mmol/L; Blood Urea Nitrogen 15 mg/dL (7-17); Calcium 8.5 mg/dL (8.4-10.2); Carbon Dioxide 25 mmol/L (22-30); Chloride 103 mmol/L (98-107); Creatine Kinase 938 U/L (30-135); Glucose 72 mg/dL (74-99); Non-African American GFR(CKD) 86 (>60 ml/min/1.73 sqM); Potassium 3.9 mmol/L (3.5-5.1); Sodium 134 mmol/L (137-145)
[2024-07-28] MEDS ORDERED: NON FORMULARY DRUG (Tiotropium 18 Mcg/Puff 1 PUFF Each) INHALATION SCH (08:00)
[2024-07-28] MEDS: IPRATROPIUM-ALBUTEROL 3 ML NEB INHALATION SCH (08:02)
[2024-07-28] MEDS: ENOXAPARIN 40 MG/0.4 ML SYRINGE SQ SCH (08:12)
[2024-07-28] MEDS: FAMOTIDINE 20 MG TAB PO SCH (08:12)
[2024-07-28] MEDS: PANTOPRAZOLE 40 MG TABLET PO SCH (08:12)
[2024-07-28] MEDS: ACETAMINOPHEN TAB 325 MG TAB PO PRN (16:47)
[2024-07-29] MEDS ORDERED: HYDROcodone/APAP 10-325MG 1 EACH TAB PO PRN (11:41)
--- NOTE | 2024-07-29 11:51 | P.CNOR ---
History of Present Illness - HPI Consult date: 07/29/24 Consult reason: fracture, back pain History of present illness: Patient is a very pleasant 74-year-old female is companied by her son at bedside. Apparently the patient had a fall 2 days ago where she was getting up out of bed and her leg got twisted in the sheets and they slipped and she fell onto her back. She denies any loss of consciousness but she was unable to get up. She did not have her phone with her and was remained on the floor all day long. She was found eventually and was able to obtain help and brought to the hospital. She was admitted in regards to possibility of rhabdomyolysis. The pa maddie has history of COPD and uses oxygen at home. She denies any prior problems in her back. She denies any significant changes in her back in the past. She says that she has some aches and pains in her back in general but this is worsening pain than she normally has and it is at the center of her back. She denies any numbness tingling her lower extremities. She denies any weakness in her lower extremities. She denies any changes in bowel bladder function. She denies any chest pain. She has chronic shortness of breath and uses supplemental oxygen. Review of Systems As stated per HPI. Denies any changes bowel bladder function. She denies any new changes in her lower extremities. She uses supplemental oxygen for chronic COPD. She lives alone Past Medical History Past Medical History: Cancer, COPD, Eye Disorder, Hyperlipidemia Additional Past Medical History / Comment(s): bilateral eyes with increased intraocular pressure-not glaucoma yet, neuralgia R side forhead in past,daily steroid, FOOD GETS STUCK IN THROAT, BLOATING, wears oxygen 2lnc as needed. Right breast cancer 2022 History of Any Multi-Drug Resistant Organisms: None Reported Past Surgical History: Breast Surgery, Hernia Repair, Orthopedic Surgery Additional Past Surgical History / Comment(s): Bilateral carpal tunnel; bilateral cataract removal with lens, bronchoscopy, R inguinal hernia repair, colonoscopy RT BREAST BIOSPY, cancer and the node had chemo and radiation july 2023, colonoscopy Past Anesthesia/Blood Transfusion Reactions: No Reported Reaction Additional Past Anesthesia/Blood Transfusion Reaction / Comm: no blood transfusion Past Psychological History: No Psychological Hx Reported Additional Psychological History / Comment(s): Pt resides alone in a ground floor apartment with 7 steps to get in. She works at [employer]. She drives. She has a nebulizer. Smoking Status: Former smoker Past Alcohol Use History: None Reported Additional Past Alcohol Use History / Comment(s): Pt started smoking in 1978 and quit in 2009. Past Drug Use History: None Reported - Past Family History Father Family Medical History: COPD Additional Family Medical History / Comment(s): Father in his 50s of COPD. He was a smoker. Mother Family Medical History: CVA/TIA, Hypertension, Pneumonia Additional Family Medical History / Comment(s): Mother fell at age 85 and fractured her hip. Post op she became HTN and had a stroke and then ended up with pneumonia and . Sister(s) Family Medical History: Cancer Additional Family Medical History / Comment(s): breast Medications and Allergies Home Medications Medication Instructions Recorded Confirmed Type Bimatoprost [Lumigan 0.01% Ophth 1 drop BOTH EYES HS 10/13/17 07/28/24 History Soln] Atorvastatin [Lipitor] 10 mg PO W/SUPPER 03/19/21 07/28/24 History Ipratropium-Albuterol Nebulize 3 ml INHALATION RT-QID PRN 06/25/23 07/28/24 History [Duoneb 0.5 mg-3 mg/3 ml Soln] Budesonide [Pulmicort] 1 mg INHALATION RT-DAILY 11/22/23 07/28/24 History Pantoprazole [Protonix] 40 mg PO DAILY 07/21/24 07/28/24 History guaiFENesin [Mucinex] 600 mg PO BID 07/21/24 07/28/24 History HYDROcodone/APAP 5-325MG [[place] 1 tab PO Q8H PRN 07/28/24 07/28/24 History 5-325] Mometasone/Formoterol [Dulera 200 2 puff INHALATION RT-BID 07/28/24 07/28/24 History Mcg-5 Mcg Inhaler] predniSONE 5 mg PO Q2D 07/28/24 07/28/24 History predniSONE 10 mg PO Q2D 07/28/24 07/28/24 History Allergies Allergy/AdvReac Type Severity Reaction Status Date / Time budesonide [From Symbicort] AdvReac ANXIETY Verified 07/28/24 07:06 formoterol [From Symbicort] AdvReac ANXIETY Verified 07/28/24 07:06 zolpidem [From Ambien] AdvReac Hallucinati Verified 07/28/24 07:06 ons Physical Examination Osteopathic Statement: *. No significant issues noted on an osteopathic structural exam other than those noted in the History and Physical/Consult. - L Spine: dermatomal strength & reflexes bilateral Strength: hip flexion: 5/5 (At her low back she has tenderness to palpation at her upper lumbar spine and thoracolumbar junction. There is no open wounds lacerations or abrasions.) Strength: hip extension: 5/5 (Her lower extremities have sustained 5 out of 5 dorsiflexion plantarflexion EHL hip flexion and knee extension. No pain with internal extra rotation of her hips) Results - Labs Labs: Abnormal Lab Results - Last 24 Hours (Table) 07/29/24 Range/Units 10:19 Creatine Kinase 495 H (30-135) U/L H & H 07/27/24 Range/Units 20:38 Hgb 14.1 (11.4-16.0) gm/dL Hct 44.3 (34.0-46.0) % Coagulation 07/27/24 Range/Units 20:38 INR 1.1 (<1.2) Result Diagrams: 07/27/24 20:38 07/28/24 06:55 - Diagnostic results CT Scan - lumbar: report reviewed (I do see some bony sclerosis around the fracture lines but it is read as acute and a correlates well with her pain), image reviewed (CT through her spine shows a number of degenerative changes at her cervical and lumbar spine. There is evidence of a compression deformity at L1 with about 25% height loss. There is some bony retropulsion without any significant stenosis. There is some bony sclerosis around the area. It is read ) Assessment and Plan Assessment: Acute L1 compression deformity about 25% height loss without any neurologic deficit Status post fall at home, lives alone Prolonged time on the floor with rhabdomyolysis Chronic COPD and oxygen dependence Plan: Acute L1 compression deformity about 25% height loss without any neurologic deficit Status post fall at home, lives alone Prolonged time on the floor with rhabdomyolysis Chronic COPD and oxygen dependence The patient sustained a fall and has new lumbar pain. This correlates well with the findings of compression forming at L1. She has acute L1 compression fracture without any neurologic change. We discussed various treatment options for this ranging from conservative to surgical. I think we should try conservative treatment for her to see if she does well with bracing and immobilization. We will order an LSO brace and have her start to mobilize with the brace on. I discussed with her and her son the possibility of surgical intervention possibly with kyphoplasty. The patient has history of chronic COPD and is oxygen dependent. We discussed the risks of surgical intervention and strain on her heart and lungs and she would like to pursue conservative treatment for now. We will have physical therapy see her to start to mobilize her with the brace. We will get case management involved as she lives alone and may need placement posthospitalization if she is not safe with her mobility. Medicine is managing for her rhabdomyolysis and her COPD issues. We are try to control the pain more adequately for her. Will continue to follow closely with her
[2024-07-29] MEDS: HYDROmorphone 0.5 MG/0.5 ML SYRINGE IVP PRN (11:52)
[2024-07-29] MEDS: predniSONE 5 MG TAB PO SCH (12:05)
--- NOTE | 2024-07-29 16:10 | P.HPIM ---
History of Present Illness H&P Date: 07/28/24 Chief Complaint: Fall/back pain 74 y/o female PMH COPD, HLD presenting today for fall at home today. Pt was getting out of bed this morning and got twisted in her sheets, causing her to fall into her left side. Was unable to stand afterwards or reach her phone so spend the day on the floor until a wellness check was done and pt was found on the floor of her home. She thinks she may have hit the left side of her face but otherwise denies head or neck trauma. Denies LOC. Currently denies numbness or weakness of her extremities, MAI, dizziness, chest pain or abdominal pain. Endorses left hip and left sided back pain. Is not on thinners. Blood work completed in ED reveals a WBC of 9.1, hemoglobin of 14 mg and platelet count of 247, sodium 132, potassium 4.2, BUNs/creatinine of 20/0.75 UA is unremarkable X-rays femur, hips, no signs of fracture or dislocation on review of these films agree with radiologist intrepretation CT brain, no evidence of hemorrhage, mass effect or skull fracture CT C-spine no evidence of fracture or malalignment CT chest abdomen pelvis; there is a new L1 compression fracture Review of Systems REVIEW OF SYSTEMS: CONSTITUTIONAL: No fever, no malaise, no fatigue. HEENT: No recent visual problems or hearing problems. Denied any sore throat. CARDIOVASCULAR: No chest pain, orthopnea, PND, no palpitations, no syncope. PULMONARY: No shortness of breath, no cough, no hemoptysis. GASTROINTESTINAL: No diarrhea, no nausea, no vomiting, no abdominal pain. NEUROLOGICAL: No headaches, no weakness, no numbness. HEMATOLOGICAL: Denies any bleeding or petechiae. GENITOURINARY: Denies any burning micturition, frequency, or urgency. MUSCULOSKELETAL/RHEUMATOLOGICAL: Denies any joint pain, swelling, or any muscle pain. ENDOCRINE: Denies any polyuria or polydipsia. The rest of the 14-point review of systems is negative. 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 Rig ht breast cancer 2022 History of Any Multi-Drug Resistant Organisms: None Reported Past Surgical History: Breast Surgery, Hernia Repair, Orthopedic Surgery Additional Past Surgical History / Comment(s): Bilateral carpal tunnel; bilateral cataract removal with lens, bronchoscopy, R inguinal hernia repair, colonoscopy RT BREAST BIOSPY, cancer and the node had chemo and radiation july 2023, colonoscopy Past Anesthesia/Blood Transfusion Reactions: No Reported Reaction Additional Past Anesthesia/Blood Transfusion Reaction / Comment(s): no blood transfusion Past Psychological History: No Psychological Hx Reported Smoking Status: Former smoker Past Alcohol Use History: None Reported Past Drug Use History: None Reported - Past Family History Father Family Medical History: COPD Additional Family Medical History / Comment(s): Father in his 50s of COPD. He was a smoker. Mother Family Medical History: CVA/TIA, Hypertension, Pneumonia Additional Family Medical History / Comment(s): Mother fell at age 85 and fractured her hip. Post op she became HTN and had a stroke and then ended up with pneumonia and . Sister(s) Family Medical History: Cancer Additional Family Medical History / Comment(s): breast Medications and Allergies Home Medications Medication Instructions Recorded Confirmed Type Bimatoprost [Lumigan 0.01% Ophth 1 drop BOTH EYES HS 10/13/17 07/28/24 History Soln] Atorvastatin [Lipitor] 10 mg PO W/SUPPER 03/19/21 07/28/24 History Ipratropium-Albuterol Nebulize 3 ml INHALATION RT-QID PRN 06/25/23 07/28/24 History [Duoneb 0.5 mg-3 mg/3 ml Soln] Budesonide [Pulmicort] 1 mg INHALATION RT-DAILY 11/22/23 07/28/24 History Pantoprazole [Protonix] 40 mg PO DAILY 07/21/24 07/28/24 History guaiFENesin [Mucinex] 600 mg PO BID 07/21/24 07/28/24 History HYDROcodone/APAP 5-325MG [[place] 1 tab PO Q8H PRN 07/28/24 07/28/24 History 5-325] Mometasone/Formoterol [Dulera 200 2 puff INHALATION RT-BID 07/28/24 07/28/24 History Mcg-5 Mcg Inhaler] predniSONE 5 mg PO Q2D 07/28/24 07/28/24 History predniSONE 10 mg PO Q2D 07/28/24 07/28/24 History Allergies Allergy/AdvReac Type Severity Reaction Status Date / Time budesonide [From Symbicort] AdvReac ANXIETY Verified 07/28/24 07:06 formoterol [From Symbicort] AdvReac ANXIETY Verified 07/28/24 07:06 zolpidem [From Ambien] AdvReac Hallucinati Verified 07/28/24 07:06 ons Physical Exam Vitals: Vital Signs Temp Pulse Resp BP Pulse Ox 07/28/24 11:28 100 07/28/24 11:18 96 07/28/24 10:35 98 20 160/72 97 07/28/24 08:15 104 H 22 155/61 96 07/28/24 08:11 90 07/28/24 08:02 94 07/28/24 07:21 98.4 F 89 18 157/85 96 07/28/24 06:00 94 18 169/84 97 07/28/24 03:06 103 H 18 147/94 98 07/28/24 02:20 92 17 96 07/28/24 02:10 98.9 F 104 H 17 155/78 96 07/27/24 23:01 116 H 17 171/83 90 L 07/27/24 20:30 98.1 F 116 H 16 167/85 91 L Intake and Output 07/27/24 07/28/24 07/28/24 22:59 06:59 14:59 Output Total 1516 Balance -1516 Output: Urine 700 Straight 700 Post Void Residual 816 Other: Weight 64.864 kg SKIN: Warm, dry, no jaundice, hives or petechiae EYES: Pupils are equally round, extraocular movements intact without nystagmus, clear conjunctiva, non-icteric sclera HENT: Normocephalic, atraumatic, dry mucus membranes, oropharynx clear without exudates NECK: , C-collar in place, no signs of injury, no midline spinal tenderness to palpation PULMONARY: Clear to auscultation without wheezes, rhonchi, or rales, normal excursion, no accessory muscle use and no stridor CARDIOVASCULAR: Regular rate, rhythm, normal S1 and S2. No appreciated murmurs, rubs or gallops. Strong radial and dorsalis pedis pulses with intact distal perfusion. No lower extremity edema GASTROINTESTINAL: Soft, active bowel sounds throughout, non-tender, non- distended, no palpable masses, no rebound or guarding. No hepatosplenomegaly MUSCULOSKELETAL: Extremities have no gross deformity, no edema, redness, or swelling. Left thigh is tender to palpation without swelling, bruising, or deformity, mild right and left lateral hip TTP, mild pain in left hip with left hip flexion, otherwise able to move all 4 extremities through full ROM with excellent strength NEUROLOGIC:_a/o x 3, GCS 15, normal mentation and speech. Moves all extremities x 4 without motor or sensory deficit, as above PSYCHIATRIC:_normal mood and affect, thought process is clear and linear Results CBC & Chem 7: 07/27/24 20:38 07/28/24 06:55 Labs: Abnormal Lab Results - Last 24 Hours (Table) 07/27/24 07/27/24 07/27/24 Range/Units 20:38 20:38 20:38 Lymphocytes # 0.6 L (1.0-4.8) k/uL APTT 20.5 L (22.0-30.0) sec Sodium 132 L (137-145) mmol/L BUN 20 H (7-17) mg/dL Glucose (74-99) mg/dL Total Bilirubin 1.5 H (0.2-1.3) mg/dL Alkaline Phosphatase 160 H (38-126) U/L Creatine Kinase 458 H (30-135) U/L Total Protein 6.1 L (6.3-8.2) g/dL Urine Ketones (Negative) Urine Blood (Negative) Urine Mucus (None) /hpf 07/28/24 07/28/24 Range/Units 02:00 06:55 Lymphocytes # (1.0-4.8) k/uL APTT (22.0-30.0) sec Sodium 134 L (137-145) mmol/L BUN (7-17) mg/dL Glucose 72 L (74-99) mg/dL Total Bilirubin (0.2-1.3) mg/dL Alkaline Phosphatase (38-126) U/L Creatine Kinase 938 H (30-135) U/L Total Protein (6.3-8.2) g/dL Urine Ketones 1+ H (Negative) Urine Blood Small H (Negative) Urine Mucus Rare H (None) /hpf Assessment and Plan Assessment: 1. Mechanical fall; compression fracture of L1 vertebra -CT of the abdomen and pelvis completed reveals acute compression fracture of L1 vertebra -Patient has been placed on IV Dilaudid for pain control -We will consult orthopedic surgery for further evaluation 2. Rhabdomyolysis; patient has been placed on IV fluids in form of normal saline at rate of 75 cc an hour; we will monitor creatinine kinase level; further recommendations pending clinical course 3. Hyponatremia; mild; currently on normal saline at a rate of 75 cc an hour; will monitor electrolytes closely and make further recommendations 4. COPD; not in exacerbation; continue with home inhaler therapy 5. Hyperlipidemia; Lipitor 10 mg p.o. nightly 6. Gastroesophageal reflux disease; Protonix 40 mg daily DVT prophylaxis; SCDs/subcu Lovenox CODE STATUS; full code
[2024-07-29] MEDS: hydrALAZINE HCL 20 MG/ML 1 ML VIAL IVP STA (19:39)
[2024-07-29] MEDS: HYDROcodone/APAP 5-325MG 1 EACH TAB PO PRN (20:52)
[2024-07-29] MEDS: SYMBICORT 160-4.5 MCG INHALER INHALATION SCH (21:04)
[2024-07-29] MEDS: LATANOPROST 0.005% OPHTH DROPS 2.5 ML BTL BOTH EYES SCH (21:57)
[2024-07-30] MEDS ORDERED: BUDESONIDE 1 MG/2 ML NEBU INHALATION SCH (08:00)
[2024-07-30] MEDS: predniSONE 10 MG TAB PO SCH (08:41)
[2024-07-30 09:45] LABS: Basophils # (A) 0.02 X 10*3/uL (0.00-0.10); Basophils % (A) 0.4 %; Eosinophils # (A) 0.07 X 10*3/uL (0.04-0.35); Eosinophils % (A) 1.3 %; HCT 36.9 % (37.2-46.3); HGB 11.8 g/dL (12.0-15.0); Lymphocytes # (A) 0.43 X 10*3/uL (0.90-5.00); Lymphocytes % (A) 8.2 %; MCH 30.5 pg (27.0-32.0); MCV 95.3 FL (80.0-97.0); Mean Platelet Volume 9.8 FL (9.5-12.2); Monocytes # (A) 0.83 X 10*3/uL (0.20-1.00); Monocytes % (A) 15.9 %; NRBC Per 100 WBC 0 X 10*3/uL (0.00-0.01); Neutrophils # (A) 3.87 X 10*3/uL (1.80-7.70); Platelet Count 219 X 10*3/uL (140-440); RBC 3.87 X 10*6/uL (4.10-5.20); RDW 14.1 % (11.5-14.5); WBC 5.23 X 10*3/uL (4.50-10.00)
[2024-07-30 09:58] LABS: BUN/Creat Ratio 10.17 Ratio (12.00-20.00); Blood Urea Nitrogen 6.1 mg/dL (9.0-27.0); Chloride 98 mmol/L (96-109); Creatine Kinase 404 U/L (26-186); Glucose 67 mg/dL (70-110); Potassium 3.9 mmol/L (3.5-5.5); Sodium 137 mmol/L (135-145)
[2024-07-30 09:59] LABS: Calcium 8.7 mg/dL (8.7-10.3)
--- NOTE | 2024-07-30 15:10 | P.PN ---
Subjective Progress Note Date: 07/30/24 74 y/o female PMH COPD, HLD presenting today for fall at home today. Pt was getting out of bed this morning and got twisted in her sheets, causing her to fall into her left side. Was unable to stand afterwards or reach her phone so spend the day on the floor until a wellness check was done and pt was found on the floor of her home. She thinks she may have hit the left side of her face but otherwise denies head or neck trauma. Denies LOC. Currently denies numbness or weakness of her extremities, MAI, dizziness, chest pain or abdominal pain. Endorses left hip and left sided back pain. Is not on thinners. Blood work completed in ED reveals a WBC of 9.1, hemoglobin of 14 mg and platelet count of 247, sodium 132, potassium 4.2, BUNs/creatinine of 20/0.75 UA is unremarkable X-rays femur, hips, no signs of fracture or dislocation on review of these films agree with radiologist intrepretation CT brain, no evidence of hemorrhage, mass effect or skull fracture CT C-spine no evidence of fracture or malalignment CT chest abdomen pelvis; there is a new L1 compression fracture 07/30/2024 Patient is seen and evaluated in room at bedside; does have back brace on at this time; reports it helps getting out of bed Vital signs are reviewed and are stable Lab review shows WBC 5.2, hemoglobin 11.8 and platelet count of 219, sodium 137, potassium 3.9, BUNs/creatinine of 6.1/0.6, creatinine kinase is trending down and is at 404 this morning --Patient evaluated by orthopedic surgery and has opted for conservative treatment and has been provided with TLSO brace for new L1 compression fracture -Continue with IV fluid for rhabdo my doses and continue to trend CK periodically -Await PT/OT evaluation Objective - Vital Signs Vital signs: Vital Signs Temp 99.1 F 07/30/24 07:13 Pulse 86 07/30/24 08:57 Resp 17 07/30/24 07:13 BP 154/73 07/30/24 07:13 Pulse Ox 96 07/30/24 08:41 FiO2 Intake & Output 07/29/24 07/30/24 07/30/24 18:59 06:59 18:59 Output Total 620 500 Balance -620 -500 Output: Urine 620 500 Other: Voiding Method External Catheter External Catheter - Exam SKIN: Warm, dry, no jaundice, hives or petechiae EYES: Pupils are equally round, extraocular movements intact without nystagmus, clear conjunctiva, non-icteric sclera HENT: Normocephalic, atraumatic, dry mucus membranes, oropharynx clear without exudates NECK: , C-collar in place, no signs of injury, no midline spinal tenderness to palpation PULMONARY: Clear to auscultation without wheezes, rhonchi, or rales, normal excursion, no accessory muscle use and no stridor CARDIOVASCULAR: Regular rate, rhythm, normal S1 and S2. No appreciated murmurs, rubs or gallops. Strong radial and dorsalis pedis pulses with intact distal perfusion. No lower extremity edema GASTROINTESTINAL: Soft, active bowel sounds throughout, non-tender, non- distended, no palpable masses, no rebound or guarding. No hepatosplenomegaly MUSCULOSKELETAL: Extremities have no gross deformity, no edema, redness, or swelling. Left thigh is tender to palpation without swelling, bruising, or deformity, mild right and left lateral hip TTP, mild pain in left hip with left hip flexion, otherwise able to move all 4 extremities through full ROM with excellent strength NEUROLOGIC:_a/o x 3, GCS 15, normal mentation and speech. Moves all extremities x 4 without motor or sensory deficit, as above PSYCHIATRIC:_normal mood and affect, thought process is clear and linear - Labs CBC & Chem 7: 07/30/24 05:24 07/30/24 05:24 Labs: Abnormal Lab Results - Last 24 Hours (Table) 07/29/24 07/30/24 07/30/24 Range/Units 10:19 05:24 05:24 RBC 3.87 L (4.10-5.20) X 10*6/uL Hgb 11.8 L (12.0-15.0) g/dL Hct 36.9 L (37.2-46.3) % Lymphocytes # 0.43 L (0.90-5.00) X 10*3/uL Anion Gap 15.00 H (4.00-12.00) mmol/L BUN 6.1 L (9.0-27.0) mg/dL BUN/Creatinine Ratio 10.17 L (12.00-20.00) Ratio Glucose 67 L (70-110) mg/dL Creatine Kinase 495 H 404 H (30-135) U/L Assessment and Plan Assessment: 1. Mechanical fall; compression fracture of L1 vertebra -CT of the abdomen and pelvis completed reveals acute compression fracture of L1 vertebra -Patient has been placed on IV Dilaudid for pain control -We will consult orthopedic surgery for further evaluation 2. Rhabdomyolysis; patient has been placed on IV fluids in form of normal saline at rate of 75 cc an hour; we will monitor creatinine kinase level; [facility] er recommendations pending clinical course 3. Hyponatremia; mild; currently on normal saline at a rate of 75 cc an hour; will monitor electrolytes closely and make further recommendations 4. COPD; not in exacerbation; continue with home inhaler therapy 5. Hyperlipidemia; Lipitor 10 mg p.o. nightly 6. Gastroesophageal reflux disease; Protonix 40 mg daily DVT prophylaxis; SCDs/subcu Lovenox CODE STATUS; full code
[2024-07-30] MEDS: METOPROLOL TARTRATE 25 MG TAB PO SCH (23:39)
[2024-07-31] MEDS: QUEtiapine 25 MG TAB PO STA (04:37)
[2024-07-31] MEDS: HALOPERIDOL LACTATE 5 MG/ML 1 ML VIAL IM STA (05:34)
--- NOTE | 2024-07-31 08:48 | P.PN ---
Progress Note - Text Progress Note Date: 07/31/24 Orthopedic spine: History of present illness: Patient is a very pleasant 74-year-old female who is seen examined the bedside for follow-up evaluation for her known L1 compression fracture deformity status post fall. An LSO brace was delivered and fitted appropriately. Patient is currently lying in bed. Brace is not intact. Patient was able to sit at the bedside yesterday. Nurses aide and family are present at the bedside. Patient has had significant confusion and some agitation. She feels as though there are chickens at her bedside. When prompted in question, patient does answer questions appropriately. She states she does continue to have some back pain that has not changed. She is not complaining of lower extremity pain. Patient is admitted to medicine and is being treated for multiple medical diagnoses. Patient's pain is being controlled with oral and IV medications. Physical exam: Patient is awake and alert and is able to answer some questions for me appropriately and able to answer questions at the bedside Vital signs here stable Dorsiflexion, plantarflexion, and extensor hallucis longus positive sustained bilaterally Patient is able to perform some active range of motion bilateral lower ext remities independently while lying in bed No signs or symptoms of DVT; no calf pain Neurovascularly intact Assessment: Acute L1 compression fracture deformity status post fall Increased confusion and agitation overnight Rhabdomyolysis Hyponatremia COPD Hyperlipidemia Plan: 1. After reviewing of imaging, physical examination the patient, and further discussion with the patient, will currently planned to continue with conservative treatment at this time. A prescription was previously written, signed, and provided to child support case officer to obtain an LSO brace. This brace has been delivered and fitted appropriately Patient should wear this brace while sitting upright at greater than 45, during increase activities, during ambulation. Brace is not have to or while lying in bed or while bathing. From an orthopedic spine standpoint, patient is clear for discharge. Following discharge, patient may follow-up with Oscar Morillo PA-C or Dr. Estevan Strange at [facility]. 2. Patient will continue be seen examined by medicine for her multiple other medical diagnoses 3. Continue pain control with oral and IV medications as prescribed as needed for pain control
--- NOTE | 2024-07-31 10:06 | P.CRDCN ---
History of Present Illness Consult date: 07/31/24 Reason for Consult (text): New onset tachycardia [id number] History of present illness: This is a 74-year-old female patient of Dr. Miles with past medical history of COPD, hyperlipidemia, aortic valve insufficiency, breast cancer status postlum pectomy and chemotherapy and radiation therapy, chronic hypoxic respiratory failure on home O2. We have been asked to evaluate the patient for new onset of tachycardia 140 250 beats. Patient initially presented to the hospital on 07/27 after a fall getting out of bed when she was twisted in the sheets. She was unable to stand after the fall and spent the day on the floor until a wellness check found her. She has been seen by orthopedics for acute L1 compression deformity. Patient has been treated for rhabdomyolysis. Family member at bedside states that patient has had change in mental status over the past month and forgetting things. She apparently forgot to pay some bills and also is having trouble taking her medications. When patient had her last follow-up with her PCP, apparently she did not mention this. Patient was awake all day yesterday and during the night and was agitated pulled her IV. Patient noted to have SVT during the night which has resolved. Patient was started on Lopressor 25 mg twice daily last evening. Blood pressure 159/74, heart rate 102, pulse ox 91% on room air. -EKG: Sinus rhythm with no acute ST changes -CT of the head and neck revealed no acute intracranial process. Periventricular white matter ischemic changes with atrophy. No acute osseous abnormality in the cervical spine. Degenerative disc disease with foraminal stenosis. -CT of the chest abdomen and pelvis: Compression deformity L1. -Laboratory studies: WBC 5.2, hemoglobin 9.8. Potassium 3.9, BUN 6 and creatinine 0.6. CK is down to 404 and had peaked at 938. Troponin negative x 2. -Home cardiac medications: Atorvastatin 10 mg with supper. -Echocardiogram performed 01/11/2023 revealed normal EF, mild TR, mild MR, mild to moderate AR. -Lexiscan stress test performed 2016 was normal EF and normal study. Review Of Systems: At the time of my exam: CONSTITUTIONAL: Denies fever or chills. HEENT: Denies blurred vision, vision changes, or eye pain. Denies hemoptysis CARDIOVASCULAR: Denies chest pain. Denies orthopnea. Denies PND. Denies palpitations RESPIRATORY: Denies shortness of breath. GASTROINTESTINAL: Denies abdominal pain. Denies nausea or vomiting. HEMATOLOGIC: Denies bleeding disorders. GENITOURINARY: Denies any blood in urine. SKIN: Denies puritis. Denies rash. Physical examination: Gen: This is 74-year-old female in no acute distress VS: reviewed HEENT: Head is atraumatic, normocephalic. Pupils equal, round. Sclerae is anicteric. NECK: Supple. No JVD. LUNGS: Clear to auscultation. No wheezes or rhonchi. No intercostal retractions. HEART: Regular rate and rhythm. 2/6 systolic ejection murmur at the base, 2/6 diastolic murmur at the base. ABDOMEN: Soft No tenderness. EXTREMITIES: No pedal edema. No calf tenderness. NEUROLOGICAL: Patient is sleeping. Assessment: Sinus tachycardia Acute L1 compression deformity Status post fall Rhabdomyolysis Metabolic encephalopathy with mental status changes ongoing for 1 month COPD Chronic hypoxic respiratory failure on home O2 Hyperlipidemia Aortic insufficiency History of breast cancer status postlumpectomy followed by chemotherapy and radiation therapy Plan: Continue patient's home cardiac medications Continue the addition of metoprolol to tartrate 25 mg twice daily Recommend mental status workup Obtain 2-D echocardiogram and Doppler study to assess cardiac structure and function Obtain TSH Further recommendations to follow based upon clinical course Thank you kindly for this consultation. Nurse practitioner note has been reviewed, I agree with documented findings and plan of care. Patient was seen and examined. 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 Right breast cancer 2022 History of Any Multi-Drug Resistant Organisms: None Reported Past Surgical History: Breast Surgery, Hernia Repair, Orthopedic Surgery Additional Past Surgical History / Comment(s): Bilateral carpal tunnel; bilateral cataract removal with lens, bronchoscopy, R inguinal hernia repair, colonoscopy RT BREAST BIOSPY, cancer and the node had chemo and radiation july 2023, colonoscopy Past Anesthesia/Blood Transfusion Reactions: No Reported Reaction Additional Past Anesthesia/Blood Transfusion Reaction / Comment(s): no blood transfusion Past Psychological History: No Psychological Hx Reported Smoking Status: Former smoker Past Alcohol Use History: None Reported Past Drug Use History: None Reported - Past Family History Father Family Medical History: COPD Additional Family Medical History / Comment(s): Father in his 50s of COPD. He was a smoker. Mother Family Medical History: CVA/TIA, Hypertension, Pneumonia Additional Family Medical History / Comment(s): Mother fell at age 85 and fractu red her hip. Post op she became HTN and had a stroke and then ended up with pneumonia and . Sister(s) Family Medical History: Cancer Additional Family Medical History / Comment(s): breast Medications and Allergies Home Medications Medication Instructions Recorded Confirmed Type Bimatoprost [Lumigan 0.01% Ophth 1 drop BOTH EYES HS 10/13/17 07/28/24 History Soln] Atorvastatin [Lipitor] 10 mg PO W/SUPPER 03/19/21 07/28/24 History Ipratropium-Albuterol Nebulize 3 ml INHALATION RT-QID PRN 06/25/23 07/28/24 History [Duoneb 0.5 mg-3 mg/3 ml Soln] Budesonide [Pulmicort] 1 mg INHALATION RT-DAILY 11/22/23 07/28/24 History Pantoprazole [Protonix] 40 mg PO DAILY 07/21/24 07/28/24 History guaiFENesin [Mucinex] 600 mg PO BID 07/21/24 07/28/24 History HYDROcodone/APAP 5-325MG [[place] 1 tab PO Q8H PRN 07/28/24 07/28/24 History 5-325] Mometasone/Formoterol [Dulera 200 2 puff INHALATION RT-BID 07/28/24 07/28/24 History Mcg-5 Mcg Inhaler] predniSONE 5 mg PO Q2D 07/28/24 07/28/24 History predniSONE 10 mg PO Q2D 07/28/24 07/28/24 History Allergies Allergy/AdvReac Type Severity Reaction Status Date / Time budesonide [From Symbicort] AdvReac ANXIETY Verified 07/28/24 07:06 formoterol [From Symbicort] AdvReac ANXIETY Verified 07/28/24 07:06 zolpidem [From Ambien] AdvReac Hallucinati Verified 07/28/24 07:06 ons Physical Exam Vitals: Vital Signs Temp Pulse Pulse Resp BP Pulse Ox 07/31/24 07:57 84 07/31/24 07:18 97.3 F L 102 H 18 159/74 91 L 07/31/24 04:21 97.8 F 101 H 20 179/92 94 L 07/31/24 01:20 98.7 F 132 H 20 173/84 94 L 07/30/24 22:53 98.7 F 146 H 20 150/69 93 L 07/30/24 22:02 82 07/30/24 21:50 86 07/30/24 16:16 88 07/30/24 16:07 89 07/30/24 14:35 98.6 F 62 18 132/77 97 07/30/24 12:58 85 07/30/24 12:47 82 07/30/24 08:57 86 07/30/24 08:41 96 07/30/24 08:39 92 Intake and Output 07/30/24 07/31/24 07/31/24 22:59 06:59 14:59 Intake Total 420 420 Output Total 700 Balance -280 420 Intake: Oral 420 420 Output: Urine 700 Other: Voiding Method Diaper # Voids 4 Results 07/30/24 05:24 07/30/24 05:24 CBC 07/30/24 Range/Units 05:24 WBC 5.23 (4.50-10.00) X 10*3/uL RBC 3.87 L (4.10-5.20) X 10*6/uL Hgb 11.8 L (12.0-15.0) g/dL Hct 36.9 L (37.2-46.3) % Plt Count 219 (140-440) X 10*3/uL Comprehensive Metabolic Panel 07/30/24 Range/Units 05:24 Sodium 137 (135-145) mmol/L Potassium 3.9 (3.5-5.5) mmol/L Chloride 98 (96-109) mmol/L Carbon Dioxide 24.0 (21.6-31.8) mmol/L BUN 6.1 L (9.0-27.0) mg/dL Creatinine 0.6 (0.6-1.5) mg/dL Glucose 67 L (70-110) mg/dL Calcium 8.7 (8.7-10.3) mg/dL Current Medications Generic Name Dose Route Start Last Admin Trade Name Freq PRN Reason Stop Dose Admin Acetaminophen 650 mg 07/28/24 04:00 07/31/24 01:49 Acetaminophen Tab 325 Mg Tab PO 650 mg Q6HR PRN Administration Mild Pain or Fever > 100.5 Hydrocodone Bitart/Acetaminophen 1 each 07/29/24 11:44 07/30/24 06:30 Hydrocodone/Apap 5-325mg 1 Each Tab PO 1 each Q8HR PRN Administration Severe Pain (Scale 7 to 10) Al Hydroxide/Mg Hydroxide 15 ml 07/27/24 23:15 Mag Hydrox/Al Hydrox/Simeth 30 Ml Cup PO Q6HR PRN Indigestion Albuterol/Ipratropium 3 ml 07/28/24 08:00 07/31/24 07:57 Ipratropium-Albuterol 3 Ml Neb INHALATION 3 ml RT-QID ASH Administration Bisacodyl 5 mg 07/27/24 23:15 Bisacodyl 5 Mg Tablet.Dr PO DAILY PRN Constipation Budesonide/Formoterol Fumarate 2 puff 07/29/24 20:00 07/31/24 07:57 Symbicort 160-4.5 Mcg Inhaler INHALATION 2 puff RT-BID ASH Administration Calcium Carbonate/Glycine 1,000 mg 07/27/24 23:15 Calcium Carbonate 500 Mg Chewable PO Q4HR PRN Dyspepsia Enoxaparin Sodium 40 mg 07/28/24 09:00 07/30/24 08:41 Enoxaparin 40 Mg/0.4 Ml Syringe SQ 40 mg DAILY ASH Administration Famotidine 20 mg 07/28/24 09:00 07/30/24 21:23 Famotidine 20 Mg Tab PO 20 mg BID ASH Administration Guaifenesin 600 mg 07/27/24 23:30 07/30/24 21:23 Guaifenesin 600 Mg Tablet.Er PO 600 mg BID ASH Administration Hydromorphone HCl 0.5 mg 07/29/24 11:35 07/30/24 01:45 Hydromorphone 0.5 Mg/0.5 Ml Syringe IVP 08/15/24 13:00 0.5 mg Q4HR PRN Administration Severe Pain (Scale 7 to 10) Sodium Chloride 1,000 mls @ 75 mls/hr 07/27/24 22:00 07/30/24 06:33 Saline 0.9% IV Not Given .[id number] ASH Latanoprost 1 drops 07/29/24 21:00 07/30/24 21:23 Latanoprost 0.005% Ophth Drops 2.5 Ml Btl BOTH EYES 1 drops HS ASH Administration Metoprolol Tartrate 25 mg 07/30/24 23:45 07/30/24 23:39 Metoprolol Tartrate 25 Mg Tab PO 25 mg BID ASH Administration Naloxone HCl 0.2 mg 07/27/24 23:15 Naloxone 0.4 Mg/Ml 1 Ml Vial IV Q2M PRN Opioid Reversal Ondansetron HCl 4 mg 07/27/24 23:15 Ondansetron 4 Mg/2 Ml Vial IVP Q8HR PRN Nausea And Vomiting Pantoprazole Sodium 40 mg 07/28/24 09:00 07/30/24 08:41 Pantoprazole 40 Mg Tablet PO 40 mg DAILY ASH Administration Prednisone 5 mg 07/29/24 11:00 07/29/24 12:05 Prednisone 5 Mg Tab PO 5 mg Q2D@0900 ASH Administration Prednisone 10 mg 07/30/24 09:00 07/30/24 08:41 Prednisone 10 Mg Tab PO 10 mg Q2D@0900 ASH Administration Tramadol HCl 50 mg 07/27/24 23:15 07/30/24 21:23 Tramadol 50 Mg Tab PO 50 mg Q6H PRN Administration Moderate Pain (Scale 4 to 6) Intake and Output 07/30/24 07/31/24 07/31/24 22:59 06:59 14:59 Intake Total 420 420 Output Total 700 Balance -280 420 Intake: Oral 420 420 Output: Urine 700 Other: Voiding Method Diaper # Voids 4 07/30/24 05:24 07/30/24 05:24
[2024-07-31 10:58] LABS: BUN/Creat Ratio 10.29 Ratio (12.00-20.00); Blood Urea Nitrogen 7.2 mg/dL (9.0-27.0); Calcium 9.2 mg/dL (8.7-10.3); Carbon Dioxide 26.6 mmol/L (21.6-31.8); Chloride 100 mmol/L (96-109); Glucose 96 mg/dL (70-110); Potassium 4.1 mmol/L (3.5-5.5); Sodium 138 mmol/L (135-145)
[2024-07-31] MEDS ORDERED: IPRATROPIUM-ALBUTEROL 3 ML NEB INHALATION PRN (15:47)
--- NOTE | 2024-07-31 16:10 | XR ---
EXAMINATION TYPE: XR chest 1V portable DATE OF EXAM: 07/31/2024 4:03 PM COMPARISON: Chest radiographs from 04/15/2024, CT chest abdomen and pelvis 07/27/2024 TECHNIQUE: XR chest 1V portable Portable AP radiograph of the chest. CLINICAL INDICATION:Female, 74 years old with history of shortness of breath; FINDINGS: Lungs/Pleura: There is no evidence of pleural effusion, focal consolidation, or pneumothorax. Hyperi nflation with chronic senescent parenchymal change. Pulmonary vascularity: Unremarkable. Heart/mediastinum: Cardiomediastinal silhouette is unremarkable. Atherosclerotic calcifications are seen in the aorta. Musculoskeletal: No acute osseous pathology. Other findings: Surgical clips within the right breast and axilla. IMPRESSION: 1. No acute cardiopulmonary disease/process. 2. COPD changes. [facility], , 07/31/2024 4:07 PM
[2024-07-31] MEDS: QUEtiapine 25 MG TAB PO SCH (20:10)
[2024-08-01] MEDS ORDERED: ZINC OXIDE PASTE (Z-GUARD) 1 APPLIC TOPICAL PRN (01:52)
--- NOTE | 2024-08-01 02:08 | P.PN ---
Subjective Progress Note Date: 07/31/24 74 y/o female PMH COPD, HLD presenting today for fall at home today. Pt was getting out of bed this morning and got twisted in her sheets, causing her to fall into her left side. Was unable to stand afterwards or reach her phone so spend the day on the floor until a wellness check was done and pt was found on the floor of her home. She thinks she may have hit the left side of her face but otherwise denies head or neck trauma. Denies LOC. Currently denies numbness or weakness of her extremities, MAI, dizziness, chest pain or abdominal pain. Endorses left hip and left sided back pain. Is not on thinners. Blood work completed in ED reveals a WBC of 9.1, hemoglobin of 14 mg and platelet count of 247, sodium 132, potassium 4.2, BUNs/creatinine of 20/0.75 UA is unremarkable X-rays femur, hips, no signs of fracture or dislocation on review of these films agree with radiologist intrepretation CT brain, no evidence of hemorrhage, mass effect or skull fracture CT C-spine no evidence of fracture or malalignment CT chest abdomen pelvis; there is a new L1 compression fracture 07/30/2024 Patient is seen and evaluated in room at bedside; does have back brace on at this time; reports it helps getting out of bed Vital signs are reviewed and are stable Lab review shows WBC 5.2, hemoglobin 11.8 and platelet count of 219, sodium 137, potassium 3.9, BUNs/creatinine of 6.1/0.6, creatinine kinase is trending down and is at 404 this morning --Patient evaluated by orthopedic surgery and has opted for conservative treatment and has been provided with TLSO brace for new L1 compression fracture -Continue with IV fluid for rhabdo my doses and continue to trend CK periodically -Await PT/OT evaluation 07/31/2024 Patient is seen in follow-up today with orthopedics and cardiology following. Patient with no plans of surgical intervention at this time we will continue with conservative management and TLSO brace. Recommend PT/OT therapy evaluation in the event patient may need ECF. Patient is having some congestion and will add breathing treatment and consult pulmonary. Recommend discontinuing fluids and CK is trending down. Patient with continued confusion and sedation also recommend discontinuing Dilaudid and [place]. Review of systems: Unable to completely assess as patient is confused and lethargic Physical exam: Gen: This is a 74-year-old female who is asleep although arousable, becomes confused, well-developed, elderly appearing, thin built HEENT: Head is atraumatic, normocephalic. Pupils equal, round. Sclerae is anicteric. NECK: Supple. No JVD. No lymphadenopathy. No thyromegaly. LUNGS: Diminished breath sounds bilaterally with some faint expiratory wheezes and coarse rhonchi noted. No intercostal retractions. HEART: S1, S2 are muffled ABDOMEN: Soft. Bowel sounds are present. No masses. No tenderness. EXTREMITIES: No pedal edema. No calf tenderness. NEUROLOGICAL: Patient is awake, alert and oriented x 1. Cranial nerves 2 through 12 are grossly intact. Diffusely weak Assessment: 1. Mechanical fall; compression fracture of L1 vertebra -CT of the abdomen and pelvis completed reveals acute compression fracture of L1 vertebra -Patient having continued confusion and will discontinue Dilaudid and [place]. -Orthopedics has evaluated with no plans of surgical intervention, recommending conservative management and will use TLSO brace 2. Rhabdomyolysis; secondary to traumatic fall with prolonged downtime, C P [facility] is trending down, will discontinue IV fluids 3. Hyponatremia; mild; improving; will monitor electrolytes closely and make fu rther recommendations 4. COPD; not in exacerbation; continue with home inhaler therapy 5. Hyperlipidemia; Lipitor 10 mg p.o. nightly 6. Gastroesophageal reflux disease; Protonix 40 mg daily DVT prophylaxis; SCDs/subcu Lovenox CODE STATUS; full code Plan: Patient admitted with fall and compression fracture noted with orthopedics has evaluating the patient recommending conservative management. TLSO brace is ordered and will also await physical therapy evaluation. Patient was confused and lethargic and physical therapy to reevaluate Case management/social work following and will likely require ECF on discharge. Patient CK levels trending down and will discontinue IV fluids Pulmonary consulted as well as patient is having increased desaturations and increased phlegm and congestion. Patient does have COPD history although does not appear to be in exacerbation The impression and plan of care has been dictated by Priyanka Carrion Nurse Practitioner as directed. Dr. Jeff MD I have performed a history and examination and MDM of this patient, discussed the same with the dictator, and agree with the dictator's assessment and plan as written ,documented as a scribe. Based on total visit time, I have performed more than 50% of the visit. Objective - Vital Signs Vital signs: Vital Signs Temp 97.3 F L 07/31/24 07:18 Pulse 80 07/31/24 08:15 Resp 18 07/31/24 07:18 BP 159/74 07/31/24 07:18 Pulse Ox 91 L 07/31/24 07:18 FiO2 Intake & Output 07/30/24 07/31/24 07/31/24 18:59 06:59 18:59 Intake Total 420 420 Output Total 700 Balance -280 420 Intake: Oral 420 420 Output: Urine 700 Other: Voiding Method External Catheter Diaper Diaper Incontinent # Voids 4 - Labs CBC & Chem 7: 07/30/24 05:24 07/31/24 07:00
[2024-08-01 04:14] VITALS: RESP 17
[2024-08-01 04:53] LABS: ABG Base Excess 4.1 mmol/L; ABG HCO3 29 mmol/L (21-25); ABG Oxygen Saturation 98.1 % (94-97); ABG PCO2 46 mmHg (35-45); ABG PH 7.42 (7.35-7.45); ABG PO2 97 mmHg (83-108); ABG TCO2 31 mmol/L (19-24); Allen Test Performed? Yes
--- NOTE | 2024-08-01 06:43 | P.CNPUL ---
History of Present Illness Consult date: 08/01/24 Requesting physician: Priyanka Carrion Reason for consult: COPD Chief complaint: Fall History of present illness: I am seeing this patient in consultation for COPD. Originally, presented to emergency department back on 07/27/2024 after sustaining a fall. She did spend a prolonged time on the ground. Workup in the ED remarkable for a compression deformity of L1 with approximately 0.6 cm posterior wall displacement. Also, developed a mild rhabdomyolysis. CT of the brain/C-spine did not show any acute intracranial process, no acute osseous abnormalities of the C-spine. Most recent available CBC from 07/30/2024: WBC count 5.23, hemoglobin 11.8, hematocrit 36.9, platelets 219. CMP from yesterday: Sodium 138, potassium 4.1, chloride 100, serum bicarb 26, BUN 11, creatinine 0.7, glucose 96. CPK peaked at 938 and is downtrending. Orthopedic surgery was previously consulted. No plans for s urgical intervention at this time. Patient was fitted with LSO brace. During this hospitalization, patient has reportedly become more confused/agitated. Per the staff nurse, she has not slept in over 24 hours. Appears, she has been given a dose of Haldol previously, and started on Seroquel 25 mg at bedtime. On my evaluation, patient is difficult to arouse. Will withdraw to painful stimuli. Cannot offer any information. Currently on 3 L/min nasal cannula. Does not appear to be any respiratory distress. She does have history of oxygen and steroid dependent COPD with an FEV1 30% of predicted. Chest x-ray done yesterday did not show any acute cardiopulmonary process. Hyperinflation and c hronic parenchymal changes noted and consistent with COPD. Previously started on a combination of DuoNebs [id number], Symbicort inhaler, and oral prednisone. I did order an ABG to be done, PaO2 97, pCO2 46, pH of 7.42. Current vital signs: Temperature 97.9 F, heart rate 79 bpm, blood pressure 137/70 mmHg, nontachypneic, SpO2 was recorded at 100% on 3 L/min nasal cannula. 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 Right breast cancer 2022 History of Any Multi-Drug Resistant Organisms: None Reported Past Surgical History: Breast Surgery, Hernia Repair, Orthopedic Surgery Additional Past Surgical History / Comment(s): Bilateral carpal tunnel; bilateral cataract removal with lens, bronchoscopy, R inguinal hernia repair, colonoscopy RT BREAST BIOSPY, cancer and the node had chemo and radiation july 2023, colonoscopy Past Anesthesia/Blood Transfusion Reactions: No Reported Reaction Additional Past Anesthesia/Blood Transfusion Reaction / Comment(s): no blood transfusion Past Psychological History: No Psychological Hx Reported Smoking Status: Former smoker Past Alcohol Use History: None Reported Past Drug Use History: None Reported - Past Family History Father Family Medical History: COPD Additional Family Medical History / Comment(s): Father in his 50s of COPD. He was a smoker. Mother Family Medical History: CVA/TIA, Hypertension, Pneumonia Additional Family Medical History / Comment(s): Mother fell at age 85 and fractured her hip. Post op she became HTN and had a stroke and then ended up with pneumonia and . Sister(s) Family Medical History: Cancer Additional Family Medical History / Comment(s): breast Medications and Allergies Home Medications Medication Instructions Recorded Confirmed Type Bimatoprost [Lumigan 0.01% Ophth 1 drop BOTH EYES HS 10/13/17 07/28/24 History Soln] Atorvastatin [Lipitor] 10 mg PO W/SUPPER 03/19/21 07/28/24 History Ipratropium-Albuterol Nebulize 3 ml INHALATION RT-QID PRN 06/25/23 07/28/24 History [Duoneb 0.5 mg-3 mg/3 ml Soln] Budesonide [Pulmicort] 1 mg INHALATION RT-DAILY 11/22/23 07/28/24 History Pantoprazole [Protonix] 40 mg PO DAILY 07/21/24 07/28/24 History guaiFENesin [Mucinex] 600 mg PO BID 07/21/24 07/28/24 History HYDROcodone/APAP 5-325MG [[place] 1 tab PO Q8H PRN 07/28/24 07/28/24 History 5-325] Mometasone/Formoterol [Dulera 200 2 puff INHALATION RT-BID 07/28/24 07/28/24 History Mcg-5 Mcg Inhaler] predniSONE 5 mg PO Q2D 07/28/24 07/28/24 History predniSONE 10 mg PO Q2D 07/28/24 07/28/24 History Allergies Allergy/AdvReac Type Severity Reaction Status Date / Time budesonide [From Symbicort] AdvReac ANXIETY Verified 07/28/24 07:06 formoterol [From Symbicort] AdvReac ANXIETY Verified 07/28/24 07:06 zolpidem [From Ambien] AdvReac Hallucinati Verified 07/28/24 07:06 ons Physical Exam Vitals: Vital Signs Temp Pulse Pulse Resp BP Pulse Ox 08/01/24 01:02 97.9 F 79 17 137/70 100 07/31/24 19:34 98.7 F 113 H 16 119/59 96 07/31/24 15:27 80 07/31/24 15:14 78 07/31/24 14:22 98.6 F 112 H 18 140/65 97 07/31/24 12:07 84 07/31/24 11:57 84 07/31/24 08:15 80 07/31/24 08:00 103 H 07/31/24 07:57 84 07/31/24 07:18 97.3 F L 102 H 18 159/74 91 L Intake and Output 07/31/24 07/31/24 08/01/24 14:59 22:59 06:59 Other: Voiding Method Diaper Diaper Incontinent # Voids 2 3 GENERAL EXAM: 74-year-old white female, difficult to arouse, on 3 L/min nasal cannula, nonlabored breathing. HEAD: Normocephalic and atraumatic EYES: Normal reaction of pupils, equal size. NOSE: Clear with pink turbinates. THROAT: No erythema or exudates. NECK: No masses, no JVD. CHEST: No chest wall deformity. LUNGS: Equal air entry with no crackles, wheeze, rhonchi or dullness. On 3 L/min nasal cannula. No conversational dyspnea or accessory muscle use.. CVS: S1 and S2 normal with no audible murmur, regular rhythm. No extra heart sounds ABDOMEN: No hepatosplenomegaly, active bowel sounds, no guarding or rigidity. SPINE: No scoliosis or deformity SKIN: No rashes CENTRAL NERVOUS SYSTEM: Obtunded, withdraws to painful stimuli in all 4 extremities, no focal deficits noted. EXTREMITIES: There is no peripheral edema, clubbing, or cyanosis. Peripheral pulses are intact. Results - Laboratory Findings CBC and BMP: 07/30/24 05:24 07/31/24 07:00 ABG ABG pH 7.42 (7.35-7.45) 08/01/24 04:50 ABG pCO2 46 mmHg (35-45) H 08/01/24 04:50 ABG pO2 97 mmHg (83-108) 08/01/24 04:50 ABG O2 Saturation 98.1 % (94-97) H 08/01/24 04:50 PT/INR, D-dimer PT 11.9 sec (10.0-12.5) 07/27/24 20:38 INR 1.1 (<1.2) 07/27/24 20:38 Abnormal lab findings: Abnormal Labs 07/27/24 07/27/24 07/27/24 20:38 20:38 20:38 RBC Hgb Hct Lymphocytes # 0.6 L APTT 20.5 L ABG pCO2 ABG HCO3 ABG Total CO2 ABG O2 Saturation Hemoglobin Sodium 132 L Anion Gap BUN 20 H BUN/Creatinine Ratio Glucose Total Bilirubin 1.5 H Alkaline Phosphatase 160 H Creatine Kinase 458 H Total Protein 6.1 L Urine Ketones Urine Blood Urine Mucus 07/28/24 07/28/24 07/29/24 02:00 06:55 10:19 RBC Hgb Hct Lymphocytes # APTT ABG pCO2 ABG HCO3 ABG Total CO2 ABG O2 Saturation Hemoglobin Sodium 134 L Anion Gap BUN BUN/Creatinine Ratio Glucose 72 L Total Bilirubin Alkaline Phosphatase Creatine Kinase 938 H 495 H Total Protein Urine Ketones 1+ H Urine Blood Small H Urine Mucus Rare H 07/30/24 07/30/24 07/31/24 05:24 05:24 07:00 RBC 3.87 L Hgb 11.8 L Hct 36.9 L Lymphocytes # 0.43 L APTT ABG pCO2 ABG HCO3 ABG Total CO2 ABG O2 Saturation Hemoglobin Sodium Anion Gap 15.00 H BUN 6.1 L 7.2 L BUN/Creatinine Ratio 10.17 L 10.29 L Glucose 67 L Total Bilirubin Alkaline Phosphatase Creatine Kinase 404 H Total Protein Urine Ketones Urine Blood Urine Mucus 08/01/24 04:50 RBC Hgb Hct Lymphocytes # APTT ABG pCO2 46 H ABG HCO3 29 H ABG Total CO2 31 H ABG O2 Saturation 98.1 H Hemoglobin 10.4 L Sodium Anion Gap BUN BUN/Creatinine Ratio Glucose Total Bilirubin Alkaline Phosphatase Creatine Kinase Total Protein Urine Ketones Urine Blood Urine Mucus - Diagnostic Findings Chest x-ray: image reviewed Assessment and Plan Assessment: Mechanical fall, sustaining compression deformity of L1, managed conservatively by orthopedic surgery, fitted for LSO brace Rhabdomyolysis, CPK downtrending Severe oxygen and steroid-dependent chronic obstructive pulmonary disease, not in exacerbation Chronic hypoxemic respiratory failure, secondary to above Altered mental status and suspected acute delirium History of hyperlipidemia History of breast cancer status post chemotherapy Gastroesophageal reflux disease Plan: Patient's medications, labs, imaging reviewed Patient COPD appears stable on clinical examination Chest x-ray does not show any acute cardiopulmonary process, hyperinflation and chronic parenchymal changes, consistent with COPD Continue supplemental oxygen, wean FiO2 as tolerated, currently on 3 L/min nasal cannula Continue with combination of DuoNebs, Symbicort inhaler, and oral prednisone ABG is reassuring Reportedly going to ECF on hospital discharge I have personally seen and examined the patient, performed the documentation and the assessment and plan as written. Number of minutes spent on the visit:20 This dictation was produced using [employer] dictation software please excuse grammatical errors Time with Patient: Greater than 30
--- NOTE | 2024-08-01 11:44 | P.PN ---
Progress Note - Text Progress Note Date: 08/01/24 The patient is seen and examined at bedside. She is not having any new pains. She is not have any changes of her bowel bladder function or her lower extremities. She still has discomfort at her lower back when she tries to mobilize. She has been using her brace but she has had limited mobility. She is continue her management for her COPD as well as her prolonged downtime after her fall. Neurologically she has sustained dorsiflexion plantarflexion EHL intact with 5 out of 5 strength. There is no pain with internal ex rotation of her hips. Her calves and thighs are soft nontender. Her back is tenderness to palpation at the midline. Assessment and plan Acute L1 compression fracture status post fall, neurologic intact Low back pain due to fracture and fall Severe COPD Rhabdomyolysis The patient's fracture appears to be relatively stable and we will continue plan conservative treatment. We discussed this with her and her family again today. They will utilize the brace whenever she is up out of bed and try to increase her mobility. She has had limited mobility thus far but can gradually increase her mobilization with ambulation and gentle activities less than 5 pounds with the LSO brace intact. I discussed this again today. It is okay to continue her management in terms of her spinal issue on outpatient basis. She should use her bait brace whenever she is elevated greater than 30 degrees and out of bed. She does not need to use a brace while she is flat in bed or while bathing. She will continue her medical management. She is okay from a spine standpoint for discharge when she is cleared with medicine.
[2024-08-01 12:39] LABS: Blood Urea Nitrogen 9.1 mg/dL (9.0-27.0); Calcium 9.2 mg/dL (8.7-10.3); Carbon Dioxide 28.1 mmol/L (21.6-31.8); Chloride 104 mmol/L (96-109); Glucose 85 mg/dL (70-110); Potassium 3.9 mmol/L (3.5-5.5); Sodium 144 mmol/L (135-145)
--- NOTE | 2024-08-01 13:06 | P.PN ---
Subjective Progress Note Date: 08/01/24 Reason for Consult (text): New onset tachycardia [id number] History of present illness: This is a 74-year-old female patient of Dr. Miles with past medical history of COPD, hyperlipidemia, aortic valve insufficiency, breast cancer status postlumpectomy and chemotherapy and radiation therapy, chronic hypoxic respiratory failure on home O2. We have been asked to evaluate the patient for new onset of tachycardia 140 250 beats. Patient initially presented to the hospital on 07/27 after a fall getting out of bed when she was twisted in the sheets. She was unable to stand after the fall and spent the day on the floor until a wellness check found her. She has been seen by orthopedics for acute L1 compression deformity. Patient has been treated for rhabdomyolysis. Family member at bedside states that patient has had change in mental status over the past month and forgetting things. She apparently forgot to pay some bills and also is having trouble taking her medications. When patient had her last follow-up with her PCP, apparently she did not mention this. Patient was awake all day yesterday and during the night and was agitated pulled her IV. Patient noted to have SVT during the night which has resolved. Patient was started on Lopressor 25 mg twice daily last evening. Blood pressure 159/74, heart rate 102, pulse ox 91% on room air. -EKG: Sinus rhythm with no acute ST changes -CT of the head and neck revealed no acute intracranial process. Periventricular white matter ischemic changes with atrophy. No acute osseous abnormality in the cervical spine. Degenerative disc disease with foraminal stenosis. -CT of the chest abdomen and pelvis: Compression deformity L1. -Laboratory studies: WBC 5.2, hemoglobin 9.8. Potassium 3.9, BUN 6 and creatinine 0.6. CK is down to 404 and had peaked at 938. Troponin negative x 2. -Home cardiac medications: Atorvastatin 10 mg with supper. -Echocardiogram performed 01/11/2023 revealed normal EF, mild TR, mild MR, mild to moderate AR. -Lexiscan stress test performed 2016 was normal EF and normal study. 3/4 Patient seen and examined. Patient is still quite sleepy but more alert from . She has refused echocardiogram. Blood pressure 146/71, heart rate 98, pulse ox 99% on 3 L nasal cannula. Repeat blood work reveals BMP within normal limits. TSH was 3.74. Physical examination: Gen: This is 74-year-old female in no acute distress VS: reviewed HEENT: Head is atraumatic, normocephalic. Pupils equal, round. Sclerae is anicteric. NECK: Supple. No JVD. LUNGS: Clear to auscultation. No wheezes or rhonchi. No intercostal retractions. HEART: Regular rate and rhythm. 2/6 systolic ejection murmur at the base, 2/6 diastolic murmur at the base. ABDOMEN: Soft No tenderness. EXTREMITIES: No pedal edema. No calf tenderness. NEUROLOGICAL: Patient is sleeping awakens for verbal stimuli. Assessment: Sinus tachycardia Acute L1 compression deformity Status post fall Rhabdomyolysis Metabolic encephalopathy with mental status changes ongoing for 1 month COPD Chronic hypoxic respiratory failure on home O2 Hyperlipidemia Aortic insufficiency History of breast cancer status postlumpectomy followed by chemotherapy and radiation therapy Plan: Continue patient's home cardiac medications Continue the addition of metoprolol to tartrate 25 mg twice daily Recommend mental status workup No further cardiac workup at this time. Patient may follow-up in the office with Dr. Miles and we will obtain echocardiogram at that time. Nurse practitioner note has been reviewed, I agree with documented findings and plan of care. Patient was seen and examined. Objective - Vital Signs Vital signs: Vital Signs Temp 97.6 F 08/01/24 08:00 Pulse 76 08/01/24 09:10 Resp 17 08/01/24 08:00 BP 146/71 08/01/24 08:00 Pulse Ox 100 08/01/24 08:54 FiO2 Intake & Output 07/31/24 08/01/24 08/01/24 18:59 06:59 18:59 Intake Total 540 Balance 540 Intake: Oral 540 Other: Voiding Method Diaper Diaper Incontinent # Voids 3 5 - Labs CBC & Chem 7: 07/30/24 05:24 08/01/24 05:28 Labs: Abnormal Lab Results - Last 24 Hours (Table) 07/31/24 08/01/24 Range/Units 07:00 04:50 ABG pCO2 46 H (35-45) mmHg ABG HCO3 29 H (21-25) mmol/L ABG Total CO2 31 H (19-24) mmol/L ABG O2 Saturation 98.1 H (94-97) % Hemoglobin 10.4 L (11.4-16.0) gm/dL BUN 7.2 L (9.0-27.0) mg/dL BUN/Creatinine Ratio 10.29 L (12.00-20.00) Ratio
[2024-08-01 14:09] VITALS: BP 127/69; TEMP 98.2
--- NOTE | 2024-08-01 14:32 | P.DS ---
Providers Date of admission: 07/27/24 23:21 Expected date of discharge: 08/01/24 Attending physician: Nancy King MD Consults: 07/29/24 08:52 Consult Physician Stat Consulting Provider: Ashlyn Strange Consult Reason/Comments: L1 compression Do you want consulting provider notified?: Yes 07/30/24 23:36 Consult Physician Routine Consulting Provider: Dioni Marie Consult Reason/Comments: New onset tachycardia, 140s-150s Do you want consulting provider notified?: Yes, Notify in am 07/31/24 15:48 Consult Physician Urgent Consulting Provider: Bucky Patel Consult Reason/Comments: congestion, copd, sees zara, desats quickly Do you want consulting provider notified?: Yes Primary care physician: Jluis Mohan Hospital Course: Final diagnosis 1. Mechanical fall; compression fracture of L1 vertebra, status post orthopedic evaluation recommending conservative management and use of TLSO brace - 2. Rhabdomyolysis; secondary to traumatic fall with prolonged downtime, CK is trending down 3. Hyponatremia; mild; improving 4. COPD; not in exacerbation; continue with home inhaler therapy 5. Hyperlipidemia 6. Gastroesophageal reflux disease; DVT prophylaxis; SCDs/subcu Lovenox CODE STATUS; full code Discharge disposition Patient is being discharged in a stable condition with guarded prognosis to [facility]. Patient will follow-up with Dr. Mohan in the outpatient setting upon discharge. Patient is to continue with conservative management and TLSO brace while out of bed and outpatient follow-up with orthopedics as scheduled. Total time taken is greater than 35 minutes. Hospital course This is a 74-year-old fe with fall male who was recently admitted and rhabdomyolysis with prolonged downtime with elevated CK levels and noted to have new compression fracture of the L1 vertebrae. Patient was evaluated by orthopedics recommending conservative management as patient does not want surgical intervention at this time. Patient will use TLSO brace while out of bed and will follow-up in the outpatient setting with Dr. Strange. Patient with progressive weakness and difficulty ambulating was evaluated by physical therapy and has been recommended to go to rehab. Patient and family are agreeable. Patient has received insurance authorization and will be going to [facility]. Please refer to other consultation notes for further HPI. Currently no reports of chest pain, shortness of breath, or palpitations. Patient is afebrile. No reports of nausea or vomiting and patient is tolerating diet. Patient will be going to [facility] today. Physical exam: Gen: This is a 74-year-old female who is awake, alert and oriented x 2-3, baseline, well-developed, elderly appearing HEENT: Head is atraumatic, normocephalic. Pupils equal, round. Sclerae is anicteric. NECK: Supple. No JVD. No lymphadenopathy. No thyromegaly. LUNGS: Diminished breath sounds bilaterally clear to auscultation. No wheezes, coarse then. Rhonchi. No intercostal retractions. HEART: Regular rate and rhythm. No murmur. ABDOMEN: Soft. Bowel sounds are present. No masses. No tenderness. EXTREMITIES: No pedal edema. No calf tenderness. NEUROLOGICAL: Patient is awake, alert and oriented x2-3 Cranial nerves 2 through 12 are grossly intact. Diffusely weak Please refer to medication reconciliation sheet for a list of medications. The impression and plan of care has been dictated by Priyanka Carrion, Nurse Practitioner as directed. Dr. Jeff MD I have performed a history and examination and MDM of this patient, discussed the same with the dictator, and agree with the dictator's assessment and plan as written ,documented as a scribe. Based on total visit time, I have performed more than 50% of the visit. Patient Condition at Discharge: Stable Plan - Discharge Summary Discharge Rx Participant: Yes New Discharge Prescriptions: New Ipratropium-Albuterol Nebulize [Duoneb 0.5 mg-3 mg/3 ml Soln] 3 ml INHALATION RT-QID each Enoxaparin [Lovenox] 40 mg SQ DAILY each QUEtiapine [SEROquel] 12.5 mg PO HS PRN tab PRN Reason: Agitation Acetaminophen Tab [Tylenol] 650 mg PO Q6HR PRN tab PRN Reason: Mild Pain Or Fever > 100.5 bisacodyL [Dulcolax] 5 mg PO DAILY PRN tab PRN Reason: Constipation Metoprolol Tartrate [Lopressor] 25 mg PO BID tab Mag Hydrox/Al Hydrox/Simeth [Maalox] 15 ml PO Q6HR PRN ml PRN Reason: Indigestion Famotidine [Pepcid] 20 mg PO BID tab Calcium Carbonate [Tums] 1,000 mg PO Q4HR PRN tab PRN Reason: Dyspepsia traMADol HCl [Ultram] 50 mg PO Q6H PRN #4 tab PRN Reason: Moderate Pain (Scale 4 To 6) Continue Bimatoprost [Lumigan 0.01% Ophth Soln] 1 drop BOTH EYES HS Ipratropium-Albuterol Nebulize [Duoneb 0.5 mg-3 mg/3 ml Soln] 3 ml INHALATION RT-QID PRN PRN Reason: COPD predniSONE 10 mg PO Q2D Pantoprazole [Protonix] 40 mg PO DAILY guaiFENesin [Mucinex] 600 mg PO BID Mometasone/Formoterol [Dulera 200 Mcg-5 Mcg Inhaler] 2 puff INHALATION RT-BID predniSONE 5 mg PO Q2D Discontinued Budesonide [Pulmicort] 1 mg INHALATION RT-DAILY HYDROcodone/APAP 5-325MG [[place] 5-325] 1 tab PO Q8H PRN PRN Reason: Moderate Pain (Scale 4 To 6) Atorvastatin [Lipitor] 10 mg PO W/SUPPER Discharge Medication List Bimatoprost [Lumigan 0.01% Ophth Soln] 1 drop BOTH EYES HS 10/13/17 [History] Ipratropium-Albuterol Nebulize [Duoneb 0.5 mg-3 mg/3 ml Soln] 3 ml INHALATION RT-QID PRN 06/25/23 [History] Pantoprazole [Protonix] 40 mg PO DAILY 07/21/24 [History] guaiFENesin [Mucinex] 600 mg PO BID 07/21/24 [History] Mometasone/Formoterol [Dulera 200 Mcg-5 Mcg Inhaler] 2 puff INHALATION RT-BID 07/28/24 [History] predniSONE 5 mg PO Q2D 07/28/24 [History] predniSONE 10 mg PO Q2D 07/28/24 [History] Acetaminophen Tab [Tylenol] 650 mg PO Q6HR PRN tab 08/01/24 [Rx] Calcium Carbonate [Tums] 1,000 mg PO Q4HR PRN tab 08/01/24 [Rx] Enoxaparin [Lovenox] 40 mg SQ DAILY each 08/01/24 [Rx] Famotidine [Pepcid] 20 mg PO BID tab 08/01/24 [Rx] Ipratropium-Albuterol Nebulize [Duoneb 0.5 mg-3 mg/3 ml Soln] 3 ml INHALATION RT-QID each 08/01/24 [Rx] Mag Hydrox/Al Hydrox/Simeth [Maalox] 15 ml PO Q6HR PRN ml 08/01/24 [Rx] Metoprolol Tartrate [Lopressor] 25 mg PO BID tab 08/01/24 [Rx] QUEtiapine [SEROquel] 12.5 mg PO HS PRN tab 08/01/24 [Rx] bisacodyL [Dulcolax] 5 mg PO DAILY PRN tab 08/01/24 [Rx] traMADol HCl [Ultram] 50 mg PO Q6H PRN #4 tab 08/01/24 [Rx] Follow up Appointment(s)/Referral(s): Jluis Mohan DO [Primary Care Provider] - 1-2 days Oscar Morillo PAC [PHYSICIAN INSIDE SALES TRAINER] - 2 Weeks (Patient may follow-up with Oscar Morillo PA-C or Dr. Estevan Strange at [facility] in 2-3 weeks following discharge. ) [facility] [place] - As Needed Activity/Diet/Wound Care/Special Instructions: 1. Patient may wear LSO brace for comfort and support while sitting upright at greater than 45, while working with therapy, and while ambulating; patient does not have to wear the brace while lying in bed or bathing 2. Patient should avoid excessive bending, twisting, and lifting; no lifting greater than 10 pounds Discharge Disposition: TRANSFER TO SNF/ECF
[2024-08-01 15:52] VITALS: PULSE 72
[2024-08-01 16:48] VITALS: BMI 24.5
--- NOTE | 2024-08-02 18:39 | CA ---
Transthoracic Echo Report Name: Adeline Johansen Age: 74 Gender: F : 1950 Exam Date: 08/02/2024 07:34 Exam Location: [place] [facility] Ht (in): 64 Wt (lb): 143 Ordering Physician: Maryanne Jose Attending/Referring Phys: Traffic Law Attorney Brenda Murphy RDCS Procedure CPT: Indications: LVF Cardiac Hx: Technical Quality: Fair Contrast 1: Total Dose (mL): Contrast 2: Total Dose (mL): MEASUREMENTS (Male / Female) Normal Values 2D ECHO LV Diastolic Diameter PLAX 3.7 cm 4.2 - 5.9 / 3.9 - 5.3 cm LV Systolic Diameter PLAX 2.7 cm IVS Diastolic Thickness 1.1 cm 0.6 - 1.0 / 0.6 - 0.9 cm LVPW Diastolic Thickness 1.2 cm 0.6 - 1.0 / 0.6 - 0.9 cm LV Relative Wall Thickness 0.6 RV Internal Dim ED PLAX 2.9 cm LA Systolic Diameter LX 3.2 cm 3.0 - 4.0 / 2.7 - 3.8 cm M-MODE Aortic Root Diameter MM 2.8 cm DOPPLER AV Peak Velocity 103.4 cm/s AV Peak Gradient 4.3 mmHg Mitral E Point Velocity 99.4 cm/s Mitral A Point Velocity 90.4 cm/s Mitral E to A Ratio 1.1 MV Deceleration Time 165.6 ms MV E' Velocity 9.9 cm/s Mitral E to MV E' Ratio 10.0 TR Peak Velocity 264.7 cm/s TR Peak Gradient 28.0 mmHg Right Ventricular Systolic Press 43.0 mmHg FINDINGS Left Ventricle Left ventricular ejection fraction is estimated at 55-60 %. Small left ventricular cavity. Normal left ventricular systolic function with no obvious regional wall motion abnormalities. Mildly increased left ventricular wall thickness. Right Ventricle Normal right ventricular size and function. Mild pulmonary hypertension. Right Atrium Normal right atrial size. No right atrial thrombus or mass seen. Left Atrium Normal left atrial size. No left atrial thrombus or mass present. Mitral Valve Mitral valve thickened. No evidence for mitral valve prolapse. No mitral stenosis. Mild mitral regurgitation.mitral annular calcification. Aortic Valve Trileaflet aortic valve. No aortic valve stenosis or regurgitation.aortic valve sclerosis. Tricuspid Valve Structurally normal tricuspid valve. Mild tricuspid regurgitation. Pulmonic Valve Pulmonic valve not well visualized. No pulmonic regurgitation. Pericardium No pericardial effusion. Aorta Normal size aortic root and proximal ascending aorta. CONCLUSIONS Technically difficult study. Normal ventricular size and systolic function Mild mitral and tricuspid regurgitation with mild pulmonary hypertension Previewed by: Dr. Jocelin Miles MD (Electronically Signed) Final Date: 02 August 2024 18:38
== END 2024-08-01 16:40 | DRG 551 ==
LOC: EC 20:20 → 4SSUR 23:20 → OBSVTOIN 23:21 → 1SOBS 07-28 14:33 → 4SSUR 07-28 18:55
PROVIDERS: ADMIT Internal Medicine; ATTEND Internal Medicine
DX: S32.010A Wedge compression fracture of first lumbar vertebra, initial encounter for closed fracture (principal); G93.41 Metabolic encephalopathy; E87.1 Hypo-osmolality and hyponatremia; I47.10 Supraventricular tachycardia, unspecified; T79.6XXA Traumatic ischemia of muscle, initial encounter; J44.9 Chronic obstructive pulmonary disease, unspecified; I35.1 Nonrheumatic aortic (valve) insufficiency; J96.11 Chronic respiratory failure with hypoxia; E78.5 Hyperlipidemia, unspecified; K21.9 Gastro-esophageal reflux disease without esophagitis; R26.2 Difficulty in walking, not elsewhere classified; Z79.51 Long term (current) use of inhaled steroids; Z99.81 Dependence on supplemental oxygen; Z87.891 Personal history of nicotine dependence; Z88.8 Allergy status to other drugs, medicaments and biological substances; Z88.9 Allergy status to unspecified drugs, medicaments and biological substances; Z79.52 Long term (current) use of systemic steroids; Z79.899 Other long term (current) drug therapy; Z85.3 Personal history of malignant neoplasm of breast; Z92.21 Personal history of antineoplastic chemotherapy; Z92.3 Personal history of irradiation
CPT/HCPCS: 36415; 36600; 51701; 51798; 70450; 71045; 71250; 72125; 73502; 74176; 80048; 80053; 81001; 82550; 82805; 83605; 84443; 84484; 85025; 85610; 85730; 93005; 93306; 94640; 94760; 96360; 96361; 96372; 99285

== ENCOUNTER 2024-08-15 14:17 | Inpatient (IN) | payer MEDICARE ==
--- NOTE | 2024-08-15 14:51 | ED ---
Fever HPI - General Chief Complaint: Fever Stated Complaint: fever Time Seen by Provider: 08/15/24 14:19 Source: EMS, RN notes reviewed, old records reviewed Mode of arrival: EMS Limitations: no limitations - History of Present Illness Initial Comments: This is a 74-year-old female to the ER for evaluation from [facility] for fever fever and difficulty breathing, patient is unable to provide history MD Complaint: fever, weakness, other (Dyspnea) -: unknown Temperature Source: subjective Context: sick contacts, multiple patients with similar symptoms Associated Symptoms: chills, myalgias, chest pain, shortness of breath, confusion Treatments Prior to Arrival: none - Related Data Home Medications Medication Instructions Recorded Confirmed Ipratropium-Albuterol Nebulize 3 ml INHALATION RT-Q6H PRN 06/25/23 08/15/24 [Duoneb 0.5 mg-3 mg/3 ml Soln] guaiFENesin [Mucinex] 600 mg PO BID 07/21/24 08/15/24 Mometasone/Formoterol [Dulera 200 2 puff INHALATION RT-BID 07/28/24 08/15/24 Mcg-5 Mcg Inhaler] predniSONE 5 mg PO Q2D 07/28/24 08/15/24 predniSONE 10 mg PO Q2D 07/28/24 08/15/24 Acetaminophen [Tylenol 8 Hour] 650 mg PO Q6H PRN 08/15/24 08/15/24 Calcium Carbonate [Tums] 1,000 mg PO Q4HR PRN 08/15/24 08/15/24 Latanoprost [Latanoprost 0.005%] 1 drop BOTH EYES HS 08/15/24 08/15/24 Naloxone HCl 0.4 mg IM DIRECTED PRN 08/15/24 08/15/24 Naloxone HCl [Narcan] 4 mg NASAL DIRECTED PRN 08/15/24 08/15/24 Omeprazole [PriLOSEC] 20 mg PO DAILY 08/15/24 08/15/24 guaiFENesin [guaiFENesin Oral 200 mg PO QID 08/15/24 08/15/24 Solution] traMADol HCl [Ultram] 50 mg PO Q6H PRN 08/15/24 08/15/24 Previous Rx's Medication Instructions Recorded Ipratropium-Albuterol Nebulize 3 ml INHALATION RT-QID each 08/01/24 [Duoneb 0.5 mg-3 mg/3 ml Soln] Mag Hydrox/Al Hydrox/Simeth 15 ml PO Q6HR PRN ml 08/01/24 [Maalox] Metoprolol Tartrate [Lopressor] 25 mg PO BID tab 08/01/24 bisacodyL [Dulcolax] 5 mg PO DAILY PRN tab 08/01/24 predniSONE 10 mg PO DIRECTED #40 tab 08/22/24 Allergies Allergy/AdvReac Type Severity Reaction Status Date / Time budesonide [From Symbicort] AdvReac ANXIETY Verified 08/15/24 16:18 formoterol [From Symbicort] AdvReac ANXIETY Verified 08/15/24 16:18 zolpidem [From Ambien] AdvReac Hallucinati Verified 08/15/24 16:18 ons Review of Systems ROS Statement: Those systems with pertinent positive or pertinent negative responses have been documented in the HPI. ROS Other: All systems not noted in ROS Statement are negative. 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 Right breast cancer 2022 History of Any Multi-Drug Resistant Organisms: None Reported Past Surgical History: Breast Surgery, Hernia Repair, Orthopedic Surgery Additional Past Surgical History / Comment(s): Bilateral carpal tunnel; bilateral cataract removal with lens, bronchoscopy, R inguinal hernia repair, colonoscopy RT BREAST BIOSPY, cancer and the node had chemo and radiation july 2023, colonoscopy Past Anesthesia/Blood Transfusion Reactions: No Reported Reaction Additional Past Anesthesia/Blood Transfusion Reaction / Comment(s): no blood transfusion Past Psychological History: No Psychological Hx Reported Smoking Status: Former smoker Past Alcohol Use History: None Reported Past Drug Use History: None Reported - Past Family History Father Family Medical History: COPD Additional Family Medical History / Comment(s): Father in his 50s of COPD. He was a smoker. Mother Family Medical History: CVA/TIA, Hypertension, Pneumonia Additional Family Medical History / Comment(s): Mother fell at age 85 and fractured her hip. Post op she became HTN and had a stroke and then ended up with pneumonia and . Sister(s) Family Medical History: Cancer Additional Family Medical History / Comment(s): breast General Exam Limitations: no limitations General appearance: alert, in no apparent distress Head exam: Present: atraumatic, normocephalic, normal inspection Eye exam: Present: normal appearance, PERRL, EOMI. Absent: scleral icterus, conjunctival injection, periorbital swelling ENT exam: Present: normal exam, mucous membranes moist Neck exam: Present: normal inspection. Absent: tenderness, meningismus, lymphadenopathy Respiratory exam: Present: normal lung sounds bilaterally. Absent: respiratory distress, wheezes, rales, rhonchi, stridor Cardiovascular Exam: Present: tachycardia, irregular rhythm, normal heart sounds. Absent: systolic murmur, diastolic murmur, rubs, gallop, clicks GI/Abdominal exam: Present: soft, normal bowel sounds. Absent: distended, tenderness, guarding, rebound, rigid Extremities exam: Present: normal inspection, full ROM, normal capillary refill. Absent: tenderness, pedal edema, joint swelling, calf tenderness Back exam: Present: normal inspection Neurological exam: Present: alert, oriented X3, CN II-XII intact Psychiatric exam: Present: normal affect, normal mood Skin exam: Present: warm, dry, intact, normal color. Absent: rash Course Vital Signs 08/15/24 08/15/24 08/15/24 14:18 14:28 15:47 Temperature 102.7 F H Pulse Rate 142 H 116 H Respiratory 18 24 18 Rate Blood Pressure 124/74 110/58 O2 Sat by Pulse 96 96 Oximetry 08/15/24 08/15/24 08/15/24 16:00 16:06 16:09 Temperature Pulse Rate 125 H 118 H 123 H Respiratory 22 24 18 Rate Blood Pressure 123/64 O2 Sat by Pulse 93 L Oximetry 08/15/24 08/15/24 08/15/24 16:55 18:11 19:21 Temperature 98.5 F 97.7 F Pulse Rate 121 H 105 H 107 H Respiratory 24 18 18 Rate Blood Pressure 131/61 106/59 110/62 O2 Sat by Pulse 97 97 98 Oximetry 08/15/24 08/15/24 08/15/24 20:07 20:13 21:40 Temperature Pulse Rate 96 93 95 Respiratory 18 Rate Blood Pressure 116/81 O2 Sat by Pulse 98 Oximetry 08/15/24 08/16/24 08/16/24 23:22 03:00 03:27 Temperature Pulse Rate 81 100 86 Respiratory 18 16 Rate Blood Pressure 108/56 128/65 O2 Sat by Pulse 97 98 Oximetry 08/16/24 08/16/24 08/16/24 03:35 04:00 06:35 Temperature Pulse Rate 86 101 H 86 Respiratory 18 Rate Blood Pressure 139/70 O2 Sat by Pulse 97 Oximetry 08/16/24 08/16/24 08/16/24 06:44 08:43 10:08 Temperature Pulse Rate 97 98 98 Respiratory 24 30 H Rate Blood Pressure 124/87 130/87 O2 Sat by Pulse 99 98 Oximetry 08/16/24 08/16/24 08/16/24 11:11 11:22 12:51 Temperature 97.6 F Pulse Rate 93 90 101 H Respiratory 18 18 16 Rate Blood Pressure 143/79 O2 Sat by Pulse 98 98 Oximetry 08/16/24 08/16/24 08/16/24 15:09 15:19 16:34 Temperature Pulse Rate 93 90 101 H Respiratory 18 18 18 Rate Blood Pressure 163/85 O2 Sat by Pulse 97 Oximetry 08/16/24 08/16/24 08/16/24 19:15 20:06 20:16 Temperature Pulse Rate 108 H 96 116 H Respiratory 20 Rate Blood Pressure O2 Sat by Pulse 96 Oximetry 08/16/24 20:40 Temperature 98.2 F Pulse Rate 112 H Respiratory 20 Rate Blood Pressure 161/84 O2 Sat by Pulse 97 Oximetry - Reevaluation(s) Reevaluation #1: 08/15/24 15:40 Medical records reviewed Most recent inpatient hospitalization is for fall with hip fracture and surgery, patient was not noted to have atrial fibrillation or be on blood thinners at the time Reevaluation #2: 08/15/24 18:33 Patient symptoms improving here in the ER Mental status remains altered unknown baseline Atrial fibrillation rate is much improved I cannot find evidence of prior history of atrial fibrillation Patient fevers improved Blood pressure responding to IV resuscitation Reevaluation #3: 08/15/24 18:34 Informed of results questions answered Reevaluation #4: Was pt. sent in by a medical professional or institution (, PA, RHEUMATOLOGIST, urgent care, hospital, or custodial...) When possible be specific @ -no Did you speak to anyone other than the patient for history (EMS, parent, family, police, friend...)? What history was obtained from this source @ -no Did you review nursing and triage notes (agree or disagree)? Why? @ -agree Are old charts reviewed (outside hosp., previous admission, EMS record, old EKG, old radiological studies, urgent care reports/EKG's, custodial records)? Report findings @ -yes Differential Diagnosis (chest pain, altered mental status, abdominal pain women, abdominal pain men, vaginal bleeding, weakness, fever, dyspnea, syncope, headache, dizziness, GI bleed, back pain, seizure, CVA, palpatations, mental health, musculoskeletal)? @ -prior EKG interpreted by me (3pts min.). @ -yes X-rays interpreted by me (1pt min.). @ -yes negative for acute disease CT interpreted by me (1pt min.). @ -no U/S interpreted by me (1pt. min.). @ -no What testing was considered but not performed or refused? (CT, X-rays, U/S, labs)? Why? @ -none What meds were considered but not given or refused? Why? @ -none Did you discuss the management of the patient with other professionals (professionals i.e. , PA, RHEUMATOLOGIST, lab, RT, psych nurse, social problems specialist, valve inserter, teacher, certified juvenile probation officer, machine adjuster leader case trim)? Give summary @ -no Was smoking cessation discussed for >3mins.? @ -no Was critical care preformed (if so, how long)? @ -yes31 Were there social determinants of health that impacted care today? How? (Homelessness, low income, unemployed, alcoholism, drug addiction, transportation, low edu. Level, literacy, decrease access to med. care, assisted, rehab)? @ -none Was there de-escalation of care discussed even if they declined (Discuss DNR or withdrawal of care, Hospice)? DNR status @ -no What co-morbidities impacted this encounter? (DM, HTN, Smoking, COPD, CAD, Cancer, CVA, ARF, Chemo, Hep., AIDS, mental health diagnosis, sleep apnea, morb id obesity)? @ -none Was patient admitted / discharged? Hospital course, mention meds given and rou te, prescriptions, significant lab abnormalities, going to OR and other pertinent info. @ - 74 female to ER with dyspnea she has severe COPD exacerbation complicated by atrial fibrillation with RVR, no evidence of hemodynamic collapse, blood pressures 18, patient will admit for monitoring of pulse ox as well as control of atrial fibrillation Admitted Undiagnosed new problem with uncertain prognosis? @ -no Drug Therapy requiring intensive monitoring for toxicity (Heparin, Nitro, Insulin, Cardizem)? @ -no Were any procedures done? @ -no Diagnosis/symptom? @ -Atrial fibrillation with RVR severe COPD Acute, or Chronic, or Acute on Chronic? @ -Acute Uncomplicated (without systemic symptoms) or Complicated (systemic symptoms)? @ -Complicated Side effects of treatment? @ -no Exacerbation, Progression, or Severe Exacerbation? @ -exacerbation Poses a threat to life or bodily function? How? (Chest pain, [place], [place], pneumonia, PE, COPD, DKA, ARF, appy, cholecystitis, CVA, Diverticulitis, Homicidal, Suicidal, threat to staff... and all critical care pts) @ -yes extremes of age with arrhythmia Reevaluation #5: Differential Dyspnea: Coronary syndrome, arrhythmia, tamponade, asthma, COPD, pulmonary embolism, pneumonia, pneumothorax, pulmonary effusion, anaphylaxis, diabetic ketoacidosis, flailed chest, pulmonary contusion, diaphragmatic rupture, anemia, neuro muscular, this is not meant to be an all-inclusive list. Differential Fever: Pneumonia, viral URI, endocarditis, myocarditis, pericarditis, otitis, sinusitis, peritonsillar Abscess, retropharyngeal Abscess, epiglottitis, peritonitis, appendicitis, Bobbi cystitis, diverticulitis, hepatitis, colitis, UTI, PID, TOA, pyelonephritis, prostatitis, epididymitis, meningitis, encephalitis, pulmonary embolism, CVA, thyroid storm, pancreatitis, adrenal crisis, cavernous sinus thrombosis, this is not meant to be an all-inclusive list. - Consultations Consultation #1: Spoke with Dr. Garcia who agrees admit this patient Medical Decision Making - Medical Decision Making 74 female to ER with dyspnea she has severe COPD exacerbation complicated by atrial fibrillation with RVR, no evidence of hemodynamic collapse, blood pressures 18, patient will admit for monitoring of pulse ox as well as control of atrial fibrillation - Lab Data Result diagrams: 08/22/24 06:46 08/22/24 06:46 Lab Results 08/15/24 08/15/24 08/15/24 Range/Units 15:01 15:01 15:01 WBC (3.8-10.6) k/uL RBC (3.80-5.40) m/uL Hgb (11.4-16.0) gm/dL Hct (34.0-46.0) % MCV (80.0-100.0) fL MCH (25.0-35.0) pg MCHC (31.0-37.0) g/dL RDW (11.5-15.5) % Plt Count (150-450) k/uL MPV Neutrophils % % Lymphocytes % % Monocytes % % Eosinophils % % Basophils % % Neutrophils # (1.3-7.7) k/uL Lymphocytes # (1.0-4.8) k/uL Monocytes # (0-1.0) k/uL Eosinophils # (0-0.7) k/uL Basophils # (0-0.2) k/uL PT 11.9 (10.0-12.5) sec INR 1.1 (<1.2) APTT 23.2 (22.0-30.0) sec Sodium 128 L (137-145) mmol/L Potassium 4.1 (3.5-5.1) mmol/L Chloride 93 L (98-107) mmol/L Carbon Dioxide 25 (22-30) mmol/L Anion Gap 10 mmol/L BUN 20 H (7-17) mg/dL Creatinine 0.74 (0.52-1.04) mg/dL Est GFR (CKD-EPI)AfAm >90 (>60 ml/min/1.73 sqM) Est GFR (CKD-EPI)NonAf 81 (>60 ml/min/1.73 sqM) Glucose 139 H (74-99) mg/dL Plasma Lactic Acid Jer 1.9 (0.7-2.0) mmol/L Calcium 8.9 (8.4-10.2) mg/dL Phosphorus 3.9 (2.5-4.5) mg/dL Magnesium 1.8 (1.6-2.3) mg/dL Total Bilirubin 0.6 (0.2-1.3) mg/dL AST 36 (14-36) U/L ALT 21 (4-34) U/L Alkaline Phosphatase 150 H (38-126) U/L Troponin I (0.000-0.034) ng/mL NT-Pro-B Natriuret Pep 1480 pg/mL Total Protein 5.8 L (6.3-8.2) g/dL Albumin 3.2 L (3.5-5.0) g/dL 08/15/24 08/15/24 Range/Units 15:01 15:02 WBC 9.3 (3.8-10.6) k/uL RBC 4.24 (3.80-5.40) m/uL Hgb 12.7 (11.4-16.0) gm/dL Hct 39.0 (34.0-46.0) % MCV 92.0 (80.0-100.0) fL MCH 29.8 (25.0-35.0) pg MCHC 32.4 (31.0-37.0) g/dL RDW 14.0 (11.5-15.5) % Plt Count 280 (150-450) k/uL MPV 7.0 Neutrophils % 91 % Lymphocytes % 4 % Monocytes % 4 % Eosinophils % 0 % Basophils % 0 % Neutrophils # 8.5 H (1.3-7.7) k/uL Lymphocytes # 0.3 L (1.0-4.8) k/uL Monocytes # 0.4 (0-1.0) k/uL Eosinophils # 0.0 (0-0.7) k/uL Basophils # 0.0 (0-0.2) k/uL PT (10.0-12.5) sec INR (<1.2) APTT (22.0-30.0) sec Sodium (137-145) mmol/L Potassium (3.5-5.1) mmol/L Chloride (98-107) mmol/L Carbon Dioxide (22-30) mmol/L Anion Gap mmol/L BUN (7-17) mg/dL Creatinine (0.52-1.04) mg/dL Est GFR (CKD-EPI)AfAm (>60 ml/min/1.73 sqM) Est GFR (CKD-EPI)NonAf (>60 ml/min/1.73 sqM) Glucose (74-99) mg/dL Plasma Lactic Acid Jer (0.7-2.0) mmol/L Calcium (8.4-10.2) mg/dL Phosphorus (2.5-4.5) mg/dL Magnesium (1.6-2.3) mg/dL Total Bilirubin (0.2-1.3) mg/dL AST (14-36) U/L ALT (4-34) U/L Alkaline Phosphatase (38-126) U/L Troponin I 0.043 H* (0.000-0.034) ng/mL NT-Pro-B Natriuret Pep pg/mL Total Protein (6.3-8.2) g/dL Albumin (3.5-5.0) g/dL - EKG Data -: EKG Interpreted by Me (EKG is a flutter 141 QRS 76 QTc 355) Critical Care Time Critical Care Time: Yes Total Critical Care Time: 31 Disposition Clinical Impression: Fever, COPD exacerbation, COPD (chronic obstructive pulmonary disease), Weakness, Acute exacerbation of chronic obstructive airways disease, Atrial fibrillation with rapid ventricular response Disposition: ADMITTED IP TO THIS HOSP Condition: Serious Is patient prescribed a controlled substance at d/c from ED?: No Time of Disposition: 18:00
[2024-08-15 15:09] LABS: Basophils % (A) 0 %; Eosinophils % (A) 0 %; HGB 12.7 gm/dL (11.4-16.0); Lymphocytes # (A) 0.3 k/uL (1.0-4.8); Lymphocytes % (A) 4 %; MCH 29.8 pg (25.0-35.0); MCHC 32.4 g/dL (31.0-37.0); Monocytes # (A) 0.4 k/uL (0-1.0); Monocytes % (A) 4 %; Neutrophils # (A) 8.5 k/uL (1.3-7.7); Neutrophils % (A) 91 %; Platelet Count 280 k/uL (150-450); RBC 4.24 m/uL (3.80-5.40); WBC 9.3 k/uL (3.8-10.6)
[2024-08-15 15:15] LABS: ALT 21 U/L (4-34); AST 36 U/L (14-36); African American GFR (CKD) >90 (>60 ml/min/1.73 sqM); Albumin 3.2 g/dL (3.5-5.0); Alkaline Phosphatase 150 U/L (38-126); Anion Gap 10 mmol/L; Blood Urea Nitrogen 20 mg/dL (7-17); Calcium 8.9 mg/dL (8.4-10.2); Carbon Dioxide 25 mmol/L (22-30); Chloride 93 mmol/L (98-107); Glucose 139 mg/dL (74-99); Magnesium 1.8 mg/dL (1.6-2.3); Non-African American GFR(CKD) 81 (>60 ml/min/1.73 sqM); Phosphorus 3.9 mg/dL (2.5-4.5); Potassium 4.1 mmol/L (3.5-5.1); Sodium 128 mmol/L (137-145); Total Bilirubin 0.6 mg/dL (0.2-1.3); Total Protein 5.8 g/dL (6.3-8.2)
[2024-08-15 15:20] LABS: INR 1.1 (<1.2); Partial Thromboplastin Time 23.2 sec (22.0-30.0); Prothrombin Time 11.9 sec (10.0-12.5)
[2024-08-15 15:23] LABS: NT-Pro-B-Type Natriuretic Pept 1480 pg/mL
--- NOTE | 2024-08-15 15:28 | XR ---
EXAMINATION TYPE: XR chest 2V DATE OF EXAM: 08/15/2024 3:15 PM COMPARISON: Chest radiographs from 08/27/2024 CLINICAL INDICATION: Female, 74 years old with history of Weakness; [facility] TECHNIQUE: XR chest 2V Frontal and lateral views of the chest. FINDINGS: Lungs/Pleura: There is flattening of the diaphragm with increased lucency of the lungs. No evidence o f pneumothorax, pleural effusion or focal consolidation. Pulmonary vascularity: Unremarkable. Heart/mediastinum: Cardiomediastinal silhouette is unremarkable. Musculoskeletal: No acute osseous pathology. Other findings: None Lines/Tubes: IMPRESSION: 1. No acute cardiopulmonary disease process. 2. COPD changes. [facility], , 08/15/2024 3:26 PM
[2024-08-15] MEDS: LACTATED RINGERS 1,000 ML IV ONE ×2 (15:40→17:45)
[2024-08-15] MEDS: LACTATED RINGERS 1,000 ML IV SCH (15:41)
[2024-08-15] MEDS: ACETAMINOPHEN IV (For NPO) 1,000 MG in EMPTY BAG 1 BAG IVPB STA (15:42)
[2024-08-15] MEDS: DILTIAZEM 125 MG in SODIUM CHLORIDE 0.9% 100 ML IV SCH (15:42)
[2024-08-15] MEDS: IBUPROFEN IV 800 MG in SODIUM CHLORIDE 0.9% 250 ML IV ONE (15:42)
[2024-08-15] MEDS: DILTIAZEM DRIP BOLUS FROM BAG 1 MG SOLN IV ONE ×2 (15:43→17:08)
[2024-08-15] MEDS: IPRATROPIUM-ALBUTEROL 3 ML NEB INHALATION STA ×2 (16:00→20:05)
[2024-08-15] MEDS ORDERED: MORPHINE SULFATE 4 MG/ML SYRINGE IV PRN (18:29)
[2024-08-15] MEDS ORDERED: NALOXONE 0.4 MG/ML 1 ML VIAL IV PRN (18:29)
[2024-08-15] MEDS ORDERED: ONDANSETRON 4 MG/2 ML VIAL IVP PRN (18:29)
[2024-08-15] MEDS: cefTRIAXone IN SWFI 1,000 MG/10 ML SYRINGE IVP STA (18:30)
[2024-08-15] MEDS ORDERED: HEPARIN SODIUM 1,000 UN/ML (10ML VL) IV PRN (18:32)
[2024-08-15] MEDS: SODIUM CHLORIDE 0.9% 1,000 ML IV SCH (18:43)
[2024-08-15] MEDS: PANTOPRAZOLE 40 MG/10 ML VIAL IV SCH (18:45)
[2024-08-15] MEDS: methylPREDNISolone SOD SUCCI 125 MG/2 ML VIAL IV STA (18:45)
[2024-08-15] MEDS: HEPARIN SODIUM 1,000 UN/ML (10ML VL) IV ONE (18:54)
[2024-08-15] MEDS: HEPARIN SOD,PORK IN 0.45% NACL 25,000 UNIT in 0.45% NACL 1 250ML.BAG IV SCH (18:55)
[2024-08-15] MEDS ORDERED: bisacodyL 5 MG TABLET.DR PO PRN (22:28)
[2024-08-15] MEDS ORDERED: CALCIUM CARBONATE 500 MG CHEWABLE PO PRN (22:28)
[2024-08-15] MEDS: LATANOPROST 0.005% OPHTH DROPS 2.5 ML BTL BOTH EYES SCH (23:18)
[2024-08-15] MEDS: guaiFENesin 600 MG TABLET.ER PO SCH (23:21)
[2024-08-15] MEDS: methylPREDNISolone SOD SUCCI 125 MG/2 ML VIAL IV SCH (23:56)
[2024-08-16] MEDS: ALBUTEROL NEBULIZED 2.5 MG/3 ML INHALATION PRN (03:26)
[2024-08-16] MEDS: IPRATROPIUM-ALBUTEROL 3 ML NEB INHALATION SCH (06:33)
[2024-08-16] MEDS: SYMBICORT 160-4.5 MCG INHALER INHALATION SCH (06:33)
[2024-08-16 07:03] LABS: Basophils % (A) 0 %; Eosinophils % (A) 0 %; HCT 36.2 % (34.0-46.0); HGB 11.8 gm/dL (11.4-16.0); Lymphocytes # (A) 0.2 k/uL (1.0-4.8); Lymphocytes % (A) 3 %; MCH 30.6 pg (25.0-35.0); MCHC 32.7 g/dL (31.0-37.0); MCV 93.7 fL (80.0-100.0); Monocytes # (A) 0.1 k/uL (0-1.0); Monocytes % (A) 2 %; Neutrophils # (A) 4.9 k/uL (1.3-7.7); Neutrophils % (A) 94 %; Platelet Count 271 k/uL (150-450); RBC 3.87 m/uL (3.80-5.40); WBC 5.2 k/uL (3.8-10.6)
[2024-08-16 07:13] LABS: ALT 19 U/L (4-34); AST 28 U/L (14-36); African American GFR (CKD) >90 (>60 ml/min/1.73 sqM); Alkaline Phosphatase 134 U/L (38-126); Anion Gap 8 mmol/L; Blood Urea Nitrogen 16 mg/dL (7-17); Carbon Dioxide 26 mmol/L (22-30); Chloride 100 mmol/L (98-107); Glucose 156 mg/dL (74-99); Magnesium 1.8 mg/dL (1.6-2.3); Non-African American GFR(CKD) >90 (>60 ml/min/1.73 sqM); Potassium 3.9 mmol/L (3.5-5.1); Sodium 134 mmol/L (137-145); Total Bilirubin 0.4 mg/dL (0.2-1.3); Total Protein 5.8 g/dL (6.3-8.2)
[2024-08-16] MEDS: PANTOPRAZOLE 40 MG TABLET PO SCH (09:46)
[2024-08-16] MEDS: SULFAMETHOX-TMP 800-160MG 1 EACH TAB PO SCH (09:46)
--- NOTE | 2024-08-16 12:20 | P.CRDCN ---
History of Present Illness History of present illness: HISTORY OF PRESENT ILLNESS: This is a 74-year-old female with a past medical history significant for breast cancer and hyperlipidemia. Patient follows in the office with Dr. Miles. We gates ve been asked to see the patient in consultation for a-fib. Patient examined at the bedside. Patient presented to the hospital from [facility] due to shortness of breath and fever. An EKG was completed with the patient presented to the hospital which was thought to be atrial fibrillation. Patient was started on IV heparin and IV Cardizem. However upon review of EKG and bedside telemetry, patient is maintaining sinus mechanism without evidence of atrial fibrillation. DIAGNOSTICS: - EKG reveals sinus tachycardia with no signs of acute ischemia - Chest xray negative for acute process. COPD changes.. - Laboratory data: WBC 5.2. Hemoglobin 11.8. Platelet count 271. Sodium 134. Potassium 3.9. BUN 16. Creatinine 0.53. Lactic acid 1.9. Troponin 0.043. 0.043. 0.024. proBNP 1480. - Current home cardiac medications include metoprolol titrate 25 mg twice a day - Most recent echocardiogram obtained in December 2022 revealing normal EF, mild TR, mild MR, mild to moderate AR -Patient underwent Lexiscan stress test in 2017 which was negative for ischemia REVIEW OF SYSTEMS: At the time of my exam: CONSTITUTIONAL: Denies fever or chills. HEENT: Denies blurred vision, vision changes, or eye pain. Denies hemoptysis CARDIOVASCULAR: Denies chest pain. Denies orthopnea. Denies PND. Denies pa lpitations RESPIRATORY: Denies shortness of breath. GASTROINTESTINAL: Denies abdominal pain. Denies nausea or vomiting. HEMATOLOGIC: Denies bleeding disorders. GENITOURINARY: Denies any blood in urine. SKIN: Denies pruitis. Denies rash. PHYSICAL EXAM: VITAL SIGNS: Reviewed. GENERAL: Well-developed in no acute distress. HEENT: Head is normocephalic. Pupils are equal, round. Sclerae anicteric. Mucous membranes of the mouth are moist. Neck supple. No JVD or thyromegaly LUNGS: Respirations even and unlabored. Lungs essentially clear to auscultation bilaterally. HEART: Regular rate and rhythm. S1 and S2 heard. ABDOMEN: Soft. Nondistended. Nontender. EXTREMITIES: Normal range of motion. No clubbing or cyanosis. Peripheral pulses intact. No lower extremity edema NEUROLOGIC: Awake and alert. Oriented x 3. ASSESSMENT: Shortness of breath Fever Sinus tachycardia Atrial fibrillation, ruled out, EKG and bedside telemetry reveal sinus mechanism History of COPD History of breast cancer History of hyperlipidemia PLAN: EKG and bedside telemetry reveal sinus mechanism with no evidence of atrial fibrillation Discontinue IV heparin Discontinue IV Cardizem No further inpatient recommendations from a cardiac standpoint We will sign off. Please reconsult if needed. Nurse practitioner note has been reviewed by physician. Signing provider agrees with the documented findings, assessment, and plan of care documented by SOFTWARE SUPPORT REPRESENTATIVE as a scribe. 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 Right breast cancer 2022 History of Any Multi-Drug Resistant Organisms: None Reported Past Surgical History: Breast Surgery, Hernia Repair, Orthopedic Surgery Additional Past Surgical History / Comment(s): Bilateral carpal tunnel; bilateral cataract removal with lens, bronchoscopy, R inguinal hernia repair, colonoscopy RT BREAST BIOSPY, cancer and the node had chemo and radiation july 2023, colonoscopy Past Anesthesia/Blood Transfusion Reactions: No Reported Reaction Additional Past Anesthesia/Blood Transfusion Reaction / Comment(s): no blood transfusion Past Psychological History: No Psychological Hx Reported Smoking Status: Former smoker Past Alcohol Use History: None Reported Past Drug Use History: None Reported - Past Family History Father Family Medical History: COPD Additional Family Medical History / Comment(s): Father in his 50s of COPD. He was a smoker. Mother Family Medical History: CVA/TIA, Hypertension, Pneumonia Additional Family Medical History / Comment(s): Mother fell at age 85 and fractured her hip. Post op she became HTN and had a stroke and then ended up with pneumonia and . Sister(s) Family Medical History: Cancer Additional Family Medical History / Comment(s): breast Medications and Allergies Home Medications Medication Instructions Recorded Confirmed Type Ipratropium-Albuterol Nebulize 3 ml INHALATION RT-Q6H PRN 06/25/23 08/15/24 His tory [Duoneb 0.5 mg-3 mg/3 ml Soln] guaiFENesin [Mucinex] 600 mg PO BID 07/21/24 08/15/24 History Mometasone/Formoterol [Dulera 200 2 puff INHALATION RT-BID 07/28/24 08/15/24 History Mcg-5 Mcg Inhaler] predniSONE 5 mg PO Q2D 07/28/24 08/15/24 History predniSONE 10 mg PO Q2D 07/28/24 08/15/24 History Ipratropium-Albuterol Nebulize 3 ml INHALATION RT-QID each 08/01/24 08/15/24 Rx [Duoneb 0.5 mg-3 mg/3 ml Soln] Mag Hydrox/Al Hydrox/Simeth 15 ml PO Q6HR PRN ml 08/01/24 08/15/24 Rx [Maalox] Metoprolol Tartrate [Lopressor] 25 mg PO BID tab 08/01/24 08/15/24 Rx bisacodyL [Dulcolax] 5 mg PO DAILY PRN tab 08/01/24 08/15/24 Rx Acetaminophen [Tylenol 8 Hour] 650 mg PO Q6H PRN 08/15/24 08/15/24 History Calcium Carbonate [Tums] 1,000 mg PO Q4HR PRN 08/15/24 08/15/24 History Latanoprost [Latanoprost 0.005%] 1 drop BOTH EYES HS 08/15/24 08/15/24 History Naloxone HCl 0.4 mg IM DIRECTED PRN 08/15/24 08/15/24 History Naloxone HCl [Narcan] 4 mg NASAL DIRECTED PRN 08/15/24 08/15/24 History Omeprazole [PriLOSEC] 20 mg PO DAILY 08/15/24 08/15/24 History guaiFENesin [guaiFENesin Oral 200 mg PO QID 08/15/24 08/15/24 History Solution] traMADol HCl [Ultram] 50 mg PO Q6H PRN 08/15/24 08/15/24 History Allergies Allergy/AdvReac Type Severity Reaction Status Date / Time budesonide [From Symbicort] AdvReac ANXIETY Verified 08/15/24 16:18 formoterol [From Symbicort] AdvReac ANXIETY Verified 08/15/24 16:18 zolpidem [From Ambien] AdvReac Hallucinati Verified 08/15/24 16:18 ons Physical Exam Vitals: Vital Signs Temp Pulse Resp BP Pulse Ox 08/16/24 11:22 90 18 08/16/24 11:11 93 18 98 08/16/24 10:08 98 30 H 130/87 98 08/16/24 08:43 98 24 124/87 99 08/16/24 06:44 97 08/16/24 06:35 86 08/16/24 04:00 101 H 18 139/70 97 08/16/24 03:35 86 08/16/24 03:27 86 08/16/24 03:00 100 16 128/65 98 08/15/24 23:22 81 18 108/56 97 08/15/24 21:40 95 18 116/81 98 08/15/24 20:13 93 08/15/24 20:07 96 08/15/24 19:21 97.7 F 107 H 18 110/62 98 08/15/24 18:11 105 H 18 106/59 97 08/15/24 16:55 98.5 F 121 H 24 131/61 97 08/15/24 16:09 123 H 18 08/15/24 16:06 118 H 24 123/64 93 L 08/15/24 16:00 125 H 22 08/15/24 15:47 116 H 18 110/58 96 08/15/24 14:28 24 08/15/24 14:18 102.7 F H 142 H 18 124/74 96 Intake and Output 08/15/24 08/16/24 08/16/24 22:59 06:59 14:59 Intake Total 36.333 119.660 Balance 36.333 119.660 Intake: Intake, IV Titration 36.333 119.660 Amount Diltiazem 125 mg In 36.333 38.083 Sodium Chloride 0.9% 100 ml @ 10 MG/HR 10 mls/hr IV .[id number] [facility] Rx#: [id number] Heparin Sod,Pork in 0.45% 81.577 NaCl 25,000 unit In 0.45 % NaCl 1 250ml.bag @ 12 UNITS/KG/HR 8.981 mls/hr IV .Q24H [facility] Rx#: [id number] Results 08/16/24 06:35 08/16/24 06:35 Cardiac Enzymes 08/15/24 08/15/24 08/15/24 Range/Units 15:01 15:01 20:36 AST 36 (14-36) U/L Troponin I 0.043 H* 0.043 H* (0.000-0.034) ng/mL 08/16/24 08/16/24 Range/Units 01:18 06:35 AST 28 (14-36) U/L Troponin I 0.024 (0.000-0.034) ng/mL Coagulation 08/15/24 08/16/24 Range/Units 15:01 01:18 PT 11.9 (10.0-12.5) sec APTT 23.2 161.3 H* (22.0-30.0) sec CBC 08/15/24 08/16/24 Range/Units 15:02 06:35 WBC 9.3 5.2 (3.8-10.6) k/uL RBC 4.24 3.87 (3.80-5.40) m/uL Hgb 12.7 11.8 (11.4-16.0) gm/dL Hct 39.0 36.2 (34.0-46.0) % Plt Count 280 271 (150-450) k/uL Comprehensive Metabolic Panel 08/15/24 08/16/24 Range/Units 15:01 06:35 Sodium 128 L 134 L (137-145) mmol/L Potassium 4.1 3.9 (3.5-5.1) mmol/L Chloride 93 L 100 (98-107) mmol/L Carbon Dioxide 25 26 (22-30) mmol/L BUN 20 H 16 (7-17) mg/dL Creatinine 0.74 0.53 (0.52-1.04) mg/dL Glucose 139 H 156 H (74-99) mg/dL Calcium 8.9 9.0 (8.4-10.2) mg/dL AST 36 28 (14-36) U/L ALT 21 19 (4-34) U/L Alkaline Phosphatase 150 H 134 H (38-126) U/L Total Protein 5.8 L 5.8 L (6.3-8.2) g/dL Albumin 3.2 L 3.0 L (3.5-5.0) g/dL Current Medications Generic Name Dose Route Start Last Admin Trade Name Freq PRN Reason Stop Dose Admin Acetaminophen 650 mg 08/15/24 22:28 Acetaminophen Tab 325 Mg Tab PO Q6H PRN Pain Albuterol Sulfate 2.5 mg 08/15/24 18:31 08/16/24 03:26 Albuterol Nebulized 2.5 Mg/3 Ml INHALATION 2.5 mg RT-TID PRN Administration Shortness Of Breath Or Wheezing Albuterol/Ipratropium 3 ml 08/16/24 08:00 08/16/24 11:11 Ipratropium-Albuterol 3 Ml Neb INHALATION 3 ml RT-QID [facility] Administration Bisacodyl 5 mg 08/15/24 22:28 Bisacodyl 5 Mg Tablet.Dr PO DAILY PRN Constipation Budesonide/Formoterol Fumarate 2 puff 08/16/24 08:00 08/16/24 06:43 Symbicort 160-4.5 Mcg Inhaler INHALATION Not Given RT-BID [facility] Calcium Carbonate/Glycine 1,000 mg 08/15/24 22:28 Calcium Carbonate 500 Mg Chewable PO Q4HR PRN GERD Guaifenesin 600 mg 08/15/24 22:30 08/16/24 09:46 Guaifenesin 600 Mg Tablet.Er PO 600 mg BID [facility] Administration Heparin Sodium (Porcine) 0 unit 08/15/24 18:32 Heparin Sodium 1,000 Un/Ml (10ml Vl) IV PER PROTOCOL PRN Low PTT Protocol Lactated Ringer's 1,000 mls @ 130 mls/hr 08/15/24 15:00 08/16/24 05:58 Lactated Ringers IV Not Given .Q7H42M [facility] Latanoprost 1 drops 08/15/24 22:30 08/15/24 23:18 Latanoprost 0.005% Ophth Drops 2.5 Ml Btl BOTH EYES 1 drops HS [facility] Administration Methylprednisolone Sodium Succinate 60 mg 08/16/24 00:00 08/16/24 06:56 Methylprednisolone Sod Succi 125 Mg/2 Ml Vial IV 60 mg Q6HR [facility] Administration Morphine Sulfate 4 mg 08/15/24 18:29 Morphine Sulfate 4 Mg/Ml Syringe IV Q4HR PRN Severe Pain (Scale 7 to 10) Naloxone HCl 0.2 mg 08/15/24 18:29 Naloxone 0.4 Mg/Ml 1 Ml Vial IV Q2M PRN Opioid Reversal Ondansetron HCl 4 mg 08/15/24 18:29 Ondansetron 4 Mg/2 Ml Vial IVP Q8HR PRN Nausea And Vomiting Pantoprazole Sodium 40 mg 08/16/24 07:30 08/16/24 09:46 Pantoprazole 40 Mg Tablet PO 40 mg [id number] [facility] Administration Tramadol HCl 50 mg 08/15/24 22:28 Tramadol 50 Mg Tab PO Q6H PRN Pain Trimethoprim/Sulfamethoxazole 1 each 08/16/24 09:45 08/16/24 09:46 Sulfamethox-Tmp 800-160mg 1 Each Tab PO 1 each BID [facility] Administration Protocol Intake and Output 08/15/24 08/16/24 08/16/24 22:59 06:59 14:59 Intake Total 36.333 119.660 Balance 36.333 119.660 Intake: Intake, IV Titration 36.333 119.660 Amount Diltiazem 125 mg In 36.333 38.083 Sodium Chloride 0.9% 100 ml @ 10 MG/HR 10 mls/hr IV .[id number] [facility] Rx#: [id number] Heparin Sod,Pork in 0.45% 81.577 NaCl 25,000 unit In 0.45 % NaCl 1 250ml.bag @ 12 UNITS/KG/HR 8.981 mls/hr IV .Q24H [facility] Rx#: [id number] 08/16/24 06:35 08/16/24 06:35
[2024-08-16 15:03] LABS: Influenza A Detected (Not Detectd); Influenza B Not Detected (Not Detectd); RSV Not Detected (Not Detectd)
--- NOTE | 2024-08-16 16:58 | P.CNPUL ---
History of Present Illness Consult date: 08/16/24 Requesting physician: Deonte Nolen Reason for consult: dyspnea Chief complaint: Shortness of breath and fever History of present illness: This is a 74-year-old female patient with a history of COPD, former smoker, stenotrophomonas pneumonia, hypertension, hyperlipidemia, right breast cancer [facility] post 3 and chemoradiation. She was recently here less than 1 month ago after sustaining a fall a COPD exacerbation. Discharged to an extended care facility on August 01, 2024. They brought her back to the emergency room yesterday after finding her to have a fever and shortness of breath. The patient herself is somewhat of a poor historian and not clear as to why she was here. Her is at the bedside and provides most of the information. X- ray revealed no acute cardiopulmonary process. There is evidence of COPD. She was also noted to have a brief episode of atrial fibrillation with rapid ventricular response versus atrial tachycardia. She was initially on a Cardizem drip and a heparin drip. Seen by cardiology. She did have a temperature of 102.7. White count 5.2. Hemoglobin 11.8. Platelets 271. Sodium 134. Potassium 3.9. Bicarb 26. BUN 16. Creatinine 0.53. Glucose 156. She did test positive for influenza A. 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 Right breast cancer 2022 History of Any Multi-Drug Resistant Organisms: None Reported Past Surgical History: Breast Surgery, Hernia Repair, Orthopedic Surgery Additional Past Surgical History / Comment(s): Bilateral carpal tunnel; bilateral cataract removal with lens, bronchoscopy, R inguinal hernia repair, colonoscopy RT BREAST BIOSPY, cancer and the node had chemo and radiation july 2023, colonoscopy Past Anesthesia/Blood Transfusion Reactions: No Reported Reaction Additional Past Anesthesia/Blood Transfusion Reaction / Comment(s): no blood transfusion Past Psychological History: No Psychological Hx Reported Smoking Status: Former smoker Past Alcohol Use History: None Reported Past Drug Use History: None Reported - Past Family History Father Family Medical History: COPD Additional Family Medical History / Comment(s): Father in his 50s of COPD. He was a smoker. Mother Family Medical History: CVA/TIA, Hypertension, Pneumonia Additional Family Medical History / Comment(s): Mother fell at age 85 and fractured her hip. Post op she became HTN and had a stroke and then ended up with pneumonia and . Sister(s) Family Medical History: Cancer Additional Family Medical History / Comment(s): breast Medications and Allergies Home Medications Medication Instructions Recorded Confirmed Type Ipratropium-Albuterol Nebulize 3 ml INHALATION RT-Q6H PRN 06/25/23 08/15/24 History [Duoneb 0.5 mg-3 mg/3 ml Soln] guaiFENesin [Mucinex] 600 mg PO BID 07/21/24 08/15/24 History Mometasone/Formoterol [Dulera 200 2 puff INHALATION RT-BID 07/28/24 08/15/24 History Mcg-5 Mcg Inhaler] predniSONE 5 mg PO Q2D 07/28/24 08/15/24 History predniSONE 10 mg PO Q2D 07/28/24 08/15/24 History Ipratropium-Albuterol Nebulize 3 ml INHALATION RT-QID each 08/01/24 08/15/24 Rx [Duoneb 0.5 mg-3 mg/3 ml Soln] Mag Hydrox/Al Hydrox/Simeth 15 ml PO Q6HR PRN ml 08/01/24 08/15/24 Rx [Maalox] Metoprolol Tartrate [Lopressor] 25 mg PO BID tab 08/01/24 08/15/24 Rx bisacodyL [Dulcolax] 5 mg PO DAILY PRN tab 08/01/24 08/15/24 Rx Acetaminophen [Tylenol 8 Hour] 650 mg PO Q6H PRN 08/15/24 08/15/24 History Calcium Carbonate [Tums] 1,000 mg PO Q4HR PRN 08/15/24 08/15/24 History Latanoprost [Latanoprost 0.005%] 1 drop BOTH EYES HS 08/15/24 08/15/24 History Naloxone HCl 0.4 mg IM DIRECTED PRN 08/15/24 08/15/24 History Naloxone HCl [Narcan] 4 mg NASAL DIRECTED PRN 08/15/24 08/15/24 History Omeprazole [PriLOSEC] 20 mg PO DAILY 08/15/24 08/15/24 History guaiFENesin [guaiFENesin Oral 200 mg PO QID 08/15/24 08/15/24 History Solution] traMADol HCl [Ultram] 50 mg PO Q6H PRN 08/15/24 08/15/24 History Allergies Allergy/AdvReac Type Severity Reaction Status Date / Time budesonide [From Symbicort] AdvReac ANXIETY Verified 08/15/24 16:18 formoterol [From Symbicort] AdvReac ANXIETY Verified 08/15/24 16:18 zolpidem [From Ambien] AdvReac Hallucinati Verified 08/15/24 16:18 ons Physical Exam Vitals: Vital Signs Temp Pulse Resp BP Pulse Ox 08/16/24 16:34 101 H 18 163/85 97 08/16/24 15:19 90 18 08/16/24 15:09 93 18 08/16/24 12:51 97.6 F 101 H 16 143/79 98 08/16/24 11:22 90 18 08/16/24 11:11 93 18 98 08/16/24 10:08 98 30 H 130/87 98 08/16/24 08:43 98 24 124/87 99 08/16/24 06:44 97 08/16/24 06:35 86 08/16/24 04:00 101 H 18 139/70 97 08/16/24 03:35 86 08/16/24 03:27 86 08/16/24 03:00 100 16 128/65 98 08/15/24 23:22 81 18 108/56 97 08/15/24 21:40 95 18 116/81 98 08/15/24 20:13 93 08/15/24 20:07 96 08/15/24 19:21 97.7 F 107 H 18 110/62 98 08/15/24 18:11 105 H 18 106/59 97 08/15/24 16:55 98.5 F 121 H 24 131/61 97 Intake and Output 08/16/24 08/16/24 08/16/24 06:59 14:59 22:59 Intake Total 119.660 Balance 119.660 Intake: Intake, IV Titration 119.660 Amount Diltiazem 125 mg In 38.083 Sodium Chloride 0.9% 100 ml @ 10 MG/HR 10 mls/hr IV .[id number] [facility] Rx#: [id number] Heparin Sod,Pork in 0.45% 81.577 NaCl 25,000 unit In 0.45 % NaCl 1 250ml.bag @ 12 UNITS/KG/HR 8.981 mls/hr IV .Q24H [facility] Rx#: [id number] GENERAL EXAM: Alert, confused 74-year-old female, on 2 L nasal cannula, comfortable in no apparent distress. HEAD: Normocephalic. EYES: Normal reaction of pupils, equal size. NOSE: Clear with pink turbinates. THROAT: No erythema or exudates. NECK: No masses, no JVD. CHEST: No chest wall deformity. LUNGS: Equal air entry with no crackles, wheeze, rhonchi or dullness. CVS: S1 and S2 normal with no audible murmur, regular rhythm. ABDOMEN: No hepatosplenomegaly, normal bowel sounds, no guarding or rigidity. SPINE: No scoliosis or deformity SKIN: No rashes CENTRAL NERVOUS SYSTEM: No focal deficits, tone is normal in all 4 extremities. EXTREMITIES: There is no peripheral edema. No clubbing, no cyanosis. Peripheral pulses are intact. Results - Laboratory Findings CBC and BMP: 08/16/24 06:35 08/16/24 06:35 PT/INR, D-dimer PT 11.9 sec (10.0-12.5) 08/15/24 15:01 INR 1.1 (<1.2) 08/15/24 15:01 Abnormal lab findings: Abnormal Labs 08/15/24 08/15/24 08/15/24 15:01 15:01 15:02 Neutrophils # 8.5 H Lymphocytes # 0.3 L APTT Sodium 128 L Chloride 93 L BUN 20 H Glucose 139 H Alkaline Phosphatase 150 H Troponin I 0.043 H* Total Protein 5.8 L Albumin 3.2 L Influenza Type A (PCR) 08/15/24 08/16/24 08/16/24 20:36 01:18 06:35 Neutrophils # Lymphocytes # 0.2 L APTT 161.3 H* Sodium Chloride BUN Glucose Alkaline Phosphatase Troponin I 0.043 H* Total Protein Albumin Influenza Type A (PCR) 08/16/24 08/16/24 08/16/24 06:35 10:50 14:14 Neutrophils # Lymphocytes # APTT 50.7 H Sodium 134 L Chloride BUN Glucose 156 H Alkaline Phosphatase 134 H Troponin I Total Protein 5.8 L Albumin 3.0 L Influenza Type A (PCR) Detected A - Diagnostic Findings Chest x-ray: image reviewed Assessment and Plan Assessment: Febrile illness secondary to acute influenza A infection. Chest x-ray shows no acute cardiopulmonary process Acute influenza A infection Acute exacerbation of chronic obstructive pulmonary disease Acute on chronic hypoxemic respiratory failure secondary to above Previous history of stenotrophomonas lung infections Brief episode of atrial fibrillation versus multifocal atrial tachycardia Recent discharge on August 01, 2024 to an ECF following a fall and compression fracture of L1 vertebrae, conservatively managed with a TLSO brace Severe oxygen and steroid-dependent chronic obstructive pulmonary disease, not in exacerbation Chronic hypoxemic respiratory failure, secondary to above Altered mental status and suspected acute delirium History of hyperlipidemia History of breast cancer status post chemotherapy Gastroesophageal reflux disease Plan: The patient was seen and evaluated Imaging, labs and medications reviewed Viral screen ordered Positive for influenza A Initiated on Tamiflu Continue DuoNeb and elations, Symbicort Continue Solu-Medrol Add Bactrim prophylactically We will continue to follow and make further recommendations based on her clinical status I have personally seen and examined the patient, performed the documentation and the assessment and plan as written. Number of minutes spent on the visit: 20 Dictation was produced using [employer] dictation software. Please excuse any grammatical, word or spelling errors.
--- NOTE | 2024-08-16 17:30 | P.HPIM ---
History of Present Illness H&P Date: 08/15/24 Chief Complaint: Short of breath 73-year-old patient, follows with Dr. Mohan. Clinical Trial Associate Dr. Parker. Oncologist Dr. Garber. Currently a resident of [facility]. Patient is at [facility]. Patient rather lethargic not really able to give me much of history. Sent in for shortness of breath fever. Review of systems could not be done because of above Past medical history to include: COPD, hyperlipidemia, breast cancer triple negative, home oxygen 2 L Social history: Currently at [facility]. . Smoked for about 31 years, stopped around 1999. No alcohol Physical examination: VITAL SIGNS: [102.7, 142, 18, 124 x 74, 96% on 2 L upon presentation GENERAL: BMI 25.1, laying in bed, short of breath lethargic. EYES: [Pupils equal. Conjunctiva leonel l. HEENT: External appearance of nose and ears normal, oral cavity grossly normal. NECK: JVD unable to assess masses not palpable. HEART: First and second heart sounds are normal; no edema. LUNGS:[ Respiratory rate increased, diminished breath sound expiratory crackles some wheezing. ABDOMEN: Soft, nontender, liver spleen not palpable, no masses palpable. PSYCH: Lethargic not really arousable though this respond l. MUSCULOSKELETAL:No Clubbing/cyanosis;muscles-grossly intact NEUROLOGICAL: Cranial nerves grossly intact; no facial asymmetry, power and sensation grossly intact. LYMPHATICS: No lymph nodes palpable in the axilla and neck INVESTIGATIONS, reviewed in the clinical context: August 15, 2024: White count 9.3 hemoglobin 12.7 platelets 280 sodium 128 potas sium 4.1 BUN 20 creatinine 0.74 Troponin I 0.043, 0.043 EKG tracing personally reviewed by me-sinus tachycardia with possible multifocal atrial tachycardia Chest x-ray film personally reviewed by me-hyperinflation. Lower zone some infiltrates, could be chronic component also Assessment and plan: -Acute COPD exacerbation in a prior smoker, steroid-dependent: Possible worsening with viral/bacterial pneumonia DuoNeb 4 times daily. IV Solu-Medrol, received dose of IV ceftriaxone in the ER sorry thank you -Sepsis secondary to above Fluids. Antibiotics -Chronic hypoxic respiratory failure secondary to underlying COPD 2 L of oxygen at home -Hyperlipidemia Lipitor 10 mg nightly -GERD Omeprazole -Chronic medical debility. At [facility] -Hyperlipidemia Lipitor 10 mg with supper -Breast cancer-, triple negative. Received chemotherapy being followed by Dr. Garber from oncology. 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 Right breast cancer 2022 History of Any Multi-Drug Resistant Organisms: None Reported Past Surgical History: Breast Surgery, Hernia Repair, Orthopedic Surgery Additional Past Surgical History / Comment(s): Bilateral carpal tunnel; bilateral cataract removal with lens, bronchoscopy, R inguinal hernia repair, colonoscopy RT BREAST BIOSPY, cancer and the node had chemo and radiation july 2023, colonoscopy Past Anesthesia/Blood Transfusion Reactions: No Reported Reaction Additional Past Anesthesia/Blood Transfusion Reaction / Comment(s): no blood transfusion Past Psychological History: No Psychological Hx Reported Smoking Status: Former smoker Past Alcohol Use History: None Reported Past Drug Use History: None Reported - Past Family History Father Family Medical History: COPD Additional Family Medical History / Comment(s): Father in his 50s of COPD. He was a smoker. Mother Family Medical History: CVA/TIA, Hypertension, Pneumonia Additional Family Medical History / Comment(s): Mother fell at age 85 and fractured her hip. Post op she became HTN and had a stroke and then ended up with pneumonia and . Sister(s) Family Medical History: Cancer Additional Family Medical History / Comment(s): breast Medications and Allergies Home Medications Medication Instructions Recorded Confirmed Type Ipratropium-Albuterol Nebulize 3 ml INHALATION RT-Q6H PRN 06/25/23 08/15/24 History [Duoneb 0.5 mg-3 mg/3 ml Soln] guaiFENesin [Mucinex] 600 mg PO BID 07/21/24 08/15/24 History Mometasone/Formoterol [Dulera 200 2 puff INHALATION RT-BID 07/28/24 08/15/24 History Mcg-5 Mcg Inhaler] predniSONE 5 mg PO Q2D 07/28/24 08/15/24 History predniSONE 10 mg PO Q2D 07/28/24 08/15/24 History Ipratropium-Albuterol Nebulize 3 ml INHALATION RT-QID each 08/01/24 08/15/24 Rx [Duoneb 0.5 mg-3 mg/3 ml Soln] Mag Hydrox/Al Hydrox/Simeth 15 ml PO Q6HR PRN ml 08/01/24 08/15/24 Rx [Maalox] Metoprolol Tartrate [Lopressor] 25 mg PO BID tab 08/01/24 08/15/24 Rx bisacodyL [Dulcolax] 5 mg PO DAILY PRN tab 08/01/24 08/15/24 Rx Acetaminophen [Tylenol 8 Hour] 650 mg PO Q6H PRN 08/15/24 08/15/24 History Calcium Carbonate [Tums] 1,000 mg PO Q4HR PRN 08/15/24 08/15/24 History Latanoprost [Latanoprost 0.005%] 1 drop BOTH EYES HS 08/15/24 08/15/24 History Naloxone HCl 0.4 mg IM DIRECTED PRN 08/15/24 08/15/24 History Naloxone HCl [Narcan] 4 mg NASAL DIRECTED PRN 08/15/24 08/15/24 History Omeprazole [PriLOSEC] 20 mg PO DAILY 08/15/24 08/15/24 History guaiFENesin [guaiFENesin Oral 200 mg PO QID 08/15/24 08/15/24 History Solution] traMADol HCl [Ultram] 50 mg PO Q6H PRN 08/15/24 08/15/24 History Allergies Allergy/AdvReac Type Severity Reaction Status Date / Time budesonide [From Symbicort] AdvReac ANXIETY Verified 08/15/24 16:18 formoterol [From Symbicort] AdvReac ANXIETY Verified 08/15/24 16:18 zolpidem [From Ambien] AdvReac Hallucinati Verified 08/15/24 16:18 ons Physical Exam Vitals: Vital Signs Temp Pulse Resp BP Pulse Ox 08/15/24 21:40 95 18 116/81 98 08/15/24 20:13 93 08/15/24 20:07 96 08/15/24 19:21 97.7 F 107 H 18 110/62 98 08/15/24 18:11 105 H 18 106/59 97 08/15/24 16:55 98.5 F 121 H 24 131/61 97 08/15/24 16:09 123 H 18 08/15/24 16:06 118 H 24 123/64 93 L 08/15/24 16:00 125 H 22 08/15/24 15:47 116 H 18 110/58 96 08/15/24 14:28 24 08/15/24 14:18 102.7 F H 142 H 18 124/74 96 Intake and Output 08/15/24 08/15/24 08/15/24 06:59 14:59 22:59 Intake Total 36.333 Balance 36.333 Intake: Intake, IV Titration 36.333 Amount Diltiazem 125 mg In 36.333 Sodium Chloride 0.9% 100 ml @ 10 MG/HR 10 mls/hr IV .[id number] [facility] Rx#: [id number] Other: Weight 74.843 kg Results CBC & Chem 7: 08/16/24 06:35 08/16/24 06:35 Labs: Abnormal Lab Results - Last 24 Hours (Table) 08/15/24 08/15/24 08/15/24 Range/Units 15:01 15:01 15:02 Neutrophils # 8.5 H (1.3-7.7) k/uL Lymphocytes # 0.3 L (1.0-4.8) k/uL Sodium 128 L (137-145) mmol/L Chloride 93 L (98-107) mmol/L BUN 20 H (7-17) mg/dL Glucose 139 H (74-99) mg/dL Alkaline Phosphatase 150 H (38-126) U/L Troponin I 0.043 H* (0.000-0.034) ng/mL Total Protein 5.8 L (6.3-8.2) g/dL Albumin 3.2 L (3.5-5.0) g/dL 08/15/24 Range/Units 20:36 Neutrophils # (1.3-7.7) k/uL Lymphocytes # (1.0-4.8) k/uL Sodium (137-145) mmol/L Chloride (98-107) mmol/L BUN (7-17) mg/dL Glucose (74-99) mg/dL Alkaline Phosphatase (38-126) U/L Troponin I 0.043 H* (0.000-0.034) ng/mL Total Protein (6.3-8.2) g/dL Albumin (3.5-5.0) g/dL
--- NOTE | 2024-08-16 17:36 | P.PN ---
Progress Note - Text Progress Note Date: 08/16/24 Chief Complaint: Short of breath 73-year-old patient, follows with Dr. Mohan. Dean Of Admissions Dr. Parker. Oncologist Dr. Garber. Currently a resident of [facility]. Patient is at [facility]. Patient rather lethargic not really able to give me much of history. Sent in for shortness of breath fever. August 16: Overflowing the ER. Patient sister at the bedside. More awake today short of breath. Able to answer questions. Patient took a fall sometime ago. With lower back pain. Has not really been ambulatory because of the same. On a wheelchair. Patient presented 24 hours of fever. Increased cough. Not able to expectorate. The congested. Decreased appetite. Patient tested positive for influenza A. Tamiflu being started. Feels a bit better today. 2 L nasal cannula. COPD exacerbation. Bactrim DS added by pulmonary. Active Medications Acetaminophen (Acetaminophen Tab 325 Mg Tab) 650 mg PO Q6H PRN PRN Reason: Pain Albuterol Sulfate (Albuterol Nebulized 2.5 Mg/3 Ml) 2.5 mg INHALATION RT-TID PRN PRN Reason: Shortness Of Breath Or Wheezing Last Admin: 08/16/24 03:26 Dose: 2.5 mg Albuterol/Ipratropium (Ipratropium-Albuterol 3 Ml Neb) 3 ml INHALATION RT-QID [facility] Last Admin: 08/16/24 15:09 Dose: 3 ml Bisacodyl (Bisacodyl 5 Mg Tablet.Dr) 5 mg PO DAILY PRN PRN Reason: Constipation Budesonide/Formoterol Fumarate (Symbicort 160-4.5 Mcg Inhaler) 2 puff INHALATION RT-BID [facility] Last Admin: 08/16/24 06:43 Dose: Not Given Calcium Carbonate/Glycine (Calcium Carbonate 500 Mg Chewable) 1,000 mg PO Q4HR PRN PRN Reason: GERD Guaifenesin (Guaifenesin 600 Mg Tablet.Er) 600 mg PO BID [facility] Last Admin: 08/16/24 09:46 Dose: 600 mg Heparin Sodium (Porcine) (Heparin Sodium 1,000 Un/Ml (10ml Vl)) 0 unit IV PER PROTOCOL PRN; Protocol PRN Reason: Low PTT Lactated Ringer's (Lactated Ringers) 1,000 mls @ 130 mls/hr IV .[id number] [facility] Last Admin: 08/16/24 15:17 Dose: 130 mls/hr Latanoprost (Latanoprost 0.005% Ophth Drops 2.5 Ml Btl) 1 drops BOTH EYES HS [facility] Last Admin: 08/15/24 23:18 Dose: 1 drops Methylprednisolone Sodium Succinate (Methylprednisolone Sod Succi 125 Mg/2 Ml Vial) 60 mg IV Q6HR [facility] Last Admin: 08/16/24 12:45 Dose: 60 mg Morphine Sulfate (Morphine Sulfate 4 Mg/Ml Syringe) 4 mg IV Q4HR PRN PRN Reason: Severe Pain (Scale 7 to 10) Naloxone HCl (Naloxone 0.4 Mg/Ml 1 Ml Vial) 0.2 mg IV Q2M PRN PRN Reason: Opioid Reversal Ondansetron HCl (Ondansetron 4 Mg/2 Ml Vial) 4 mg IVP Q8HR PRN PRN Reason: Nausea And Vomiting Oseltamivir Phosphate (Oseltamivir 75 Mg Cap) 75 mg PO Q12HR [facility]; Protocol Stop: 08/21/24 09:01 Pantoprazole Sodium (Pantoprazole 40 Mg Tablet) 40 mg PO AC-BRKFST [facility] Last Admin: 08/16/24 09:46 Dose: 40 mg Tramadol HCl (Tramadol 50 Mg Tab) 50 mg PO Q6H PRN PRN Reason: Pain Trimethoprim/Sulfamethoxazole (Sulfamethox-Tmp 800-160mg 1 Each Tab) 1 each PO BID [facility]; Protocol Last Admin: 08/16/24 09:46 Dose: 1 each Review of systems could not be done because of above Past medical history to include: COPD, hyperlipidemia, breast cancer triple negative, home oxygen 2 L Social history: Currently at [facility]. . Smoked for about 31 years, stopped around 1999. No alcohol Physical examination: VITAL SIGNS: 97.6, 101, 16, 143 x 79, 98% 2 L GENERAL: BMI 25.1, laying in bed, short of breath more awake, tired EYES: [Pupils equal. Conjunctiva leonel l. HEENT: External appearance of nose and ears normal, oral cavity grossly normal. NECK: JVD unable to assess masses not palpable. HEART: First and second heart sounds are normal; no edema. LUNGS:[ Respiratory rate increased, diminished breath sound expiratory crackles some wheezing. ABDOMEN: Soft, nontender, liver spleen not palpable, no masses palpable. PSYCH: AOx3, mood affect tired. MUSCULOSKELETAL:No Clubbing/cyanosis;muscles-grossly intact NEUROLOGICAL: Cranial nerves grossly intact; no facial asymmetry, power and sensation grossly intact. LYMPHATICS: No lymph nodes palpable in the axilla and neck INVESTIGATIONS, reviewed in the clinical context: August 16: White count 5.2 hemoglobin 11.8 platelets 171 sodium 134 potassium 3.9 creatinine 0.53 Influenza type a PCR: Detected [influenza type B, RSV, SARS-CoV-2: Not detected] August 15, 2024: White count 9.3 hemoglobin 12.7 platelets 280 sodium 128 potassium 4.1 BUN 20 creatinine 0.74 Troponin I 0.043, 0.043 EKG tracing personally reviewed by me-sinus tachycardia with possible multifocal atrial tachycardia Chest x-ray film personally reviewed by me-hyperinflation. Lower zone some infiltrates, could be chronic component also Assessment and plan: -Acute COPD exacerbation in a prior smoker, steroid-dependent: Worsening secondary to influenza A, causing sepsis DuoNeb 4 times daily. IV Solu-Medrol, received dose of IV ceftriaxone in the ER sorry thank you -Sepsis secondary to influenza A pneumonitis Fluids. Antibiotics -Acute metabolic encephalopathy and delirium secondary to above, POA: Improving today -Chronic hypoxic respiratory failure secondary to underlying COPD 2 L of oxygen at home -Hyperlipidemia Lipitor 10 mg nightly -GERD Omeprazole -Chronic medical debility. At [facility] At the baseline using a wheelchair. After fall has pain in the sacral area. -Hyperlipidemia Lipitor 10 mg with supper -Breast cancer-, triple negative. Received chemotherapy being followed by Dr. Garber from oncology. 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 But given her change in medical status this is being discussed with her. Patient does not want to revisit the same. At this point not sure. She will also discuss this with her trust evaluation supervisor Dr. Parker. Patient overall medical condition lung status discussed. Patient's sister is the medical POA. Time spent for this about 25 minutes Past Medical History Past Medical History: Cancer, COPD, Eye Disorder, Hyperlipidemia Additional Past Medical History / Comment(s): bilateral eyes with increased intraocular pressure-not glaucoma yet, neuralgia R side forhead in past,daily steroid, FOOD GETS STUCK IN THROAT, BLOATING, wears oxygen 2lnc as needed. Right breast cancer 2022 History of Any Multi-Drug Resistant Organisms: None Reported Past Surgical History: Breast Surgery, Hernia Repair, Orthopedic Surgery Additional Past Surgical History / Comment(s): Bilateral carpal tunnel; bilateral cataract removal with lens, bronchoscopy, R inguinal hernia repair, colonoscopy RT BREAST BIOSPY, cancer and the node had chemo and radiation july 2023, colonoscopy Past Anesthesia/Blood Transfusion Reactions: No Reported Reaction Additional Past Anesthesia/Blood Transfusion Reaction / Comment(s): no blood transfusion Past Psychological History: No Psychological Hx Reported Smoking Status: Former smoker Past Alcohol Use History: None Reported Past Drug Use History: None Reported
[2024-08-16] MEDS: OSELTAMIVIR 75 MG CAP PO SCH (20:32)
[2024-08-17] MEDS: FUROSEMIDE 10 MG/ML 4 ML VIAL IV STA (03:58)
[2024-08-17] MEDS: traMADol 50 MG TAB PO PRN (09:01)
[2024-08-17] MEDS: POTASSIUM CHLORIDE ER 20 MEQ TAB.ER PO STA (12:09)
--- NOTE | 2024-08-17 14:50 | P.PN ---
Subjective Progress Note Date: 08/17/24 This is a 74-year-old female patient with a history of COPD, former smoker, stenotrophomonas pneumonia, hypertension, hyperlipidemia, right breast cancer status post 3 and chemoradiation. She was recently here less than 1 month ago after sustaining a fall a COPD exacerbation. Discharged to an extended care facility on August 01, 2024. They brought her back to the emergency room yesterday after finding her to have a fever and shortness of breath. The patient herself is somewhat of a poor historian and not clear as to why she was here. Her is at the bedside and provides most of the information. X- ray revealed no acute cardiopulmonary process. There is evidence of COPD. She was also noted to have a brief episode of atrial fibrillation with rapid ventricular response versus atrial tachycardia. She was initially on a Cardizem drip and a heparin drip. Seen by cardiology. She did have a temperature of 102.7. White count 5.2. Hemoglobin 11.8. Platelets 271. Sodium 134. Potassium 3.9. Bicarb 26. BUN 16. Creatinine 0.53. Glucose 156. She did test positive for influenza A. The patient is seen today August 17, 2024 in follow-up on the selective care unit. She is awake and alert in no acute distress. Resting fairly comfortably in bed. A bit stronger today compared to yesterday. Maintaining O2 saturations in the 90s on 4 L/min per nasal cannula. Still some wheezing. Blood culture reveals no growth. No new labs today. She is continued on DuoNeb inhalations, Symbicort, Solu-Medrol. Continued on Tamiflu. Continued on Bactrim prophylactically. She received Lasix early this morning and again this afternoon. Diuresed 1.4 L thus far. Objective - Vital Signs Vital signs: Vital Signs Temp 98.3 F 08/17/24 12:05 Pulse 96 08/17/24 12:05 Resp 18 08/17/24 12:05 BP 157/73 08/17/24 12:05 Pulse Ox 96 08/17/24 12:05 FiO2 Intake & Output 08/16/24 08/17/24 08/17/24 18:59 06:59 18:59 Output Total 1450 700 Balance -1450 -700 Weight 64 kg Output: Urine 1450 700 Other: Voiding Method External Catheter External Catheter # Voids 1 # Bowel Movements 1 - Exam GENERAL EXAM: Alert, 74-year-old female, resting in bed, on 4 L nasal cannula, comfortable in no apparent distress. HEAD: Normocephalic. EYES: Normal reaction of pupils, equal size. NOSE: Clear with pink turbinates. THROAT: No erythema or exudates. NECK: No masses, no JVD. CHEST: No chest wall deformity. LUNGS: Equal air entry with bilateral end expiratory wheeze. CVS: S1 and S2 normal with no audible murmur, regular rhythm. ABDOMEN: No hepatosplenomegaly, normal bowel sounds, no guarding or rigidity. SPINE: No scoliosis or deformity SKIN: No rashes CENTRAL NERVOUS SYSTEM: No focal deficits, tone is normal in all 4 extremities. EXTREMITIES: There is no peripheral edema. No clubbing, no cyanosis. Peripheral pulses are intact. - Labs CBC & Chem 7: 08/16/24 06:35 08/16/24 06:35 Labs: Abnormal Lab Results - Last 24 Hours (Table) 08/16/24 Range/Units 14:14 Influenza Type A (PCR) Detected A (Not Detectd) Microbiology - Last 24 Hours (Table) 08/15/24 15:02 Blood Culture - Preliminary Blood Assessment and Plan Assessment: Febrile illness secondary to acute influenza A infection. Chest x-ray shows no acute cardiopulmonary process Acute influenza A infection Acute exacerbation of chronic obstructive pulmonary disease Acute on chronic hypoxemic respiratory failure secondary to above Previous history of Pseudomonas and stenotrophomonas lung infections Brief episode of atrial fibrillation versus multifocal atrial tachycardia Recent discharge on August 01, 2024 to an [facility]CF following a fall and compression fracture of L1 vertebrae, conservatively managed with a TLSO brace Severe oxygen and steroid-dependent chronic obstructive pulmonary disease, not in exacerbation Chronic hypoxemic respiratory failure, secondary to above Altered mental status and suspected acute delirium History of hyperlipidemia History of breast cancer status post chemotherapy Gastroesophageal reflux disease Plan: The patient was seen and evaluated Medications reviewed Continue Tamiflu Continue DuoNeb inhalations, Symbicort Continue Solu-Medrol Continue Bactrim prophylactically Lovenox for DVT prophylaxis Plan is to return to [facility] at discharge We will continue to follow I have personally seen and examined the patient, performed the documentation and the assessment and plan as written. Number of minutes spent on the visit: 10 Dictation was produced using g2Oneation software. Please excuse any grammatical, word or spelling errors.
[2024-08-17] MEDS: FUROSEMIDE 10 MG/ML 2 ML VIAL IV ONE (15:37)
[2024-08-17] MEDS: ACETAMINOPHEN TAB 325 MG TAB PO PRN (18:26)
--- NOTE | 2024-08-17 23:53 | P.PN ---
Progress Note - Text Progress Note Date: 08/17/24 Chief Complaint: Short of breath 73-year-old patient, follows with Dr. Mohan. Yard Foreman Dr. Parker. Oncologist Dr. Garebr. Currently a resident of [facility]. Patient is at [facility]. Patient rather lethargic not really able to give me much of history. Sent in for shortness of breath fever. August 16: Overflowing the ER. Patient sister at the bedside. More awake today short of breath. Able to answer questions. Patient took a fall sometime ago. With lower back pain. Has not really been ambulatory because of the same. On a wheelchair. Patient presented 24 hours of fever. Increased cough. Not able to expectorate. The congested. Decreased appetite. Patient tested positive for influenza A. Tamiflu being started. Feels a bit better today. 2 L nasal cannula. COPD exacerbation. Bactrim DS added by pulmonary. August 17: Patient seen by me this morning. Was more short of breath. IV fluids discontinued. Dose of IV Lasix given. Over a liter of fluid was put out. I did repeat a dose of IV Lasix this afternoon. Because of crackles in the lungs. Oral intake better. Active Medications Acetaminophen (Acetaminophen Tab 325 Mg Tab) 650 mg PO Q6H PRN PRN Reason: Pain Last Admin: 08/17/24 18:26 Dose: 650 mg Albuterol Sulfate (Albuterol Nebulized 2.5 Mg/3 Ml) 2.5 mg INHALATION RT-TID PRN PRN Reason: Shortness Of Breath Or Wheezing Last Admin: 08/17/24 03:26 Dose: 2.5 mg Albuterol/Ipratropium (Ipratropium-Albuterol 3 Ml Neb) 3 ml INHALATION RT-QID [facility] Last Admin: 08/17/24 20:25 Dose: 3 ml Bisacodyl (Bisacodyl 5 Mg Tablet.) 5 mg PO DAILY PRN PRN Reason: Constipation Budesonide/Formoterol Fumarate (Symbicort 160-4.5 Mcg Inhaler) 2 puff INHALATION RT-BID [facility] Last Admin: 08/17/24 20:25 Dose: Not Given Calcium Carbonate/Glycine (Calcium Carbonate 500 Mg Chewable) 1,000 mg PO Q4HR PRN PRN Reason: GERD Enoxaparin Sodium (Enoxaparin 40 Mg/0.4 Ml Syringe) 40 mg SQ DAILY [facility] Guaifenesin (Guaifenesin 600 Mg Tablet.Er) 600 mg PO BID [facility] Last Admin: 08/17/24 20:43 Dose: 600 mg Latanoprost (Latanoprost 0.005% Ophth Drops 2.5 Ml Btl) 1 drops BOTH EYES HS [facility] Last Admin: 08/17/24 20:43 Dose: 1 drops Methylprednisolone Sodium Succinate (Methylprednisolone Sod Succi 125 Mg/2 Ml Vial) 40 mg IV Q8H [facility] Morphine Sulfate (Morphine Sulfate 4 Mg/Ml Syringe) 4 mg IV Q4HR PRN PRN Reason: Severe Pain (Scale 7 to 10) Naloxone HCl (Naloxone 0.4 Mg/Ml 1 Ml Vial) 0.2 mg IV Q2M PRN PRN Reason: Opioid Reversal Ondansetron HCl (Ondansetron 4 Mg/2 Ml Vial) 4 mg IVP Q8HR PRN PRN Reason: Nausea And Vomiting Oseltamivir Phosphate (Oseltamivir 75 Mg Cap) 75 mg PO Q12HR [facility]; Protocol Stop: 08/21/24 09:01 Last Admin: 08/17/24 20:43 Dose: 75 mg Pantoprazole Sodium (Pantoprazole 40 Mg Tablet) 40 mg PO AC-BRKFST [facility] Last Admin: 08/17/24 06:08 Dose: 40 mg Tramadol HCl (Tramadol 50 Mg Tab) 50 mg PO Q6H PRN PRN Reason: Pain Last Admin: 08/17/24 23:35 Dose: 50 mg Trimethoprim/Sulfamethoxazole (Sulfamethox-Tmp 800-160mg 1 Each Tab) 1 each PO BID [facility]; Protocol Last Admin: 08/17/24 20:43 Dose: 1 each Review of systems could not be done because of above Past medical history to include: COPD, hyperlipidemia, breast cancer triple negative, home oxygen 2 L Social history: Currently at [facility]. . Smoked for about 31 years, stopped around 1999. No alcohol Physical examination: VITAL SIGNS: 98.3, 96, 18, 157 x 73, 96% on 3 L GENERAL: BMI 25.1, laying in bed, breathing better EYES: [Pupils equal. Conjunctiva leonel l. HEENT: External appearance of nose and ears normal, oral cavity grossly normal. NECK: JVD unable to assess masses not palpable. HEART: First and second heart sounds are normal; no edema. LUNGS:[ Respiratory rate increased, diminished breath sound decreased crackles ABDOMEN: Soft, nontender, liver spleen not palpable, no masses palpable. PSYCH: AOx3, mood affect tired. MUSCULOSKELETAL:No Clubbing/cyanosis;muscles-grossly intact NEUROLOGICAL: Cranial nerves grossly intact; no facial asymmetry, power and sensation grossly intact. LYMPHATICS: No lymph nodes palpable in the axilla and neck INVESTIGATIONS, reviewed in the clinical context: August 16: White count 5.2 hemoglobin 11.8 platelets 171 sodium 134 potassium 3.9 creatinine 0.53 Influenza type a PCR: Detected [influenza type B, RSV, SARS-CoV-2: Not detected] August 15, 2024: White count 9.3 hemoglobin 12.7 platelets 280 sodium 128 potassium 4.1 BUN 20 creatinine 0.74 Troponin I 0.043, 0.043 EKG tracing personally reviewed by me-sinus tachycardia with possible multifocal atrial tachycardia Chest x-ray film personally reviewed by me-hyperinflation. Lower zone some infiltrates, could be chronic component also Assessment and plan: -Acute COPD exacerbation in a prior smoker, steroid-dependent: Worsening secondary to influenza A, causing sepsis: Better DuoNeb 4 times daily. IV Solu-Medrol, decreased to 40 mg every 8. Received dose of IV ceftriaxone in the ER -Acute pulmonary edema secondary IV fluids IV fluids discontinued this morning. IV Lasix given x 2 doses. -Sepsis secondary to influenza A pneumonitis Fluids. -Acute metabolic encephalopathy and delirium secondary to above, POA: Better -Chronic hypoxic respiratory failure secondary to underlying COPD 2 L of oxygen at home -Hyperlipidemia Lipitor 10 mg nightly -GERD Omeprazole -Chronic medical debility. At ECF At the baseline using a wheelchair. After fall has pain in the sacral area. -Hyperlipidemia Lipitor 10 mg with supper -Breast cancer-, triple negative. Received chemotherapy being followed by Dr. Garber from oncology. -Medical power of wool sampler:Gracie nascimento, sister -Full code Advance care planning [this was discussed with patient and patient's sister at the bedside: August 16, 2024] Patient has advanced directives. But given her change in medical status this is being discussed with her. Patient does not want to revisit the same. At this point not sure. She will also discuss this with her concrete journeyman Dr. Parker. Patient overall medical condition lung status discussed. Patient's sister is the medical POA. Time spent for this about 25 minutes Cut back IV Solu-Medrol. Lasix x 2 doses given earlier today. Repeat checks x- ray tomorrow. Being followed by pulmonary. They have ordered Bactrim. 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 Right breast cancer 2022 History of Any Multi-Drug Resistant Organisms: None Reported Past Surgical History: Breast Surgery, Hernia Repair, Orthopedic Surgery Additional Past Surgical History / Comment(s): Bilateral carpal tunnel; bilateral cataract removal with lens, bronchoscopy, R inguinal hernia repair, colonoscopy RT BREAST BIOSPY, cancer and the node had chemo and radiation july 2023, colonoscopy Past Anesthesia/Blood Transfusion Reactions: No Reported Reaction Additional Past Anesthesia/Blood Transfusion Reaction / Comment(s): no blood transfusion Past Psychological History: No Psychological Hx Reported Smoking Status: Former smoker Past Alcohol Use History: None Reported Past Drug Use History: None Reported
[2024-08-18 07:20] LABS: African American GFR (CKD) >90 (>60 ml/min/1.73 sqM); Anion Gap 4 mmol/L; Blood Urea Nitrogen 21 mg/dL (7-17); Calcium 8.7 mg/dL (8.4-10.2); Carbon Dioxide 31 mmol/L (22-30); Chloride 96 mmol/L (98-107); Glucose 109 mg/dL (74-99); Non-African American GFR(CKD) 81 (>60 ml/min/1.73 sqM); Potassium 4.2 mmol/L (3.5-5.1); Sodium 131 mmol/L (137-145)
[2024-08-18] MEDS: methylPREDNISolone SOD SUCCI 40 MG/ML 1 ML VIAL IV SCH (09:00)
[2024-08-18] MEDS: ENOXAPARIN 40 MG/0.4 ML SYRINGE SQ SCH (09:01)
--- NOTE | 2024-08-18 11:01 | XR ---
EXAMINATION TYPE: XR chest 2V DATE OF EXAM: 08/18/2024 10:50 AM COMPARISON: Chest radiographs from 08/15/2024. CLINICAL INDICATION: Female, 74 years old with history of Follow-up pulm edema; MERGED WITH [facility] TECHNIQUE: XR chest 2V Frontal and lateral views of the chest. FINDINGS: Lungs/Pleura: There is no evidence of pleural effusion, focal consolidation, or pneumothorax. Pulmonary vascularity: Minimal pulmonary edema and no significant slightly improved Heart/mediastinum: Cardiomediastinal silhouette is unremarkable. Musculoskeletal: No acute osseous pathology. IMPRESSION: Slightly improved pulmonary edema compared to prior 08/15/2024. [facility], , 08/18/2024 10:59 AM
--- NOTE | 2024-08-18 15:40 | P.PN ---
Subjective Progress Note Date: 08/18/24 This is a 74-year-old female patient with a history of COPD, former smoker, stenotrophomonas pneumonia, hypertension, hyperlipidemia, right breast cancer status post 3 and chemoradiation. She was recently here less than 1 month ago after sustaining a fall a COPD exacerbation. Discharged to an extended care facility on August 01, 2024. They brought her back to the emergency room yesterday after finding her to have a fever and shortness of breath. The patient herself is somewhat of a poor historian and not clear as to why she was here. Her is at the bedside and provides most of the information. X- ray revealed no acute cardiopulmonary process. There is evidence of COPD. She was also noted to have a brief episode of atrial fibrillation with rapid ventricular response versus atrial tachycardia. She was initially on a Cardizem drip and a heparin drip. Seen by cardiology. She did have a temperature of 102.7. White count 5.2. Hemoglobin 11.8. Platelets 271. Sodium 134. Potassium 3.9. Bicarb 26. BUN 16. Creatinine 0.53. Glucose 156. She did test positive for influenza A. The patient is seen today August 17, 2024 in follow-up on the selective care unit. She is awake and alert in no acute distress. Resting fairly comfortably in bed. A bit stronger today compared to yesterday. Maintaining O2 saturations in the 90s on 4 L/min per nasal cannula. Still some wheezing. Blood culture reveals no growth. No new labs today. She is continued on DuoNeb inhalations, Symbicort, Solu-Medrol. Continued on Tamiflu. Continued on Bactrim prophylactically. She received Lasix early this morning and again this afternoon. Diuresed 1.4 L thus far. The patient is seen today August 18, 2024 in follow-up on the selective care unit. She is currently sitting up in a chair at the bedside. Awake and alert in no acute distress. She is still short of breath with conversation. Short of breath with minimal exertion. She is continued on DuoNeb and elations, Symbicort, Solu-Medrol. Continued on Tamiflu. Lovenox for DVT prophylaxis. Bactrim for pneumonia prophylaxis. Blood culture reveals no growth. Sodium 131. Potassium 4.2. Bicarb 31. BUN 21. Creatinine 0.74. Glucose 109. Currently in a -1.8 L balance. Objective - Vital Signs Vital signs: Vital Signs Temp 97.6 F 08/18/24 11:27 Pulse 100 08/18/24 13:18 Resp 20 08/18/24 11:27 BP 187/87 08/18/24 11:27 Pulse Ox 97 08/18/24 11:27 FiO2 Intake & Output 08/17/24 08/18/24 08/18/24 18:59 06:59 18:59 Intake Total 240 360 Output Total 1650 450 300 Balance -1650 -210 60 Weight 62 kg Intake: Oral 240 360 Output: Urine 1650 450 300 Other: Voiding Method External Catheter External Catheter External Catheter # Bowel Movements 1 1 - Exam GENERAL EXAM: Alert, weak 74-year-old female, sitting up in a chair, on 3 L nasal cannula, comfortable in no apparent distress. HEAD: Normocephalic. EYES: Normal reaction of pupils, equal size. NOSE: Clear with pink turbinates. THROAT: No erythema or exudates. NECK: No masses, no JVD. CHEST: No chest wall deformity. LUNGS: Equal air entry with bilateral end expiratory wheeze. CVS: S1 and S2 normal with no audible murmur, regular rhythm. ABDOMEN: No hepatosplenomegaly, normal bowel sounds, no guarding or rigidity. SPINE: No scoliosis or deformity SKIN: No rashes CENTRAL NERVOUS SYSTEM: No focal deficits, tone is normal in all 4 extremities. EXTREMITIES: There is no peripheral edema. No clubbing, no cyanosis. Peripheral pulses are intact. - Labs CBC & Chem 7: 08/16/24 06:35 08/18/24 05:52 Labs: Abnormal Lab Results - Last 24 Hours (Table) 08/18/24 Range/Units 05:52 Sodium 131 L (137-145) mmol/L Chloride 96 L (98-107) mmol/L Carbon Dioxide 31 H (22-30) mmol/L BUN 21 H (7-17) mg/dL Glucose 109 H (74-99) mg/dL Microbiology - Last 24 Hours (Table) 08/15/24 15:02 Blood Culture - Preliminary Blood Assessment and Plan Assessment: Febrile illness secondary to acute influenza A infection. Chest x-ray shows no acute cardiopulmonary process Acute influenza A infection Acute exacerbation of chronic obstructive pulmonary disease Acute on chronic hypoxemic respiratory failure secondary to above Previous history of Pseudomonas and stenotrophomonas lung infections Brief episode of atrial fibrillation versus multifocal atrial tachycardia Recent discharge on August 01, 2024 to an ECF following a fall and compression fracture of L1 vertebrae, conservatively managed with a TLSO brace Severe oxygen and steroid-dependent chronic obstructive pulmonary disease, not in exacerbation Chronic hypoxemic respiratory failure, secondary to above Altered mental status and suspected acute delirium History of hyperlipidemia History of breast cancer status post chemotherapy Gastroesophageal reflux disease Plan: The patient was seen and evaluated Medications and labs reviewed Continue Tamiflu Continue DuoNeb inhalations, Symbicort Continue Solu-Medrol Continue Bactrim prophylactically Lovenox for DVT prophylaxis Not quite ready for discharge Plan is to return to [facility] I have personally seen and examined the patient, performed the documentation and the assessment and plan as written. Number of minutes spent on the visit: 10 Dictation was produced using [employer] dictation software. Please excuse any grammatical, word or spelling errors.
--- NOTE | 2024-08-18 17:21 | P.PN ---
Progress Note - Text Progress Note Date: 08/18/24 Chief Complaint: Short of breath 73-year-old patient, follows with Dr. Mohan. Forestry Tree Pruner Dr. Parker. Oncologist Dr. Garber. Currently a resident of [facility]. Patient is at [facility]. Patient rather lethargic not really able to give me much of history. Sent in for shortness of breath fever. August 16: Overflowing the ER. Patient sister at the bedside. More awake today short of breath. Able to answer questions. Patient took a fall sometime ago. With lower back pain. Has not really been ambulatory because of the same. On a wheelchair. Patient presented 24 hours of fever. Increased cough. Not able to expectorate. The congested. Decreased appetite. Patient tested positive for influenza A. Tamiflu being started. Feels a bit better today. 2 L nasal cannula. COPD exacerbation. Bactrim DS added by pulmonary. August 17: Patient seen by me this morning. Was more short of breath. IV fluids discontinued. Dose of IV Lasix given. Over a liter of fluid was put out. I did repeat a dose of IV Lasix this afternoon. Because of crackles in the lungs. Oral intake better. August 18: Reclining in bed. Tired. Short of breath. Congested chest. Not able to expectorate. Discussed with Dr. Parker. Will see how patient does. Continue with IV Solu-Medrol oral Bactrim DuoNeb. Jcarlos will be increased to every 4. Did eat about 50% of breakfast lunch. P.o. Lasix added by pulmonary. Discussed with patient. Wishes to remain full code Active Medications Acetaminophen (Acetaminophen Tab 325 Mg Tab) 650 mg PO Q6H PRN PRN Reason: Pain Last Admin: 08/17/24 18:26 Dose: 650 mg Albuterol Sulfate (Albuterol Nebulized 2.5 Mg/3 Ml) 2.5 mg INHALATION RT-TID PRN PRN Reason: Shortness Of Breath Or Wheezing Last Admin: 08/17/24 03:26 Dose: 2.5 mg Albuterol/Ipratropium (Ipratropium-Albuterol 3 Ml Neb) 3 ml INHALATION RT-Q4H [facility] Bisacodyl (Bisacodyl 5 Mg Tablet.) 5 mg PO DAILY PRN PRN Reason: Constipation Budesonide/Formoterol Fumarate (Symbicort 160-4.5 Mcg Inhaler) 2 puff INHALATION RT-BID [facility] Last Admin: 08/18/24 07:43 Dose: Not Given Calcium Carbonate/Glycine (Calcium Carbonate 500 Mg Chewable) 1,000 mg PO Q4HR PRN PRN Reason: GERD Enoxaparin Sodium (Enoxaparin 40 Mg/0.4 Ml Syringe) 40 mg SQ DAILY [facility] Last Admin: 08/18/24 09:01 Dose: 40 mg Guaifenesin (Guaifenesin 600 Mg Tablet.Er) 600 mg PO BID [facility] Last Admin: 08/18/24 09:00 Dose: 600 mg Latanoprost (Latanoprost 0.005% Ophth Drops 2.5 Ml Btl) 1 drops BOTH EYES HS [facility] Last Admin: 08/17/24 20:43 Dose: 1 drops Methylprednisolone Sodium Succinate (Methylprednisolone Sod Succi 40 Mg/Ml 1 Ml Vial) 40 mg IV Q8H [facility] Last Admin: 08/18/24 16:24 Dose: 40 mg Metoprolol Tartrate (Metoprolol Tartrate 25 Mg Tab) 25 mg PO BID [facility] Morphine Sulfate (Morphine Sulfate 4 Mg/Ml Syringe) 4 mg IV Q4HR PRN PRN Reason: Severe Pain (Scale 7 to 10) Naloxone HCl (Naloxone 0.4 Mg/Ml 1 Ml Vial) 0.2 mg IV Q2M PRN PRN Reason: Opioid Reversal Ondansetron HCl (Ondansetron 4 Mg/2 Ml Vial) 4 mg IVP Q8HR PRN PRN Reason: Nausea And Vomiting Oseltamivir Phosphate (Oseltamivir 75 Mg Cap) 75 mg PO Q12HR [facility]; Protocol Stop: 08/21/24 09:01 Last Admin: 08/18/24 09:00 Dose: 75 mg Pantoprazole Sodium (Pantoprazole 40 Mg Tablet) 40 mg PO AC-BRKFST [facility] Last Admin: 08/18/24 05:57 Dose: 40 mg Tramadol HCl (Tramadol 50 Mg Tab) 50 mg PO Q6H PRN PRN Reason: Pain Last Admin: 08/17/24 23:35 Dose: 50 mg Trimethoprim/Sulfamethoxazole (Sulfamethox-Tmp 800-160mg 1 Each Tab) 1 each PO BID [facility]; Protocol Last Admin: 08/18/24 09:00 Dose: 1 each Past medical history to include: COPD, hyperlipidemia, breast cancer triple negative, home oxygen 2 L Social history: Currently at [facility]. . Smoked for about 31 years, stopped around 1999. No alcohol Physical examination: VITAL SIGNS: 97.6, 101, 22, 1 8787, 97% 3 L. Repeat blood pressure 152/80 GENERAL: BMI 25.1, laying in bed, short of breath, tired, wet sounding. EYES: [Pupils equal. Conjunctiva leonel l. HEENT: External appearance of nose and ears normal, oral cavity grossly normal. NECK: JVD unable to assess masses not palpable. HEART: First and second heart sounds are normal; no edema. LUNGS:[ Respiratory rate increased, diminished breath sound, expiratory crackles. Wheezing ABDOMEN: Soft, nontender, liver spleen not palpable, no masses palpable. PSYCH: AOx3, mood affect tired. MUSCULOSKELETAL:No Clubbing/cyanosis;muscles-grossly intact INVESTIGATIONS, reviewed in the clinical context: August 18: Sodium 131 potassium 4.2 BUN 21 creatinine 0.74 August 16: White count 5.2 hemoglobin 11.8 platelets 171 sodium 134 potassium 3.9 creatinine 0.53 Influenza type a PCR: Detected [influenza type B, RSV, SARS-CoV-2: Not detected] August 15, 2024: White count 9.3 hemoglobin 12.7 platelets 280 sodium 128 potas sium 4.1 BUN 20 creatinine 0.74 Troponin I 0.043, 0.043 EKG tracing personally reviewed by me-sinus tachycardia with possible multifocal atrial tachycardia Chest x-ray film personally reviewed by me-hyperinflation. Lower zone some infiltrates, could be chronic component also Assessment and plan: -Acute COPD exacerbation in a prior smoker, steroid-dependent: Worsening secondary to influenza A, causing sepsis: Slow to respond Increase DuoNeb every 4 hours.. IV Solu-Medrol,-40 mg every 8. -Acute pulmonary edema secondary IV fluids: Better IV fluids discontinued this morning. IV Lasix given x 2 doses. On oral Lasix -Sepsis secondary to influenza A pneumonitis Fluids. -Acute metabolic encephalopathy and delirium secondary to above, POA: Better -Chronic hypoxic respiratory failure secondary to underlying COPD 2 L of oxygen at home -Hyperlipidemia Lipitor 10 mg nightly -GERD Omeprazole -Chronic medical debility. At ECF At the baseline using a wheelchair. After fall has pain in the sacral area. -Hyperlipidemia Lipitor 10 mg with supper -Breast cancer-, triple negative. Received chemotherapy being followed by Dr. Garber from oncology. -Medical power of document review attorney:Gracie nascimento, sister -Full code Advance care planning [this was discussed with patient and patient's sister at the bedside: August 16, 2024] Patient has advanced directives. But given her change in medical status this is being discussed with her. Patient does not want to revisit the same. At this point not sure. She will also discuss this with her black puller Dr. Parker. Patient overall medical condition lung status discussed. Patient's sister is the medical POA. Time spent for this about 25 minutes Continue IV Solu-Medrol. Placed on oral Lasix by pulmonary. Increase DuoNeb every [address] Parker from pulmonary. Not ready for discharge. 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 Right breast cancer 2022 History of Any Multi-Drug Resistant Organisms: None Reported Past Surgical History: Breast Surgery, Hernia Repair, Orthopedic Surgery Additional Past Surgical History / Comment(s): Bilateral carpal tunnel; bilateral cataract removal with lens, bronchoscopy, R inguinal hernia repair, colonoscopy RT BREAST BIOSPY, cancer and the node had chemo and radiation july 2023, colonoscopy Past Anesthesia/Blood Transfusion Reactions: No Reported Reaction Additional Past Anesthesia/Blood Transfusion Reaction / Comment(s): no blood transfusion Past Psychological History: No Psychological Hx Reported Smoking Status: Former smoker Past Alcohol Use History: None Reported Past Drug Use History: None Reported
[2024-08-18] MEDS: IPRATROPIUM-ALBUTEROL 3 ML NEB INHALATION SCH (17:54)
[2024-08-18] MEDS: METOPROLOL TARTRATE 25 MG TAB PO SCH (20:12)
[2024-08-19 07:33] LABS: African American GFR (CKD) 83 (>60 ml/min/1.73 sqM); Anion Gap 2 mmol/L; Blood Urea Nitrogen 22 mg/dL (7-17); Calcium 9.2 mg/dL (8.4-10.2); Carbon Dioxide 34 mmol/L (22-30); Chloride 94 mmol/L (98-107); Glucose 97 mg/dL (74-99); Non-African American GFR(CKD) 72 (>60 ml/min/1.73 sqM); Potassium 4.2 mmol/L (3.5-5.1); Sodium 130 mmol/L (137-145)
--- NOTE | 2024-08-19 11:14 | P.PN ---
Subjective 73-year-old patient, follows with Dr. Mohan. Engineer Process Dr. Parker. Oncologist Dr. Garber. Currently a resident of [facility]. Patient is at [facility]. Patient rather lethargic not really able to give me much of history. Sent in for shortness of breath fever. August 16: Overflowing the ER. Patient sister at the bedside. More awake today short of breath. Able to answer questions. Patient took a fall sometime ago. With lower back pain. Has not really been ambulatory because of the same. On a wheelchair. Patient presented 24 hours of fever. Increased cough. Not able to expectorate. The congested. Decreased appetite. Patient tested positive for influenza A. Tamiflu being started. Feels a bit better today. 2 L nasal ca nnula. COPD exacerbation. Bactrim DS added by pulmonary. August 17: Patient seen by me this morning. Was more short of breath. IV fluids discontinued. Dose of IV Lasix given. Over a liter of fluid was put out. I did repeat a dose of IV Lasix this afternoon. Because of crackles in the lungs. Oral intake better. August 18: Reclining in bed. Tired. Short of breath. Congested chest. Not abl e to expectorate. Discussed with Dr. Parker. Will see how patient does. Continue with IV Solu-Medrol oral Bactrim DuoNeb. Jcarlos will be increased to every 4. Did eat about 50% of breakfast lunch. P.o. Lasix added by pulmonary. Discussed with patient. Wishes to remain full code 08/19 Patient is still symptomatic, she still feels little tachypnea and coughing and some chest pain with coughing She is saturating 99% on 3 L oxygen, she is tachycardic with heart rate about 97, blood pressure was elevated but improving well after she was started on metoprolol 25 mg Repeat chest x-ray from yesterday showing slight improvement She is kept on IV Solu-Medrol 40 mg, Tamiflu and oral Bactrim. We are going to continue monitoring her for the next 2 days and further recommendation based on the clinical course Review of systems CONSTITUTIONAL: No fever, no malaise, no fatigue. GASTROINTESTINAL: No diarrhea, no nausea, no vomiting, no abdominal pain. Normoactive bowel sounds. NEUROLOGICAL: No headaches, no weakness, no numbness. HEMATOLOGICAL: Denies any bleeding or petechiae. GENITOURINARY: Denies any burning micturition, frequency, or urgency. MUSCULOSKELETAL/RHEUMATOLOGICAL: Denies any joint pain, swelling, or any muscle pain. ENDOCRINE: Denies any polyuria or polydipsia. Active Medications Generic Name Dose Route Start Last Admin Trade Name Freq PRN Reason Stop Dose Admin Acetaminophen 650 mg 08/15/24 22:28 08/17/24 18:26 Acetaminophen Tab 325 Mg Tab PO 650 mg Q6H PRN Administration Pain Albuterol Sulfate 2.5 mg 08/15/24 18:31 08/17/24 03:26 Albuterol Nebulized 2.5 Mg/3 Ml INHALATION 2.5 mg RT-TID PRN Administration Shortness Of Breath Or Wheezing Albuterol/Ipratropium 3 ml 08/18/24 17:30 08/19/24 08:04 Ipratropium-Albuterol 3 Ml Neb INHALATION Not Given RT-Q4H ASH Bisacodyl 5 mg 08/15/24 22:28 Bisacodyl 5 Mg Tablet.Dr PO DAILY PRN Constipation Budesonide/Formoterol Fumarate 2 puff 08/16/24 08:00 08/19/24 08:04 Symbicort 160-4.5 Mcg Inhaler INHALATION Not Given RT-BID ASH Calcium Carbonate/Glycine 1,000 mg 08/15/24 22:28 Calcium Carbonate 500 Mg Chewable PO Q4HR PRN GERD Enoxaparin Sodium 40 mg 08/18/24 09:00 08/19/24 09:04 Enoxaparin 40 Mg/0.4 Ml Syringe SQ 40 mg DAILY ASH Administration Guaifenesin 600 mg 08/15/24 22:30 08/19/24 09:05 Guaifenesin 600 Mg Tablet.Er PO 600 mg BID ASH Administration Latanoprost 1 drops 08/15/24 22:30 08/18/24 20:14 Latanoprost 0.005% Ophth Drops 2.5 Ml Btl BOTH EYES 1 drops HS ASH Administration Methylprednisolone Sodium Succinate 40 mg 08/18/24 08:00 08/19/24 09:04 Methylprednisolone Sod Succi 40 Mg/Ml 1 Ml Vial IV 40 mg Q8H ASH Administration Metoprolol Tartrate 25 mg 08/18/24 21:00 08/19/24 09:05 Metoprolol Tartrate 25 Mg Tab PO 25 mg BID ASH Administration Morphine Sulfate 4 mg 08/15/24 18:29 Morphine Sulfate 4 Mg/Ml Syringe IV Q4HR PRN Severe Pain (Scale 7 to 10) Naloxone HCl 0.2 mg 08/15/24 18:29 Naloxone 0.4 Mg/Ml 1 Ml Vial IV Q2M PRN Opioid Reversal Ondansetron HCl 4 mg 08/15/24 18:29 Ondansetron 4 Mg/2 Ml Vial IVP Q8HR PRN Nausea And Vomiting Oseltamivir Phosphate 75 mg 08/16/24 21:00 08/19/24 09:05 Oseltamivir 75 Mg Cap PO 08/21/24 09:01 75 mg Q12HR ASH Administration Protocol Pantoprazole Sodium 40 mg 08/16/24 07:30 08/19/24 06:32 Pantoprazole 40 Mg Tablet PO 40 mg [id number] ASH Administration Tramadol HCl 50 mg 08/15/24 22:28 08/17/24 23:35 Tramadol 50 Mg Tab PO 50 mg Q6H PRN Administration Pain Trimethoprim/Sulfamethoxazole 1 each 08/16/24 09:45 08/19/24 09:05 Sulfamethox-Tmp 800-160mg 1 Each Tab PO 1 each BID ASH Administration Protocol Objective - Vital Signs Vital signs: Vital Signs Temp 97.2 F L 08/19/24 08:00 Pulse 97 08/19/24 08:00 Resp 16 08/19/24 08:00 BP 199/88 08/19/24 08:00 Pulse Ox 95 08/19/24 08:00 FiO2 Intake & Output 08/18/24 08/19/24 08/19/24 18:59 06:59 18:59 Intake Total 540 Output Total 300 675 Balance 240 -675 Weight 58.4 kg Intake: Oral 540 Output: Urine 300 675 Other: Voiding Method External Catheter External Catheter External Catheter # Voids 1 1 # Bowel Movements 1 - Exam -GENERAL: The patient is alert and oriented x3, not in any acute distress. Well developed, well nourished. Generally weak HEENT: Pupils are round and equally reacting to light. EOMI. No scleral icterus. No conjunctival pallor. Normocephalic, atraumatic. No pharyngeal erythema. No thyromegaly. CARDIOVASCULAR: S1 and S2 present. No murmurs, rubs, or gallops. -PULMONARY: Chest is clear to auscultation, bilateral scattered wheezing , no crackles. ABDOMEN: Soft, nontender, nondistended, normoactive bowel sounds. No palpable organomegaly. MUSCULOSKELETAL: No joint swelling or deformity. EXTREMITIES: No cyanosis, clubbing, or pedal edema. NEUROLOGICAL: Gross neurological examination did not reveal any focal deficits. SKIN: No rashes. no petechiae. - Labs CBC & Chem 7: 08/16/24 06:35 08/19/24 06:53 Labs: Abnormal Lab Results - Last 24 Hours (Table) 08/19/24 Range/Units 06:53 Sodium 130 L (137-145) mmol/L Chloride 94 L (98-107) mmol/L Carbon Dioxide 34 H (22-30) mmol/L BUN 22 H (7-17) mg/dL Microbiology - Last 24 Hours (Table) 08/15/24 15:02 Blood Culture - Preliminary Blood Assessment and Plan Assessment: Assessment and plan: -Acute COPD exacerbation in a prior smoker, steroid-dependent: Worsening secondary to influenza A, causing sepsis: Slow to respond Increase DuoNeb every 4 hours.. IV Solu-Medrol,-40 mg every 8. -Acute pulmonary edema secondary IV fluids: Better Currently euvolemic, no IV fluid, no IV Lasix -Sepsis secondary to influenza A pneumonitis Continue with Tamiflu. Also continue with oral Bactrim -Acute metabolic encephalopathy and delirium secondary to above, POA: Better Improving -Chronic hypoxic respiratory failure secondary to underlying COPD 2 L of oxygen at home -Hyperlipidemia Lipitor 10 mg nightly -GERD Omeprazole -Chronic medical debility. At ECF At the baseline using a wheelchair. After fall has pain in the sacral area. -Hyperlipidemia Lipitor 10 mg with supper -Breast cancer-, triple negative. Received chemotherapy being followed by Dr. Garber from oncology. -Medical power of assistant district attorney:Gracie nascimento, sister -Full code
--- NOTE | 2024-08-19 13:30 | P.PN ---
Subjective Progress Note Date: 08/19/24 This is a 74-year-old female patient with a history of COPD, former smoker, stenotrophomonas pneumonia, hypertension, hyperlipidemia, right breast cancer status post 3 and chemoradiation. She was recently here less than 1 month ago after sustaining a fall a COPD exacerbation. Discharged to an extended care facility on August 01, 2024. They brought her back to the emergency room yesterday after finding her to have a fever and shortness of breath. The patient herself is somewhat of a poor historian and not clear as to why she was here. Her is at the bedside and provides most of the information. X- ray revealed no acute cardiopulmonary process. There is evidence of COPD. She was also noted to have a brief episode of atrial fibrillation with rapid ventricular response versus atrial tachycardia. She was initially on a Cardizem drip and a heparin drip. Seen by cardiology. She did have a temperature of 102.7. White count 5.2. Hemoglobin 11.8. Platelets 271. Sodium 134. Potassium 3.9. Bicarb 26. BUN 16. Creatinine 0.53. Glucose 156. She did test positive for influenza A. The patient is seen today August 17, 2024 in follow-up on the selective care unit. She is awake and alert in no acute distress. Resting fairly comfortably in bed. A bit stronger today compared to yesterday. Maintaining O2 saturations in the 90s on 4 L/min per nasal cannula. Still some wheezing. Blood culture reveals no growth. No new labs today. She is continued on DuoNeb inhalations, Symbicort, Solu-Medrol. Continued on Tamiflu. Continued on Bactrim prophylactically. She received Lasix early this morning and again this afternoon. Diuresed 1.4 L thus far. The patient is seen today August 18, 2024 in follow-up on the selective care unit. She is currently sitting up in a chair at the bedside. Awake and alert in no acute distress. She is still short of breath with conversation. Short of breath with minimal exertion. She is continued on DuoNeb and elations, Symbicort, Solu-Medrol. Continued on Tamiflu. Lovenox for DVT prophylaxis. Bactrim for pneumonia prophylaxis. Blood culture reveals no growth. Sodium 131. Potassium 4.2. Bicarb 31. BUN 21. Creatinine 0.74. Glucose 109. Currently in a -1.8 L balance. The patient is seen today August 19, 2024 in follow-up on the selective care unit. She is currently resting in bed. Awake and alert in no acute distress. Maintaining O2 saturations in the 90s on liters per minute per nasal cannula. She is afebrile. Hemodynamically stable. Blood culture revealed no growth. Sodium 130. Potassium 4.2. Bicarb 34. BUN 22. Creatinine 0.81. Glucose 97. She remains on DuoNeb inhalations, Symbicort, Solu-Medrol. Remains on Tamiflu. Remains on empiric antibiotics in the form of Bactrim. Lovenox for DVT prophyla xis. Continued on Mucinex for congestion. Currently in a -400 mL balance. Objective - Vital Signs Vital signs: Vital Signs Temp 97.8 F 08/19/24 12:43 Pulse 89 08/19/24 12:43 Resp 16 08/19/24 12:43 BP 188/84 08/19/24 12:43 Pulse Ox 100 08/19/24 12:43 FiO2 Intake & Output 08/18/24 08/19/24 08/19/24 18:59 06:59 18:59 Intake Total 540 Output Total 300 675 Balance 240 -675 Weight 58.4 kg Intake: Oral 540 Output: Urine 300 675 Other: Voiding Method External Catheter External Catheter External Catheter # Voids 1 1 # Bowel Movements 1 0 - Exam GENERAL EXAM: Alert, 74-year-old female, resting in bed, on 3 L nasal cannula, comfortable in no apparent distress. HEAD: Normocephalic. EYES: Normal reaction of pupils, equal size. NOSE: Clear with pink turbinates. THROAT: No erythema or exudates. NECK: No masses, no JVD. CHEST: No chest wall deformity. LUNGS: Equal air entry with bilateral end expiratory wheeze. CVS: S1 and S2 normal with no audible murmur, regular rhythm. ABDOMEN: No hepatosplenomegaly, normal bowel sounds, no guarding or rigidity. SPINE: No scoliosis or deformity SKIN: No rashes CENTRAL NERVOUS SYSTEM: No focal deficits, tone is normal in all 4 extremities. EXTREMITIES: There is no peripheral edema. No clubbing, no cyanosis. Peripheral pulses are intact. - Labs CBC & Chem 7: 08/16/24 06:35 08/19/24 06:53 Labs: Abnormal Lab Results - Last 24 Hours (Table) 08/19/24 Range/Units 06:53 Sodium 130 L (137-145) mmol/L Chloride 94 L (98-107) mmol/L Carbon Dioxide 34 H (22-30) mmol/L BUN 22 H (7-17) mg/dL Microbiology - Last 24 Hours (Table) 08/15/24 15:02 Blood Culture - Preliminary Blood Assessment and Plan Assessment: Febrile illness secondary to acute influenza A infection. Chest x-ray shows no acute cardiopulmonary process Acute influenza A infection Acute exacerbation of chronic obstructive pulmonary disease Acute on chronic hypoxemic respiratory failure secondary to above Previous history of Pseudomonas and stenotrophomonas lung infections Brief episode of atrial fibrillation versus multifocal atrial tachycardia Recent discharge on August 01, 2024 to an ECF following a fall and compression fracture of L1 vertebrae, conservatively managed with a TLSO brace Severe oxygen and steroid-dependent chronic obstructive pulmonary disease, not in exacerbation Chronic hypoxemic respiratory failure, secondary to above Altered mental status and suspected acute delirium History of hyperlipidemia History of breast cancer status post chemotherapy Gastroesophageal reflux disease Plan: The patient was seen and evaluated Medications and labs reviewed Continue DuoNeb inhalations, Symbicort Continue Solu-Medrol Continue Bactrim Lovenox for DVT prophylaxis Continue Tamiflu Titrate down the FiO2 as tolerated Plan is to return to [facility] I have personally seen and examined the patient, performed the documentation and the assessment and plan as written. Number of minutes spent on the visit: 10 Dictation was produced using [employer] dictation software. Please excuse any gr ammatical, word or spelling errors.
[2024-08-20] MEDS: hydrALAZINE HCL 20 MG/ML 1 ML VIAL IVP PRN (09:41)
--- NOTE | 2024-08-20 10:44 | P.PN ---
Subjective 73-year-old patient, follows with Dr. Mohan. Manager [employer] Dr. Parker. Oncologist Dr. Garber. Currently a resident of [facility]. Patient is at [facility]. Patient rather lethargic not really able to give me much of history. Sent in for shortness of breath fever. August 16: Overflowing the ER. Patient sister at the bedside. More awake today short of breath. Able to answer questions. Patient took a fall sometime ago. With lower back pain. Has not really been ambulatory because of the same. On a wheelchair. Patient presented 24 hours of fever. Increased cough. Not able to expectorate. The congested. Decreased appetite. Patient tested positive for influenza A. Tamiflu being started. Feels a bit better today. 2 L nasal ca nnula. COPD exacerbation. Bactrim DS added by pulmonary. August 17: Patient seen by me this morning. Was more short of breath. IV fluids discontinued. Dose of IV Lasix given. Over a liter of fluid was put out. I did repeat a dose of IV Lasix this afternoon. Because of crackles in the lungs. Oral intake better. August 18: Reclining in bed. Tired. Short of breath. Congested chest. Not abl e to expectorate. Discussed with Dr. Parker. Will see how patient does. Continue with IV Solu-Medrol oral Bactrim DuoNeb. Jcarlos will be increased to every 4. Did eat about 50% of breakfast lunch. P.o. Lasix added by pulmonary. Discussed with patient. Wishes to remain full code 08/19 Patient is still symptomatic, she still feels little tachypnea and coughing and some chest pain with coughing She is saturating 99% on 3 L oxygen, she is tachycardic with heart rate about 97, blood pressure was elevated but improving well after she was started on metoprolol 25 mg Repeat chest x-ray from yesterday showing slight improvement She is kept on IV Solu-Medrol 40 mg, Tamiflu and oral Bactrim. We are going to continue monitoring her for the next 2 days and further recommendation based on the clinical course 08/20 patient still short of breath tachypneic She still has coughing No chest pain No new complaint She is 97% on 3 L oxygen via nasal cannula Sodium 130. Rest of labs look stable. Patient remains on IV Solu-Medrol Objective - Vital Signs Vital signs: Vital Signs Temp 97.6 F 08/20/24 07:45 Pulse 78 08/20/24 07:45 Resp 18 08/20/24 07:45 BP 184/72 08/20/24 07:45 Pulse Ox 97 08/20/24 07:45 FiO2 Intake & Output 08/19/24 08/20/24 08/20/24 18:59 06:59 18:59 Intake Total 240 Output Total 500 700 Balance -260 -700 Weight 59.5 kg Intake: Oral 240 Output: Urine 500 700 Other: Voiding Method External Catheter External Catheter External Catheter # Voids 1 # Bowel Movements 0 - Exam -GENERAL: The patient is alert and oriented x3, not in any acute distress. Well developed, well nourished. Generally weak HEENT: Pupils are round and equally reacting to light. EOMI. No scleral icterus. No conjunctival pallor. Normocephalic, atraumatic. No pharyngeal erythema. No thyromegaly. CARDIOVASCULAR: S1 and S2 present. No murmurs, rubs, or gallops. -PULMONARY: Chest is clear to auscultation, bilateral scattered wheezing , no crackles. ABDOMEN: Soft, nontender, nondistended, normoactive bowel sounds. No palpable organomegaly. MUSCULOSKELETAL: No joint swelling or deformity. EXTREMITIES: No cyanosis, clubbing, or pedal edema. NEUROLOGICAL: Gross neurological examination did not reveal any focal deficits. SKIN: No rashes. no petechiae. - Labs CBC & Chem 7: 08/16/24 06:35 08/19/24 06:53 Assessment and Plan Assessment: Assessment and plan: -Acute COPD exacerbation in a prior smoker, steroid-dependent: Worsening secondary to influenza A, causing sepsis: Slow to respond Increase DuoNeb every 4 hours.. IV Solu-Medrol,-40 mg every 8. -Acute pulmonary edema secondary IV fluids: Better Currently euvolemic, no IV fluid, no IV Lasix -Sepsis secondary to influenza A pneumonitis Continue with Tamiflu. Also continue with oral Bactrim -Acute metabolic encephalopathy and delirium secondary to above, POA: Better Improving -Chronic hypoxic respiratory failure secondary to underlying COPD 2 L of oxygen at home -Hyperlipidemia Lipitor 10 mg nightly -GERD Omeprazole -Chronic medical debility. At ECF At the baseline using a wheelchair. After fall has pain in the sacral area. -Hyperlipidemia Lipitor 10 mg with supper -Breast cancer-, triple negative. Received chemotherapy being followed by Dr. Garber from oncology. -Medical power of state attorney:Gracie nascimento, sister -Full code
--- NOTE | 2024-08-20 13:49 | P.PN ---
Subjective Progress Note Date: 08/20/24 This is a 74-year-old female patient with a history of COPD, former smoker, stenotrophomonas pneumonia, hypertension, hyperlipidemia, right breast cancer status post 3 and chemoradiation. She was recently here less than 1 month ago after sustaining a fall a COPD exacerbation. Discharged to an extended care facility on August 01, 2024. They brought her back to the emergency room yesterday after finding her to have a fever and shortness of breath. The patient herself is somewhat of a poor historian and not clear as to why she was here. Her is at the bedside and provides most of the information. X- ray revealed no acute cardiopulmonary process. There is evidence of COPD. She was also noted to have a brief episode of atrial fibrillation with rapid ventricular response versus atrial tachycardia. She was initially on a Cardizem drip and a heparin drip. Seen by cardiology. She did have a temperature of 102.7. White count 5.2. Hemoglobin 11.8. Platelets 271. Sodium 134. Potassium 3.9. Bicarb 26. BUN 16. Creatinine 0.53. Glucose 156. She did test positive for influenza A. The patient is seen today August 17, 2024 in follow-up on the selective care unit. She is awake and alert in no acute distress. Resting fairly comfortably in bed. A bit stronger today compared to yesterday. Maintaining O2 saturations in the 90s on 4 L/min per nasal cannula. Still some wheezing. Blood culture reveals no growth. No new labs today. She is continued on DuoNeb inhalations, Symbicort, Solu-Medrol. Continued on Tamiflu. Continued on Bactrim prophylactically. She received Lasix early this morning and again this afternoon. Diuresed 1.4 L thus far. The patient is seen today August 18, 2024 in follow-up on the selective care unit. She is currently sitting up in a chair at the bedside. Awake and alert in no acute distress. She is still short of breath with conversation. Short of breath with minimal exertion. She is continued on DuoNeb and elations, Symbicort, Solu-Medrol. Continued on Tamiflu. Lovenox for DVT prophylaxis. Bactrim for pneumonia prophylaxis. Blood culture reveals no growth. Sodium 131. Potassium 4.2. Bicarb 31. BUN 21. Creatinine 0.74. Glucose 109. Currently in a -1.8 L balance. The patient is seen today August 19, 2024 in follow-up on the selective care unit. She is currently resting in bed. Awake and alert in no acute distress. Maintaining O2 saturations in the 90s on liters per minute per nasal cannula. She is afebrile. Hemodynamically stable. Blood culture revealed no growth. Sodium 130. Potassium 4.2. Bicarb 34. BUN 22. Creatinine 0.81. Glucose 97. She remains on DuoNeb inhalations, Symbicort, Solu-Medrol. Remains on Tamiflu. Remains on empiric antibiotics in the form of Bactrim. Lovenox for DVT prophyla xis. Continued on Mucinex for congestion. Currently in a -400 mL balance. The patient is seen today August 19, 2024 in follow-up on the selective care unit. She is awake and alert in no acute distress. Currently resting fairly comfortably in bed. She still has some loose congested cough. She is maintaining good O2 saturations in the upper 90s on 3 L/min per nasal cannula. She is afebrile. Hemodynamically stable. Blood culture reveals no growth. She remains on DuoNeb inhalations, Symbicort, Solu-Medrol. Remains on Tamiflu. The patient has been refusing some of her medications today. Objective - Vital Signs Vital signs: Vital Signs Temp 98.2 F 08/20/24 12:34 Pulse 101 H 08/20/24 12:34 Resp 18 08/20/24 12:34 BP 138/66 08/20/24 12:34 Pulse Ox 98 08/20/24 12:34 FiO2 Intake & Output 08/19/24 08/20/24 08/20/24 18:59 06:59 18:59 Intake Total 240 Output Total 500 700 Balance -260 -700 Weight 59.5 kg Intake: Oral 240 Output: Urine 500 700 Other: Voiding Method External Catheter External Catheter External Catheter # Voids 1 # Bowel Movements 0 - Exam GENERAL EXAM: Alert, very weak 74-year-old female, on 3 L nasal cannula, comfortable in no apparent distress. HEAD: Normocephalic. EYES: Normal reaction of pupils, equal size. NOSE: Clear with pink turbinates. THROAT: No erythema or exudates. NECK: No masses, no JVD. CHEST: No chest wall deformity. LUNGS: Equal air entry with bilateral end expiratory wheeze. CVS: S1 and S2 normal with no audible murmur, regular rhythm. ABDOMEN: No hepatosplenomegaly, normal bowel sounds, no guarding or rigidity. SPINE: No scoliosis or deformity SKIN: No rashes CENTRAL NERVOUS SYSTEM: No focal deficits, tone is normal in all 4 extremities. EXTREMITIES: There is no peripheral edema. No clubbing, no cyanosis. Peripheral pulses are intact. - Labs CBC & Chem 7: 08/16/24 06:35 08/19/24 06:53 Assessment and Plan Assessment: Febrile illness secondary to acute influenza A infection. Chest x-ray shows no acute cardiopulmonary process Acute influenza A infection Acute exacerbation of chronic obstructive pulmonary disease Acute on chronic hypoxemic respiratory failure secondary to above Previous history of Pseudomonas and stenotrophomonas lung infections Brief episode of atrial fibrillation versus multifocal atrial tachycardia Recent discharge on August 01, 2024 to an ECF following a fall and compression fracture of L1 vertebrae, conservatively managed with a TLSO brace Severe oxygen and steroid-dependent chronic obstructive pulmonary disease, not i n exacerbation Chronic hypoxemic respiratory failure, secondary to above Altered mental status and suspected acute delirium History of hyperlipidemia History of breast cancer status post chemotherapy Gastroesophageal reflux disease Plan: The patient was seen and evaluated Medications reviewed Continue DuoNeb inhalations, Symbicort Continue Solu-Medrol Continue Bactrim Lovenox for DVT prophylaxis Continue Tamiflu The patient has been refusing some medications this morning Educated regarding the importance of medication compliance Plan is to return to [facility] at discharge I have personally seen and examined the patient, performed the documentation and the assessment and plan as written. Number of minutes spent on the visit: 10 Dictation was produced using [employer] dictation software. Please excuse any grammatical, word or spelling errors.
--- NOTE | 2024-08-21 10:15 | P.PN ---
Subjective 73-year-old patient, follows with Dr. Mohan. Count Room Clerk Dr. Parker. Oncologist Dr. Garber. Currently a resident of [facility]. Patient is at [facility]. Patient rather lethargic not really able to give me much of history. Sent in for shortness of breath fever. August 16: Overflowing the ER. Patient sister at the bedside. More awake today short of breath. Able to answer questions. Patient took a fall sometime ago. With lower back pain. Has not really been ambulatory because of the same. On a wheelchair. Patient presented 24 hours of fever. Increased cough. Not able to expectorate. The congested. Decreased appetite. Patient tested positive for influenza A. Tamiflu being started. Feels a bit better today. 2 L nasal ca nnula. COPD exacerbation. Bactrim DS added by pulmonary. August 17: Patient seen by me this morning. Was more short of breath. IV fluids discontinued. Dose of IV Lasix given. Over a liter of fluid was put out. I did repeat a dose of IV Lasix this afternoon. Because of crackles in the lungs. Oral intake better. August 18: Reclining in bed. Tired. Short of breath. Congested chest. Not abl e to expectorate. Discussed with Dr. Parker. Will see how patient does. Continue with IV Solu-Medrol oral Bactrim DuoNeb. Jcarlos will be increased to every 4. Did eat about 50% of breakfast lunch. P.o. Lasix added by pulmonary. Discussed with patient. Wishes to remain full code 08/19 Patient is still symptomatic, she still feels little tachypnea and coughing and some chest pain with coughing She is saturating 99% on 3 L oxygen, she is tachycardic with heart rate about 97, blood pressure was elevated but improving well after she was started on metoprolol 25 mg Repeat chest x-ray from yesterday showing slight improvement She is kept on IV Solu-Medrol 40 mg, Tamiflu and oral Bactrim. We are going to continue monitoring her for the next 2 days and further recommendation based on the clinical course 08/20 patient still short of breath tachypneic She still has coughing No chest pain No new complaint She is 97% on 3 L oxygen via nasal cannula Sodium 130. Rest of labs look stable. Patient remains on IV Solu-Medrol 08/21 Patient still feels tired and lethargic She is still tachypneic and wheezing She is on 3 L oxygen via nasal cannula with saturation in the mid 90s No chest pain, no other new complaint On IV Solu-Medrol Check labs in the morning Objective - Vital Signs Vital signs: Vital Signs Temp 97.7 F 08/20/24 20:00 Pulse 91 08/21/24 04:10 Resp 20 08/21/24 04:10 BP 147/67 08/21/24 04:10 Pulse Ox 92 L 08/21/24 04:10 FiO2 Intake & Output 08/20/24 08/21/24 08/21/24 18:59 06:59 18:59 Intake Total 20 Output Total 600 Balance -580 Weight 59 kg Intake: IV 20 Invasive Line 3 20 Output: Urine 600 Other: Voiding Method External Catheter External Catheter # Voids 1 # Bowel Movements 1 - Exam -GENERAL: The patient is alert and oriented x3, not in any acute distress. Well developed, well nourished. Generally weak HEENT: Pupils are round and equally reacting to light. EOMI. No scleral icterus. No conjunctival pallor. Normocephalic, atraumatic. No pharyngeal erythema. No thyromegaly. CARDIOVASCULAR: S1 and S2 present. No murmurs, rubs, or gallops. -PULMONARY: Chest is clear to auscultation, bilateral scattered wheezing , no crackles. ABDOMEN: Soft, nontender, nondistended, normoactive bowel sounds. No palpable organomegaly. MUSCULOSKELETAL: No joint swelling or deformity. EXTREMITIES: No cyanosis, clubbing, or pedal edema. NEUROLOGICAL: Gross neurological examination did not reveal any focal deficits. SKIN: No rashes. no petechiae. - Labs CBC & Chem 7: 08/16/24 06:35 08/19/24 06:53 Labs: Microbiology - Last 24 Hours (Table) 08/15/24 15:02 Blood Culture - Final Blood Assessment and Plan Assessment: Assessment and plan: -Acute COPD exacerbation in a prior smoker, steroid-dependent: Worsening secondary to influenza A, causing sepsis: Slow to respond Increase DuoNeb every 4 hours.. IV Solu-Medrol,-40 mg every 8. -Acute pulmonary edema secondary IV fluids: Better Currently euvolemic, no IV fluid, no IV Lasix -Sepsis secondary to influenza A pneumonitis Continue with Tamiflu. Also continue with oral Bactrim -Acute metabolic encephalopathy and delirium secondary to above, POA: Better Improving -Chronic hypoxic respiratory failure secondary to underlying COPD 2 L of oxygen at home -Hyperlipidemia Lipitor 10 mg nightly -GERD Omeprazole -Chronic medical debility. At ECF At the baseline using a wheelchair. After fall has pain in the sacral area. -Hyperlipidemia Lipitor 10 mg with supper -Breast cancer-, triple negative. Received chemotherapy being followed by Dr. Garber from oncology. -Medical power of prosecuting attorney:Gracie nascimento, sister -Full code
--- NOTE | 2024-08-21 15:19 | P.PN ---
Subjective Progress Note Date: 08/21/24 Principal diagnosis: Influenza A. This is a 74-year-old female patient with a history of COPD, former smoker, stenotrophomonas pneumonia, hypertension, hyperlipidemia, right breast cancer status post 3 and chemoradiation. She was recently here less than 1 month ago after sustaining a fall a COPD exacerbation. Discharged to an extended care facility on August 01, 2024. They brought her back to the emergency room yesterday after finding her to have a fever and shortness of breath. The patient herself is somewhat of a poor historian and not clear as to why she was here. Her is at the bedside and provides most of the information. X- ray revealed no acute cardiopulmonary process. There is evidence of COPD. She was also noted to have a brief episode of atrial fibrillation with rapid ventricular response versus atrial tachycardia. She was initially on a Cardizem drip and a heparin drip. Seen by cardiology. She did have a temperature of 102.7. White count 5.2. Hemoglobin 11.8. Platelets 271. Sodium 134. Potassium 3.9. Bicarb 26. BUN 16. Creatinine 0.53. Glucose 156. She did test positive for influenza A. The patient is seen today August 17, 2024 in follow-up on the selective care unit. She is awake and alert in no acute distress. Resting fairly comfortably in bed. A bit stronger today compared to yesterday. Maintaining O2 saturations in the 90s on 4 L/min per nasal cannula. Still some wheezing. Blood culture reveals no growth. No new labs today. She is continued on DuoNeb inhalations, Symbicort, Solu-Medrol. Continued on Tamiflu. Continued on Bactrim prophylactically. She received Lasix early this morning and again this af ternoon. Diuresed 1.4 L thus far. The patient is seen today August 18, 2024 in follow-up on the selective care unit. She is currently sitting up in a chair at the bedside. Awake and alert in no acute distress. She is still short of breath with conversation. Short of breath with minimal exertion. She is continued on DuoNeb and elations, Symbicort, Solu-Medrol. Continued on Tamiflu. Lovenox for DVT prophylaxis. Bactrim for pneumonia prophylaxis. Blood culture reveals no growth. Sodium 1 31. Potassium 4.2. Bicarb 31. BUN 21. Creatinine 0.74. Glucose 109. Currently in a -1.8 L balance. The patient is seen today August 19, 2024 in follow-up on the selective care unit. She is currently resting in bed. Awake and alert in no acute distress. Maintaining O2 saturations in the 90s on liters per minute per nasal cannula. She is afebrile. Hemodynamically stable. Blood culture revealed no growth. Sodium 130. Potassium 4.2. Bicarb 34. BUN 22. Creatinine 0.81. Glucose 97. She remains on DuoNeb inhalations, Symbicort, Solu-Medrol. Remains on Tamiflu. Remains on empiric antibiotics in the form of Bactrim. Lovenox for DVT prophylaxis. Continued on Mucinex for congestion. Currently in a -400 mL balance. The patient is seen today August 19, 2024 in follow-up on the selective care unit. She is awake and alert in no acute distress. Currently resting fairly comfortably in bed. She still has some loose congested cough. She is maintaining good O2 saturations in the upper 90s on 3 L/min per nasal cannula. She is afebrile. Hemodynamically stable. Blood culture reveals no growth. She remains on DuoNeb inhalations, Symbicort, Solu-Medrol. Remains on Tamiflu. The patient has been refusing some of her medications today. Progress note dated August 21, 2024. 74-year-old female seen today in room 383. The patient is resting comfortably in bed. She is awake and alert. She is currently on 3 L nasal cannula. She is not receiving any IV fluids. She was admitted with a diagnosis of COPD exacerbation, and influenza A infection. No new laboratory data today. The most recent laboratory data was dated August 19, 2024. Objective - Vital Signs Vital signs: Vital Signs Temp 98.0 F 08/21/24 08:00 Pulse 76 08/21/24 13:16 Resp 18 08/21/24 08:00 BP 165/76 08/21/24 08:00 Pulse Ox 99 08/21/24 08:00 FiO2 Intake & Output 08/20/24 08/21/24 08/21/24 18:59 06:59 18:59 Intake Total 20 250 Output Total 600 Balance -580 250 Weight 59 kg Intake: IV 20 10 Invasive Line 3 20 10 Oral 240 Output: Urine 600 Other: Voiding Method External Catheter External Catheter External Catheter # Voids 1 # Bowel Movements 1 - Exam No acute distress, oriented 3. No respiratory distress. The patient is currently on 3 L. HEENT examination is grossly unremarkable. Mucous membranes are moist. No oral lesions. Neck supple. Full range of motion. No adenopathy thyromegaly or neck vein distention. Cardiovascular examination reveals regular rhythm rate. S1-S2 normal. No S3 or S4. No discernible murmur noted. Heart sounds are distant. Lungs reveal bilateral expiratory wheezes and rhonchi. No crackles. Breath sounds equal bilaterally. Abdomen soft bowel sounds are heard. No masses or tenderness. Extremities are intact. No cyanosis clubbing or edema. Skin is without rash or lesion. Neurologic examination is brief but nonfocal. - Labs CBC & Chem 7: 08/16/24 06:35 08/19/24 06:53 Labs: Microbiology - Last 24 Hours (Table) 08/15/24 15:02 Blood Culture - Final Blood Assessment and Plan Assessment: Febrile illness secondary to acute influenza A infection. Acute influenza A infection. Acute exacerbation of chronic obstructive pulmonary disease. Acute on chronic hypoxemic respiratory failure secondary to above. Previous history of Pseudomonas and stenotrophomonas lung infections. Brief episode of atrial fibrillation versus multifocal atrial tachycardia. Recent discharge on August 01, 2024 to an ECF following a fall and compression fracture of L1 vertebrae, conservatively managed with a TLSO brace. Severe oxygen and steroid-dependent chronic obstructive pulmonary disease. Chronic hypoxemic respiratory failure, secondary to above. Altered mental status and suspected acute delirium. History of hyperlipidemia. History of breast cancer status post chemotherapy. Gastroesophageal reflux disease. Plan: Plan dated August 21, 2024. The patient is seen today in room 383. She can she is in, 3 L. She is in no respiratory distress. She is resting comfortably in bed. She is awake and alert. There is no audible wheezing, conversational dyspnea, or use of ac cessory muscles. All labs, x-rays, and medications are reviewed. The patient is overall prognosis remains guarded. She continues on updraft treatments, steroids, and antibiotics. We will continue to follow, make recommendations along the way. She needs to complete 5 days of Tamiflu. Prognosis is guarded. She remains a full code patient. Time with Patient: Less than 30
[2024-08-22 07:20] LABS: Basophils % (A) 0 %; Eosinophils % (A) 0 %; HCT 35.7 % (34.0-46.0); Lymphocytes # (A) 0.1 k/uL (1.0-4.8); Lymphocytes % (A) 2 %; MCH 31.2 pg (25.0-35.0); MCHC 33.6 g/dL (31.0-37.0); MCV 92.9 fL (80.0-100.0); Mean Platelet Volume 7.2; Monocytes # (A) 0.3 k/uL (0-1.0); Monocytes % (A) 5 %; Neutrophils # (A) 6.5 k/uL (1.3-7.7); Neutrophils % (A) 93 %; Platelet Count 248 k/uL (150-450); RBC 3.84 m/uL (3.80-5.40); RDW 13.8 % (11.5-15.5)
[2024-08-22 07:28] LABS: African American GFR (CKD) >90 (>60 ml/min/1.73 sqM); Anion Gap 0 mmol/L; Blood Urea Nitrogen 21 mg/dL (7-17); Calcium 8.6 mg/dL (8.4-10.2); Carbon Dioxide 35 mmol/L (22-30); Chloride 95 mmol/L (98-107); Glucose 135 mg/dL (74-99); Non-African American GFR(CKD) 90 (>60 ml/min/1.73 sqM); Potassium 4.4 mmol/L (3.5-5.1); Sodium 130 mmol/L (137-145)
--- NOTE | 2024-08-22 12:25 | P.PN ---
Subjective Progress Note Date: 08/22/24 Principal diagnosis: Influenza A. This is a 74-year-old female patient with a history of COPD, former smoker, stenotrophomonas pneumonia, hypertension, hyperlipidemia, right breast cancer status post 3 and chemoradiation. She was recently here less than 1 month ago after sustaining a fall a COPD exacerbation. Discharged to an extended care facility on August 01, 2024. They brought her back to the emergency room yesterday after finding her to have a fever and shortness of breath. The patient herself is somewhat of a poor historian and not clear as to why she was here. Her is at the bedside and provides most of the information. X- ray revealed no acute cardiopulmonary process. There is evidence of COPD. She was also noted to have a brief episode of atrial fibrillation with rapid ventricular response versus atrial tachycardia. She was initially on a Cardizem drip and a heparin drip. Seen by cardiology. She did have a temperature of 102.7. White count 5.2. Hemoglobin 11.8. Platelets 271. Sodium 134. Potassium 3.9. Bicarb 26. BUN 16. Creatinine 0.53. Glucose 156. She did test positive for influenza A. The patient is seen today August 17, 2024 in follow-up on the selective care unit. She is awake and alert in no acute distress. Resting fairly comfortably in bed. A bit stronger today compared to yesterday. Maintaining O2 saturations in the 90s on 4 L/min per nasal cannula. Still some wheezing. Blood culture reveals no growth. No new labs today. She is continued on DuoNeb inhalations, Symbicort, Solu-Medrol. Continued on Tamiflu. Continued on Bactrim prophylactically. She received Lasix early this morning and again this af ternoon. Diuresed 1.4 L thus far. The patient is seen today August 18, 2024 in follow-up on the selective care unit. She is currently sitting up in a chair at the bedside. Awake and alert in no acute distress. She is still short of breath with conversation. Short of breath with minimal exertion. She is continued on DuoNeb and elations, Symbicort, Solu-Medrol. Continued on Tamiflu. Lovenox for DVT prophylaxis. Bactrim for pneumonia prophylaxis. Blood culture reveals no growth. Sodium 1 31. Potassium 4.2. Bicarb 31. BUN 21. Creatinine 0.74. Glucose 109. Currently in a -1.8 L balance. The patient is seen today August 19, 2024 in follow-up on the selective care unit. She is currently resting in bed. Awake and alert in no acute distress. Maintaining O2 saturations in the 90s on liters per minute per nasal cannula. She is afebrile. Hemodynamically stable. Blood culture revealed no growth. Sodium 130. Potassium 4.2. Bicarb 34. BUN 22. Creatinine 0.81. Glucose 97. She remains on DuoNeb inhalations, Symbicort, Solu-Medrol. Remains on Tamiflu. Remains on empiric antibiotics in the form of Bactrim. Lovenox for DVT prophylaxis. Continued on Mucinex for congestion. Currently in a -400 mL balance. The patient is seen today August 19, 2024 in follow-up on the selective care unit. She is awake and alert in no acute distress. Currently resting fairly comfortably in bed. She still has some loose congested cough. She is maintaining good O2 saturations in the upper 90s on 3 L/min per nasal cannula. She is afebrile. Hemodynamically stable. Blood culture reveals no growth. She remains on DuoNeb inhalations, Symbicort, Solu-Medrol. Remains on Tamiflu. The patient has been refusing some of her medications today. Progress note dated August 21, 2024. 74-year-old female seen today in room 383. The patient is resting comfortably in bed. She is awake and alert. She is currently on 3 L nasal cannula. She is not receiving any IV fluids. She was admitted with a diagnosis of COPD exacerbation, and influenza A infection. No new laboratory data today. The most recent laboratory data was dated August 19, 2024. Progress note dated August 22, 2024. 74-year-old female seen today in room 383. She is sitting at the edge of the bed. She is currently on 3 L nasal cannula. She is not receiving any IV fluids. She is awake and alert. She is not having any overt respiratory distress or difficulty. Laboratory data today includes a white count 7, h emoglobin 12, hematocrit 35.7, and a platelet count of 248,000. Sodium 130, potassium 4.4, chloride 95, CO2 35, BUN 21, and creatinine 0.61. Glucose is 135. Objective - Vital Signs Vital signs: Vital Signs Temp 97.7 F 08/22/24 08:00 Pulse 90 08/22/24 08:00 Resp 18 08/22/24 08:00 BP 184/83 08/22/24 08:00 Pulse Ox 98 08/22/24 08:00 FiO2 Intake & Output 08/21/24 08/22/24 08/22/24 18:59 06:59 18:59 Intake Total 500 20 10 Output Total 200 300 Balance 300 -280 10 Weight 59 kg Intake: IV 20 20 10 Invasive Line 3 20 20 10 Oral 480 Output: Urine 200 300 Other: Voiding Method External Catheter External Catheter External Catheter # Voids 1 1 # Bowel Movements 2 - Exam No acute distress, oriented 3. No respiratory distress. The patient is currently on 3 L. HEENT examination is grossly unremarkable. Mucous membranes are moist. No oral lesions. Neck supple. Full range of motion. No adenopathy thyromegaly or neck vein distention. Cardiovascular examination reveals regular rhythm rate. S1-S2 normal. No S3 or S4. No discernible murmur noted. Heart sounds are distant. Lungs reveal bilateral expiratory wheezes and rhonchi. No crackles. Breath sounds equal bilaterally. Abdomen soft bowel sounds are heard. No masses or tenderness. Extremities are intact. No cyanosis clubbing or edema. Skin is without rash or lesion. Neurologic examination is brief but nonfocal. - Labs CBC & Chem 7: 08/22/24 06:46 08/22/24 06:46 Labs: Abnormal Lab Results - Last 24 Hours (Table) 08/22/24 08/22/24 Range/Units 06:46 06:46 Lymphocytes # 0.1 L (1.0-4.8) k/uL Sodium 130 L (137-145) mmol/L Chloride 95 L (98-107) mmol/L Carbon Dioxide 35 H (22-30) mmol/L BUN 21 H (7-17) mg/dL Glucose 135 H (74-99) mg/dL Assessment and Plan Assessment: Febrile illness secondary to acute influenza A infection. Acute influenza A infection. Acute exacerbation of chronic obstructive pulmonary disease. Acute on chronic hypoxemic respiratory failure secondary to above. Previous history of Pseudomonas and stenotrophomonas lung infections. Brief episode of atrial fibrillation versus multifocal atrial tachycardia. Recent discharge on August 01, 2024 to an ECF following a fall and compression fracture of L1 vertebrae, conservatively managed with a TLSO brace. Severe oxygen and steroid-dependent chronic obstructive pulmonary disease. Chronic hypoxemic respiratory failure, secondary to above. Altered mental status and suspected acute delirium. History of hyperlipidemia. History of breast cancer status post chemotherapy. Gastroesophageal reflux disease. Plan: Plan dated August 21, 2024. The patient is seen today in room 383. She can she is in, 3 L. She is in no respiratory distress. She is resting comfortably in bed. She is awake and alert. There is no audible wheezing, conversational dyspnea, or use of accessory muscles. All labs, x-rays, and medications are reviewed. The patient is overall prognosis remains guarded. She continues on updraft treatments, steroids, and antibiotics. We will continue to follow, make recommendations along the way. She needs to complete 5 days of Tamiflu. Prognosis is guarded. She remains a full code patient. Plan dated August 22, 2024. The patient appears to be doing relatively well. She continues on oxygen at 3 L. She is not having any respiratory difficulty or distress. Medications are reviewed. Labs are reviewed. We will continue to follow make recommendations along the way. Prognosis is guarded. The patient has completed 5 days of Tamiflu. She remains a full code. Prognosis is guarded. Dictation was pro duced using [id number] dictation software. Please excuse any grammatical, word or spelling errors. Time with Patient: Less than 30
[2024-08-22 14:37] VITALS: BMI 19.8
[2024-08-22] MEDS ORDERED: hydrALAZINE HCL 20 MG/ML 1 ML VIAL IVP PRN (17:47)
[2024-08-22] MEDS: amLODIPine 10 MG TAB PO SCH (18:20)
[2024-08-22] MEDS: hydrALAZINE HCL 25 MG TAB PO SCH (18:50)
--- NOTE | 2024-08-22 19:37 | P.PN ---
Subjective 73-year-old patient, follows with Dr. Mohan. Swimming Pool Servicer Dr. Parker. Oncologist Dr. Garber. Currently a resident of [facility]. Patient is at [facility]. Patient rather lethargic not really able to give me much of history. Sent in for shortness of breath fever. August 16: Overflowing the ER. Patient sister at the bedside. More awake today short of breath. Able to answer questions. Patient took a fall sometime ago. With lower back pain. Has not really been ambulatory because of the same. On a wheelchair. Patient presented 24 hours of fever. Increased cough. Not able to expectorate. The congested. Decreased appetite. Patient tested positive for influenza A. Tamiflu being started. Feels a bit better today. 2 L nasal ca nnula. COPD exacerbation. Bactrim DS added by pulmonary. August 17: Patient seen by me this morning. Was more short of breath. IV fluids discontinued. Dose of IV Lasix given. Over a liter of fluid was put out. I did repeat a dose of IV Lasix this afternoon. Because of crackles in the lungs. Oral intake better. August 18: Reclining in bed. Tired. Short of breath. Congested chest. Not abl e to expectorate. Discussed with Dr. Parker. Will see how patient does. Continue with IV Solu-Medrol oral Bactrim DuoNeb. Jcarlos will be increased to every 4. Did eat about 50% of breakfast lunch. P.o. Lasix added by pulmonary. Discussed with patient. Wishes to remain full code 08/19 Patient is still symptomatic, she still feels little tachypnea and coughing and some chest pain with coughing She is saturating 99% on 3 L oxygen, she is tachycardic with heart rate about 97, blood pressure was elevated but improving well after she was started on metoprolol 25 mg Repeat chest x-ray from yesterday showing slight improvement She is kept on IV Solu-Medrol 40 mg, Tamiflu and oral Bactrim. We are going to continue monitoring her for the next 2 days and further recommendation based on the clinical course 08/20 patient still short of breath tachypneic She still has coughing No chest pain No new complaint She is 97% on 3 L oxygen via nasal cannula Sodium 130. Rest of labs look stable. Patient remains on IV Solu-Medrol 08/21 Patient still feels tired and lethargic She is still tachypneic and wheezing She is on 3 L oxygen via nasal cannula with saturation in the mid 90s No chest pain, no other new complaint On IV Solu-Medrol Check labs in the morning 08/22 Patient breathing is improving she still has wheezing Patient herself she feels she can go to rehab today if cleared However patient will need to be on steroids still. Will continue monitoring for another 24 to 48 hours and may be considered for discharge if she improves and cleared by pulmonary service Her blood pressure on the high side, Norvasc 10 mg and IV hydralazine as needed increased from 5 mg up to 10 mg Objective - Vital Signs Vital signs: Vital Signs Temp 97.7 F 08/22/24 16:00 Pulse 80 08/22/24 16:00 Resp 18 08/22/24 16:00 BP 185/77 08/22/24 16:00 Pulse Ox 95 08/22/24 16:00 FiO2 Intake & Output 08/22/24 08/22/24 08/23/24 06:59 18:59 06:59 Intake Total 20 260 Output Total 300 450 Balance -280 -190 Weight 59 kg 59 kg Intake: IV 20 20 Invasive Line 3 20 20 Oral 240 Output: Urine 300 450 Other: Voiding Method External Catheter External Catheter # Voids 1 - Exam -GENERAL: The patient is alert and oriented x3, not in any acute distress. Well developed, well nourished. Generally weak HEENT: Pupils are round and equally reacting to light. EOMI. No scleral icterus. No conjunctival pallor. Normocephalic, atraumatic. No pharyngeal erythema. No thyromegaly. CARDIOVASCULAR: S1 and S2 present. No murmurs, rubs, or gallops. -PULMONARY: Chest is clear to auscultation, bilateral scattered wheezing , no crackles. ABDOMEN: Soft, nontender, nondistended, normoactive bowel sounds. No palpable organomegaly. MUSCULOSKELETAL: No joint swelling or deformity. EXTREMITIES: No cyanosis, clubbing, or pedal edema. NEUROLOGICAL: Gross neurological examination did not reveal any focal deficits. SKIN: No rashes. no petechiae. - Labs CBC & Chem 7: 08/22/24 06:46 08/22/24 06:46 Labs: Abnormal Lab Results - Last 24 Hours (Table) 08/22/24 08/22/24 Range/Units 06:46 06:46 Lymphocytes # 0.1 L (1.0-4.8) k/uL Sodium 130 L (137-145) mmol/L Chloride 95 L (98-107) mmol/L Carbon Dioxide 35 H (22-30) mmol/L BUN 21 H (7-17) mg/dL Glucose 135 H (74-99) mg/dL Assessment and Plan Assessment: Assessment and plan: -Acute COPD exacerbation in a prior smoker, steroid-dependent: Worsening secondary to influenza A, causing sepsis: Slow to respond Increase DuoNeb every 4 hours.. IV Solu-Medrol,-40 mg every 8. -Acute pulmonary edema secondary IV fluids: Better Currently euvolemic, no IV fluid, no IV Lasix -Sepsis secondary to influenza A pneumonitis Continue with Tamiflu. Also continue with oral Bactrim -Acute metabolic encephalopathy and delirium secondary to above, POA: Better Improving -Chronic hypoxic respiratory failure secondary to underlying COPD 2 L of oxygen at home -Hyperlipidemia Lipitor 10 mg nightly -GERD Omeprazole -Chronic medical debility. At ECF At the baseline using a wheelchair. After fall has pain in the sacral area. -Hyperlipidemia Lipitor 10 mg with supper -Breast cancer-, triple negative. Received chemotherapy being followed by Dr. Garber from oncology. -Medical power of corporate attorney:Gracie nascimento, sister -Full code
[2024-08-23] MEDS ORDERED: ZINC OXIDE PASTE (Z-GUARD) 1 APPLIC TOPICAL PRN (10:49)
--- NOTE | 2024-08-23 11:42 | P.PN ---
Subjective 73-year-old patient, follows with Dr. Mohan. Ebd Special Education Teacher Dr. Parker. Oncologist Dr. Garber. Currently a resident of [facility]. Patient is at [facility]. Patient rather lethargic not really able to give me much of history. Sent in for shortness of breath fever. August 16: Overflowing the ER. Patient sister at the bedside. More awake today short of breath. Able to answer questions. Patient took a fall sometime ago. With lower back pain. Has not really been ambulatory because of the same. On a wheelchair. Patient presented 24 hours of fever. Increased cough. Not able to expectorate. The congested. Decreased appetite. Patient tested positive for influenza A. Tamiflu being started. Feels a bit better today. 2 L nasal ca nnula. COPD exacerbation. Bactrim DS added by pulmonary. August 17: Patient seen by me this morning. Was more short of breath. IV fluids discontinued. Dose of IV Lasix given. Over a liter of fluid was put out. I did repeat a dose of IV Lasix this afternoon. Because of crackles in the lungs. Oral intake better. August 18: Reclining in bed. Tired. Short of breath. Congested chest. Not abl e to expectorate. Discussed with Dr. Parker. Will see how patient does. Continue with IV Solu-Medrol oral Bactrim DuoNeb. Jcarlos will be increased to every 4. Did eat about 50% of breakfast lunch. P.o. Lasix added by pulmonary. Discussed with patient. Wishes to remain full code 08/19 Patient is still symptomatic, she still feels little tachypnea and coughing and some chest pain with coughing She is saturating 99% on 3 L oxygen, she is tachycardic with heart rate about 97, blood pressure was elevated but improving well after she was started on metoprolol 25 mg Repeat chest x-ray from yesterday showing slight improvement She is kept on IV Solu-Medrol 40 mg, Tamiflu and oral Bactrim. We are going to continue monitoring her for the next 2 days and further recommendation based on the clinical course 08/20 patient still short of breath tachypneic She still has coughing No chest pain No new complaint She is 97% on 3 L oxygen via nasal cannula Sodium 130. Rest of labs look stable. Patient remains on IV Solu-Medrol 08/21 Patient still feels tired and lethargic She is still tachypneic and wheezing She is on 3 L oxygen via nasal cannula with saturation in the mid 90s No chest pain, no other new complaint On IV Solu-Medrol Check labs in the morning 08/22 Patient breathing is improving she still has wheezing Patient herself she feels she can go to rehab today if cleared However patient will need to be on steroids still. Will continue monitoring for another 24 to 48 hours and may be considered for discharge if she improves and cleared by pulmonary service Her blood pressure on the high side, Norvasc 10 mg and IV hydralazine as needed increased from 5 mg up to 10 mg 08/23 Patient is improving significantly every day She still have some wheezing but she is more energetic and she is up in chair for the first time, she is more awake pleasant and relaxed. Patient since yesterday and today she agrees to be discharged actually she was happy she will be considered for discharge As per staff pulmonary team has cleared her for discharge as well Patient currently medically stable for discharge pending placement. Patient require prior authorization. Patient case was discussed with the human services case manager. Objective - Vital Signs Vital signs: Vital Signs Temp 98.6 F 08/23/24 08:36 Pulse 90 08/23/24 09:45 Resp 20 08/23/24 09:45 BP 171/70 08/23/24 08:36 Pulse Ox 96 08/23/24 09:06 FiO2 Intake & Output 08/22/24 08/23/24 08/23/24 18:59 06:59 18:59 Intake Total 260 20 240 Output Total 450 500 Balance -190 -480 240 Weight 59 kg 59 kg Intake: IV 20 20 Invasive Line 3 20 20 Oral 240 240 Output: Urine 450 500 Other: Voiding Method External Catheter Diaper Diaper Incontinent Incontinent External Catheter External Catheter # Voids 1 - Exam -GENERAL: The patient is alert and oriented x3, not in any acute distress. Well developed, well nourished. Generally weak HEENT: Pupils are round and equally reacting to light. EOMI. No scleral icterus. No conjunctival pallor. Normocephalic, atraumatic. No pharyngeal erythema. No thyromegaly. CARDIOVASCULAR: S1 and S2 present. No murmurs, rubs, or gallops. -PULMONARY: Chest is clear to auscultation, bilateral scattered wheezing , no cr ackles. ABDOMEN: Soft, nontender, nondistended, normoactive bowel sounds. No palpable organomegaly. MUSCULOSKELETAL: No joint swelling or deformity. EXTREMITIES: No cyanosis, clubbing, or pedal edema. NEUROLOGICAL: Gross neurological examination did not reveal any focal deficits. SKIN: No rashes. no petechiae. - Labs CBC & Chem 7: 08/22/24 06:46 08/22/24 06:46 Assessment and Plan Assessment: Assessment and plan: -Acute COPD exacerbation in a prior smoker, steroid-dependent: Worsening secondary to influenza A, causing sepsis: Slow to respond Increase DuoNeb every 4 hours.. IV Solu-Medrol,-40 mg every 8. -Acute pulmonary edema secondary IV fluids: Better Currently euvolemic, no IV fluid, no IV Lasix -Sepsis secondary to influenza A pneumonitis Continue with Tamiflu. Also continue with oral Bactrim -Acute metabolic encephalopathy and delirium secondary to above, POA: Better Improving -Chronic hypoxic respiratory failure secondary to underlying COPD 2 L of oxygen at home -Hyperlipidemia Lipitor 10 mg nightly -GERD Omeprazole -Chronic medical debility. At ECF At the baseline using a wheelchair. After fall has pain in the sacral area. -Hyperlipidemia Lipitor 10 mg with supper -Breast cancer-, triple negative. Received chemotherapy being followed by Dr. Garber from oncology. -Medical power of commercial real estate attorney:Gracie nascimento, sister -Full code Medically stable for discharge pending placement
--- NOTE | 2024-08-23 12:21 | P.PN ---
Subjective Progress Note Date: 08/23/24 Principal diagnosis: Influenza A. This is a 74-year-old female patient with a history of COPD, former smoker, stenotrophomonas pneumonia, hypertension, hyperlipidemia, right breast cancer status post 3 and chemoradiation. She was recently here less than 1 month ago after sustaining a fall a COPD exacerbation. Discharged to an extended care facility on August 01, 2024. They brought her back to the emergency room yesterday after finding her to have a fever and shortness of breath. The patient herself is somewhat of a poor historian and not clear as to why she was here. Her is at the bedside and provides most of the information. X- ray revealed no acute cardiopulmonary process. There is evidence of COPD. She was also noted to have a brief episode of atrial fibrillation with rapid ventricular response versus atrial tachycardia. She was initially on a Cardizem drip and a heparin drip. Seen by cardiology. She did have a temperature of 102.7. White count 5.2. Hemoglobin 11.8. Platelets 271. Sodium 134. Potassium 3.9. Bicarb 26. BUN 16. Creatinine 0.53. Glucose 156. She did test positive for influenza A. The patient is seen today August 17, 2024 in follow-up on the selective care unit. She is awake and alert in no acute distress. Resting fairly comfortably in bed. A bit stronger today compared to yesterday. Maintaining O2 saturations in the 90s on 4 L/min per nasal cannula. Still some wheezing. Blood culture reveals no growth. No new labs today. She is continued on DuoNeb inhalations, Symbicort, Solu-Medrol. Continued on Tamiflu. Continued on Bactrim prophylactically. She received Lasix early this morning and again this af ternoon. Diuresed 1.4 L thus far. The patient is seen today August 18, 2024 in follow-up on the selective care unit. She is currently sitting up in a chair at the bedside. Awake and alert in no acute distress. She is still short of breath with conversation. Short of breath with minimal exertion. She is continued on DuoNeb and elations, Symbicort, Solu-Medrol. Continued on Tamiflu. Lovenox for DVT prophylaxis. Bactrim for pneumonia prophylaxis. Blood culture reveals no growth. Sodium 1 31. Potassium 4.2. Bicarb 31. BUN 21. Creatinine 0.74. Glucose 109. Currently in a -1.8 L balance. The patient is seen today August 19, 2024 in follow-up on the selective care unit. She is currently resting in bed. Awake and alert in no acute distress. Maintaining O2 saturations in the 90s on liters per minute per nasal cannula. She is afebrile. Hemodynamically stable. Blood culture revealed no growth. Sodium 130. Potassium 4.2. Bicarb 34. BUN 22. Creatinine 0.81. Glucose 97. She remains on DuoNeb inhalations, Symbicort, Solu-Medrol. Remains on Tamiflu. Remains on empiric antibiotics in the form of Bactrim. Lovenox for DVT prophylaxis. Continued on Mucinex for congestion. Currently in a -400 mL balance. The patient is seen today August 19, 2024 in follow-up on the selective care unit. She is awake and alert in no acute distress. Currently resting fairly comfortably in bed. She still has some loose congested cough. She is maintaining good O2 saturations in the upper 90s on 3 L/min per nasal cannula. She is afebrile. Hemodynamically stable. Blood culture reveals no growth. She remains on DuoNeb inhalations, Symbicort, Solu-Medrol. Remains on Tamiflu. The patient has been refusing some of her medications today. Progress note dated August 21, 2024. 74-year-old female seen today in room 383. The patient is resting comfortably in bed. She is awake and alert. She is currently on 3 L nasal cannula. She is not receiving any IV fluids. She was admitted with a diagnosis of COPD exacerbation, and influenza A infection. No new laboratory data today. The most recent laboratory data was dated August 19, 2024. Progress note dated August 22, 2024. 74-year-old female seen today in room 383. She is sitting at the edge of the bed. She is currently on 3 L nasal cannula. She is not receiving any IV fluids. She is awake and alert. She is not having any overt respiratory distress or difficulty. Laboratory data today includes a white count 7, h emoglobin 12, hematocrit 35.7, and a platelet count of 248,000. Sodium 130, potassium 4.4, chloride 95, CO2 35, BUN 21, and creatinine 0.61. Glucose is 135. Progress note dated August 23, 2024. 74-year-old female seen today in room 383. The patient is resting comfortably in bed. She is awake and alert. She is not having any worsening shortness of breath, cough, wheezing, chest tightness, or phlegm production. She has been weaned down to 2 L of oxygen. The patient is hoping to be discharged soon. No new laboratory data today. Laboratory data from yesterday has been reviewed. No new x-ray data. Objective - Vital Signs Vital signs: Vital Signs Temp 98.6 F 08/23/24 08:36 Pulse 90 08/23/24 09:45 Resp 20 08/23/24 09:45 BP 171/70 08/23/24 08:36 Pulse Ox 96 08/23/24 09:06 FiO2 Intake & Output 08/22/24 08/23/24 08/23/24 18:59 06:59 18:59 Intake Total 260 20 240 Output Total 450 500 Balance -190 -480 240 Weight 59 kg 59 kg Intake: IV 20 20 Invasive Line 3 20 20 Oral 240 240 Output: Urine 450 500 Other: Voiding Method External Catheter Diaper Diaper Incontinent Incontinent External Catheter External Catheter # Voids 1 - Exam No acute distress, oriented 3. No respiratory distress. The patient is currently on 2 L. HEENT examination is grossly unremarkable. Mucous membranes are moist. No oral lesions. Neck supple. Full range of motion. No adenopathy thyromegaly or neck vein distention. Cardiovascular examination reveals regular rhythm rate. S1-S2 normal. No S3 or S4. No discernible murmur noted. Heart sounds are distant. Lungs reveal bilateral expiratory wheezes and rhonchi. No crackles. Breath sounds equal bilaterally. Abdomen soft bowel sounds are heard. No masses or tenderness. Extremities are intact. No cyanosis clubbing or edema. Skin is without rash or lesion. Neurologic examination is brief but nonfocal. - Labs CBC & Chem 7: 08/22/24 06:46 08/22/24 06:46 Assessment and Plan Assessment: Febrile illness secondary to acute influenza A infection. Acute influenza A infection. Acute exacerbation of chronic obstructive pulmonary disease. Acute on chronic hypoxemic respiratory failure secondary to above. Previous history of Pseudomonas and stenotrophomonas lung infections. Brief episode of atrial fibrillation versus multifocal atrial tachycardia. Recent discharge on August 01, 2024 to an ECF following a fall and compression fracture of L1 vertebrae, conservatively managed with a TLSO brace. Severe oxygen and steroid-dependent chronic obstructive pulmonary disease. Chronic hypoxemic respiratory failure, secondary to above. Altered mental status and suspected acute delirium. History of hyperlipidemia. History of breast cancer status post chemotherapy. Gastroesophageal reflux disease. Plan: Plan dated August 21, 2024. The patient is seen today in room 383. She can she is in, 3 L. She is in no respiratory distress. She is resting comfortably in bed. She is awake and alert. There is no audible wheezing, conversational dyspnea, or use of accessory muscles. All labs, x-rays, and medications are reviewed. The patient is overall prognosis remains guarded. She continues on updraft treatments, steroids, and antibiotics. We will continue to follow, make recommendations reg ng the way. She needs to complete 5 days of Tamiflu. Prognosis is guarded. She remains a full code patient. Plan dated August 22, 2024. The patient appears to be doing relatively well. She continues on oxygen at 3 L. She is not having any respiratory difficulty or distress. Medications are reviewed. Labs are reviewed. We will continue to follow make recommendations along the way. Prognosis is guarded. The patient has completed 5 days of Tamiflu. She remains a full code. Prognosis is guarded. Dictation was produced using [employer] software. Please excuse any grammatical, word or spelling errors. Plan dated August 23, 2024. The patient has been weaned down to 2 L. Clinically, she appears to be a bit more stable. She is awake and alert. No conversational dyspnea or use of accessory muscles. No audible wheezing. Labs, x-rays, and all medications are reviewed. The patient has been here in the hospital now for 8 days. From my perspective, from the pulmonary perspective, the patient could be discharged. Additional recommendations and suggestions are forthcoming. Prognosis is guarded. Dictation was produced using [employer] software. Please excuse any grammatical, word or spelling errors. Time with Patient: Less than 30
[2024-08-23 12:22] VITALS: BP 139/61; PULSE 72; RESP 16; TEMP 97.7
--- NOTE | 2024-08-23 13:16 | P.DS ---
Providers Date of admission: 08/15/24 18:30 Attending physician: Deonte Nolen Consults: 08/16/24 08:50 Consult Physician Urgent Consulting Provider: Margarito Parker Consult Reason/Comments: COPD Do you want consulting provider notified?: Yes Primary care physician: Jluis Mohan Hospital Course: Diagnoses: Yes -Acute COPD exacerbation in a prior smoker -Acute pulmonary edema secondary IV fluids: Better, currently euvolemic -Sepsis secondary to influenza A pneumonitis -Acute metabolic encephalopathy and delirium secondary to above, POA: Better -Chronic hypoxic respiratory failure secondary to underlying COPD -Hyperlipidemia -GERD -Chronic medical debility. At [facility] -Hyperlipidemia -Breast cancer-, triple negative. Hospital course: 73-year-old patient, follows with Dr. Mohan. 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 Oncologist Dr. Garber. Currently a resident of [facility]. Patient is at [facility]. Patient presents because of worsening dyspnea secondary to acute COPD exacerbation caused by her influenza A infection. Patient evaluated by sales engagement executive and she was treated with Tamiflu and Solu-Medrol, tromper also evaluated the patient for elevated troponin which is thought secondary to her influenza infection which is expected. Patient with no chest pain and cardiology team signed off the case Patient improved slowly and gradually. Today she feels much improved she still have some wheezing but her dyspnea and tachypnea much better, no other new complaint. Patient agreeable to go to rehab Patient was cleared for discharge by pulmonary service on taper prednisone Problems and management plan were discussed with the patient and he verbalized understanding and acceptance Patient was found stable and can be discharged home in guarded prognosis however he needs follow-up as an outpatient. Patient was instructed to follow up with PCP within one week and patient agrees Patient was started on Norvasc while she is on steroids, this might be tapered off of steroids stopped as well Physical exam Gen: patient is a AAOx3, no distress CVS: S1-S2, RRR, no murmur Lungs: B/L CTA, bilateral expiratory wheezing, improving Abdomen: soft, no distention, no tenderness, positive bowel sounds Extremity: no leg edema or induration Time spent more than 35 minutes Patient Condition at Discharge: Serious Plan - Discharge Summary Discharge Rx Participant: No New Discharge Prescriptions: New predniSONE 10 mg PO DIRECTED #40 tab No Action Ipratropium-Albuterol Nebulize [Aggieb 0.5 mg-3 mg/3 ml Soln] 3 ml INHALATION RT-Q6H PRN PRN Reason: COPD predniSONE 10 mg PO Q2D Ipratropium-Albuterol Nebulize [Duoneb 0.5 mg-3 mg/3 ml Soln] 3 ml INHALATION RT-QID each guaiFENesin [guaiFENesin Oral Solution] 200 mg PO QID Naloxone HCl [Narcan] 4 mg NASAL DIRECTED PRN PRN Reason: overdose Omeprazole [PriLOSEC] 20 mg PO DAILY traMADol HCl [Ultram] 50 mg PO Q6H PRN PRN Reason: Pain guaiFENesin [Mucinex] 600 mg PO BID Mometasone/Formoterol [Dulera 200 Mcg-5 Mcg Inhaler] 2 puff INHALATION RT-BID predniSONE 5 mg PO Q2D bisacodyL [Dulcolax] 5 mg PO DAILY PRN tab PRN Reason: Constipation Metoprolol Tartrate [Lopressor] 25 mg PO BID tab Mag Hydrox/Al Hydrox/Simeth [Maalox] 15 ml PO Q6HR PRN ml PRN Reason: Indigestion Acetaminophen [Tylenol 8 Hour] 650 mg PO Q6H PRN PRN Reason: Pain Calcium Carbonate [Tums] 1,000 mg PO Q4HR PRN PRN Reason: GERD Latanoprost [Latanoprost 0.005%] 1 drop BOTH EYES HS Naloxone HCl 0.4 mg IM DIRECTED PRN PRN Reason: overdose Discharge Medication List Ipratropium-Albuterol Nebulize [Duoneb 0.5 mg-3 mg/3 ml Soln] 3 ml INHALATION RT-Q6H PRN 06/25/23 [History] guaiFENesin [Mucinex] 600 mg PO BID 07/21/24 [History] Mometasone/Formoterol [Dulera 200 Mcg-5 Mcg Inhaler] 2 puff INHALATION RT-BID 07/28/24 [History] predniSONE 5 mg PO Q2D 07/28/24 [History] predniSONE 10 mg PO Q2D 07/28/24 [History] Ipratropium-Albuterol Nebulize [Duoneb 0.5 mg-3 mg/3 ml Soln] 3 ml INHALATION RT-QID each 08/01/24 [Rx] Mag Hydrox/Al Hydrox/Simeth [Maalox] 15 ml PO Q6HR PRN ml 08/01/24 [Rx] Metoprolol Tartrate [Lopressor] 25 mg PO BID tab 08/01/24 [Rx] bisacodyL [Dulcolax] 5 mg PO DAILY PRN tab 08/01/24 [Rx] Acetaminophen [Tylenol 8 Hour] 650 mg PO Q6H PRN 08/15/24 [History] Calcium Carbonate [Tums] 1,000 mg PO Q4HR PRN 08/15/24 [History] Latanoprost [Latanoprost 0.005%] 1 drop BOTH EYES HS 08/15/24 [History] Naloxone HCl 0.4 mg IM DIRECTED PRN 08/15/24 [History] Naloxone HCl [Narcan] 4 mg NASAL DIRECTED PRN 08/15/24 [History] Omeprazole [PriLOSEC] 20 mg PO DAILY 08/15/24 [History] guaiFENesin [guaiFENesin Oral Solution] 200 mg PO QID 08/15/24 [History] predniSONE 10 mg PO DIRECTED #40 tab 08/22/24 [Rx] amLODIPine [Norvasc] 10 mg PO DAILY tab 08/23/24 [Rx] traMADol HCl [Ultram] 50 mg PO Q6H PRN 2 Days #2 tab 08/23/24 [Rx] Follow up Appointment(s)/Referral(s): Jluis Mohan DO [Primary Care Provider] - 1-2 days
== END 2024-08-23 15:46 | DRG 871 ==
LOC: EC 14:17 → 3SCARD 18:30
PROVIDERS: ADMIT Hospitalist; ATTEND Hospitalist
DX: A41.89 Other specified sepsis (principal); G93.41 Metabolic encephalopathy; J10.01 Influenza due to other identified influenza virus with the same other identified influenza virus pneumonia; J96.21 Acute and chronic respiratory failure with hypoxia; J81.0 Acute pulmonary edema; J44.1 Chronic obstructive pulmonary disease with (acute) exacerbation; I10 Essential (primary) hypertension; I48.91 Unspecified atrial fibrillation; E78.5 Hyperlipidemia, unspecified; K21.9 Gastro-esophageal reflux disease without esophagitis; S32.019G Unspecified fracture of first lumbar vertebra, subsequent encounter for fracture with delayed healing; M54.50 Low back pain, unspecified; Z79.52 Long term (current) use of systemic steroids; Z99.81 Dependence on supplemental oxygen; Z79.51 Long term (current) use of inhaled steroids; Z79.899 Other long term (current) drug therapy; Z87.891 Personal history of nicotine dependence; Z92.21 Personal history of antineoplastic chemotherapy; Z92.3 Personal history of irradiation; Z85.3 Personal history of malignant neoplasm of breast; Z17.421 Hormone receptor negative with human epidermal growth factor receptor 2 negative status; Z88.8 Allergy status to other drugs, medicaments and biological substances
CPT/HCPCS: 36415; 71046; 80048; 80053; 83605; 83735; 83880; 84100; 84484; 85025; 85610; 85730; 87040; 87636; 93005; 94640; 94760; 96365; 96366; 96367; 96368; 96375; 99291